=== PATIENT | male | born 1950 | race Caucasian/White ===

== ENCOUNTER → 2017-07-25 | Outpatient (CLI) | payer OTHER ==
[2017-07-25 12:50] LABS: ALT 33 U/L (21-72); AST 17 U/L (17-59); Alkaline Phosphatase 48 U/L (38-126); Anion Gap 9 mmol/L; Blood Urea Nitrogen 22 mg/dL (9-20); Calcium 9.1 mg/dL (8.4-10.2); Carbon Dioxide 20 mmol/L (22-30); Chloride 105 mmol/L (98-107); Glucose 222 mg/dL (74-99); Non-African American GFR(MDRD) >60 (>60 ml/min/1.73 sqM); Sodium 134 mmol/L (137-145); Total Bilirubin 0.5 mg/dL (0.2-1.3); Total Protein 6.7 g/dL (6.3-8.2)
[2017-07-25 13:19] LABS: Prostate Specific Antigen 0.61 ng/mL (0.00-4.00)
[2017-07-25 20:44] LABS: Hemoglobin A1C 5.8 % (4.2-6.1)
== END ==
LOC: LABWHC1 10:50
PROVIDERS: ATTEND Internal Medicine
DX: E11.9 Type 2 diabetes mellitus without complications (principal); E03.9 Hypothyroidism, unspecified; I10 Essential (primary) hypertension; N40.0 Benign prostatic hyperplasia without lower urinary tract symptoms
CPT/HCPCS: 36415; 80053; 83036; 84153

== ENCOUNTER 2017-10-13 08:17 | Observation (INO) | payer OTHER ==
[2017-10-13] MEDS ORDERED: SODIUM CHLORIDE 0.9% 1,000 ML IV STA (08:20)
[2017-10-13] MEDS ORDERED: SODIUM CHLORIDE 0.9% 500 ML IV STA (08:20)
--- NOTE | 2017-10-13 08:24 | ED ---
General Adult HPI - General Stated complaint: Syncope Time Seen by Provider: 10/13/17 08:20 Source: patient, EMS, RN notes reviewed - History of Present Illness Initial comments: 66-year-old male with past medical history of hypertension and diabetes presents with syncopal episode. Patient got up this morning, went outside for a smoke, came and took his medications, had an episode of nausea and vomited one time. Patient states he then went to his chair, according to EMS did from a chair and collapsed. He was unresponsive according to family. When EMS arrived patient was alert and oriented, no postictal state. Patient's blood pressure at that time was 80 systolic, heart rate 60. Patient was pale and diaphoretic. Patient has no pain complaints. No headache. No neck pain. No chest pain shortness of breath. No abdominal pain. Patient states when he went to bed this morning he felt well. - Related Data Home Medications Medication Instructions Recorded Confirmed INSULIN LISPRO (humaLOG) [humaLOG] See Protocol SQ TID PRN 12/08/15 07/18/16 Divalproex ER [Depakote ER] 1,000 mg PO HS 12/15/15 07/18/16 Loratadine [Claritin] 10 mg PO DAILY 12/15/15 07/18/16 DULoxetine HCL [Cymbalta] 60 mg PO DAILY 07/18/16 07/18/16 Insulin Glargine,Hum.rec.anlog 30 units INJ HS 07/18/16 07/18/16 [Toujeo Solostar] Lisinopril [Zestril] 10 mg PO DAILY 07/18/16 07/18/16 Previous Rx's Medication Instructions Recorded Atorvastatin [Lipitor] 10 mg PO HS #30 tab 12/03/15 LORazepam [Ativan] 1 mg PO Q8HR PRN #30 tab 12/03/15 Levothyroxine Sodium [Synthroid] 75 mcg PO DAILY@0630 #30 tab 12/03/15 Allergies Allergy/AdvReac Type Severity Reaction Status Date / Time No Known Allergies Allergy Verified 10/13/17 08:22 Review of Systems ROS Statement: Those systems with pertinent positive or pertinent negative responses have been documented in the HPI. ROS Other: All systems not noted in ROS Statement are negative. Past Medical History Past Medical History: Diabetes Mellitus, Hyperlipidemia, Hypertension, Thyroid Disorder History of Any Multi-Drug Resistant Organisms: None Reported Past Surgical History: Orthopedic Surgery Additional Past Surgical History / Comment(s): right hip, Past Psychological History: Bipolar, PTSD Smoking Status: Current some day smoker Past Alcohol Use History: None Reported Past Drug Use History: None Reported General Exam General appearance: alert, lethargic Head exam: Present: atraumatic, normocephalic Eye exam: Present: normal appearance, PERRL ENT exam: Present: normal exam Neck exam: Present: normal inspection. Absent: tenderness, meningismus Respiratory exam: Present: normal lung sounds bilaterally. Absent: respiratory distress Cardiovascular Exam: Present: regular rate, normal rhythm GI/Abdominal exam: Present: soft. Absent: distended, tenderness Extremities exam: Present: normal inspection, normal capillary refill. Absent: pedal edema Neurological exam: Present: alert, oriented X3, CN II-XII intact. Absent: motor sensory deficit Psychiatric exam: Present: normal affect, normal mood Skin exam: Present: warm, intact, diaphoretic. Absent: cyanosis Course Vital Signs 10/13/17 10/13/17 08:18 09:40 Temperature 97.1 F L Pulse Rate 65 Pulse Rate [ 70 Sitting] Pulse Rate [ 81 Standing] Pulse Rate [ 68 Supine] Respiratory 18 18 Rate Blood Pressure 128/58 Blood Pressure 100/53 [Sitting] Blood Pressure 97/52 [Standing] Blood Pressure 99/55 [Supine] O2 Sat by Pulse 100 Oximetry EKG Findings - EKG Comments: EKG Findings:: EKG shows sinus rhythm with first-degree AV block, ventricular rate 65, DC interval 228, QRS duration 84, QTC 45, no ST segment elevation or depression, no T-wave abnormality Medical Decision Making - Medical Decision Making 66-year-old male presenting with syncopal episode. Patient's history consistent with vasovagal syncope, although patient is somewhat orthostatic in the emergency department. Chest x-ray was obtained, shows no focal pneumonia or acute findings. CT of the head is negative for intracranial hemorrhage, there is a old lacunar infarct unchanged from previous. Hemoglobin stable 12.3 , potassium mildly elevated 5.4. Creatinine 1.3 from baseline 1.1. Troponin is negative. Patient is given IV hydration emergency department. He will be admitted for telemetry, and continued IV hydration. - Lab Data Result diagrams: 10/13/17 08:35 10/13/17 08:35 Lab Results 10/13/17 10/13/17 10/13/17 Range/Units 08:35 08:35 08:35 WBC 5.1 (3.8-10.6) k/uL RBC 4.04 L (4.30-5.90) m/uL Hgb 12.3 L (13.0-17.5) gm/dL Hct 38.2 L (39.0-53.0) % MCV 94.6 (80.0-100.0) fL MCH 30.4 (25.0-35.0) pg MCHC 32.1 (31.0-37.0) g/dL RDW 13.6 (11.5-15.5) % Plt Count 279 (150-450) k/uL Neutrophils % 62 % Lymphocytes % 27 % Monocytes % 6 % Eosinophils % 4 % Basophils % 1 % Neutrophils # 3.2 (1.3-7.7) k/uL Lymphocytes # 1.4 (1.0-4.8) k/uL Monocytes # 0.3 (0-1.0) k/uL Eosinophils # 0.2 (0-0.7) k/uL Basophils # 0.1 (0-0.2) k/uL PT (9.0-12.0) sec INR (<1.2) APTT (22.0-30.0) sec Sodium 140 (137-145) mmol/L Potassium 5.4 H (3.5-5.1) mmol/L Chloride 107 (98-107) mmol/L Carbon Dioxide 25 (22-30) mmol/L Anion Gap 8 mmol/L BUN 28 H (9-20) mg/dL Creatinine 1.38 H (0.66-1.25) mg/dL Est GFR (MDRD) Af Amer >60 (>60 ml/min/1.73 sqM) Est GFR (MDRD) Non-Af 52 (>60 ml/min/1.73 sqM) Glucose 112 H (74-99) mg/dL Calcium 9.5 (8.4-10.2) mg/dL Magnesium 1.9 (1.6-2.3) mg/dL Total Bilirubin 0.4 (0.2-1.3) mg/dL AST 17 (17-59) U/L ALT 25 (21-72) U/L Alkaline Phosphatase 44 (38-126) U/L Total Creatine Kinase 61 (55-170) U/L CK-MB (CK-2) 0.4 (0.0-2.4) ng/mL CK-MB (CK-2) Rel Index 0.7 Troponin I <0.012 (0.000-0.034) ng/mL Total Protein 6.9 (6.3-8.2) g/dL Albumin 3.9 (3.5-5.0) g/dL 10/13/17 Range/Units 08:35 WBC (3.8-10.6) k/uL RBC (4.30-5.90) m/uL Hgb (13.0-17.5) gm/dL Hct (39.0-53.0) % MCV (80.0-100.0) fL MCH (25.0-35.0) pg MCHC (31.0-37.0) g/dL RDW (11.5-15.5) % Plt Count (150-450) k/uL Neutrophils % % Lymphocytes % % Monocytes % % Eosinophils % % Basophils % % Neutrophils # (1.3-7.7) k/uL Lymphocytes # (1.0-4.8) k/uL Monocytes # (0-1.0) k/uL Eosinophils # (0-0.7) k/uL Basophils # (0-0.2) k/uL PT 10.4 (9.0-12.0) sec INR 1.0 (<1.2) APTT 20.9 L (22.0-30.0) sec Sodium (137-145) mmol/L Potassium (3.5-5.1) mmol/L Chloride (98-107) mmol/L Carbon Dioxide (22-30) mmol/L Anion Gap mmol/L BUN (9-20) mg/dL Creatinine (0.66-1.25) mg/dL Est GFR (MDRD) Af Amer (>60 ml/min/1.73 sqM) Est GFR (MDRD) Non-Af (>60 ml/min/1.73 sqM) Glucose (74-99) mg/dL Calcium (8.4-10.2) mg/dL Magnesium (1.6-2.3) mg/dL Total Bilirubin (0.2-1.3) mg/dL AST (17-59) U/L ALT (21-72) U/L Alkaline Phosphatase (38-126) U/L Total Creatine Kinase (55-170) U/L CK-MB (CK-2) (0.0-2.4) ng/mL CK-MB (CK-2) Rel Index Troponin I (0.000-0.034) ng/mL Total Protein (6.3-8.2) g/dL Albumin (3.5-5.0) g/dL Disposition Clinical Impression: Vasovagal syncope, Syncope due to orthostatic hypotension, Acute kidney injury , Hyperkalemia Disposition: ADMITTED IP TO THIS [facility] Condition: Stable Referrals: Sol Cerda MD [Primary Care Provider] - 1-2 days Decision to Admit Reason: Admit from EC Decision Date: 10/13/17 Decision Time: 10:27
[2017-10-13 08:48] LABS: Basophils # (A) 0.1 k/uL (0-0.2); Basophils % (A) 1 %; CH 30.6; CHCM 32.5; Eosinophils # (A) 0.2 k/uL (0-0.7); Eosinophils % (A) 4 %; HCT 38.2 % (39.0-53.0); HGB 12.3 gm/dL (13.0-17.5); Luc # (Auto) 0.07; Luc % (Auto) 1; Lymphocytes # (A) 1.4 k/uL (1.0-4.8); Lymphocytes % (A) 27 %; MCH 30.4 pg (25.0-35.0); MCHC 32.1 g/dL (31.0-37.0); MCV 94.6 fL (80.0-100.0); Mean Platelet Volume 7.4; Monocytes # (A) 0.3 k/uL (0-1.0); Monocytes % (A) 6 %; Neutrophils # (A) 3.2 k/uL (1.3-7.7); Neutrophils % (A) 62 %; RBC 4.04 m/uL (4.30-5.90); RDW 13.6 % (11.5-15.5); WBC 5.1 k/uL (3.8-10.6); WBC (Perox) 5.31
[2017-10-13 08:57] LABS: ALT 25 U/L (21-72); AST 17 U/L (17-59); Alkaline Phosphatase 44 U/L (38-126); Anion Gap 8 mmol/L; Blood Urea Nitrogen 28 mg/dL (9-20); Calcium 9.5 mg/dL (8.4-10.2); Carbon Dioxide 25 mmol/L (22-30); Chloride 107 mmol/L (98-107); Glucose 112 mg/dL (74-99); Magnesium 1.9 mg/dL (1.6-2.3); Non-African American GFR(MDRD) 52 (>60 ml/min/1.73 sqM); Potassium 5.4 mmol/L (3.5-5.1); Sodium 140 mmol/L (137-145); Total Bilirubin 0.4 mg/dL (0.2-1.3); Total Protein 6.9 g/dL (6.3-8.2)
[2017-10-13 09:08] LABS: Prothrombin Time 10.4 sec (9.0-12.0)
[2017-10-13 09:09] LABS: Creatine Kinase 61 U/L (55-170)
[2017-10-13 09:21] LABS: Creatine Kinase MB 0.4 ng/mL (0.0-2.4); Troponin I <0.012 ng/mL (0.000-0.034)
--- NOTE | 2017-10-13 09:25 | XR ---
EXAMINATION TYPE: XR chest 2V DATE OF EXAM: 10/13/2017 HISTORY: syncope. REFERENCE: Previous study dated 12/08/2015. FINDINGS: The lungs are overinflated. The lungs are clear. Pleural spaces are clear. The heart is mil dly prominent. IMPRESSION: 1. COPD. 2. BORDERLINE CARDIOMEGALY.
[2017-10-13 09:31] LABS: Partial Thromboplastin Time 20.9 sec (22.0-30.0)
--- NOTE | 2017-10-13 09:34 | CT ---
EXAMINATION TYPE: CT brain wo con DATE OF EXAM: 10/13/2017 COMPARISON: Previous study dated 11/05/2015 HISTORY: Syncope CT DLP: 1028.8 mGycm Automated exposure control for dose reduction was used. FINDINGS: There is evidence of an old lacunar infarct in the internal capsule on the right. This was present pr eviously. Central structures are midline. There is no evidence of hydrocephalus. There is some diffus e periventricular white matter lucency, compatible with chronic white matter ischemic change. There i s no acute focal lesion, mass effect or midline shift identified. I do not see evidence of intracrani al blood. Visualized portions of the paranasal sinuses and mastoids are clear. No depressed skull fracture is s een. IMPRESSION: 1. NO ACUTE INTRACRANIAL ABNORMALITY. 2. EVIDENCE OF ABNORMAL LACUNAR INFARCT IN THE RIGHT INTERNAL CAPSULE. 3. WHITE MATTER ISCHEMIC CHANGE.
[2017-10-13] MEDS ORDERED: ACETAMINOPHEN TAB 325 MG TAB PO PRN (10:20)
[2017-10-13] MEDS ORDERED: NALOXONE 0.4 MG/ML 1 ML VIAL IV PRN (10:20)
[2017-10-13] MEDS ORDERED: SODIUM CHLORIDE 0.9% 500 ML IV ONE (10:20)
[2017-10-13] MEDS ORDERED: ONDANSETRON 4 MG/2 ML VIAL IVP PRN (10:20)
[2017-10-13 11:47] VITALS: BMI 22.4
[2017-10-13] MEDS ORDERED: INSULIN LISPRO 12 UNIT SQ PRN (13:22)
[2017-10-13] MEDS ORDERED: PALIPERIDONE IM 156 MG/ML SYG IM SCH (13:30)
--- NOTE | 2017-10-13 13:51 | P.HPIM ---
History of Present Illness 66-year-old male with past medical history of hypertension and diabetes presents with syncopal episode. Patient got up this morning, went outside for a smoke, came and took his medications, had an episode of nausea and vomited one time. Patient states he then went to his chair, according to EMS did from a chair and collapsed. He was unresponsive according to family. When EMS arrived patient was alert and oriented, no postictal state. Patient's blood pressure at that time was 80 systolic, heart rate 60. Patient was pale and diaphoretic. Patient has no pain complaints. No headache. No neck pain. No chest pain shortness of breath. No abdominal pain. Patient states when he went to bed this morning he felt well. Patient does have elevated creatinine patient does have positive orthostatic vitals. Patient was started on IV fluids and lisinopril will be held. I'll change the insulin regimen a little bit today and we will increase the dose of Lantus decrease the dose of pre-meal insulin along with sliding scale insulin. Review of Systems REVIEW OF SYSTEMS: CONSTITUTIONAL: No fever, no malaise, no fatigue. HEENT: No recent visual problems or hearing problems. Denied any sore throat. CARDIOVASCULAR: No chest pain, orthopnea, PND, no palpitations, PULMONARY: No shortness of breath, no cough, no hemoptysis. GASTROINTESTINAL: No diarrhea, no nausea, no vomiting, no abdominal pain. Normoactive bowel sounds. NEUROLOGICAL: No headaches, no weakness, no numbness. HEMATOLOGICAL: Denies any bleeding or petechiae. GENITOURINARY: Denies any burning micturition, frequency, or urgency. MUSCULOSKELETAL/RHEUMATOLOGICAL: Denies any joint pain, swelling, or any muscle pain. ENDOCRINE: Denies any polyuria or polydipsia. The rest of the 14-point review of systems is negative. Past Medical History Past Medical History: Diabetes Mellitus, Hyperlipidemia, Hypertension, Thyroid Disorder History of Any Multi-Drug Resistant Organisms: None Reported Past Surgical History: Orthopedic Surgery Additional Past Surgical History / Comment(s): right hip, Past Psychological History: Bipolar, PTSD Smoking Status: Current some day smoker Past Alcohol Use History: None Reported Past Drug Use History: None Reported Medications and Allergies Home Medications Medication Instructions Recorded Confirmed Type Atorvastatin [Lipitor] 10 mg PO HS #30 tab 01/08/16 11/18/17 Rx Levothyroxine Sodium [Synthroid] 75 mcg PO DAILY@0630 #30 tab 12/03/15 10/13/17 Rx INSULIN LISPRO (humaLOG) [humaLOG] 35 unit SQ TID PRN 12/08/15 10/13/17 History Loratadine [Claritin] 10 mg PO DAILY 12/15/15 10/13/17 History Insulin Glargine,Hum.rec.anlog 30 units INJ HS 07/18/16 10/13/17 History [Toujeo Solostar] Lisinopril [Zestril] 10 mg PO DAILY 07/18/16 10/13/17 History Paliperidone IM [Invega Sustenna] 156 mg IM DIRECTED 10/13/17 10/13/17 History fluvoxaMINE [Luvox] 50 mg PO DAILY 10/13/17 10/13/17 History Allergies Allergy/AdvReac Type Severity Reaction Status Date / Time No Known Allergies Allergy Verified 10/13/17 12:13 Physical Exam Vitals: Vital Signs Temp Pulse Pulse Pulse Pulse Resp BP 10/13/17 12:00 98.0 F 71 20 10/13/17 11:32 98.0 F 71 20 10/13/17 11:00 97.8 F 68 20 123/58 10/13/17 09:40 70 81 68 18 10/13/17 08:18 97.1 F L 65 18 128/58 BP BP BP Pulse Ox 10/13/17 12:00 151/87 100 10/13/17 11:32 151/87 100 10/13/17 11:00 98 10/13/17 09:40 100/53 97/52 99/55 10/13/17 08:18 100 Intake and Output 10/12/17 10/13/17 10/13/17 22:59 06:59 14:59 Intake Total 1939 Balance 1939 Intake: Intake, IV Titration 1700 Amount Sodium Chloride 0.9% 1, 700 000 ml @ 100 mls/hr IV . Q10H STA Rx#:[id number] Sodium Chloride 0.9% 500 500 ml @ 999 mls/hr IV .Q31M ONE Rx#:[id number] Sodium Chloride 0.9% 500 500 ml @ 999 mls/hr IV .Q31M STA Rx#:[id number] Oral 240 Other: Voiding Method Urinal Weight 74.843 kg Patient Weight 10/14/17 06:59 Weight 74.843 kg PHYSICAL EXAMINATION: GENERAL: The patient is alert and oriented x3, not in any acute distress. Well developed, well nourished. HEENT: Pupils are round and equally reacting to light. EOMI. No scleral icterus. No conjunctival pallor. Normocephalic, atraumatic. No pharyngeal erythema. No thyromegaly. CARDIOVASCULAR: S1 and S2 present. No murmurs, rubs, or gallops. PULMONARY: Chest is clear to auscultation, no wheezing or crackles. ABDOMEN: Soft, nontender, nondistended, normoactive bowel sounds. No palpable organomegaly. MUSCULOSKELETAL: No joint swelling or deformity. EXTREMITIES: No cyanosis, clubbing, or pedal edema. NEUROLOGICAL: Gross neurological examination did not reveal any focal deficits. SKIN: No rashes. Results CBC & Chem 7: 10/13/17 08:35 10/13/17 08:35 Labs: Abnormal Lab Results - Last 24 Hours (Table) 10/13/17 10/13/17 10/13/17 Range/Units 08:35 08:35 08:35 RBC 4.04 L (4.30-5.90) m/uL Hgb 12.3 L (13.0-17.5) gm/dL Hct 38.2 L (39.0-53.0) % APTT 20.9 L (22.0-30.0) sec Potassium 5.4 H (3.5-5.1) mmol/L BUN 28 H (9-20) mg/dL Creatinine 1.38 H (0.66-1.25) mg/dL Glucose 112 H (74-99) mg/dL Thrombosis Risk Factor Assmnt - Choose All That Apply Any of the Below Risk Factors Present?: Yes Each Factor Represents 1 point: Abnormal pulmonary function (COPD) Other Risk Factors: Yes Each Risk Factor Represents 2 Points: Age 61-74 years Other congenital or acquired thrombophilia - If yes, enter type in comment: No Thrombosis Risk Factor Assessment Total Risk Factor Score: 3 Thrombosis Risk Factor Assessment Level: Moderate Risk Assessment and Plan Plan: #1 syncope: Intravascularly depletion. Patient was started on IV fluids at 100 mL per hour lisinopril will be held. Patient does have significant psychiatric issues probably has poor Sonia intake denied any diarrhea at this time. #2 acute renal failure: Prerenal azotemia due to intravascular volume depletion as mentioned above IV fluids as mentioned above. #3 type 2 diabetes mellitus: We'll change his insulin regimen increase the dose of long-acting insulin decrease a low-dose of pre-meal insulin along with sliding scale be. #4 hypertension lisinopril will be held due to acute renal dysfunction and syncope and intravascular volume depletion. #5 other psychiatric issues continue her home psychiatric medications including Depakote #6 hyperlipidemia #7 hypothyroidism #8 nicotine abuse: Counseling was provided For above-mentioned chronic medical problems patient will be continued on appropriate home medications
[2017-10-13 14:54] LABS: Glucose,Whole Blood 116 mg/dL (75-99)
[2017-10-13 15:09] LABS: Creatine Kinase 63 U/L (55-170)
[2017-10-13 15:15] LABS: Creatine Kinase MB 0.5 ng/mL (0.0-2.4); Troponin I <0.012 ng/mL (0.000-0.034)
[2017-10-13 16:38] LABS: Glucose,Whole Blood 192 mg/dL (75-99)
[2017-10-13 16:51] LABS: Appearance,Urine Clear (Clear); Bilirubin,Urine Negative (Negative); Glucose,Urine (UA) Negative (Negative); Ketones,Urine 1+ (Negative); Leukocyte Esterase,Urine Negative (Negative); Nitrite,Urine Negative (Negative); Protein,Urine Negative (Negative); UA Billing (MACRO vs. MICRO) CHEM; Urobilinogen,Urine <2.0 mg/dL (<2.0)
[2017-10-13] MEDS: INSULIN ASPART 100 UNIT/ML 1 ML 10 ML VIAL SQ SCH (17:01)
[2017-10-13] MEDS: SODIUM CHLORIDE 0.9% 1,000 ML IV SCH ×2 (17:01→23:48)
[2017-10-13 20:53] LABS: Glucose,Whole Blood 180 mg/dL (75-99)
[2017-10-13] MEDS ORDERED: INSULIN DETEMIR 100 UNIT/ML 10 ML VIAL SQ SCH (21:00)
[2017-10-13] MEDS ORDERED: ATORVASTATIN 10 MG TAB PO SCH (21:00)
[2017-10-13 21:15] LABS: Creatine Kinase 69 U/L (55-170)
[2017-10-13 21:28] LABS: Creatine Kinase MB 0.5 ng/mL (0.0-2.4); Troponin I <0.012 ng/mL (0.000-0.034)
[2017-10-14 05:49] LABS: Glucose,Whole Blood 43 mg/dL (75-99)
[2017-10-14 06:10] LABS: Glucose,Whole Blood 63 mg/dL (75-99)
[2017-10-14 06:21] LABS: Basophils % (A) 1 %; CH 30.5; CHCM 33.3; Eosinophils # (A) 0.2 k/uL (0-0.7); Eosinophils % (A) 3 %; HCT 33.7 % (39.0-53.0); HDW 2.34; HGB 11.2 gm/dL (13.0-17.5); Luc # (Auto) 0.12; Luc % (Auto) 2; Lymphocytes # (A) 1.9 k/uL (1.0-4.8); Lymphocytes % (A) 36 %; MCH 30.6 pg (25.0-35.0); MCHC 33.1 g/dL (31.0-37.0); MCV 92.2 fL (80.0-100.0); Mean Platelet Volume 6.7; Monocytes # (A) 0.4 k/uL (0-1.0); Monocytes % (A) 7 %; Neutrophils # (A) 2.8 k/uL (1.3-7.7); Neutrophils % (A) 52 %; RBC 3.65 m/uL (4.30-5.90); RDW 12.8 % (11.5-15.5); WBC 5.4 k/uL (3.8-10.6)
[2017-10-14] MEDS ORDERED: LEVOTHYROXINE 75 MCG TAB PO SCH (06:30)
[2017-10-14 06:44] LABS: ALT 26 U/L (21-72); AST 16 U/L (17-59); Alkaline Phosphatase 36 U/L (38-126); Anion Gap 7 mmol/L; Blood Urea Nitrogen 22 mg/dL (9-20); Calcium 8.9 mg/dL (8.4-10.2); Carbon Dioxide 22 mmol/L (22-30); Chloride 110 mmol/L (98-107); Non-African American GFR(MDRD) >60 (>60 ml/min/1.73 sqM); Potassium 4.5 mmol/L (3.5-5.1); Sodium 139 mmol/L (137-145); Total Bilirubin 0.4 mg/dL (0.2-1.3); Total Protein 6.2 g/dL (6.3-8.2)
[2017-10-14 06:45] LABS: Glucose,Whole Blood 98 mg/dL (75-99)
[2017-10-14 06:59] LABS: Glucose 42 mg/dL (74-99)
[2017-10-14] MEDS: INSULIN ASPART 100 UNIT/ML 1 ML 10 ML VIAL SQ SCH ×2 (07:02→11:49)
[2017-10-14 08:49] VITALS: RESP 16
--- NOTE | 2017-10-14 08:54 | ECHOF ---
Referral Reason:syncope MEASUREMENTS -------- HEIGHT: 172.7 cm WEIGHT: 74.8 kg BP: IVSd: 1.1 cm (0.6 - 1.1) LVIDd: 2.9 cm (3.9 - 5.3) LVPWd: 1.2 cm (0.6 - 1.1) IVSs: 1.7 cm LVIDs: 2.0 cm LVPWs: 1.4 cm Ao Diam: 2.9 cm (2.0 - 3.7) AV Cusp: 1.9 cm (1.5 - 2.6) LA Diam: 2.5 cm (2.7 - 3.8) MV EXCURSION: 14.924 mm (> 18.000) MV EF SLOPE: 85 mm/s (70 - 150) EPSS: 0.8 cm MV E Fritz: 1.25 m/s MV DecT: 145 ms MV A Fritz: 1.43 m/s MV E/A Ratio: 0.87 FINDINGS -------- Sinus rhythm. This was a technically good study. The left ventricular size is normal. There is borderline concentric left ventricular hypertrophy. Overall left ventricular systolic function is normal with, an EF between 55 - 60 %. The right ventricle is normal in size and function. The left atrium is normal in size. The right atrium is normal in size. The aortic valve is trileaflet, and appears structurally normal. No aortic stenosis or regurgitation. The mitral valve leaflets are mildly thickened. Mild mitral regurgitation is present. Mild tricuspid regurgitation present. The right ventricular systolic pressure, as measured by Doppl er, is {RVSP}. Pulmonic valve appears structurally normal. The aortic root size is normal. The pericardium is normal. CONCLUSIONS -------- 1. Sinus rhythm. 2. This was a technically good study. 3. The left ventricular size is normal. 4. There is borderline concentric left ventricular hypertrophy. 5. Overall left ventricular systolic function is normal with, an EF between 55 - 60 %. 6. The right ventricle is normal in size and function. 7. The left atrium is normal in size. 8. The right atrium is normal in size. 9. The aortic valve is trileaflet, and appears structurally normal. No aortic stenosis or regurgitati on. 10. The mitral valve leaflets are mildly thickened. 11. Mild mitral regurgitation is present. 12. Mild tricuspid regurgitation present. 13. The right ventricular systolic pressure, as measured by Doppler, is {RVSP}. 14. Pulmonic valve appears structurally normal. 15. The aortic root size is normal. 16. The pericardium is normal. STORY TELLER: Blanca Nichols RDCS
[2017-10-14] MEDS: SODIUM CHLORIDE 0.9% 1,000 ML IV SCH (11:15)
[2017-10-14 11:25] LABS: Glucose,Whole Blood 260 mg/dL (75-99)
[2017-10-14 11:37] VITALS: BP 181/81; PULSE 65; TEMP 98.3
--- NOTE | 2017-10-14 13:45 | P.DS ---
Providers Date of admission: 10/13/17 10:20 Attending physician: Ashely Diaz Primary care physician: Zaida Lo [facility] Course: 66-year-old male with past medical history of hypertension and diabetes presents with syncopal episode. Patient got up this morning, went outside for a smoke, came and took his medications, had an episode of nausea and vomited one time. Patient states he then went to his chair, according to EMS did from a chair and collapsed. He was unresponsive according to family. When EMS arrived patient was alert and oriented, no postictal state. Patient's blood pressure at that time was 80 systolic, heart rate 60. Patient was pale and diaphoretic. Patient has no pain complaints. No headache. No neck pain. No chest pain shortness of breath. No abdominal pain. Patient states when he went to bed this morning he felt well. Patient does have elevated creatinine patient does have positive orthostatic vitals. Patient was started on IV fluids and lisinopril will be held. I'll change the insulin regimen a little bit today and we will increase the dose of Lantus decrease the dose of pre-meal insulin along with sliding scale insulin. Oct 14 2017 Patient is clinically doing well patient will be resumed on a low-dose of lisinopril echo cardiac murmur essentially within normal limits patient the blood sugars Doppler in spite of significantly lowering his insulin appropriate education to patient and his will be provided before I send him home today and patient the insulin regimen will be changed please refer to my department summary. PHYSICAL EXAMINATION: GENERAL: The patient is alert and oriented x3, not in any acute distress. Well developed, well nourished. HEENT: Pupils are round and equally reacting to light. EOMI. No scleral icterus. No conjunctival pallor. Normocephalic, atraumatic. No pharyngeal erythema. No thyromegaly. CARDIOVASCULAR: S1 and S2 present. No murmurs, rubs, or gallops. PULMONARY: Chest is clear to auscultation, no wheezing or crackles. ABDOMEN: Soft, nontender, nondistended, normoactive bowel sounds. No palpable organomegaly. MUSCULOSKELETAL: No joint swelling or deformity. EXTREMITIES: No cyanosis, clubbing, or pedal edema. NEUROLOGICAL: Gross neurological examination did not reveal any focal deficits. SKIN: No rashes. #1 syncope: Intravascularly depletion. Creatinine improved #2 acute renal failure: Prerenal azotemia improved #3 type 2 diabetes mellitus: #4 hypertension lisinopril will be held due to acute renal dysfunction and syncope and intravascular volume depletion. #5 other psychiatric issues continue her home psychiatric medications including Depakote #6 hyperlipidemia #7 hypothyroidism #8 nicotine abuse: Counseling was provided Patient Condition at Discharge: Stable Patient Condition at Discharge: Stable Plan - Discharge Summary New Discharge Prescriptions: Continue Atorvastatin [Lipitor] 10 mg PO HS #30 tab Levothyroxine Sodium [Synthroid] 75 mcg PO DAILY@0630 #30 tab Loratadine [Claritin] 10 mg PO DAILY fluvoxaMINE [Luvox] 50 mg PO DAILY Paliperidone IM [Invega Sustenna] 156 mg IM DIRECTED Changed Insulin Glargine,Hum.rec.anlog [Toujeo Solostar] 25 units INJ HS #0 INSULIN LISPRO (humaLOG) [humaLOG] 8 unit SQ TID PRN #0 PRN Reason: HYPERGLYCEMIA Lisinopril [Zestril] 5 mg PO DAILY #0 Discharge Medication List Atorvastatin [Lipitor] 10 mg PO HS #30 tab 12/03/15 [Rx] Levothyroxine Sodium [Synthroid] 75 mcg PO DAILY@0630 #30 tab 12/03/15 [Rx] Loratadine [Claritin] 10 mg PO DAILY 12/15/15 [History] Paliperidone IM [Invega Sustenna] 156 mg IM DIRECTED 10/13/17 [History] fluvoxaMINE [Luvox] 50 mg PO DAILY 10/13/17 [History] INSULIN LISPRO (humaLOG) [humaLOG] 8 unit SQ TID PRN #0 10/14/17 [Rx] Insulin Glargine,Hum.rec.anlog [Toujeo Solostar] 25 units INJ HS #0 10/14/17 [Rx ] Lisinopril [Zestril] 5 mg PO DAILY #0 10/14/17 [Rx] Follow up Appointment(s)/Referral(s): Sol Cerda MD [Primary Care Provider] - 3 Days (Please call office during normal business hours to schedule hospital follow up appointment.) Patient Instructions/Handouts: Syncope (DC) Discharge Disposition: HOME SELF-CARE
[2017-10-14] MEDS ORDERED: INSULIN DETEMIR 100 UNIT/ML 10 ML VIAL SQ SCH (21:00)
== END 2017-10-14 13:40 | disposition home or self-care (01) ==
LOC: EC 08:17 → 6SEL 10:20
PROVIDERS: ADMIT Internal Medicine; ATTEND Internal Medicine
DX: R55 Syncope and collapse (principal); E86.9 Volume depletion, unspecified; N17.9 Acute kidney failure, unspecified; I10 Essential (primary) hypertension; E78.5 Hyperlipidemia, unspecified; E11.9 Type 2 diabetes mellitus without complications; E03.9 Hypothyroidism, unspecified; J44.9 Chronic obstructive pulmonary disease, unspecified; F43.10 Post-traumatic stress disorder, unspecified; F31.9 Bipolar disorder, unspecified; F17.200 Nicotine dependence, unspecified, uncomplicated; Z79.4 Long term (current) use of insulin; Z79.899 Other long term (current) drug therapy
CPT/HCPCS: 99285 ×2; 96360 ×2; 96361 ×3; 36415; 93005; 93306; 80053 ×2; 82550; 82553; 83735; 84484; 85025 ×2; 85610; 85730; 81003; 71020; 70450; G0378 ×2

== ENCOUNTER 2018-12-06 20:59 | Inpatient (IN) | payer MEDICARE, OTHER ==
[2018-12-06] MEDS ORDERED: ENALAPRILAT 1.25 MG/ML 1 ML VIAL IVP STA (21:12)
[2018-12-06] MEDS ORDERED: IPRATROPIUM-ALBUTEROL 3 ML NEB INHALATION STA (21:12)
[2018-12-06] MEDS ORDERED: NITROGLYCERIN-D5W PMX 50 MG in DEXTROSE/WATER 1 250ML.BAG IV ONE (21:12)
--- NOTE | 2018-12-06 21:17 | ED ---
SOB HPI - General Stated Complaint: NICOLE Time Seen by Provider: 12/06/18 21:12 Source: patient, EMS Mode of arrival: EMS Limitations: no limitations - History of Present Illness Initial Comments: This is a 67-year-old male the ER for evaluation. Patient resents today for evaluation regarding significant shortness of breath, patient is insignificant rest for distress and unable to give history at this time patient's brought in by EMS EMS states patient was significantly profound hypoxic mildly responsive with oxygen in the 60s, pale diaphoretic. MD Complaint: shortness of breath -: unknown Radiation: other (Denies pain) Severity scale (1-10): 10 (Severe shortness of breath) Consistency: constant Known History Of: congestive heart failure Associated Symptoms: cough Treatments Prior to Arrival: oxygen, bronchodilator - Related Data Home Medications Medication Instructions Recorded Confirmed Loratadine [Claritin] 10 mg PO DAILY 12/15/15 12/06/18 fluvoxaMINE [Luvox] 50 mg PO DAILY 10/13/17 12/06/18 Insulin Degludec [Tresiba 25 unit SQ HS 12/06/18 12/06/18 Flextouch U-100] Insulin Lispro [Admelog] See Protocol SQ AC-TID 12/06/18 12/06/18 Levothyroxine Sodium [Synthroid] 75 mcg PO DAILY 12/06/18 12/06/18 Previous Rx's Medication Instructions Recorded Lisinopril [Zestril] 5 mg PO DAILY #0 10/14/17 Allergies Allergy/AdvReac Type Severity Reaction Status Date / Time No Known Allergies Allergy Verified 12/06/18 21:41 Review of Systems ROS Statement: Those systems with pertinent positive or pertinent negative responses have been documented in the HPI. ROS Other: All systems not noted in ROS Statement are negative. Past Medical History Past Medical History: Diabetes Mellitus, Hyperlipidemia, Hypertension, Thyroid Disorder History of Any Multi-Drug Resistant Organisms: None Reported Past Surgical History: Orthopedic Surgery Additional Past Surgical History / Comment(s): right hip, Past Psychological History: Bipolar, PTSD Smoking Status: Current some day smoker Past Alcohol Use History: None Reported Past Drug Use History: None Reported General Exam Limitations: altered mental status General appearance: alert, in distress Head exam: Present: atraumatic, normocephalic, normal inspection Eye exam: Present: normal appearance, PERRL, EOMI. Absent: scleral icterus, conjunctival injection, periorbital swelling ENT exam: Present: normal exam, mucous membranes moist Neck exam: Present: normal inspection. Absent: tenderness, meningismus, lymphadenopathy Respiratory exam: Present: respiratory distress, wheezes, rales, accessory muscle use, decreased breath sounds, prolonged expiratory. Absent: rhonchi, stridor Cardiovascular Exam: Present: normal rhythm, tachycardia, normal heart sounds. Absent: systolic murmur, diastolic murmur, rubs, gallop, clicks GI/Abdominal exam: Present: soft, normal bowel sounds. Absent: distended, tenderness, guarding, rebound, rigid Extremities exam: Present: normal inspection, full ROM, normal capillary refill. Absent: tenderness, pedal edema, joint swelling, calf tenderness Back exam: Present: normal inspection Neurological exam: Present: alert, oriented X3, CN II-XII intact Psychiatric exam: Present: normal affect, normal mood Skin exam: Present: warm, dry, intact, normal color. Absent: rash Course Vital Signs 12/06/18 12/06/18 12/06/18 21:12 21:16 21:28 Temperature 98.0 F Pulse Rate 128 H 123 H Respiratory 38 H 38 H Rate Blood Pressure 199/107 203/93 O2 Sat by Pulse 68 L 90 L 93 L Oximetry 12/06/18 12/06/18 12/06/18 21:31 21:48 22:34 Temperature Pulse Rate 120 H 112 H 100 Respiratory 39 H 38 H 34 H Rate Blood Pressure 159/76 148/74 94/55 O2 Sat by Pulse 93 L 98 98 Oximetry 12/06/18 12/06/18 23:00 23:22 Temperature 98.3 F Pulse Rate 90 89 Respiratory 31 H 30 H Rate Blood Pressure 103/54 98/66 O2 Sat by Pulse 98 98 Oximetry - Reevaluation(s) Reevaluation #1: 12/06/18 23:35 Medical record is reviewed with long history of psychiatric illness Reevaluation #2: 12/06/18 23:35 Patient continues to deny history of chest pain Reevaluation #3: 12/06/18 23:35 Cardiology made aware of elevated troponin Reevaluation #4: 12/06/18 23:35 Patient continues to deny chest pain Medical Decision Making - Lab Data Result diagrams: 12/06/18 21:23 12/06/18 21:23 Lab Results 12/06/18 12/06/18 12/06/18 Range/Units 21:14 21:23 21:23 WBC 13.1 H (3.8-10.6) k/uL RBC 3.99 L (4.30-5.90) m/uL Hgb 11.7 L (13.0-17.5) gm/dL Hct 36.3 L (39.0-53.0) % MCV 91.0 (80.0-100.0) fL MCH 29.4 (25.0-35.0) pg MCHC 32.3 (31.0-37.0) g/dL RDW 12.6 (11.5-15.5) % Plt Count 460 H (150-450) k/uL Neutrophils % 85 % Lymphocytes % 9 % Monocytes % 4 % Eosinophils % 0 % Basophils % 0 % Neutrophils # 11.1 H (1.3-7.7) k/uL Lymphocytes # 1.2 (1.0-4.8) k/uL Monocytes # 0.6 (0-1.0) k/uL Eosinophils # 0.0 (0-0.7) k/uL Basophils # 0.0 (0-0.2) k/uL PT (9.0-12.0) sec INR (<1.2) APTT (22.0-30.0) sec Sodium (137-145) mmol/L Potassium (3.5-5.1) mmol/L Chloride (98-107) mmol/L Carbon Dioxide (22-30) mmol/L Anion Gap mmol/L BUN (9-20) mg/dL Creatinine (0.66-1.25) mg/dL Est GFR (CKD-EPI)AfAm (>60 ml/min/1.73 sqM) Est GFR (CKD-EPI)NonAf (>60 ml/min/1.73 sqM) Glucose (74-99) mg/dL POC Glucose (mg/dL) 162 H (75-99) mg/dL POC Glu [employer] Reel Cameraman ID Emelia Morris Calcium (8.4-10.2) mg/dL Magnesium (1.6-2.3) mg/dL Total Bilirubin (0.2-1.3) mg/dL AST (17-59) U/L ALT (21-72) U/L Alkaline Phosphatase (38-126) U/L CK-MB (CK-2) 5.1 H (0.0-2.4) ng/mL Troponin I 2.290 H* (0.000-0.034) ng/mL NT-Pro-B Natriuret Pep pg/mL Total Protein (6.3-8.2) g/dL Albumin (3.5-5.0) g/dL 12/06/18 12/06/18 12/06/18 Range/Units 21:23 21:23 21:23 WBC (3.8-10.6) k/uL RBC (4.30-5.90) m/uL Hgb (13.0-17.5) gm/dL Hct (39.0-53.0) % MCV (80.0-100.0) fL MCH (25.0-35.0) pg MCHC (31.0-37.0) g/dL RDW (11.5-15.5) % Plt Count (150-450) k/uL Neutrophils % % Lymphocytes % % Monocytes % % Eosinophils % % Basophils % % Neutrophils # (1.3-7.7) k/uL Lymphocytes # (1.0-4.8) k/uL Monocytes # (0-1.0) k/uL Eosinophils # (0-0.7) k/uL Basophils # (0-0.2) k/uL PT 10.7 (9.0-12.0) sec INR 1.0 (<1.2) APTT 22.1 (22.0-30.0) sec Sodium 136 L (137-145) mmol/L Potassium 4.3 (3.5-5.1) mmol/L Chloride 101 (98-107) mmol/L Carbon Dioxide 23 (22-30) mmol/L Anion Gap 12 mmol/L BUN 25 H (9-20) mg/dL Creatinine 1.18 (0.66-1.25) mg/dL Est GFR (CKD-EPI)AfAm 74 (>60 ml/min/1.73 sqM) Est GFR (CKD-EPI)NonAf 64 (>60 ml/min/1.73 sqM) Glucose 164 H (74-99) mg/dL POC Glucose (mg/dL) (75-99) mg/dL POC Glu [employer] Reel Cameraman ID Calcium 8.3 L (8.4-10.2) mg/dL Magnesium 2.0 (1.6-2.3) mg/dL Total Bilirubin 0.7 (0.2-1.3) mg/dL AST 83 H (17-59) U/L ALT 46 (21-72) U/L Alkaline Phosphatase 56 (38-126) U/L CK-MB (CK-2) (0.0-2.4) ng/mL Troponin I (0.000-0.034) ng/mL NT-Pro-B Natriuret Pep 7660 pg/mL Total Protein 7.0 (6.3-8.2) g/dL Albumin 3.7 (3.5-5.0) g/dL - EKG Data -: EKG Interpreted by Me (EKG shows sinus tachycardia rate of 123, [place] 178, QRS 80, QTC 409.) Interpretation: other (Repeat EKG shows sinus tachycardia rate of 112, [place] 182, QRS 80, QTC 03/29/1948) Critical Care Time Critical Care Time: Yes Total Critical Care Time: 65 Disposition Clinical Impression: Congestive heart failure, Acute pulmonary edema, Hypertension, Hypertensive emergency, Acute respiratory failure with hypoxia Disposition: ADMITTED IP TO THIS HOSP Condition: Critical Is patient prescribed a controlled substance at d/c from ED?: No Referrals: Sol Cerda MD [Primary Care Provider] - 1-2 days
--- NOTE | 2018-12-06 21:44 | XR ---
EXAMINATION TYPE: XR chest 1V portable DATE OF EXAM: 12/06/2018 COMPARISON: 10/13/2017 INDICATION: Short of breath TECHNIQUE: Frontal and lateral views of the chest are obtained. FINDINGS: The heart size is normal. The pulmonary vasculature is prominent. There is diffuse increased lung markings. Findings can be compatible with pulmonary edema. Additional etiologies could be considered. Clinical correlation is recommended. IMPRESSION: 1. Diffuse increased lung markings most likely on the basis of pulmonary edema. Infectious etiologies neoplasm could be considered within the differential. Follow-up is recommended.
[2018-12-06 22:12] LABS: Basophils % (A) 0 %; Eosinophils % (A) 0 %; HCT 36.3 % (39.0-53.0); HGB 11.7 gm/dL (13.0-17.5); Lymphocytes # (A) 1.2 k/uL (1.0-4.8); Lymphocytes % (A) 9 %; MCH 29.4 pg (25.0-35.0); MCHC 32.3 g/dL (31.0-37.0); Mean Platelet Volume 6.6; Monocytes # (A) 0.6 k/uL (0-1.0); Monocytes % (A) 4 %; Neutrophils # (A) 11.1 k/uL (1.3-7.7); Neutrophils % (A) 85 %; Platelet Count 460 k/uL (150-450); RBC 3.99 m/uL (4.30-5.90); RDW 12.6 % (11.5-15.5); WBC 13.1 k/uL (3.8-10.6)
[2018-12-06 22:25] LABS: Albumin 3.7 g/dL (3.5-5.0); Calcium 8.3 mg/dL (8.4-10.2); Potassium 4.3 mmol/L (3.5-5.1); Total Bilirubin 0.7 mg/dL (0.2-1.3)
[2018-12-06 22:31] LABS: Partial Thromboplastin Time 22.1 sec (22.0-30.0); Prothrombin Time 10.7 sec (9.0-12.0)
[2018-12-06 22:55] LABS: Creatine Kinase MB 5.1 ng/mL (0.0-2.4)
[2018-12-06 23:02] LABS: Troponin I 2.29 ng/mL (0.000-0.034)
[2018-12-06 23:08] LABS: Glucose,Whole Blood 162 mg/dL (75-99)
[2018-12-06] MEDS ORDERED: MORPHINE SULFATE 2 MG/ML SYRINGE IVP STA (23:19)
[2018-12-06] MEDS ORDERED: FUROSEMIDE 10 MG/ML 4 ML VIAL IV STA (23:19)
[2018-12-06] MEDS ORDERED: ASPIRIN 325 MG TAB PO STA (23:37)
[2018-12-06] MEDS ORDERED: NALOXONE 0.4 MG/ML 1 ML VIAL IV PRN (23:37)
[2018-12-06] MEDS ORDERED: HEPARIN SODIUM,PORCINE 5,000 UNIT/ML 1 ML VIAL IV ONE (23:39)
[2018-12-06] MEDS ORDERED: HEPARIN SOD,PORK IN 0.45% NACL 25,000 UNIT in 0.45% NACL 1 250ML.BAG IV SCH (23:45)
[2018-12-07 01:05] LABS: Glucose,Whole Blood 187 mg/dL (75-99)
[2018-12-07 05:38] LABS: Basophils % (A) 0 %; Eosinophils % (A) 0 %; HCT 32.7 % (39.0-53.0); HGB 10.3 gm/dL (13.0-17.5); Lymphocytes # (A) 0.4 k/uL (1.0-4.8); Lymphocytes % (A) 5 %; MCH 29.6 pg (25.0-35.0); MCHC 31.5 g/dL (31.0-37.0); MCV 93.8 fL (80.0-100.0); Mean Platelet Volume 6.5; Monocytes # (A) 0.2 k/uL (0-1.0); Monocytes % (A) 2 %; Neutrophils # (A) 8.2 k/uL (1.3-7.7); Neutrophils % (A) 93 %; Platelet Count 334 k/uL (150-450); RBC 3.49 m/uL (4.30-5.90); RDW 12.6 % (11.5-15.5); WBC 8.9 k/uL (3.8-10.6)
[2018-12-07 05:48] LABS: Partial Thromboplastin Time 33.6 sec (22.0-30.0); Prothrombin Time 10.7 sec (9.0-12.0)
[2018-12-07 05:58] LABS: Potassium 5.1 mmol/L (3.5-5.1)
--- NOTE | 2018-12-07 06:00 | XR ---
EXAMINATION TYPE: XR chest 1V DATE OF EXAM: 12/07/2018 HISTORY: Pulmonary edema. REFERENCE: Previous study dated 12/06/2018. FINDINGS: Aeration is improved in both lungs. Heart size remains mildly prominent. Lung volumes are p rominent. Pleural spaces are clear. IMPRESSION: IMPROVING CHANGES OF PULMONARY EDEMA.
[2018-12-07] MEDS: HEPARIN SODIUM,PORCINE 5,000 UNIT/ML 1 ML VIAL IV PRN (06:04)
[2018-12-07 06:36] LABS: Phosphorus 5.1 mg/dL (2.5-4.5)
[2018-12-07] MEDS ORDERED: FUROSEMIDE 10 MG/ML 4 ML VIAL IV STA (06:43)
[2018-12-07 06:53] LABS: Glucose,Whole Blood 209 mg/dL (75-99)
[2018-12-07] MEDS: INSULIN ASPART 100 UNIT/ML 1 ML 10 ML VIAL SQ SCH ×4 (07:03→20:22)
[2018-12-07] MEDS: IPRATROPIUM-ALBUTEROL 3 ML NEB INHALATION SCH ×2 (08:39→11:53)
[2018-12-07] MEDS: PANTOPRAZOLE 40 MG/10 ML VIAL IV SCH (09:08)
[2018-12-07] MEDS: METOPROLOL SUCCINATE (ER) 25 MG TAB.ER.24H PO SCH (11:36)
--- NOTE | 2018-12-07 12:12 | CONS ---
CONSULTATION CHIEF COMPLAINT: Shortness of breath. Faisal is a 68-year-old gentleman with history of bipolar mood disorder, insulin- requiring diabetes, and hypothyroidism who presented to hospital with shortness of breath that is getting progressively worse through yesterday. It was moderate to severe intensity at rest. He initially required BiPAP and is currently on nasal cannula O2. His chest x-ray revealed pulmonary edema and he responded very well to intravenous diuretics. EKG does not reveal acute ischemic changes, but he ruled in for myocardial infarction with a troponin of 6.2. At the time of my evaluation this morning, he is pain free, hemodynamically stable and in no apparent distress. His girlfriend is with him. Girlfriend is sedation maker if he cannot. He does not have any other family from what he tells us. I advised him to undergo cardiac catheterization. I will do this tomorrow. PAST MEDICAL HISTORY: Significant for hypothyroidism, bipolar mood disorder. MEDICATIONS: Include Zestril 5 q. daily, Synthroid 75, insulin, Luvox, and Claritin. ALLERGIES: There are no known drug allergies. FAMILY HISTORY: Negative for premature coronary artery disease. SOCIAL HISTORY: Negative for smoking, EtOH abuse, or drug abuse. REVIEW OF SYSTEMS: HEENT is unremarkable. CARDIAC: As described above. RESPIRATORY: As described above. GI: Negative. GENITOURINARY: Negative. MUSCULOSKELETAL: Negative. DERMATOLOGIC: Negative. CONSTITUTIONAL: Negative. ONCOLOGICAL: Negative. Rest of the system review is not relevant. PHYSICAL EXAM: Comfortable at rest. Heart rate is 79 beats and blood pressure is 111/64, respiratory rate is 18. There is no jugular venous distention. Carotid upstroke is normal. There is no bruit. Chest exam reveals good air entry bilaterally. Heart exam reveals first and second heart sounds. No gallop. No murmur. No rub. Abdomen is soft, nontender. Exam of extremities did not reveal edema. Peripheral pulses are felt. EKG shows sinus tachycardia with nonspecific ST-T wave changes and poor R-wave progression. Chest x-ray shows acute pulmonary edema. ASSESSMENT: Acute pulmonary edema, secondary to anteroseptal myocardial infarction. PLAN: Will treat the patient with aspirin, intravenous heparin and intravenous Lasix. Obtain a 2D echo. Continue the JOSE M inhibitors and I will add beta blockers to his regimen. Patient is stable at the moment and does not have any chest pain and the difficulty in breathing had improved. I will schedule him for a cardiac catheterization tomorrow morning unless his symptoms worsen. FLORIAN / PRASHANTN: [id number] /
[2018-12-07 12:24] LABS: Glucose,Whole Blood 249 mg/dL (75-99)
--- NOTE | 2018-12-07 13:06 | P.HPIM ---
History of Present Illness Etc.-year-old pleasant gentleman came in with complaints of shortness of breath patient was quite a bit short of breath when she even he came and patient is found to have pulmonary edema. Patient is later found to have highly elevated troponins of around 6.5. Patient does smoke never had any history of coronary artery disease. I do not have an EKG in the computer patient appears to have non-ST elevation microinfarction leading to congestive heart failure and acute systolic dysfunction patient will go for cardiac catheterization today patient is on antiplatelet therapy. Patient was given a dose of Lasix yesterday in the ER and today morning with significant improved symptoms of shortness of breath patient denied any orthopnea proximal nocturnal dyspnea patient's symptoms onset is 1 day duration patient denied any chest pain. She was comparing of dry cough denied any fever chills. Review of Systems REVIEW OF SYSTEMS: CONSTITUTIONAL: No fever, no malaise, no fatigue. HEENT: No recent visual problems or hearing problems. Denied any sore throat. CARDIOVASCULAR: No chest pain, orthopnea, PND, no palpitations, no syncope. PULMONARY:no hemoptysis. GASTROINTESTINAL: No diarrhea, no nausea, no vomiting, no abdominal pain. NEUROLOGICAL: No headaches, no weakness, no numbness. HEMATOLOGICAL: Denies any bleeding or petechiae. GENITOURINARY: Denies any burning micturition, frequency, or urgency. MUSCULOSKELETAL/RHEUMATOLOGICAL: Denies any joint pain, swelling, or any muscle pain. ENDOCRINE: Denies any polyuria or polydipsia. The rest of the 14-point review of systems is negative. Past Medical History Past Medical History: Diabetes Mellitus, Hyperlipidemia, Hypertension, Thyroid Disorder History of Any Multi-Drug Resistant Organisms: None Reported Past Surgical History: Orthopedic Surgery Additional Past Surgical History / Comment(s): right hip, Past Anesthesia/Blood Transfusion Reactions: No Reported Reaction Past Psychological History: No Psychological Hx Reported, Bipolar, PTSD Smoking Status: Current every day smoker Past Alcohol Use History: None Reported Past Drug Use History: None Reported Medications and Allergies Home Medications Medication Instructions Recorded Confirmed Type Loratadine [Claritin] 10 mg PO DAILY 12/15/15 12/06/18 History fluvoxaMINE [Luvox] 50 mg PO DAILY 10/13/17 12/06/18 History Lisinopril [Zestril] 5 mg PO DAILY #0 10/14/17 12/06/18 Rx Insulin Degludec [Tresiba 25 unit SQ HS 12/06/18 12/06/18 History Flextouch U-100] Insulin Lispro [Admelog] See Protocol SQ AC-TID 12/06/18 12/06/18 History Levothyroxine Sodium [Synthroid] 75 mcg PO DAILY 12/06/18 12/06/18 History Allergies Allergy/AdvReac Type Severity Reaction Status Date / Time No Known Allergies Allergy Verified 12/06/18 21:41 Physical Exam Vitals: Vital Signs Temp Pulse Resp BP Pulse Ox 12/07/18 12:04 85 12/07/18 12:00 98.1 F 81 24 123/67 100 12/07/18 11:53 80 12/07/18 11:00 84 14 108/64 95 12/07/18 10:00 79 13 111/64 94 L 12/07/18 09:00 80 10 L 107/65 99 12/07/18 08:50 84 12/07/18 08:39 84 12/07/18 08:00 97.7 F 73 20 104/60 98 12/07/18 07:00 77 22 105/63 99 12/07/18 06:00 73 10 L 96/62 98 12/07/18 05:00 76 20 118/68 100 12/07/18 04:00 97.4 F L 85 15 81/51 92 L 12/07/18 03:00 75 21 99/60 97 12/07/18 02:30 77 20 81/45 98 12/07/18 02:00 86 26 H 87/58 94 L 12/07/18 01:30 98.8 F 80 21 92/64 94 L 12/07/18 00:11 85 30 H 99/61 99 12/06/18 23:55 82 30 H 12/06/18 23:22 98.3 F 89 30 H 98/66 98 12/06/18 23:00 90 31 H 103/54 98 12/06/18 22:34 100 34 H 94/55 98 12/06/18 21:48 112 H 38 H 148/74 98 12/06/18 21:31 120 H 39 H 159/76 93 L 12/06/18 21:28 123 H 38 H 203/93 93 L 12/06/18 21:16 90 L 12/06/18 21:12 98.0 F 128 H 38 H 199/107 68 L Intake and Output 12/06/18 12/07/18 12/07/18 22:59 06:59 14:59 Intake Total 51.151 Output Total 100 1155 Balance -48.849 -1155 Intake: Intake, IV Titration 51.151 Amount Heparin Sod,Pork in 0.45% 51.151 NaCl 25,000 unit In 0.45 % NaCl 1 250ml.bag @ 10 mls/hr IV .Q24H [facility], [facility] Rx#: [id number] Output: Urine 100 1155 Other: Voiding Method Indwelling Catheter Weight 90.718 kg 94.6 kg PHYSICAL EXAMINATION: GENERAL: The patient is alert and oriented x3, not in any acute distress. Well developed, well nourished. HEENT: Pupils are round and equally reacting to light. EOMI. No scleral icterus. No conjunctival pallor. Normocephalic, atraumatic. No pharyngeal erythema. No thyromegaly. CARDIOVASCULAR: S1 and S2 present. No murmurs, rubs, or gallops. PULMONARY: Good air entry into bilateral lung krishna minimal bibasilar crackles were appreciated ABDOMEN: Soft, nontender, nondistended, normoactive bowel sounds. No palpable organomegaly. MUSCULOSKELETAL: No joint swelling or deformity. EXTREMITIES: No cyanosis, clubbing, or pedal edema. NEUROLOGICAL: Gross neurological examination did not reveal any focal deficits. SKIN: No rashes. Results CBC & Chem 7: 12/07/18 05:03 12/07/18 05:03 Labs: Abnormal Lab Results - Last 24 Hours (Table) 12/06/18 12/06/18 12/06/18 Range/Units 21:14 21:23 21:23 WBC 13.1 H (3.8-10.6) k/uL RBC 3.99 L (4.30-5.90) m/uL Hgb 11.7 L (13.0-17.5) gm/dL Hct 36.3 L (39.0-53.0) % Plt Count 460 H (150-450) k/uL Neutrophils # 11.1 H (1.3-7.7) k/uL Lymphocytes # (1.0-4.8) k/uL APTT (22.0-30.0) sec Sodium (137-145) mmol/L Carbon Dioxide (22-30) mmol/L BUN (9-20) mg/dL Creatinine (0.66-1.25) mg/dL Glucose (74-99) mg/dL POC Glucose (mg/dL) 162 H (75-99) mg/dL Calcium (8.4-10.2) mg/dL Phosphorus (2.5-4.5) mg/dL AST (17-59) U/L Total Creatine Kinase 4118 H* (55-170) U/L CK-MB (CK-2) 5.1 H (0.0-2.4) ng/mL Troponin I 2.290 H* (0.000-0.034) ng/mL 12/06/18 12/07/18 12/07/18 Range/Units 21:23 01:01 05:03 WBC (3.8-10.6) k/uL RBC (4.30-5.90) m/uL Hgb (13.0-17.5) gm/dL Hct (39.0-53.0) % Plt Count (150-450) k/uL Neutrophils # (1.3-7.7) k/uL Lymphocytes # (1.0-4.8) k/uL APTT 33.6 H (22.0-30.0) sec Sodium 136 L (137-145) mmol/L Carbon Dioxide (22-30) mmol/L BUN 25 H (9-20) mg/dL Creatinine (0.66-1.25) mg/dL Glucose 164 H (74-99) mg/dL POC Glucose (mg/dL) 187 H (75-99) mg/dL Calcium 8.3 L (8.4-10.2) mg/dL Phosphorus (2.5-4.5) mg/dL AST 83 H (17-59) U/L Total Creatine Kinase (55-170) U/L CK-MB (CK-2) (0.0-2.4) ng/mL Troponin I (0.000-0.034) ng/mL 12/07/18 12/07/18 12/07/18 Range/Units 05:03 05:03 05:03 WBC (3.8-10.6) k/uL RBC 3.49 L (4.30-5.90) m/uL Hgb 10.3 L (13.0-17.5) gm/dL Hct 32.7 L (39.0-53.0) % Plt Count (150-450) k/uL Neutrophils # 8.2 H (1.3-7.7) k/uL Lymphocytes # 0.4 L (1.0-4.8) k/uL APTT (22.0-30.0) sec Sodium 135 L (137-145) mmol/L Carbon Dioxide 19 L (22-30) mmol/L BUN 36 H (9-20) mg/dL Creatinine 1.45 H (0.66-1.25) mg/dL Glucose 203 H (74-99) mg/dL POC Glucose (mg/dL) (75-99) mg/dL Calcium 8.0 L (8.4-10.2) mg/dL Phosphorus (2.5-4.5) mg/dL AST (17-59) U/L Total Creatine Kinase (55-170) U/L CK-MB (CK-2) (0.0-2.4) ng/mL Troponin I 6.060 H* (0.000-0.034) ng/mL 12/07/18 12/07/18 12/07/18 Range/Units 05:03 06:50 11:56 WBC (3.8-10.6) k/uL RBC (4.30-5.90) m/uL Hgb (13.0-17.5) gm/dL Hct (39.0-53.0) % Plt Count (150-450) k/uL Neutrophils # (1.3-7.7) k/uL Lymphocytes # (1.0-4.8) k/uL APTT (22.0-30.0) sec Sodium (137-145) mmol/L Carbon Dioxide (22-30) mmol/L BUN (9-20) mg/dL Creatinine (0.66-1.25) mg/dL Glucose (74-99) mg/dL POC Glucose (mg/dL) 209 H 249 H (75-99) mg/dL Calcium (8.4-10.2) mg/dL Phosphorus 5.1 H (2.5-4.5) mg/dL AST (17-59) U/L Total Creatine Kinase (55-170) U/L CK-MB (CK-2) (0.0-2.4) ng/mL Troponin I (0.000-0.034) ng/mL Thrombosis Risk Factor Assmnt - Choose All That Apply Any of the Below Risk Factors Present?: No Assessment and Plan Plan: Silverio of breath of breath: Probably secondary to acute systolic dysfunction from acute myocardial infarction non-ST elevation microinfarction patient on IV heparin statin antiplatelet therapy patient will go for cardiac catheterization today cardiology evaluated the patient -Possible non-ST elevation microinfarction -Congestive heart failure appears to be acute systolic dysfunction for acute from acute myocardial infarction improved with Lasix. -Acute renal failure secondary to heart failure prerenal azotemia from heart failure further management as mentioned above -Possible chronic kidney disease from diabetic nephropathy Heparin type 2 diabetes mellitus continue sliding scale for now -Hyperlipidemia -Hypertension -Hypo-thyroidism for above-mentioned chronic medical problems patient will be resumed on appropriate home medications. -PTSD and bipolar disorder -Patient related pharmacologic GI prophylaxis patient is on IV heparin for non- ST elevation microinfarction at this time
--- NOTE | 2018-12-07 13:38 | ECHOF ---
Referral Reason:CHF MEASUREMENTS -------- HEIGHT: 182.9 cm WEIGHT: 94.3 kg BP: 116/64 RVIDd: 3.0 cm (< 3.3) IVSd: 1.1 cm (0.6 - 1.1) LVIDd: 5.3 cm (3.9 - 5.3) LVPWd: 1.1 cm (0.6 - 1.1) IVSs: 1.7 cm LVIDs: 3.6 cm LVPWs: 1.6 cm LA Diam: 3.7 cm (2.7 - 3.8) LAESV Index (A-L): 23.25 ml/m Ao Diam: 2.7 cm (2.0 - 3.7) AV Cusp: 2.0 cm (1.5 - 2.6) MV EXCURSION: 20.304 mm (> 18.000) MV EF SLOPE: 103 mm/s (70 - 150) EPSS: 2.7 cm MV E Fritz: 1.50 m/s MV DecT: 167 ms MV A Fritz: 1.00 m/s MV E/A Ratio: 1.49 FINDINGS -------- Sinus rhythm. This was a technically difficult study with suboptimal views. The left ventricular size is normal. There is borderline concentric left ventricular hypertrophy. Overall left ventricular systolic function is moderate-severely impaired with, an EF between 30 - 35 %. Apical anterior LV wall motion is hypokinetic. Apical lateral LV wall motion is hypokinetic. Apical inferior LV wall motion is hypokinetic. Apical septum LV wall motion is hypokinetic. The right ventricle is normal in size and function. Normal LA size by volume 22+/-6 ml/m2. The right atrium is normal in size. Lumason used There is mild aortic valve sclerosis. Mild mitral annular calcification present. Mild mitral regurgitation is present. The tricuspid valve appears structurally normal. The pulmonic valve was not well visualized. The aortic root size is normal. Normal inferior vena cava with normal inspiratory collapse consistent with estimated right atrial pre ssure of 5 mmHg. There is no pericardial effusion. CONCLUSIONS -------- 1. Sinus rhythm. 2. This was a technically difficult study with suboptimal views. 3. The left ventricular size is normal. 4. There is borderline concentric left ventricular hypertrophy. 5. Overall left ventricular systolic function is moderate-severely impaired with, an EF between 30 - 35 %. 6. Apical anterior LV wall motion is hypokinetic. 7. Apical lateral LV wall motion is hypokinetic. 8. Apical inferior LV wall motion is hypokinetic. 9. Apical septum LV wall motion is hypokinetic. 10. The right ventricle is normal in size and function. 11. Normal LA size by volume 22+/-6 ml/m2. 12. The right atrium is normal in size. 13. Lumason used 14. There is mild aortic valve sclerosis. 15. Mild mitral annular calcification present. 16. Mild mitral regurgitation is present. 17. The tricuspid valve appears structurally normal. 18. The pulmonic valve was not well visualized. 19. The aortic root size is normal. 20. Normal inferior vena cava with normal inspiratory collapse consistent with estimated right atrial pressure of 5 mmHg. 21. There is no pericardial effusion. PELLETIZER: Maddie Lafleur RDCS
[2018-12-07 13:45] LABS: Hemoglobin A1C 6.6 % (4.0-6.0)
[2018-12-07] MEDS ORDERED: IV FLUID CONTINUATION 750 ML IV ONE (13:45)
[2018-12-07] MEDS ORDERED: LIDOCAINE 1% INJ 10MG/ML (20 ML MDV) ONE (14:06)
[2018-12-07] MEDS ORDERED: fentaNYL (PF) 50 MCG/ML 2 ML AMP ONE (14:06)
[2018-12-07] MEDS ORDERED: MIDAZOLAM 2 MG/2 ML VIAL IV ONE (14:11)
[2018-12-07] MEDS ORDERED: LIDOCAINE 1% INJ 10MG/ML (20 ML MDV) SQ ONE (14:12)
[2018-12-07] MEDS ORDERED: FUROSEMIDE 10 MG/ML 4 ML VIAL ONE (14:28)
--- NOTE | 2018-12-07 14:30 | CONS ---
CONSULTATION PULMONARY CRITICAL CARE CONSULTATION: 12/07/2018 This is a very pleasant 68-year-old male who presented to the emergency room with complaints of shortness of breath. The patient apparently had been having it for about a week or so and it has been getting worse. He denies any chest pain, chest discomfort, or any other complaints for that matter. Denies any fever or chills. Denies cough. Denies phlegm production. Denies hemoptysis. No nausea, vomiting or diarrhea. I asked him multiple times about chest pain, chest discomfort, radiating pain, etc. He denies all of that. I saw him today in the ICU. He was on BiPAP. His BiPAP settings were 14/5 and 50%. He looked well enough that he could come off the BiPAP and I asked the nurses to get him off the BiPAP and onto some nasal prongs. The patient is currently on IV heparin. He is also on a saline IV KVO. He does have a history of hypertension, diabetes, hypothyroidism, and previous tobacco use. He was admitted to the hospital on the with a diagnosis of heart failure, hypertensive emergency/urgency, respiratory failure and elevated troponins. According to Cardiology that saw him today, the patient is going to go for a heart catheterization tomorrow. I think that is nathan. CURRENT MEDICATIONS: Include Claritin, Luvox, insulin, levothyroxine, lisinopril. ALLERGIES: Denied. MEDICAL HISTORY: Diabetes, hyperlipidemia, hypertension and hypothyroidism. SURGICAL HISTORY: Includes previous right hip procedure. SOCIAL HISTORY: Positive for ongoing tobacco use. FAMILY HISTORY: Noncontributory. REVIEW OF SYSTEMS: CONSTITUTIONAL: Negative. NEUROLOGIC: Negative. HEENT: Negative. CARDIOVASCULAR: Negative. PULMONARY: Shortness of breath. GI/: Negative. RHEUMATOLOGIC: Negative. IMMUNOLOGIC: Negative. ENDOCRINOLOGIC: Negative. DERMATOLOGIC: Negative. Current vital signs are reviewed. His temperature is 97.7, heart rate 73, respiratory rate 20, blood pressure 104/60, mean 74 and saturations are 98% to 99% on the BiPAP device. Appears no acute distress. Looks comfortable. Lying flat in bed. HEENT examination is grossly unremarkable. Mucous membranes are moist. BiPAP mask in place. Neck is supple. Full range of motion. No adenopathy or thyromegaly. I cannot be easily assess the neck veins. Cardiovascular examination reveals regular rhythm and rate. Heart rate in mid 70s. S1, S2 normal. No S3, S4. No distinct murmurs noted. Heart sounds are distant. Lungs reveal some bibasilar crackles. A few scattered rhonchi. Breath sounds are equal bilaterally. No wheezes. Abdomen is soft. Bowel sounds are heard. There is no masses or tenderness. Extremities are intact. No cyanosis, clubbing, or edema. Skin without rash. Neurologic examination is brief but nonfocal. The patient had a chest x-ray on the , which showed which showed findings consistent with pulmonary edema. A followup chest x-ray on the showed improving changes of pulmonary edema. LABS: Reviewed. White count 8.9, hemoglobin 10.3, hematocrit 32.7, platelet count normal. PT, INR normal, PTT 33./6. Sodium 135, potassium 5.1, chloride is 104, CO2 is 19, anion gap is 12, BUN and creatinine were 36 and 1.45. The patient's total CK was 4118. Her troponins were 2.290 and 6.060. N terminal proBNP was very elevated at 7660. Medications are reviewed. ASSESSMENT: 1. Rule out non ST-segment elevation myocardial infarction. 2. Pulmonary edema, secondary to #1. 3. History of environmental allergies. 4. History of diabetes mellitus. 5. History of hypertension. 6. History of hypothyroidism. PLAN: The patient will undergo catheterization in the near future. Additional recommendations and suggestions are forthcoming. Medications are reviewed. The patient is currently on appropriate medications. Will continue to follow. His oxygenation has improved. He can use the BiPAP as needed. MMODL / IJN: [id number] /
[2018-12-07] MEDS ORDERED: FUROSEMIDE 10 MG/ML 4 ML VIAL IV ONE (14:31)
[2018-12-07] MEDS ORDERED: IOPAMIDOL-370 125ML BTL INJ ONE (14:31)
[2018-12-07] MEDS ORDERED: RX INFO: IV CONTRAST WAS GIVEN 1 EACH MISC MISCELLANE PRN (14:34)
--- NOTE | 2018-12-07 15:08 | CC ---
CARDIAC CATHETERIZATION REPORT INDICATION: Acute myocardial infarction. PROCEDURE NOTE: After obtaining informed consent, left heart catheterization and coronary angiogram are performed via the right femoral artery using standard Kylee catheters. Patient tolerated the procedure well without any obvious immediate complications. A femoral angiogram was performed and Angio-Seal was deployed for hemostasis. Patient received moderate conscious sedation. Total sedation time was 24 minutes. FINDINGS: 1. HEMODYNAMICS: Left ventricular end-diastolic pressure is 22 mm. There is no significant gradient across the aortic valve. 2. LEFT VENTRICULOGRAM: Left ventriculogram is not performed. 3. ANGIOGRAPHIC DATA. LEFT MAIN CORONARY ARTERY: Left main coronary artery is a normal-sized vessel and is free of stenosis. Divides into left anterior descending coronary artery and circumflex coronary artery. Circumflex coronary artery is a large dominant vessel that shows 70% to 80% stenosis in the PDA and PLV branches and the OM2 has a 70% to 80% stenosis in the ostial portion. The LAD is a large vessel that wraps around the apex of the heart, shows multiple segmental lesions in its midportion as it gives off a diagonal branch. There is a 95% focal stenosis. The right coronary artery is a nondominant vessel that shows mild diffuse disease without focal stenotic lesions. The right coronary artery was engaged using a yoni catheter. All his vessels are heavily calcified. CONCLUSION: Severe 2-vessel coronary artery disease as described above with heavily calcified vessels. Patient's angiographic data was reviewed by Dr. Loly Galvez the on-call log truck driver who felt that patient is better off undergoing bypass surgery, has ischemic cardiomyopathy with severe LV dysfunction. Will resume the IV heparin, treat him with aspirin and beta blockers. Will consult the surgeon for bypass surgery. MMODL / IJN: [id number] /
[2018-12-07 16:33] LABS: Appearance,Urine Clear (Clear); Bilirubin,Urine Negative (Negative); Blood,Urine Negative (Negative); Color,Urine Light Yellow; Glucose,Urine (UA) Negative (Negative); Ketones,Urine Negative (Negative); Leukocyte Esterase,Urine Negative (Negative); Nitrite,Urine Negative (Negative); Protein,Urine Negative (Negative); Specific Gravity,Urine 1.018 (1.001-1.035); Urobilinogen,Urine <2.0 mg/dL (<2.0)
[2018-12-07 17:29] LABS: Glucose,Whole Blood 194 mg/dL (75-99)
--- NOTE | 2018-12-07 17:50 | US ---
EXAMINATION TYPE: US carotid duplex BILAT DATE OF EXAM: 12/07/2018 COMPARISON: NONE CLINICAL HISTORY: preop cardiac surgery. EXAM MEASUREMENTS: RIGHT: Peak Systolic Velocity (PSV) cm/sec ----- Right CCA: 68.0 ----- Right ICA: 197.5 ----- Right ECA: 137.0 ICA/CCA ratio: 2.9 RIGHT: End Diastole cm/sec ----- Right CCA: 14.6 ----- Right ICA: 50.3 ----- Right ECA: 8.7 LEFT: Peak Systolic Velocity (PSV) cm/sec ----- Left CCA: 114.1 ----- Left ICA: 114.0 ----- Left ECA: 133.7 ICA/CCA ratio: 1.0 LEFT: End Diastole cm/sec ----- Left CCA: 19.5 ----- Left ICA: 23.4 ----- Left ECA: 17.0 VERTEBRALS (direction of flow): Right Vertebral: Antegrade Left Vertebral: Antegrade Rhythm: Normal Moderate plaque, mild velocity increase seen on right, left shows no significant velocity increase. Somewhat technically difficult due to patient coughing. Grayscale, color Doppler, spectral Doppler imaging performed of the carotid arteries. IMPRESSION: Hemodynamic significant stenosis of the proximal internal carotid artery on the right co rresponding to 50-69% diameter reduction by Doppler criteria, an indirect measurement of carotid sten osis Criteria for Assigning % of Stenosis / Diameter reduction (Estimation based on the indirect measurements of the internal carotid artery velocities (ICA PSV). 1. Normal (no stenosis)=ICA PSV < 125 cm/s: ratio < 2.0: ICA EDV<40 cm/s. 2. Less than 50% stenosis=ICA PSV < 125 cm/s: ratio < 2.0: ICA EDV<40 cm/s. 3. 50 to 69% stenosis=ICA PSV of 125 to 230 cm/s: ration 2.0 ? 4.0: ICA EDV 40-100 cm/s. 4. Greater than 70% stenosis to near occlusion= ICA PSV > 230 cm/s: ratio > 4.0: ICA EDV > 100 cm/s. 5. Near occlusion= ICA PSV velocities may be low or undetectable: variable ratio and ICA EDV. 6. Total occlusion=unable to detect flow.
[2018-12-07] MEDS: HEPARIN SOD,PORK IN 0.45% NACL 25,000 UNIT in 0.45% NACL 1 250ML.BAG IV SCH (18:16)
[2018-12-07] MEDS: MUPIROCIN 2% OINT 22 GM TUBE TOPICAL SCH (20:22)
[2018-12-07 21:07] LABS: Glucose,Whole Blood 290 mg/dL (75-99)
[2018-12-08] MEDS: ASPIRIN 325 MG TAB PO SCH ×2 (00:11→07:47)
[2018-12-08] MEDS: guaiFENesin-Coden 100-10MG/5ML 10 ML CUP PO PRN ×4 (00:50→21:22)
[2018-12-08] MEDS: HEPARIN SODIUM,PORCINE 5,000 UNIT/ML 1 ML VIAL IV PRN ×2 (01:45→16:39)
[2018-12-08 04:55] LABS: Basophils % (A) 0 %; Eosinophils % (A) 0 %; HCT 28.9 % (39.0-53.0); HGB 10.2 gm/dL (13.0-17.5); Lymphocytes # (A) 0.6 k/uL (1.0-4.8); Lymphocytes % (A) 7 %; MCH 32.3 pg (25.0-35.0); MCHC 35.2 g/dL (31.0-37.0); MCV 91.7 fL (80.0-100.0); Mean Platelet Volume 7.5; Monocytes # (A) 0.7 k/uL (0-1.0); Monocytes % (A) 8 %; Neutrophils # (A) 6.6 k/uL (1.3-7.7); Neutrophils % (A) 83 %; Platelet Count 333 k/uL (150-450); RBC 3.15 m/uL (4.30-5.90)
[2018-12-08 05:08] LABS: Calcium 7.9 mg/dL (8.4-10.2); Magnesium 2.3 mg/dL (1.6-2.3); Potassium 5.1 mmol/L (3.5-5.1); Total Bilirubin 0.5 mg/dL (0.2-1.3); Total Protein 5.8 g/dL (6.3-8.2)
[2018-12-08 06:38] LABS: Glucose,Whole Blood 292 mg/dL (75-99)
[2018-12-08] MEDS: LEVOTHYROXINE 75 MCG TAB PO SCH ×2 (06:39→07:57)
[2018-12-08] MEDS: INSULIN ASPART 100 UNIT/ML 1 ML 10 ML VIAL SQ SCH ×5 (06:45→21:20)
[2018-12-08 06:52] LABS: T4, Free (Free Thyroxine) 1.31 ng/dL (0.78-2.19)
--- NOTE | 2018-12-08 07:11 | XR ---
EXAMINATION TYPE: XR chest 1V DATE OF EXAM: 12/08/2018 HISTORY: Fluid overload/ ICU management. REFERENCE: Previous study dated 12/07/2018. FINDINGS: Lung volumes are prominent. There is continuing interstitial change. Heart size is within n ormal limits. No definite vascular congestion is seen. Pleural spaces are clear. IMPRESSION: 1. PLEASE CORRELATE FOR COPD. 2. CONTINUING INTERSTITIAL CHANGE, IMPROVED FROM PREVIOUS IS NOT CLASSIC FOR PULMONARY EDEMA. ATYPICA L PNEUMONIA WOULD NEED TO BE CONSIDERED.
[2018-12-08 07:29] LABS: Prothrombin Time 10.9 sec (9.0-12.0)
[2018-12-08] MEDS: ATORVASTATIN 40 MG TAB PO SCH (07:48)
[2018-12-08] MEDS: METOPROLOL SUCCINATE (ER) 25 MG TAB.ER.24H PO SCH (07:49)
[2018-12-08] MEDS: PANTOPRAZOLE 40 MG/10 ML VIAL IV SCH (07:50)
[2018-12-08] MEDS: MUPIROCIN 2% OINT 22 GM TUBE TOPICAL SCH ×2 (07:50→21:58)
[2018-12-08 08:17] LABS: Partial Thromboplastin Time 117.9 sec (22.0-30.0)
--- NOTE | 2018-12-08 09:06 | P.GSCN ---
History of Present Illness Consult date: 12/08/18 Reason for Consult: Coronary artery disease, recommendations for bypass surgery Requesting physician: Petros Thompson History of present illness: This is a 68-year-old gentleman who follows with Dr. Cerda on an outpatient basis. He has a previous medical history of hypertension, hyperlipidemia, insulin-dependent diabetes mellitus with current hemoglobin A1c 6.6%, hypothyroid, bipolar/PTSD by history although patient denies this, syncope in September 2017 with demonstration of old right lacunar infarct on brain CT, right internal carotid artery stenosis 50-69% per carotid duplex, current tobacco dependence as a half pack per day off and on for many years, and right hip surgery. He presented to [facility] emergency room after approximately 1 week of progressive shortness of breath. He also complained of dry cough but denied any pain, fever, sick contacts, or any other symptoms. He was found to be hypoxic and was placed on BiPAP. He also was hypertensive with his initial blood pressures 199/107 in 203/93. Troponins were elevated and he was admitted to the intensive care unit with diagnosis of non-STEMI, acute decompensated systolic heart failure, and hypertensive emergency. With initiation of IV diuretics he was able to be weaned off BiPAP. Transesophageal echocardiogram was completed demonstrating impaired ventricular function with an EF 30-35%, hypokinetic apical anterior, lateral, inferior, and septal LV wall motion, and mild mitral regurgitation. Of note he had a transthoracic echocardiogram in September 2017 demonstrating normal LV function with an EF 55- 60% and mild mitral regurgitation. He was recommended to undergo heart catheterization, Dr. Thompson performed heart catheterization yesterday which demonstrated 2 vessel heavily calcified coronary artery disease, a dominant circumflex artery with 70-80% stenosis in the PDA and PLV branches, ostial OM 2 stenosis 70-80%, and a 95% focal lesion in the mid LAD. Due to these findings Dr. Lucas from cardiothoracic surgery was consulted regarding surgical revascularization. Review of Systems Review of systems was completed and was negative except as noted. - Cardiovascular Cardiovascular Comment(s): Denies any chest pain or pressure Reports as per HPI, Reports shortness of breath - Respiratory Reports as per HPI, Reports cough, Reports dyspnea Past Medical History Past Medical History: Coronary Artery Disease (CAD), Heart Failure, CVA/TIA, Diabetes Mellitus, Hyperlipidemia, Hypertension, Myocardial Infarction ([place]), Syncope, Thyroid Disorder Additional Past Medical History / Comment(s): CT of the brain in September 2017 demonstrated old right lacunar infarct History of Any Multi-Drug Resistant Organisms: None Reported Past Surgical History: Orthopedic Surgery Additional Past Surgical History / Comment(s): right hip, Past Anesthesia/Blood Transfusion Reactions: No Reported Reaction Past Psychological History: Bipolar, PTSD Smoking Status: Current every day smoker Past Alcohol Use History: None Reported Past Drug Use History: None Reported Medications and Allergies Home Medications Medication Instructions Recorded Confirmed Type Loratadine [Claritin] 10 mg PO DAILY 12/15/15 12/06/18 History fluvoxaMINE [Luvox] 50 mg PO DAILY 10/13/17 12/06/18 History Lisinopril [Zestril] 5 mg PO DAILY #0 10/14/17 12/06/18 Rx Insulin Degludec [Tresiba 25 unit SQ HS 12/06/18 12/06/18 History Flextouch U-100] Insulin Lispro [Admelog] See Protocol SQ AC-TID 12/06/18 12/06/18 History Levothyroxine Sodium [Synthroid] 75 mcg PO DAILY 12/06/18 12/06/18 History Allergies Allergy/AdvReac Type Severity Reaction Status Date / Time No Known Allergies Allergy Verified 12/06/18 21:41 Surgical - Exam Vital Signs Temp Pulse Resp BP Pulse Ox 98.0 F 128 H 38 H 199/107 68 L 12/06/18 21:12 12/06/18 21:12 12/06/18 21:12 12/06/18 21:12 12/06/18 21:12 - General well developed, well nourished, no distress, no pain - Eyes PERRL, normal ocular movement - ENT no hearing loss - Neck no masses, no bruits, trachea midline - Respiratory Lungs sounds diminished bilaterally. Respirations even, nonlabored. Currently on 3 L nasal cannula with oxygen saturation 96%. Strong nonproductive cough. No chest wall deformities. - Cardiovascular S1, S2 present. Regular rate and rhythm, sinus rhythm on telemetry. Palpable peripheral pulses bilaterally. No edema present. No calf pain or tenderness noted. No varicosities noted. Positive Jose C's test on the right, negative Jose C's test on the left. - Abdomen Abdomen: soft, non tender, bowel sounds - Genitourinary Patient has Tripp catheter in place with 50 mL/h urine output overnight. - Rectum Deferred - Integumentary Right femoral heart catheterization site soft, nontender. no rash, no growths, no abnormal pigmentation - Neurologic normal coordination, normal sensation - Musculoskeletal Equal strength bilaterally. - Psychiatric oriented to time, oriented to person, oriented to place, speech is normal Results - Labs 12/08/18 04:11 12/08/18 04:11 Abnormal Lab Results - Last 24 Hours (Table) 12/07/18 12/07/18 12/07/18 Range/Units 05:03 11:56 12:15 RBC (4.30-5.90) m/uL Hgb (13.0-17.5) gm/dL Hct (39.0-53.0) % Lymphocytes # (1.0-4.8) k/uL APTT (22.0-30.0) sec Sodium (137-145) mmol/L BUN (9-20) mg/dL Glucose (74-99) mg/dL POC Glucose (mg/dL) 249 H (75-99) mg/dL Hemoglobin A1c 6.6 H (4.0-6.0) % Calcium (8.4-10.2) mg/dL Troponin I 4.940 H* (0.000-0.034) ng/mL Total Protein (6.3-8.2) g/dL Albumin (3.5-5.0) g/dL HDL Cholesterol (40-60) mg/dL TSH (0.465-4.680) mIU/L 12/07/18 12/07/18 12/08/18 Range/Units 17:15 20:17 00:51 RBC (4.30-5.90) m/uL Hgb (13.0-17.5) gm/dL Hct (39.0-53.0) % Lymphocytes # (1.0-4.8) k/uL APTT 39.7 H (22.0-30.0) sec Sodium (137-145) mmol/L BUN (9-20) mg/dL Glucose (74-99) mg/dL POC Glucose (mg/dL) 194 H 290 H (75-99) mg/dL Hemoglobin A1c (4.0-6.0) % Calcium (8.4-10.2) mg/dL Troponin I (0.000-0.034) ng/mL Total Protein (6.3-8.2) g/dL Albumin (3.5-5.0) g/dL HDL Cholesterol (40-60) mg/dL TSH (0.465-4.680) mIU/L 12/08/18 12/08/18 12/08/18 Range/Units 04:11 04:11 04:11 RBC 3.15 L (4.30-5.90) m/uL Hgb 10.2 L (13.0-17.5) gm/dL Hct 28.9 L (39.0-53.0) % Lymphocytes # 0.6 L (1.0-4.8) k/uL APTT (22.0-30.0) sec Sodium 135 L (137-145) mmol/L BUN 48 H (9-20) mg/dL Glucose 296 H (74-99) mg/dL POC Glucose (mg/dL) (75-99) mg/dL Hemoglobin A1c (4.0-6.0) % Calcium 7.9 L (8.4-10.2) mg/dL Troponin I 2.850 H* (0.000-0.034) ng/mL Total Protein 5.8 L (6.3-8.2) g/dL Albumin 3.0 L (3.5-5.0) g/dL HDL Cholesterol 34 L (40-60) mg/dL TSH 5.610 H (0.465-4.680) mIU/L 12/08/18 12/08/18 Range/Units 06:35 06:44 RBC (4.30-5.90) m/uL Hgb (13.0-17.5) gm/dL Hct (39.0-53.0) % Lymphocytes # (1.0-4.8) k/uL APTT 117.9 H* (22.0-30.0) sec Sodium (137-145) mmol/L BUN (9-20) mg/dL Glucose (74-99) mg/dL POC Glucose (mg/dL) 292 H (75-99) mg/dL Hemoglobin A1c (4.0-6.0) % Calcium (8.4-10.2) mg/dL Troponin I (0.000-0.034) ng/mL Total Protein (6.3-8.2) g/dL Albumin (3.5-5.0) g/dL HDL Cholesterol (40-60) mg/dL TSH (0.465-4.680) mIU/L Microbiology - Last 24 Hours (Table) 12/07/18 Unknown Urine Culture - Preliminary Urine,Catheterized 12/07/18 Unknown Nasal Screen MRSA/MSSA - Preliminary Nasopharyngeal Swab Diabetes panel 12/07/18 12/08/18 Range/Units 05:03 04:11 Sodium 135 L (137-145) mmol/L Potassium 5.1 (3.5-5.1) mmol/L Chloride 105 (98-107) mmol/L Carbon Dioxide 24 (22-30) mmol/L BUN 48 H (9-20) mg/dL Creatinine 1.25 (0.66-1.25) mg/dL Glucose 296 H (74-99) mg/dL Hemoglobin A1c 6.6 H (4.0-6.0) % Calcium 7.9 L (8.4-10.2) mg/dL AST 49 (17-59) U/L ALT 49 (21-72) U/L Alkaline Phosphatase 40 (38-126) U/L Total Protein 5.8 L (6.3-8.2) g/dL Albumin 3.0 L (3.5-5.0) g/dL Triglycerides 73 (<150) mg/dL HDL Cholesterol 34 L (40-60) mg/dL Thyroid panel 12/08/18 Range/Units 04:11 TSH 5.610 H (0.465-4.680) mIU/L Calcium panel 12/08/18 Range/Units 04:11 Calcium 7.9 L (8.4-10.2) mg/dL Albumin 3.0 L (3.5-5.0) g/dL Pituitary panel 12/08/18 Range/Units 04:11 Sodium 135 L (137-145) mmol/L Potassium 5.1 (3.5-5.1) mmol/L Chloride 105 (98-107) mmol/L Carbon Dioxide 24 (22-30) mmol/L BUN 48 H (9-20) mg/dL Creatinine 1.25 (0.66-1.25) mg/dL Glucose 296 H (74-99) mg/dL Calcium 7.9 L (8.4-10.2) mg/dL TSH 5.610 H (0.465-4.680) mIU/L Adrenal panel 12/08/18 Range/Units 04:11 Sodium 135 L (137-145) mmol/L Potassium 5.1 (3.5-5.1) mmol/L Chloride 105 (98-107) mmol/L Carbon Dioxide 24 (22-30) mmol/L BUN 48 H (9-20) mg/dL Creatinine 1.25 (0.66-1.25) mg/dL Glucose 296 H (74-99) mg/dL Calcium 7.9 L (8.4-10.2) mg/dL Total Bilirubin 0.5 (0.2-1.3) mg/dL AST 49 (17-59) U/L ALT 49 (21-72) U/L Alkaline Phosphatase 40 (38-126) U/L Total Protein 5.8 L (6.3-8.2) g/dL Albumin 3.0 L (3.5-5.0) g/dL - Imaging Chest x-ray: report reviewed, image reviewed EKG: image reviewed Additional studies: Cardiac catheterization films, echocardiogram films, carotid Dopplers reviewed. Assessment and Plan (1) Non-STEMI (non-ST elevated myocardial infarction) Current Visit: Yes Status: Acute Code(s): I21.4 - NON-ST ELEVATION (NSTEMI) MYOCARDIAL INFARCTION SNOMED Code(s): 83490467 (2) Acute systolic heart failure Current Visit: Yes Status: Acute Code(s): I50.21 - ACUTE SYSTOLIC ( CONGESTIVE) HEART FAILURE SNOMED Code(s): 932486537 (3) Hyperlipidemia associated with type 2 diabetes mellitus Current Visit: Yes Status: Chronic Code(s): E11.69 - TYPE 2 DIABETES MELLITUS WITH OTHER SPECIFIED COMPLICATION; E78.5 - HYPERLIPIDEMIA, UNSPECIFIED SNOMED Code(s): 554280696205 (4) Tobacco dependence Current Visit: Yes Status: Chronic Code(s): F17.200 - NICOTINE DEPENDENCE, UNSPECIFIED, UNCOMPLICATED SNOMED Code(s): 07693747 (5) History of syncope Current Visit: No Status: Resolved Code(s): Z87.898 - PERSONAL HISTORY OF OTHER SPECIFIED CONDITIONS SNOMED Code(s): 651315247253419 (6) Stenosis of right carotid artery greater than 50% Current Visit: Yes Status: Chronic Code(s): I65.21 - OCCLUSION AND STENOSIS OF RIGHT CAROTID ARTERY SNOMED Code(s): 514139493839982 (7) Acute respiratory failure with hypoxia Current Visit: Yes Status: Acute Code(s): J96.01 - ACUTE RESPIRATORY FAILURE WITH HYPOXIA SNOMED Code(s): 44732169 (8) Hypertension Current Visit: Yes Status: Chronic Code(s): I10 - ESSENTIAL (PRIMARY) HYPERTENSION SNOMED Code(s): 84611448 (9) Hypertensive emergency Current Visit: Yes Status: Acute Code(s): I16.1 - HYPERTENSIVE EMERGENCY SNOMED Code(s): 331835300989979 (10) Diabetes mellitus type 2, uncontrolled Current Visit: Yes Status: Chronic Code(s): E11.65 - TYPE 2 DIABETES MELLITUS WITH HYPERGLYCEMIA SNOMED Code(s): 16415787 (11) Hypoactive thyroid Current Visit: Yes Status: Chronic Code(s): E03.9 - HYPOTHYROIDISM, UNSPECIFIED SNOMED Code(s): 37840724 (12) Bipolar disorder Current Visit: Yes Status: Chronic Code(s): F31.9 - BIPOLAR DISORDER, UNSPECIFIED SNOMED Code(s): 91008688 Plan: The patient was seen and examined at the bedside in the intensive care unit. Chart/diagnostics were reviewed. The case was discussed with Dr. Lucas who will be here today to see the patient. Preoperative teaching was initiated, the usual perioperative course was discussed in detail with the patient, risks and benefits were reviewed, all questions were answered. Preoperative testing was initiated and reviewed. We recommend maximizing medical therapy with aspirin, statin, beta sergio therapy. Continue diuresis. STS risk score calculated, to be discussed with the patient by Dr. Lucas. Continued medical management per primary care and zoning technician. Continued cardiology management per Dr. Thompson. More recommendations to follow regarding surgical revascularization, including timing of surgery. Thank you Dr. Thompson for this consult. We look forward to working with you in the care of your patient. Time with Patient: Greater than 30
--- NOTE | 2018-12-08 09:34 | PN ---
PROGRESS NOTE DATE OF SERVICE: 12/08/2018. This is a very pleasant 68-year-old male who we saw in consultation yesterday. He came into the hospital with shortness of breath. It had been going on for about a week or so. The chest x-ray was consistent with fluid overload. He had a very elevated N terminal proBNP. It was actually about 7600. In addition, he had elevated cardiac enzymes. We were concerned about a non ST-segment elevation myocardial infarction. Initially, he was on BiPAP with settings of 14/5 and 50%. We were able to wean him down to nasal prongs at 4 L. Currently, his heparin is on hold. He is on a 0.9 at KVO. He had a heart catheterization done by Dr. Thompson yesterday. It showed significant 3 vessel disease including a 70 to 80% obstruction in the circumflex coronary artery, 70 to 80% obstruction of the obtuse marginal coronary artery and a 95% obstruction in his LAD. The patient is currently being evaluated for possible bypass grafting. He does have a history of hypertension, diabetes, hypothyroidism, and previous heavy tobacco use. He has been smoking for about 60 years. He smoked up until the time of his admission to the hospital. Current vital signs are reviewed. Temperature 98. Heart rate 77, respiratory rate 24, blood pressure 117/61, mean 79 and saturation 96%. That was on 4 L. Appears in no acute distress. Lying flat in bed. HEENT examination is grossly unremarkable. Mucous membranes are moist. Nasal O2 noted. Neck is supple. Full range of motion. No adenopathy or thyromegaly. Cardiovascular examination reveals regular rhythm and rate. Heart rate in mid 70s. S1, S2 normal. No distinct murmur noted. Lungs reveal coarse rhonchi. Some bilateral crackles. Breath sounds are equal bilaterally. The chest is very noisy and in part obscures cardiac sounds. Abdomen is soft. Bowel sounds are heard. Extremities are intact. Minimal to no edema. Skin without rash. Brief neurologic examination is nonfocal. LABORATORY DATA: White count 8, hemoglobin 10.2, hematocrit 28.9, platelet count 333,000. PT/INR normal. PTT is 117.9. Sodium 135, potassium 5.1, chloride 105, CO2 24, anion gap is normal. BUN and creatinine were 48 and 1.25. His last troponin was 2.850. TSH is elevated at 5.610 and his thyroid hormone was restarted. Chest x-ray shows a pattern of diffuse bilateral infiltrates consistent with fluid overload. These are interstitial changes primarily suggesting interstitial edema, but his chest x-ray is actually improved over the ones done on December 06. Medications are reviewed. ASSESSMENT: 1. Probable non ST-segment elevation myocardial infarction. 2. Severe three-vessel coronary artery disease, the patient currently being evaluated with bypass grafting. The patient has a 70-80 percent occlusion of his circumflex coronary artery, a 70 to 80% occlusion of the obtuse marginal coronary artery and a 95% occlusion of the LAD. 3. Hypoxemic respiratory failure secondary to significant pulmonary edema. 4. History of environmental allergies. 5. Diabetes mellitus. 6. Hypertension. 7. Hypothyroidism. 8. Possible underlying chronic obstructive pulmonary disease, as the patient has smoked for 60 years. A bedside spirometry should be done. PLAN: Plan dated 12/08/2018. The patient is currently being evaluated for possible bypass grafting. A bedside spirometry should be done. The patient will be evaluated by cardiothoracic surgery. Prognosis is guarded. Additional recommendations and suggestions are forthcoming. We will continue to follow. MMODL / IJN: [id number] /
[2018-12-08] MEDS: FUROSEMIDE 10 MG/ML 4 ML VIAL IV SCH ×2 (10:56→21:18)
[2018-12-08] MEDS: LISINOPRIL 2.5 MG TAB PO SCH (10:56)
[2018-12-08] MEDS ORDERED: IPRATROPIUM-ALBUTEROL 3 ML NEB INHALATION PRN (12:08)
[2018-12-08] MEDS: HEPARIN SOD,PORK IN 0.45% NACL 25,000 UNIT in 0.45% NACL 1 250ML.BAG IV SCH (12:13)
[2018-12-08 12:14] LABS: Glucose,Whole Blood 235 mg/dL (75-99)
--- NOTE | 2018-12-08 12:31 | PN ---
PROGRESS NOTE Philippe is a 68-year-old gentleman who was admitted to hospital with acute pulmonary edema secondary to acute myocardial infarction in LAD distribution. His echocardiogram showed extensive hypokinesis involving the LAD distribution with an ejection fraction of 635%. There is mild mitral regurgitation noted. Patient underwent cardiac catheterization that revealed severe 2-vessel coronary artery disease. The surgeon has been consulted for bypass surgery. The patient is doing well and denies chest pain or difficulty in breathing. CURRENT MEDICATIONS: Include Lipitor, Zestril 2.5 mg daily, Toprol-XL 12.5 mg daily, Synthroid and insulin. EXAM: At rest heart rate is 80 beats, blood pressure is 137/56, respiratory rate is 18. Chest exam reveals bilateral rhonchi. Heart exam reveals first and second heart sounds. No gallop. Abdomen is soft. Exam of extremities did not reveal any edema. Peripheral pulses are felt. Groin is free of bleeding, bruit or hematoma. ASSESSMENT: 1. Acute anterior wall myocardial infarction. 2. Ischemic cardiomyopathy with severe LV dysfunction. 3. Acute pulmonary edema. PLAN: Patient is looking better clinically. We will start him on IV Lasix. Continue the JOSE M inhibitors and beta blockers. We will go up on the dose of Toprol to 25 mg daily and blood pressure tolerating, we can increase the dose of lisinopril to 5 and subsequently to 10 mg daily. The patient will undergo bypass surgery on this admission. MMODL / IJN: [id number] /
--- NOTE | 2018-12-08 12:50 | P.PN ---
Subjective 68-year-old admitted secondary to non-ST elevation myocardial infarction acute congestive heart failure secondary to myocardial infarction patient underwent cardiac catheterization found to have two-vessel disease including LAD disease because of which cardiology is recommending coronary artery bypass grafting carotid thoracic surgery was consulted and they're planning on doing CABG and Sunday. Patient still has volume overload patient will be started on 40 IV twice a day of Lasix. Patient is still bit shot of breath requiring 4 L of oxygen via does have some wheezing on exam may be cardiac asthma but it if his oxygen requirements doesn't come down will start him on albuterol and Symbicort at that time. Constitutional: Denied any fatigue denied any fever. Cardio vascular: denied any chest pain, palpitations Gastrointestinal denied any nausea vomiting Pulmonary: As mentioned in the interval history Neurologic denied any new focal deficits All inpatient medications were reviewed and appropriate changes in these medications as dictated in the interval history and assessment and plan. Objective - Vital Signs Vital signs: Vital Signs Temp 99.6 F 12/08/18 12:00 Pulse 93 12/08/18 12:00 Resp 16 12/08/18 12:00 BP 138/73 12/08/18 12:00 Pulse Ox 93 L 12/08/18 12:00 Intake & Output 12/07/18 12/08/18 12/08/18 18:59 06:59 18:59 Intake Total 333 91.561 134.112 Output Total 1955 575 655 Balance -1622 -483.439 -520.888 Weight 94.6 kg 92.4 kg Intake: IV 100 Intake, IV Titration 233 91.561 134.112 Amount Heparin Sod,Pork in 0.45% 13 91.561 134.112 NaCl 25,000 unit In 0.45 % NaCl 1 250ml.bag @ 13 UNITS/KG/HR 12.29 mls/hr IV .[id number] [facility] Rx#: [id number] IV Fluid Continuation 750 220 ml @ 0 mls/hr IV .STK- [facility] Rx#:[id number] Output: Urine 5 575 655 Other: Voiding Method Indwelling Catheter Indwelling Catheter Indwelling Catheter - Exam PHYSICAL EXAMINATION: GENERAL: The patient is alert and oriented x3, not in any acute distress. Well developed, well nourished. HEENT: Pupils are round and equally reacting to light. EOMI. No scleral icterus. No conjunctival pallor. Normocephalic, atraumatic. No pharyngeal erythema. No thyromegaly. CARDIOVASCULAR: S1 and S2 present. No murmurs, rubs, or gallops. PULMONARY: Extensive by bilateral crackles with the some expiratory wheezing on exam ABDOMEN: Soft, nontender, nondistended, normoactive bowel sounds. No palpable organomegaly. MUSCULOSKELETAL: No joint swelling or deformity. EXTREMITIES: No cyanosis, clubbing, or pedal edema. NEUROLOGICAL: Gross neurological examination did not reveal any focal deficits. SKIN: No rashes. - Labs CBC & Chem 7: 12/08/18 04:11 12/08/18 04:11 Labs: Abnormal Lab Results - Last 24 Hours (Table) 12/07/18 12/07/18 12/07/18 Range/Units 05:03 12:15 17:15 RBC (4.30-5.90) m/uL Hgb (13.0-17.5) gm/dL Hct (39.0-53.0) % Lymphocytes # (1.0-4.8) k/uL APTT (22.0-30.0) sec Sodium (137-145) mmol/L BUN (9-20) mg/dL Glucose (74-99) mg/dL POC Glucose (mg/dL) 194 H (75-99) mg/dL Hemoglobin A1c 6.6 H (4.0-6.0) % Calcium (8.4-10.2) mg/dL Troponin I 4.940 H* (0.000-0.034) ng/mL Total Protein (6.3-8.2) g/dL Albumin (3.5-5.0) g/dL HDL Cholesterol (40-60) mg/dL TSH (0.465-4.680) mIU/L 12/07/18 12/08/18 12/08/18 Range/Units 20:17 00:51 04:11 RBC 3.15 L (4.30-5.90) m/uL Hgb 10.2 L (13.0-17.5) gm/dL Hct 28.9 L (39.0-53.0) % Lymphocytes # 0.6 L (1.0-4.8) k/uL APTT 39.7 H (22.0-30.0) sec Sodium (137-145) mmol/L BUN (9-20) mg/dL Glucose (74-99) mg/dL POC Glucose (mg/dL) 290 H (75-99) mg/dL Hemoglobin A1c (4.0-6.0) % Calcium (8.4-10.2) mg/dL Troponin I (0.000-0.034) ng/mL Total Protein (6.3-8.2) g/dL Albumin (3.5-5.0) g/dL HDL Cholesterol (40-60) mg/dL TSH (0.465-4.680) mIU/L 12/08/18 12/08/18 12/08/18 Range/Units 04:11 04:11 06:35 RBC (4.30-5.90) m/uL Hgb (13.0-17.5) gm/dL Hct (39.0-53.0) % Lymphocytes # (1.0-4.8) k/uL APTT (22.0-30.0) sec Sodium 135 L (137-145) mmol/L BUN 48 H (9-20) mg/dL Glucose 296 H (74-99) mg/dL POC Glucose (mg/dL) 292 H (75-99) mg/dL Hemoglobin A1c (4.0-6.0) % Calcium 7.9 L (8.4-10.2) mg/dL Troponin I 2.850 H* (0.000-0.034) ng/mL Total Protein 5.8 L (6.3-8.2) g/dL Albumin 3.0 L (3.5-5.0) g/dL HDL Cholesterol 34 L (40-60) mg/dL TSH 5.610 H (0.465-4.680) mIU/L 12/08/18 12/08/18 Range/Units 06:44 11:58 RBC (4.30-5.90) m/uL Hgb (13.0-17.5) gm/dL Hct (39.0-53.0) % Lymphocytes # (1.0-4.8) k/uL APTT 117.9 H* (22.0-30.0) sec Sodium (137-145) mmol/L BUN (9-20) mg/dL Glucose (74-99) mg/dL POC Glucose (mg/dL) 235 H (75-99) mg/dL Hemoglobin A1c (4.0-6.0) % Calcium (8.4-10.2) mg/dL Troponin I (0.000-0.034) ng/mL Total Protein (6.3-8.2) g/dL Albumin (3.5-5.0) g/dL HDL Cholesterol (40-60) mg/dL TSH (0.465-4.680) mIU/L Microbiology - Last 24 Hours (Table) 12/07/18 Unknown Urine Culture - Preliminary Urine,Catheterized 12/07/18 Unknown Nasal Screen MRSA/MSSA - Preliminary Nasopharyngeal Swab Assessment and Plan Plan: Acute non-ST elevation myocardial infarction: Probably secondary to acute systolic dysfunction from acute myocardial infarction non-ST elevation a cardiac infarction patient is found to have two-vessel disease including significant disease in LAD was evaluated for coronary artery bypass grafting and patient will undergo CABG and Sunday as mentioned above -Congestive heart failure appears to be acute systolic dysfunction for acute from acute myocardial infarction patient will be started on IV Lasix as mentioned about twice a day repeat basic metabolic profile tomorrow -Acute renal failure secondary to heart failure prerenal azotemia from heart failure further management as mentioned above -Possible chronic kidney disease from diabetic nephropathy Heparin type 2 diabetes mellitus continue sliding scale for now -Hyperlipidemia -Hypertension -Hypo-thyroidism -PTSD and bipolar disorder -Patient will continued on present medications close clinical monitoring basic metabolic profile tomorrow.
[2018-12-08] MEDS: IPRATROPIUM-ALBUTEROL 3 ML NEB INHALATION SCH ×2 (15:25→19:23)
[2018-12-08 16:50] LABS: Glucose,Whole Blood 286 mg/dL (75-99)
[2018-12-08] MEDS: methylPREDNISolone SOD SUCCI 125 MG/2 ML VIAL IV SCH ×2 (17:29→23:50)
[2018-12-08] MEDS: FORMOTEROL FUMARATE 20 MCG/2 ML NEBU INHALATION SCH (19:23)
[2018-12-08] MEDS: BUDESONIDE 1 MG/2 ML NEBU INHALATION SCH (19:23)
[2018-12-08 20:50] LABS: Glucose,Whole Blood 374 mg/dL (75-99)
[2018-12-08 20:50] LABS: Glucose,Whole Blood 376 mg/dL (75-99)
[2018-12-08] MEDS ORDERED: FUROSEMIDE 10 MG/ML 4 ML VIAL IV SCH (21:00)
[2018-12-08 23:57] LABS: Glucose,Whole Blood 332 mg/dL (75-99)
[2018-12-09] MEDS: INSULIN REGULAR 100 UNIT in SODIUM CHLORIDE 0.9% 100 ML IV SCH ×2 (00:54→12:48)
[2018-12-09 01:02] LABS: Glucose,Whole Blood 311 mg/dL (75-99)
[2018-12-09 01:13] LABS: Glucose,Whole Blood 314 mg/dL (75-99)
[2018-12-09 01:57] LABS: Glucose,Whole Blood 222 mg/dL (75-99)
[2018-12-09 02:58] LABS: Glucose,Whole Blood 128 mg/dL (75-99)
[2018-12-09 03:33] LABS: Glucose,Whole Blood 105 mg/dL (75-99)
[2018-12-09 04:18] LABS: Glucose,Whole Blood 84 mg/dL (75-99)
[2018-12-09 05:10] LABS: Basophils % (A) 0 %; Eosinophils % (A) 0 %; HCT 30.4 % (39.0-53.0); HGB 10.2 gm/dL (13.0-17.5); Lymphocytes # (A) 0.4 k/uL (1.0-4.8); Lymphocytes % (A) 5 %; MCH 30.4 pg (25.0-35.0); MCHC 33.6 g/dL (31.0-37.0); MCV 90.5 fL (80.0-100.0); Mean Platelet Volume 7.2; Monocytes # (A) 0.2 k/uL (0-1.0); Monocytes % (A) 3 %; Neutrophils # (A) 7.5 k/uL (1.3-7.7); Neutrophils % (A) 91 %; Platelet Count 347 k/uL (150-450); RBC 3.36 m/uL (4.30-5.90); RDW 12.7 % (11.5-15.5); WBC 8.3 k/uL (3.8-10.6)
[2018-12-09 05:26] LABS: Prothrombin Time 10.9 sec (9.0-12.0)
[2018-12-09 05:29] LABS: Glucose,Whole Blood 131 mg/dL (75-99)
[2018-12-09 05:38] LABS: Partial Thromboplastin Time 117.7 sec (22.0-30.0)
[2018-12-09 05:54] LABS: Calcium 8.1 mg/dL (8.4-10.2); Magnesium 2.3 mg/dL (1.6-2.3); Phosphorus 3.9 mg/dL (2.5-4.5); Potassium 4.5 mmol/L (3.5-5.1)
[2018-12-09 06:05] LABS: Glucose,Whole Blood 161 mg/dL (75-99)
[2018-12-09] MEDS: methylPREDNISolone SOD SUCCI 125 MG/2 ML VIAL IV SCH ×4 (06:09→23:43)
[2018-12-09] MEDS: LEVOTHYROXINE 75 MCG TAB PO SCH (06:12)
[2018-12-09 06:58] LABS: Glucose,Whole Blood 160 mg/dL (75-99)
[2018-12-09] MEDS: IPRATROPIUM-ALBUTEROL 3 ML NEB INHALATION SCH ×4 (07:25→19:25)
[2018-12-09] MEDS: BUDESONIDE 1 MG/2 ML NEBU INHALATION SCH ×2 (07:25→19:25)
[2018-12-09] MEDS: FORMOTEROL FUMARATE 20 MCG/2 ML NEBU INHALATION SCH ×2 (07:25→19:25)
--- NOTE | 2018-12-09 08:07 | P.PN ---
Subjective Progress Note Date: 12/09/18 Principal diagnosis: Coronary artery disease, non-STEMI, acute decompensated systolic heart failure. Previous medical history of hypertension, hyperlipidemia, insulin-dependent diabetes mellitus with current hemoglobin A1c 6.6%, hypothyroid, bipolar/PTSD, syncope in September 2017 with demonstration of old right lacunar infarct on brain CT, right internal carotid artery stenosis 50-69%, current tobacco dependence, and right hip surgery. The patient is currently laying in bed in no acute distress the intensive care unit. He denies any chest pain or shortness of breath. He does continue to complain of coughing with deep breathing, and has been unable to complete pulmonary function test. Pulmonology is on board and initiated IV as well as inhaled steroids. Currently on IV heparin. Objective - Vital Signs Vital signs: Vital Signs Temp 98.4 F 12/09/18 04:00 Pulse 72 12/09/18 07:38 Resp 20 12/09/18 07:00 BP 118/65 12/09/18 07:00 Pulse Ox 97 12/09/18 07:00 Intake & Output 12/08/18 12/09/18 12/09/18 18:59 06:59 18:59 Intake Total 188.598 413.290 Output Total 1965 1360 Balance -1776.402 -946.710 Weight 91 kg Intake: IV 220 0.9 KVO 220 Intake, IV Titration 188.598 193.290 Amount Heparin Sod,Pork in 0.45% 188.598 162.757 NaCl 25,000 unit In 0.45 % NaCl 1 250ml.bag @ 13 UNITS/KG/HR 12.29 mls/hr IV .[id number] [facility] Rx#: [id number] Insulin Regular 100 unit 30.533 In Sodium Chloride 0.9% 100 ml @ Per Protocol IV .Q0M [facility] Rx#:[id number] Output: Urine 1964 1360 Other: Voiding Method Indwelling Catheter Indwelling Catheter - Constitutional General appearance: Present: cooperative, no acute distress - Respiratory Details: Lungs sounds diminished bilaterally with coarse breath sounds in the bases. Respirations even, nonlabored. Currently on 4 L nasal cannula with oxygen saturation 97%. Able to achieve 1000 mL on his incentive spirometry. Strong cough. - Cardiovascular Details: S1, S2 present. Regular rate and rhythm, sinus rhythm on telemetry. Palpable peripheral pulses bilaterally. No edema present. No calf pain or tenderness noted. SCDs present. - Gastrointestinal Gastrointestinal Comment(s): Abdomen soft, nontender, nondistended. Active bowel sounds 4 quadrants. Tolerating diet. - Genitourinary Genitourinary Comment(s): Tripp present draining clear, yellow urine. Output 50-350 mL per hour overnight , 1075 mL in the last 8 hours. - Integumentary Integumentary Comment(s): Skin is warm and dry with evidence of good perfusion. - Neurologic Neurologic: Present: CNII-XII intact - Musculoskeletal Musculoskeletal: Present: strength equal bilaterally - Psychiatric Psychiatric: Present: A&O x's 3, appropriate affect, intact judgment & insight - Allied health notes Allied health notes reviewed: nursing - Labs CBC & Chem 7: 12/09/18 04:34 12/09/18 04:34 Labs: Abnormal Lab Results - Last 24 Hours (Table) 12/08/18 12/08/18 12/08/18 Range/Units 06:44 11:58 15:35 RBC (4.30-5.90) m/uL Hgb (13.0-17.5) gm/dL Hct (39.0-53.0) % Lymphocytes # (1.0-4.8) k/uL APTT 117.9 H* 39.0 H (22.0-30.0) sec Sodium (137-145) mmol/L BUN (9-20) mg/dL POC Glucose (mg/dL) 235 H (75-99) mg/dL Calcium (8.4-10.2) mg/dL 12/08/18 12/08/18 12/08/18 Range/Units 16:47 20:46 20:47 RBC (4.30-5.90) m/uL Hgb (13.0-17.5) gm/dL Hct (39.0-53.0) % Lymphocytes # (1.0-4.8) k/uL APTT (22.0-30.0) sec Sodium (137-145) mmol/L BUN (9-20) mg/dL POC Glucose (mg/dL) 286 H 374 H 376 H (75-99) mg/dL Calcium (8.4-10.2) mg/dL 12/08/18 12/08/18 12/09/18 Range/Units 22:15 23:55 00:49 RBC (4.30-5.90) m/uL Hgb (13.0-17.5) gm/dL Hct (39.0-53.0) % Lymphocytes # (1.0-4.8) k/uL APTT 168.5 H* (22.0-30.0) sec Sodium (137-145) mmol/L BUN (9-20) mg/dL POC Glucose (mg/dL) 332 H 311 H (75-99) mg/dL Calcium (8.4-10.2) mg/dL 12/09/18 12/09/18 12/09/18 Range/Units 01:10 01:55 02:55 RBC (4.30-5.90) m/uL Hgb (13.0-17.5) gm/dL Hct (39.0-53.0) % Lymphocytes # (1.0-4.8) k/uL APTT (22.0-30.0) sec Sodium (137-145) mmol/L BUN (9-20) mg/dL POC Glucose (mg/dL) 314 H 222 H 128 H (75-99) mg/dL Calcium (8.4-10.2) mg/dL 12/09/18 12/09/18 12/09/18 Range/Units 03:29 04:34 04:34 RBC 3.36 L (4.30-5.90) m/uL Hgb 10.2 L (13.0-17.5) gm/dL Hct 30.4 L (39.0-53.0) % Lymphocytes # 0.4 L (1.0-4.8) k/uL APTT 117.7 H* (22.0-30.0) sec Sodium (137-145) mmol/L BUN (9-20) mg/dL POC Glucose (mg/dL) 105 H (75-99) mg/dL Calcium (8.4-10.2) mg/dL 12/09/18 12/09/18 12/09/18 Range/Units 04:34 05:27 06:01 RBC (4.30-5.90) m/uL Hgb (13.0-17.5) gm/dL Hct (39.0-53.0) % Lymphocytes # (1.0-4.8) k/uL APTT (22.0-30.0) sec Sodium 136 L (137-145) mmol/L BUN 43 H (9-20) mg/dL POC Glucose (mg/dL) 131 H 161 H (75-99) mg/dL Calcium 8.1 L (8.4-10.2) mg/dL 12/09/18 Range/Units 06:56 RBC (4.30-5.90) m/uL Hgb (13.0-17.5) gm/dL Hct (39.0-53.0) % Lymphocytes # (1.0-4.8) k/uL APTT (22.0-30.0) sec Sodium (137-145) mmol/L BUN (9-20) mg/dL POC Glucose (mg/dL) 160 H (75-99) mg/dL Calcium (8.4-10.2) mg/dL Microbiology - Last 24 Hours (Table) 12/07/18 Unknown Nasal Screen MRSA/MSSA - Final Nasopharyngeal Swab 12/07/18 Unknown Urine Culture - Final Urine,Catheterized Assessment and Plan (1) Non-STEMI (non-ST elevated myocardial infarction) Current Visit: Yes Status: Acute Code(s): I21.4 - NON-ST ELEVATION (NSTEMI) MYOCARDIAL INFARCTION SNOMED Code(s): 75506995 (2) Acute systolic heart failure Current Visit: Yes Status: Acute Code(s): I50.21 - ACUTE SYSTOLIC ( CONGESTIVE) HEART FAILURE SNOMED Code(s): 515901237 (3) Hyperlipidemia associated with type 2 diabetes mellitus Current Visit: Yes Status: Chronic Code(s): E11.69 - TYPE 2 DIABETES MELLITUS WITH OTHER SPECIFIED COMPLICATION; E78.5 - HYPERLIPIDEMIA, UNSPECIFIED SNOMED Code(s): 017729362403 (4) Tobacco dependence Current Visit: Yes Status: Chronic Code(s): F17.200 - NICOTINE DEPENDENCE, UNSPECIFIED, UNCOMPLICATED SNOMED Code(s): 85650304 (5) History of syncope Current Visit: No Status: Resolved Code(s): Z87.898 - PERSONAL HISTORY OF OTHER SPECIFIED CONDITIONS SNOMED Code(s): 482224527810977 (6) Stenosis of right carotid artery greater than 50% Current Visit: Yes Status: Chronic Code(s): I65.21 - OCCLUSION AND STENOSIS OF RIGHT CAROTID ARTERY SNOMED Code(s): 262253191277694 (7) Acute respiratory failure with hypoxia Current Visit: Yes Status: Acute Code(s): J96.01 - ACUTE RESPIRATORY FAILURE WITH HYPOXIA SNOMED Code(s): 90255696 (8) Hypertension Current Visit: Yes Status: Chronic Code(s): I10 - ESSENTIAL (PRIMARY) HYPERTENSION SNOMED Code(s): 60056640 (9) Hypertensive emergency Current Visit: Yes Status: Acute Code(s): I16.1 - HYPERTENSIVE EMERGENCY SNOMED Code(s): 635264402521281 (10) Diabetes mellitus type 2, uncontrolled Current Visit: Yes Status: Chronic Code(s): E11.65 - TYPE 2 DIABETES MELLITUS WITH HYPERGLYCEMIA SNOMED Code(s): 94858601 (11) Hypoactive thyroid Current Visit: Yes Status: Chronic Code(s): E03.9 - HYPOTHYROIDISM, UNSPECIFIED SNOMED Code(s): 31483773 (12) Bipolar disorder Current Visit: Yes Status: Chronic Code(s): F31.9 - BIPOLAR DISORDER, UNSPECIFIED SNOMED Code(s): 82296702 Plan: 1. Continue aspirin, statin, beta sergio, IV heparin. 2. Continue diuresis with IV Lasix. 3. Bronchodilators, steroids per pulmonology. 4. Encourage incentive spirometry use. 5. Increase activity as tolerated. Up to chair as able. Will perform 5 m walk test. 6. Pulmonary function test when able. 7. GI prophylaxis with Protonix, DVT prophylaxis with IV heparin, SCDs. 8. Continue to reinforce preoperative teaching. 9. Will plan for coronary artery bypass surgery 12/11/[address] Horn. 10. More recommendations to follow. Time with Patient: Greater than 30
[2018-12-09] MEDS: PANTOPRAZOLE 40 MG/10 ML VIAL IV SCH (08:20)
[2018-12-09] MEDS: ATORVASTATIN 40 MG TAB PO SCH (08:20)
[2018-12-09] MEDS: FUROSEMIDE 10 MG/ML 4 ML VIAL IV SCH ×2 (08:20→21:27)
[2018-12-09] MEDS: LISINOPRIL 2.5 MG TAB PO SCH (08:20)
[2018-12-09] MEDS: ASPIRIN 325 MG TAB PO SCH (08:20)
[2018-12-09] MEDS: METOPROLOL SUCCINATE (ER) 25 MG TAB.ER.24H PO SCH (08:21)
[2018-12-09] MEDS: MUPIROCIN 2% OINT 22 GM TUBE TOPICAL SCH ×2 (08:21→21:29)
[2018-12-09 08:22] LABS: Glucose,Whole Blood 143 mg/dL (75-99)
[2018-12-09 09:46] LABS: Glucose,Whole Blood 185 mg/dL (75-99)
[2018-12-09 09:55] LABS: Glucose,Whole Blood 218 mg/dL (75-99)
[2018-12-09 10:18] LABS: Hepatitis A Antibody IgM Non-Reactive (Non-Reactive); Hepatitis B Core IgM Non-Reactive (Non-Reactive)
[2018-12-09] MEDS ORDERED: FUROSEMIDE 10 MG/ML 4 ML VIAL IV SCH (10:32)
--- NOTE | 2018-12-09 10:32 | PN ---
PROGRESS NOTE Philippe is a 68-year-old gentleman who was admitted to hospital with extensive anterior wall myocardial infarction. Underwent cardiac catheterization and has severe 2 vessel coronary artery disease and will undergo bypass surgery on Sunday hopefully by Dr. Horn. The patient initially presented with acute pulmonary edema and complains of cough without any productive sputum. He is currently on heparin and heparin doses are being adjusted. He is on Toprol XL 12.5 mg daily, which is going to be increased to 25 daily. He is on lisinopril and blood pressure tolerating. We will increase the dose of lisinopril also, he is on Lasix 40 mg IV b.i.d., which I am going to continue at this time. PHYSICAL EXAMINATION: On exam, afebrile, heart rate is 80 beats per minute, blood pressure is 128/62, respiratory rate is 18, O2 sat is 96% on 4 L. There is no jugular venous distention. Chest exam reveals occasional rhonchi bilaterally. Heart exam reveals first and second heart sounds. No gallop. No murmur. Abdomen is soft. Examination of the extremities did not reveal any edema. Peripheral pulses are felt. The patient had a chest x-ray yesterday that still shows pulmonary congestion. LABS: Labs show that the hemoglobin is 10.2, potassium is 4.5 creatinine is 1.1. BUN is elevated; it was 25 on admission it is is 43 now. ASSESSMENT: 1. Acute myocardial infarction, status post catheterization and awaiting bypass surgery. 2. Ischemic cardiomyopathy with severe left ventricular dysfunction. 3. Acute pulmonary edema. PLAN: I will continue the patient on current medications. Clinically appears stable. We will continue to adjust the heparin per protocol. MMODL / IJN: [id number] /
[2018-12-09] MEDS ORDERED: METOPROLOL SUCCINATE (ER) 25 MG TAB.ER.24H PO STA (11:01)
[2018-12-09 11:02] LABS: Glucose,Whole Blood 244 mg/dL (75-99)
--- NOTE | 2018-12-09 11:35 | P.PN ---
Subjective Progress Note Date: 12/09/18 Principal diagnosis: Non-ST elevated CO, coronary artery disease, acute exacerbation of congestive heart failure with systolic dysfunction This is 68-year-old white male patient with past medical history of hypertension, diabetes, hypothyroidism, chronic nicotine dependence on and off half a pack a day for 50 years. He was admitted to the hospital on 12/06/2018 for shortness of breath. Chest x-ray showed acute pulmonary edema, and had a elevated N-terminal proBNP of 7600. Troponins were elevated, at 2.290, 6.060, 4.940. Patient did not have any chest pain. There was a concern for acute myocardial infarction, patient underwent cardiac catheterization on 12/07/[address] Thompson and was found to have multivessel artery disease, with circumflex lesion of 70-80%, obtuse marginal 270-80% in the ostial portion, and LAD lesion of 95%. All vessels were heavily calcified. Patient is scheduled for coronary artery bypass grafting by Dr. Lucas on 12/11/2018. Today she seen in follow-up in the intensive care unit, he is resting comfortably in bed, in no acute distress, currently in 4 L per nasal cannula his pulse ox is 96%, patient is on IV Lasix of 40 mg twice daily, yesterday we added IV steroids, is in -2723 mL fluid balance over the last 24 hours, denies any chest pain, and his incentive spirometer, able to achieve 1000 mL on it today. Lung sounds are positive for some diffuse wheezes posteriorly, but less bronchospastic compared to yesterday's exam. Bedside spirometry has been ordered, however patient has not been able to completed due to coughing. We will attempt to obtain it today and tomorrow. Objective - Vital Signs Vital signs: Vital Signs Temp 97.4 F L 12/09/18 08:00 Pulse 84 12/09/18 11:00 Resp 16 12/09/18 11:00 BP 123/60 12/09/18 11:00 Pulse Ox 96 12/09/18 11:00 Intake & Output 12/08/18 12/09/18 12/09/18 18:59 06:59 18:59 Intake Total 188.598 413.290 121.333 Output Total 1965 1360 610 Balance -1776.402 -946.710 -488.667 Weight 91 kg Intake: IV 220 100 0.9 KVO 220 100 Intake, IV Titration 188.598 193.290 21.333 Amount Heparin Sod,Pork in 0.45% 188.598 162.757 NaCl 25,000 unit In 0.45 % NaCl 1 250ml.bag @ 13 UNITS/KG/HR 12.29 mls/hr IV .[id number] [facility] Rx#: [id number] Insulin Regular 100 unit 30.533 21.333 In Sodium Chloride 0.9% 100 ml @ Per Protocol IV .Q0M [facility] Rx#:[id number] Output: Urine 1965 1360 610 Other: Voiding Method Indwelling Catheter Indwelling Catheter Indwelling Catheter - Exam GENERAL EXAM: Alert, pleasant, 68-year-old white male comfortable in no apparent distress. HEAD: Normocephalic/atraumatic. EYES: Normal reaction of pupils, equal size. Conjunctiva pink, sclera white. NOSE: Clear with pink turbinates. THROAT: No erythema or exudates. NECK: No masses, no JVD, no thyroid enlargement, no adenopathy. CHEST: No chest wall deformity. Symmetrical expansion. LUNGS: Equal air entry with diffuse wheezes posteriorly and a few scattered rhonchi CVS: Regular rate and rhythm, normal S1 and S2, no gallops, no murmurs, no rubs ABDOMEN: Soft, nontender. No hepatosplenomegaly, normal bowel sounds, no guarding or rigidity. EXTREMITIES: No clubbing, no edema, no cyanosis, 2+ pulses and upper and lower extremities. MUSCULOSKELETAL: Muscle strength and tone normal. SPINE: No scoliosis or deformity SKIN: No rashes CENTRAL NERVOUS SYSTEM: Alert and oriented -3. No focal deficits, tone is normal in all 4 extremities. PSYCHIATRIC: Alert and oriented -3. Appropriate affect. Intact judgment and insight. - Labs CBC & Chem 7: 12/09/18 04:34 12/09/18 04:34 Labs: Abnormal Lab Results - Last 24 Hours (Table) 12/08/18 12/08/18 12/08/18 Range/Units 11:58 15:35 16:47 RBC (4.30-5.90) m/uL Hgb (13.0-17.5) gm/dL Hct (39.0-53.0) % Lymphocytes # (1.0-4.8) k/uL APTT 39.0 H (22.0-30.0) sec Sodium (137-145) mmol/L BUN (9-20) mg/dL POC Glucose (mg/dL) 235 H 286 H (75-99) mg/dL Calcium (8.4-10.2) mg/dL 12/08/18 12/08/18 12/08/18 Range/Units 20:46 20:47 22:15 RBC (4.30-5.90) m/uL Hgb (13.0-17.5) gm/dL Hct (39.0-53.0) % Lymphocytes # (1.0-4.8) k/uL APTT 168.5 H* (22.0-30.0) sec Sodium (137-145) mmol/L BUN (9-20) mg/dL POC Glucose (mg/dL) 374 H 376 H (75-99) mg/dL Calcium (8.4-10.2) mg/dL 12/08/18 12/09/18 12/09/18 Range/Units 23:55 00:49 01:10 RBC (4.30-5.90) m/uL Hgb (13.0-17.5) gm/dL Hct (39.0-53.0) % Lymphocytes # (1.0-4.8) k/uL APTT (22.0-30.0) sec Sodium (137-145) mmol/L BUN (9-20) mg/dL POC Glucose (mg/dL) 332 H 311 H 314 H (75-99) mg/dL Calcium (8.4-10.2) mg/dL 12/09/18 12/09/18 12/09/18 Range/Units 01:55 02:55 03:29 RBC (4.30-5.90) m/uL Hgb (13.0-17.5) gm/dL Hct (39.0-53.0) % Lymphocytes # (1.0-4.8) k/uL APTT (22.0-30.0) sec Sodium (137-145) mmol/L BUN (9-20) mg/dL POC Glucose (mg/dL) 222 H 128 H 105 H (75-99) mg/dL Calcium (8.4-10.2) mg/dL 12/09/18 12/09/18 12/09/18 Range/Units 04:34 04:34 04:34 RBC 3.36 L (4.30-5.90) m/uL Hgb 10.2 L (13.0-17.5) gm/dL Hct 30.4 L (39.0-53.0) % Lymphocytes # 0.4 L (1.0-4.8) k/uL APTT 117.7 H* (22.0-30.0) sec Sodium 136 L (137-145) mmol/L BUN 43 H (9-20) mg/dL POC Glucose (mg/dL) (75-99) mg/dL Calcium 8.1 L (8.4-10.2) mg/dL 12/09/18 12/09/18 12/09/18 Range/Units 05:27 06:01 06:56 RBC (4.30-5.90) m/uL Hgb (13.0-17.5) gm/dL Hct (39.0-53.0) % Lymphocytes # (1.0-4.8) k/uL APTT (22.0-30.0) sec Sodium (137-145) mmol/L BUN (9-20) mg/dL POC Glucose (mg/dL) 131 H 161 H 160 H (75-99) mg/dL Calcium (8.4-10.2) mg/dL 12/09/18 12/09/18 12/09/18 Range/Units 08:19 09:18 09:53 RBC (4.30-5.90) m/uL Hgb (13.0-17.5) gm/dL Hct (39.0-53.0) % Lymphocytes # (1.0-4.8) k/uL APTT (22.0-30.0) sec Sodium (137-145) mmol/L BUN (9-20) mg/dL POC Glucose (mg/dL) 143 H 185 H 218 H (75-99) mg/dL Calcium (8.4-10.2) mg/dL 12/09/18 Range/Units 10:59 RBC (4.30-5.90) m/uL Hgb (13.0-17.5) gm/dL Hct (39.0-53.0) % Lymphocytes # (1.0-4.8) k/uL APTT (22.0-30.0) sec Sodium (137-145) mmol/L BUN (9-20) mg/dL POC Glucose (mg/dL) 244 H (75-99) mg/dL Calcium (8.4-10.2) mg/dL Microbiology - Last 24 Hours (Table) 12/07/18 Unknown Nasal Screen MRSA/MSSA - Final Nasopharyngeal Swab 12/07/18 Unknown Urine Culture - Final Urine,Catheterized Assessment and Plan Plan: Assessment: #1. Acute non-ST elevated myocardial infarction #2. Severe three-vessel coronary artery disease, patient had a 70 to 80% percent occlusion of the circumflex coronary artery, 70-80% lesion in the obtuse marginal 2, and 95% lesion in the LAD, has been evaluated by CT surgery, and bypass surgery scheduled for this Sunday on the alf he 2018 #3. Acute hypoxemic respiratory failure secondary to acute exacerbation of congestive heart failure, with systolic dysfunction #4. Hypertension #5. Hypothyroid #6. Diabetes mellitus type 2 #7. Suspect underlying chronic obstructive pulmonary disease, and bedside spirometry is pending #8. Nicotine dependence, patient carries over 50 years of smoking history of less then a pack a day Plan: Continue IV Solu-Medrol, DuoNeb breathing treatments, Pulmicort and Perforomist. Patient is diuresing, he is maintaining negative fluid balance, yesterday's chest x-ray still showed continuing interstitial change though improved from previous x-ray. Denies any chest pain, continues on heparin drip. Try to obtain bedside spirometry today, and repeated tomorrow. Anticipate the PFT to be abnormal, consistent with suspected underlying COPD I performed a history & physical examination of the patient and discussed their management with my nurse practitioner, Mercedes Neal. I reviewed the nurse practitioner's note and agree with the documented findings and plan of care. Lung sounds are positive for diffuse wheezes throughout the lung krishna. The findings and the impression was discussed with the patient. I attest to the documentation by the nurse practitioner. Time with Patient: Greater than 30
[2018-12-09 11:58] LABS: Glucose,Whole Blood 207 mg/dL (75-99)
[2018-12-09] MEDS: HEPARIN SOD,PORK IN 0.45% NACL 25,000 UNIT in 0.45% NACL 1 250ML.BAG IV SCH (12:51)
[2018-12-09 12:54] LABS: Glucose,Whole Blood 187 mg/dL (75-99)
--- NOTE | 2018-12-09 13:25 | P.PN ---
Subjective 68-year-old admitted secondary to non-ST elevation myocardial infarction acute congestive heart failure secondary to myocardial infarction patient underwent cardiac catheterization found to have two-vessel disease including LAD disease because of which cardiology is recommending coronary artery bypass grafting carotid thoracic surgery was consulted and they're planning on doing CABG and Sunday. Patient still has volume overload patient will be started on 40 IV twice a day of Lasix. Patient is still bit shot of breath requiring 4 L of oxygen via does have some wheezing on exam may be cardiac asthma but it if his oxygen requirements doesn't come down will start him on albuterol and Symbicort at that time. 12/09/2018 Patient is still wheezing quite a bit with rhonchus breath sounds crackles Lasix will be continued daily probably need to switch him to oral Lasix cut down the Lasix tomorrow. Patient was started on systemic steroids by infectious disease is pedal edema improved but still requiring 4 L of oxygen Constitutional: Denied any fatigue denied any fever. Cardio vascular: denied any chest pain, palpitations Gastrointestinal denied any nausea vomiting Pulmonary: As mentioned in the interval history Neurologic denied any new focal deficits All inpatient medications were reviewed and appropriate changes in these medications as dictated in the interval history and assessment and plan. Objective - Vital Signs Vital signs: Vital Signs Temp 97.5 F L 12/09/18 12:00 Pulse 85 12/09/18 13:00 Resp 18 12/09/18 13:00 BP 127/55 12/09/18 13:00 Pulse Ox 94 L 12/09/18 13:00 Intake & Output 12/08/18 12/09/18 12/09/18 18:59 06:59 18:59 Intake Total 188.598 413.290 188.973 Output Total 1965 1360 690 Balance -1776.402 -946.710 -501.027 Weight 91 kg Intake: IV 220 120 0.9 KVO 220 120 Intake, IV Titration 188.598 193.290 68.973 Amount Heparin Sod,Pork in 0.45% 188.598 162.757 32.757 NaCl 25,000 unit In 0.45 % NaCl 1 250ml.bag @ 13 UNITS/KG/HR 12.29 mls/hr IV .[id number] [facility] Rx#: [id number] Insulin Regular 100 unit 30.533 36.216 In Sodium Chloride 0.9% 100 ml @ Per Protocol IV .Q0M [facility] Rx#:[id number] Output: Urine 1965 1360 690 Other: Voiding Method Indwelling Catheter Indwelling Catheter Indwelling Catheter - Exam PHYSICAL EXAMINATION: GENERAL: The patient is alert and oriented x3, not in any acute distress. Well developed, well nourished. HEENT: Pupils are round and equally reacting to light. EOMI. No scleral icterus. No conjunctival pallor. Normocephalic, atraumatic. No pharyngeal erythema. No thyromegaly. CARDIOVASCULAR: S1 and S2 present. No murmurs, rubs, or gallops. PULMONARY: Extensive by bilateral crackles spreading wheezing and rhonchus breath sounds ABDOMEN: Soft, nontender, nondistended, normoactive bowel sounds. No palpable organomegaly. MUSCULOSKELETAL: No joint swelling or deformity. EXTREMITIES: No cyanosis, clubbing, or pedal edema. NEUROLOGICAL: Gross neurological examination did not reveal any focal deficits. SKIN: No rashes. - Labs CBC & Chem 7: 12/09/18 04:34 12/09/18 04:34 Labs: Abnormal Lab Results - Last 24 Hours (Table) 12/08/18 12/08/18 12/08/18 Range/Units 15:35 16:47 20:46 RBC (4.30-5.90) m/uL Hgb (13.0-17.5) gm/dL Hct (39.0-53.0) % Lymphocytes # (1.0-4.8) k/uL APTT 39.0 H (22.0-30.0) sec Sodium (137-145) mmol/L BUN (9-20) mg/dL POC Glucose (mg/dL) 286 H 374 H (75-99) mg/dL Calcium (8.4-10.2) mg/dL 12/08/18 12/08/18 12/08/18 Range/Units 20:47 22:15 23:55 RBC (4.30-5.90) m/uL Hgb (13.0-17.5) gm/dL Hct (39.0-53.0) % Lymphocytes # (1.0-4.8) k/uL APTT 168.5 H* (22.0-30.0) sec Sodium (137-145) mmol/L BUN (9-20) mg/dL POC Glucose (mg/dL) 376 H 332 H (75-99) mg/dL Calcium (8.4-10.2) mg/dL 12/09/18 12/09/18 12/09/18 Range/Units 00:49 01:10 01:55 RBC (4.30-5.90) m/uL Hgb (13.0-17.5) gm/dL Hct (39.0-53.0) % Lymphocytes # (1.0-4.8) k/uL APTT (22.0-30.0) sec Sodium (137-145) mmol/L BUN (9-20) mg/dL POC Glucose (mg/dL) 311 H 314 H 222 H (75-99) mg/dL Calcium (8.4-10.2) mg/dL 12/09/18 12/09/18 12/09/18 Range/Units 02:55 03:29 04:34 RBC 3.36 L (4.30-5.90) m/uL Hgb 10.2 L (13.0-17.5) gm/dL Hct 30.4 L (39.0-53.0) % Lymphocytes # 0.4 L (1.0-4.8) k/uL APTT (22.0-30.0) sec Sodium (137-145) mmol/L BUN (9-20) mg/dL POC Glucose (mg/dL) 128 H 105 H (75-99) mg/dL Calcium (8.4-10.2) mg/dL 12/09/18 12/09/18 12/09/18 Range/Units 04:34 04:34 05:27 RBC (4.30-5.90) m/uL Hgb (13.0-17.5) gm/dL Hct (39.0-53.0) % Lymphocytes # (1.0-4.8) k/uL APTT 117.7 H* (22.0-30.0) sec Sodium 136 L (137-145) mmol/L BUN 43 H (9-20) mg/dL POC Glucose (mg/dL) 131 H (75-99) mg/dL Calcium 8.1 L (8.4-10.2) mg/dL 12/09/18 12/09/18 12/09/18 Range/Units 06:01 06:56 08:19 RBC (4.30-5.90) m/uL Hgb (13.0-17.5) gm/dL Hct (39.0-53.0) % Lymphocytes # (1.0-4.8) k/uL APTT (22.0-30.0) sec Sodium (137-145) mmol/L BUN (9-20) mg/dL POC Glucose (mg/dL) 161 H 160 H 143 H (75-99) mg/dL Calcium (8.4-10.2) mg/dL 12/09/18 12/09/18 12/09/18 Range/Units 09:18 09:53 10:59 RBC (4.30-5.90) m/uL Hgb (13.0-17.5) gm/dL Hct (39.0-53.0) % Lymphocytes # (1.0-4.8) k/uL APTT (22.0-30.0) sec Sodium (137-145) mmol/L BUN (9-20) mg/dL POC Glucose (mg/dL) 185 H 218 H 244 H (75-99) mg/dL Calcium (8.4-10.2) mg/dL 12/09/18 12/09/18 Range/Units 11:55 12:50 RBC (4.30-5.90) m/uL Hgb (13.0-17.5) gm/dL Hct (39.0-53.0) % Lymphocytes # (1.0-4.8) k/uL APTT (22.0-30.0) sec Sodium (137-145) mmol/L BUN (9-20) mg/dL POC Glucose (mg/dL) 207 H 187 H (75-99) mg/dL Calcium (8.4-10.2) mg/dL Microbiology - Last 24 Hours (Table) 12/07/18 Unknown Nasal Screen MRSA/MSSA - Final Nasopharyngeal Swab 12/07/18 Unknown Urine Culture - Final Urine,Catheterized Assessment and Plan Plan: Acute non-ST elevation myocardial infarction: Probably secondary to acute systolic dysfunction from acute myocardial infarction non-ST elevation a cardiac infarction patient is found to have two-vessel disease including significant disease in LAD was evaluated for coronary artery bypass grafting and patient will undergo CABG and Wednesday as mentioned above Possible to have COPD with the mild acute exacerbation -Congestive heart failure appears to be acute systolic dysfunction for acute from acute myocardial infarction patient will be started on IV Lasix as mentioned about twice a day repeat basic metabolic profile tomorrow -Acute renal failure secondary to heart failure prerenal azotemia from heart failure further management as mentioned above -Possible chronic kidney disease from diabetic nephropathy Heparin type 2 diabetes mellitus continue sliding scale for now -Hyperlipidemia -Hypertension -Hypo-thyroidism -PTSD and bipolar disorder -Patient will continued on present medications close clinical monitoring basic metabolic profile tomorrow.
[2018-12-09 13:55] LABS: Glucose,Whole Blood 187 mg/dL (75-99)
[2018-12-09 15:18] LABS: Glucose,Whole Blood 199 mg/dL (75-99)
[2018-12-09] MEDS ORDERED: MD COMMUNICATION TO PHARMACY 1 EACH MISC PO ONE ×2 (15:56)
[2018-12-09 16:12] LABS: Glucose,Whole Blood 194 mg/dL (75-99)
[2018-12-09 17:34] LABS: Glucose,Whole Blood 197 mg/dL (75-99)
[2018-12-09 18:07] LABS: Glucose,Whole Blood 230 mg/dL (75-99)
[2018-12-09 19:03] LABS: Glucose,Whole Blood 219 mg/dL (75-99)
[2018-12-09 20:13] LABS: Glucose,Whole Blood 261 mg/dL (75-99)
[2018-12-09 20:50] LABS: Glucose,Whole Blood 174 mg/dL (75-99)
[2018-12-09] MEDS: HEPARIN SODIUM,PORCINE 5,000 UNIT/ML 1 ML VIAL IV PRN (21:28)
[2018-12-09 22:16] LABS: Glucose,Whole Blood 158 mg/dL (75-99)
[2018-12-10 00:09] LABS: Glucose,Whole Blood 101 mg/dL (75-99)
[2018-12-10 01:04] LABS: Glucose,Whole Blood 208 mg/dL (75-99)
[2018-12-10 02:05] LABS: Glucose,Whole Blood 177 mg/dL (75-99)
[2018-12-10 02:42] LABS: Basophils % (A) 0 %; Eosinophils % (A) 0 %; HCT 29.9 % (39.0-53.0); HGB 9.9 gm/dL (13.0-17.5); Lymphocytes # (A) 0.4 k/uL (1.0-4.8); Lymphocytes % (A) 3 %; MCHC 33.2 g/dL (31.0-37.0); MCV 90.3 fL (80.0-100.0); Mean Platelet Volume 7.1; Monocytes # (A) 0.3 k/uL (0-1.0); Monocytes % (A) 2 %; Neutrophils # (A) 13.1 k/uL (1.3-7.7); Neutrophils % (A) 92 %; Platelet Count 381 k/uL (150-450); RBC 3.31 m/uL (4.30-5.90); RDW 12.8 % (11.5-15.5); WBC 14.1 k/uL (3.8-10.6)
[2018-12-10 03:03] LABS: Partial Thromboplastin Time 99.2 sec (22.0-30.0); Prothrombin Time 10.9 sec (9.0-12.0)
[2018-12-10 03:23] LABS: Glucose,Whole Blood 105 mg/dL (75-99)
[2018-12-10 03:31] LABS: Calcium 8.1 mg/dL (8.4-10.2); Magnesium 2.2 mg/dL (1.6-2.3); Potassium 4.1 mmol/L (3.5-5.1); Total Bilirubin 0.4 mg/dL (0.2-1.3); Total Protein 5.9 g/dL (6.3-8.2)
[2018-12-10 04:12] LABS: Glucose,Whole Blood 93 mg/dL (75-99)
[2018-12-10] MEDS: methylPREDNISolone SOD SUCCI 125 MG/2 ML VIAL IV SCH ×3 (05:24→17:26)
[2018-12-10] MEDS: LEVOTHYROXINE 75 MCG TAB PO SCH (05:25)
[2018-12-10 06:04] LABS: Glucose,Whole Blood 183 mg/dL (75-99)
[2018-12-10 06:04] LABS: Glucose,Whole Blood 167 mg/dL (75-99)
[2018-12-10 07:10] LABS: Glucose,Whole Blood 143 mg/dL (75-99)
[2018-12-10] MEDS: INSULIN REGULAR 100 UNIT in SODIUM CHLORIDE 0.9% 100 ML IV SCH (07:31)
--- NOTE | 2018-12-10 07:44 | XR ---
EXAMINATION TYPE: XR chest 1V portable DATE OF EXAM: 12/10/2018 CLINICAL HISTORY: Difficulty breathing progress study. TECHNIQUE: Single AP portable upright view of the chest is obtained. COMPARISON: Chest x-ray from 2 days earlier. FINDINGS: There is reticular interstitial changes redemonstrated bilaterally. There is developing in frahilar opacities noted. No large pleural effusion or pneumothorax is seen bilaterally. Cardiac silh ouette size is stable and upper limits of normal. Osseous structures are intact. IMPRESSION: Persistent bilateral reticular interstitial edema and/or infiltrates with developing more focal bilateral infrahilar alveolar edema and/or infiltrates noted. Progress study advised.
[2018-12-10] MEDS: FORMOTEROL FUMARATE 20 MCG/2 ML NEBU INHALATION SCH ×2 (07:46→19:51)
[2018-12-10] MEDS: BUDESONIDE 1 MG/2 ML NEBU INHALATION SCH ×2 (07:46→19:52)
[2018-12-10] MEDS: IPRATROPIUM-ALBUTEROL 3 ML NEB INHALATION SCH ×4 (07:46→19:51)
[2018-12-10 08:45] LABS: Glucose,Whole Blood 138 mg/dL (75-99)
[2018-12-10] MEDS: METOPROLOL SUCCINATE (ER) 25 MG TAB.ER.24H PO SCH (08:56)
--- NOTE | 2018-12-10 08:56 | P.VSCSTY ---
Greater Saphenous Vein Mapping This is bilateral lower extremity greater saphenous vein mapping. Date of service 12/08/2018 Vein quality and ultrasound appearance we see no intraluminal thrombus or wall changes. Vein size groin right 5.4 x 6.6 groin left 5.9 x 6.4 High thigh right 5.0 x 5.3 high thigh left 3.8 x 4.7 Mid thigh right 3.3 x 3.6 mid thigh left 3.2 x 3.1 Above-knee right 3.4 x 3.5 above- knee left 3.4 x 3.6 Below knee right 3.7 x 4.1 below-knee left 2.8 x 3.4 Mid calf right 2.6 x 2.9 mid calf left 2.4 x 2.9 Ankle right 2.6 x 3.1 ankle left 2.3 x 2.9 Impression: usable bilateral greater saphenous vein.
[2018-12-10] MEDS: ATORVASTATIN 40 MG TAB PO SCH (08:57)
[2018-12-10] MEDS: ASPIRIN 325 MG TAB PO SCH (08:57)
[2018-12-10] MEDS: PANTOPRAZOLE 40 MG TABLET PO SCH (08:58)
[2018-12-10] MEDS: FUROSEMIDE 10 MG/ML 4 ML VIAL IV SCH ×2 (08:59→20:45)
[2018-12-10] MEDS: MUPIROCIN 2% OINT 22 GM TUBE TOPICAL SCH ×2 (08:59→20:46)
--- NOTE | 2018-12-10 09:03 | P.PN ---
Subjective Progress Note Date: 12/10/18 On today's evaluation of 12/10/2018, I'm seeing this patient for a follow-up. The patient is anticipated to undergo coronary artery bypass surgery with the next 24 hours. Nevertheless, I find this pulmonate status to be extremely borderline. He was unable to give me a good bedside spirometry. He is still bronchospastic and wheezy. On the incentive spirometer and his pulling up only thousand and sometimes up to 1500 which is obviously low number. He is resting comfortably in bed. No shortness of breath even at rest. Chest x-ray still showing pulmonary edema and increased pulmonary vascular markings bilaterally. On and off is still having some episodes of chest pain. No nausea. No vomiting. No emesis. His white cell count is up to 14. His creatinine is up to 1.3. He remains on a combination of bronchodilators and is receiving DuoNeb nebulized treatment [id number]. He is also on a combination of Perforomist and Pulmicort neb last treatment twice a day. Is on IV Solu- Medrol. He is receiving Lasix 40 mg IV push every 12 hours. He remains on IV heparin. Objective - Vital Signs Vital signs: Vital Signs Temp 97.4 F L 12/10/18 08:00 Pulse 82 12/10/18 08:04 Resp 15 12/10/18 08:00 BP 120/57 12/10/18 08:00 Pulse Ox 97 12/10/18 08:00 Intake & Output 12/09/18 12/10/18 12/10/18 18:59 06:59 18:59 Intake Total 337.773 502.916 4 Output Total 1075 1542 Balance -737.227 -1039.084 4 Weight 91.2 kg Intake: IV 240 280 0.9 KVO 240 280 Intake, IV Titration 97.773 222.916 4 Amount Heparin Sod,Pork in 0.45% 32.757 150.716 NaCl 25,000 unit In 0.45 % NaCl 1 250ml.bag @ 13 UNITS/KG/HR 12.29 mls/hr IV .[id number] [facility] Rx#: [id number] Insulin Regular 100 unit 65.016 72.20 4 In Sodium Chloride 0.9% 100 ml @ Per Protocol IV .Q0M [facility] Rx#:[id number] Output: Urine 1075 1542 Other: Voiding Method Indwelling Catheter Indwelling Catheter - Exam GENERAL EXAM: Alert, pleasant, 68-year-old white male comfortable in no apparent distress. HEAD: Normocephalic/atraumatic. EYES: Normal reaction of pupils, equal size. Conjunctiva pink, sclera white. NOSE: Clear with pink turbinates. THROAT: No erythema or exudates. NECK: No masses, no JVD, no thyroid enlargement, no adenopathy. CHEST: No chest wall deformity. Symmetrical expansion. LUNGS: Equal air entry with diffuse wheezes posteriorly and a few scattered rhonchi CVS: Regular rate and rhythm, normal S1 and S2, no gallops, no murmurs, no rubs ABDOMEN: Soft, nontender. No hepatosplenomegaly, normal bowel sounds, no guarding or rigidity. EXTREMITIES: No clubbing, no edema, no cyanosis, 2+ pulses and upper and lower extremities. MUSCULOSKELETAL: Muscle strength and tone normal. SPINE: No scoliosis or deformity SKIN: No rashes CENTRAL NERVOUS SYSTEM: Alert and oriented -3. No focal deficits, tone is normal in all 4 extremities. PSYCHIATRIC: Alert and oriented -3. Appropriate affect. Intact judgment and insight. - Labs CBC & Chem 7: 12/10/18 02:21 12/10/18 02:21 Labs: Abnormal Lab Results - Last 24 Hours (Table) 12/09/18 12/09/18 12/09/18 Range/Units 09:18 09:53 10:59 WBC (3.8-10.6) k/uL RBC (4.30-5.90) m/uL Hgb (13.0-17.5) gm/dL Hct (39.0-53.0) % Neutrophils # (1.3-7.7) k/uL Lymphocytes # (1.0-4.8) k/uL APTT (22.0-30.0) sec BUN (9-20) mg/dL Creatinine (0.66-1.25) mg/dL Glucose (74-99) mg/dL POC Glucose (mg/dL) 185 H 218 H 244 H (75-99) mg/dL Calcium (8.4-10.2) mg/dL Alkaline Phosphatase (38-126) U/L Total Protein (6.3-8.2) g/dL Albumin (3.5-5.0) g/dL Crossmatch 12/09/18 12/09/18 12/09/18 Range/Units 11:55 12:50 13:52 WBC (3.8-10.6) k/uL RBC (4.30-5.90) m/uL Hgb (13.0-17.5) gm/dL Hct (39.0-53.0) % Neutrophils # (1.3-7.7) k/uL Lymphocytes # (1.0-4.8) k/uL APTT (22.0-30.0) sec BUN (9-20) mg/dL Creatinine (0.66-1.25) mg/dL Glucose (74-99) mg/dL POC Glucose (mg/dL) 207 H 187 H 187 H (75-99) mg/dL Calcium (8.4-10.2) mg/dL Alkaline Phosphatase (38-126) U/L Total Protein (6.3-8.2) g/dL Albumin (3.5-5.0) g/dL Crossmatch 12/09/18 12/09/18 12/09/18 Range/Units 14:07 14:07 15:15 WBC (3.8-10.6) k/uL RBC (4.30-5.90) m/uL Hgb (13.0-17.5) gm/dL Hct (39.0-53.0) % Neutrophils # (1.3-7.7) k/uL Lymphocytes # (1.0-4.8) k/uL APTT 48.2 H (22.0-30.0) sec BUN (9-20) mg/dL Creatinine (0.66-1.25) mg/dL Glucose (74-99) mg/dL POC Glucose (mg/dL) 199 H (75-99) mg/dL Calcium (8.4-10.2) mg/dL Alkaline Phosphatase (38-126) U/L Total Protein (6.3-8.2) g/dL Albumin (3.5-5.0) g/dL Crossmatch See Detail 12/09/18 12/09/18 12/09/18 Range/Units 16:09 17:30 18:04 WBC (3.8-10.6) k/uL RBC (4.30-5.90) m/uL Hgb (13.0-17.5) gm/dL Hct (39.0-53.0) % Neutrophils # (1.3-7.7) k/uL Lymphocytes # (1.0-4.8) k/uL APTT (22.0-30.0) sec BUN (9-20) mg/dL Creatinine (0.66-1.25) mg/dL Glucose (74-99) mg/dL POC Glucose (mg/dL) 194 H 197 H 230 H (75-99) mg/dL Calcium (8.4-10.2) mg/dL Alkaline Phosphatase (38-126) U/L Total Protein (6.3-8.2) g/dL Albumin (3.5-5.0) g/dL Crossmatch 12/09/18 12/09/18 12/09/18 Range/Units 19:00 19:59 20:13 WBC (3.8-10.6) k/uL RBC (4.30-5.90) m/uL Hgb (13.0-17.5) gm/dL Hct (39.0-53.0) % Neutrophils # (1.3-7.7) k/uL Lymphocytes # (1.0-4.8) k/uL APTT 44.2 H (22.0-30.0) sec BUN (9-20) mg/dL Creatinine (0.66-1.25) mg/dL Glucose (74-99) mg/dL POC Glucose (mg/dL) 219 H 261 H (75-99) mg/dL Calcium (8.4-10.2) mg/dL Alkaline Phosphatase (38-126) U/L Total Protein (6.3-8.2) g/dL Albumin (3.5-5.0) g/dL Crossmatch 12/09/18 12/09/18 12/09/18 Range/Units 20:46 22:13 23:08 WBC (3.8-10.6) k/uL RBC (4.30-5.90) m/uL Hgb (13.0-17.5) gm/dL Hct (39.0-53.0) % Neutrophils # (1.3-7.7) k/uL Lymphocytes # (1.0-4.8) k/uL APTT (22.0-30.0) sec BUN (9-20) mg/dL Creatinine (0.66-1.25) mg/dL Glucose (74-99) mg/dL POC Glucose (mg/dL) 174 H 158 H 101 H (75-99) mg/dL Calcium (8.4-10.2) mg/dL Alkaline Phosphatase (38-126) U/L Total Protein (6.3-8.2) g/dL Albumin (3.5-5.0) g/dL Crossmatch 12/10/18 12/10/18 12/10/18 Range/Units 00:42 02:02 02:21 WBC (3.8-10.6) k/uL RBC (4.30-5.90) m/uL Hgb (13.0-17.5) gm/dL Hct (39.0-53.0) % Neutrophils # (1.3-7.7) k/uL Lymphocytes # (1.0-4.8) k/uL APTT (22.0-30.0) sec BUN (9-20) mg/dL Creatinine (0.66-1.25) mg/dL Glucose (74-99) mg/dL POC Glucose (mg/dL) 208 H 177 H (75-99) mg/dL Calcium (8.4-10.2) mg/dL Alkaline Phosphatase (38-126) U/L Total Protein (6.3-8.2) g/dL Albumin (3.5-5.0) g/dL Crossmatch See Detail 12/10/18 12/10/18 12/10/18 Range/Units 02:21 02:21 02:21 WBC 14.1 H (3.8-10.6) k/uL RBC 3.31 L (4.30-5.90) m/uL Hgb 9.9 L (13.0-17.5) gm/dL Hct 29.9 L (39.0-53.0) % Neutrophils # 13.1 H (1.3-7.7) k/uL Lymphocytes # 0.4 L (1.0-4.8) k/uL APTT 99.2 H (22.0-30.0) sec BUN 48 H (9-20) mg/dL Creatinine 1.31 H (0.66-1.25) mg/dL Glucose 149 H (74-99) mg/dL POC Glucose (mg/dL) (75-99) mg/dL Calcium 8.1 L (8.4-10.2) mg/dL Alkaline Phosphatase 37 L (38-126) U/L Total Protein 5.9 L (6.3-8.2) g/dL Albumin 3.0 L (3.5-5.0) g/dL Crossmatch 12/10/18 12/10/18 12/10/18 Range/Units 03:20 05:11 06:00 WBC (3.8-10.6) k/uL RBC (4.30-5.90) m/uL Hgb (13.0-17.5) gm/dL Hct (39.0-53.0) % Neutrophils # (1.3-7.7) k/uL Lymphocytes # (1.0-4.8) k/uL APTT (22.0-30.0) sec BUN (9-20) mg/dL Creatinine (0.66-1.25) mg/dL Glucose (74-99) mg/dL POC Glucose (mg/dL) 105 H 167 H 183 H (75-99) mg/dL Calcium (8.4-10.2) mg/dL Alkaline Phosphatase (38-126) U/L Total Protein (6.3-8.2) g/dL Albumin (3.5-5.0) g/dL Crossmatch 12/10/18 12/10/18 Range/Units 07:04 08:13 WBC (3.8-10.6) k/uL RBC (4.30-5.90) m/uL Hgb (13.0-17.5) gm/dL Hct (39.0-53.0) % Neutrophils # (1.3-7.7) k/uL Lymphocytes # (1.0-4.8) k/uL APTT (22.0-30.0) sec BUN (9-20) mg/dL Creatinine (0.66-1.25) mg/dL Glucose (74-99) mg/dL POC Glucose (mg/dL) 143 H 138 H (75-99) mg/dL Calcium (8.4-10.2) mg/dL Alkaline Phosphatase (38-126) U/L Total Protein (6.3-8.2) g/dL Albumin (3.5-5.0) g/dL Crossmatch Assessment and Plan Plan: Assessment: #1. Acute non-ST elevated myocardial infarction #2. Severe three-vessel coronary artery disease, patient had a 70 to 80% percent occlusion of the circumflex coronary artery, 70-80% lesion in the obtuse marginal 2, and 95% lesion in the LAD, has been evaluated by CT surgery, and bypass surgery scheduled for this Sunday on the assisted 2018 #3. Acute hypoxemic respiratory failure secondary to acute exacerbation of congestive heart failure, with systolic dysfunction #4. Hypertension #5. Hypothyroid #6. Diabetes mellitus type 2 #7. Suspect underlying chronic obstructive pulmonary disease, and bedside spirometry is pending #8. Nicotine dependence, patient carries over 50 years of smoking history of less then a pack a day Plan I personally finger the patient is still having active COPD manifestations. He just quit smoking. His back and he remains actively bronchospastic and wheezy and continues to have a congested cough which obviously puts him at high risk of developing postoperative pulmonary complications including prolonged mechanical ventilation , in addition to other complications of prolonged mechanical ventilation such as pneumonia, tracheostomy tube insertion, etc. I have already discussed this with the cardiothoracic surgeon. I think we need to wait another 48 hours with a combination of bronchodilators and steroids as well as further optimized. The bedside spirometry was done showed a very poor FEV1 of less than 30%. It's reasonable to repeat it within next 24 hours to make sure there is at least some improvement in his obstructive airway disease which is actively symptomatic at this point in time. Continue local dilators. Obtain a room air ABG. High risk for pulmonary complications. Strongly suggest delaying the surgery for another 48 hours.
--- NOTE | 2018-12-10 09:09 | P.PN ---
Subjective Progress Note Date: 12/10/18 Principal diagnosis: Coronary artery disease, non-STEMI, acute decompensated systolic heart failure. Previous medical history of hypertension, hyperlipidemia, insulin-dependent diabetes mellitus with current hemoglobin A1c 6.6%, hypothyroid, bipolar/PTSD, syncope in September 2017 with demonstration of old right lacunar infarct on brain CT, right internal carotid artery stenosis 50-69%, current tobacco dependence, severe COPD with preoperative FEV1 23% of predicted, and right hip surgery. The patient is currently laying in bed in no acute distress the intensive care unit. He denies any chest pain or shortness of breath. He does continue to complain of coughing with deep breathing, FEV1 completed yesterday 23% of predicted. Remains on IV as well as inhaled steroids per pulmonology. Remains on IV heparin. Objective - Vital Signs Vital signs: Vital Signs Temp 97.5 F L 12/10/18 04:00 Pulse 82 12/10/18 08:04 Resp 11 L 12/10/18 07:00 BP 122/60 12/10/18 07:00 Pulse Ox 94 L 12/10/18 07:00 Intake & Output 12/09/18 12/10/18 12/10/18 18:59 06:59 18:59 Intake Total 337.773 502.916 Output Total 1075 1542 Balance -737.227 -1039.084 Weight 91.2 kg Intake: IV 240 280 0.9 KVO 240 280 Intake, IV Titration 97.773 222.916 Amount Heparin Sod,Pork in 0.45% 32.757 150.716 NaCl 25,000 unit In 0.45 % NaCl 1 250ml.bag @ 13 UNITS/KG/HR 12.29 mls/hr IV .[id number] [facility] Rx#: [id number] Insulin Regular 100 unit 65.016 72.20 In Sodium Chloride 0.9% 100 ml @ Per Protocol IV .Q0M [facility] Rx#:[id number] Output: Urine 1075 1542 Other: Voiding Method Indwelling Catheter Indwelling Catheter - Constitutional General appearance: Present: cooperative, no acute distress, obese - Respiratory Details: Lungs sounds diminished bilaterally with coarse breath sounds and expiratory wheeze in the bases. Respirations even, nonlabored. Currently on 3 L nasal cannula with oxygen saturation 95%. Able to achieve 1250 mL on his incentive spirometry. Strong cough. - Cardiovascular Details: S1, S2 present. Regular rate and rhythm, sinus rhythm on telemetry. Palpable peripheral pulses bilaterally. No edema present. No calf pain or tenderness noted. SCDs present. - Gastrointestinal Gastrointestinal Comment(s): Abdomen soft, nontender, nondistended. Active bowel sounds 4 quadrants. Tolerating diet. - Genitourinary Genitourinary Comment(s): Tripp present draining clear, yellow urine. Output 50-400 mL per hour overnight , 1310 mL in the last 8 hours. - Integumentary Integumentary Comment(s): Skin is warm and dry with evidence of good perfusion. - Neurologic Neurologic: Present: CNII-XII intact - Musculoskeletal Musculoskeletal: Present: strength equal bilaterally - Psychiatric Psychiatric: Present: A&O x's 3, appropriate affect, intact judgment & insight - Allied health notes Allied health notes reviewed: nursing - Labs CBC & Chem 7: 12/10/18 02:21 12/10/18 02:21 Labs: Abnormal Lab Results - Last 24 Hours (Table) 12/09/18 12/09/18 12/09/18 Range/Units 09:18 09:53 10:59 WBC (3.8-10.6) k/uL RBC (4.30-5.90) m/uL Hgb (13.0-17.5) gm/dL Hct (39.0-53.0) % Neutrophils # (1.3-7.7) k/uL Lymphocytes # (1.0-4.8) k/uL APTT (22.0-30.0) sec BUN (9-20) mg/dL Creatinine (0.66-1.25) mg/dL Glucose (74-99) mg/dL POC Glucose (mg/dL) 185 H 218 H 244 H (75-99) mg/dL Calcium (8.4-10.2) mg/dL Alkaline Phosphatase (38-126) U/L Total Protein (6.3-8.2) g/dL Albumin (3.5-5.0) g/dL Crossmatch 12/09/18 12/09/18 12/09/18 Range/Units 11:55 12:50 13:52 WBC (3.8-10.6) k/uL RBC (4.30-5.90) m/uL Hgb (13.0-17.5) gm/dL Hct (39.0-53.0) % Neutrophils # (1.3-7.7) k/uL Lymphocytes # (1.0-4.8) k/uL APTT (22.0-30.0) sec BUN (9-20) mg/dL Creatinine (0.66-1.25) mg/dL Glucose (74-99) mg/dL POC Glucose (mg/dL) 207 H 187 H 187 H (75-99) mg/dL Calcium (8.4-10.2) mg/dL Alkaline Phosphatase (38-126) U/L Total Protein (6.3-8.2) g/dL Albumin (3.5-5.0) g/dL Crossmatch 12/09/18 12/09/18 12/09/18 Range/Units 14:07 14:07 15:15 WBC (3.8-10.6) k/uL RBC (4.30-5.90) m/uL Hgb (13.0-17.5) gm/dL Hct (39.0-53.0) % Neutrophils # (1.3-7.7) k/uL Lymphocytes # (1.0-4.8) k/uL APTT 48.2 H (22.0-30.0) sec BUN (9-20) mg/dL Creatinine (0.66-1.25) mg/dL Glucose (74-99) mg/dL POC Glucose (mg/dL) 199 H (75-99) mg/dL Calcium (8.4-10.2) mg/dL Alkaline Phosphatase (38-126) U/L Total Protein (6.3-8.2) g/dL Albumin (3.5-5.0) g/dL Crossmatch See Detail 12/09/18 12/09/18 12/09/18 Range/Units 16:09 17:30 18:04 WBC (3.8-10.6) k/uL RBC (4.30-5.90) m/uL Hgb (13.0-17.5) gm/dL Hct (39.0-53.0) % Neutrophils # (1.3-7.7) k/uL Lymphocytes # (1.0-4.8) k/uL APTT (22.0-30.0) sec BUN (9-20) mg/dL Creatinine (0.66-1.25) mg/dL Glucose (74-99) mg/dL POC Glucose (mg/dL) 194 H 197 H 230 H (75-99) mg/dL Calcium (8.4-10.2) mg/dL Alkaline Phosphatase (38-126) U/L Total Protein (6.3-8.2) g/dL Albumin (3.5-5.0) g/dL Crossmatch 12/09/18 12/09/18 12/09/18 Range/Units 19:00 19:59 20:13 WBC (3.8-10.6) k/uL RBC (4.30-5.90) m/uL Hgb (13.0-17.5) gm/dL Hct (39.0-53.0) % Neutrophils # (1.3-7.7) k/uL Lymphocytes # (1.0-4.8) k/uL APTT 44.2 H (22.0-30.0) sec BUN (9-20) mg/dL Creatinine (0.66-1.25) mg/dL Glucose (74-99) mg/dL POC Glucose (mg/dL) 219 H 261 H (75-99) mg/dL Calcium (8.4-10.2) mg/dL Alkaline Phosphatase (38-126) U/L Total Protein (6.3-8.2) g/dL Albumin (3.5-5.0) g/dL Crossmatch 12/09/18 12/09/18 12/09/18 Range/Units 20:46 22:13 23:08 WBC (3.8-10.6) k/uL RBC (4.30-5.90) m/uL Hgb (13.0-17.5) gm/dL Hct (39.0-53.0) % Neutrophils # (1.3-7.7) k/uL Lymphocytes # (1.0-4.8) k/uL APTT (22.0-30.0) sec BUN (9-20) mg/dL Creatinine (0.66-1.25) mg/dL Glucose (74-99) mg/dL POC Glucose (mg/dL) 174 H 158 H 101 H (75-99) mg/dL Calcium (8.4-10.2) mg/dL Alkaline Phosphatase (38-126) U/L Total Protein (6.3-8.2) g/dL Albumin (3.5-5.0) g/dL Crossmatch 12/10/18 12/10/18 12/10/18 Range/Units 00:42 02:02 02:21 WBC 14.1 H (3.8-10.6) k/uL RBC 3.31 L (4.30-5.90) m/uL Hgb 9.9 L (13.0-17.5) gm/dL Hct 29.9 L (39.0-53.0) % Neutrophils # 13.1 H (1.3-7.7) k/uL Lymphocytes # 0.4 L (1.0-4.8) k/uL APTT (22.0-30.0) sec BUN (9-20) mg/dL Creatinine (0.66-1.25) mg/dL Glucose (74-99) mg/dL POC Glucose (mg/dL) 208 H 177 H (75-99) mg/dL Calcium (8.4-10.2) mg/dL Alkaline Phosphatase (38-126) U/L Total Protein (6.3-8.2) g/dL Albumin (3.5-5.0) g/dL Crossmatch 12/10/18 12/10/18 12/10/18 Range/Units 02:21 02:21 03:20 WBC (3.8-10.6) k/uL RBC (4.30-5.90) m/uL Hgb (13.0-17.5) gm/dL Hct (39.0-53.0) % Neutrophils # (1.3-7.7) k/uL Lymphocytes # (1.0-4.8) k/uL APTT 99.2 H (22.0-30.0) sec BUN 48 H (9-20) mg/dL Creatinine 1.31 H (0.66-1.25) mg/dL Glucose 149 H (74-99) mg/dL POC Glucose (mg/dL) 105 H (75-99) mg/dL Calcium 8.1 L (8.4-10.2) mg/dL Alkaline Phosphatase 37 L (38-126) U/L Total Protein 5.9 L (6.3-8.2) g/dL Albumin 3.0 L (3.5-5.0) g/dL Crossmatch 12/10/18 12/10/18 12/10/18 Range/Units 05:11 06:00 07:04 WBC (3.8-10.6) k/uL RBC (4.30-5.90) m/uL Hgb (13.0-17.5) gm/dL Hct (39.0-53.0) % Neutrophils # (1.3-7.7) k/uL Lymphocytes # (1.0-4.8) k/uL APTT (22.0-30.0) sec BUN (9-20) mg/dL Creatinine (0.66-1.25) mg/dL Glucose (74-99) mg/dL POC Glucose (mg/dL) 167 H 183 H 143 H (75-99) mg/dL Calcium (8.4-10.2) mg/dL Alkaline Phosphatase (38-126) U/L Total Protein (6.3-8.2) g/dL Albumin (3.5-5.0) g/dL Crossmatch - Imaging and Cardiology Chest x-ray: report reviewed, image reviewed Assessment and Plan (1) Non-STEMI (non-ST elevated myocardial infarction) Current Visit: Yes Status: Acute Code(s): I21.4 - NON-ST ELEVATION (NSTEMI) MYOCARDIAL INFARCTION SNOMED Code(s): 34334060 (2) Acute systolic heart failure Current Visit: Yes Status: Acute Code(s): I50.21 - ACUTE SYSTOLIC ( CONGESTIVE) HEART FAILURE SNOMED Code(s): 587343274 (3) Hyperlipidemia associated with type 2 diabetes mellitus Current Visit: Yes Status: Chronic Code(s): E11.69 - TYPE 2 DIABETES MELLITUS WITH OTHER SPECIFIED COMPLICATION; E78.5 - HYPERLIPIDEMIA, UNSPECIFIED SNOMED Code(s): 529767280198 (4) Tobacco dependence Current Visit: Yes Status: Chronic Code(s): F17.200 - NICOTINE DEPENDENCE, UNSPECIFIED, UNCOMPLICATED SNOMED Code(s): 49250445 (5) History of syncope Current Visit: No Status: Resolved Code(s): Z87.898 - PERSONAL HISTORY OF OTHER SPECIFIED CONDITIONS SNOMED Code(s): 424558105240427 (6) Stenosis of right carotid artery greater than 50% Current Visit: Yes Status: Chronic Code(s): I65.21 - OCCLUSION AND STENOSIS OF RIGHT CAROTID ARTERY SNOMED Code(s): 178915987966764 (7) Acute respiratory failure with hypoxia Current Visit: Yes Status: Acute Code(s): J96.01 - ACUTE RESPIRATORY FAILURE WITH HYPOXIA SNOMED Code(s): 30691840 (8) Hypertension Current Visit: Yes Status: Chronic Code(s): I10 - ESSENTIAL (PRIMARY) HYPERTENSION SNOMED Code(s): 68015324 (9) Hypertensive emergency Current Visit: Yes Status: Acute Code(s): I16.1 - HYPERTENSIVE EMERGENCY SNOMED Code(s): 603608104536876 (10) Diabetes mellitus type 2, uncontrolled Current Visit: Yes Status: Chronic Code(s): E11.65 - TYPE 2 DIABETES MELLITUS WITH HYPERGLYCEMIA SNOMED Code(s): 99044763 (11) Hypoactive thyroid Current Visit: Yes Status: Chronic Code(s): E03.9 - HYPOTHYROIDISM, UNSPECIFIED SNOMED Code(s): 18108512 (12) Bipolar disorder Current Visit: Yes Status: Chronic Code(s): F31.9 - BIPOLAR DISORDER, UNSPECIFIED SNOMED Code(s): 67731772 Plan: 1. Continue aspirin, statin, beta sergio, IV heparin. 2. Will repeat FEV1, will obtain room air arterial blood gases. 3. Bronchodilators, steroids per pulmonology. 4. Encourage incentive spirometry use. 5. Increase activity as tolerated. Up to chair as able. 6. Hemoglobin trending down, will obtain fecal occult blood. 7. GI prophylaxis with Protonix, DVT prophylaxis with IV heparin, SCDs. 8. Continue to reinforce preoperative teaching. 9. STS risk score recalculated with most recent diagnostic information. Patient is high risk for surgery at this point in time, high risk for postoperative pulmonary complications including prolonged mechanical ventilation , pneumonia, renal failure, and stroke. Will discuss with cardiology. 10. More recommendations to follow. Time with Patient: Greater than 30
[2018-12-10 09:31] LABS: Glucose,Whole Blood 181 mg/dL (75-99)
[2018-12-10 10:08] LABS: ABG Base Excess 4.3 mmol/L; ABG HCO3 28 mmol/L (21-25); ABG PCO2 37 mmHg (35-45); ABG PH 7.48 (7.35-7.45); ABG TCO2 29 mmol/L (19-24)
[2018-12-10 10:10] LABS: ABG PO2 51 mmHg (83-108)
[2018-12-10] MEDS: NITROGLYCERIN OINT 1 INCH/GM PACKET TOPICAL SCH ×2 (10:25→16:21)
[2018-12-10 10:26] LABS: Glucose,Whole Blood 199 mg/dL (75-99)
[2018-12-10 11:16] LABS: Glucose,Whole Blood 178 mg/dL (75-99)
--- NOTE | 2018-12-10 11:54 | PN ---
PROGRESS NOTE Faisal is a 68-year-old gentleman who was admitted to hospital with acute myocardial infarction with pulmonary edema, was found to have severe 2 vessel coronary artery disease and is to undergo bypass surgery tomorrow. He appears comfortable at rest. Still has some cough and chest x-ray shows pulmonary congestion. He is currently on IV diuretics along with aspirin, nitrates, beta blockers and JOSE M inhibitors. On exam, comfortable at rest. Afebrile. Vital signs are stable. Chest exam reveals bilateral occasional rhonchi and crackles. Heart exam reveals first and second heart sounds. No gallop. No murmur. Abdomen is soft, nontender. Examination of extremities did not reveal any edema. Peripheral pulses are felt. ASSESSMENT: 1. Acute myocardial infarction. 2. Ischemic cardiomyopathy. 3. Severe 2-vessel coronary artery disease. 4. Left ventricular failure. PLAN: Continue the IV Lasix. The patient will have bypass surgery tomorrow. MMODL / IJN: [id number] /
[2018-12-10 12:22] LABS: Glucose,Whole Blood 162 mg/dL (75-99)
[2018-12-10 13:25] LABS: Glucose,Whole Blood 166 mg/dL (75-99)
[2018-12-10 14:59] LABS: Glucose,Whole Blood 171 mg/dL (75-99)
[2018-12-10 15:15] LABS: Glucose,Whole Blood 174 mg/dL (75-99)
[2018-12-10 16:18] LABS: Glucose,Whole Blood 167 mg/dL (75-99)
[2018-12-10 16:57] LABS: Glucose,Whole Blood 157 mg/dL (75-99)
[2018-12-10 17:14] LABS: Glucose,Whole Blood 159 mg/dL (75-99)
[2018-12-10] MEDS: HEPARIN SOD,PORK IN 0.45% NACL 25,000 UNIT in 0.45% NACL 1 250ML.BAG IV SCH (17:34)
[2018-12-10] MEDS: HEPARIN SODIUM,PORCINE 5,000 UNIT/ML 1 ML VIAL SQ SCH (17:35)
[2018-12-10 18:19] LABS: Glucose,Whole Blood 167 mg/dL (75-99)
[2018-12-10 19:50] LABS: Glucose,Whole Blood 204 mg/dL (75-99)
[2018-12-10 21:03] LABS: Glucose,Whole Blood 175 mg/dL (75-99)
[2018-12-10 21:58] LABS: Glucose,Whole Blood 134 mg/dL (75-99)
[2018-12-10 23:04] LABS: Glucose,Whole Blood 183 mg/dL (75-99)
[2018-12-10 23:59] LABS: Glucose,Whole Blood 177 mg/dL (75-99)
[2018-12-11] MEDS: methylPREDNISolone SOD SUCCI 125 MG/2 ML VIAL IV SCH ×4 (00:19→18:01)
[2018-12-11] MEDS: HEPARIN SODIUM,PORCINE 5,000 UNIT/ML 1 ML VIAL SQ SCH ×3 (00:19→16:21)
[2018-12-11] MEDS: NITROGLYCERIN OINT 1 INCH/GM PACKET TOPICAL SCH ×2 (00:19→08:06)
[2018-12-11 00:57] LABS: Glucose,Whole Blood 142 mg/dL (75-99)
[2018-12-11 02:09] LABS: Glucose,Whole Blood 105 mg/dL (75-99)
[2018-12-11 03:13] LABS: Glucose,Whole Blood 133 mg/dL (75-99)
[2018-12-11 04:06] LABS: Glucose,Whole Blood 190 mg/dL (75-99)
[2018-12-11] MEDS: INSULIN REGULAR 100 UNIT in SODIUM CHLORIDE 0.9% 100 ML IV SCH ×2 (04:26→15:11)
[2018-12-11 04:46] LABS: Basophils # (A) 0.1 k/uL (0-0.2); Basophils % (A) 0 %; Eosinophils % (A) 0 %; HCT 29.9 % (39.0-53.0); HGB 9.8 gm/dL (13.0-17.5); Lymphocytes # (A) 0.4 k/uL (1.0-4.8); Lymphocytes % (A) 3 %; MCH 29.6 pg (25.0-35.0); MCHC 32.8 g/dL (31.0-37.0); MCV 90.4 fL (80.0-100.0); Mean Platelet Volume 6.6; Monocytes # (A) 0.5 k/uL (0-1.0); Monocytes % (A) 4 %; Neutrophils # (A) 12.7 k/uL (1.3-7.7); Neutrophils % (A) 91 %; Platelet Count 412 k/uL (150-450); RDW 12.5 % (11.5-15.5)
[2018-12-11 04:50] LABS: Prothrombin Time 10.9 sec (9.0-12.0)
[2018-12-11] MEDS ORDERED: PHENYLEPHRINE-0.9% NACL SYG 1 MG/10 ML SYRINGE IV ONE ×4 (05:00)
[2018-12-11] MEDS ORDERED: SODIUM BICARB 8.4% 50 ML SYR (1 MEQ/ML) IV ONE (05:00)
[2018-12-11] MEDS ORDERED: CARDIOPLEGIC SOLN (K+ 16 MEQ/L 1,000 ML with SOD BICARB SYR 8.4% (1 MEQ/ML) 20 ML, LIDO... PERFUSION NR ×3 (05:00)
[2018-12-11] MEDS ORDERED: LACTATED RINGERS 1,000 ML IV SCH (05:00)
[2018-12-11] MEDS ORDERED: PHENYLEPHRINE 40 MG in SODIUM CHLORIDE 0.9% 250 ML IV ONE (05:00)
[2018-12-11] MEDS ORDERED: PROPOFOL 1,000 MG in EMPTY BAG 1 BAG IV ONE (05:00)
[2018-12-11] MEDS ORDERED: PROTAMINE SULFATE 10 MG/ML 25 ML VIAL IV ONE (05:00)
[2018-12-11] MEDS ORDERED: MANNITOL 25% 12.5 GM/50 ML VIAL IV ONE ×2 (05:00)
[2018-12-11] MEDS ORDERED: NITROGLYCERIN-D5W PMX 25 MG/250 ML BTL IV ONE (05:00)
[2018-12-11] MEDS ORDERED: MAGNESIUM SULFATE SYG 4.06 MEQ/ML SYRINGE IV ONE (05:00)
[2018-12-11] MEDS ORDERED: ceFAZolin 2,000 MG in SODIUM CHLORIDE 0.9% 30 ML IVPB ONE (05:00)
[2018-12-11] MEDS ORDERED: ceFAZolin 1,000 MG in SODIUM CHLORIDE 0.9% IRRIGATIO 1,000 ML IRRIGATION ONE (05:00)
[2018-12-11] MEDS ORDERED: NOREPINEPHRINE 4 MG in SODIUM CHLORIDE 0.9% 250 ML IV SCH (05:00)
[2018-12-11] MEDS ORDERED: CALCIUM CHLORIDE 100 MG/ML 10 ML SYRINGE IVP ONE (05:00)
[2018-12-11] MEDS ORDERED: PAPAVERINE 360 MG in SODIUM CHLORIDE 0.9% 90 ML IV ONE (05:00)
[2018-12-11] MEDS ORDERED: PROTAMINE SULFATE 250 MG in EMPTY BAG 1 BAG IV ONE (05:00)
[2018-12-11] MEDS ORDERED: ALBUMIN HUMAN 25% 50 ML in EMPTY BAG 1 BAG IVPB ONE (05:00)
[2018-12-11] MEDS ORDERED: HEPARIN SODIUM 1,000 UN/ML (10ML VL) IV ONE (05:00)
[2018-12-11] MEDS ORDERED: ceFAZolin 2 GM in SODIUM CHLORIDE 0.9% 30 ML IVPB ONE (05:00)
[2018-12-11] MEDS ORDERED: INSULIN REGULAR 100 UNIT in SODIUM CHLORIDE 0.9% 100 ML IV ONE (05:00)
[2018-12-11] MEDS ORDERED: ALBUMIN HUMAN 5% 500 ML in EMPTY BAG 1 BAG IVPB ONE ×6 (05:00)
[2018-12-11] MEDS ORDERED: METOPROLOL TARTRATE 12.5 MG TAB PO ONE (05:00)
[2018-12-11] MEDS ORDERED: TRANEXAMIC ACID 2,000 MG in SODIUM CHLORIDE 0.9% 180 ML IV ONE (05:00)
[2018-12-11] MEDS ORDERED: HEPARIN SODIUM,PORCINE 5,000 UNIT in SODIUM CHLORIDE 0.9% 500 ML 500 ML IV ONE (05:00)
[2018-12-11] MEDS ORDERED: ASPIRIN 325 MG TAB PO ONE (05:00)
[2018-12-11] MEDS ORDERED: ATORVASTATIN 10 MG TAB PO ONE (05:00)
[2018-12-11] MEDS ORDERED: CLEVIDIPINE BUTYRATE 25 MG in EMPTY BAG 1 BAG IV ONE (05:00)
[2018-12-11] MEDS ORDERED: CHLORHEXIDINE GLUCONATE 15 ML CUP MUCOUS MEM ONE (05:00)
[2018-12-11] MEDS ORDERED: NITROGLYCERIN-D5W PMX 50 MG in DEXTROSE/WATER 1 250ML.BAG IV ONE (05:00)
[2018-12-11 05:02] LABS: Potassium 4.8 mmol/L (3.5-5.1)
[2018-12-11 05:02] LABS: Glucose,Whole Blood 224 mg/dL (75-99)
[2018-12-11 06:04] LABS: Glucose,Whole Blood 182 mg/dL (75-99)
[2018-12-11] MEDS: LEVOTHYROXINE 75 MCG TAB PO SCH (06:04)
[2018-12-11 07:01] LABS: Glucose,Whole Blood 138 mg/dL (75-99)
[2018-12-11] MEDS: IPRATROPIUM-ALBUTEROL 3 ML NEB INHALATION SCH ×4 (07:21→19:46)
[2018-12-11] MEDS: BUDESONIDE 1 MG/2 ML NEBU INHALATION SCH ×2 (07:21→19:45)
[2018-12-11] MEDS: FORMOTEROL FUMARATE 20 MCG/2 ML NEBU INHALATION SCH ×2 (07:21→19:46)
[2018-12-11] MEDS: PANTOPRAZOLE 40 MG TABLET PO SCH (07:54)
[2018-12-11] MEDS: FUROSEMIDE 10 MG/ML 4 ML VIAL IV SCH (08:06)
[2018-12-11] MEDS: ASPIRIN 325 MG TAB PO SCH (08:06)
[2018-12-11] MEDS: METOPROLOL SUCCINATE (ER) 25 MG TAB.ER.24H PO SCH (08:06)
[2018-12-11] MEDS: ATORVASTATIN 40 MG TAB PO SCH (08:06)
--- NOTE | 2018-12-11 08:09 | XR ---
EXAMINATION TYPE: XR chest 1V portable DATE OF EXAM: 12/11/2018 COMPARISON: 12/10/2018 INDICATION: Shortness of breath TECHNIQUE: Single frontal view of the chest is obtained. FINDINGS: The heart size is normal. The pulmonary vasculature is prominent. No suspicious focal consolidations are evident. Previous right lower lobe infiltrate is improving. IMPRESSION: 1. Prominent pulmonary vascular markings with improving infiltrate. Consider improving volume [facility]
[2018-12-11] MEDS: MUPIROCIN 2% OINT 22 GM TUBE TOPICAL SCH ×2 (08:19→21:07)
[2018-12-11 08:40] LABS: Glucose,Whole Blood 137 mg/dL (75-99)
--- NOTE | 2018-12-11 09:18 | P.ARTDOP ---
Arterial Doppler Bilateral radial artery studies: Date of studies: 12/09/2018. Reason for studies: Preop CABG. On Doppler assessment we see no significant right to left or segmental pressure gradients. On digital plethysmography with radial artery compression we find no significant pressure changes. Imaging shows the right to vary between 2 x 1.6 mm and 2 x 1.9 mm. The left measures between 1.8 x 1.5 and 2 x 1.9 mm Adequately collateralized radial arteries bilaterally. Neither radial artery is consistently above 2 mm.
[2018-12-11 09:29] LABS: Glucose,Whole Blood 191 mg/dL (75-99)
[2018-12-11 10:07] LABS: Glucose,Whole Blood 259 mg/dL (75-99)
[2018-12-11 11:07] LABS: Glucose,Whole Blood 281 mg/dL (75-99)
[2018-12-11 11:55] LABS: Glucose,Whole Blood 263 mg/dL (75-99)
--- NOTE | 2018-12-11 12:16 | CT ---
EXAMINATION TYPE: CT chest wo con DATE OF EXAM: 12/11/2018 COMPARISON: Chest x-ray today and older x-rays HISTORY: HTN Emergency, CHF, Hypoxia CT DLP: 446.6 mGycm. Automated Exposure Control for Dose Reduction was Utilized. TECHNIQUE: CT scan of the thorax is performed without IV contrast. FINDINGS: LUNGS: There are small left greater than right bilateral pleural effusions with associated compressiv e atelectasis and/or perhaps Limited consolidation as there are air bronchograms noted, left more pro minent than right. There are additional multifocal areas of groundglass opacity throughout the bilate ral upper lungs most prominent anteriorly suggesting alveolar edema and/or less likely infiltrates. N o pneumothorax is seen bilaterally. Tracheobronchial tree is patent. MEDIASTINUM: Lack of IV contrast is noted to limit evaluation for mediastinal and especially hilar ad enopathy. There is borderline enlarged right peritracheal lymph node measuring 1.5 x 1.0 cm axial jv ge 21. No cardiomegaly is seen. There is small pericardial effusion anteriorly inferiorly axial jv ge 46 through 48 measuring up to 10 mm in thickness. There is severe three-vessel coronary artery sherif cification OTHER: Small degree of bilateral gynecomastia is noted. Mild calcified plaque of aorta is most promin ent in abdominal infrarenal level. Moderate to severe multilevel anterior and lateral spurring in the mid to lower thoracic spine is present. IMPRESSION: Suspect fluid overload state as there are small left greater than right pleural effusions and multifocal areas of mild alveolar edema bilaterally felt present. Underlying areas of acute infi ltrate are not excluded. Correlate clinically.
--- NOTE | 2018-12-11 13:11 | P.PN ---
Subjective Progress note being dictated for Dr. Sanchez Interval history:68-year-old admitted secondary to non-ST elevation myocardial infarction acute congestive heart failure secondary to myocardial infarction patient underwent cardiac catheterization found to have two-vessel disease including LAD disease because of which cardiology is recommending coronary artery bypass grafting carotid thoracic surgery was consulted and they're planning on doing CABG and Sunday. Patient still has volume overload patient will be started on 40 IV twice a day of Lasix. Patient is still bit shot of breath requiring 4 L of oxygen via does have some wheezing on exam may be cardiac asthma but it if his oxygen requirements doesn't come down will start him on albuterol and Symbicort at that time. 12/09/2018 Patient is still wheezing quite a bit with rhonchus breath sounds crackles Lasix will be continued daily probably need to switch him to oral Lasix cut down the Lasix tomorrow. Patient was started on systemic steroids by infectious disease is pedal edema improved but still requiring 4 L of oxygen. 12/10/2018 initially scheduled for CABG tomorrow. Postponed secondary to pulmonary status. Remains wheezy with congested cough. Poor FEV1 , less than 30%.maintaining low to mid 90s on 3 L nasal cannula.Maintained on nebulized bronchodilators, Perforomist, Pulmicort, IV steroids, Lasix IV push. 24-hour I &O reflecting a negative fluid balance.Chest x-ray reporting persistent bilateral reticular interstitial edema and/or infiltrates with developing focal bilateral infrahilar alveolar edema. Currently denies chest pain or palpitations. Maintained on heparin drip. Blood sugars controlled on insulin drip. Creatinine 1.31. Constitutional: Denied any fatigue denied any fever. Cardio vascular: denied any chest pain, palpitations Gastrointestinal denied any nausea vomiting Pulmonary: As mentioned in the interval history Neurologic denied any new focal deficits Active Medications Albuterol/Ipratropium (Duoneb 0.5 Mg-3 Mg/3 Ml Soln) 3 ml INHALATION RT-QID PRN PRN Reason: Shortness Of Breath Or Wheezing Albuterol/Ipratropium (Duoneb 0.5 Mg-3 Mg/3 Ml Soln) 3 ml INHALATION RT-QID [facility] Last Admin: 12/10/18 16:17 Dose: 3 ml Aspirin (Aspirin) 325 mg PO DAILY [facility] Last Admin: 12/10/18 08:57 Dose: 325 mg Atorvastatin Calcium (Lipitor) 40 mg PO DAILY [facility] Last Admin: 12/10/18 08:57 Dose: 40 mg Budesonide (Pulmicort) 1 mg INHALATION RT-BID [facility] Last Admin: 12/10/18 07:46 Dose: 1 mg Fluvoxamine Maleate (Luvox) 50 mg PO DAILY [facility] Last Admin: 12/10/18 08:58 Dose: 50 mg Formoterol Fumarate (Perforomist) 20 mcg INHALATION RT-BID [facility] Last Admin: 12/10/18 07:46 Dose: 20 mcg Furosemide (Lasix) 40 mg IV BID [facility] Last Admin: 12/10/18 08:59 Dose: 40 mg Guaifenesin/Codeine Phosphate (Robitussin Ac) 10 ml PO Q6H PRN PRN Reason: Cough Last Admin: 12/08/18 21:22 Dose: 10 ml Heparin Sodium (Porcine) (Heparin) 5,000 unit SQ Q8HR [facility] Insulin Human Regular 100 unit (/ Sodium Chloride) 101 mls @ 0 mls/hr IV .Q0M [facility]; Protocol Last Titration: 12/10/18 11:14 Dose: 5 mls/hr, 5 mls/hr Levothyroxine Sodium (Synthroid) 75 mcg PO 0630 [facility] Last Admin: 12/10/18 05:25 Dose: 75 mcg Methylprednisolone Sodium Succinate (Solu-Medrol) 60 mg IV Q6HR [facility] Last Admin: 12/10/18 12:14 Dose: 60 mg Metoprolol Succinate (Toprol Xl) 25 mg PO DAILY [facility] Last Admin: 12/10/18 08:56 Dose: 25 mg Mupirocin (Bactroban Oint) 1 applic TOPICAL BID [facility] Last Admin: 12/10/18 08:59 Dose: 1 applic Naloxone HCl (Narcan) 0.2 mg IV Q2M PRN PRN Reason: Opioid Reversal Nitroglycerin (Nitro-Bid Oint) 1 inch TOPICAL Q8HR [facility] Last Admin: 12/10/18 16:21 Dose: 1 inch Pantoprazole Sodium (Protonix) 40 mg PO AC-BRKFST [facility] Last Admin: 12/10/18 08:58 Dose: 40 mg Objective - Vital Signs Vital signs: Vital Signs Temp 97.5 F L 12/10/18 12:00 Pulse 80 12/10/18 16:20 Resp 15 12/10/18 15:00 BP 115/53 12/10/18 15:00 Pulse Ox 96 12/10/18 15:00 Intake & Output 12/09/18 12/10/18 12/10/18 18:59 06:59 18:59 Intake Total 337.773 502.916 186.45 Output Total 1075 1542 1240 Balance -737.227 -1039.084 -1053.55 Weight 91.2 kg Intake: IV 240 280 170 0.9 KVO 240 280 170 Intake, IV Titration 97.773 222.916 16.45 Amount Heparin Sod,Pork in 0.45% 32.757 150.716 NaCl 25,000 unit In 0.45 % NaCl 1 250ml.bag @ 13 UNITS/KG/HR 12.29 mls/hr IV .[id number] [facility] Rx#: [id number] Insulin Regular 100 unit 65.016 72.20 16.45 In Sodium Chloride 0.9% 100 ml @ Per Protocol IV .Q0M [facility] Rx#:[id number] Output: Urine 1075 1542 1240 Other: Voiding Method Indwelling Catheter Indwelling Catheter Indwelling Catheter - Exam GENERAL: The patient is sitting up in a chair, alert and oriented x3, no acute distress. HEENT: Pupils are round and equally reacting to light. EOMI. No scleral icterus. No conjunctival pallor. Normocephalic, atraumatic. CARDIOVASCULAR: S1 and S2 present. Regular, No murmurs, rubs, or gallops. PULMONARY: Respiratory effort increased ,Bilateral bases diminished , Coarse Scattered rhonchi, diffuse expiratory wheezes ABDOMEN: Soft, nontender, nondistended, normoactive bowel sounds. No palpable organomegaly. MUSCULOSKELETAL: No joint swelling or deformity. EXTREMITIES: No cyanosis, clubbing, or pedal edema. NEUROLOGICAL: Gross neurological examination did not reveal any focal deficits. SKIN: No rashes. - Labs CBC & Chem 7: 12/11/18 04:23 12/11/18 04:23 Labs: Abnormal Lab Results - Last 24 Hours (Table) 12/09/18 12/09/18 12/09/18 Range/Units 17:30 18:04 19:00 WBC (3.8-10.6) k/uL RBC (4.30-5.90) m/uL Hgb (13.0-17.5) gm/dL Hct (39.0-53.0) % Neutrophils # (1.3-7.7) k/uL Lymphocytes # (1.0-4.8) k/uL APTT (22.0-30.0) sec ABG pH (7.35-7.45) ABG pO2 (83-108) mmHg ABG HCO3 (21-25) mmol/L ABG Total CO2 (19-24) mmol/L ABG O2 Saturation (94-97) % BUN (9-20) mg/dL Creatinine (0.66-1.25) mg/dL Glucose (74-99) mg/dL POC Glucose (mg/dL) 197 H 230 H 219 H (75-99) mg/dL Calcium (8.4-10.2) mg/dL Alkaline Phosphatase (38-126) U/L Total Protein (6.3-8.2) g/dL Albumin (3.5-5.0) g/dL Crossmatch 12/09/18 12/09/18 12/09/18 Range/Units 19:59 20:13 20:46 WBC (3.8-10.6) k/uL RBC (4.30-5.90) m/uL Hgb (13.0-17.5) gm/dL Hct (39.0-53.0) % Neutrophils # (1.3-7.7) k/uL Lymphocytes # (1.0-4.8) k/uL APTT 44.2 H (22.0-30.0) sec ABG pH (7.35-7.45) ABG pO2 (83-108) mmHg ABG HCO3 (21-25) mmol/L ABG Total CO2 (19-24) mmol/L ABG O2 Saturation (94-97) % BUN (9-20) mg/dL Creatinine (0.66-1.25) mg/dL Glucose (74-99) mg/dL POC Glucose (mg/dL) 261 H 174 H (75-99) mg/dL Calcium (8.4-10.2) mg/dL Alkaline Phosphatase (38-126) U/L Total Protein (6.3-8.2) g/dL Albumin (3.5-5.0) g/dL Crossmatch 12/09/18 12/09/18 12/10/18 Range/Units 22:13 23:08 00:42 WBC (3.8-10.6) k/uL RBC (4.30-5.90) m/uL Hgb (13.0-17.5) gm/dL Hct (39.0-53.0) % Neutrophils # (1.3-7.7) k/uL Lymphocytes # (1.0-4.8) k/uL APTT (22.0-30.0) sec ABG pH (7.35-7.45) ABG pO2 (83-108) mmHg ABG HCO3 (21-25) mmol/L ABG Total CO2 (19-24) mmol/L ABG O2 Saturation (94-97) % BUN (9-20) mg/dL Creatinine (0.66-1.25) mg/dL Glucose (74-99) mg/dL POC Glucose (mg/dL) 158 H 101 H 208 H (75-99) mg/dL Calcium (8.4-10.2) mg/dL Alkaline Phosphatase (38-126) U/L Total Protein (6.3-8.2) g/dL Albumin (3.5-5.0) g/dL Crossmatch 12/10/18 12/10/18 12/10/18 Range/Units 02:02 02:21 02:21 WBC 14.1 H (3.8-10.6) k/uL RBC 3.31 L (4.30-5.90) m/uL Hgb 9.9 L (13.0-17.5) gm/dL Hct 29.9 L (39.0-53.0) % Neutrophils # 13.1 H (1.3-7.7) k/uL Lymphocytes # 0.4 L (1.0-4.8) k/uL APTT (22.0-30.0) sec ABG pH (7.35-7.45) ABG pO2 (83-108) mmHg ABG HCO3 (21-25) mmol/L ABG Total CO2 (19-24) mmol/L ABG O2 Saturation (94-97) % BUN (9-20) mg/dL Creatinine (0.66-1.25) mg/dL Glucose (74-99) mg/dL POC Glucose (mg/dL) 177 H (75-99) mg/dL Calcium (8.4-10.2) mg/dL Alkaline Phosphatase (38-126) U/L Total Protein (6.3-8.2) g/dL Albumin (3.5-5.0) g/dL Crossmatch See Detail 12/10/18 12/10/18 12/10/18 Range/Units 02:21 02:21 03:20 WBC (3.8-10.6) k/uL RBC (4.30-5.90) m/uL Hgb (13.0-17.5) gm/dL Hct (39.0-53.0) % Neutrophils # (1.3-7.7) k/uL Lymphocytes # (1.0-4.8) k/uL APTT 99.2 H (22.0-30.0) sec ABG pH (7.35-7.45) ABG pO2 (83-108) mmHg ABG HCO3 (21-25) mmol/L ABG Total CO2 (19-24) mmol/L ABG O2 Saturation (94-97) % BUN 48 H (9-20) mg/dL Creatinine 1.31 H (0.66-1.25) mg/dL Glucose 149 H (74-99) mg/dL POC Glucose (mg/dL) 105 H (75-99) mg/dL Calcium 8.1 L (8.4-10.2) mg/dL Alkaline Phosphatase 37 L (38-126) U/L Total Protein 5.9 L (6.3-8.2) g/dL Albumin 3.0 L (3.5-5.0) g/dL Crossmatch 12/10/18 12/10/18 12/10/18 Range/Units 05:11 06:00 07:04 WBC (3.8-10.6) k/uL RBC (4.30-5.90) m/uL Hgb (13.0-17.5) gm/dL Hct (39.0-53.0) % Neutrophils # (1.3-7.7) k/uL Lymphocytes # (1.0-4.8) k/uL APTT (22.0-30.0) sec ABG pH (7.35-7.45) ABG pO2 (83-108) mmHg ABG HCO3 (21-25) mmol/L ABG Total CO2 (19-24) mmol/L ABG O2 Saturation (94-97) % BUN (9-20) mg/dL Creatinine (0.66-1.25) mg/dL Glucose (74-99) mg/dL POC Glucose (mg/dL) 167 H 183 H 143 H (75-99) mg/dL Calcium (8.4-10.2) mg/dL Alkaline Phosphatase (38-126) U/L Total Protein (6.3-8.2) g/dL Albumin (3.5-5.0) g/dL Crossmatch 12/10/18 12/10/18 12/10/18 Range/Units 08:13 09:16 09:58 WBC (3.8-10.6) k/uL RBC (4.30-5.90) m/uL Hgb (13.0-17.5) gm/dL Hct (39.0-53.0) % Neutrophils # (1.3-7.7) k/uL Lymphocytes # (1.0-4.8) k/uL APTT (22.0-30.0) sec ABG pH 7.48 H (7.35-7.45) ABG pO2 51 L* (83-108) mmHg ABG HCO3 28 H (21-25) mmol/L ABG Total CO2 29 H (19-24) mmol/L ABG O2 Saturation 89.0 L (94-97) % BUN (9-20) mg/dL Creatinine (0.66-1.25) mg/dL Glucose (74-99) mg/dL POC Glucose (mg/dL) 138 H 181 H (75-99) mg/dL Calcium (8.4-10.2) mg/dL Alkaline Phosphatase (38-126) U/L Total Protein (6.3-8.2) g/dL Albumin (3.5-5.0) g/dL Crossmatch 12/10/18 12/10/18 12/10/18 Range/Units 10:22 10:26 11:12 WBC (3.8-10.6) k/uL RBC (4.30-5.90) m/uL Hgb (13.0-17.5) gm/dL Hct (39.0-53.0) % Neutrophils # (1.3-7.7) k/uL Lymphocytes # (1.0-4.8) k/uL APTT 69.6 H (22.0-30.0) sec ABG pH (7.35-7.45) ABG pO2 (83-108) mmHg ABG HCO3 (21-25) mmol/L ABG Total CO2 (19-24) mmol/L ABG O2 Saturation (94-97) % BUN (9-20) mg/dL Creatinine (0.66-1.25) mg/dL Glucose (74-99) mg/dL POC Glucose (mg/dL) 199 H 178 H (75-99) mg/dL Calcium (8.4-10.2) mg/dL Alkaline Phosphatase (38-126) U/L Total Protein (6.3-8.2) g/dL Albumin (3.5-5.0) g/dL Crossmatch 12/10/18 12/10/18 12/10/18 Range/Units 12:07 13:22 14:21 WBC (3.8-10.6) k/uL RBC (4.30-5.90) m/uL Hgb (13.0-17.5) gm/dL Hct (39.0-53.0) % Neutrophils # (1.3-7.7) k/uL Lymphocytes # (1.0-4.8) k/uL APTT (22.0-30.0) sec ABG pH (7.35-7.45) ABG pO2 (83-108) mmHg ABG HCO3 (21-25) mmol/L ABG Total CO2 (19-24) mmol/L ABG O2 Saturation (94-97) % BUN (9-20) mg/dL Creatinine (0.66-1.25) mg/dL Glucose (74-99) mg/dL POC Glucose (mg/dL) 162 H 166 H 171 H (75-99) mg/dL Calcium (8.4-10.2) mg/dL Alkaline Phosphatase (38-126) U/L Total Protein (6.3-8.2) g/dL Albumin (3.5-5.0) g/dL Crossmatch 12/10/18 12/10/18 Range/Units 15:00 16:04 WBC (3.8-10.6) k/uL RBC (4.30-5.90) m/uL Hgb (13.0-17.5) gm/dL Hct (39.0-53.0) % Neutrophils # (1.3-7.7) k/uL Lymphocytes # (1.0-4.8) k/uL APTT (22.0-30.0) sec ABG pH (7.35-7.45) ABG pO2 (83-108) mmHg ABG HCO3 (21-25) mmol/L ABG Total CO2 (19-24) mmol/L ABG O2 Saturation (94-97) % BUN (9-20) mg/dL Creatinine (0.66-1.25) mg/dL Glucose (74-99) mg/dL POC Glucose (mg/dL) 174 H 167 H (75-99) mg/dL Calcium (8.4-10.2) mg/dL Alkaline Phosphatase (38-126) U/L Total Protein (6.3-8.2) g/dL Albumin (3.5-5.0) g/dL Crossmatch Assessment and Plan Assessment: Acute non-ST elevation myocardial infarction, status post cardiac cath with severe 2 vessel CAD, CABG pending -Acute hypoxic respiratory failure secondary to Acute systolic Congestive heart failure -Acute exacerbation COPD, poor FEV1,< 30% -Acute renal failure ,prerenal azotemia secondary to CHF -Possible chronic kidney disease from diabetic nephropathy -Diabetes mellitus II -Hyperlipidemia -Hypertension -Hypothyroidism -PTSD and bipolar disorder -Nicotine dependence The impression and plan of care has been dictated as directed. As mentioned above given patient's current pulmonary status, CABG postponed. Continue nebulized bronchodilators, Perforomist,Pulmicort, IV push steroids, IV push Lasix. Maintain insulin drip with close monitoring of Accu-Cheks. Close monitoring of renal function with repeat labs ordered for a.m. follow closely with multiple consults. Further recommendations to follow. : I performed a history and examination of this patient, discussed the same with the dictator. I agree with the dictator's note ,documented as a scribe. Any additional findings or plans will be noted.
[2018-12-11] MEDS: ISOSORBIDE MONONITRATE ER 30 MG TAB.ER.24H PO SCH (13:15)
[2018-12-11] MEDS: LISINOPRIL 2.5 MG TAB PO SCH (13:15)
--- NOTE | 2018-12-11 13:52 | CONS ---
CONSULTATION Faisal is a 68-year-old gentleman who was admitted to hospital with acute myocardial infarction, ischemic cardiomyopathy with severe LV dysfunction and pulmonary edema. He was to undergo bypass surgery, but still has poor respiratory status. This morning, he appears comfortable at rest, free of cardiac symptoms. I stopped his IV heparin yesterday. He is currently on aspirin, Lipitor, Lasix 40 b.i.d. which I am going to cut down to 20 p.o. b.i.d. as he has significant renal azotemia, Imdur 30 mg daily, Toprol 25 mg daily. I am going to start him on Zestril 2.5 mg daily. PHYSICAL EXAM: Comfortable at rest. Vital signs are stable. Chest exam reveals occasional rhonchi bilaterally. Heart exam reveals first and second heart sounds. No gallop. Abdomen is soft. Exam of the extremities did not reveal any edema. Peripheral pulses are felt. LABS: Show that the hemoglobin is 9.8, platelet count is 412. Potassium is 4.8, creatinine is 1.3. ASSESSMENT: Acute myocardial infarction, severe 2 vessel coronary artery disease, ischemic cardiomyopathy with pulmonary edema. PLAN: Patient will undergo bypass surgery once his respiratory status is stable. MMODL / IJN: [id number] /
[2018-12-11 14:07] LABS: Glucose,Whole Blood 225 mg/dL (75-99)
[2018-12-11 15:17] LABS: Glucose,Whole Blood 149 mg/dL (75-99)
--- NOTE | 2018-12-11 15:59 | P.PN ---
Subjective Progress Note Date: 12/11/18 On 12/11/2018, the patient is still having some difficulty breathing. We are in the process of optimizing the COPD prior to considering cardiac surgery on this patient. I thought that the patient carries a very high risk of postoperative pulmonary complications including respiratory failure, intubation mechanical ventilation and tracheostomy tube insertion based on his limited lung capacity and ongoing COPD. He is a chronic smoker. He is based on FEV1 is been less than 30%. On today's chest x-ray there is still some increase the distal markings bilaterally despite this patient receiving diuretics. The CAT scan of the chest was done without contrast and the CAT scan showed small left and slightly larger right-sided lateral pleural effusion along with compressive atelectatic changes in lung bases. Some limited air bronchograms seen more prominent on the left compared to the right. Additional multifocal areas of groundglass opacity seen bilaterally in the upper lungs suggestive of alveolar edema. No pneumothorax. The tracheal bronchial tree was open and patent. There was a right paratracheal lymph node measuring 1.5 cm. No cardiomegaly. There is supple vessel coronary calcification. Mildly calcified aorta. No lung masses or lesions. Patient is on DuoNeb nebulized treatments around the clock. The patient is receiving a combination of Perforomist and Pulmicort neb last treatment twice a day. The patient on IV Solu-Medrol. The patient is receiving oral Lasix. Creatinine is at 1.4 on today's evaluation. He is using incentive spirometer. He is pulling only 750 on today's evaluation. No chest pain for today. Objective - Vital Signs Vital signs: Vital Signs Temp 97.6 F 12/11/18 08:00 Pulse 82 12/11/18 15:23 Resp 20 12/11/18 12:00 BP 136/70 12/11/18 12:00 Pulse Ox 94 L 12/11/18 12:00 Intake & Output 12/10/18 12/11/18 12/11/18 18:59 06:59 18:59 Intake Total 221.283 164.433 167.951 Output Total 1240 1445 1210 Balance -1018.717 -1280.567 -1042.049 Weight 88.8 kg 88.8 kg Intake: IV 170 110 90 0.9 KVO 170 110 90 Intake, IV Titration 51.283 54.433 77.951 Amount Insulin Regular 100 unit 51.283 54.433 77.951 In Sodium Chloride 0.9% 100 ml @ Per Protocol IV .Q0M [facility] Rx#:[id number] Output: Urine 1240 1445 1210 Other: Voiding Method Indwelling Catheter Indwelling Catheter Indwelling Catheter - Exam GENERAL EXAM: Alert, pleasant, 68-year-old white male comfortable in no apparent distress. HEAD: Normocephalic/atraumatic. EYES: Normal reaction of pupils, equal size. Conjunctiva pink, sclera white. NOSE: Clear with pink turbinates. THROAT: No erythema or exudates. NECK: No masses, no JVD, no thyroid enlargement, no adenopathy. CHEST: No chest wall deformity. Symmetrical expansion. LUNGS: Equal air entry with diffuse wheezes posteriorly and a few scattered rhonchi CVS: Regular rate and rhythm, normal S1 and S2, no gallops, no murmurs, no rubs ABDOMEN: Soft, nontender. No hepatosplenomegaly, normal bowel sounds, no guarding or rigidity. EXTREMITIES: No clubbing, no edema, no cyanosis, 2+ pulses and upper and lower extremities. MUSCULOSKELETAL: Muscle strength and tone normal. SPINE: No scoliosis or deformity SKIN: No rashes CENTRAL NERVOUS SYSTEM: Alert and oriented -3. No focal deficits, tone is normal in all 4 extremities. PSYCHIATRIC: Alert and oriented -3. Appropriate affect. Intact judgment and insight. - Labs CBC & Chem 7: 12/11/18 04:23 12/11/18 04:23 Labs: Abnormal Lab Results - Last 24 Hours (Table) 12/10/18 12/10/18 12/10/18 Range/Units 16:04 16:43 17:11 WBC (3.8-10.6) k/uL RBC (4.30-5.90) m/uL Hgb (13.0-17.5) gm/dL Hct (39.0-53.0) % Neutrophils # (1.3-7.7) k/uL Lymphocytes # (1.0-4.8) k/uL BUN (9-20) mg/dL Creatinine (0.66-1.25) mg/dL Glucose (74-99) mg/dL POC Glucose (mg/dL) 167 H 157 H 159 H (75-99) mg/dL Calcium (8.4-10.2) mg/dL 12/10/18 12/10/18 12/10/18 Range/Units 18:15 19:46 21:00 WBC (3.8-10.6) k/uL RBC (4.30-5.90) m/uL Hgb (13.0-17.5) gm/dL Hct (39.0-53.0) % Neutrophils # (1.3-7.7) k/uL Lymphocytes # (1.0-4.8) k/uL BUN (9-20) mg/dL Creatinine (0.66-1.25) mg/dL Glucose (74-99) mg/dL POC Glucose (mg/dL) 167 H 204 H 175 H (75-99) mg/dL Calcium (8.4-10.2) mg/dL 12/10/18 12/10/18 12/10/18 Range/Units 21:55 23:01 23:56 WBC (3.8-10.6) k/uL RBC (4.30-5.90) m/uL Hgb (13.0-17.5) gm/dL Hct (39.0-53.0) % Neutrophils # (1.3-7.7) k/uL Lymphocytes # (1.0-4.8) k/uL BUN (9-20) mg/dL Creatinine (0.66-1.25) mg/dL Glucose (74-99) mg/dL POC Glucose (mg/dL) 134 H 183 H 177 H (75-99) mg/dL Calcium (8.4-10.2) mg/dL 12/11/18 12/11/18 12/11/18 Range/Units 00:56 02:06 03:10 WBC (3.8-10.6) k/uL RBC (4.30-5.90) m/uL Hgb (13.0-17.5) gm/dL Hct (39.0-53.0) % Neutrophils # (1.3-7.7) k/uL Lymphocytes # (1.0-4.8) k/uL BUN (9-20) mg/dL Creatinine (0.66-1.25) mg/dL Glucose (74-99) mg/dL POC Glucose (mg/dL) 142 H 105 H 133 H (75-99) mg/dL Calcium (8.4-10.2) mg/dL 12/11/18 12/11/18 12/11/18 Range/Units 04:02 04:23 04:23 WBC 14.0 H (3.8-10.6) k/uL RBC 3.30 L (4.30-5.90) m/uL Hgb 9.8 L (13.0-17.5) gm/dL Hct 29.9 L (39.0-53.0) % Neutrophils # 12.7 H (1.3-7.7) k/uL Lymphocytes # 0.4 L (1.0-4.8) k/uL BUN 50 H (9-20) mg/dL Creatinine 1.31 H (0.66-1.25) mg/dL Glucose 208 H (74-99) mg/dL POC Glucose (mg/dL) 190 H (75-99) mg/dL Calcium 8.0 L (8.4-10.2) mg/dL 12/11/18 12/11/18 12/11/18 Range/Units 04:59 06:02 06:58 WBC (3.8-10.6) k/uL RBC (4.30-5.90) m/uL Hgb (13.0-17.5) gm/dL Hct (39.0-53.0) % Neutrophils # (1.3-7.7) k/uL Lymphocytes # (1.0-4.8) k/uL BUN (9-20) mg/dL Creatinine (0.66-1.25) mg/dL Glucose (74-99) mg/dL POC Glucose (mg/dL) 224 H 182 H 138 H (75-99) mg/dL Calcium (8.4-10.2) mg/dL 12/11/18 12/11/18 12/11/18 Range/Units 08:13 09:03 10:04 WBC (3.8-10.6) k/uL RBC (4.30-5.90) m/uL Hgb (13.0-17.5) gm/dL Hct (39.0-53.0) % Neutrophils # (1.3-7.7) k/uL Lymphocytes # (1.0-4.8) k/uL BUN (9-20) mg/dL Creatinine (0.66-1.25) mg/dL Glucose (74-99) mg/dL POC Glucose (mg/dL) 137 H 191 H 259 H (75-99) mg/dL Calcium (8.4-10.2) mg/dL 12/11/18 12/11/18 12/11/18 Range/Units 11:04 11:52 14:03 WBC (3.8-10.6) k/uL RBC (4.30-5.90) m/uL Hgb (13.0-17.5) gm/dL Hct (39.0-53.0) % Neutrophils # (1.3-7.7) k/uL Lymphocytes # (1.0-4.8) k/uL BUN (9-20) mg/dL Creatinine (0.66-1.25) mg/dL Glucose (74-99) mg/dL POC Glucose (mg/dL) 281 H 263 H 225 H (75-99) mg/dL Calcium (8.4-10.2) mg/dL 12/11/18 Range/Units 15:09 WBC (3.8-10.6) k/uL RBC (4.30-5.90) m/uL Hgb (13.0-17.5) gm/dL Hct (39.0-53.0) % Neutrophils # (1.3-7.7) k/uL Lymphocytes # (1.0-4.8) k/uL BUN (9-20) mg/dL Creatinine (0.66-1.25) mg/dL Glucose (74-99) mg/dL POC Glucose (mg/dL) 149 H (75-99) mg/dL Calcium (8.4-10.2) mg/dL Assessment and Plan Plan: Assessment: #1. Acute non-ST elevated myocardial infarction, currently free of any chest pain however the patient is awaiting cardiac bypass surgery. #2. Severe 2-vessel coronary artery disease, patient had a 70 to 80% percent occlusion of the circumflex coronary artery, 70-80% lesion in the obtuse marginal 2, and 95% lesion in the LAD, has been evaluated by CT surgery, and bypass surgery scheduled but the postponed because of his active COPD and ongoing respiratory difficulties with bronchospasm wheezing and mucus production secondary to COPD. CAT scan of the chest is also showing CHF and interstitial edema. The patient is still being optimized prior to being considered for cardiac bypass surgery. #3. Acute hypoxemic respiratory failure secondary to acute exacerbation of congestive heart failure, with systolic dysfunction #4. Hypertension #5. Hypothyroid #6. Diabetes mellitus type 2 #7. Suspect underlying chronic obstructive pulmonary disease, and bedside spirometry is poor with an FEV1 of less than 30% of predicted. #8. Nicotine dependence, patient carries over 50 years of smoking history of less then a pack a day Plan The patient is still doing poorly. Recovery is slow. Continue bronchodilators. Continue IV Solu Medrol. Repeat spirometer. Continue using incentive spirometer. Increased level of activity as tolerated. Continue diuretics. CAT scan of the chest was reviewed. Discussed the case with CT surgery and the patient will be awaiting for his surgery till is further optimized. We'll continue to follow.
[2018-12-11] MEDS: FUROSEMIDE 20 MG TAB PO SCH (16:21)
[2018-12-11 16:33] LABS: Glucose,Whole Blood 114 mg/dL (75-99)
[2018-12-11 17:23] LABS: Glucose,Whole Blood 140 mg/dL (75-99)
[2018-12-11 18:10] LABS: Glucose,Whole Blood 194 mg/dL (75-99)
--- NOTE | 2018-12-11 19:22 | P.PN ---
Subjective Progress Note Date: 12/11/18 Progress note being dictated for Dr. Sanchez Interval history:68-year-old admitted secondary to non-ST elevation myocardial infarction acute congestive heart failure secondary to myocardial infarction patient underwent cardiac catheterization found to have two-vessel disease including LAD disease because of which cardiology is recommending coronary artery bypass grafting carotid thoracic surgery was consulted and they're planning on doing CABG and Sunday. Patient still has volume overload patient will be started on 40 IV twice a day of Lasix. Patient is still bit shot of breath requiring 4 L of oxygen via does have some wheezing on exam may be cardiac asthma but it if his oxygen requirements doesn't come down will start him on albuterol and Symbicort at that time. 12/09/2018 Patient is still wheezing quite a bit with rhonchus breath sounds crackles Lasix will be continued daily probably need to switch him to oral Lasix cut down the Lasix tomorrow. Patient was started on systemic steroids by infectious disease is pedal edema improved but still requiring 4 L of oxygen. 12/10/2018 initially scheduled for CABG tomorrow. Postponed secondary to pulmonary status. Remains wheezy with congested cough. Poor FEV1 , less than 30%.maintaining low to mid 90s on 3 L nasal cannula.Maintained on nebulized bronchodilators, Perforomist, Pulmicort, IV steroids, Lasix IV push. 24-hour I &O reflecting a negative fluid balance.Chest x-ray reporting persistent bilateral reticular interstitial edema and/or infiltrates with developing focal bilateral infrahilar alveolar edema. Currently denies chest pain or palpitations. Maintained on heparin drip. Blood sugars controlled on insulin drip. Creatinine 1.31. 12/11/2018 Continues on nebulized bronchodilators, steroids, Lasix, Perforomist , Pulmicort.Pulmonary status unchanged, incentive spirometer less than 1000. Chest x-ray reporting prominent pulmonary vascular markings, improving infiltrate. Chest CT performed reporting fluid overload, small left greater than right pleural effusions, multifocal areas of bilateral mild alveolar edema , possible, possible underlying areas of acute infiltrate. Continues on insulin drip. Denies chest pain, palpitations. Creatinine unchanged. Constitutional: Denied any fatigue denied any fever. Cardio vascular: denied any chest pain, palpitations Gastrointestinal denied any nausea vomiting Pulmonary: As mentioned in the interval history Neurologic denied any new focal deficits Active Medications Albuterol/Ipratropium (Duoneb 0.5 Mg-3 Mg/3 Ml Soln) 3 ml INHALATION RT-QID PRN PRN Reason: Shortness Of Breath Or Wheezing Albuterol/Ipratropium (Duoneb 0.5 Mg-3 Mg/3 Ml Soln) 3 ml INHALATION RT-QID [facility] Last Admin: 12/10/18 16:17 Dose: 3 ml Aspirin (Aspirin) 325 mg PO DAILY [facility] Last Admin: 12/10/18 08:57 Dose: 325 mg Atorvastatin Calcium (Lipitor) 40 mg PO DAILY [facility] Last Admin: 12/10/18 08:57 Dose: 40 mg Budesonide (Pulmicort) 1 mg INHALATION RT-BID [facility] Last Admin: 12/10/18 07:46 Dose: 1 mg Fluvoxamine Maleate (Luvox) 50 mg PO DAILY [facility] Last Admin: 12/10/18 08:58 Dose: 50 mg Formoterol Fumarate (Perforomist) 20 mcg INHALATION RT-BID [facility] Last Admin: 12/10/18 07:46 Dose: 20 mcg Furosemide (Lasix) 40 mg IV BID [facility] Last Admin: 12/10/18 08:59 Dose: 40 mg Guaifenesin/Codeine Phosphate (Robitussin Ac) 10 ml PO Q6H PRN PRN Reason: Cough Last Admin: 12/08/18 21:22 Dose: 10 ml Heparin Sodium (Porcine) (Heparin) 5,000 unit SQ Q8HR [facility] Insulin Human Regular 100 unit (/ Sodium Chloride) 101 mls @ 0 mls/hr IV .Q0M [facility]; Protocol Last Titration: 12/10/18 11:14 Dose: 5 mls/hr, 5 mls/hr Levothyroxine Sodium (Synthroid) 75 mcg PO 0630 [facility] Last Admin: 12/10/18 05:25 Dose: 75 mcg Methylprednisolone Sodium Succinate (Solu-Medrol) 60 mg IV Q6HR [facility] Last Admin: 12/10/18 12:14 Dose: 60 mg Metoprolol Succinate (Toprol Xl) 25 mg PO DAILY [facility] Last Admin: 12/10/18 08:56 Dose: 25 mg Mupirocin (Bactroban Oint) 1 applic TOPICAL BID [facility] Last Admin: 12/10/18 08:59 Dose: 1 applic Naloxone HCl (Narcan) 0.2 mg IV Q2M PRN PRN Reason: Opioid Reversal Nitroglycerin (Nitro-Bid Oint) 1 inch TOPICAL Q8HR [facility] Last Admin: 12/10/18 16:21 Dose: 1 inch Pantoprazole Sodium (Protonix) 40 mg PO AC-BRKFST [facility] Last Admin: 12/10/18 08:58 Dose: 40 mg Objective - Vital Signs Vital signs: Vital Signs Temp 97.6 F 12/11/18 08:00 Pulse 81 12/11/18 12:00 Resp 21 12/11/18 09:00 BP 136/68 12/11/18 09:00 Pulse Ox 92 L 12/11/18 09:00 Intake & Output 12/10/18 12/11/18 12/11/18 18:59 06:59 18:59 Intake Total 221.283 164.433 83.334 Output Total 1240 1445 925 Balance -1018.717 -1280.567 -841.666 Weight 88.8 kg 88.8 kg Intake: IV 170 110 50 0.9 KVO 170 110 50 Intake, IV Titration 51.283 54.433 33.334 Amount Insulin Regular 100 unit 51.283 54.433 33.334 In Sodium Chloride 0.9% 100 ml @ Per Protocol IV .Q0M [facility] Rx#:[id number] Output: Urine 1240 1445 925 Other: Voiding Method Indwelling Catheter Indwelling Catheter Indwelling Catheter - Exam GENERAL: The patient is sitting up in a chair, alert and oriented x3, no acute distress. HEENT: Pupils are round and equally reacting to light. EOMI. No scleral icterus. No conjunctival pallor. Normocephalic, atraumatic. CARDIOVASCULAR: S1 and S2 present. Regular, No murmurs, rubs, or gallops. PULMONARY: Respiratory effort increased ,Bilateral bases diminished , Occasional Coarse Scattered rhonchi, diffuse expiratory wheezes ABDOMEN: Soft, nontender, nondistended, normoactive bowel sounds. No palpable organomegaly. MUSCULOSKELETAL: No joint swelling or deformity. EXTREMITIES: No cyanosis, clubbing, or pedal edema. NEUROLOGICAL: Gross neurological examination did not reveal any focal deficits. SKIN: No rashes. - Labs CBC & Chem 7: 12/11/18 04:23 12/11/18 04:23 Labs: Abnormal Lab Results - Last 24 Hours (Table) 12/10/18 12/10/18 12/10/18 Range/Units 13:22 14:21 15:00 WBC (3.8-10.6) k/uL RBC (4.30-5.90) m/uL Hgb (13.0-17.5) gm/dL Hct (39.0-53.0) % Neutrophils # (1.3-7.7) k/uL Lymphocytes # (1.0-4.8) k/uL BUN (9-20) mg/dL Creatinine (0.66-1.25) mg/dL Glucose (74-99) mg/dL POC Glucose (mg/dL) 166 H 171 H 174 H (75-99) mg/dL Calcium (8.4-10.2) mg/dL 12/10/18 12/10/18 12/10/18 Range/Units 16:04 16:43 17:11 WBC (3.8-10.6) k/uL RBC (4.30-5.90) m/uL Hgb (13.0-17.5) gm/dL Hct (39.0-53.0) % Neutrophils # (1.3-7.7) k/uL Lymphocytes # (1.0-4.8) k/uL BUN (9-20) mg/dL Creatinine (0.66-1.25) mg/dL Glucose (74-99) mg/dL POC Glucose (mg/dL) 167 H 157 H 159 H (75-99) mg/dL Calcium (8.4-10.2) mg/dL 12/10/18 12/10/18 12/10/18 Range/Units 18:15 19:46 21:00 WBC (3.8-10.6) k/uL RBC (4.30-5.90) m/uL Hgb (13.0-17.5) gm/dL Hct (39.0-53.0) % Neutrophils # (1.3-7.7) k/uL Lymphocytes # (1.0-4.8) k/uL BUN (9-20) mg/dL Creatinine (0.66-1.25) mg/dL Glucose (74-99) mg/dL POC Glucose (mg/dL) 167 H 204 H 175 H (75-99) mg/dL Calcium (8.4-10.2) mg/dL 12/10/18 12/10/18 12/10/18 Range/Units 21:55 23:01 23:56 WBC (3.8-10.6) k/uL RBC (4.30-5.90) m/uL Hgb (13.0-17.5) gm/dL Hct (39.0-53.0) % Neutrophils # (1.3-7.7) k/uL Lymphocytes # (1.0-4.8) k/uL BUN (9-20) mg/dL Creatinine (0.66-1.25) mg/dL Glucose (74-99) mg/dL POC Glucose (mg/dL) 134 H 183 H 177 H (75-99) mg/dL Calcium (8.4-10.2) mg/dL 12/11/18 12/11/18 12/11/18 Range/Units 00:56 02:06 03:10 WBC (3.8-10.6) k/uL RBC (4.30-5.90) m/uL Hgb (13.0-17.5) gm/dL Hct (39.0-53.0) % Neutrophils # (1.3-7.7) k/uL Lymphocytes # (1.0-4.8) k/uL BUN (9-20) mg/dL Creatinine (0.66-1.25) mg/dL Glucose (74-99) mg/dL POC Glucose (mg/dL) 142 H 105 H 133 H (75-99) mg/dL Calcium (8.4-10.2) mg/dL 12/11/18 12/11/18 12/11/18 Range/Units 04:02 04:23 04:23 WBC 14.0 H (3.8-10.6) k/uL RBC 3.30 L (4.30-5.90) m/uL Hgb 9.8 L (13.0-17.5) gm/dL Hct 29.9 L (39.0-53.0) % Neutrophils # 12.7 H (1.3-7.7) k/uL Lymphocytes # 0.4 L (1.0-4.8) k/uL BUN 50 H (9-20) mg/dL Creatinine 1.31 H (0.66-1.25) mg/dL Glucose 208 H (74-99) mg/dL POC Glucose (mg/dL) 190 H (75-99) mg/dL Calcium 8.0 L (8.4-10.2) mg/dL 12/11/18 12/11/18 12/11/18 Range/Units 04:59 06:02 06:58 WBC (3.8-10.6) k/uL RBC (4.30-5.90) m/uL Hgb (13.0-17.5) gm/dL Hct (39.0-53.0) % Neutrophils # (1.3-7.7) k/uL Lymphocytes # (1.0-4.8) k/uL BUN (9-20) mg/dL Creatinine (0.66-1.25) mg/dL Glucose (74-99) mg/dL POC Glucose (mg/dL) 224 H 182 H 138 H (75-99) mg/dL Calcium (8.4-10.2) mg/dL 12/11/18 12/11/18 12/11/18 Range/Units 08:13 09:03 10:04 WBC (3.8-10.6) k/uL RBC (4.30-5.90) m/uL Hgb (13.0-17.5) gm/dL Hct (39.0-53.0) % Neutrophils # (1.3-7.7) k/uL Lymphocytes # (1.0-4.8) k/uL BUN (9-20) mg/dL Creatinine (0.66-1.25) mg/dL Glucose (74-99) mg/dL POC Glucose (mg/dL) 137 H 191 H 259 H (75-99) mg/dL Calcium (8.4-10.2) mg/dL 12/11/18 12/11/18 Range/Units 11:04 11:52 WBC (3.8-10.6) k/uL RBC (4.30-5.90) m/uL Hgb (13.0-17.5) gm/dL Hct (39.0-53.0) % Neutrophils # (1.3-7.7) k/uL Lymphocytes # (1.0-4.8) k/uL BUN (9-20) mg/dL Creatinine (0.66-1.25) mg/dL Glucose (74-99) mg/dL POC Glucose (mg/dL) 281 H 263 H (75-99) mg/dL Calcium (8.4-10.2) mg/dL Assessment and Plan Assessment: Acute non-ST elevation myocardial infarction, status post cardiac cath with severe 2 vessel CAD, CABG pending -Acute hypoxic respiratory failure secondary to Acute systolic Congestive heart failure -Acute exacerbation COPD, poor FEV1,< 30% -Acute renal failure ,prerenal azotemia secondary to CHF -Possible chronic kidney disease from diabetic nephropathy -Diabetes mellitus II -Hyperlipidemia -Hypertension -Hypothyroidism -PTSD and bipolar disorder -Nicotine dependence The impression and plan of care has been dictated as directed. CABG on hold while stabilizing/optimizing pulmonary function. Maintain nebulized bronchodilators, Perforomist,Pulmicort, IV push steroids, IV push Lasix. Close monitoring of renal function with repeat labs ordered for a.m. Continue insulin drip with close monitoring of Accu-Cheks. Further recommendations to follow. : I performed a history and examination of this patient, discussed the same with the dictator. I agree with the dictator's note ,documented as a scribe. Any additional findings or plans will be noted.
[2018-12-11 20:14] LABS: Glucose,Whole Blood 176 mg/dL (75-99)
[2018-12-11 21:08] LABS: Glucose,Whole Blood 169 mg/dL (75-99)
[2018-12-11 22:14] LABS: Glucose,Whole Blood 114 mg/dL (75-99)
[2018-12-11 23:07] LABS: Glucose,Whole Blood 146 mg/dL (75-99)
[2018-12-11 23:42] LABS: Glucose,Whole Blood 189 mg/dL (75-99)
[2018-12-12] MEDS: methylPREDNISolone SOD SUCCI 125 MG/2 ML VIAL IV SCH ×4 (00:29→17:01)
[2018-12-12] MEDS: HEPARIN SODIUM,PORCINE 5,000 UNIT/ML 1 ML VIAL SQ SCH ×3 (00:29→16:56)
[2018-12-12] MEDS: INSULIN REGULAR 100 UNIT in SODIUM CHLORIDE 0.9% 100 ML IV SCH ×2 (00:30→21:00)
[2018-12-12 00:38] LABS: Glucose,Whole Blood 132 mg/dL (75-99)
[2018-12-12 01:22] LABS: Glucose,Whole Blood 116 mg/dL (75-99)
[2018-12-12 02:15] LABS: Glucose,Whole Blood 153 mg/dL (75-99)
[2018-12-12 03:21] LABS: Glucose,Whole Blood 149 mg/dL (75-99)
[2018-12-12 04:32] LABS: Glucose,Whole Blood 127 mg/dL (75-99)
[2018-12-12 04:52] LABS: Basophils % (A) 0 %; Eosinophils % (A) 0 %; HCT 28.9 % (39.0-53.0); HGB 9.3 gm/dL (13.0-17.5); Lymphocytes # (A) 0.4 k/uL (1.0-4.8); Lymphocytes % (A) 3 %; MCH 29.2 pg (25.0-35.0); MCHC 32.1 g/dL (31.0-37.0); MCV 91.2 fL (80.0-100.0); Mean Platelet Volume 6.4; Monocytes # (A) 0.5 k/uL (0-1.0); Monocytes % (A) 4 %; Neutrophils # (A) 11.3 k/uL (1.3-7.7); Neutrophils % (A) 92 %; Platelet Count 395 k/uL (150-450); RBC 3.17 m/uL (4.30-5.90); RDW 12.7 % (11.5-15.5); WBC 12.3 k/uL (3.8-10.6)
[2018-12-12 04:57] LABS: Prothrombin Time 11.1 sec (9.0-12.0)
[2018-12-12 05:04] LABS: Magnesium 2.2 mg/dL (1.6-2.3); Potassium 4.2 mmol/L (3.5-5.1)
[2018-12-12 05:26] LABS: Glucose,Whole Blood 147 mg/dL (75-99)
[2018-12-12] MEDS: LEVOTHYROXINE 75 MCG TAB PO SCH (06:07)
[2018-12-12 06:19] LABS: Glucose,Whole Blood 158 mg/dL (75-99)
--- NOTE | 2018-12-12 06:57 | P.PN ---
Subjective Progress Note Date: 12/11/18 Principal diagnosis: Multivessel coronary artery disease, non-ST elevated myocardial infarction this admission, acute decompensated systolic heart failure with an ejection fraction of 30-35% per 2-D echocardiogram, hypertension, hyperlipidemia, insulin- dependent diabetes mellitus with admission hemoglobin A1c 6.6%, obesity, hypothyroid, bipolar disorder/posttraumatic stress disorder, history of syncope and September 2017 with demonstration of fold right lacunar infarct on brain computed tomography scan, ratio right internal carotid artery stenosis 50-69%, current tobacco dependence, severe chronic obstructive pulmonary disease with a preoperative FEV1 of 28% of predicted value and osteoarthritis with previous right hip surgery. Patient is currently lying in bed in the intensive care unit. He is in no acute distress. The patient denies any further complaints of chest pain, he reports that his last episode of chest pain was yesterday morning. Shortness of breath remains present with ambulating, although he feels like his shortness of breath is improving. He remains having a loose productive cough with yellow fin sputum. The repeat bedside FEV1 study showed a predicted value of 28%. The patient's myocardial revascularization surgery was postponed due to his pulmonary status and concerns of postoperative prolonged mechanical ventilator need. Objective - Vital Signs Vital signs: Vital Signs Temp 98 F 12/11/18 04:00 Pulse 78 12/11/18 07:30 Resp 23 12/11/18 04:00 BP 139/71 12/11/18 04:00 Pulse Ox 94 L 12/11/18 04:00 Intake & Output 12/10/18 12/11/18 12/11/18 18:59 06:59 18:59 Intake Total 221.283 164.433 10 Output Total 1240 1445 100 Balance -1018.717 -1280.567 -90 Weight 88.8 kg Intake: IV 170 110 10 0.9 KVO 170 110 10 Intake, IV Titration 51.283 54.433 Amount Insulin Regular 100 unit 51.283 54.433 In Sodium Chloride 0.9% 100 ml @ Per Protocol IV .Q0M [facility] Rx#:[id number] Output: Urine 1240 1445 100 Other: Voiding Method Indwelling Catheter Indwelling Catheter - Constitutional General appearance: Present: cooperative, no acute distress, obese - Respiratory Details: Lung sounds with few scattered crackles and expiratory wheezes throughout, diminished to his bilateral bases. Respirations are symmetrical and nonlabored. Oxygen saturation are 94% on 3 L nasal cannula. He is achieving 1500 mL on his incentive spirometry. Loose productive cough with thin yellow sputum. - Cardiovascular Details: Regular rhythm and rate. S1 and S2 present, negative for S3, gallop or murmur. Bedside telemetry showing normal sinus rhythm heart rate 67. No edema present. Sequential compression devices in place to his bilateral lower extremities. - Gastrointestinal Gastrointestinal Comment(s): Abdomen soft, nontender and nondistended. Active bowel sounds to all 4 abdominal quadrants. Tolerating oral intake. No organomegaly. No guarding or rigidity. - Genitourinary Genitourinary Comment(s): Tripp catheter for accurate I&O. Draining clear yellow urine. 910 mL output the last 8 hours. - Integumentary Integumentary Comment(s): Skin is warm and dry. No clubbing or cyanosis is present. No rash or abnormal pigmentation is present. - Neurologic Neurologic: Present: CNII-XII intact - Musculoskeletal Musculoskeletal: Present: generalized weakness, strength equal bilaterally - Psychiatric Psychiatric: Present: A&O x's 3, appropriate affect, intact judgment & insight - Allied health notes Allied health notes reviewed: nursing - Labs CBC & Chem 7: 12/12/18 04:14 12/12/18 04:14 Labs: Abnormal Lab Results - Last 24 Hours (Table) 12/10/18 12/10/18 12/10/18 Range/Units 02:21 08:13 09:16 WBC (3.8-10.6) k/uL RBC (4.30-5.90) m/uL Hgb (13.0-17.5) gm/dL Hct (39.0-53.0) % Neutrophils # (1.3-7.7) k/uL Lymphocytes # (1.0-4.8) k/uL APTT (22.0-30.0) sec ABG pH (7.35-7.45) ABG pO2 (83-108) mmHg ABG HCO3 (21-25) mmol/L ABG Total CO2 (19-24) mmol/L ABG O2 Saturation (94-97) % BUN (9-20) mg/dL Creatinine (0.66-1.25) mg/dL Glucose (74-99) mg/dL POC Glucose (mg/dL) 138 H 181 H (75-99) mg/dL Calcium (8.4-10.2) mg/dL Crossmatch See Detail 12/10/18 12/10/18 12/10/18 Range/Units 09:58 10:22 10:26 WBC (3.8-10.6) k/uL RBC (4.30-5.90) m/uL Hgb (13.0-17.5) gm/dL Hct (39.0-53.0) % Neutrophils # (1.3-7.7) k/uL Lymphocytes # (1.0-4.8) k/uL APTT 69.6 H (22.0-30.0) sec ABG pH 7.48 H (7.35-7.45) ABG pO2 51 L* (83-108) mmHg ABG HCO3 28 H (21-25) mmol/L ABG Total CO2 29 H (19-24) mmol/L ABG O2 Saturation 89.0 L (94-97) % BUN (9-20) mg/dL Creatinine (0.66-1.25) mg/dL Glucose (74-99) mg/dL POC Glucose (mg/dL) 199 H (75-99) mg/dL Calcium (8.4-10.2) mg/dL Crossmatch 12/10/18 12/10/18 12/10/18 Range/Units 11:12 12:07 13:22 WBC (3.8-10.6) k/uL RBC (4.30-5.90) m/uL Hgb (13.0-17.5) gm/dL Hct (39.0-53.0) % Neutrophils # (1.3-7.7) k/uL Lymphocytes # (1.0-4.8) k/uL APTT (22.0-30.0) sec ABG pH (7.35-7.45) ABG pO2 (83-108) mmHg ABG HCO3 (21-25) mmol/L ABG Total CO2 (19-24) mmol/L ABG O2 Saturation (94-97) % BUN (9-20) mg/dL Creatinine (0.66-1.25) mg/dL Glucose (74-99) mg/dL POC Glucose (mg/dL) 178 H 162 H 166 H (75-99) mg/dL Calcium (8.4-10.2) mg/dL Crossmatch 12/10/18 12/10/18 12/10/18 Range/Units 14:21 15:00 16:04 WBC (3.8-10.6) k/uL RBC (4.30-5.90) m/uL Hgb (13.0-17.5) gm/dL Hct (39.0-53.0) % Neutrophils # (1.3-7.7) k/uL Lymphocytes # (1.0-4.8) k/uL APTT (22.0-30.0) sec ABG pH (7.35-7.45) ABG pO2 (83-108) mmHg ABG HCO3 (21-25) mmol/L ABG Total CO2 (19-24) mmol/L ABG O2 Saturation (94-97) % BUN (9-20) mg/dL Creatinine (0.66-1.25) mg/dL Glucose (74-99) mg/dL POC Glucose (mg/dL) 171 H 174 H 167 H (75-99) mg/dL Calcium (8.4-10.2) mg/dL Crossmatch 12/10/18 12/10/18 12/10/18 Range/Units 16:43 17:11 18:15 WBC (3.8-10.6) k/uL RBC (4.30-5.90) m/uL Hgb (13.0-17.5) gm/dL Hct (39.0-53.0) % Neutrophils # (1.3-7.7) k/uL Lymphocytes # (1.0-4.8) k/uL APTT (22.0-30.0) sec ABG pH (7.35-7.45) ABG pO2 (83-108) mmHg ABG HCO3 (21-25) mmol/L ABG Total CO2 (19-24) mmol/L ABG O2 Saturation (94-97) % BUN (9-20) mg/dL Creatinine (0.66-1.25) mg/dL Glucose (74-99) mg/dL POC Glucose (mg/dL) 157 H 159 H 167 H (75-99) mg/dL Calcium (8.4-10.2) mg/dL Crossmatch 12/10/18 12/10/18 12/10/18 Range/Units 19:46 21:00 21:55 WBC (3.8-10.6) k/uL RBC (4.30-5.90) m/uL Hgb (13.0-17.5) gm/dL Hct (39.0-53.0) % Neutrophils # (1.3-7.7) k/uL Lymphocytes # (1.0-4.8) k/uL APTT (22.0-30.0) sec ABG pH (7.35-7.45) ABG pO2 (83-108) mmHg ABG HCO3 (21-25) mmol/L ABG Total CO2 (19-24) mmol/L ABG O2 Saturation (94-97) % BUN (9-20) mg/dL Creatinine (0.66-1.25) mg/dL Glucose (74-99) mg/dL POC Glucose (mg/dL) 204 H 175 H 134 H (75-99) mg/dL Calcium (8.4-10.2) mg/dL Crossmatch 12/10/18 12/10/18 12/11/18 Range/Units 23:01 23:56 00:56 WBC (3.8-10.6) k/uL RBC (4.30-5.90) m/uL Hgb (13.0-17.5) gm/dL Hct (39.0-53.0) % Neutrophils # (1.3-7.7) k/uL Lymphocytes # (1.0-4.8) k/uL APTT (22.0-30.0) sec ABG pH (7.35-7.45) ABG pO2 (83-108) mmHg ABG HCO3 (21-25) mmol/L ABG Total CO2 (19-24) mmol/L ABG O2 Saturation (94-97) % BUN (9-20) mg/dL Creatinine (0.66-1.25) mg/dL Glucose (74-99) mg/dL POC Glucose (mg/dL) 183 H 177 H 142 H (75-99) mg/dL Calcium (8.4-10.2) mg/dL Crossmatch 12/11/18 12/11/18 12/11/18 Range/Units 02:06 03:10 04:02 WBC (3.8-10.6) k/uL RBC (4.30-5.90) m/uL Hgb (13.0-17.5) gm/dL Hct (39.0-53.0) % Neutrophils # (1.3-7.7) k/uL Lymphocytes # (1.0-4.8) k/uL APTT (22.0-30.0) sec ABG pH (7.35-7.45) ABG pO2 (83-108) mmHg ABG HCO3 (21-25) mmol/L ABG Total CO2 (19-24) mmol/L ABG O2 Saturation (94-97) % BUN (9-20) mg/dL Creatinine (0.66-1.25) mg/dL Glucose (74-99) mg/dL POC Glucose (mg/dL) 105 H 133 H 190 H (75-99) mg/dL Calcium (8.4-10.2) mg/dL Crossmatch 12/11/18 12/11/18 12/11/18 Range/Units 04:23 04:23 04:59 WBC 14.0 H (3.8-10.6) k/uL RBC 3.30 L (4.30-5.90) m/uL Hgb 9.8 L (13.0-17.5) gm/dL Hct 29.9 L (39.0-53.0) % Neutrophils # 12.7 H (1.3-7.7) k/uL Lymphocytes # 0.4 L (1.0-4.8) k/uL APTT (22.0-30.0) sec ABG pH (7.35-7.45) ABG pO2 (83-108) mmHg ABG HCO3 (21-25) mmol/L ABG Total CO2 (19-24) mmol/L ABG O2 Saturation (94-97) % BUN 50 H (9-20) mg/dL Creatinine 1.31 H (0.66-1.25) mg/dL Glucose 208 H (74-99) mg/dL POC Glucose (mg/dL) 224 H (75-99) mg/dL Calcium 8.0 L (8.4-10.2) mg/dL Crossmatch 12/11/18 12/11/18 Range/Units 06:02 06:58 WBC (3.8-10.6) k/uL RBC (4.30-5.90) m/uL Hgb (13.0-17.5) gm/dL Hct (39.0-53.0) % Neutrophils # (1.3-7.7) k/uL Lymphocytes # (1.0-4.8) k/uL APTT (22.0-30.0) sec ABG pH (7.35-7.45) ABG pO2 (83-108) mmHg ABG HCO3 (21-25) mmol/L ABG Total CO2 (19-24) mmol/L ABG O2 Saturation (94-97) % BUN (9-20) mg/dL Creatinine (0.66-1.25) mg/dL Glucose (74-99) mg/dL POC Glucose (mg/dL) 182 H 138 H (75-99) mg/dL Calcium (8.4-10.2) mg/dL Crossmatch - Imaging and Cardiology Chest x-ray: image reviewed Assessment and Plan (1) Elevated serum creatinine Current Visit: Yes Status: Acute Code(s): R79.89 - OTHER SPECIFIED ABNORMAL FINDINGS OF BLOOD CHEMISTRY SNOMED Code(s): 468769902 (2) COPD (chronic obstructive pulmonary disease) Current Visit: Yes Status: Acute Code(s): J44.9 - CHRONIC OBSTRUCTIVE PULMONARY DISEASE, UNSPECIFIED SNOMED Code(s): 02436045 (3) Coronary artery disease Current Visit: Yes Status: Acute Code(s): I25.10 - ATHSCL HEART DISEASE OF [place] CORONARY ARTERY W/O ANG PCTRS SNOMED Code(s): 08491398 (4) Acute systolic heart failure Current Visit: Yes Status: Acute Code(s): I50.21 - ACUTE SYSTOLIC ( CONGESTIVE) HEART FAILURE SNOMED Code(s): 981753699 (5) Non-STEMI (non-ST elevated myocardial infarction) Current Visit: Yes Status: Acute Code(s): I21.4 - NON-ST ELEVATION (NSTEMI) MYOCARDIAL INFARCTION SNOMED Code(s): 22337972 (6) Bipolar disorder Current Visit: Yes Status: Chronic Code(s): F31.9 - BIPOLAR DISORDER, UNSPECIFIED SNOMED Code(s): 98709560 (7) Hyperlipidemia associated with type 2 diabetes mellitus Current Visit: Yes Status: Chronic Code(s): E11.69 - TYPE 2 DIABETES MELLITUS WITH OTHER SPECIFIED COMPLICATION; E78.5 - HYPERLIPIDEMIA, UNSPECIFIED SNOMED Code(s): 199770521151 (8) Hypertension Current Visit: Yes Status: Chronic Code(s): I10 - ESSENTIAL (PRIMARY) HYPERTENSION SNOMED Code(s): 69325337 (9) Hypoactive thyroid Current Visit: Yes Status: Chronic Code(s): E03.9 - HYPOTHYROIDISM, UNSPECIFIED SNOMED Code(s): 07846390 (10) Stenosis of right carotid artery greater than 50% Current Visit: Yes Status: Chronic Code(s): I65.21 - OCCLUSION AND STENOSIS OF RIGHT CAROTID ARTERY SNOMED Code(s): 981877361304698 (11) Tobacco dependence Current Visit: Yes Status: Chronic Code(s): F17.200 - NICOTINE DEPENDENCE, UNSPECIFIED, UNCOMPLICATED SNOMED Code(s): 84027531 (12) Anxiety and depression Current Visit: No Status: Acute Code(s): F41.9 - ANXIETY DISORDER, UNSPECIFIED SNOMED Code(s): 97552963 (13) Diabetes Current Visit: No Status: Acute Code(s): E11.9 - TYPE 2 DIABETES MELLITUS WITHOUT COMPLICATIONS SNOMED Code(s): 58043342 Plan: 1. Continue aspirin, statin, heparin subcu and beta sergio. Continue to optimize with medical therapy. 2. Repeat FEV1 was 28% of predicted value completed yesterday. ABG results yesterday showing a pH of 7.48, pCO2 37, pO2 51, HCO3 28, oxygen saturation 89% , base excess 4.3 on room air. 3. Bronchodilators and Solu-Medrol management per Dr. Ness. CT of the chest ordered. 4. Encourage incentive spirometry use every hour while awake. 5. Increase activity as tolerated. Up to chair as able for all meals. Consult physical and occupational therapy, cardiac rehabilitation following. 6. The importance of smoking cessation was discussed with the patient. 7. GI prophylaxis with Protonix, DVT prophylaxis with subcu heparin and SCDs. 8. Continue to reinforce preoperative teaching. 9. Myocardial revascularization surgery has been postponed due to his pulmonary status. He will be rescheduled for myocardial revascularization surgery once his pulmonary status has improved. 10. 5 m walk test completed on patient yesterday by inter com servicer time 1:7.93 seconds, time 2: 6.90 seconds, time 3: 7.42 seconds. 11. Monitor daily labs, occult stool sent yesterday was negative. 12. More recommendations to follow based on patient's clinical course. Time with Patient: Greater than 30
[2018-12-12] MEDS: PANTOPRAZOLE 40 MG TABLET PO SCH (06:59)
[2018-12-12] MEDS ORDERED: MD COMMUNICATION TO PHARMACY 1 EACH MISC PO ONE ×3 (07:21)
[2018-12-12] MEDS ORDERED: CARDIOPLEGIC SOLN (K+ 16 MEQ/L 1,000 ML with SOD BICARB SYR 8.4% (1 MEQ/ML) 20 ML, LIDO... PERFUSION NR ×3 (07:30)
[2018-12-12 08:14] LABS: Glucose,Whole Blood 135 mg/dL (75-99)
[2018-12-12] MEDS: FORMOTEROL FUMARATE 20 MCG/2 ML NEBU INHALATION SCH ×2 (08:33→19:34)
[2018-12-12] MEDS: BUDESONIDE 1 MG/2 ML NEBU INHALATION SCH ×2 (08:33→19:24)
[2018-12-12] MEDS: IPRATROPIUM-ALBUTEROL 3 ML NEB INHALATION SCH ×4 (08:33→19:23)
[2018-12-12 09:07] LABS: Glucose,Whole Blood 191 mg/dL (75-99)
[2018-12-12] MEDS: FUROSEMIDE 20 MG TAB PO SCH (09:07)
[2018-12-12] MEDS: ASPIRIN 325 MG TAB PO SCH (09:07)
--- NOTE | 2018-12-12 09:07 | P.PN ---
Subjective Progress Note Date: 12/12/18 Principal diagnosis: Multivessel coronary artery disease, non-STEMI, acute decompensated systolic heart failure with EF 30-35%. Previous medical history of hypertension, hyperlipidemia, insulin-dependent diabetes mellitus with current hemoglobin A1c 6.6%, obesity, hypothyroid, bipolar/PTSD, syncope in September 2017 with demonstration of old right lacunar infarct on brain CT, right internal carotid artery stenosis 50-69%, current tobacco dependence, severe COPD with preoperative FEV1 28% of predicted, and right hip surgery. Preoperative acute kidney injury and normocytic, normochromic anemia of unknown cause. The patient is currently sitting up in a recliner in no acute distress the intensive care unit. He denies any chest pain or shortness of breath in the last 24 hours. He does continue to complain of coughing with deep breathing. Remains on IV as well as inhaled steroids per pulmonology. No new concerns or questions. Objective - Vital Signs Vital signs: Vital Signs Temp 97.5 F L 12/12/18 04:00 Pulse 87 12/12/18 08:47 Resp 18 12/12/18 04:00 BP 115/57 12/12/18 04:00 Pulse Ox 94 L 12/12/18 04:00 Intake & Output 12/11/18 12/12/18 12/12/18 18:59 06:59 18:59 Intake Total 209.035 156.625 Output Total 1325 720 Balance -1115.965 -563.375 Weight 88.8 kg 88.6 kg Intake: IV 120 100 0.9 KVO 120 100 Intake, IV Titration 89.035 56.625 Amount Insulin Regular 100 unit 89.035 56.625 In Sodium Chloride 0.9% 100 ml @ Per Protocol IV .Q0M [facility] Rx#:[id number] Output: Urine 1325 720 Other: Voiding Method Indwelling Catheter Indwelling Catheter - Constitutional General appearance: Present: cooperative, no acute distress, obese - Respiratory Details: Lungs sounds diminished bilaterally with coarse breath sounds and expiratory wheeze in the bases. Respirations even, nonlabored. Currently on 3 L nasal cannula with oxygen saturation 94%. Able to achieve 1250 mL on his incentive spirometry. Strong cough. - Cardiovascular Details: S1, S2 present. Regular rate and rhythm, sinus rhythm on telemetry. Palpable peripheral pulses bilaterally. No edema present. No calf pain or tenderness noted. SCDs present. - Gastrointestinal Gastrointestinal Comment(s): Abdomen soft, nontender, nondistended. Active bowel sounds 4 quadrants. Tolerating diet. - Genitourinary Genitourinary Comment(s): Tripp present draining clear, yellow urine. Output 460 mL in the last 8 hours. - Integumentary Integumentary Comment(s): Skin is warm and dry with evidence of good perfusion. - Neurologic Neurologic: Present: CNII-XII intact - Musculoskeletal Musculoskeletal: Present: gait normal, strength equal bilaterally - Psychiatric Psychiatric: Present: A&O x's 3, appropriate affect - Allied health notes Allied health notes reviewed: nursing - Labs CBC & Chem 7: 12/12/18 04:14 12/12/18 04:14 Labs: Abnormal Lab Results - Last 24 Hours (Table) 12/10/18 12/11/18 12/11/18 Range/Units 02:21 09:03 10:04 WBC (3.8-10.6) k/uL RBC (4.30-5.90) m/uL Hgb (13.0-17.5) gm/dL Hct (39.0-53.0) % Neutrophils # (1.3-7.7) k/uL Lymphocytes # (1.0-4.8) k/uL Carbon Dioxide (22-30) mmol/L BUN (9-20) mg/dL Creatinine (0.66-1.25) mg/dL Glucose (74-99) mg/dL POC Glucose (mg/dL) 191 H 259 H (75-99) mg/dL Calcium (8.4-10.2) mg/dL Crossmatch See Detail 12/11/18 12/11/18 12/11/18 Range/Units 11:04 11:52 14:03 WBC (3.8-10.6) k/uL RBC (4.30-5.90) m/uL Hgb (13.0-17.5) gm/dL Hct (39.0-53.0) % Neutrophils # (1.3-7.7) k/uL Lymphocytes # (1.0-4.8) k/uL Carbon Dioxide (22-30) mmol/L BUN (9-20) mg/dL Creatinine (0.66-1.25) mg/dL Glucose (74-99) mg/dL POC Glucose (mg/dL) 281 H 263 H 225 H (75-99) mg/dL Calcium (8.4-10.2) mg/dL Crossmatch 12/11/18 12/11/18 12/11/18 Range/Units 15:09 16:19 17:20 WBC (3.8-10.6) k/uL RBC (4.30-5.90) m/uL Hgb (13.0-17.5) gm/dL Hct (39.0-53.0) % Neutrophils # (1.3-7.7) k/uL Lymphocytes # (1.0-4.8) k/uL Carbon Dioxide (22-30) mmol/L BUN (9-20) mg/dL Creatinine (0.66-1.25) mg/dL Glucose (74-99) mg/dL POC Glucose (mg/dL) 149 H 114 H 140 H (75-99) mg/dL Calcium (8.4-10.2) mg/dL Crossmatch 12/11/18 12/11/18 12/11/18 Range/Units 18:07 20:01 21:05 WBC (3.8-10.6) k/uL RBC (4.30-5.90) m/uL Hgb (13.0-17.5) gm/dL Hct (39.0-53.0) % Neutrophils # (1.3-7.7) k/uL Lymphocytes # (1.0-4.8) k/uL Carbon Dioxide (22-30) mmol/L BUN (9-20) mg/dL Creatinine (0.66-1.25) mg/dL Glucose (74-99) mg/dL POC Glucose (mg/dL) 194 H 176 H 169 H (75-99) mg/dL Calcium (8.4-10.2) mg/dL Crossmatch 12/11/18 12/11/18 12/11/18 Range/Units 21:59 23:03 23:39 WBC (3.8-10.6) k/uL RBC (4.30-5.90) m/uL Hgb (13.0-17.5) gm/dL Hct (39.0-53.0) % Neutrophils # (1.3-7.7) k/uL Lymphocytes # (1.0-4.8) k/uL Carbon Dioxide (22-30) mmol/L BUN (9-20) mg/dL Creatinine (0.66-1.25) mg/dL Glucose (74-99) mg/dL POC Glucose (mg/dL) 114 H 146 H 189 H (75-99) mg/dL Calcium (8.4-10.2) mg/dL Crossmatch 12/12/18 12/12/18 12/12/18 Range/Units 00:24 01:20 02:11 WBC (3.8-10.6) k/uL RBC (4.30-5.90) m/uL Hgb (13.0-17.5) gm/dL Hct (39.0-53.0) % Neutrophils # (1.3-7.7) k/uL Lymphocytes # (1.0-4.8) k/uL Carbon Dioxide (22-30) mmol/L BUN (9-20) mg/dL Creatinine (0.66-1.25) mg/dL Glucose (74-99) mg/dL POC Glucose (mg/dL) 132 H 116 H 153 H (75-99) mg/dL Calcium (8.4-10.2) mg/dL Crossmatch 12/12/18 12/12/18 12/12/18 Range/Units 03:05 04:14 04:14 WBC 12.3 H (3.8-10.6) k/uL RBC 3.17 L (4.30-5.90) m/uL Hgb 9.3 L (13.0-17.5) gm/dL Hct 28.9 L (39.0-53.0) % Neutrophils # 11.3 H (1.3-7.7) k/uL Lymphocytes # 0.4 L (1.0-4.8) k/uL Carbon Dioxide 31 H (22-30) mmol/L BUN 48 H (9-20) mg/dL Creatinine 1.26 H (0.66-1.25) mg/dL Glucose 119 H (74-99) mg/dL POC Glucose (mg/dL) 149 H (75-99) mg/dL Calcium 8.0 L (8.4-10.2) mg/dL Crossmatch 12/12/18 12/12/18 12/12/18 Range/Units 04:18 05:23 06:16 WBC (3.8-10.6) k/uL RBC (4.30-5.90) m/uL Hgb (13.0-17.5) gm/dL Hct (39.0-53.0) % Neutrophils # (1.3-7.7) k/uL Lymphocytes # (1.0-4.8) k/uL Carbon Dioxide (22-30) mmol/L BUN (9-20) mg/dL Creatinine (0.66-1.25) mg/dL Glucose (74-99) mg/dL POC Glucose (mg/dL) 127 H 147 H 158 H (75-99) mg/dL Calcium (8.4-10.2) mg/dL Crossmatch 12/12/18 Range/Units 08:10 WBC (3.8-10.6) k/uL RBC (4.30-5.90) m/uL Hgb (13.0-17.5) gm/dL Hct (39.0-53.0) % Neutrophils # (1.3-7.7) k/uL Lymphocytes # (1.0-4.8) k/uL Carbon Dioxide (22-30) mmol/L BUN (9-20) mg/dL Creatinine (0.66-1.25) mg/dL Glucose (74-99) mg/dL POC Glucose (mg/dL) 135 H (75-99) mg/dL Calcium (8.4-10.2) mg/dL Crossmatch - Imaging and Cardiology Chest x-ray: report reviewed, image reviewed CT scan - chest: report reviewed, image reviewed Assessment and Plan (1) Non-STEMI (non-ST elevated myocardial infarction) Current Visit: Yes Status: Acute Code(s): I21.4 - NON-ST ELEVATION (NSTEMI) MYOCARDIAL INFARCTION SNOMED Code(s): 21741474 (2) Acute systolic heart failure Current Visit: Yes Status: Acute Code(s): I50.21 - ACUTE SYSTOLIC ( CONGESTIVE) HEART FAILURE SNOMED Code(s): 930879062 (3) Hyperlipidemia associated with type 2 diabetes mellitus Current Visit: Yes Status: Chronic Code(s): E11.69 - TYPE 2 DIABETES MELLITUS WITH OTHER SPECIFIED COMPLICATION; E78.5 - HYPERLIPIDEMIA, UNSPECIFIED SNOMED Code(s): 412453458111 (4) Tobacco dependence Current Visit: Yes Status: Chronic Code(s): F17.200 - NICOTINE DEPENDENCE, UNSPECIFIED, UNCOMPLICATED SNOMED Code(s): 26175137 (5) History of syncope Current Visit: No Status: Resolved Code(s): Z87.898 - PERSONAL HISTORY OF OTHER SPECIFIED CONDITIONS SNOMED Code(s): 262717984004525 (6) Stenosis of right carotid artery greater than 50% Current Visit: Yes Status: Chronic Code(s): I65.21 - OCCLUSION AND STENOSIS OF RIGHT CAROTID ARTERY SNOMED Code(s): 332907416059895 (7) Acute respiratory failure with hypoxia Current Visit: Yes Status: Acute Code(s): J96.01 - ACUTE RESPIRATORY FAILURE WITH HYPOXIA SNOMED Code(s): 09326763 (8) Hypertension Current Visit: Yes Status: Chronic Code(s): I10 - ESSENTIAL (PRIMARY) HYPERTENSION SNOMED Code(s): 87340722 (9) Hypertensive emergency Current Visit: Yes Status: Acute Code(s): I16.1 - HYPERTENSIVE EMERGENCY SNOMED Code(s): 873776107717952 (10) Diabetes mellitus type 2, uncontrolled Current Visit: Yes Status: Chronic Code(s): E11.65 - TYPE 2 DIABETES MELLITUS WITH HYPERGLYCEMIA SNOMED Code(s): 04289018 (11) Hypoactive thyroid Current Visit: Yes Status: Chronic Code(s): E03.9 - HYPOTHYROIDISM, UNSPECIFIED SNOMED Code(s): 01630202 (12) Bipolar disorder Current Visit: Yes Status: Chronic Code(s): F31.9 - BIPOLAR DISORDER, UNSPECIFIED SNOMED Code(s): 26421299 Plan: 1. Continue to optimize medical therapy with aspirin, statin, beta sergio, JOSE M inhibitor, Imdur. 2. Bronchodilators, steroids per pulmonology. Room air ABGs noted. CT of the chest reviewed. 3. Encourage incentive spirometry use. Encourage continued smoking cessation. 4. Increase activity as tolerated. Ambulate as able. PT/OT/history rehab following. 5. Will monitor daily labs and x-rays. Fecal occult blood negative. 6. GI prophylaxis with Protonix, DVT prophylaxis with subcu heparin, SCDs. 7. Continue to reinforce preoperative teaching. 8. STS risk score recalculated with most recent diagnostic information. Patient is high risk for surgery at this point in time, high risk for postoperative pulmonary complications including prolonged mechanical ventilation , pneumonia, renal failure, and stroke. Surgery was delayed to optimize her pulmonary status. Our plan is to take patient to the OR tomorrow, 12/13/2018 for off pump coronary artery bypass graft surgery with Dr. Horn. 9. More recommendations to follow. Time with Patient: Greater than 30
[2018-12-12] MEDS: MUPIROCIN 2% OINT 22 GM TUBE TOPICAL SCH ×2 (09:08→20:11)
[2018-12-12] MEDS: ATORVASTATIN 40 MG TAB PO SCH (09:08)
[2018-12-12] MEDS: METOPROLOL SUCCINATE (ER) 25 MG TAB.ER.24H PO SCH (10:33)
[2018-12-12] MEDS: LISINOPRIL 2.5 MG TAB PO SCH (10:34)
[2018-12-12] MEDS: ISOSORBIDE MONONITRATE ER 30 MG TAB.ER.24H PO SCH (10:34)
[2018-12-12 11:05] LABS: Glucose,Whole Blood 236 mg/dL (75-99)
[2018-12-12 11:49] VITALS: BMI 26.4
[2018-12-12 12:22] LABS: Glucose,Whole Blood 179 mg/dL (75-99)
--- NOTE | 2018-12-12 13:56 | P.PN ---
Subjective Progress Note Date: 12/12/18 On 12/12/2018, the patient is doing well. The patient is not having any specific complaints. No chest pain. The tentative plan is to proceed with surgery tomorrow. COPD slightly improved over the past few days. He is less short of breath. Mucus production is also subsided. His chest x-ray still showing interstitial edema bilaterally. Hemodynamically stable. No fever. No chills. No night sweats. He is pulling approximately 1250 on his incentive spirometer. He continues to be on a combination of DuoNeb nebulized treatment [id number], Perforomist and Pulmicort overestimates twice and then IV Solu -Medrol. The patient is doing limited amount of activity and ambulating in the hallway. Hemoglobin is at 9.3. Correlation profile is within normal limits. His creatinine is also stable at 1.26 with a BUN of 48. Objective - Vital Signs Vital signs: Vital Signs Temp 97.5 F L 12/12/18 04:00 Pulse 81 12/12/18 13:02 Resp 20 12/12/18 12:00 BP 121/58 12/12/18 12:00 Pulse Ox 96 12/12/18 12:00 Intake & Output 12/11/18 12/12/18 12/12/18 18:59 06:59 18:59 Intake Total 209.035 156.625 118.033 Output Total 1325 720 425 Balance -1115.965 -563.375 -306.967 Weight 88.8 kg 88.6 kg 88.6 kg Intake: IV 120 100 80 0.9 KVO 120 100 80 Intake, IV Titration 89.035 56.625 38.033 Amount Insulin Regular 100 unit 89.035 56.625 38.033 In Sodium Chloride 0.9% 100 ml @ Per Protocol IV .Q0M [facility] Rx#:[id number] Output: Urine 1325 720 425 Other: Voiding Method Indwelling Catheter Indwelling Catheter Indwelling Catheter - Exam GENERAL EXAM: Alert, pleasant, 68-year-old white male comfortable in no apparent distress. HEAD: Normocephalic/atraumatic. EYES: Normal reaction of pupils, equal size. Conjunctiva pink, sclera white. NOSE: Clear with pink turbinates. THROAT: No erythema or exudates. NECK: No masses, no JVD, no thyroid enlargement, no adenopathy. CHEST: No chest wall deformity. Symmetrical expansion. LUNGS: Equal air entry with diffuse wheezes posteriorly and a few scattered rhonchi CVS: Regular rate and rhythm, normal S1 and S2, no gallops, no murmurs, no rubs ABDOMEN: Soft, nontender. No hepatosplenomegaly, normal bowel sounds, no guarding or rigidity. EXTREMITIES: No clubbing, no edema, no cyanosis, 2+ pulses and upper and lower extremities. MUSCULOSKELETAL: Muscle strength and tone normal. SPINE: No scoliosis or deformity SKIN: No rashes CENTRAL NERVOUS SYSTEM: Alert and oriented -3. No focal deficits, tone is normal in all 4 extremities. PSYCHIATRIC: Alert and oriented -3. Appropriate affect. Intact judgment and insight. - Labs CBC & Chem 7: 12/12/18 04:14 12/12/18 04:14 Labs: Abnormal Lab Results - Last 24 Hours (Table) 12/10/18 12/11/18 12/11/18 Range/Units 02:21 14:03 15:09 WBC (3.8-10.6) k/uL RBC (4.30-5.90) m/uL Hgb (13.0-17.5) gm/dL Hct (39.0-53.0) % Neutrophils # (1.3-7.7) k/uL Lymphocytes # (1.0-4.8) k/uL Carbon Dioxide (22-30) mmol/L BUN (9-20) mg/dL Creatinine (0.66-1.25) mg/dL Glucose (74-99) mg/dL POC Glucose (mg/dL) 225 H 149 H (75-99) mg/dL Calcium (8.4-10.2) mg/dL Crossmatch See Detail 12/11/18 12/11/18 12/11/18 Range/Units 16:19 17:20 18:07 WBC (3.8-10.6) k/uL RBC (4.30-5.90) m/uL Hgb (13.0-17.5) gm/dL Hct (39.0-53.0) % Neutrophils # (1.3-7.7) k/uL Lymphocytes # (1.0-4.8) k/uL Carbon Dioxide (22-30) mmol/L BUN (9-20) mg/dL Creatinine (0.66-1.25) mg/dL Glucose (74-99) mg/dL POC Glucose (mg/dL) 114 H 140 H 194 H (75-99) mg/dL Calcium (8.4-10.2) mg/dL Crossmatch 12/11/18 12/11/18 12/11/18 Range/Units 20:01 21:05 21:59 WBC (3.8-10.6) k/uL RBC (4.30-5.90) m/uL Hgb (13.0-17.5) gm/dL Hct (39.0-53.0) % Neutrophils # (1.3-7.7) k/uL Lymphocytes # (1.0-4.8) k/uL Carbon Dioxide (22-30) mmol/L BUN (9-20) mg/dL Creatinine (0.66-1.25) mg/dL Glucose (74-99) mg/dL POC Glucose (mg/dL) 176 H 169 H 114 H (75-99) mg/dL Calcium (8.4-10.2) mg/dL Crossmatch 12/11/18 12/11/18 12/12/18 Range/Units 23:03 23:39 00:24 WBC (3.8-10.6) k/uL RBC (4.30-5.90) m/uL Hgb (13.0-17.5) gm/dL Hct (39.0-53.0) % Neutrophils # (1.3-7.7) k/uL Lymphocytes # (1.0-4.8) k/uL Carbon Dioxide (22-30) mmol/L BUN (9-20) mg/dL Creatinine (0.66-1.25) mg/dL Glucose (74-99) mg/dL POC Glucose (mg/dL) 146 H 189 H 132 H (75-99) mg/dL Calcium (8.4-10.2) mg/dL Crossmatch 12/12/18 12/12/18 12/12/18 Range/Units 01:20 02:11 03:05 WBC (3.8-10.6) k/uL RBC (4.30-5.90) m/uL Hgb (13.0-17.5) gm/dL Hct (39.0-53.0) % Neutrophils # (1.3-7.7) k/uL Lymphocytes # (1.0-4.8) k/uL Carbon Dioxide (22-30) mmol/L BUN (9-20) mg/dL Creatinine (0.66-1.25) mg/dL Glucose (74-99) mg/dL POC Glucose (mg/dL) 116 H 153 H 149 H (75-99) mg/dL Calcium (8.4-10.2) mg/dL Crossmatch 12/12/18 12/12/18 12/12/18 Range/Units 04:14 04:14 04:18 WBC 12.3 H (3.8-10.6) k/uL RBC 3.17 L (4.30-5.90) m/uL Hgb 9.3 L (13.0-17.5) gm/dL Hct 28.9 L (39.0-53.0) % Neutrophils # 11.3 H (1.3-7.7) k/uL Lymphocytes # 0.4 L (1.0-4.8) k/uL Carbon Dioxide 31 H (22-30) mmol/L BUN 48 H (9-20) mg/dL Creatinine 1.26 H (0.66-1.25) mg/dL Glucose 119 H (74-99) mg/dL POC Glucose (mg/dL) 127 H (75-99) mg/dL Calcium 8.0 L (8.4-10.2) mg/dL Crossmatch 12/12/18 12/12/18 12/12/18 Range/Units 05:23 06:16 08:10 WBC (3.8-10.6) k/uL RBC (4.30-5.90) m/uL Hgb (13.0-17.5) gm/dL Hct (39.0-53.0) % Neutrophils # (1.3-7.7) k/uL Lymphocytes # (1.0-4.8) k/uL Carbon Dioxide (22-30) mmol/L BUN (9-20) mg/dL Creatinine (0.66-1.25) mg/dL Glucose (74-99) mg/dL POC Glucose (mg/dL) 147 H 158 H 135 H (75-99) mg/dL Calcium (8.4-10.2) mg/dL Crossmatch 12/12/18 12/12/18 12/12/18 Range/Units 09:04 10:55 10:59 WBC (3.8-10.6) k/uL RBC (4.30-5.90) m/uL Hgb (13.0-17.5) gm/dL Hct (39.0-53.0) % Neutrophils # (1.3-7.7) k/uL Lymphocytes # (1.0-4.8) k/uL Carbon Dioxide (22-30) mmol/L BUN (9-20) mg/dL Creatinine (0.66-1.25) mg/dL Glucose (74-99) mg/dL POC Glucose (mg/dL) 191 H 236 H (75-99) mg/dL Calcium (8.4-10.2) mg/dL Crossmatch See Detail 12/12/18 Range/Units 12:19 WBC (3.8-10.6) k/uL RBC (4.30-5.90) m/uL Hgb (13.0-17.5) gm/dL Hct (39.0-53.0) % Neutrophils # (1.3-7.7) k/uL Lymphocytes # (1.0-4.8) k/uL Carbon Dioxide (22-30) mmol/L BUN (9-20) mg/dL Creatinine (0.66-1.25) mg/dL Glucose (74-99) mg/dL POC Glucose (mg/dL) 179 H (75-99) mg/dL Calcium (8.4-10.2) mg/dL Crossmatch Assessment and Plan Plan: Assessment: #1. Acute non-ST elevated myocardial infarction, currently free of any chest pain, still awaiting cardiac bypass surgery.. The surgery was postponed because of his active COPD which has been optimized over the past several days. #2. Severe 2-vessel coronary artery disease, patient had a 70 to 80% percent occlusion of the circumflex coronary artery, 70-80% lesion in the obtuse marginal 2, and 95% lesion in the LAD, has been evaluated by CT surgery, and bypass surgery scheduled but the postponed because of his active COPD and ongoing respiratory difficulties with bronchospasm wheezing and mucus production secondary to COPD. CAT scan of the chest is also showing CHF and interstitial edema. The patient is still being optimized prior to being considered for cardiac bypass surgery. #3. Acute hypoxemic respiratory failure secondary to acute exacerbation of congestive heart failure, with systolic dysfunction #4. Hypertension #5. Hypothyroid #6. Diabetes mellitus type 2 #7. Suspect underlying chronic obstructive pulmonary disease, and bedside spirometry is poor with an FEV1 of less than 30% of predicted. #8. Nicotine dependence, patient carries over 50 years of smoking history of less then a pack a day Plan The patient is still considered to be a high risk of developing postoperative pulmonary complications in general based on the fact that the patient has advanced COPD and despite improvement in his acute COPD exacerbation, the patient is still low on his FEV1 and is still low on his incentive spirometer. His chest x-ray still showing interstitial edema secondary to CHF post-FL. His overall performance and functional status is poor. Able to ambulate however for short distances. His estimated risk for cardiac surgery has been reported by the surgical team. Based on my opinion, this patient carries a high risk of developing pulmonary complications including prolonged intubation, mechanical ventilation and respiratory failure. May need a tracheostomy at later stage if fails weaning. He understands all these complications. Tentative plan is to proceed with surgery tomorrow.
--- NOTE | 2018-12-12 14:05 | PN ---
PROGRESS NOTE Faisal is a 68-year-old gentleman who was admitted to hospital with acute myocardial infarction and pulmonary edema. He is feeling better and will undergo bypass surgery tomorrow. PHYSICAL EXAM: Comfortable at rest. Vital signs are stable. There is no jugular venous distention. Chest exam reveals occasional rhonchi bilaterally. Heart exam reveals first and second heart sounds. No gallop. Exam of extremities did not reveal any edema. Peripheral pulses are felt. Patient is currently on aspirin, Lipitor, Plavix, Imdur, lisinopril, Lopressor. ASSESSMENT: 1. Acute myocardial infarction with severe 2-vessel coronary artery disease. 2. Pulmonary edema. PLAN: Patient will undergo bypass surgery tomorrow. MMODL / IJN: [id number] /
[2018-12-12 14:20] LABS: Glucose,Whole Blood 211 mg/dL (75-99)
--- NOTE | 2018-12-12 15:11 | P.PN ---
Subjective Progress Note Date: 12/12/18 Progress note being dictated for Dr. Sanchez Interval history:68-year-old admitted secondary to non-ST elevation myocardial infarction acute congestive heart failure secondary to myocardial infarction patient underwent cardiac catheterization found to have two-vessel disease including LAD disease because of which cardiology is recommending coronary artery bypass grafting carotid thoracic surgery was consulted and they're planning on doing CABG and Sunday. Patient still has volume overload patient will be started on 40 IV twice a day of Lasix. Patient is still bit shot of breath requiring 4 L of oxygen via does have some wheezing on exam may be cardiac asthma but it if his oxygen requirements doesn't come down will start him on albuterol and Symbicort at that time. 12/09/2018 Patient is still wheezing quite a bit with rhonchus breath sounds crackles Lasix will be continued daily probably need to switch him to oral Lasix cut down the Lasix tomorrow. Patient was started on systemic steroids by infectious disease is pedal edema improved but still requiring 4 L of oxygen. 12/10/2018 initially scheduled for CABG tomorrow. Postponed secondary to pulmonary status. Remains wheezy with congested cough. Poor FEV1 , less than 30%.maintaining low to mid 90s on 3 L nasal cannula.Maintained on nebulized bronchodilators, Perforomist, Pulmicort, IV steroids, Lasix IV push. 24-hour I &O reflecting a negative fluid balance.Chest x-ray reporting persistent bilateral reticular interstitial edema and/or infiltrates with developing focal bilateral infrahilar alveolar edema. Currently denies chest pain or palpitations. Maintained on heparin drip. Blood sugars controlled on insulin drip. Creatinine 1.31. 12/11/2018 Continues on nebulized bronchodilators, steroids, Lasix, Perforomist , Pulmicort.Pulmonary status unchanged, incentive spirometer less than 1000. Chest x-ray reporting prominent pulmonary vascular markings, improving infiltrate. Chest CT performed reporting fluid overload, small left greater than right pleural effusions, multifocal areas of bilateral mild alveolar edema , possible, possible underlying areas of acute infiltrate. Continues on insulin drip. Denies chest pain, palpitations. Creatinine unchanged. 12/12/2018 sitting up in chair, ambulating in hallway short distances, tolerated exertion well. Telemetry sinus rhythm. Less wheezing today, O2 titrated further down to 2 L, maintaining O2 sats of 96%. Scheduled for tomorrow. Maintained on insulin drip. Creatinine 1.26. Afebrile. Constitutional: Denied any fatigue denied any fever. Cardio vascular: denied any chest pain, palpitations Gastrointestinal denied any nausea vomiting Pulmonary: As mentioned in the interval history Neurologic denied any new focal deficits Active Medications Generic Name Dose Route Start Last Admin Trade Name Freq PRN Reason Stop Dose Admin Albuterol/Ipratropium 3 ml 12/08/18 12:08 Duoneb 0.5 Mg-3 Mg/3 Ml Soln INHALATION RT-QID PRN Shortness Of Breath Or Wheezing Albuterol/Ipratropium 3 ml 12/08/18 16:00 12/12/18 12:49 Duoneb 0.5 Mg-3 Mg/3 Ml Soln INHALATION 3 ml RT-QID JOLYNN Administration Aspirin 325 mg 12/11/18 09:00 12/12/18 09:07 Aspirin PO 325 mg DAILY JOLYNN Administration Aspirin 325 mg 12/13/18 05:00 Aspirin PO 12/13/18 05:01 ONCE ONE Atorvastatin Calcium 40 mg 12/08/18 09:00 12/12/18 09:08 Lipitor PO 40 mg DAILY JOLYNN Administration Atorvastatin Calcium 10 mg 12/13/18 05:00 Lipitor PO 12/13/18 05:01 ONCE ONE Budesonide 1 mg 12/08/18 20:00 12/12/18 08:33 Pulmicort INHALATION 1 mg RT-BID JOLYNN Administration Calcium Chloride 1,000 mg 12/13/18 05:00 Calcium Chloride IVP 12/13/18 05:01 ONCE ONE Chlorhexidine Gluconate 15 ml 12/13/18 05:00 Peridex MUCOUS MEM 12/13/18 05:01 ONCE ONE Fluvoxamine Maleate 50 mg 12/08/18 09:00 12/12/18 09:07 Luvox PO 50 mg DAILY JOLYNN Administration Formoterol Fumarate 20 mcg 12/08/18 20:00 12/12/18 08:33 Perforomist INHALATION 20 mcg RT-BID JOLYNN Administration Guaifenesin/Codeine Phosphate 10 ml 12/08/18 00:43 12/08/18 21:22 Robitussin Ac PO 10 ml Q6H PRN Administration Cough Heparin Sodium (Porcine) 5,000 unit 12/10/18 16:00 12/12/18 08:55 Heparin SQ 5,000 unit Q8HR JOLYNN Administration Heparin Sodium (Porcine) 10,000 unit 12/13/18 05:00 Heparin Sodium (1,000 Unit/Ml) IV 12/13/18 05:01 ONCE ONE Heparin Sodium (Porcine) 30,000 unit 12/13/18 05:00 Heparin IV 12/13/18 05:01 ONCE ONE Heparin Sodium (Porcine) 30,000 unit 12/13/18 05:00 Heparin IV 12/13/18 05:01 ONCE ONE Heparin Sodium (Porcine) 30,000 unit 12/13/18 05:00 Heparin IV 12/13/18 05:01 ONCE ONE Insulin Human Regular 100 unit 101 mls @ 0 mls/hr 12/09/18 00:30 12/12/18 14: 05 / Sodium Chloride IV 11 mls/hr .Q0M JOLYNN 11 mls/hr Titration Protocol Per Protocol Albumin Human 50 ml/ IV 50 mls @ 100 mls/hr 12/13/18 05:00 Solution IVPB 12/13/18 05:29 ONCE ONE Albumin Human 50 ml/ IV 50 mls @ 100 mls/hr 12/13/18 05:00 Solution IVPB 12/13/18 05:29 ONCE ONE Albumin Human 500 ml/ IV 500 mls @ 250 mls/hr 12/13/18 05:00 Solution IVPB 12/13/18 06:59 ONCE ONE Albumin Human 500 ml/ IV 500 mls @ 250 mls/hr 12/13/18 05:00 Solution IVPB 12/13/18 06:59 ONCE ONE Sodium Bicarbonate 20 ml/ 1,033.5 mls @ 0 mls/hr 12/12/18 07:30 Lidocaine HCl 270 mg/ Plegisol PERFUSION Cardioplegic Solution .Q0M NR Protocol Per Protocol Diltiazem HCl 50 mg/ Sodium 50 mls @ 5 mls/hr 12/13/18 05:00 Chloride IV .Q10H JOLYNN 5 MG/HR Cefazolin Sodium 2 gm/ Sodium 30 mls @ 60 mls/hr 12/13/18 05:00 Chloride IVPB 12/13/18 05:29 ONCE ONE Cefazolin Sodium 2,000 mg/ 30 mls @ 999 mls/hr 12/13/18 05:00 Sodium Chloride IVPB 12/13/18 05:01 ONCE ONE Cefazolin Sodium 1,000 mg/ 1,000 mls @ 999 mls/hr 12/13/18 05:00 Sodium Chloride IRRIGATION 12/13/18 06:00 ONCE ONE Clevidipine 25 mg/ IV Solution 50 mls @ 2 mls/hr 12/13/18 05:00 IV 12/14/18 04:59 .Q24H ONE Protocol 1 MG/HR Heparin Sodium (Porcine) 5,000 501 mls @ 0 mls/hr 12/13/18 05:00 unit/ Sodium Chloride IV 12/13/18 05:01 ONCE ONE As Directed Insulin Human Regular 100 unit 101 mls @ 0 mls/hr 12/13/18 05:00 / Sodium Chloride IV 12/13/18 05:01 .Q0M ONE Titrate Nitroglycerin/Dextrose 50 mg/ 250 mls @ 1.5 mls/hr 12/13/18 05:00 IV Solution IV 12/14/18 04:59 .Q24H ONE Protocol 5 MCG/MIN Norepinephrine Bitartrate 4 mg 250 mls @ 0 mls/hr 12/13/18 05:00 / Sodium Chloride IV .Q0M JOLYNN Protocol Titrate Papaverine HCl 360 mg/ Sodium 102 mls @ 0 mls/hr 12/13/18 05:00 Chloride IV 12/13/18 05:01 ONCE ONE As Directed Phenylephrine HCl 40 mg/ 254 mls @ 0 mls/hr 12/13/18 05:00 Sodium Chloride IV 12/13/18 05:01 .Q0M ONE Protocol Per Protocol Propofol 1,000 mg/ IV Solution 100 mls @ 0 mls/hr 12/13/18 05:00 IV 12/13/18 05:01 .Q0M ONE Protocol Titrate Protamine Sulfate 250 mg/ IV 25 mls @ 0 mls/hr 12/13/18 05:00 Solution IV 12/13/18 05:01 ONCE ONE As Directed Tranexamic Acid 2,000 mg/ 200 mls @ 0 mls/hr 12/13/18 05:00 Sodium Chloride IV 12/13/18 05:01 .Q0M ONE Protocol Per Protocol Isosorbide Mononitrate 30 mg 12/11/18 12:30 12/12/18 10:34 Imdur PO 30 mg DAILY JOLYNN Administration Levothyroxine Sodium 75 mcg 12/09/18 06:30 12/12/18 06:07 Synthroid PO 75 mcg 0630 JOLYNN Administration Lisinopril 2.5 mg 12/11/18 12:30 12/12/18 10:34 Zestril PO 2.5 mg DAILY JOLYNN Administration Magnesium Sulfate 16.24 meq 12/13/18 05:00 Magnesium Sulfate Syg IV 12/13/18 05:01 ONCE ONE Mannitol 12.5 gm 12/13/18 05:00 Osmitrol 25% IV 12/13/18 05:01 ONCE ONE Mannitol 12.5 gm 12/13/18 05:00 Osmitrol 25% IV 12/13/18 05:01 ONCE ONE Methylprednisolone Sodium Succinate 60 mg 12/08/18 18:00 12/12/18 12:49 Solu-Medrol IV 60 mg Q6HR JOLYNN Administration Metoprolol Succinate 25 mg 12/10/18 09:00 12/12/18 10:33 Toprol Xl PO 25 mg DAILY JOLYNN Administration Metoprolol Tartrate 12.5 mg 12/13/18 05:00 Lopressor PO 12/13/18 05:01 ONCE ONE Mupirocin 1 applic 12/07/18 21:00 12/12/18 09:08 Bactroban Oint TOPICAL 1 applic BID JOLYNN Administration Naloxone HCl 0.2 mg 12/06/18 23:37 Narcan IV Q2M PRN Opioid Reversal Nitroglycerin/Dextrose 1 mg 12/13/18 05:00 Nitro Drip 25 Mg/250 Ml In D5w Pmx IV 12/13/18 05:01 ONCE ONE Pantoprazole Sodium 40 mg 12/10/18 07:30 12/12/18 06:59 Protonix PO 40 mg AC-BRKFST JOLYNN Administration Phenylephrine HCl 1 mg 12/13/18 05:00 Omero-Synephrine Syringe IV 12/13/18 05:01 ONCE ONE Phenylephrine HCl 1 mg 12/13/18 05:00 Omero-Synephrine Syringe IV 12/13/18 05:01 ONCE ONE Phenylephrine HCl 1 mg 12/13/18 05:00 Omero-Synephrine Syringe IV 12/13/18 05:01 ONCE ONE Phenylephrine HCl 1 mg 12/13/18 05:00 Omero-Synephrine Syringe IV 12/13/18 05:01 ONCE ONE Protamine Sulfate 250 mg 12/13/18 05:00 Protamine Sulfate IV 12/13/18 05:01 ONCE ONE Sodium Bicarbonate 50 ml 12/13/18 05:00 Sodium Bicarb 8.4% Syr (1 Meq/Ml) IV 12/13/18 05:01 ONCE ONE Objective - Vital Signs Vital signs: Vital Signs Temp 97.5 F L 12/12/18 04:00 Pulse 81 12/12/18 13:02 Resp 20 12/12/18 12:00 BP 121/58 12/12/18 12:00 Pulse Ox 96 12/12/18 12:00 Intake & Output 12/11/18 12/12/18 12/12/18 18:59 06:59 18:59 Intake Total 209.035 156.625 126.783 Output Total 1325 720 425 Balance -1115.965 -563.375 -298.217 Weight 88.8 kg 88.6 kg 88.6 kg Intake: IV 120 100 80 0.9 KVO 120 100 80 Intake, IV Titration 89.035 56.625 46.783 Amount Insulin Regular 100 unit 89.035 56.625 46.783 In Sodium Chloride 0.9% 100 ml @ Per Protocol IV .Q0M [facility] Rx#:[id number] Output: Urine 1325 720 425 Other: Voiding Method Indwelling Catheter Indwelling Catheter Indwelling Catheter - Exam GENERAL: The patient is sitting up in a chair, alert and oriented x3, no acute distress. HEENT: Pupils are round. EOMI. No scleral icterus. No conjunctival pallor. Normocephalic, atraumatic. CARDIOVASCULAR: S1 and S2 present. Regular, No murmurs, rubs, or gallops. PULMONARY: Respiratory effort increased ,Bilateral bases diminished , Occasional Coarse Scattered rhonchi, diffuse expiratory wheezes ABDOMEN: Soft, nontender, nondistended, normoactive bowel sounds. No palpable organomegaly. MUSCULOSKELETAL: No joint swelling or deformity. EXTREMITIES: No cyanosis, clubbing, or pedal edema. NEUROLOGICAL: Gross neurological examination did not reveal any focal deficits. Flat affect. SKIN: No rashes. - Labs CBC & Chem 7: 12/12/18 04:14 12/12/18 04:14 Labs: Abnormal Lab Results - Last 24 Hours (Table) 12/10/18 12/11/18 12/11/18 Range/Units 02:21 15:09 16:19 WBC (3.8-10.6) k/uL RBC (4.30-5.90) m/uL Hgb (13.0-17.5) gm/dL Hct (39.0-53.0) % Neutrophils # (1.3-7.7) k/uL Lymphocytes # (1.0-4.8) k/uL Carbon Dioxide (22-30) mmol/L BUN (9-20) mg/dL Creatinine (0.66-1.25) mg/dL Glucose (74-99) mg/dL POC Glucose (mg/dL) 149 H 114 H (75-99) mg/dL Calcium (8.4-10.2) mg/dL Crossmatch See Detail 12/11/18 12/11/18 12/11/18 Range/Units 17:20 18:07 20:01 WBC (3.8-10.6) k/uL RBC (4.30-5.90) m/uL Hgb (13.0-17.5) gm/dL Hct (39.0-53.0) % Neutrophils # (1.3-7.7) k/uL Lymphocytes # (1.0-4.8) k/uL Carbon Dioxide (22-30) mmol/L BUN (9-20) mg/dL Creatinine (0.66-1.25) mg/dL Glucose (74-99) mg/dL POC Glucose (mg/dL) 140 H 194 H 176 H (75-99) mg/dL Calcium (8.4-10.2) mg/dL Crossmatch 12/11/18 12/11/18 12/11/18 Range/Units 21:05 21:59 23:03 WBC (3.8-10.6) k/uL RBC (4.30-5.90) m/uL Hgb (13.0-17.5) gm/dL Hct (39.0-53.0) % Neutrophils # (1.3-7.7) k/uL Lymphocytes # (1.0-4.8) k/uL Carbon Dioxide (22-30) mmol/L BUN (9-20) mg/dL Creatinine (0.66-1.25) mg/dL Glucose (74-99) mg/dL POC Glucose (mg/dL) 169 H 114 H 146 H (75-99) mg/dL Calcium (8.4-10.2) mg/dL Crossmatch 12/11/18 12/12/18 12/12/18 Range/Units 23:39 00:24 01:20 WBC (3.8-10.6) k/uL RBC (4.30-5.90) m/uL Hgb (13.0-17.5) gm/dL Hct (39.0-53.0) % Neutrophils # (1.3-7.7) k/uL Lymphocytes # (1.0-4.8) k/uL Carbon Dioxide (22-30) mmol/L BUN (9-20) mg/dL Creatinine (0.66-1.25) mg/dL Glucose (74-99) mg/dL POC Glucose (mg/dL) 189 H 132 H 116 H (75-99) mg/dL Calcium (8.4-10.2) mg/dL Crossmatch 12/12/18 12/12/18 12/12/18 Range/Units 02:11 03:05 04:14 WBC 12.3 H (3.8-10.6) k/uL RBC 3.17 L (4.30-5.90) m/uL Hgb 9.3 L (13.0-17.5) gm/dL Hct 28.9 L (39.0-53.0) % Neutrophils # 11.3 H (1.3-7.7) k/uL Lymphocytes # 0.4 L (1.0-4.8) k/uL Carbon Dioxide (22-30) mmol/L BUN (9-20) mg/dL Creatinine (0.66-1.25) mg/dL Glucose (74-99) mg/dL POC Glucose (mg/dL) 153 H 149 H (75-99) mg/dL Calcium (8.4-10.2) mg/dL Crossmatch 12/12/18 12/12/18 12/12/18 Range/Units 04:14 04:18 05:23 WBC (3.8-10.6) k/uL RBC (4.30-5.90) m/uL Hgb (13.0-17.5) gm/dL Hct (39.0-53.0) % Neutrophils # (1.3-7.7) k/uL Lymphocytes # (1.0-4.8) k/uL Carbon Dioxide 31 H (22-30) mmol/L BUN 48 H (9-20) mg/dL Creatinine 1.26 H (0.66-1.25) mg/dL Glucose 119 H (74-99) mg/dL POC Glucose (mg/dL) 127 H 147 H (75-99) mg/dL Calcium 8.0 L (8.4-10.2) mg/dL Crossmatch 12/12/18 12/12/18 12/12/18 Range/Units 06:16 08:10 09:04 WBC (3.8-10.6) k/uL RBC (4.30-5.90) m/uL Hgb (13.0-17.5) gm/dL Hct (39.0-53.0) % Neutrophils # (1.3-7.7) k/uL Lymphocytes # (1.0-4.8) k/uL Carbon Dioxide (22-30) mmol/L BUN (9-20) mg/dL Creatinine (0.66-1.25) mg/dL Glucose (74-99) mg/dL POC Glucose (mg/dL) 158 H 135 H 191 H (75-99) mg/dL Calcium (8.4-10.2) mg/dL Crossmatch 12/12/18 12/12/18 12/12/18 Range/Units 10:55 10:59 12:19 WBC (3.8-10.6) k/uL RBC (4.30-5.90) m/uL Hgb (13.0-17.5) gm/dL Hct (39.0-53.0) % Neutrophils # (1.3-7.7) k/uL Lymphocytes # (1.0-4.8) k/uL Carbon Dioxide (22-30) mmol/L BUN (9-20) mg/dL Creatinine (0.66-1.25) mg/dL Glucose (74-99) mg/dL POC Glucose (mg/dL) 236 H 179 H (75-99) mg/dL Calcium (8.4-10.2) mg/dL Crossmatch See Detail 12/12/18 Range/Units 14:05 WBC (3.8-10.6) k/uL RBC (4.30-5.90) m/uL Hgb (13.0-17.5) gm/dL Hct (39.0-53.0) % Neutrophils # (1.3-7.7) k/uL Lymphocytes # (1.0-4.8) k/uL Carbon Dioxide (22-30) mmol/L BUN (9-20) mg/dL Creatinine (0.66-1.25) mg/dL Glucose (74-99) mg/dL POC Glucose (mg/dL) 211 H (75-99) mg/dL Calcium (8.4-10.2) mg/dL Crossmatch Assessment and Plan Assessment: Acute non-ST elevation myocardial infarction, status post cardiac cath with severe 2 vessel CAD, CABG pending -Acute hypoxic respiratory failure secondary to Acute systolic Congestive heart failure -Acute exacerbation COPD, poor FEV1,< 30% -Acute renal failure ,prerenal azotemia secondary to CHF -Possible chronic kidney disease from diabetic nephropathy -Diabetes mellitus II -Hyperlipidemia -Hypertension -Hypothyroidism -PTSD and bipolar disorder -Nicotine dependence The impression and plan of care has been dictated as directed. CABG scheduled for tomorrow .Maintain nebulized bronchodilators, Perforomist,Pulmicort, IV push steroids. Maintained insulin drip with close monitoring of Accu-Cheks. Further recommendations to follow. : I performed a history and examination of this patient, discussed the same with the dictator. I agree with the dictator's note ,documented as a scribe. Any additional findings or plans will be noted.
[2018-12-12 16:12] LABS: Glucose,Whole Blood 148 mg/dL (75-99)
[2018-12-12 17:19] LABS: Glucose,Whole Blood 110 mg/dL (75-99)
[2018-12-12 18:32] LABS: Glucose,Whole Blood 213 mg/dL (75-99)
[2018-12-12 19:07] LABS: Glucose,Whole Blood 254 mg/dL (75-99)
[2018-12-12 20:05] LABS: Glucose,Whole Blood 207 mg/dL (75-99)
[2018-12-12 21:00] LABS: Glucose,Whole Blood 160 mg/dL (75-99)
[2018-12-12 21:57] LABS: Glucose,Whole Blood 111 mg/dL (75-99)
[2018-12-12 23:17] LABS: Glucose,Whole Blood 135 mg/dL (75-99)
[2018-12-13 00:04] LABS: Glucose,Whole Blood 222 mg/dL (75-99)
[2018-12-13] MEDS: methylPREDNISolone SOD SUCCI 125 MG/2 ML VIAL IV SCH ×3 (00:08→18:11)
[2018-12-13] MEDS: HEPARIN SODIUM,PORCINE 5,000 UNIT/ML 1 ML VIAL SQ SCH (00:08)
[2018-12-13 01:14] LABS: Glucose,Whole Blood 205 mg/dL (75-99)
[2018-12-13 02:15] LABS: Glucose,Whole Blood 176 mg/dL (75-99)
[2018-12-13 03:14] LABS: Glucose,Whole Blood 132 mg/dL (75-99)
[2018-12-13 04:20] LABS: Glucose,Whole Blood 80 mg/dL (75-99)
[2018-12-13 04:38] LABS: Basophils % (A) 0 %; Eosinophils # (A) 0.1 k/uL (0-0.7); Eosinophils % (A) 0 %; HCT 28.4 % (39.0-53.0); HGB 9.2 gm/dL (13.0-17.5); Lymphocytes # (A) 0.5 k/uL (1.0-4.8); Lymphocytes % (A) 3 %; MCH 29.3 pg (25.0-35.0); MCHC 32.5 g/dL (31.0-37.0); MCV 90.1 fL (80.0-100.0); Mean Platelet Volume 6.5; Monocytes # (A) 0.9 k/uL (0-1.0); Monocytes % (A) 6 %; Neutrophils # (A) 12.7 k/uL (1.3-7.7); Neutrophils % (A) 89 %; Platelet Count 427 k/uL (150-450); RBC 3.15 m/uL (4.30-5.90); RDW 12.6 % (11.5-15.5); WBC 14.2 k/uL (3.8-10.6)
[2018-12-13 04:50] LABS: Magnesium 2.3 mg/dL (1.6-2.3); Phosphorus 4.1 mg/dL (2.5-4.5); Potassium 4.3 mmol/L (3.5-5.1)
[2018-12-13] MEDS ORDERED: ceFAZolin 2 GM in SODIUM CHLORIDE 0.9% 30 ML IVPB ONE (05:00)
[2018-12-13] MEDS ORDERED: METOPROLOL TARTRATE 12.5 MG TAB PO ONE (05:00)
[2018-12-13] MEDS ORDERED: PHENYLEPHRINE-0.9% NACL SYG 1 MG/10 ML SYRINGE IV ONE ×4 (05:00)
[2018-12-13] MEDS ORDERED: NOREPINEPHRINE 4 MG in SODIUM CHLORIDE 0.9% 250 ML IV SCH (05:00)
[2018-12-13] MEDS ORDERED: PROTAMINE SULFATE 250 MG in EMPTY BAG 1 BAG IV ONE (05:00)
[2018-12-13] MEDS ORDERED: NITROGLYCERIN-D5W PMX 25 MG/250 ML BTL IV ONE (05:00)
[2018-12-13] MEDS ORDERED: CLEVIDIPINE BUTYRATE 25 MG in EMPTY BAG 1 BAG IV ONE (05:00)
[2018-12-13] MEDS ORDERED: ALBUMIN HUMAN 25% 50 ML in EMPTY BAG 1 BAG IVPB ONE (05:00)
[2018-12-13] MEDS ORDERED: ASPIRIN 325 MG TAB PO ONE (05:00)
[2018-12-13] MEDS ORDERED: PROPOFOL 1,000 MG in EMPTY BAG 1 BAG IV ONE (05:00)
[2018-12-13] MEDS ORDERED: PHENYLEPHRINE 40 MG in SODIUM CHLORIDE 0.9% 250 ML IV ONE (05:00)
[2018-12-13] MEDS ORDERED: PROTAMINE SULFATE 10 MG/ML 25 ML VIAL IV ONE ×2 (05:00→07:41)
[2018-12-13] MEDS ORDERED: ALBUMIN HUMAN 5% 500 ML in EMPTY BAG 1 BAG IVPB ONE (05:00)
[2018-12-13] MEDS ORDERED: TRANEXAMIC ACID 2,000 MG in SODIUM CHLORIDE 0.9% 180 ML IV ONE ×2 (05:00→09:00)
[2018-12-13] MEDS ORDERED: SODIUM BICARB 8.4% 50 ML SYR (1 MEQ/ML) IV ONE (05:00)
[2018-12-13] MEDS ORDERED: PAPAVERINE 360 MG in SODIUM CHLORIDE 0.9% 90 ML IV ONE (05:00)
[2018-12-13] MEDS ORDERED: INSULIN REGULAR 100 UNIT in SODIUM CHLORIDE 0.9% 100 ML IV ONE (05:00)
[2018-12-13] MEDS ORDERED: CALCIUM CHLORIDE 100 MG/ML 10 ML SYRINGE IVP ONE (05:00)
[2018-12-13] MEDS ORDERED: ATORVASTATIN 10 MG TAB PO ONE (05:00)
[2018-12-13] MEDS ORDERED: CHLORHEXIDINE GLUCONATE 15 ML CUP MUCOUS MEM ONE (05:00)
[2018-12-13] MEDS ORDERED: DILTIAZEM 50 MG in SODIUM CHLORIDE 0.9% 40 ML IV SCH (05:00)
[2018-12-13] MEDS ORDERED: HEPARIN SODIUM 1,000 UN/ML (10ML VL) IV ONE (05:00)
[2018-12-13] MEDS ORDERED: MANNITOL 25% 12.5 GM/50 ML VIAL IV ONE ×2 (05:00)
[2018-12-13] MEDS ORDERED: ceFAZolin 2,000 MG in SODIUM CHLORIDE 0.9% 30 ML IVPB ONE (05:00)
[2018-12-13] MEDS ORDERED: HEPARIN SODIUM,PORCINE 5,000 UNIT in SODIUM CHLORIDE 0.9% 500 ML 500 ML IV ONE (05:00)
[2018-12-13] MEDS ORDERED: MAGNESIUM SULFATE SYG 4.06 MEQ/ML SYRINGE IV ONE (05:00)
[2018-12-13] MEDS ORDERED: NITROGLYCERIN-D5W PMX 50 MG in DEXTROSE/WATER 1 250ML.BAG IV ONE (05:00)
[2018-12-13 05:15] LABS: Glucose,Whole Blood 112 mg/dL (75-99)
[2018-12-13] MEDS: LEVOTHYROXINE 75 MCG TAB PO SCH (06:00)
[2018-12-13 06:17] LABS: Glucose,Whole Blood 171 mg/dL (75-99)
[2018-12-13] MEDS: IPRATROPIUM-ALBUTEROL 3 ML NEB INHALATION SCH ×3 (07:33→19:14)
[2018-12-13] MEDS: BUDESONIDE 1 MG/2 ML NEBU INHALATION SCH (07:33)
[2018-12-13] MEDS: FORMOTEROL FUMARATE 20 MCG/2 ML NEBU INHALATION SCH (07:33)
[2018-12-13] MEDS ORDERED: LACTATED RINGERS 1,000 ML BAG IV ONE (07:41)
[2018-12-13] MEDS ORDERED: MAGNESIUM SULFATE 4 MEQ/ML 10ML VIAL ONE (07:41)
[2018-12-13] MEDS ORDERED: SODIUM CHLORIDE 0.9% 250 ML BAG ONE (07:41)
[2018-12-13] MEDS ORDERED: HEPARIN SODIUM,PORCINE 10,000 UNIT/ML 1 ML VIAL ONE (07:41)
[2018-12-13] MEDS ORDERED: TRANEXAMIC ACID 1,000 MG/10 ML VIAL ONE (07:41)
[2018-12-13] MEDS ORDERED: fentaNYL (PF) 50 MCG/ML 50 ML VIAL ONE (07:41)
[2018-12-13] MEDS ORDERED: fentaNYL (PF) 50 MCG/ML 2 ML AMP ONE (07:41)
[2018-12-13] MEDS ORDERED: MIDAZOLAM 2 MG/2 ML VIAL ONE (07:41)
[2018-12-13] MEDS ORDERED: VECURONIUM 10 MG VIAL IV ONE (07:41)
[2018-12-13] MEDS ORDERED: ALBUMIN HUMAN 5% 500 ML VIAL IVPB ONE (07:41)
--- NOTE | 2018-12-13 07:42 | XR ---
EXAMINATION TYPE: XR chest 1V portable DATE OF EXAM: 12/13/2018 COMPARISON: 12/11/2018 INDICATION: COPD exacerbation, fluid overload TECHNIQUE: Single frontal view of the chest is obtained. FINDINGS: The heart size is normal. The pulmonary vasculature is prominent. There is diffuse increased central lung markings and increased left lower lobe lung markings. Finding s can be compatible some atypical pulmonary edema. Some atelectasis should be considered. Developing left lower lobe pneumonia should be considered. IMPRESSION: 1. Prominent pulmonary vascular markings with more focal infiltrate in the left lower lobe but some i nfiltrate present in the right lower lobe as well. Findings are felt to reflect volume overload with some atypical pulmonary edema. Developing pneumonia and atelectasis should also be considered.
[2018-12-13 08:29] LABS: ABG Base Excess 4.1 mmol/L; ABG HCO3 28 mmol/L (21-25); ABG PCO2 40 mmHg (35-45); ABG PH 7.46 (7.35-7.45); ABG PO2 266 mmHg (83-108); ABG Potassium Whole Blood 4.4 mmol/L (3.4-4.5); ABG Sodium Whole Blood 137 mmol/L (135-146); ABG TCO2 30 mmol/L (19-24)
[2018-12-13] MEDS: ceFAZolin 1,000 MG in SODIUM CHLORIDE 0.9% IRRIGATIO 1,000 ML IRRIGATION ONE ×2 (09:11→10:58)
[2018-12-13 09:49] LABS: ABG Base Excess 3.4 mmol/L; ABG HCO3 29 mmol/L (21-25); ABG Oxygen Saturation 97.9 % (94-97); ABG PCO2 48 mmHg (35-45); ABG PH 7.39 (7.35-7.45); ABG PO2 102 mmHg (83-108); ABG Potassium Whole Blood 4.5 mmol/L (3.4-4.5); ABG Sodium Whole Blood 137 mmol/L (135-146); ABG TCO2 30 mmol/L (19-24)
[2018-12-13 10:33] LABS: ABG Base Excess 2.3 mmol/L; ABG HCO3 28 mmol/L (21-25); ABG Oxygen Saturation 99.8 % (94-97); ABG PCO2 45 mmHg (35-45); ABG PH 7.39 (7.35-7.45); ABG PO2 167 mmHg (83-108); ABG Sodium Whole Blood 138 mmol/L (135-146); ABG TCO2 29 mmol/L (19-24)
[2018-12-13 11:23] LABS: ABG HCO3 25 mmol/L (21-25); ABG Oxygen Saturation 98.3 % (94-97); ABG PCO2 47 mmHg (35-45); ABG PH 7.33 (7.35-7.45); ABG PO2 107 mmHg (83-108); ABG Sodium Whole Blood 139 mmol/L (135-146); ABG TCO2 26 mmol/L (19-24)
[2018-12-13] MEDS ORDERED: Phosphorus Replacement Protoco 1 EACH MISC MISCELLANE PRN (12:09)
[2018-12-13] MEDS ORDERED: DEXTROSE 5% IN WATER 100 ML with AMIODARONE 150 MG IV PRN (12:09)
[2018-12-13] MEDS ORDERED: BENZOCAINE/MENTHOL LOZENG 1 EACH LOZENGE MUCOUS MEM PRN (12:09)
[2018-12-13] MEDS ORDERED: ONDANSETRON 4 MG/2 ML VIAL IVP PRN (12:09)
[2018-12-13] MEDS ORDERED: METOCLOPRAMIDE 5 MG/ML 2 ML VIAL IVP PRN (12:09)
[2018-12-13] MEDS ORDERED: PROPOFOL 1,000 MG in EMPTY BAG 1 BAG IV SCH (12:09)
[2018-12-13] MEDS ORDERED: Potassium Replacement Protocol 1 EACH MISC MISCELLANE PRN (12:09)
[2018-12-13] MEDS ORDERED: AMIODARONE 450 MG in DEXTROSE 5% IN WATER 250 ML IV PRN ×2 (12:09)
[2018-12-13] MEDS ORDERED: INSULIN REGULAR 100 UNIT in SODIUM CHLORIDE 0.9% 100 ML IV SCH (12:09)
[2018-12-13] MEDS ORDERED: IPRATROPIUM-ALBUTEROL 3 ML NEB INHALATION PRN (12:09)
[2018-12-13] MEDS ORDERED: CALCIUM CHLORIDE 1,000 MG in SODIUM CHLORIDE 0.9% 100 ML IV PRN (12:09)
[2018-12-13] MEDS ORDERED: NITROGLYCERIN-D5W PMX 50 MG in DEXTROSE/WATER 1 250ML.BAG IV SCH (12:09)
[2018-12-13] MEDS ORDERED: Magnesium Replacement Protocol 1 EACH MISC MISCELLANE PRN (12:09)
--- NOTE | 2018-12-13 12:13 | P.OP ---
Date of Procedure: 12/13/18 Preoperative Diagnosis: Coronary artery disease, subendocardial infarction, acute systolic heart failure Postoperative Diagnosis: Same Procedure(s) Performed: Off-pump CABG 4 with sequential FLORES to diagonal and LAD and sequential vein graft to posterior descending and posterior lateral branches of the circumflex coronary artery with endovascular vein harvest Anesthesia: BROOKLYNN Surgeon: Kiko Horn Procedures Rn #1: Bertrand Sargent Procedures Rn #2: Catarino Cordoba Estimated Blood Loss (ml): 500 IV fluids (ml): 3,000 Urine output (ml): 200 Pathology: none sent Condition: stable Disposition: ICU Indications for Procedure: 68-year-old male presented with chest pain and subendocardial infarction over the weekend. He was found to be in severe CHF and hypoxic. Cardiac catheterization demonstrated severe three-vessel coronary artery disease with a nondominant right coronary artery. Left ventricular function was moderately diminished. There was mild to moderate mitral regurgitation by echocardiography. Patient was stabilized in the ICU. He was aggressively diuresed for his acute congestive heart failure. Pulmonary follow the patient closely and once he was cleared by pulmonary was scheduled for coronary bypass surgery on an urgent basis. Operative Findings: Initial ALYSON demonstrated mild to moderate mitral regurgitation and mild tricuspid regurgitation. Right ventricle was somewhat collapsed due to progressive diuresis of the patient. The lungs were somewhat atelectatic. There were small bilateral pleural effusions present. Coronary targets were reasonable but diffusely diseased. Overall ventricular function of the left ventricle was near normal. Saphenous vein was an excellent conduit. The FLORES was a good conduit although it was densely adherent especially inferiorly due to marketed inflammatory change of the chest wall. On completion of the case, echocardiogram demonstrated improved right ventricular filling due to rehydration of the patient with unchanged mild tricuspid regurgitation left ventricular function was near normal mitral regurgitation was trivial. Description of Procedure: The patient was brought to the operating room, supine on the operating table, anesthetized and intubated. After torso and lower extremities were sterilely prepped and draped. Saphenous vein was harvested from the left lower extremity from mid calf to the groin and was of reasonable quality. The left greater saphenous vein was the vein harvested and endovascular harvest technique was used. Simultaneous sternotomy was performed and the left hemisternum was retracted upwards. Left pleural space was opened widely and the left internal mammary artery was harvested on a vascularized pedicle left intact on its origin from the subclavian and divided distally. Left pleural space was drained with 32-Samoan chest tube. Standard sternal retractor was placed. Right pleural space was opened and drained with a 32-Samoan chest tube. Pericardium was opened in the midline and the heart was exposed with pericardial sutures. Patient was systemically heparinized. The FLORES was tunneled into the pericardial space and used to sequentially graft the diagonal and LAD. Suction stabilization was used during distal anastomosis. The diagonal was stabilized first after preparing the distal end of the FLORES. The diagonal was a 1.75 mm vessel with diffuse disease present. It was opened in its fairly proximal portion. Blood flow was controlled with a 1.5 mm flow through. A longitudinal incision was made in the mid FLORES for the anastomosis and a [id number] anastomosis between the FLORES and the diagonal was performed with running 8-0 Prolene suture. On completion of the anastomosis flow through was removed effectively probing the proximal distal portion anastomosis. Suture was tied with good result and hemostasis and the inflow was open. The TODD pedicle was tacked surrounding epicardium with 6-0 silk. Blood flow through the end of the FLORES was controlled with a bulldog clamp. Next the LAD was stabilized. It was grafted in its distal third. It was heavily disease proximal to this. It was opened and was a 1.75 mm vessel. Blood flow was controlled 1.5 L flow through. End to side anastomosis between the FLORES and the LAD was performed with running 8-0 Prolene suture. On completion anastomosis, the flow through was removed effectively probing the proximal distal portion of the anastomosis. Suture was tied with good result and hemostasis and the inflow was open. Graft was noted to lay well. TODD pedicle was tacked surrounding epicardium with 6-0 silk. Next the saphenous vein was prepared. Measurements were taken and a was shorter to bring the saphenous from the right and left to the 2 inferior wall vessels. The vein was cut to appropriate length and loaded on passport anastomotic connector. Proximal anastomosis was performed using the passport anastomotic connector to the midline of the ascending aorta proximally. Was brought around the right side of the heart to the inferior wall. The inferior wall was exposed. The posterior descending coronary artery was stabilized. It was dissected out and opened proximally where was a 1.5 mm vessel. Blood flow was controlled with a 1.5 mm flow through. Longitudinal incision was made in the vein graft and the proximal of the 2 distal venous anastomoses was performed with running 7-0 Prolene suture. On completion anastomosis, flow through was removed effectively probing the proximal distal portion of the anastomosis. Suture was tied with good result and hemostasis. Bulldog was moved proximally to distally on the vein graft and inflow open to the PDA. The graft lay well. Next the posterior lateral was stabilized. It was opened longitudinally and blood flow control with a 1.5 mm flow through. It was a 1.5-1.75 mm vessel. Anastomosis was constructed in end-to-side fashion with running 7-0 Prolene suture. On completion anastomosis, the flow through was removed effectively probing the proximal distal portion anastomosis. Suture was tied with good result and hemostasis and the inflow was open. Sequential graft was noted to lay well and be of good length. Heart was lowered into anatomic position. Good hemostasis was noted throughout. Heparin was reversed with protamine. Chest was irrigated with antibiotic solution. The mediastinum was drained with 36-Samoan chest tube. Sternum was closed with 8 sternal wires. The fascia with 0 Ethibond. Subcutaneous and subcuticular layers with layers of Vicryl suture. Skin glue and dry sterile dressings were applied the patient was transferred to ICU in stable condition.
[2018-12-13 13:06] LABS: Glucose,Whole Blood 136 mg/dL (75-99)
[2018-12-13 13:08] LABS: Basophils % (A) 0 %; Eosinophils % (A) 0 %; HCT 21.5 % (39.0-53.0); Lymphocytes # (A) 0.6 k/uL (1.0-4.8); Lymphocytes % (A) 4 %; MCH 30.1 pg (25.0-35.0); MCHC 32.2 g/dL (31.0-37.0); MCV 93.6 fL (80.0-100.0); Mean Platelet Volume 6.9; Monocytes # (A) 0.6 k/uL (0-1.0); Monocytes % (A) 5 %; Neutrophils % (A) 90 %; Platelet Count 261 k/uL (150-450); RBC 2.29 m/uL (4.30-5.90); RDW 13.1 % (11.5-15.5); WBC 13.4 k/uL (3.8-10.6)
[2018-12-13 13:09] LABS: ABG Base Excess 0.8 mmol/L; ABG HCO3 26 mmol/L (21-25); ABG Oxygen Saturation 98.8 % (94-97); ABG PCO2 47 mmHg (35-45); ABG PH 7.36 (7.35-7.45); ABG PO2 124 mmHg (83-108); ABG TCO2 28 mmol/L (19-24)
--- NOTE | 2018-12-13 13:15 | XR ---
EXAMINATION TYPE: XR chest 1V portable DATE OF EXAM: 12/13/2018 COMPARISON: 12/13/2018 INDICATION: Post cardiac surgery TECHNIQUE: Single frontal view of the chest is obtained. Images obtained in the supine view. FINDINGS: The heart size is normal. The pulmonary vasculature is prominent. There is diffuse increased infiltrates over the bilateral lungs related to pulmonary edema. Small right pleural effusion may be present. An endotracheal tube is present with the tip 6.7 cm above the luis. Shorter-Colin catheter is present with the tip in the main pulmonary artery. Bilateral chest tubes are present. No pneumothorax is evid ent. Small pneumothorax may not be visualized in the supine view. Nasogastric tube transverses the th orax the tip in left upper quadrant of the abdomen. IMPRESSION: 1. Diffuse increased infiltrates likely related to pulmonary edema. 2. Multiple lines and catheters discussed above. 3. Small right pleural effusion may be present.
[2018-12-13] MEDS: ACETAMINOPHEN IV (For NPO) 1,000 MG in EMPTY BAG 1 BAG IVPB SCH ×2 (13:17→18:11)
--- NOTE | 2018-12-13 13:18 | PN ---
PROGRESS NOTE Faisal is a 68-year-old gentleman who was admitted to hospital with acute myocardial infarction. Underwent catheterization and was found to have 2 vessel coronary artery disease. He underwent bypass surgery today. Tolerated it well. Currently intubated on vent. Remains in sinus rhythm and hemodynamically stable. The patient is intubated and on vent. PHYSICAL EXAMINATION: On exam, his blood pressure is 111/55. Chest exam reveals diminished air entry at the bases. Heart exam reveals first and second heart sounds. No gallop. Examination of the extremities reveals pulses are palpable. Blood gases show a pH of 7.3, pO2 of 107, O2 sat is 98%. Hemoglobin from this morning was 9.2. ASSESSMENT: 1. Two-vessel coronary artery disease. 2. Ischemic cardiomyopathy. 3. Congestive heart failure. PLAN: Patient underwent bypass surgery, still intubated on vent. Continue with supportive care. I will continue aspirin, Lipitor, Plavix, Lopressor. Blood pressure tolerating we should institute an JOSE M inhibitor. MMODL / IJN: [id number] /
[2018-12-13 13:19] LABS: Ionized Calcium 4.2 mg/dL (4.5-5.3)
[2018-12-13 13:27] LABS: Albumin 3.3 g/dL (3.5-5.0); Calcium 7.1 mg/dL (8.4-10.2); Magnesium 2.6 mg/dL (1.6-2.3); Potassium 4.4 mmol/L (3.5-5.1); Total Bilirubin 0.5 mg/dL (0.2-1.3); Total Protein 5.3 g/dL (6.3-8.2)
--- NOTE | 2018-12-13 13:28 | P.PN ---
Subjective Progress Note Date: 12/13/18 On 12/13/2018, I'm seeing this patient in the intensive care unit following his coronary artery bypass surgery. The patient is postop day #0. The patient was brought into the ICU sedated, intubated on mechanical ventilator. Currently, the patient is an assist-control mode of ventilation at the rate of 12, tidal volume of 500 and FiO2 of 50% and a PEEP of 5. The blood gases that were obtained immediately after his arrival showed a pH of 7.35 with a pCO2 of 46 and pO2 124. Chest x-ray done in the ICU shows some pulmonary vessel congestion. ET tube is in a good location. Pembroke-Colin catheter in place. All of the tubes and the chest and the patient has [address] in place. No significant orotracheal secretions. He will pressures around 26. No major bronchospasm wheezing on physical examination. Hemodynamically, the patient is stable and the patient has a PA pressure of 52/26 and the patient's cardiac index is at 2.3. The patient has minimal output from the chest tube. His intraoperative course has been essentially uneventful. No issues with hypotension. No issues with hemodynamic instability. He is producing adequate amount of urine output. The cardiac rhythm is sinus. The sternum stable clean and intact. No other significant events otherwise for now. Objective - Vital Signs Vital signs: Vital Signs Temp 97.8 F 12/13/18 04:00 Pulse 81 12/13/18 04:00 Resp 18 12/13/18 04:00 BP 111/55 12/13/18 05:00 Pulse Ox 96 12/13/18 04:00 Intake & Output 12/12/18 12/13/18 12/13/18 18:59 06:59 18:59 Intake Total 225.300 863.709 33 Output Total 750 740 710 Balance -524.700 123.709 -677 Weight 88.6 kg 94 kg Intake: IV 150 90 33 0.9 KVO 150 90 Intake, IV Titration 75.300 53.709 Amount Insulin Regular 100 unit 75.300 53.709 In Sodium Chloride 0.9% 100 ml @ Per Protocol IV .Q0M [facility] Rx#:[id number] Oral 720 Output: Urine 750 740 210 Estimated Blood Loss 500 Other: Voiding Method Indwelling Catheter Indwelling Catheter - Exam Gen. appearance, comfortable likely distress. The patient is was sedated intubated on a mechanical ventilator. Orogastric and orotracheal tube in place. The patient also has a right IJ Pembroke-Colin catheter which is also in place. Synchronous with the mechanical ventilator. Head exam was generally normal. There was no scleral icterus or corneal arcus. Mucous membranes were moist. Neck was supple and without jugular venous distension, thyromegaly, or carotid bruits. Carotids were easily palpable bilaterally. There was no adenopathy. The patient has a right IJ Pembroke-Colin catheter in the cordis is in place. Lungs sounds are diminished bilaterally and scattered rhonchi. Otherwise no major wheezing. The sternum is stable clean and intact and the patient has [address] Cardiac exam revealed the PMI to be normally situated and sized. The rhythm was regular and no extrasystoles were noted during several minutes of auscultation. The first and second heart sounds were normal and physiologic splitting of the second heart sound was noted. There were no murmurs, rubs, clicks, or gallops. Abdominal exam revealed normal bowel sounds. The abdomen was soft, non-tender, and without masses, organomegaly, or appreciable enlargement of the abdominal aorta. Examination of the extremities revealed easily palpable radial, femoral and pedal pulses. There was no cyanosis, clubbing or edema. Examination of the skin revealed no evidence of significant rashes, suspicious appearing nevi or other concerning lesions. Neurologically the patient is sedated. - Labs CBC & Chem 7: 12/13/18 04:08 12/13/18 04:08 Labs: Abnormal Lab Results - Last 24 Hours (Table) 12/12/18 12/12/18 12/12/18 Range/Units 10:55 14:05 16:09 WBC (3.8-10.6) k/uL RBC (4.30-5.90) m/uL Hgb (13.0-17.5) gm/dL Hct (39.0-53.0) % Neutrophils # (1.3-7.7) k/uL Lymphocytes # (1.0-4.8) k/uL ABG pH (7.35-7.45) ABG pCO2 (35-45) mmHg ABG pO2 (83-108) mmHg ABG HCO3 (21-25) mmol/L ABG Total CO2 (19-24) mmol/L ABG O2 Saturation (94-97) % ABG Hematocrit (34.0-46.0) % ABG Ionized Calcium (4.5-5.3) mg/dL ABG Glucose (75-99) mg/dL ABG Lactic Acid (0.5-1.6) mmol/L Hemoglobin (13.0-17.5) gm/dL Sodium (137-145) mmol/L BUN (9-20) mg/dL POC Glucose (mg/dL) 211 H 148 H (75-99) mg/dL Calcium (8.4-10.2) mg/dL Arterial Blood Glucose (75-99) mg/dL Crossmatch See Detail 12/12/18 12/12/18 12/12/18 Range/Units 17:16 18:17 19:04 WBC (3.8-10.6) k/uL RBC (4.30-5.90) m/uL Hgb (13.0-17.5) gm/dL Hct (39.0-53.0) % Neutrophils # (1.3-7.7) k/uL Lymphocytes # (1.0-4.8) k/uL ABG pH (7.35-7.45) ABG pCO2 (35-45) mmHg ABG pO2 (83-108) mmHg ABG HCO3 (21-25) mmol/L ABG Total CO2 (19-24) mmol/L ABG O2 Saturation (94-97) % ABG Hematocrit (34.0-46.0) % ABG Ionized Calcium (4.5-5.3) mg/dL ABG Glucose (75-99) mg/dL ABG Lactic Acid (0.5-1.6) mmol/L Hemoglobin (13.0-17.5) gm/dL Sodium (137-145) mmol/L BUN (9-20) mg/dL POC Glucose (mg/dL) 110 H 213 H 254 H (75-99) mg/dL Calcium (8.4-10.2) mg/dL Arterial Blood Glucose (75-99) mg/dL Crossmatch 12/12/18 12/12/18 12/12/18 Range/Units 20:03 20:57 21:54 WBC (3.8-10.6) k/uL RBC (4.30-5.90) m/uL Hgb (13.0-17.5) gm/dL Hct (39.0-53.0) % Neutrophils # (1.3-7.7) k/uL Lymphocytes # (1.0-4.8) k/uL ABG pH (7.35-7.45) ABG pCO2 (35-45) mmHg ABG pO2 (83-108) mmHg ABG HCO3 (21-25) mmol/L ABG Total CO2 (19-24) mmol/L ABG O2 Saturation (94-97) % ABG Hematocrit (34.0-46.0) % ABG Ionized Calcium (4.5-5.3) mg/dL ABG Glucose (75-99) mg/dL ABG Lactic Acid (0.5-1.6) mmol/L Hemoglobin (13.0-17.5) gm/dL Sodium (137-145) mmol/L BUN (9-20) mg/dL POC Glucose (mg/dL) 207 H 160 H 111 H (75-99) mg/dL Calcium (8.4-10.2) mg/dL Arterial Blood Glucose (75-99) mg/dL Crossmatch 12/12/18 12/13/18 12/13/18 Range/Units 23:03 00:02 01:11 WBC (3.8-10.6) k/uL RBC (4.30-5.90) m/uL Hgb (13.0-17.5) gm/dL Hct (39.0-53.0) % Neutrophils # (1.3-7.7) k/uL Lymphocytes # (1.0-4.8) k/uL ABG pH (7.35-7.45) ABG pCO2 (35-45) mmHg ABG pO2 (83-108) mmHg ABG HCO3 (21-25) mmol/L ABG Total CO2 (19-24) mmol/L ABG O2 Saturation (94-97) % ABG Hematocrit (34.0-46.0) % ABG Ionized Calcium (4.5-5.3) mg/dL ABG Glucose (75-99) mg/dL ABG Lactic Acid (0.5-1.6) mmol/L Hemoglobin (13.0-17.5) gm/dL Sodium (137-145) mmol/L BUN (9-20) mg/dL POC Glucose (mg/dL) 135 H 222 H 205 H (75-99) mg/dL Calcium (8.4-10.2) mg/dL Arterial Blood Glucose (75-99) mg/dL Crossmatch 12/13/18 12/13/18 12/13/18 Range/Units 02:01 02:59 04:08 WBC 14.2 H (3.8-10.6) k/uL RBC 3.15 L (4.30-5.90) m/uL Hgb 9.2 L (13.0-17.5) gm/dL Hct 28.4 L (39.0-53.0) % Neutrophils # 12.7 H (1.3-7.7) k/uL Lymphocytes # 0.5 L (1.0-4.8) k/uL ABG pH (7.35-7.45) ABG pCO2 (35-45) mmHg ABG pO2 (83-108) mmHg ABG HCO3 (21-25) mmol/L ABG Total CO2 (19-24) mmol/L ABG O2 Saturation (94-97) % ABG Hematocrit (34.0-46.0) % ABG Ionized Calcium (4.5-5.3) mg/dL ABG Glucose (75-99) mg/dL ABG Lactic Acid (0.5-1.6) mmol/L Hemoglobin (13.0-17.5) gm/dL Sodium (137-145) mmol/L BUN (9-20) mg/dL POC Glucose (mg/dL) 176 H 132 H (75-99) mg/dL Calcium (8.4-10.2) mg/dL Arterial Blood Glucose (75-99) mg/dL Crossmatch 12/13/18 12/13/18 12/13/18 Range/Units 04:08 05:01 06:04 WBC (3.8-10.6) k/uL RBC (4.30-5.90) m/uL Hgb (13.0-17.5) gm/dL Hct (39.0-53.0) % Neutrophils # (1.3-7.7) k/uL Lymphocytes # (1.0-4.8) k/uL ABG pH (7.35-7.45) ABG pCO2 (35-45) mmHg ABG pO2 (83-108) mmHg ABG HCO3 (21-25) mmol/L ABG Total CO2 (19-24) mmol/L ABG O2 Saturation (94-97) % ABG Hematocrit (34.0-46.0) % ABG Ionized Calcium (4.5-5.3) mg/dL ABG Glucose (75-99) mg/dL ABG Lactic Acid (0.5-1.6) mmol/L Hemoglobin (13.0-17.5) gm/dL Sodium 135 L (137-145) mmol/L BUN 50 H (9-20) mg/dL POC Glucose (mg/dL) 112 H 171 H (75-99) mg/dL Calcium 8.0 L (8.4-10.2) mg/dL Arterial Blood Glucose (75-99) mg/dL Crossmatch 12/13/18 12/13/18 12/13/18 Range/Units 08:29 09:48 10:32 WBC (3.8-10.6) k/uL RBC (4.30-5.90) m/uL Hgb (13.0-17.5) gm/dL Hct (39.0-53.0) % Neutrophils # (1.3-7.7) k/uL Lymphocytes # (1.0-4.8) k/uL ABG pH 7.46 H (7.35-7.45) ABG pCO2 48 H (35-45) mmHg ABG pO2 266 H 167 H (83-108) mmHg ABG HCO3 28 H 29 H 28 H (21-25) mmol/L ABG Total CO2 30 H 30 H 29 H (19-24) mmol/L ABG O2 Saturation 100.0 H 97.9 H 99.8 H (94-97) % ABG Hematocrit 26 L 26 L 23 L (34.0-46.0) % ABG Ionized Calcium 4.2 L 4.3 L 4.1 L (4.5-5.3) mg/dL ABG Glucose 183 H 221 H 189 H (75-99) mg/dL ABG Lactic Acid 1.8 H (0.5-1.6) mmol/L Hemoglobin 8.3 L 8.5 L 7.5 L (13.0-17.5) gm/dL Sodium (137-145) mmol/L BUN (9-20) mg/dL POC Glucose (mg/dL) (75-99) mg/dL Calcium (8.4-10.2) mg/dL Arterial Blood Glucose 183 H 221 H 189 H (75-99) mg/dL Crossmatch 12/13/18 12/13/18 12/13/18 Range/Units 11:22 12:36 12:50 WBC (3.8-10.6) k/uL RBC (4.30-5.90) m/uL Hgb (13.0-17.5) gm/dL Hct (39.0-53.0) % Neutrophils # (1.3-7.7) k/uL Lymphocytes # (1.0-4.8) k/uL ABG pH 7.33 L (7.35-7.45) ABG pCO2 47 H 47 H (35-45) mmHg ABG pO2 124 H (83-108) mmHg ABG HCO3 26 H (21-25) mmol/L ABG Total CO2 26 H 28 H (19-24) mmol/L ABG O2 Saturation 98.3 H 98.8 H (94-97) % ABG Hematocrit 22 L (34.0-46.0) % ABG Ionized Calcium 3.9 L (4.5-5.3) mg/dL ABG Glucose 159 H (75-99) mg/dL ABG Lactic Acid 2.0 H (0.5-1.6) mmol/L Hemoglobin 7.1 L (13.0-17.5) gm/dL Sodium (137-145) mmol/L BUN (9-20) mg/dL POC Glucose (mg/dL) 136 H (75-99) mg/dL Calcium (8.4-10.2) mg/dL Arterial Blood Glucose 159 H (75-99) mg/dL Crossmatch Assessment and Plan Plan: Assessment: #1. Coronary artery disease status post off pump coronary artery bypass surgery with 4 vessel bypass including a FLORES to LAD and saphenous finger graft to PDA circumflex branch. She is postop day #0. #2. Post thoracotomy ventilator support. And expected outcome of surgery. The patient is currently intubated on mechanical ventilator post cardiac bypass surgery. #3. CHF with an impaired preop ejection fraction of 30-35%. Currently the patient is a adequate hemodynamics urine output and blood pressure. #4. History of Hypertension #5. Hypothyroid #6. Diabetes mellitus type 2 #7. chronic obstructive pulmonary disease, and bedside spirometry is poor with an FEV1 of less than 30% of predicted. #8. Nicotine dependence, patient carries over 50 years of smoking history of less then a pack a day Plan Continue vent support. Drop the FiO2 down to 40% and keep the rest of the vent settings are unchanged. The patient will be gradually weaned off the sedation and we'll check set at weaning parameters once the patient is fully awake and assess his readiness to wean. We'll give the patient has pulled his breathing trial accordingly and decide if he is a candidate for extubation. This large department on his ability to cough and passes point is breathing trial. This also dependent on his overall hemodynamics. He is currently hemodynamically stable. Blood gases was noted. Chest x-ray was noted. Moderate output from the chest tubes. We'll continue to follow make further recommendations based on his progress. Is a critically care evaluation that was done in 40 minutes and the case was also discussed with the cardiothoracic surgeon. Time with Patient: Greater than 30
[2018-12-13 13:33] LABS: INR 1.2 (<1.2); Partial Thromboplastin Time 27.6 sec (22.0-30.0)
[2018-12-13 13:35] LABS: Glucose,Whole Blood 118 mg/dL (75-99)
[2018-12-13 13:39] LABS: HGB 6.9 gm/dL (13.0-17.5)
[2018-12-13] MEDS: LACTATED RINGERS 1,000 ML IV SCH (13:56)
[2018-12-13] MEDS: CLEVIDIPINE BUTYRATE 25 MG in EMPTY BAG 1 BAG IV SCH ×2 (13:56→14:59)
[2018-12-13 14:10] LABS: Glucose,Whole Blood 100 mg/dL (75-99)
[2018-12-13] MEDS ORDERED: hydrALAZINE HCL 20 MG/ML 1 ML VIAL IVP PRN (14:55)
[2018-12-13] MEDS ORDERED: fentaNYL (PF) 50 MCG/ML 2 ML AMP IVP PRN (14:55)
[2018-12-13] MEDS ORDERED: BENZOCAINE SPRAY 1 CAN TOPICAL STA (15:00)
[2018-12-13 15:21] LABS: Glucose,Whole Blood 94 mg/dL (75-99)
[2018-12-13] MEDS: DEXMEDETOMIDINE/0.9% NACL(PMX) 400 MCG in EMPTY BAG 1 BAG IV SCH (16:00)
[2018-12-13] MEDS ORDERED: IPRATROPIUM-ALBUTEROL 3 ML NEB INHALATION SCH (16:00)
[2018-12-13 16:06] LABS: Basophils % (A) 0 %; Eosinophils % (A) 0 %; HCT 24.4 % (39.0-53.0); HGB 7.8 gm/dL (13.0-17.5); Lymphocytes # (A) 0.7 k/uL (1.0-4.8); Lymphocytes % (A) 4 %; MCH 29.9 pg (25.0-35.0); MCV 93.4 fL (80.0-100.0); Mean Platelet Volume 7.3; Monocytes # (A) 1.3 k/uL (0-1.0); Monocytes % (A) 7 %; Neutrophils # (A) 17.3 k/uL (1.3-7.7); Neutrophils % (A) 89 %; Platelet Count 344 k/uL (150-450); RBC 2.61 m/uL (4.30-5.90); RDW 13.1 % (11.5-15.5); WBC 19.6 k/uL (3.8-10.6)
[2018-12-13 16:11] LABS: Glucose,Whole Blood 135 mg/dL (75-99)
[2018-12-13 16:11] LABS: Glucose,Whole Blood 138 mg/dL (75-99)
[2018-12-13] MEDS: INSULIN REGULAR 100 UNIT in SODIUM CHLORIDE 0.9% 100 ML IV SCH (16:36)
[2018-12-13 17:15] LABS: Glucose,Whole Blood 147 mg/dL (75-99)
[2018-12-13] MEDS: ceFAZolin IN SWFI 2 GM/20 ML SYRINGE IVP SCH (17:25)
[2018-12-13 18:35] LABS: Glucose,Whole Blood 134 mg/dL (75-99)
[2018-12-13 18:37] LABS: ABG HCO3 27 mmol/L (21-25); ABG Oxygen Saturation 96.2 % (94-97); ABG PCO2 43 mmHg (35-45); ABG PH 7.41 (7.35-7.45); ABG PO2 75 mmHg (83-108); ABG TCO2 28 mmol/L (19-24)
[2018-12-13 20:09] LABS: Glucose,Whole Blood 101 mg/dL (75-99)
[2018-12-13 20:40] LABS: Basophils % (A) 0 %; Eosinophils % (A) 0 %; HCT 22.3 % (39.0-53.0); HGB 7.3 gm/dL (13.0-17.5); Lymphocytes # (A) 0.6 k/uL (1.0-4.8); Lymphocytes % (A) 6 %; MCH 30.4 pg (25.0-35.0); MCHC 32.7 g/dL (31.0-37.0); MCV 93.1 fL (80.0-100.0); Mean Platelet Volume 7.2; Monocytes # (A) 0.5 k/uL (0-1.0); Monocytes % (A) 5 %; Neutrophils # (A) 8.8 k/uL (1.3-7.7); Neutrophils % (A) 88 %; Platelet Count 308 k/uL (150-450); RBC 2.39 m/uL (4.30-5.90); RDW 13.2 % (11.5-15.5); WBC 9.9 k/uL (3.8-10.6)
[2018-12-13 20:51] LABS: Albumin 3.2 g/dL (3.5-5.0); Calcium 7.7 mg/dL (8.4-10.2); Magnesium 2.5 mg/dL (1.6-2.3); Phosphorus 4.5 mg/dL (2.5-4.5); Potassium 4.7 mmol/L (3.5-5.1); Total Bilirubin 0.5 mg/dL (0.2-1.3); Total Protein 5.2 g/dL (6.3-8.2)
[2018-12-13 21:10] LABS: Glucose,Whole Blood 117 mg/dL (75-99)
[2018-12-13] MEDS: MUPIROCIN 2% OINT 22 GM TUBE NASAL SCH (21:42)
[2018-12-13 22:09] LABS: Glucose,Whole Blood 163 mg/dL (75-99)
[2018-12-13 23:18] LABS: Glucose,Whole Blood 128 mg/dL (75-99)
[2018-12-14 00:11] LABS: Glucose,Whole Blood 107 mg/dL (75-99)
[2018-12-14] MEDS: ACETAMINOPHEN IV (For NPO) 1,000 MG in EMPTY BAG 1 BAG IVPB SCH ×3 (00:22→14:02)
[2018-12-14] MEDS: methylPREDNISolone SOD SUCCI 125 MG/2 ML VIAL IV SCH ×5 (00:22→17:49)
[2018-12-14] MEDS: HEPARIN SODIUM,PORCINE 5,000 UNIT/ML 1 ML VIAL SQ SCH ×3 (00:24→17:49)
[2018-12-14] MEDS: ceFAZolin IN SWFI 2 GM/20 ML SYRINGE IVP SCH ×3 (00:24→17:49)
[2018-12-14 01:28] LABS: Glucose,Whole Blood 84 mg/dL (75-99)
[2018-12-14] MEDS: ALBUMIN HUMAN 5% 250 ML in EMPTY BAG 1 BAG IVPB PRN ×3 (01:41→08:33)
--- NOTE | 2018-12-14 02:12 | PN ---
PROGRESS NOTE DATE OF SERVICE: 12/13/2018 This 68-year-old gentleman who was admitted with acute non ST elevation myocardial infarction, also had two vessel coronary artery disease. Patient underwent CAD, CABG, off pump CABG x4 with a sequential FLORES to diagonal and LAD and sequential vein graft to posterior descending artery by Dr. Horn. The patient mechanically intubated. Patient being closely monitored in ICU at this time. EXAM: Pulse is 74, blood pressure 125/58, respirations 16, temp 98.2, pulse ox 97% on BiPAP. HEENT is conjunctivae normal. Oral mucosa moist. Neck is no jugular venous distention. No carotid bruit. No lymph node enlargement. Cardiovascular: S1, S2 muffled. Respiratory: Breath sounds diminished in the bases. Bilateral scattered rhonchi and crackles. Abdomen is soft, nontender. Legs are no edema. No swelling. Central nervous system: No focal deficits. LAB STUDIES: WBC 10.9, hemoglobin 7.3, otherwise glucose 101 and AST 154 and ALT is 155. ASSESSMENT: 1. Coronary artery disease status post coronary artery bypass grafting x4. 2. History of recent acute non ST elevation myocardial infarction. 3. Acute hypoxic respiratory failure secondary to acute systolic congestive heart failure. 4. Chronic obstructive pulmonary disease exacerbation with the FEV1 less than 30%. 5. Acute renal failure, prerenal azotemia secondary to congestive heart failure. 6. Elevated AST/ALT. 7. Chronic kidney disease, diabetic nephropathy. 8. Diabetes mellitus type 2. 9. Hypertension. 10.Hyperlipidemia. 11.Hypothyroidism. 12.PTSD, bipolar disorder. 13.History of nicotine dependence. RECOMMENDATIONS AND DISCUSSION: Recommend to continue current medications, management and symptomatic treatment. I would recommend continue with insulin drip currently. Monitor blood sugars closely and I would also recommend monitor the labs including LFTs as well. We will follow the patient closely and DVT prophylaxis. Further recommendations to follow. MMODL / IJN: [id number] /
[2018-12-14 02:18] LABS: Glucose,Whole Blood 96 mg/dL (75-99)
[2018-12-14 03:01] LABS: Glucose,Whole Blood 73 mg/dL (75-99)
[2018-12-14] MEDS: DEXMEDETOMIDINE/0.9% NACL(PMX) 400 MCG in EMPTY BAG 1 BAG IV SCH (04:18)
[2018-12-14 04:22] LABS: Glucose,Whole Blood 58 mg/dL (75-99)
[2018-12-14 04:52] LABS: Glucose,Whole Blood 168 mg/dL (75-99)
[2018-12-14 05:07] LABS: Basophils % (A) 0 %; Eosinophils % (A) 0 %; HCT 24.1 % (39.0-53.0); HGB 7.7 gm/dL (13.0-17.5); Lymphocytes # (A) 0.3 k/uL (1.0-4.8); Lymphocytes % (A) 2 %; MCH 29.2 pg (25.0-35.0); MCV 91.1 fL (80.0-100.0); Mean Platelet Volume 6.6; Monocytes # (A) 0.3 k/uL (0-1.0); Monocytes % (A) 3 %; Neutrophils # (A) 12.3 k/uL (1.3-7.7); Neutrophils % (A) 94 %; Platelet Count 314 k/uL (150-450); RBC 2.65 m/uL (4.30-5.90)
[2018-12-14 05:22] LABS: Ionized Calcium 4.5 mg/dL (4.5-5.3)
[2018-12-14 05:32] LABS: INR 1.2 (<1.2); Prothrombin Time 12.3 sec (9.0-12.0)
[2018-12-14 05:35] LABS: Albumin 3.1 g/dL (3.5-5.0); Calcium 7.8 mg/dL (8.4-10.2); Magnesium 2.4 mg/dL (1.6-2.3); Potassium 5.1 mmol/L (3.5-5.1); Total Bilirubin 0.7 mg/dL (0.2-1.3); Total Protein 5.2 g/dL (6.3-8.2)
[2018-12-14 06:40] LABS: Glucose,Whole Blood 189 mg/dL (75-99)
[2018-12-14] MEDS: LEVOTHYROXINE 75 MCG TAB PO SCH (06:47)
[2018-12-14 07:25] LABS: Glucose,Whole Blood 179 mg/dL (75-99)
[2018-12-14 08:34] LABS: Glucose,Whole Blood 143 mg/dL (75-99)
--- NOTE | 2018-12-14 08:44 | P.PN ---
Subjective Progress Note Date: 12/14/18 Principal diagnosis: Acute coronary syndrome This is a pleasant 68-year-old gentleman who was admitted to the hospital with chest discomfort and ruled in for acute non-ST patient myocardial infarction. 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 Giving his anatomy, coronary artery bypass grafting was advised. The patient underwent CABG 4. He underwent FLORES to LAD and diagonal and SVG to PDA and PLV. On follow-up with him today, he seems to be slightly lethargic. The blood pressure has been marginally low. He has been maintaining normal sinus mechanism. The urine output is on the low side. The chest x-ray seems to be slightly worse. He continues to be on dual antiplatelet therapy along with statin as well as beta sergio. Objective - Vital Signs Vital signs: Vital Signs Temp 98.1 F 12/14/18 07:00 Pulse 75 12/14/18 07:00 Resp 16 12/14/18 07:00 BP 99/62 12/14/18 01:30 Pulse Ox 95 12/14/18 07:00 Intake & Output 12/13/18 12/14/18 12/14/18 18:59 06:59 18:59 Intake Total 218.762 8173.452 62.262 Output Total 1335 1195 27 Balance -504.668 203.452 35.262 Weight 94 kg 97.5 kg Intake: IV 307 1126 56 0.9NS Pressure Bag 54 33 3 ACETAMINOPHEN IV (For NPO 200 ) 1,000 mg In Empty Bag 1 bag @ 400 mls/hr IVPB Q6HR [facility] Rx#:[id number] Albumin Human 25% 50 ml 250 In Empty Bag 1 bag @ 100 mls/hr IVPB ONCE ONE Rx#: [id number] Cardiac Output 120 60 Lactated Ringers 100 550 50 Nitroglycerin-D5w Pmx 50 33 3 mg In Dextrose/Water 1 250ml.bag @ 5 MCG/MIN 1.5 mls/hr IV .Q24H [facility] Rx#: [id number] Intake, IV Titration 523.332 92.452 6.262 Amount ACETAMINOPHEN IV (For NPO 100 ) 1,000 mg In Empty Bag 1 bag @ 400 mls/hr IVPB Q6HR [facility] Rx#:[id number] Calcium Chloride 1,000 mg 100 In Sodium Chloride 0.9% 100 ml @ 100 mls/hr IV ONCE PRN Rx#:[id number] Clevidipine Butyrate 25 0.2 mg In Empty Bag 1 bag @ 1 MG/HR 2 mls/hr IV .Q24H [facility] Rx#:[id number] Dexmedetomidine/0.9% NaCl 27.73 71.675 (Pmx) 400 mcg In Empty Bag 1 bag @ Titrate IV . Q0M [facility] Rx#:[id number] Insulin Regular 100 unit 9.527 6.262 In Sodium Chloride 0.9% 100 ml @ Per Protocol IV .Q0M [facility] Rx#:[id number] Lactated Ringers 1,000 ml 250 @ 50 mls/hr IV .Q20H [facility] Rx#:[id number] Nitroglycerin-D5w Pmx 50 11.25 mg In Dextrose/Water 1 250ml.bag @ 5 MCG/MIN 1.5 mls/hr IV .Q24H [facility] Rx#: [id number] Propofol 1,000 mg In 45.402 Empty Bag 1 bag @ Titrate IV .Q0M [facility] Rx#: [id number] Oral 180 Output: Chest Tube Drainage 310 655 Left and Right Pleural 190 478 chest tube Mediastinal Chest tube 120 177 Urine 525 540 27 Estimated Blood Loss 500 Other: Voiding Method Indwelling Catheter Indwelling Catheter ABP, PAP, CO, CI - Last Documented Arterial Blood Pressure 119/52 Pulmonary Artery Pressure 56/15 Cardiac Output 5.5 Cardiac Index 2.5 - Constitutional General appearance: Present: mild distress - Respiratory Respiratory: bilateral: diminished - Cardiovascular Rhythm: regular - Labs CBC & Chem 7: 12/14/18 04:50 12/14/18 04:50 Labs: Abnormal Lab Results - Last 24 Hours (Table) 12/13/18 12/13/18 12/13/18 Range/Units 08:29 09:48 10:32 WBC (3.8-10.6) k/uL RBC (4.30-5.90) m/uL Hgb (13.0-17.5) gm/dL Hct (39.0-53.0) % Neutrophils # (1.3-7.7) k/uL Lymphocytes # (1.0-4.8) k/uL Monocytes # (0-1.0) k/uL PT (9.0-12.0) sec INR (<1.2) APTT (22.0-30.0) sec ABG pH 7.46 H (7.35-7.45) ABG pCO2 48 H (35-45) mmHg ABG pO2 266 H 167 H (83-108) mmHg ABG HCO3 28 H 29 H 28 H (21-25) mmol/L ABG Total CO2 30 H 30 H 29 H (19-24) mmol/L ABG O2 Saturation 100.0 H 97.9 H 99.8 H (94-97) % ABG Hematocrit 26 L 26 L 23 L (34.0-46.0) % ABG Ionized Calcium 4.2 L 4.3 L 4.1 L (4.5-5.3) mg/dL ABG Glucose 183 H 221 H 189 H (75-99) mg/dL ABG Lactic Acid 1.8 H (0.5-1.6) mmol/L Hemoglobin 8.3 L 8.5 L 7.5 L (13.0-17.5) gm/dL BUN (9-20) mg/dL Glucose (74-99) mg/dL POC Glucose (mg/dL) (75-99) mg/dL Calcium (8.4-10.2) mg/dL Ionized Calcium Rich (4.5-5.3) mg/dL Magnesium (1.6-2.3) mg/dL AST (17-59) U/L ALT (21-72) U/L Alkaline Phosphatase (38-126) U/L Total Protein (6.3-8.2) g/dL Albumin (3.5-5.0) g/dL Arterial Blood Glucose 183 H 221 H 189 H (75-99) mg/dL 12/13/18 12/13/18 12/13/18 Range/Units 11:22 12:33 12:33 WBC 13.4 H (3.8-10.6) k/uL RBC 2.29 L (4.30-5.90) m/uL Hgb 6.9 L* D (13.0-17.5) gm/dL Hct 21.5 L (39.0-53.0) % Neutrophils # 12.0 H (1.3-7.7) k/uL Lymphocytes # 0.6 L (1.0-4.8) k/uL Monocytes # (0-1.0) k/uL PT (9.0-12.0) sec INR (<1.2) APTT (22.0-30.0) sec ABG pH 7.33 L (7.35-7.45) ABG pCO2 47 H (35-45) mmHg ABG pO2 (83-108) mmHg ABG HCO3 (21-25) mmol/L ABG Total CO2 26 H (19-24) mmol/L ABG O2 Saturation 98.3 H (94-97) % ABG Hematocrit 22 L (34.0-46.0) % ABG Ionized Calcium 3.9 L (4.5-5.3) mg/dL ABG Glucose 159 H (75-99) mg/dL ABG Lactic Acid 2.0 H (0.5-1.6) mmol/L Hemoglobin 7.1 L (13.0-17.5) gm/dL BUN 46 H (9-20) mg/dL Glucose 119 H (74-99) mg/dL POC Glucose (mg/dL) (75-99) mg/dL Calcium 7.1 L (8.4-10.2) mg/dL Ionized Calcium Rich 4.2 L (4.5-5.3) mg/dL Magnesium 2.6 H (1.6-2.3) mg/dL AST 133 H (17-59) U/L ALT 108 H (21-72) U/L Alkaline Phosphatase 22 L (38-126) U/L Total Protein 5.3 L (6.3-8.2) g/dL Albumin 3.3 L (3.5-5.0) g/dL Arterial Blood Glucose 159 H (75-99) mg/dL 12/13/18 12/13/18 12/13/18 Range/Units 12:33 12:36 12:50 WBC (3.8-10.6) k/uL RBC (4.30-5.90) m/uL Hgb (13.0-17.5) gm/dL Hct (39.0-53.0) % Neutrophils # (1.3-7.7) k/uL Lymphocytes # (1.0-4.8) k/uL Monocytes # (0-1.0) k/uL PT (9.0-12.0) sec INR 1.2 H (<1.2) APTT (22.0-30.0) sec ABG pH (7.35-7.45) ABG pCO2 47 H (35-45) mmHg ABG pO2 124 H (83-108) mmHg ABG HCO3 26 H (21-25) mmol/L ABG Total CO2 28 H (19-24) mmol/L ABG O2 Saturation 98.8 H (94-97) % ABG Hematocrit (34.0-46.0) % ABG Ionized Calcium (4.5-5.3) mg/dL ABG Glucose (75-99) mg/dL ABG Lactic Acid (0.5-1.6) mmol/L Hemoglobin (13.0-17.5) gm/dL BUN (9-20) mg/dL Glucose (74-99) mg/dL POC Glucose (mg/dL) 136 H (75-99) mg/dL Calcium (8.4-10.2) mg/dL Ionized Calcium Rich (4.5-5.3) mg/dL Magnesium (1.6-2.3) mg/dL AST (17-59) U/L ALT (21-72) U/L Alkaline Phosphatase (38-126) U/L Total Protein (6.3-8.2) g/dL Albumin (3.5-5.0) g/dL Arterial Blood Glucose (75-99) mg/dL 12/13/18 12/13/18 12/13/18 Range/Units 13:16 14:07 15:38 WBC 19.6 H (3.8-10.6) k/uL RBC 2.61 L (4.30-5.90) m/uL Hgb 7.8 L (13.0-17.5) gm/dL Hct 24.4 L (39.0-53.0) % Neutrophils # 17.3 H (1.3-7.7) k/uL Lymphocytes # 0.7 L (1.0-4.8) k/uL Monocytes # 1.3 H (0-1.0) k/uL PT (9.0-12.0) sec INR (<1.2) APTT (22.0-30.0) sec ABG pH (7.35-7.45) ABG pCO2 (35-45) mmHg ABG pO2 (83-108) mmHg ABG HCO3 (21-25) mmol/L ABG Total CO2 (19-24) mmol/L ABG O2 Saturation (94-97) % ABG Hematocrit (34.0-46.0) % ABG Ionized Calcium (4.5-5.3) mg/dL ABG Glucose (75-99) mg/dL ABG Lactic Acid (0.5-1.6) mmol/L Hemoglobin (13.0-17.5) gm/dL BUN (9-20) mg/dL Glucose (74-99) mg/dL POC Glucose (mg/dL) 118 H 100 H (75-99) mg/dL Calcium (8.4-10.2) mg/dL Ionized Calcium Rich (4.5-5.3) mg/dL Magnesium (1.6-2.3) mg/dL AST (17-59) U/L ALT (21-72) U/L Alkaline Phosphatase (38-126) U/L Total Protein (6.3-8.2) g/dL Albumin (3.5-5.0) g/dL Arterial Blood Glucose (75-99) mg/dL 12/13/18 12/13/18 12/13/18 Range/Units 15:54 16:09 17:12 WBC (3.8-10.6) k/uL RBC (4.30-5.90) m/uL Hgb (13.0-17.5) gm/dL Hct (39.0-53.0) % Neutrophils # (1.3-7.7) k/uL Lymphocytes # (1.0-4.8) k/uL Monocytes # (0-1.0) k/uL PT (9.0-12.0) sec INR (<1.2) APTT (22.0-30.0) sec ABG pH (7.35-7.45) ABG pCO2 (35-45) mmHg ABG pO2 (83-108) mmHg ABG HCO3 (21-25) mmol/L ABG Total CO2 (19-24) mmol/L ABG O2 Saturation (94-97) % ABG Hematocrit (34.0-46.0) % ABG Ionized Calcium (4.5-5.3) mg/dL ABG Glucose (75-99) mg/dL ABG Lactic Acid (0.5-1.6) mmol/L Hemoglobin (13.0-17.5) gm/dL BUN (9-20) mg/dL Glucose (74-99) mg/dL POC Glucose (mg/dL) 135 H 138 H 147 H (75-99) mg/dL Calcium (8.4-10.2) mg/dL Ionized Calcium Rich (4.5-5.3) mg/dL Magnesium (1.6-2.3) mg/dL AST (17-59) U/L ALT (21-72) U/L Alkaline Phosphatase (38-126) U/L Total Protein (6.3-8.2) g/dL Albumin (3.5-5.0) g/dL Arterial Blood Glucose (75-99) mg/dL 12/13/18 12/13/18 12/13/18 Range/Units 18:31 18:34 20:06 WBC (3.8-10.6) k/uL RBC (4.30-5.90) m/uL Hgb (13.0-17.5) gm/dL Hct (39.0-53.0) % Neutrophils # (1.3-7.7) k/uL Lymphocytes # (1.0-4.8) k/uL Monocytes # (0-1.0) k/uL PT (9.0-12.0) sec INR (<1.2) APTT (22.0-30.0) sec ABG pH (7.35-7.45) ABG pCO2 (35-45) mmHg ABG pO2 75 L (83-108) mmHg ABG HCO3 27 H (21-25) mmol/L ABG Total CO2 28 H (19-24) mmol/L ABG O2 Saturation (94-97) % ABG Hematocrit (34.0-46.0) % ABG Ionized Calcium (4.5-5.3) mg/dL ABG Glucose (75-99) mg/dL ABG Lactic Acid (0.5-1.6) mmol/L Hemoglobin (13.0-17.5) gm/dL BUN (9-20) mg/dL Glucose (74-99) mg/dL POC Glucose (mg/dL) 134 H 101 H (75-99) mg/dL Calcium (8.4-10.2) mg/dL Ionized Calcium Rich (4.5-5.3) mg/dL Magnesium (1.6-2.3) mg/dL AST (17-59) U/L ALT (21-72) U/L Alkaline Phosphatase (38-126) U/L Total Protein (6.3-8.2) g/dL Albumin (3.5-5.0) g/dL Arterial Blood Glucose (75-99) mg/dL 12/13/18 12/13/18 12/13/18 Range/Units 20:10 20:10 20:10 WBC (3.8-10.6) k/uL RBC 2.39 L (4.30-5.90) m/uL Hgb 7.3 L (13.0-17.5) gm/dL Hct 22.3 L (39.0-53.0) % Neutrophils # 8.8 H (1.3-7.7) k/uL Lymphocytes # 0.6 L (1.0-4.8) k/uL Monocytes # (0-1.0) k/uL PT (9.0-12.0) sec INR (<1.2) APTT 30.2 H (22.0-30.0) sec ABG pH (7.35-7.45) ABG pCO2 (35-45) mmHg ABG pO2 (83-108) mmHg ABG HCO3 (21-25) mmol/L ABG Total CO2 (19-24) mmol/L ABG O2 Saturation (94-97) % ABG Hematocrit (34.0-46.0) % ABG Ionized Calcium (4.5-5.3) mg/dL ABG Glucose (75-99) mg/dL ABG Lactic Acid (0.5-1.6) mmol/L Hemoglobin (13.0-17.5) gm/dL BUN 43 H (9-20) mg/dL Glucose (74-99) mg/dL POC Glucose (mg/dL) (75-99) mg/dL Calcium 7.7 L (8.4-10.2) mg/dL Ionized Calcium Rich (4.5-5.3) mg/dL Magnesium 2.5 H (1.6-2.3) mg/dL AST 154 H (17-59) U/L ALT 155 H (21-72) U/L Alkaline Phosphatase 28 L (38-126) U/L Total Protein 5.2 L (6.3-8.2) g/dL Albumin 3.2 L (3.5-5.0) g/dL Arterial Blood Glucose (75-99) mg/dL 12/13/18 12/13/18 12/13/18 Range/Units 21:07 22:05 23:16 WBC (3.8-10.6) k/uL RBC (4.30-5.90) m/uL Hgb (13.0-17.5) gm/dL Hct (39.0-53.0) % Neutrophils # (1.3-7.7) k/uL Lymphocytes # (1.0-4.8) k/uL Monocytes # (0-1.0) k/uL PT (9.0-12.0) sec INR (<1.2) APTT (22.0-30.0) sec ABG pH (7.35-7.45) ABG pCO2 (35-45) mmHg ABG pO2 (83-108) mmHg ABG HCO3 (21-25) mmol/L ABG Total CO2 (19-24) mmol/L ABG O2 Saturation (94-97) % ABG Hematocrit (34.0-46.0) % ABG Ionized Calcium (4.5-5.3) mg/dL ABG Glucose (75-99) mg/dL ABG Lactic Acid (0.5-1.6) mmol/L Hemoglobin (13.0-17.5) gm/dL BUN (9-20) mg/dL Glucose (74-99) mg/dL POC Glucose (mg/dL) 117 H 163 H 128 H (75-99) mg/dL Calcium (8.4-10.2) mg/dL Ionized Calcium Rich (4.5-5.3) mg/dL Magnesium (1.6-2.3) mg/dL AST (17-59) U/L ALT (21-72) U/L Alkaline Phosphatase (38-126) U/L Total Protein (6.3-8.2) g/dL Albumin (3.5-5.0) g/dL Arterial Blood Glucose (75-99) mg/dL 12/14/18 12/14/18 12/14/18 Range/Units 00:04 03:00 04:09 WBC (3.8-10.6) k/uL RBC (4.30-5.90) m/uL Hgb (13.0-17.5) gm/dL Hct (39.0-53.0) % Neutrophils # (1.3-7.7) k/uL Lymphocytes # (1.0-4.8) k/uL Monocytes # (0-1.0) k/uL PT (9.0-12.0) sec INR (<1.2) APTT (22.0-30.0) sec ABG pH (7.35-7.45) ABG pCO2 (35-45) mmHg ABG pO2 (83-108) mmHg ABG HCO3 (21-25) mmol/L ABG Total CO2 (19-24) mmol/L ABG O2 Saturation (94-97) % ABG Hematocrit (34.0-46.0) % ABG Ionized Calcium (4.5-5.3) mg/dL ABG Glucose (75-99) mg/dL ABG Lactic Acid (0.5-1.6) mmol/L Hemoglobin (13.0-17.5) gm/dL BUN (9-20) mg/dL Glucose (74-99) mg/dL POC Glucose (mg/dL) 107 H 73 L 58 L (75-99) mg/dL Calcium (8.4-10.2) mg/dL Ionized Calcium Rich (4.5-5.3) mg/dL Magnesium (1.6-2.3) mg/dL AST (17-59) U/L ALT (21-72) U/L Alkaline Phosphatase (38-126) U/L Total Protein (6.3-8.2) g/dL Albumin (3.5-5.0) g/dL Arterial Blood Glucose (75-99) mg/dL 12/14/18 12/14/18 12/14/18 Range/Units 04:50 04:50 04:50 WBC 13.0 H (3.8-10.6) k/uL RBC 2.65 L (4.30-5.90) m/uL Hgb 7.7 L (13.0-17.5) gm/dL Hct 24.1 L (39.0-53.0) % Neutrophils # 12.3 H (1.3-7.7) k/uL Lymphocytes # 0.3 L (1.0-4.8) k/uL Monocytes # (0-1.0) k/uL PT 12.3 H (9.0-12.0) sec INR 1.2 H (<1.2) APTT 32.0 H (22.0-30.0) sec ABG pH (7.35-7.45) ABG pCO2 (35-45) mmHg ABG pO2 (83-108) mmHg ABG HCO3 (21-25) mmol/L ABG Total CO2 (19-24) mmol/L ABG O2 Saturation (94-97) % ABG Hematocrit (34.0-46.0) % ABG Ionized Calcium (4.5-5.3) mg/dL ABG Glucose (75-99) mg/dL ABG Lactic Acid (0.5-1.6) mmol/L Hemoglobin (13.0-17.5) gm/dL BUN 47 H (9-20) mg/dL Glucose 152 H (74-99) mg/dL POC Glucose (mg/dL) (75-99) mg/dL Calcium 7.8 L (8.4-10.2) mg/dL Ionized Calcium Rich (4.5-5.3) mg/dL Magnesium 2.4 H (1.6-2.3) mg/dL AST 133 H (17-59) U/L ALT 128 H (21-72) U/L Alkaline Phosphatase 32 L (38-126) U/L Total Protein 5.2 L (6.3-8.2) g/dL Albumin 3.1 L (3.5-5.0) g/dL Arterial Blood Glucose (75-99) mg/dL 12/14/18 12/14/18 12/14/18 Range/Units 04:50 06:17 07:12 WBC (3.8-10.6) k/uL RBC (4.30-5.90) m/uL Hgb (13.0-17.5) gm/dL Hct (39.0-53.0) % Neutrophils # (1.3-7.7) k/uL Lymphocytes # (1.0-4.8) k/uL Monocytes # (0-1.0) k/uL PT (9.0-12.0) sec INR (<1.2) APTT (22.0-30.0) sec ABG pH (7.35-7.45) ABG pCO2 (35-45) mmHg ABG pO2 (83-108) mmHg ABG HCO3 (21-25) mmol/L ABG Total CO2 (19-24) mmol/L ABG O2 Saturation (94-97) % ABG Hematocrit (34.0-46.0) % ABG Ionized Calcium (4.5-5.3) mg/dL ABG Glucose (75-99) mg/dL ABG Lactic Acid (0.5-1.6) mmol/L Hemoglobin (13.0-17.5) gm/dL BUN (9-20) mg/dL Glucose (74-99) mg/dL POC Glucose (mg/dL) 168 H 189 H 179 H (75-99) mg/dL Calcium (8.4-10.2) mg/dL Ionized Calcium Rich (4.5-5.3) mg/dL Magnesium (1.6-2.3) mg/dL AST (17-59) U/L ALT (21-72) U/L Alkaline Phosphatase (38-126) U/L Total Protein (6.3-8.2) g/dL Albumin (3.5-5.0) g/dL Arterial Blood Glucose (75-99) mg/dL 12/14/18 Range/Units 08:29 WBC (3.8-10.6) k/uL RBC (4.30-5.90) m/uL Hgb (13.0-17.5) gm/dL Hct (39.0-53.0) % Neutrophils # (1.3-7.7) k/uL Lymphocytes # (1.0-4.8) k/uL Monocytes # (0-1.0) k/uL PT (9.0-12.0) sec INR (<1.2) APTT (22.0-30.0) sec ABG pH (7.35-7.45) ABG pCO2 (35-45) mmHg ABG pO2 (83-108) mmHg ABG HCO3 (21-25) mmol/L ABG Total CO2 (19-24) mmol/L ABG O2 Saturation (94-97) % ABG Hematocrit (34.0-46.0) % ABG Ionized Calcium (4.5-5.3) mg/dL ABG Glucose (75-99) mg/dL ABG Lactic Acid (0.5-1.6) mmol/L Hemoglobin (13.0-17.5) gm/dL BUN (9-20) mg/dL Glucose (74-99) mg/dL POC Glucose (mg/dL) 143 H (75-99) mg/dL Calcium (8.4-10.2) mg/dL Ionized Calcium Rich (4.5-5.3) mg/dL Magnesium (1.6-2.3) mg/dL AST (17-59) U/L ALT (21-72) U/L Alkaline Phosphatase (38-126) U/L Total Protein (6.3-8.2) g/dL Albumin (3.5-5.0) g/dL Arterial Blood Glucose (75-99) mg/dL Assessment and Plan Assessment: Assessment #1 acute coronary event #2 status post CABG as described above #3 multiple comorbid conditions Plan #1 the patient is on dual antiplatelet therapy will continue that #2 the hemoglobin as well as a creatinine seems to be stable #3 he is going to receive albumin later on today #4 possible diuresing as well #5 follow-up with the patient.
[2018-12-14] MEDS ORDERED: PANTOPRAZOLE 40 MG/10 ML VIAL IVP SCH (09:00)
[2018-12-14 09:09] LABS: Glucose,Whole Blood 130 mg/dL (75-99)
[2018-12-14 09:33] LABS: HCT 23.7 % (39.0-53.0); HGB 7.6 gm/dL (13.0-17.5); MCH 29.7 pg (25.0-35.0); MCHC 31.9 g/dL (31.0-37.0); Mean Platelet Volume 6.8; Platelet Count 313 k/uL (150-450); RBC 2.55 m/uL (4.30-5.90); RDW 12.8 % (11.5-15.5); WBC 14.5 k/uL (3.8-10.6)
[2018-12-14 10:11] LABS: Glucose,Whole Blood 168 mg/dL (75-99)
[2018-12-14] MEDS: CLOPIDOGREL 75 MG TAB PO SCH (10:36)
[2018-12-14] MEDS: ATORVASTATIN 40 MG TAB PO SCH (10:36)
[2018-12-14] MEDS: ASPIRIN 325 MG TAB PO SCH (10:36)
[2018-12-14] MEDS: MUPIROCIN 2% OINT 22 GM TUBE NASAL SCH ×2 (10:37→20:14)
[2018-12-14] MEDS: LACTATED RINGERS 1,000 ML IV SCH (10:39)
[2018-12-14] MEDS: METOPROLOL TARTRATE 12.5 MG TAB PO SCH ×2 (11:06→20:13)
[2018-12-14 11:21] LABS: Glucose,Whole Blood 166 mg/dL (75-99)
[2018-12-14] MEDS ORDERED: HYDROcodone/APAP 5-325MG 1 EACH TAB PO PRN ×2 (11:57)
[2018-12-14] MEDS ORDERED: MAGNESIUM HYDROXIDE 2,400 MG/10 ML CUP PO PRN (11:58)
[2018-12-14] MEDS ORDERED: BISACODYL 10 MG SUPP RECTAL PRN (11:58)
--- NOTE | 2018-12-14 12:17 | P.PN ---
Subjective Progress Note Date: 12/14/18 On 12/14/2018, and seeing this patient for a follow-up. The patient is postop day #1. The patient was weaned off the mechanical ventilated and the patient was extubated to BiPAP at a pressure of over 6 cm of water and FiO2 of 40%. Overnight the patient was kept on a BiPAP earlier this morning the patient was taken off the BiPAP. He is currently on oxygen at 4 L per minute nasal cannula and his saturations around 96%. He has a congested cough. He is using incentive spirometer. Sternum stable clean and intact. Chest tubes are in place. The output from the left and the right pleural chest tube has been 668 mL since arrival from the operating room and output from the mediastinal chest tube was sewn 97 mL since arrival from the operating room. The issues pulmonary artery pressures 45 or 15. CVP is at 7. Cardiac index is at 2.4. Chest x-ray from today shows increased pulmonary vessel markings bilaterally right more than left. Chest tubes are all in place. There is no evidence of any pneumothorax. The patient is currently on no pressors. The patient on insulin drip for blood sugar control. The postop hemoglobin is at 7.6. He is awake and alert and following commands and answering questions appropriately. No altered mentation. Renal function is stable at creatinine of 1.1. Objective - Vital Signs Vital signs: Vital Signs Temp 98.6 F 12/14/18 08:00 Pulse 76 12/14/18 10:00 Resp 18 12/14/18 10:00 BP 112/55 12/14/18 10:00 Pulse Ox 96 12/14/18 10:00 Intake & Output 12/13/18 12/14/18 12/14/18 18:59 06:59 18:59 Intake Total 870.819 1219.452 173.715 Output Total 1335 1195 27 Balance -504.668 203.452 146.715 Weight 94 kg 97.5 kg Intake: IV 307 1126 56 0.9NS Pressure Bag 54 33 3 ACETAMINOPHEN IV (For NPO 200 ) 1,000 mg In Empty Bag 1 bag @ 400 mls/hr IVPB Q6HR [facility] Rx#:[id number] Albumin Human 25% 50 ml 250 In Empty Bag 1 bag @ 100 mls/hr IVPB ONCE ONE Rx#: [id number] Cardiac Output 120 60 Lactated Ringers 100 550 50 Nitroglycerin-D5w Pmx 50 33 3 mg In Dextrose/Water 1 250ml.bag @ 5 MCG/MIN 1.5 mls/hr IV .Q24H [facility] Rx#: [id number] Intake, IV Titration 523.332 92.452 117.715 Amount ACETAMINOPHEN IV (For NPO 100 ) 1,000 mg In Empty Bag 1 bag @ 400 mls/hr IVPB Q6HR [facility] Rx#:[id number] Calcium Chloride 1,000 mg 100 In Sodium Chloride 0.9% 100 ml @ 100 mls/hr IV ONCE PRN Rx#:[id number] Clevidipine Butyrate 25 0.2 49.8 mg In Empty Bag 1 bag @ 1 MG/HR 2 mls/hr IV .Q24H [facility] Rx#:[id number] Dexmedetomidine/0.9% NaCl 27.73 71.675 25.303 (Pmx) 400 mcg In Empty Bag 1 bag @ Titrate IV . Q0M [facility] Rx#:[id number] Insulin Regular 100 unit 9.527 6.845 In Sodium Chloride 0.9% 100 ml @ Per Protocol IV .Q0M [facility] Rx#:[id number] Lactated Ringers 1,000 ml 250 @ 50 mls/hr IV .Q20H [facility] Rx#:[id number] Nitroglycerin-D5w Pmx 50 11.25 35.767 mg In Dextrose/Water 1 250ml.bag @ 5 MCG/MIN 1.5 mls/hr IV .Q24H [facility] Rx#: [id number] Propofol 1,000 mg In 45.402 Empty Bag 1 bag @ Titrate IV .Q0M [facility] Rx#: [id number] Oral 180 Output: Chest Tube Drainage 310 655 Left and Right Pleural 190 478 chest tube Mediastinal Chest tube 120 177 Urine 525 540 27 Estimated Blood Loss 500 Other: Voiding Method Indwelling Catheter Indwelling Catheter ABP, PAP, CO, CI - Last Documented Arterial Blood Pressure 127/42 Pulmonary Artery Pressure 45/15 Cardiac Output 7.6 Cardiac Index 3.5 - Exam Gen. appearance, the patient is extubated on 4 L of oxygen by nasal cannula. Sitting up on a recliner. 9 acute distress. Answering questions appropriately. Head exam was generally normal. There was no scleral icterus or corneal arcus. Mucous membranes were moist. Neck was supple and without jugular venous distension, thyromegaly, or carotid bruits. Carotids were easily palpable bilaterally. There was no adenopathy. The patient has a right IJ Liberty-Colin catheter in the cordis is in place. Lungs sounds are diminished bilaterally and scattered rhonchi. Otherwise no major wheezing. The sternum is stable clean and intact and the patient has [address] Cardiac exam revealed the PMI to be normally situated and sized. The rhythm was regular and no extrasystoles were noted during several minutes of auscultation. The first and second heart sounds were normal and physiologic splitting of the second heart sound was noted. There were no murmurs, rubs, clicks, or gallops. The cardiac output is 7.6 with an index of 3.5. Abdominal exam revealed normal bowel sounds. The abdomen was soft, non-tender, and without masses, organomegaly, or appreciable enlargement of the abdominal aorta. Examination of the extremities revealed easily palpable radial, femoral and pedal pulses. There was no cyanosis, clubbing or edema. Examination of the skin revealed no evidence of significant rashes, suspicious appearing nevi or other concerning lesions. Neurologically alert and awake 3 and there is no focal neurological deficits. - Labs CBC & Chem 7: 12/14/18 09:00 12/14/18 04:50 Labs: Abnormal Lab Results - Last 24 Hours (Table) 12/12/18 12/13/18 12/13/18 Range/Units 10:55 12:33 12:33 WBC 13.4 H (3.8-10.6) k/uL RBC 2.29 L (4.30-5.90) m/uL Hgb 6.9 L* D (13.0-17.5) gm/dL Hct 21.5 L (39.0-53.0) % Neutrophils # 12.0 H (1.3-7.7) k/uL Lymphocytes # 0.6 L (1.0-4.8) k/uL Monocytes # (0-1.0) k/uL PT (9.0-12.0) sec INR (<1.2) APTT (22.0-30.0) sec ABG pCO2 (35-45) mmHg ABG pO2 (83-108) mmHg ABG HCO3 (21-25) mmol/L ABG Total CO2 (19-24) mmol/L ABG O2 Saturation (94-97) % BUN 46 H (9-20) mg/dL Glucose 119 H (74-99) mg/dL POC Glucose (mg/dL) (75-99) mg/dL Calcium 7.1 L (8.4-10.2) mg/dL Ionized Calcium Rich 4.2 L (4.5-5.3) mg/dL Magnesium 2.6 H (1.6-2.3) mg/dL AST 133 H (17-59) U/L ALT 108 H (21-72) U/L Alkaline Phosphatase 22 L (38-126) U/L Total Protein 5.3 L (6.3-8.2) g/dL Albumin 3.3 L (3.5-5.0) g/dL Crossmatch See Detail 12/13/18 12/13/18 12/13/18 Range/Units 12:33 12:36 12:50 WBC (3.8-10.6) k/uL RBC (4.30-5.90) m/uL Hgb (13.0-17.5) gm/dL Hct (39.0-53.0) % Neutrophils # (1.3-7.7) k/uL Lymphocytes # (1.0-4.8) k/uL Monocytes # (0-1.0) k/uL PT (9.0-12.0) sec INR 1.2 H (<1.2) APTT (22.0-30.0) sec ABG pCO2 47 H (35-45) mmHg ABG pO2 124 H (83-108) mmHg ABG HCO3 26 H (21-25) mmol/L ABG Total CO2 28 H (19-24) mmol/L ABG O2 Saturation 98.8 H (94-97) % BUN (9-20) mg/dL Glucose (74-99) mg/dL POC Glucose (mg/dL) 136 H (75-99) mg/dL Calcium (8.4-10.2) mg/dL Ionized Calcium Rich (4.5-5.3) mg/dL Magnesium (1.6-2.3) mg/dL AST (17-59) U/L ALT (21-72) U/L Alkaline Phosphatase (38-126) U/L Total Protein (6.3-8.2) g/dL Albumin (3.5-5.0) g/dL Crossmatch 12/13/18 12/13/18 12/13/18 Range/Units 13:16 14:07 15:38 WBC 19.6 H (3.8-10.6) k/uL RBC 2.61 L (4.30-5.90) m/uL Hgb 7.8 L (13.0-17.5) gm/dL Hct 24.4 L (39.0-53.0) % Neutrophils # 17.3 H (1.3-7.7) k/uL Lymphocytes # 0.7 L (1.0-4.8) k/uL Monocytes # 1.3 H (0-1.0) k/uL PT (9.0-12.0) sec INR (<1.2) APTT (22.0-30.0) sec ABG pCO2 (35-45) mmHg ABG pO2 (83-108) mmHg ABG HCO3 (21-25) mmol/L ABG Total CO2 (19-24) mmol/L ABG O2 Saturation (94-97) % BUN (9-20) mg/dL Glucose (74-99) mg/dL POC Glucose (mg/dL) 118 H 100 H (75-99) mg/dL Calcium (8.4-10.2) mg/dL Ionized Calcium Rich (4.5-5.3) mg/dL Magnesium (1.6-2.3) mg/dL AST (17-59) U/L ALT (21-72) U/L Alkaline Phosphatase (38-126) U/L Total Protein (6.3-8.2) g/dL Albumin (3.5-5.0) g/dL Crossmatch 12/13/18 12/13/18 12/13/18 Range/Units 15:54 16:09 17:12 WBC (3.8-10.6) k/uL RBC (4.30-5.90) m/uL Hgb (13.0-17.5) gm/dL Hct (39.0-53.0) % Neutrophils # (1.3-7.7) k/uL Lymphocytes # (1.0-4.8) k/uL Monocytes # (0-1.0) k/uL PT (9.0-12.0) sec INR (<1.2) APTT (22.0-30.0) sec ABG pCO2 (35-45) mmHg ABG pO2 (83-108) mmHg ABG HCO3 (21-25) mmol/L ABG Total CO2 (19-24) mmol/L ABG O2 Saturation (94-97) % BUN (9-20) mg/dL Glucose (74-99) mg/dL POC Glucose (mg/dL) 135 H 138 H 147 H (75-99) mg/dL Calcium (8.4-10.2) mg/dL Ionized Calcium Rich (4.5-5.3) mg/dL Magnesium (1.6-2.3) mg/dL AST (17-59) U/L ALT (21-72) U/L Alkaline Phosphatase (38-126) U/L Total Protein (6.3-8.2) g/dL Albumin (3.5-5.0) g/dL Crossmatch 12/13/18 12/13/18 12/13/18 Range/Units 18:31 18:34 20:06 WBC (3.8-10.6) k/uL RBC (4.30-5.90) m/uL Hgb (13.0-17.5) gm/dL Hct (39.0-53.0) % Neutrophils # (1.3-7.7) k/uL Lymphocytes # (1.0-4.8) k/uL Monocytes # (0-1.0) k/uL PT (9.0-12.0) sec INR (<1.2) APTT (22.0-30.0) sec ABG pCO2 (35-45) mmHg ABG pO2 75 L (83-108) mmHg ABG HCO3 27 H (21-25) mmol/L ABG Total CO2 28 H (19-24) mmol/L ABG O2 Saturation (94-97) % BUN (9-20) mg/dL Glucose (74-99) mg/dL POC Glucose (mg/dL) 134 H 101 H (75-99) mg/dL Calcium (8.4-10.2) mg/dL Ionized Calcium Rich (4.5-5.3) mg/dL Magnesium (1.6-2.3) mg/dL AST (17-59) U/L ALT (21-72) U/L Alkaline Phosphatase (38-126) U/L Total Protein (6.3-8.2) g/dL Albumin (3.5-5.0) g/dL Crossmatch 12/13/18 12/13/18 12/13/18 Range/Units 20:10 20:10 20:10 WBC (3.8-10.6) k/uL RBC 2.39 L (4.30-5.90) m/uL Hgb 7.3 L (13.0-17.5) gm/dL Hct 22.3 L (39.0-53.0) % Neutrophils # 8.8 H (1.3-7.7) k/uL Lymphocytes # 0.6 L (1.0-4.8) k/uL Monocytes # (0-1.0) k/uL PT (9.0-12.0) sec INR (<1.2) APTT 30.2 H (22.0-30.0) sec ABG pCO2 (35-45) mmHg ABG pO2 (83-108) mmHg ABG HCO3 (21-25) mmol/L ABG Total CO2 (19-24) mmol/L ABG O2 Saturation (94-97) % BUN 43 H (9-20) mg/dL Glucose (74-99) mg/dL POC Glucose (mg/dL) (75-99) mg/dL Calcium 7.7 L (8.4-10.2) mg/dL Ionized Calcium Rich (4.5-5.3) mg/dL Magnesium 2.5 H (1.6-2.3) mg/dL AST 154 H (17-59) U/L ALT 155 H (21-72) U/L Alkaline Phosphatase 28 L (38-126) U/L Total Protein 5.2 L (6.3-8.2) g/dL Albumin 3.2 L (3.5-5.0) g/dL Crossmatch 12/13/18 12/13/18 12/13/18 Range/Units 21:07 22:05 23:16 WBC (3.8-10.6) k/uL RBC (4.30-5.90) m/uL Hgb (13.0-17.5) gm/dL Hct (39.0-53.0) % Neutrophils # (1.3-7.7) k/uL Lymphocytes # (1.0-4.8) k/uL Monocytes # (0-1.0) k/uL PT (9.0-12.0) sec INR (<1.2) APTT (22.0-30.0) sec ABG pCO2 (35-45) mmHg ABG pO2 (83-108) mmHg ABG HCO3 (21-25) mmol/L ABG Total CO2 (19-24) mmol/L ABG O2 Saturation (94-97) % BUN (9-20) mg/dL Glucose (74-99) mg/dL POC Glucose (mg/dL) 117 H 163 H 128 H (75-99) mg/dL Calcium (8.4-10.2) mg/dL Ionized Calcium Rich (4.5-5.3) mg/dL Magnesium (1.6-2.3) mg/dL AST (17-59) U/L ALT (21-72) U/L Alkaline Phosphatase (38-126) U/L Total Protein (6.3-8.2) g/dL Albumin (3.5-5.0) g/dL Crossmatch 12/14/18 12/14/18 12/14/18 Range/Units 00:04 03:00 04:09 WBC (3.8-10.6) k/uL RBC (4.30-5.90) m/uL Hgb (13.0-17.5) gm/dL Hct (39.0-53.0) % Neutrophils # (1.3-7.7) k/uL Lymphocytes # (1.0-4.8) k/uL Monocytes # (0-1.0) k/uL PT (9.0-12.0) sec INR (<1.2) APTT (22.0-30.0) sec ABG pCO2 (35-45) mmHg ABG pO2 (83-108) mmHg ABG HCO3 (21-25) mmol/L ABG Total CO2 (19-24) mmol/L ABG O2 Saturation (94-97) % BUN (9-20) mg/dL Glucose (74-99) mg/dL POC Glucose (mg/dL) 107 H 73 L 58 L (75-99) mg/dL Calcium (8.4-10.2) mg/dL Ionized Calcium Rich (4.5-5.3) mg/dL Magnesium (1.6-2.3) mg/dL AST (17-59) U/L ALT (21-72) U/L Alkaline Phosphatase (38-126) U/L Total Protein (6.3-8.2) g/dL Albumin (3.5-5.0) g/dL Crossmatch 12/14/18 12/14/18 12/14/18 Range/Units 04:50 04:50 04:50 WBC 13.0 H (3.8-10.6) k/uL RBC 2.65 L (4.30-5.90) m/uL Hgb 7.7 L (13.0-17.5) gm/dL Hct 24.1 L (39.0-53.0) % Neutrophils # 12.3 H (1.3-7.7) k/uL Lymphocytes # 0.3 L (1.0-4.8) k/uL Monocytes # (0-1.0) k/uL PT 12.3 H (9.0-12.0) sec INR 1.2 H (<1.2) APTT 32.0 H (22.0-30.0) sec ABG pCO2 (35-45) mmHg ABG pO2 (83-108) mmHg ABG HCO3 (21-25) mmol/L ABG Total CO2 (19-24) mmol/L ABG O2 Saturation (94-97) % BUN 47 H (9-20) mg/dL Glucose 152 H (74-99) mg/dL POC Glucose (mg/dL) (75-99) mg/dL Calcium 7.8 L (8.4-10.2) mg/dL Ionized Calcium Rich (4.5-5.3) mg/dL Magnesium 2.4 H (1.6-2.3) mg/dL AST 133 H (17-59) U/L ALT 128 H (21-72) U/L Alkaline Phosphatase 32 L (38-126) U/L Total Protein 5.2 L (6.3-8.2) g/dL Albumin 3.1 L (3.5-5.0) g/dL Crossmatch 12/14/18 12/14/18 12/14/18 Range/Units 04:50 06:17 07:12 WBC (3.8-10.6) k/uL RBC (4.30-5.90) m/uL Hgb (13.0-17.5) gm/dL Hct (39.0-53.0) % Neutrophils # (1.3-7.7) k/uL Lymphocytes # (1.0-4.8) k/uL Monocytes # (0-1.0) k/uL PT (9.0-12.0) sec INR (<1.2) APTT (22.0-30.0) sec ABG pCO2 (35-45) mmHg ABG pO2 (83-108) mmHg ABG HCO3 (21-25) mmol/L ABG Total CO2 (19-24) mmol/L ABG O2 Saturation (94-97) % BUN (9-20) mg/dL Glucose (74-99) mg/dL POC Glucose (mg/dL) 168 H 189 H 179 H (75-99) mg/dL Calcium (8.4-10.2) mg/dL Ionized Calcium Rich (4.5-5.3) mg/dL Magnesium (1.6-2.3) mg/dL AST (17-59) U/L ALT (21-72) U/L Alkaline Phosphatase (38-126) U/L Total Protein (6.3-8.2) g/dL Albumin (3.5-5.0) g/dL Crossmatch 12/14/18 12/14/18 12/14/18 Range/Units 08:29 09:00 09:04 WBC 14.5 H (3.8-10.6) k/uL RBC 2.55 L (4.30-5.90) m/uL Hgb 7.6 L (13.0-17.5) gm/dL Hct 23.7 L (39.0-53.0) % Neutrophils # (1.3-7.7) k/uL Lymphocytes # (1.0-4.8) k/uL Monocytes # (0-1.0) k/uL PT (9.0-12.0) sec INR (<1.2) APTT (22.0-30.0) sec ABG pCO2 (35-45) mmHg ABG pO2 (83-108) mmHg ABG HCO3 (21-25) mmol/L ABG Total CO2 (19-24) mmol/L ABG O2 Saturation (94-97) % BUN (9-20) mg/dL Glucose (74-99) mg/dL POC Glucose (mg/dL) 143 H 130 H (75-99) mg/dL Calcium (8.4-10.2) mg/dL Ionized Calcium Rich (4.5-5.3) mg/dL Magnesium (1.6-2.3) mg/dL AST (17-59) U/L ALT (21-72) U/L Alkaline Phosphatase (38-126) U/L Total Protein (6.3-8.2) g/dL Albumin (3.5-5.0) g/dL Crossmatch 12/14/18 12/14/18 Range/Units 10:08 11:18 WBC (3.8-10.6) k/uL RBC (4.30-5.90) m/uL Hgb (13.0-17.5) gm/dL Hct (39.0-53.0) % Neutrophils # (1.3-7.7) k/uL Lymphocytes # (1.0-4.8) k/uL Monocytes # (0-1.0) k/uL PT (9.0-12.0) sec INR (<1.2) APTT (22.0-30.0) sec ABG pCO2 (35-45) mmHg ABG pO2 (83-108) mmHg ABG HCO3 (21-25) mmol/L ABG Total CO2 (19-24) mmol/L ABG O2 Saturation (94-97) % BUN (9-20) mg/dL Glucose (74-99) mg/dL POC Glucose (mg/dL) 168 H 166 H (75-99) mg/dL Calcium (8.4-10.2) mg/dL Ionized Calcium Rich (4.5-5.3) mg/dL Magnesium (1.6-2.3) mg/dL AST (17-59) U/L ALT (21-72) U/L Alkaline Phosphatase (38-126) U/L Total Protein (6.3-8.2) g/dL Albumin (3.5-5.0) g/dL Crossmatch Assessment and Plan Plan: Assessment: #1. Coronary artery disease status post off pump coronary artery bypass surgery with 4 vessel bypass including a FLORES to LAD and saphenous finger graft to PDA circumflex branch. She is postop day #1. The patient is hemodynamically stable. All of the hemodynamic parameters are appropriate. His index is at 3.5. His PA diastolic is at 14 and the patient's CVP is at 66. The chest x-rays showing some increased interstitial infiltrates bilaterally more so on the consolidation of the right lung. The possibility of pneumonia is felt to be less likely, however, it cannot be completely excluded on to the patient's white cell count is slightly higher is still is having significant amount of rest or secretions and pulmonary congestion which was also present preoperatively. #2. Post thoracotomy ventilator support. The patient was extubated without any major difficulties #3. CHF with an impaired preop ejection fraction of 30-35%. #4. History of Hypertension #5. Hypothyroid #6. Diabetes mellitus type 2 #7. chronic obstructive pulmonary disease, and bedside spirometry is poor with an FEV1 of less than 30% of predicted. #8. Nicotine dependence, patient carries over 50 years of smoking history of less then a pack a day #9 mild leukocytosis Plan The patient is doing very well. He extubated without any major difficulties to a BiPAP. I'm inclined to realize the BiPAP again throughout the night to support his breathing knowing that he has advanced COPD and his FEV1 is less than 30%. He recently quit smoking. Is producing a lot of sputum and he has a congested cough. Would like to continue the DuoNeb nebulized treatments around the clock, continued IV Solu-Medrol and restart the Mucinex for cough and congestion. As for the chest x-ray findings, this may be interstitial edema. Infection is felt to be less likely at not completely excluded. Based on his overall condition and based on his borderline pulmonary status, I think it's reasonable to cover him with antibiotics and I would suggest starting given IV Zosyn 3.375 g every 12 hours. We'll collect sputum sample if possible. Repeat chest x-ray in the morning. Do not diurese yet knowing that his CVP is low and his PA diastolic is low and the patient is producing adequate amount of urine output. Chest his will be kept in place for today. Continue insulin drip for blood sugar control. Aggressive pulmonary toileting. We'll continue to follow.
[2018-12-14 12:20] LABS: Glucose,Whole Blood 170 mg/dL (75-99)
[2018-12-14 12:20] LABS: Glucose,Whole Blood 169 mg/dL (75-99)
[2018-12-14] MEDS ORDERED: PIPERACILLIN-TAZOBACTAM 3.375 GM in SODIUM CHLORIDE 0.9% 100 ML IVPB SCH (12:30)
--- NOTE | 2018-12-14 12:35 | P.PN ---
Subjective Progress Note Date: 12/14/18 Principal diagnosis: Multivessel coronary artery disease, non-ST elevated myocardial infarction this admission, acute decompensated systolic heart failure with an ejection fraction of 30-35% per 2-D echocardiogram, hypertension, hyperlipidemia, insulin- dependent diabetes mellitus with admission hemoglobin A1c 6.6%, obesity, hypothyroid, bipolar disorder/posttraumatic stress disorder, history of syncope and September 2017 with demonstration of fold right lacunar infarct on brain computed tomography scan, ratio right internal carotid artery stenosis 50-69%, current tobacco dependence, severe chronic obstructive pulmonary disease with a preoperative FEV1 of 28% of predicted value and osteoarthritis with previous right hip surgery. POD #1 off-pump coronary artery bypass grafting 4 with sequential left internal mammary artery to the diagonal order artery and left anterior descending coronary artery, a reverse greater saphenous vein graft sequential to the posterior descending coronary artery and the posterior lateral branch of the circumflex coronary artery with endovascular vein harvest of the left greater saphenous vein. Intraoperative transesophageal echocardiogram performed by anesthesia. Patient is currently sitting up to the bedside chair. He is in no acute distress. He denies any complaints of pain or shortness of breath this time. He remains hemodynamically stable, current cardiac output 7.6, cardiac index 3.5 , PA pressures 43/14, CVP 6. His currently on 5 L nasal cannula with oxygen saturations 97% and he is achieving 750 mL on his incentive spirometry. WBC count today is 14.5 and he remains afebrile. Objective - Vital Signs Vital signs: Vital Signs Temp 98.6 F 12/14/18 08:00 Pulse 76 12/14/18 10:00 Resp 18 12/14/18 10:00 BP 112/55 12/14/18 10:00 Pulse Ox 96 12/14/18 10:00 Intake & Output 12/13/18 12/14/18 12/14/18 18:59 06:59 18:59 Intake Total 537.949 7279.452 173.715 Output Total 1335 1195 27 Balance -504.668 203.452 146.715 Weight 94 kg 97.5 kg Intake: IV 307 1126 56 0.9NS Pressure Bag 54 33 3 ACETAMINOPHEN IV (For NPO 200 ) 1,000 mg In Empty Bag 1 bag @ 400 mls/hr IVPB Q6HR [facility] Rx#:[id number] Albumin Human 25% 50 ml 250 In Empty Bag 1 bag @ 100 mls/hr IVPB ONCE ONE Rx#: [id number] Cardiac Output 120 60 Lactated Ringers 100 550 50 Nitroglycerin-D5w Pmx 50 33 3 mg In Dextrose/Water 1 250ml.bag @ 5 MCG/MIN 1.5 mls/hr IV .Q24H [facility] Rx#: [id number] Intake, IV Titration 523.332 92.452 117.715 Amount ACETAMINOPHEN IV (For NPO 100 ) 1,000 mg In Empty Bag 1 bag @ 400 mls/hr IVPB Q6HR [facility] Rx#:[id number] Calcium Chloride 1,000 mg 100 In Sodium Chloride 0.9% 100 ml @ 100 mls/hr IV ONCE [facility] Rx#:[id number] Clevidipine Butyrate 25 0.2 49.8 mg In Empty Bag 1 bag @ 1 MG/HR 2 mls/hr IV .Q24H [facility] Rx#:[id number] Dexmedetomidine/0.9% NaCl 27.73 71.675 25.303 (Pmx) 400 mcg In Empty Bag 1 bag @ Titrate IV . Q0M [facility] Rx#:[id number] Insulin Regular 100 unit 9.527 6.845 In Sodium Chloride 0.9% 100 ml @ Per Protocol IV .Q0M [facility] Rx#:[id number] Lactated Ringers 1,000 ml 250 @ 50 mls/hr IV .Q20H [facility] Rx#:[id number] Nitroglycerin-D5w Pmx 50 11.25 35.767 mg In Dextrose/Water 1 250ml.bag @ 5 MCG/MIN 1.5 mls/hr IV .Q24H [facility] Rx#: [id number] Propofol 1,000 mg In 45.402 Empty Bag 1 bag @ Titrate IV .Q0M [facility] Rx#: [id number] Oral 180 Output: Chest Tube Drainage 310 655 Left and Right Pleural 190 478 chest tube Mediastinal Chest tube 120 177 Urine 525 540 27 Estimated Blood Loss 500 Other: Voiding Method Indwelling Catheter Indwelling Catheter ABP, PAP, CO, CI - Last Documented Arterial Blood Pressure 127/42 Pulmonary Artery Pressure 45/15 Cardiac Output 7.6 Cardiac Index 3.5 - Constitutional General appearance: Present: cooperative, no acute distress, obese - Respiratory Details: Lung sounds are diminished throughout with scattered rhonchi. Respirations are symmetrical and nonlabored. Oxygen saturation are 97% on 5 L nasal cannula. He is achieving 750 mm on his incentive spirometry. Mediastinal, left and right pleural chest tubes in place to low continuous wall suction -20 cm H2O. No air leak is present. Chest tubes are draining thin serosanguineous drainage. Mediastinal chest tubes drained 110 mL output in the last 8 hours, 270 mL since surgery. Left and right pleural chest tubes drained 340 mL output in the last 8 hours, 770 mL output since surgery. Productive cough with thin yellow sputum. - Cardiovascular Details: Regular rhythm and rate. S1 and S2 present, negative for S3, gallop or murmur. Sternum is stable. Bedside telemetry showing normal sinus rhythm heart rate 75. Heart hugger is in place and demonstrating appropriate use with much encouragement. Knee-high JORGE hose and sequential compression devices in place to his bilateral lower extremities. No edema present. Right IJ Cordis with [place]in catheter in place. Current cardiac output 7.6, cardiac index 3.5, PA pressures 43/14, CVP 6 mmHg. Right radial arterial line in place and functioning. - Gastrointestinal Gastrointestinal Comment(s): Abdomen is soft, nontender and nondistended. Active bowel sounds to all 4 abdominal quadrants. Tolerating oral intake. Passing flatus. No guarding or rigidity. No organomegaly. - Genitourinary Genitourinary Comment(s): Rtipp catheter for accurate I&O. Draining clear megan urine. 385 mL output in the last 8 hours. - Integumentary Integumentary Comment(s): Skin is warm and dry. No clubbing or cyanosis present. Midline sternal incision is clean, dry and approximated. No drainage or redness present. Because dressing is clean and dry. Left lower extremity EVH site clean, dry and approximated. No drainage or redness present. - Neurologic Neurologic: Present: CNII-XII intact - Musculoskeletal Musculoskeletal: Present: generalized weakness, strength equal bilaterally - Psychiatric Psychiatric: Present: A&O x's 3, appropriate affect, intact judgment & insight - Allied health notes Allied health notes reviewed: nursing - Labs CBC & Chem 7: 12/14/18 09:00 12/14/18 04:50 Labs: Abnormal Lab Results - Last 24 Hours (Table) 12/12/18 12/13/18 12/13/18 Range/Units 10:55 12:33 12:33 WBC 13.4 H (3.8-10.6) k/uL RBC 2.29 L (4.30-5.90) m/uL Hgb 6.9 L* D (13.0-17.5) gm/dL Hct 21.5 L (39.0-53.0) % Neutrophils # 12.0 H (1.3-7.7) k/uL Lymphocytes # 0.6 L (1.0-4.8) k/uL Monocytes # (0-1.0) k/uL PT (9.0-12.0) sec INR (<1.2) APTT (22.0-30.0) sec ABG pCO2 (35-45) mmHg ABG pO2 (83-108) mmHg ABG HCO3 (21-25) mmol/L ABG Total CO2 (19-24) mmol/L ABG O2 Saturation (94-97) % BUN 46 H (9-20) mg/dL Glucose 119 H (74-99) mg/dL POC Glucose (mg/dL) (75-99) mg/dL Calcium 7.1 L (8.4-10.2) mg/dL Ionized Calcium Rich 4.2 L (4.5-5.3) mg/dL Magnesium 2.6 H (1.6-2.3) mg/dL AST 133 H (17-59) U/L ALT 108 H (21-72) U/L Alkaline Phosphatase 22 L (38-126) U/L Total Protein 5.3 L (6.3-8.2) g/dL Albumin 3.3 L (3.5-5.0) g/dL Crossmatch See Detail 12/13/18 12/13/18 12/13/18 Range/Units 12:33 12:36 12:50 WBC (3.8-10.6) k/uL RBC (4.30-5.90) m/uL Hgb (13.0-17.5) gm/dL Hct (39.0-53.0) % Neutrophils # (1.3-7.7) k/uL Lymphocytes # (1.0-4.8) k/uL Monocytes # (0-1.0) k/uL PT (9.0-12.0) sec INR 1.2 H (<1.2) APTT (22.0-30.0) sec ABG pCO2 47 H (35-45) mmHg ABG pO2 124 H (83-108) mmHg ABG HCO3 26 H (21-25) mmol/L ABG Total CO2 28 H (19-24) mmol/L ABG O2 Saturation 98.8 H (94-97) % BUN (9-20) mg/dL Glucose (74-99) mg/dL POC Glucose (mg/dL) 136 H (75-99) mg/dL Calcium (8.4-10.2) mg/dL Ionized Calcium Rich (4.5-5.3) mg/dL Magnesium (1.6-2.3) mg/dL AST (17-59) U/L ALT (21-72) U/L Alkaline Phosphatase (38-126) U/L Total Protein (6.3-8.2) g/dL Albumin (3.5-5.0) g/dL Crossmatch 12/13/18 12/13/18 12/13/18 Range/Units 13:16 14:07 15:38 WBC 19.6 H (3.8-10.6) k/uL RBC 2.61 L (4.30-5.90) m/uL Hgb 7.8 L (13.0-17.5) gm/dL Hct 24.4 L (39.0-53.0) % Neutrophils # 17.3 H (1.3-7.7) k/uL Lymphocytes # 0.7 L (1.0-4.8) k/uL Monocytes # 1.3 H (0-1.0) k/uL PT (9.0-12.0) sec INR (<1.2) APTT (22.0-30.0) sec ABG pCO2 (35-45) mmHg ABG pO2 (83-108) mmHg ABG HCO3 (21-25) mmol/L ABG Total CO2 (19-24) mmol/L ABG O2 Saturation (94-97) % BUN (9-20) mg/dL Glucose (74-99) mg/dL POC Glucose (mg/dL) 118 H 100 H (75-99) mg/dL Calcium (8.4-10.2) mg/dL Ionized Calcium Rich (4.5-5.3) mg/dL Magnesium (1.6-2.3) mg/dL AST (17-59) U/L ALT (21-72) U/L Alkaline Phosphatase (38-126) U/L Total Protein (6.3-8.2) g/dL Albumin (3.5-5.0) g/dL Crossmatch 12/13/18 12/13/18 12/13/18 Range/Units 15:54 16:09 17:12 WBC (3.8-10.6) k/uL RBC (4.30-5.90) m/uL Hgb (13.0-17.5) gm/dL Hct (39.0-53.0) % Neutrophils # (1.3-7.7) k/uL Lymphocytes # (1.0-4.8) k/uL Monocytes # (0-1.0) k/uL PT (9.0-12.0) sec INR (<1.2) APTT (22.0-30.0) sec ABG pCO2 (35-45) mmHg ABG pO2 (83-108) mmHg ABG HCO3 (21-25) mmol/L ABG Total CO2 (19-24) mmol/L ABG O2 Saturation (94-97) % BUN (9-20) mg/dL Glucose (74-99) mg/dL POC Glucose (mg/dL) 135 H 138 H 147 H (75-99) mg/dL Calcium (8.4-10.2) mg/dL Ionized Calcium Rich (4.5-5.3) mg/dL Magnesium (1.6-2.3) mg/dL AST (17-59) U/L ALT (21-72) U/L Alkaline Phosphatase (38-126) U/L Total Protein (6.3-8.2) g/dL Albumin (3.5-5.0) g/dL Crossmatch 12/13/18 12/13/18 12/13/18 Range/Units 18:31 18:34 20:06 WBC (3.8-10.6) k/uL RBC (4.30-5.90) m/uL Hgb (13.0-17.5) gm/dL Hct (39.0-53.0) % Neutrophils # (1.3-7.7) k/uL Lymphocytes # (1.0-4.8) k/uL Monocytes # (0-1.0) k/uL PT (9.0-12.0) sec INR (<1.2) APTT (22.0-30.0) sec ABG pCO2 (35-45) mmHg ABG pO2 75 L (83-108) mmHg ABG HCO3 27 H (21-25) mmol/L ABG Total CO2 28 H (19-24) mmol/L ABG O2 Saturation (94-97) % BUN (9-20) mg/dL Glucose (74-99) mg/dL POC Glucose (mg/dL) 134 H 101 H (75-99) mg/dL Calcium (8.4-10.2) mg/dL Ionized Calcium Rich (4.5-5.3) mg/dL Magnesium (1.6-2.3) mg/dL AST (17-59) U/L ALT (21-72) U/L Alkaline Phosphatase (38-126) U/L Total Protein (6.3-8.2) g/dL Albumin (3.5-5.0) g/dL Crossmatch 12/13/18 12/13/18 12/13/18 Range/Units 20:10 20:10 20:10 WBC (3.8-10.6) k/uL RBC 2.39 L (4.30-5.90) m/uL Hgb 7.3 L (13.0-17.5) gm/dL Hct 22.3 L (39.0-53.0) % Neutrophils # 8.8 H (1.3-7.7) k/uL Lymphocytes # 0.6 L (1.0-4.8) k/uL Monocytes # (0-1.0) k/uL PT (9.0-12.0) sec INR (<1.2) APTT 30.2 H (22.0-30.0) sec ABG pCO2 (35-45) mmHg ABG pO2 (83-108) mmHg ABG HCO3 (21-25) mmol/L ABG Total CO2 (19-24) mmol/L ABG O2 Saturation (94-97) % BUN 43 H (9-20) mg/dL Glucose (74-99) mg/dL POC Glucose (mg/dL) (75-99) mg/dL Calcium 7.7 L (8.4-10.2) mg/dL Ionized Calcium Rich (4.5-5.3) mg/dL Magnesium 2.5 H (1.6-2.3) mg/dL AST 154 H (17-59) U/L ALT 155 H (21-72) U/L Alkaline Phosphatase 28 L (38-126) U/L Total Protein 5.2 L (6.3-8.2) g/dL Albumin 3.2 L (3.5-5.0) g/dL Crossmatch 12/13/18 12/13/18 12/13/18 Range/Units 21:07 22:05 23:16 WBC (3.8-10.6) k/uL RBC (4.30-5.90) m/uL Hgb (13.0-17.5) gm/dL Hct (39.0-53.0) % Neutrophils # (1.3-7.7) k/uL Lymphocytes # (1.0-4.8) k/uL Monocytes # (0-1.0) k/uL PT (9.0-12.0) sec INR (<1.2) APTT (22.0-30.0) sec ABG pCO2 (35-45) mmHg ABG pO2 (83-108) mmHg ABG HCO3 (21-25) mmol/L ABG Total CO2 (19-24) mmol/L ABG O2 Saturation (94-97) % BUN (9-20) mg/dL Glucose (74-99) mg/dL POC Glucose (mg/dL) 117 H 163 H 128 H (75-99) mg/dL Calcium (8.4-10.2) mg/dL Ionized Calcium Rich (4.5-5.3) mg/dL Magnesium (1.6-2.3) mg/dL AST (17-59) U/L ALT (21-72) U/L Alkaline Phosphatase (38-126) U/L Total Protein (6.3-8.2) g/dL Albumin (3.5-5.0) g/dL Crossmatch 12/14/18 12/14/18 12/14/18 Range/Units 00:04 03:00 04:09 WBC (3.8-10.6) k/uL RBC (4.30-5.90) m/uL Hgb (13.0-17.5) gm/dL Hct (39.0-53.0) % Neutrophils # (1.3-7.7) k/uL Lymphocytes # (1.0-4.8) k/uL Monocytes # (0-1.0) k/uL PT (9.0-12.0) sec INR (<1.2) APTT (22.0-30.0) sec ABG pCO2 (35-45) mmHg ABG pO2 (83-108) mmHg ABG HCO3 (21-25) mmol/L ABG Total CO2 (19-24) mmol/L ABG O2 Saturation (94-97) % BUN (9-20) mg/dL Glucose (74-99) mg/dL POC Glucose (mg/dL) 107 H 73 L 58 L (75-99) mg/dL Calcium (8.4-10.2) mg/dL Ionized Calcium Rich (4.5-5.3) mg/dL Magnesium (1.6-2.3) mg/dL AST (17-59) U/L ALT (21-72) U/L Alkaline Phosphatase (38-126) U/L Total Protein (6.3-8.2) g/dL Albumin (3.5-5.0) g/dL Crossmatch 12/14/18 12/14/18 12/14/18 Range/Units 04:50 04:50 04:50 WBC 13.0 H (3.8-10.6) k/uL RBC 2.65 L (4.30-5.90) m/uL Hgb 7.7 L (13.0-17.5) gm/dL Hct 24.1 L (39.0-53.0) % Neutrophils # 12.3 H (1.3-7.7) k/uL Lymphocytes # 0.3 L (1.0-4.8) k/uL Monocytes # (0-1.0) k/uL PT 12.3 H (9.0-12.0) sec INR 1.2 H (<1.2) APTT 32.0 H (22.0-30.0) sec ABG pCO2 (35-45) mmHg ABG pO2 (83-108) mmHg ABG HCO3 (21-25) mmol/L ABG Total CO2 (19-24) mmol/L ABG O2 Saturation (94-97) % BUN 47 H (9-20) mg/dL Glucose 152 H (74-99) mg/dL POC Glucose (mg/dL) (75-99) mg/dL Calcium 7.8 L (8.4-10.2) mg/dL Ionized Calcium Rich (4.5-5.3) mg/dL Magnesium 2.4 H (1.6-2.3) mg/dL AST 133 H (17-59) U/L ALT 128 H (21-72) U/L Alkaline Phosphatase 32 L (38-126) U/L Total Protein 5.2 L (6.3-8.2) g/dL Albumin 3.1 L (3.5-5.0) g/dL Crossmatch 12/14/18 12/14/18 12/14/18 Range/Units 04:50 06:17 07:12 WBC (3.8-10.6) k/uL RBC (4.30-5.90) m/uL Hgb (13.0-17.5) gm/dL Hct (39.0-53.0) % Neutrophils # (1.3-7.7) k/uL Lymphocytes # (1.0-4.8) k/uL Monocytes # (0-1.0) k/uL PT (9.0-12.0) sec INR (<1.2) APTT (22.0-30.0) sec ABG pCO2 (35-45) mmHg ABG pO2 (83-108) mmHg ABG HCO3 (21-25) mmol/L ABG Total CO2 (19-24) mmol/L ABG O2 Saturation (94-97) % BUN (9-20) mg/dL Glucose (74-99) mg/dL POC Glucose (mg/dL) 168 H 189 H 179 H (75-99) mg/dL Calcium (8.4-10.2) mg/dL Ionized Calcium Rich (4.5-5.3) mg/dL Magnesium (1.6-2.3) mg/dL AST (17-59) U/L ALT (21-72) U/L Alkaline Phosphatase (38-126) U/L Total Protein (6.3-8.2) g/dL Albumin (3.5-5.0) g/dL Crossmatch 12/14/18 12/14/18 12/14/18 Range/Units 08:29 09:00 09:04 WBC 14.5 H (3.8-10.6) k/uL RBC 2.55 L (4.30-5.90) m/uL Hgb 7.6 L (13.0-17.5) gm/dL Hct 23.7 L (39.0-53.0) % Neutrophils # (1.3-7.7) k/uL Lymphocytes # (1.0-4.8) k/uL Monocytes # (0-1.0) k/uL PT (9.0-12.0) sec INR (<1.2) APTT (22.0-30.0) sec ABG pCO2 (35-45) mmHg ABG pO2 (83-108) mmHg ABG HCO3 (21-25) mmol/L ABG Total CO2 (19-24) mmol/L ABG O2 Saturation (94-97) % BUN (9-20) mg/dL Glucose (74-99) mg/dL POC Glucose (mg/dL) 143 H 130 H (75-99) mg/dL Calcium (8.4-10.2) mg/dL Ionized Calcium Rich (4.5-5.3) mg/dL Magnesium (1.6-2.3) mg/dL AST (17-59) U/L ALT (21-72) U/L Alkaline Phosphatase (38-126) U/L Total Protein (6.3-8.2) g/dL Albumin (3.5-5.0) g/dL Crossmatch 12/14/18 12/14/18 Range/Units 10:08 11:18 WBC (3.8-10.6) k/uL RBC (4.30-5.90) m/uL Hgb (13.0-17.5) gm/dL Hct (39.0-53.0) % Neutrophils # (1.3-7.7) k/uL Lymphocytes # (1.0-4.8) k/uL Monocytes # (0-1.0) k/uL PT (9.0-12.0) sec INR (<1.2) APTT (22.0-30.0) sec ABG pCO2 (35-45) mmHg ABG pO2 (83-108) mmHg ABG HCO3 (21-25) mmol/L ABG Total CO2 (19-24) mmol/L ABG O2 Saturation (94-97) % BUN (9-20) mg/dL Glucose (74-99) mg/dL POC Glucose (mg/dL) 168 H 166 H (75-99) mg/dL Calcium (8.4-10.2) mg/dL Ionized Calcium Rich (4.5-5.3) mg/dL Magnesium (1.6-2.3) mg/dL AST (17-59) U/L ALT (21-72) U/L Alkaline Phosphatase (38-126) U/L Total Protein (6.3-8.2) g/dL Albumin (3.5-5.0) g/dL Crossmatch - Imaging and Cardiology Chest x-ray: image reviewed Assessment and Plan (1) Elevated serum creatinine Current Visit: Yes Status: Acute Code(s): R79.89 - OTHER SPECIFIED ABNORMAL FINDINGS OF BLOOD CHEMISTRY SNOMED Code(s): 381593609 (2) COPD (chronic obstructive pulmonary disease) Current Visit: Yes Status: Acute Code(s): J44.9 - CHRONIC OBSTRUCTIVE PULMONARY DISEASE, UNSPECIFIED SNOMED Code(s): 67389007 (3) Coronary artery disease Current Visit: Yes Status: Acute Code(s): I25.10 - ATHSCL HEART DISEASE OF [place] CORONARY ARTERY W/O ANG PCTRS SNOMED Code(s): 65307223 (4) Acute systolic heart failure Current Visit: Yes Status: Acute Code(s): I50.21 - ACUTE SYSTOLIC ( CONGESTIVE) HEART FAILURE SNOMED Code(s): 518591868 (5) Non-STEMI (non-ST elevated myocardial infarction) Current Visit: Yes Status: Acute Code(s): I21.4 - NON-ST ELEVATION (NSTEMI) MYOCARDIAL INFARCTION SNOMED Code(s): 53408588 (6) Bipolar disorder Current Visit: Yes Status: Chronic Code(s): F31.9 - BIPOLAR DISORDER, UNSPECIFIED SNOMED Code(s): 79878424 (7) Hyperlipidemia associated with type 2 diabetes mellitus Current Visit: Yes Status: Chronic Code(s): E11.69 - TYPE 2 DIABETES MELLITUS WITH OTHER SPECIFIED COMPLICATION; E78.5 - HYPERLIPIDEMIA, UNSPECIFIED SNOMED Code(s): 405888688292 (8) Hypertension Current Visit: Yes Status: Chronic Code(s): I10 - ESSENTIAL (PRIMARY) HYPERTENSION SNOMED Code(s): 87396058 (9) Hypoactive thyroid Current Visit: Yes Status: Chronic Code(s): E03.9 - HYPOTHYROIDISM, UNSPECIFIED SNOMED Code(s): 20192883 (10) Stenosis of right carotid artery greater than 50% Current Visit: Yes Status: Chronic Code(s): I65.21 - OCCLUSION AND STENOSIS OF RIGHT CAROTID ARTERY SNOMED Code(s): 687837207223738 (11) Tobacco dependence Current Visit: Yes Status: Chronic Code(s): F17.200 - NICOTINE DEPENDENCE, UNSPECIFIED, UNCOMPLICATED SNOMED Code(s): 33932120 (12) Anxiety and depression Current Visit: No Status: Acute Code(s): F41.9 - ANXIETY DISORDER, UNSPECIFIED SNOMED Code(s): 93932491 (13) Diabetes Current Visit: No Status: Acute Code(s): E11.9 - TYPE 2 DIABETES MELLITUS WITHOUT COMPLICATIONS SNOMED Code(s): 09662707 Plan: 1. Continue aspirin, statin, Plavix and beta sergio. Will increase beta sergio as tolerated. 2. Discontinue [place]in catheter, connect Cordis to continuous CVP monitoring. 3. Wean O2 as tolerated. Encourage and some spirometry is 10 times every hour while awake. 4. Increase activity as tolerated, ambulate in hallway. PT/OT/cardiac rehab following. 5. Bronchodilators management per pulmonology. 6. Pain controlled current medication regimen. 7. Will monitor daily labs and x-rays. Electrolyte replacement per protocol. 8. Insulin management per primary care service. 9. GI prophylaxis with Protonix, DVT prophylaxis with subcu heparin, SCDs. 10. Continue mediastinal, left and right pleural chest tubes to low continuous wall suction at -20 cm H2O. 11. More recommendations to follow based on patient's clinical course. Time with Patient: Greater than 30
[2018-12-14] MEDS: IPRATROPIUM-ALBUTEROL 3 ML NEB INHALATION SCH ×3 (13:09→19:33)
[2018-12-14 13:30] LABS: Glucose,Whole Blood 197 mg/dL (75-99)
--- NOTE | 2018-12-14 14:10 | XR ---
EXAMINATION TYPE: XR chest 1V portable DATE OF EXAM: 12/14/2018 HISTORY: Post Operative Cardiac Surgery. REFERENCE: Previous study dated 12/13/2018. FINDINGS: The patient has been extubated. The NG tube is been removed. A [place]in catheter remains i n place via a right internal jugular approach. Its tip appears to be in the right pulmonary artery. T here are bilateral pleural drains in place. The heart is enlarged. There is bibasilar airspace disease worse on the right than the left. There is a small right effusion. IMPRESSION: CONTINUING POSTOPERATIVE CHANGE.
[2018-12-14] MEDS ORDERED: FUROSEMIDE 10 MG/ML 4 ML VIAL IV STA (14:17)
[2018-12-14 14:21] LABS: Glucose,Whole Blood 233 mg/dL (75-99)
[2018-12-14 16:05] LABS: Glucose,Whole Blood 218 mg/dL (75-99)
[2018-12-14 17:45] LABS: Glucose,Whole Blood 119 mg/dL (75-99)
--- NOTE | 2018-12-14 18:13 | PN ---
PROGRESS NOTE DATE OF SERVICE: 12/14/2018 This 68-year-old gentleman admitted with acute myocardial infarction, had CAD, CABG x4. The patient is extubated. Patient being closely monitored. Chest tube sensitive. The blood sugar is being closely monitored. The patient is on 1.5 units insulin. No chest pain. No palpitations. PAST MEDICAL HISTORY: Reviewed. REVIEW OF SYSTEMS: CARDIOVASCULAR: No angina or palpitations. RESPIRATORY: As mentioned earlier. GI: As mentioned earlier. : As mentioned earlier. CENTRAL NERVOUS SYSTEM: No numbness or weakness. CURRENT MEDICATIONS: Reviewed and include: 1. [place] 5 mg q.4h p.r.n. 2. Albuterol. 3. DuoNeb q.i.d. and p.r.n. 4. Amiodarone drip. 5. Aspirin 320 mg p.o. daily. 7. Kefzol 2 g IV q.8h. 8. Plavix. 10.Heparin 5000 subcu q.8. 11.Synthroid. 12.Solu-Medrol 60 IV q.6h. PHYSICAL EXAM: Patient is alert, oriented x3. Pulse 76, blood pressure 125/80. Respirations 18. Temperature is normal. Pulse ox 97% on 5 L. HEENT: Conjunctivae normal. Oral mucosa moist. Neck is no jugular venous distention. No carotid bruit. No lymph node enlargement. Cardiovascular system: S1, S2 muffled. RESPIRATORY: Breath sounds diminished in the bases. A few scattered rhonchi and crackles. ABDOMEN: Soft, nontender. CENTRAL NERVOUS SYSTEM: No focal deficits. LABS: Labs are noted. Glucose 187, 233. WBC 14. Hemoglobin 7.6, AST is 130, ALT is 128. ASSESSMENT: 1. Coronary artery disease status post coronary artery bypass grafting x4. 2. History of recent acute non-ST segment elevation myocardial infarction. 3. Acute hypoxic respiratory failure. Acute systolic congestive heart failure. 4. Chronic obstructive pulmonary disease withless than 30%. 5. Acute renal failure, prerenal azotemia secondary to congestive heart failure. 6. Elevated AST/ALT. 7. Chronic kidney disease, diabetic nephropathy. 8. Diabetes mellitus type 2. 9. Hypertension. 10.Hyperlipidemia. 11.Hypothyroidism. 12.PTSD, bipolar disorder. 13.History of nicotine dependence. 14.History of old right lacunar infarct in the old CT scan. RECOMMENDATIONS AND DISCUSSION: Recommend to continue current medications, management and symptomatic treatment. Monitor blood sugars closely. Recommend continue. DVT prophylaxis. Bronchodilators. Incentive spirometry. Continue the rest of medications. We will follow the patient closely with you. Further recommendations to follow. FLORIAN / PRASHANTN: [id number] / MTDD
[2018-12-14 19:09] LABS: Glucose,Whole Blood 168 mg/dL (75-99)
[2018-12-14 20:12] LABS: Glucose,Whole Blood 222 mg/dL (75-99)
[2018-12-14] MEDS: guaiFENesin 600 MG TABLET.ER PO SCH (20:12)
[2018-12-14] MEDS: SENNOSIDES-DOCUSATE SODIUM 1 EACH TAB PO SCH (20:13)
[2018-12-14 21:05] LABS: Glucose,Whole Blood 206 mg/dL (75-99)
[2018-12-14 22:16] LABS: Glucose,Whole Blood 140 mg/dL (75-99)
[2018-12-14 23:00] LABS: Glucose,Whole Blood 112 mg/dL (75-99)
[2018-12-15 00:07] LABS: Glucose,Whole Blood 162 mg/dL (75-99)
[2018-12-15] MEDS: HEPARIN SODIUM,PORCINE 5,000 UNIT/ML 1 ML VIAL SQ SCH ×3 (00:47→17:24)
[2018-12-15] MEDS: methylPREDNISolone SOD SUCCI 125 MG/2 ML VIAL IV SCH ×2 (00:48→06:03)
[2018-12-15 01:03] LABS: Glucose,Whole Blood 169 mg/dL (75-99)
[2018-12-15] MEDS: ceFAZolin IN SWFI 2 GM/20 ML SYRINGE IVP SCH ×2 (01:03→08:06)
[2018-12-15 02:00] LABS: Glucose,Whole Blood 131 mg/dL (75-99)
[2018-12-15 03:08] LABS: Glucose,Whole Blood 197 mg/dL (75-99)
[2018-12-15 04:03] LABS: Glucose,Whole Blood 200 mg/dL (75-99)
[2018-12-15 05:00] LABS: Glucose,Whole Blood 226 mg/dL (75-99)
[2018-12-15 05:00] LABS: Glucose,Whole Blood 72 mg/dL (75-99)
[2018-12-15 05:14] LABS: Basophils % (A) 0 %; Eosinophils % (A) 0 %; HGB 7.5 gm/dL (13.0-17.5); Lymphocytes # (A) 0.4 k/uL (1.0-4.8); Lymphocytes % (A) 2 %; MCHC 32.7 g/dL (31.0-37.0); MCV 91.8 fL (80.0-100.0); Mean Platelet Volume 6.6; Monocytes # (A) 0.4 k/uL (0-1.0); Monocytes % (A) 2 %; Neutrophils % (A) 95 %; Platelet Count 280 k/uL (150-450); RBC 2.51 m/uL (4.30-5.90); RDW 13.1 % (11.5-15.5); WBC 16.8 k/uL (3.8-10.6)
[2018-12-15 05:26] LABS: Ionized Calcium 4.5 mg/dL (4.5-5.3)
[2018-12-15 05:34] LABS: Calcium 7.8 mg/dL (8.4-10.2); Magnesium 2.7 mg/dL (1.6-2.3); Potassium 4.4 mmol/L (3.5-5.1); Total Bilirubin 0.6 mg/dL (0.2-1.3); Total Protein 5.2 g/dL (6.3-8.2)
[2018-12-15 06:02] LABS: Glucose,Whole Blood 212 mg/dL (75-99)
[2018-12-15] MEDS: LACTATED RINGERS 1,000 ML IV SCH (06:03)
[2018-12-15] MEDS: LEVOTHYROXINE 75 MCG TAB PO SCH (06:08)
[2018-12-15] MEDS: INSULIN REGULAR 100 UNIT in SODIUM CHLORIDE 0.9% 100 ML IV SCH (06:15)
--- NOTE | 2018-12-15 06:51 | XR ---
EXAMINATION TYPE: XR chest 2V DATE OF EXAM: 12/15/2018 HISTORY: Post op CABG. REFERENCE: Previous study dated 12/14/2018. FINDINGS: There has been a midline sternotomy. The patient [place] catheter is been removed. Right internal jugular sheath persists. The patient's bilateral pleural drains have been removed. The heart is enlarged. There is a bat wing edema appearance. There are small, bilateral effusions. Th e heart is enlarged. I suspect underlying COPD. No definite pneumothorax is identified. IMPRESSION: CHANGES CONSISTENT WITH CONGESTIVE HEART FAILURE.
[2018-12-15 07:18] LABS: Glucose,Whole Blood 140 mg/dL (75-99)
[2018-12-15] MEDS: PANTOPRAZOLE 40 MG TABLET PO SCH (08:05)
[2018-12-15] MEDS: ASPIRIN 325 MG TAB PO SCH (08:06)
[2018-12-15] MEDS: CLOPIDOGREL 75 MG TAB PO SCH (08:07)
[2018-12-15] MEDS: METOPROLOL TARTRATE 12.5 MG TAB PO SCH (08:07)
[2018-12-15] MEDS: ATORVASTATIN 40 MG TAB PO SCH (08:07)
[2018-12-15] MEDS: guaiFENesin 600 MG TABLET.ER PO SCH ×2 (08:07→21:04)
[2018-12-15] MEDS: MUPIROCIN 2% OINT 22 GM TUBE NASAL SCH ×2 (08:07→21:05)
[2018-12-15] MEDS: IPRATROPIUM-ALBUTEROL 3 ML NEB INHALATION SCH ×4 (08:08→19:10)
[2018-12-15 08:28] LABS: Glucose,Whole Blood 172 mg/dL (75-99)
[2018-12-15 08:59] LABS: Glucose,Whole Blood 177 mg/dL (75-99)
[2018-12-15] MEDS ORDERED: METOPROLOL TARTRATE 25 MG TAB PO SCH ×2 (09:00→21:00)
[2018-12-15] MEDS ORDERED: METOPROLOL TARTRATE 12.5 MG TAB PO STA (09:57)
[2018-12-15] MEDS ORDERED: predniSONE 10 MG TAB PO SCH (10:00)
--- NOTE | 2018-12-15 10:02 | P.PN ---
Subjective Progress Note Date: 12/15/18 Principal diagnosis: Multivessel coronary artery disease, non-ST elevated myocardial infarction this admission, acute decompensated systolic heart failure with an ejection fraction of 30-35% per 2-D echocardiogram, hypertension, hyperlipidemia, insulin- dependent diabetes mellitus with admission hemoglobin A1c 6.6%, obesity, hypothyroid, bipolar disorder/posttraumatic stress disorder, history of syncope and September 2017 with demonstration of fold right lacunar infarct on brain computed tomography scan, ratio right internal carotid artery stenosis 50-69%, current tobacco dependence, severe chronic obstructive pulmonary disease with a preoperative FEV1 of 28% of predicted value and osteoarthritis with previous right hip surgery. POD #2 off-pump coronary artery bypass grafting 4 with sequential left internal mammary artery to the diagonal coronary artery and left anterior descending coronary artery, a reverse greater saphenous vein graft sequential to the posterior descending coronary artery and the posterior lateral branch of the circumflex coronary artery with endovascular vein harvest of the left greater saphenous vein. Intraoperative transesophageal echocardiogram performed by anesthesia. Patient is currently sitting up to the bedside chair. He is in no acute distress. He denies any complaints of pain or shortness of breath this time. He remains hemodynamically stable, CVP 15 mmHg. His currently on 2 L nasal cannula with oxygen saturations 93% and he is achieving 750 mL on his incentive spirometry. WBC count today is 16.8 and he remains afebrile. The patient's mediastinal and left and right pleural chest tubes were discontinued yesterday. He reports that he ambulated in the intensive care unit already with assistance yesterday. Objective - Vital Signs Vital signs: Vital Signs Temp 97.6 F 12/15/18 08:00 Pulse 90 12/15/18 08:20 Resp 14 12/15/18 08:00 BP 143/77 12/15/18 08:00 Pulse Ox 96 12/15/18 08:08 Intake & Output 12/14/18 12/15/18 12/15/18 18:59 06:59 18:59 Intake Total 1836.990 909.999 37.767 Output Total 1123 905 Balance 713.990 4.999 37.767 Weight 99.4 kg Intake: IV 584 312 26 0.9NS Pressure Bag 81 72 6 ACETAMINOPHEN IV (For NPO 100 ) 1,000 mg In Empty Bag 1 bag @ 400 mls/hr IVPB Q6HR [facility] Rx#:[id number] Cardiac Output 30 Lactated Ringers 370 240 20 Nitroglycerin-D5w Pmx 50 3 mg In Dextrose/Water 1 250ml.bag @ 5 MCG/MIN 1.5 mls/hr IV .Q24H [facility] Rx#: [id number] Intake, IV Titration 652.990 47.999 11.767 Amount Albumin Human 5% 250 ml 500 In Empty Bag 1 bag @ 250 mls/hr IVPB Q1HR PRN Rx#: [id number] Clevidipine Butyrate 25 49.8 mg In Empty Bag 1 bag @ 1 MG/HR 2 mls/hr IV .Q24H [facility] Rx#:[id number] Dexmedetomidine/0.9% NaCl 25.303 (Pmx) 400 mcg In Empty Bag 1 bag @ Titrate IV . Q0M [facility] Rx#:[id number] Insulin Regular 100 unit 42.120 47.999 11.767 In Sodium Chloride 0.9% 100 ml @ Per Protocol IV .Q0M [facility] Rx#:[id number] Nitroglycerin-D5w Pmx 50 35.767 mg In Dextrose/Water 1 250ml.bag @ 5 MCG/MIN 1.5 mls/hr IV .Q24H [facility] Rx#: [id number] Oral 600 550 Output: Chest Tube Drainage 280 Left and Right Pleural 210 chest tube Mediastinal Chest tube 70 Urine 843 905 Other: Voiding Method Indwelling Catheter Indwelling Catheter # Voids 0 ABP, PAP, CO, CI - Last Documented Arterial Blood Pressure 171/50 Pulmonary Artery Pressure 44/17 Cardiac Output 7.6 Cardiac Index 3.5 - Constitutional General appearance: Present: cooperative, no acute distress, obese - Respiratory Details: Lung sounds with scattered expiratory wheezes and rhonchi, diminished to his bilateral bases. Respirations are symmetrical and nonlabored. Oxygen saturation are 93% on 2 L nasal cannula. Achieving 750 mL on his incentive spirometry with encouragement. - Cardiovascular Details: Regular rhythm and rate. S1 and S2 present, negative for S3, gallop or murmur. Sternum is stable. Bedside telemetry showing sinus tachycardia heart rate 100. Heart hugger is in place and he is demonstrating appropriate use. Right IJ Cordis in place, current CVP pressure 15 mmHg. Right radial arterial line in place and functioning. Knee-high JORGE hose and sequential compression devices in place to his bilateral lower extremities. No edema present. - Gastrointestinal Gastrointestinal Comment(s): Abdomen is soft, nontender and nondistended. Active bowel sounds to all 4 abdominal quadrants. Tolerating oral intake. No cardiac or rigidity. Passing flatus. - Genitourinary Genitourinary Comment(s): Voiding clear megan urine. 585 mL output in the last 8 hours. - Integumentary Integumentary Comment(s): Skin is warm and dry. No clubbing or cyanosis present. Midline sternal incision is clean, dry and approximated. No drainage or redness present. Left lower extremity EVH sites clean, dry and approximated. No drainage or redness present. - Neurologic Neurologic: Present: CNII-XII intact - Musculoskeletal Musculoskeletal: Present: gait normal, generalized weakness, strength equal bilaterally - Psychiatric Psychiatric: Present: A&O x's 3, appropriate affect, intact judgment & insight - Allied health notes Allied health notes reviewed: nursing - Labs CBC & Chem 7: 12/15/18 05:00 12/15/18 05:00 Labs: Abnormal Lab Results - Last 24 Hours (Table) 12/12/18 12/14/18 12/14/18 Range/Units 10:55 10:08 11:18 WBC (3.8-10.6) k/uL RBC (4.30-5.90) m/uL Hgb (13.0-17.5) gm/dL Hct (39.0-53.0) % Neutrophils # (1.3-7.7) k/uL Lymphocytes # (1.0-4.8) k/uL BUN (9-20) mg/dL Glucose (74-99) mg/dL POC Glucose (mg/dL) 168 H 166 H (75-99) mg/dL Calcium (8.4-10.2) mg/dL Magnesium (1.6-2.3) mg/dL AST (17-59) U/L Total Protein (6.3-8.2) g/dL Albumin (3.5-5.0) g/dL Crossmatch See Detail 12/14/18 12/14/18 12/14/18 Range/Units 12:17 12:18 13:15 WBC (3.8-10.6) k/uL RBC (4.30-5.90) m/uL Hgb (13.0-17.5) gm/dL Hct (39.0-53.0) % Neutrophils # (1.3-7.7) k/uL Lymphocytes # (1.0-4.8) k/uL BUN (9-20) mg/dL Glucose (74-99) mg/dL POC Glucose (mg/dL) 170 H 169 H 197 H (75-99) mg/dL Calcium (8.4-10.2) mg/dL Magnesium (1.6-2.3) mg/dL AST (17-59) U/L Total Protein (6.3-8.2) g/dL Albumin (3.5-5.0) g/dL Crossmatch 12/14/18 12/14/18 12/14/18 Range/Units 14:18 15:59 17:42 WBC (3.8-10.6) k/uL RBC (4.30-5.90) m/uL Hgb (13.0-17.5) gm/dL Hct (39.0-53.0) % Neutrophils # (1.3-7.7) k/uL Lymphocytes # (1.0-4.8) k/uL BUN (9-20) mg/dL Glucose (74-99) mg/dL POC Glucose (mg/dL) 233 H 218 H 119 H (75-99) mg/dL Calcium (8.4-10.2) mg/dL Magnesium (1.6-2.3) mg/dL AST (17-59) U/L Total Protein (6.3-8.2) g/dL Albumin (3.5-5.0) g/dL Crossmatch 12/14/18 12/14/18 12/14/18 Range/Units 18:54 19:58 21:01 WBC (3.8-10.6) k/uL RBC (4.30-5.90) m/uL Hgb (13.0-17.5) gm/dL Hct (39.0-53.0) % Neutrophils # (1.3-7.7) k/uL Lymphocytes # (1.0-4.8) k/uL BUN (9-20) mg/dL Glucose (74-99) mg/dL POC Glucose (mg/dL) 168 H 222 H 206 H (75-99) mg/dL Calcium (8.4-10.2) mg/dL Magnesium (1.6-2.3) mg/dL AST (17-59) U/L Total Protein (6.3-8.2) g/dL Albumin (3.5-5.0) g/dL Crossmatch 12/14/18 12/14/18 12/15/18 Range/Units 22:12 22:56 00:05 WBC (3.8-10.6) k/uL RBC (4.30-5.90) m/uL Hgb (13.0-17.5) gm/dL Hct (39.0-53.0) % Neutrophils # (1.3-7.7) k/uL Lymphocytes # (1.0-4.8) k/uL BUN (9-20) mg/dL Glucose (74-99) mg/dL POC Glucose (mg/dL) 140 H 112 H 162 H (75-99) mg/dL Calcium (8.4-10.2) mg/dL Magnesium (1.6-2.3) mg/dL AST (17-59) U/L Total Protein (6.3-8.2) g/dL Albumin (3.5-5.0) g/dL Crossmatch 12/15/18 12/15/18 12/15/18 Range/Units 01:01 01:58 03:05 WBC (3.8-10.6) k/uL RBC (4.30-5.90) m/uL Hgb (13.0-17.5) gm/dL Hct (39.0-53.0) % Neutrophils # (1.3-7.7) k/uL Lymphocytes # (1.0-4.8) k/uL BUN (9-20) mg/dL Glucose (74-99) mg/dL POC Glucose (mg/dL) 169 H 131 H 197 H (75-99) mg/dL Calcium (8.4-10.2) mg/dL Magnesium (1.6-2.3) mg/dL AST (17-59) U/L Total Protein (6.3-8.2) g/dL Albumin (3.5-5.0) g/dL Crossmatch 12/15/18 12/15/18 12/15/18 Range/Units 04:00 04:55 04:56 WBC (3.8-10.6) k/uL RBC (4.30-5.90) m/uL Hgb (13.0-17.5) gm/dL Hct (39.0-53.0) % Neutrophils # (1.3-7.7) k/uL Lymphocytes # (1.0-4.8) k/uL BUN (9-20) mg/dL Glucose (74-99) mg/dL POC Glucose (mg/dL) 200 H 72 L 226 H (75-99) mg/dL Calcium (8.4-10.2) mg/dL Magnesium (1.6-2.3) mg/dL AST (17-59) U/L Total Protein (6.3-8.2) g/dL Albumin (3.5-5.0) g/dL Crossmatch 12/15/18 12/15/18 12/15/18 Range/Units 05:00 05:00 05:59 WBC 16.8 H (3.8-10.6) k/uL RBC 2.51 L (4.30-5.90) m/uL Hgb 7.5 L (13.0-17.5) gm/dL Hct 23.0 L (39.0-53.0) % Neutrophils # 16.0 H (1.3-7.7) k/uL Lymphocytes # 0.4 L (1.0-4.8) k/uL BUN 50 H (9-20) mg/dL Glucose 194 H (74-99) mg/dL POC Glucose (mg/dL) 212 H (75-99) mg/dL Calcium 7.8 L (8.4-10.2) mg/dL Magnesium 2.7 H (1.6-2.3) mg/dL AST 74 H (17-59) U/L Total Protein 5.2 L (6.3-8.2) g/dL Albumin 3.0 L (3.5-5.0) g/dL Crossmatch 12/15/18 12/15/18 12/15/18 Range/Units 07:04 08:15 08:56 WBC (3.8-10.6) k/uL RBC (4.30-5.90) m/uL Hgb (13.0-17.5) gm/dL Hct (39.0-53.0) % Neutrophils # (1.3-7.7) k/uL Lymphocytes # (1.0-4.8) k/uL BUN (9-20) mg/dL Glucose (74-99) mg/dL POC Glucose (mg/dL) 140 H 172 H 177 H (75-99) mg/dL Calcium (8.4-10.2) mg/dL Magnesium (1.6-2.3) mg/dL AST (17-59) U/L Total Protein (6.3-8.2) g/dL Albumin (3.5-5.0) g/dL Crossmatch - Imaging and Cardiology Chest x-ray: report reviewed, image reviewed Assessment and Plan (1) Elevated serum creatinine Current Visit: Yes Status: Acute Code(s): R79.89 - OTHER SPECIFIED ABNORMAL FINDINGS OF BLOOD CHEMISTRY SNOMED Code(s): 023540697 (2) COPD (chronic obstructive pulmonary disease) Current Visit: Yes Status: Acute Code(s): J44.9 - CHRONIC OBSTRUCTIVE PULMONARY DISEASE, UNSPECIFIED SNOMED Code(s): 19950391 (3) Coronary artery disease Current Visit: Yes Status: Acute Code(s): I25.10 - ATHSCL HEART DISEASE OF [place] CORONARY ARTERY W/O ANG PCTRS SNOMED Code(s): 57860979 (4) Acute systolic heart failure Current Visit: Yes Status: Acute Code(s): I50.21 - ACUTE SYSTOLIC ( CONGESTIVE) HEART FAILURE SNOMED Code(s): 391083249 (5) Non-STEMI (non-ST elevated myocardial infarction) Current Visit: Yes Status: Acute Code(s): I21.4 - NON-ST ELEVATION (NSTEMI) MYOCARDIAL INFARCTION SNOMED Code(s): 99944718 (6) Bipolar disorder Current Visit: Yes Status: Chronic Code(s): F31.9 - BIPOLAR DISORDER, UNSPECIFIED SNOMED Code(s): 64082632 (7) Hyperlipidemia associated with type 2 diabetes mellitus Current Visit: Yes Status: Chronic Code(s): E11.69 - TYPE 2 DIABETES MELLITUS WITH OTHER SPECIFIED COMPLICATION; E78.5 - HYPERLIPIDEMIA, UNSPECIFIED SNOMED Code(s): 017117217578 (8) Hypertension Current Visit: Yes Status: Chronic Code(s): I10 - ESSENTIAL (PRIMARY) HYPERTENSION SNOMED Code(s): 49055041 (9) Hypoactive thyroid Current Visit: Yes Status: Chronic Code(s): E03.9 - HYPOTHYROIDISM, UNSPECIFIED SNOMED Code(s): 29577915 (10) Stenosis of right carotid artery greater than 50% Current Visit: Yes Status: Chronic Code(s): I65.21 - OCCLUSION AND STENOSIS OF RIGHT CAROTID ARTERY SNOMED Code(s): 126431590114183 (11) Tobacco dependence Current Visit: Yes Status: Chronic Code(s): F17.200 - NICOTINE DEPENDENCE, UNSPECIFIED, UNCOMPLICATED SNOMED Code(s): 50694183 (12) Anxiety and depression Current Visit: No Status: Acute Code(s): F41.9 - ANXIETY DISORDER, UNSPECIFIED SNOMED Code(s): 97565581 (13) Diabetes Current Visit: No Status: Acute Code(s): E11.9 - TYPE 2 DIABETES MELLITUS WITHOUT COMPLICATIONS SNOMED Code(s): 33581587 Plan: 1. Continue aspirin, statin, Plavix and beta sergio. Will increase metoprolol tartrate 25 mg by mouth twice a day 2. Discontinue right IJ Cordis Cordis and right radial arterial line. 3. Wean O2 as tolerated. Encourage and some spirometry is 10 times every hour while awake. 4. Increase activity as tolerated, ambulate in hallway. PT/OT/cardiac rehab following. 5. Bronchodilators management per pulmonology. Discontinue Solu-Medrol, start prednisone 10 mg by mouth 1 dose today and 5 mg by mouth tomorrow then discontinue. 6. Pain controlled current medication regimen. 7. Will monitor daily labs and x-rays. Electrolyte replacement per protocol. 8. Insulin management per primary care service. 9. GI prophylaxis with Protonix, DVT prophylaxis with subcu heparin, SCDs. 10. Discontinue Tripp catheter. 11. Consult social work for discharge planning possible inpatient rehab versus subacute rehab placement. 12. More recommendations to follow based on patient's clinical course.
--- NOTE | 2018-12-15 10:41 | P.PN ---
Subjective Progress Note Date: 12/15/18 On 12/15/2018, the patient's postop day #2. Doing extremely well. Chest is a been removed. Chest x-ray shows improvement in the bilateral pulmonary infiltrates which is probably a representation of interstitial edema. He is sitting up on a recliner within normal sinus cardiac rhythm. He is on nasal cannula at 3 L with pulse ox of 95%. No respiratory distress. Sternum stable clean and intact. Cardiac rhythm is sinus. His communicating. Following commands and answering questions. The [place] catheter has been removed. The patient is using the incentive spirometer. Is pulling approximately 1250. All of the chest tubes have been removed. No issues with pain. Remains on bronchodilators. Remains on systemic steroids. Remains on insulin drip for blood sugar control. Noted the patient had no antibiotic treatment after discussing this over with CT surgery. The renal function remains stable with a creatinine of 1.2. Hemoglobin stable at 7.5. Objective - Vital Signs Vital signs: Vital Signs Temp 97.6 F 12/15/18 08:00 Pulse 94 12/15/18 10:00 Resp 15 12/15/18 10:00 BP 134/78 12/15/18 10:00 Pulse Ox 95 12/15/18 10:00 Intake & Output 12/14/18 12/15/18 12/15/18 18:59 06:59 18:59 Intake Total 1836.990 909.999 312.767 Output Total 1123 905 Balance 713.990 4.999 312.767 Weight 99.4 kg Intake: IV 584 312 101 0.9NS Pressure Bag 81 72 21 ACETAMINOPHEN IV (For NPO 100 ) 1,000 mg In Empty Bag 1 bag @ 400 mls/hr IVPB Q6HR [facility] Rx#:[id number] Cardiac Output 30 Lactated Ringers 370 240 80 Nitroglycerin-D5w Pmx 50 3 mg In Dextrose/Water 1 250ml.bag @ 5 MCG/MIN 1.5 mls/hr IV .Q24H [facility] Rx#: [id number] Intake, IV Titration 652.990 47.999 11.767 Amount Albumin Human 5% 250 ml 500 In Empty Bag 1 bag @ 250 mls/hr IVPB Q1HR [facility] Rx#: [id number] Clevidipine Butyrate 25 49.8 mg In Empty Bag 1 bag @ 1 MG/HR 2 mls/hr IV .Q24H [facility] Rx#:[id number] Dexmedetomidine/0.9% NaCl 25.303 (Pmx) 400 mcg In Empty Bag 1 bag @ Titrate IV . Q0M [facility] Rx#:[id number] Insulin Regular 100 unit 42.120 47.999 11.767 In Sodium Chloride 0.9% 100 ml @ Per Protocol IV .Q0M [facility] Rx#:[id number] Nitroglycerin-D5w Pmx 50 35.767 mg In Dextrose/Water 1 250ml.bag @ 5 MCG/MIN 1.5 mls/hr IV .Q24H [facility] Rx#: [id number] Oral 600 550 200 Output: Chest Tube Drainage 280 Left and Right Pleural 210 chest tube Mediastinal Chest tube 70 Urine 843 905 Other: Voiding Method Indwelling Catheter Indwelling Catheter # Voids 0 ABP, PAP, CO, CI - Last Documented Arterial Blood Pressure 175/61 Pulmonary Artery Pressure 44/17 Cardiac Output 7.6 Cardiac Index 3.5 - Exam Gen. appearance, the patient is extubated on 3 L of oxygen by nasal cannula. Sitting up on a recliner. 9 acute distress. Answering questions appropriately. Head exam was generally normal. There was no scleral icterus or corneal arcus. Mucous membranes were moist. Neck was supple and without jugular venous distension, thyromegaly, or carotid bruits. Carotids were easily palpable bilaterally. There was no adenopathy. The patient has a right IJ [place]Colin catheter in the cordis is in place. Lungs sounds are diminished bilaterally and scattered rhonchi. Otherwise no major wheezing. The sternum is stable clean and intact and the patient has the chest tubes removed Cardiac exam revealed the PMI to be normally situated and sized. The rhythm was regular and no extrasystoles were noted during several minutes of auscultation. The first and second heart sounds were normal and physiologic splitting of the second heart sound was noted. There were no murmurs, rubs, clicks, or gallops. Abdominal exam revealed normal bowel sounds. The abdomen was soft, non-tender, and without masses, organomegaly, or appreciable enlargement of the abdominal aorta. Examination of the extremities revealed easily palpable radial, femoral and pedal pulses. There was no cyanosis, clubbing or edema. Examination of the skin revealed no evidence of significant rashes, suspicious appearing nevi or other concerning lesions. Neurologically alert and awake 3 and there is no focal neurological deficits. - Labs CBC & Chem 7: 12/15/18 05:00 12/15/18 05:00 Labs: Abnormal Lab Results - Last 24 Hours (Table) 12/12/18 12/14/18 12/14/18 Range/Units 10:55 11:18 12:17 WBC (3.8-10.6) k/uL RBC (4.30-5.90) m/uL Hgb (13.0-17.5) gm/dL Hct (39.0-53.0) % Neutrophils # (1.3-7.7) k/uL Lymphocytes # (1.0-4.8) k/uL BUN (9-20) mg/dL Glucose (74-99) mg/dL POC Glucose (mg/dL) 166 H 170 H (75-99) mg/dL Calcium (8.4-10.2) mg/dL Magnesium (1.6-2.3) mg/dL AST (17-59) U/L Total Protein (6.3-8.2) g/dL Albumin (3.5-5.0) g/dL Crossmatch See Detail 12/14/18 12/14/18 12/14/18 Range/Units 12:18 13:15 14:18 WBC (3.8-10.6) k/uL RBC (4.30-5.90) m/uL Hgb (13.0-17.5) gm/dL Hct (39.0-53.0) % Neutrophils # (1.3-7.7) k/uL Lymphocytes # (1.0-4.8) k/uL BUN (9-20) mg/dL Glucose (74-99) mg/dL POC Glucose (mg/dL) 169 H 197 H 233 H (75-99) mg/dL Calcium (8.4-10.2) mg/dL Magnesium (1.6-2.3) mg/dL AST (17-59) U/L Total Protein (6.3-8.2) g/dL Albumin (3.5-5.0) g/dL Crossmatch 12/14/18 12/14/18 12/14/18 Range/Units 15:59 17:42 18:54 WBC (3.8-10.6) k/uL RBC (4.30-5.90) m/uL Hgb (13.0-17.5) gm/dL Hct (39.0-53.0) % Neutrophils # (1.3-7.7) k/uL Lymphocytes # (1.0-4.8) k/uL BUN (9-20) mg/dL Glucose (74-99) mg/dL POC Glucose (mg/dL) 218 H 119 H 168 H (75-99) mg/dL Calcium (8.4-10.2) mg/dL Magnesium (1.6-2.3) mg/dL AST (17-59) U/L Total Protein (6.3-8.2) g/dL Albumin (3.5-5.0) g/dL Crossmatch 12/14/18 12/14/18 12/14/18 Range/Units 19:58 21:01 22:12 WBC (3.8-10.6) k/uL RBC (4.30-5.90) m/uL Hgb (13.0-17.5) gm/dL Hct (39.0-53.0) % Neutrophils # (1.3-7.7) k/uL Lymphocytes # (1.0-4.8) k/uL BUN (9-20) mg/dL Glucose (74-99) mg/dL POC Glucose (mg/dL) 222 H 206 H 140 H (75-99) mg/dL Calcium (8.4-10.2) mg/dL Magnesium (1.6-2.3) mg/dL AST (17-59) U/L Total Protein (6.3-8.2) g/dL Albumin (3.5-5.0) g/dL Crossmatch 12/14/18 12/15/18 12/15/18 Range/Units 22:56 00:05 01:01 WBC (3.8-10.6) k/uL RBC (4.30-5.90) m/uL Hgb (13.0-17.5) gm/dL Hct (39.0-53.0) % Neutrophils # (1.3-7.7) k/uL Lymphocytes # (1.0-4.8) k/uL BUN (9-20) mg/dL Glucose (74-99) mg/dL POC Glucose (mg/dL) 112 H 162 H 169 H (75-99) mg/dL Calcium (8.4-10.2) mg/dL Magnesium (1.6-2.3) mg/dL AST (17-59) U/L Total Protein (6.3-8.2) g/dL Albumin (3.5-5.0) g/dL Crossmatch 12/15/18 12/15/18 12/15/18 Range/Units 01:58 03:05 04:00 WBC (3.8-10.6) k/uL RBC (4.30-5.90) m/uL Hgb (13.0-17.5) gm/dL Hct (39.0-53.0) % Neutrophils # (1.3-7.7) k/uL Lymphocytes # (1.0-4.8) k/uL BUN (9-20) mg/dL Glucose (74-99) mg/dL POC Glucose (mg/dL) 131 H 197 H 200 H (75-99) mg/dL Calcium (8.4-10.2) mg/dL Magnesium (1.6-2.3) mg/dL AST (17-59) U/L Total Protein (6.3-8.2) g/dL Albumin (3.5-5.0) g/dL Crossmatch 12/15/18 12/15/18 12/15/18 Range/Units 04:55 04:56 05:00 WBC (3.8-10.6) k/uL RBC (4.30-5.90) m/uL Hgb (13.0-17.5) gm/dL Hct (39.0-53.0) % Neutrophils # (1.3-7.7) k/uL Lymphocytes # (1.0-4.8) k/uL BUN 50 H (9-20) mg/dL Glucose 194 H (74-99) mg/dL POC Glucose (mg/dL) 72 L 226 H (75-99) mg/dL Calcium 7.8 L (8.4-10.2) mg/dL Magnesium 2.7 H (1.6-2.3) mg/dL AST 74 H (17-59) U/L Total Protein 5.2 L (6.3-8.2) g/dL Albumin 3.0 L (3.5-5.0) g/dL Crossmatch 12/15/18 12/15/18 12/15/18 Range/Units 05:00 05:59 07:04 WBC 16.8 H (3.8-10.6) k/uL RBC 2.51 L (4.30-5.90) m/uL Hgb 7.5 L (13.0-17.5) gm/dL Hct 23.0 L (39.0-53.0) % Neutrophils # 16.0 H (1.3-7.7) k/uL Lymphocytes # 0.4 L (1.0-4.8) k/uL BUN (9-20) mg/dL Glucose (74-99) mg/dL POC Glucose (mg/dL) 212 H 140 H (75-99) mg/dL Calcium (8.4-10.2) mg/dL Magnesium (1.6-2.3) mg/dL AST (17-59) U/L Total Protein (6.3-8.2) g/dL Albumin (3.5-5.0) g/dL Crossmatch 12/15/18 12/15/18 Range/Units 08:15 08:56 WBC (3.8-10.6) k/uL RBC (4.30-5.90) m/uL Hgb (13.0-17.5) gm/dL Hct (39.0-53.0) % Neutrophils # (1.3-7.7) k/uL Lymphocytes # (1.0-4.8) k/uL BUN (9-20) mg/dL Glucose (74-99) mg/dL POC Glucose (mg/dL) 172 H 177 H (75-99) mg/dL Calcium (8.4-10.2) mg/dL Magnesium (1.6-2.3) mg/dL AST (17-59) U/L Total Protein (6.3-8.2) g/dL Albumin (3.5-5.0) g/dL Crossmatch Assessment and Plan Plan: Assessment: #1. Coronary artery disease status post off pump coronary artery bypass surgery with 4 vessel bypass including a FLORES to LAD and saphenous finger graft to PDA circumflex branch. She is postop day #2. Hemodynamically stable. Chest x-ray still showing bilateral pulmonary infiltrates which are probably interstitial edema as the patient infiltration preoperatively. Responded nicely to diuretics and the patient is stable on 3 L of oxygen nasal cannula. Sternum stable clean and intact. Chest tubes have been removed. #2. Post thoracotomy ventilator support. The patient was extubated without any major difficulties #3. CHF with an impaired preop ejection fraction of 30-35%. #4. History of Hypertension #5. Hypothyroid #6. Diabetes mellitus type 2 muscle on insulin drip for blood sugar control #7. chronic obstructive pulmonary disease, and bedside spirometry is poor with an FEV1 of less than 30% of predicted. The patient is on IV Solu-Medrol #8. Nicotine dependence, patient carries over 50 years of smoking history of less then a pack a day #9 mild leukocytosis Plan The patient is doing very well. He extubated without any major difficulties. The patient is currently off BiPAP. Continue DuoNeb. Continue incentive spirometer. This continued IV Solu Medrol and put the patient on low-dose prednisone. No need for diuretics today. Wean off insulin drip as the patient is currently off the systemic steroids. Doing well. He needs to ambulate. We' ll continue to follow.
[2018-12-15 12:06] LABS: Glucose,Whole Blood 219 mg/dL (75-99)
[2018-12-15] MEDS: INSULN ASP PRT/INSULIN ASPART 100 UNIT/ML 10 ML VIAL SQ SCH (12:32)
[2018-12-15] MEDS: INSULIN ASPART 100 UNIT/ML 1 ML 10 ML VIAL SQ SCH ×3 (12:33→21:03)
[2018-12-15] MEDS ORDERED: TAMSULOSIN 0.4 MG CAP.ER.24H PO STA (12:49)
[2018-12-15] MEDS: METOPROLOL TARTRATE 25 MG TAB PO SCH (15:55)
--- NOTE | 2018-12-15 16:10 | P.PN ---
Subjective Progress Note Date: 12/15/18 Principal diagnosis: Acute coronary syndrome This is a pleasant 68-year-old gentleman who was admitted to the hospital with chest discomfort and ruled in for acute non-ST patient myocardial infarction. 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 Giving his anatomy, coronary artery bypass grafting was advised. The patient underwent CABG 4. He underwent FLORES to LAD and diagonal and SVG to PDA and PLV. On follow-up with him today, 12/17/2018, he is doing slightly better than yesterday. He is not as lethargic as yesterday. He is a slightly tachycardic and the dose of metoprolol was increased earlier today. He continues to be on dual antiplatelet therapy along with a statin. He has been maintaining normal sinus mechanism. The chest x-ray from today today showed better. Objective - Vital Signs Vital signs: Vital Signs Temp 97.6 F 12/15/18 08:00 Pulse 87 12/15/18 15:36 Resp 15 12/15/18 10:00 BP 134/78 12/15/18 10:00 Pulse Ox 95 12/15/18 10:00 Intake & Output 12/14/18 12/15/18 12/15/18 18:59 06:59 18:59 Intake Total 1836.990 909.999 312.767 Output Total 1123 905 Balance 713.990 4.999 312.767 Weight 99.4 kg Intake: IV 584 312 101 0.9NS Pressure Bag 81 72 21 ACETAMINOPHEN IV (For NPO 100 ) 1,000 mg In Empty Bag 1 bag @ 400 mls/hr IVPB Q6HR [facility] Rx#:[id number] Cardiac Output 30 Lactated Ringers 370 240 80 Nitroglycerin-D5w Pmx 50 3 mg In Dextrose/Water 1 250ml.bag @ 5 MCG/MIN 1.5 mls/hr IV .Q24H [facility] Rx#: [id number] Intake, IV Titration 652.990 47.999 11.767 Amount Albumin Human 5% 250 ml 500 In Empty Bag 1 bag @ 250 mls/hr IVPB Q1HR [facility]N Rx#: [id number] Clevidipine Butyrate 25 49.8 mg In Empty Bag 1 bag @ 1 MG/HR 2 mls/hr IV .Q24H [facility] Rx#:[id number] Dexmedetomidine/0.9% NaCl 25.303 (Pmx) 400 mcg In Empty Bag 1 bag @ Titrate IV . Q0M [facility] Rx#:[id number] Insulin Regular 100 unit 42.120 47.999 11.767 In Sodium Chloride 0.9% 100 ml @ Per Protocol IV .Q0M [facility] Rx#:[id number] Nitroglycerin-D5w Pmx 50 35.767 mg In Dextrose/Water 1 250ml.bag @ 5 MCG/MIN 1.5 mls/hr IV .Q24H [facility] Rx#: [id number] Oral 600 550 200 Output: Chest Tube Drainage 280 Left and Right Pleural 210 chest tube Mediastinal Chest tube 70 Urine 843 905 Other: Voiding Method Indwelling Catheter Indwelling Catheter # Voids 0 ABP, PAP, CO, CI - Last Documented Arterial Blood Pressure 175/61 Pulmonary Artery Pressure 44/17 Cardiac Output 7.6 Cardiac Index 3.5 - Constitutional General appearance: Present: no acute distress - Respiratory Respiratory: bilateral: diminished - Cardiovascular Rhythm: regular - Labs CBC & Chem 7: 12/15/18 05:00 12/15/18 05:00 Labs: Abnormal Lab Results - Last 24 Hours (Table) 12/12/18 12/14/18 12/14/18 Range/Units 10:55 17:42 18:54 WBC (3.8-10.6) k/uL RBC (4.30-5.90) m/uL Hgb (13.0-17.5) gm/dL Hct (39.0-53.0) % Neutrophils # (1.3-7.7) k/uL Lymphocytes # (1.0-4.8) k/uL BUN (9-20) mg/dL Glucose (74-99) mg/dL POC Glucose (mg/dL) 119 H 168 H (75-99) mg/dL Calcium (8.4-10.2) mg/dL Magnesium (1.6-2.3) mg/dL AST (17-59) U/L Total Protein (6.3-8.2) g/dL Albumin (3.5-5.0) g/dL Crossmatch See Detail 12/14/18 12/14/18 12/14/18 Range/Units 19:58 21:01 22:12 WBC (3.8-10.6) k/uL RBC (4.30-5.90) m/uL Hgb (13.0-17.5) gm/dL Hct (39.0-53.0) % Neutrophils # (1.3-7.7) k/uL Lymphocytes # (1.0-4.8) k/uL BUN (9-20) mg/dL Glucose (74-99) mg/dL POC Glucose (mg/dL) 222 H 206 H 140 H (75-99) mg/dL Calcium (8.4-10.2) mg/dL Magnesium (1.6-2.3) mg/dL AST (17-59) U/L Total Protein (6.3-8.2) g/dL Albumin (3.5-5.0) g/dL Crossmatch 12/14/18 12/15/18 12/15/18 Range/Units 22:56 00:05 01:01 WBC (3.8-10.6) k/uL RBC (4.30-5.90) m/uL Hgb (13.0-17.5) gm/dL Hct (39.0-53.0) % Neutrophils # (1.3-7.7) k/uL Lymphocytes # (1.0-4.8) k/uL BUN (9-20) mg/dL Glucose (74-99) mg/dL POC Glucose (mg/dL) 112 H 162 H 169 H (75-99) mg/dL Calcium (8.4-10.2) mg/dL Magnesium (1.6-2.3) mg/dL AST (17-59) U/L Total Protein (6.3-8.2) g/dL Albumin (3.5-5.0) g/dL Crossmatch 12/15/18 12/15/18 12/15/18 Range/Units 01:58 03:05 04:00 WBC (3.8-10.6) k/uL RBC (4.30-5.90) m/uL Hgb (13.0-17.5) gm/dL Hct (39.0-53.0) % Neutrophils # (1.3-7.7) k/uL Lymphocytes # (1.0-4.8) k/uL BUN (9-20) mg/dL Glucose (74-99) mg/dL POC Glucose (mg/dL) 131 H 197 H 200 H (75-99) mg/dL Calcium (8.4-10.2) mg/dL Magnesium (1.6-2.3) mg/dL AST (17-59) U/L Total Protein (6.3-8.2) g/dL Albumin (3.5-5.0) g/dL Crossmatch 12/15/18 12/15/18 12/15/18 Range/Units 04:55 04:56 05:00 WBC (3.8-10.6) k/uL RBC (4.30-5.90) m/uL Hgb (13.0-17.5) gm/dL Hct (39.0-53.0) % Neutrophils # (1.3-7.7) k/uL Lymphocytes # (1.0-4.8) k/uL BUN 50 H (9-20) mg/dL Glucose 194 H (74-99) mg/dL POC Glucose (mg/dL) 72 L 226 H (75-99) mg/dL Calcium 7.8 L (8.4-10.2) mg/dL Magnesium 2.7 H (1.6-2.3) mg/dL AST 74 H (17-59) U/L Total Protein 5.2 L (6.3-8.2) g/dL Albumin 3.0 L (3.5-5.0) g/dL Crossmatch 12/15/18 12/15/18 12/15/18 Range/Units 05:00 05:59 07:04 WBC 16.8 H (3.8-10.6) k/uL RBC 2.51 L (4.30-5.90) m/uL Hgb 7.5 L (13.0-17.5) gm/dL Hct 23.0 L (39.0-53.0) % Neutrophils # 16.0 H (1.3-7.7) k/uL Lymphocytes # 0.4 L (1.0-4.8) k/uL BUN (9-20) mg/dL Glucose (74-99) mg/dL POC Glucose (mg/dL) 212 H 140 H (75-99) mg/dL Calcium (8.4-10.2) mg/dL Magnesium (1.6-2.3) mg/dL AST (17-59) U/L Total Protein (6.3-8.2) g/dL Albumin (3.5-5.0) g/dL Crossmatch 12/15/18 12/15/18 12/15/18 Range/Units 08:15 08:56 11:53 WBC (3.8-10.6) k/uL RBC (4.30-5.90) m/uL Hgb (13.0-17.5) gm/dL Hct (39.0-53.0) % Neutrophils # (1.3-7.7) k/uL Lymphocytes # (1.0-4.8) k/uL BUN (9-20) mg/dL Glucose (74-99) mg/dL POC Glucose (mg/dL) 172 H 177 H 219 H (75-99) mg/dL Calcium (8.4-10.2) mg/dL Magnesium (1.6-2.3) mg/dL AST (17-59) U/L Total Protein (6.3-8.2) g/dL Albumin (3.5-5.0) g/dL Crossmatch Assessment and Plan Assessment: Assessment #1 acute coronary event #2 status post CABG as described above #3 multiple comorbid conditions Plan #1 the patient is on dual antiplatelet therapy will continue that #2 the hemoglobin as well as a creatinine seems to be stable #3 the dose of metoprolol was increased earlier today to 25 mg by mouth twice a day #4 follow-up with the patient
--- NOTE | 2018-12-15 17:02 | PN ---
PROGRESS NOTE DATE OF SERVICE: 12/15/2018 This 62-year-old gentleman was admitted with myocardial infarction, CAD/CABG is also being closely monitored. Patient pressure is elevated. Patient is no chest pain. No palpitations. No fever. The most recent chest x-ray done today shows some increased vascular markings. PHYSICAL EXAM: Alert and oriented times three. Pulse is 94, blood pressure 134/70, respiration 15, temperature is normal. Pulse ox 94% on 3 L. HEENT: Conjunctivae normal. NECK: No jugular venous distention. CARDIOVASCULAR: S1, S2 muffled. RESPIRATORY: Breath sounds diminished in the bases. Few scattered rhonchi and crackles. ABDOMEN: Soft. Nontender. NERVOUS SYSTEM: No focal deficits. LABS: Accu-Cheks 172, 177, 219, WBC 16.8. Hemoglobin 7.5. ASSESSMENT: 1. Coronary artery disease status post coronary artery bypass grafting x4. 2. History of recent acute non ST segment elevation myocardial infarction. 3. Acute hypoxic respiratory failure secondary to acute systolic congestive on presentation. 4. Diabetes mellitus type 2 on insulin drip. 5. Chronic obstructive pulmonary disease with FEV1 less than 30%. 6. Acute renal failure, prerenal azotemia secondary to congestive heart failure, present on admission. 7. Elevated AST/ALT. 8. Chronic kidney disease, diabetic nephropathy. 9. Diabetes mellitus type 2. 10.Hypertension. 11.Hyperlipidemia. 12.Hypothyroidism. 13.PTSD bipolar. 14.History of nicotine dependence. 15.History of right lacunar infarct on the old CT scan. RECOMMENDATIONS AND DISCUSSION: Recommend to continue current medications, management and symptomatic treatment. Continue the DVT prophylaxis. I would recommend transition to 3 shot protocol and continue to monitor. We will monitor the blood sugars closely. Further recommendations to follow. Stop the insulin drip. Advance and encourage diet. Further recommendations to follow. MMODL / IJN: [id number] / MTDD
[2018-12-15 17:09] LABS: Glucose,Whole Blood 148 mg/dL (75-99)
[2018-12-15] MEDS ORDERED: INSULIN ASPART 100 UNIT/ML 1 ML 10 ML VIAL SQ SCH (17:30)
[2018-12-15 20:59] LABS: Glucose,Whole Blood 122 mg/dL (75-99)
[2018-12-15] MEDS ORDERED: INSULIN NPH 300 UNIT/3 ML VIAL SQ SCH (21:00)
[2018-12-15] MEDS: SENNOSIDES-DOCUSATE SODIUM 1 EACH TAB PO SCH (21:05)
[2018-12-16] MEDS: HEPARIN SODIUM,PORCINE 5,000 UNIT/ML 1 ML VIAL SQ SCH ×3 (01:36→17:52)
[2018-12-16] MEDS: METOPROLOL TARTRATE 25 MG TAB PO SCH (01:36)
[2018-12-16 02:10] LABS: Glucose,Whole Blood 141 mg/dL (75-99)
[2018-12-16] MEDS: INSULIN ASPART 100 UNIT/ML 1 ML 10 ML VIAL SQ SCH ×5 (02:15→22:10)
[2018-12-16 05:05] LABS: Basophils % (A) 0 %; Eosinophils % (A) 0 %; HCT 23.6 % (39.0-53.0); HGB 7.6 gm/dL (13.0-17.5); Lymphocytes % (A) 5 %; MCH 29.3 pg (25.0-35.0); MCHC 32.2 g/dL (31.0-37.0); MCV 91.1 fL (80.0-100.0); Mean Platelet Volume 7.2; Monocytes # (A) 0.7 k/uL (0-1.0); Monocytes % (A) 4 %; Neutrophils # (A) 16.6 k/uL (1.3-7.7); Neutrophils % (A) 90 %; Platelet Count 304 k/uL (150-450); RDW 13.4 % (11.5-15.5); WBC 18.5 k/uL (3.8-10.6)
[2018-12-16 05:18] LABS: Calcium 8.3 mg/dL (8.4-10.2); Magnesium 2.7 mg/dL (1.6-2.3); Potassium 4.5 mmol/L (3.5-5.1); Total Bilirubin 0.7 mg/dL (0.2-1.3); Total Protein 5.5 g/dL (6.3-8.2)
--- NOTE | 2018-12-16 06:36 | P.CONS ---
History of Present Illness - Chief Complaint Cardiac debility - History of Present Illness I had the opportunity see patient for inpatient rehab consultation with regard to cardiac debility. He was admitted to [facility] December 06 with shortness of breath and non-STEMI. Seen in consultation by cardiology. Chest x-rays followed for CHF. CT noted CHF and effusions. Patient did undergo heart operation December 09. PT reports two-person total assistance for bed mobility and maximal assistance to transfer and stand. OT prescribed. Previous functional history as elicited from patient: 62 section left-handed white male who is single lives in trailer home with girlfriend. Girlfriend does cooking, laundry, driving. Patient retired. Describes independent with standing shower and gait without device. History smoking but doesn't smoke or drink currently. Dr. Pruitt is regular doctor. Review of Systems Review of systems: ENT: Denies sneezes or discharge. Eyes: Denies discharge or photophobia. Cardiac: Some sternal discomfort. Pulmonary: At least mild shortness of breath. Gastrointestinal: Denies nausea, emesis, constipation, diarrhea. Genitourinary: Denies discharge or frequency. Musculoskeletal: Denies muscle or bone aches. Neurologic: Denies motor or sensory change. Endocrine: Denies shakes or sweats. Oncology: Denies cancers. Dermatologic: Denies rash, itching, pruritus. ALLERGY/immunology: Denies sneezes, rashes. Past Medical History Past Medical History: Coronary Artery Disease (CAD), Heart Failure, CVA/TIA, Diabetes Mellitus, Hyperlipidemia, Hypertension, Myocardial Infarction (NM), Syncope, Thyroid Disorder Additional Past Medical History / Comment(s): CT of the brain in September 2017 demonstrated old right lacunar infarct History of Any Multi-Drug Resistant Organisms: None Reported Past Surgical History: Orthopedic Surgery Additional Past Surgical History / Comment(s): right hip, Past Anesthesia/Blood Transfusion Reactions: No Reported Reaction Past Psychological History: Bipolar, PTSD Smoking Status: Current every day smoker Past Alcohol Use History: None Reported Past Drug Use History: None Reported Medications and Allergies Home Medications Medication Instructions Recorded Confirmed Type Loratadine [Claritin] 10 mg PO DAILY 12/15/15 12/06/18 History fluvoxaMINE [Luvox] 50 mg PO DAILY 10/13/17 12/06/18 History Lisinopril [Zestril] 5 mg PO DAILY #0 10/14/17 12/06/18 Rx Insulin Degludec [Tresiba 25 unit SQ HS 12/06/18 12/06/18 History Flextouch U-100] Insulin Lispro [Admelog] See Protocol SQ AC-TID 12/06/18 12/06/18 History Levothyroxine Sodium [Synthroid] 75 mcg PO DAILY 12/06/18 12/06/18 History Allergies Allergy/AdvReac Type Severity Reaction Status Date / Time No Known Allergies Allergy Verified 12/06/18 21:41 Physical Exam Vitals: Vital Signs Temp Pulse Resp BP Pulse Ox 12/16/18 06:00 84 25 H 130/70 92 L 12/16/18 05:00 82 26 H 125/74 92 L 12/16/18 04:00 98.1 F 78 19 133/69 96 12/16/18 03:00 79 17 129/73 96 12/16/18 02:00 86 14 123/71 96 12/16/18 01:00 86 12 138/68 92 L 12/16/18 00:00 98.2 F 88 16 143/75 93 L 12/15/18 23:00 85 12 134/69 95 12/15/18 22:00 87 14 132/66 94 L 12/15/18 21:00 87 12 141/68 96 12/15/18 20:00 98.1 F 92 24 127/78 92 L 12/15/18 19:22 86 12/15/18 19:12 84 12/15/18 19:00 87 10 L 120/63 93 L 12/15/18 18:30 83 21 93/82 96 12/15/18 18:00 82 13 121/60 96 12/15/18 17:30 83 15 118/65 95 12/15/18 17:00 84 22 121/60 96 12/15/18 16:30 90 25 H 131/58 95 12/15/18 16:00 98.1 F 93 27 H 139/66 94 L 12/15/18 15:36 87 12/15/18 15:30 85 21 123/60 100 12/15/18 15:27 84 12/15/18 15:00 86 27 H 130/61 95 12/15/18 14:30 87 16 130/80 97 12/15/18 14:00 94 31 H 125/66 97 12/15/18 13:30 88 15 132/64 94 L 12/15/18 13:00 88 13 124/68 95 12/15/18 12:30 90 35 H 141/72 91 L 12/15/18 12:00 98.2 F 87 11 L 94 L 12/15/18 11:30 85 28 H 139/68 95 12/15/18 11:27 82 12/15/18 11:09 85 12/15/18 11:00 87 17 151/72 96 12/15/18 10:30 94 17 145/68 93 L 12/15/18 10:00 94 15 134/78 95 12/15/18 09:30 95 28 H 152/78 96 12/15/18 09:00 95 34 H 146/82 93 L 12/15/18 08:30 98 29 H 151/76 94 L 12/15/18 08:20 90 12/15/18 08:08 93 96 12/15/18 08:00 97.6 F 95 14 143/77 94 L 12/15/18 07:30 93 16 143/82 94 L 12/15/18 07:00 91 10 L 93 L Intake and Output 12/15/18 12/15/18 12/16/18 14:59 22:59 06:59 Intake Total 912.767 Output Total 317 405 415 Balance 595.767 -405 -415 Intake: IV 101 0.9NS Pressure Bag 21 Lactated Ringers 80 Intake, IV Titration 11.767 Amount Insulin Regular 100 unit 11.767 In Sodium Chloride 0.9% 100 ml @ Per Protocol IV .Q0M [facility] Rx#:[id number] Oral 800 Output: Urine 317 405 415 Other: Voiding Method Indwelling Catheter # Voids 1 Weight 100.6 kg ABP, PAP, CO, CI - Last 8 Hours Cardiac Output 7.6 Cardiac Output 7.6 Cardiac Output 7.6 Cardiac Output 7.6 Cardiac Output 7.6 Cardiac Output 7.6 Cardiac Output 7.6 Cardiac Output 7.6 Skin: Good color, texture, turgor. General: Medium build and comfortable appearance. Head: Normocephalic, atraumatic. Eyes: Symmetric. Pupils equal round. Ears: Symmetric. Hearing within normal limits. Mouth: Clear. Neck: Supple. Carotid without bruit. Cardiac: Regular rate and rhythm. Sternal clean and dressed. Wearing harness. Lungs: Clear anteriorly and posteriorly. Abdomen: Soft active nontender. Extremities: Normal tone. Neurological: Mental status: Alert, cooperative, pleasant. Cranial nerves: Symmetric facial tone and trapezius. Motor: Normal strength and isolation all 4 limbs. Sensation: Intact throughout. DTRs: Symmetric and equal throughout. Mobility: Requires physical assistance for bed mobility. Results CBC & Chem 7: 12/16/18 04:48 12/16/18 04:48 Labs: Abnormal Lab Results - Last 24 Hours (Table) 12/15/18 12/15/18 12/15/18 Range/Units 07:04 08:15 08:56 WBC (3.8-10.6) k/uL RBC (4.30-5.90) m/uL Hgb (13.0-17.5) gm/dL Hct (39.0-53.0) % Neutrophils # (1.3-7.7) k/uL Chloride (98-107) mmol/L BUN (9-20) mg/dL Glucose (74-99) mg/dL POC Glucose (mg/dL) 140 H 172 H 177 H (75-99) mg/dL Calcium (8.4-10.2) mg/dL Magnesium (1.6-2.3) mg/dL Total Protein (6.3-8.2) g/dL Albumin (3.5-5.0) g/dL 12/15/18 12/15/18 12/15/18 Range/Units 11:53 17:06 20:56 WBC (3.8-10.6) k/uL RBC (4.30-5.90) m/uL Hgb (13.0-17.5) gm/dL Hct (39.0-53.0) % Neutrophils # (1.3-7.7) k/uL Chloride (98-107) mmol/L BUN (9-20) mg/dL Glucose (74-99) mg/dL POC Glucose (mg/dL) 219 H 148 H 122 H (75-99) mg/dL Calcium (8.4-10.2) mg/dL Magnesium (1.6-2.3) mg/dL Total Protein (6.3-8.2) g/dL Albumin (3.5-5.0) g/dL 12/16/18 12/16/18 12/16/18 Range/Units 02:07 04:48 04:48 WBC 18.5 H (3.8-10.6) k/uL RBC 2.60 L (4.30-5.90) m/uL Hgb 7.6 L (13.0-17.5) gm/dL Hct 23.6 L (39.0-53.0) % Neutrophils # 16.6 H (1.3-7.7) k/uL Chloride 108 H (98-107) mmol/L BUN 47 H (9-20) mg/dL Glucose 70 L (74-99) mg/dL POC Glucose (mg/dL) 141 H (75-99) mg/dL Calcium 8.3 L (8.4-10.2) mg/dL Magnesium 2.7 H (1.6-2.3) mg/dL Total Protein 5.5 L (6.3-8.2) g/dL Albumin 3.0 L (3.5-5.0) g/dL Assessment and Plan (1) Acute respiratory failure with hypoxia Current Visit: Yes Status: Acute Code(s): J96.01 - ACUTE RESPIRATORY FAILURE WITH HYPOXIA SNOMED Code(s): 64059871 (2) Acute systolic heart failure Current Visit: Yes Status: Acute Code(s): I50.21 - ACUTE SYSTOLIC ( CONGESTIVE) HEART FAILURE SNOMED Code(s): 819737773 Plan: Impression: 1. Cardiac debility. 2. Non-STEMI. Status post coronary bypass. 3. Acute systolic heart failure. 4. COPD. 5. Diabetes. 6. Coronary disease with history of NM. 7. Hypertension. 8. Dyslipidemia. 9. History of stroke. Parkinson plan: At this time PT ongoing and OT prescribed. We'll follow for possible need and benefit of inpatient rehab.
--- NOTE | 2018-12-16 07:20 | XR ---
EXAMINATION TYPE: XR chest 1V portable DATE OF EXAM: 12/16/2018 Comparison: 12/15/2018 Clinical History: 68-year-old male post op CABG Findings: Median sternotomy wires are present with postoperative clips in the mediastinum. Heart remains enlarg ed with patchy and confluent airspace opacities in both lungs. Interval removal of right IJ sheath. R elative upper lung lucency suggest underlying emphysema. Impression: Overall stable findings. Suspect pulmonary edema superimposed on COPD.
[2018-12-16 07:23] LABS: Glucose,Whole Blood 85 mg/dL (75-99)
[2018-12-16] MEDS ORDERED: ACETAMINOPHEN TAB 325 MG TAB PO PRN ×2 (07:39)
[2018-12-16] MEDS: IPRATROPIUM-ALBUTEROL 3 ML NEB INHALATION SCH ×4 (07:53→20:36)
--- NOTE | 2018-12-16 08:14 | P.PN ---
Subjective Progress Note Date: 12/16/18 Principal diagnosis: Acute coronary syndrome This is a pleasant 68-year-old gentleman who was admitted to the hospital with chest discomfort and ruled in for acute non-ST patient myocardial infarction. 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 Giving his anatomy, coronary artery bypass grafting was advised. The patient underwent CABG 4. He underwent FLORES to LAD and diagonal and SVG to PDA and PLV. On follow-up with the patient today, December 162018, he is looking better. Hemodynamically he is stable with a normal heart rate and blood pressure. The dose of metoprolol was increased yesterday to 50 mg by mouth twice a day and the heart rate is definitely better. He continues to be on dual antiplatelet therapy along with a statin. He is also on JOSE M inhibitor with lisinopril. He was seen and evaluated by rehab team. The chest x-ray from today seems to be slightly more weight than yesterday and I do feel that the patient will benefit from some Lasix. Objective - Vital Signs Vital signs: Vital Signs Temp 98.1 F 12/16/18 04:00 Pulse 88 12/16/18 08:01 Resp 25 H 12/16/18 06:00 BP 130/70 12/16/18 06:00 Pulse Ox 92 L 12/16/18 06:00 Intake & Output 12/15/18 12/16/18 12/16/18 18:59 06:59 18:59 Intake Total 912.767 Output Total 542 595 Balance 370.767 -595 Weight 100.6 kg Intake: IV 101 0.9NS Pressure Bag 21 Lactated Ringers 80 Intake, IV Titration 11.767 Amount Insulin Regular 100 unit 11.767 In Sodium Chloride 0.9% 100 ml @ Per Protocol IV .Q0M [facility] Rx#:[id number] Oral 800 Output: Urine 542 595 Other: Voiding Method Indwelling Catheter Indwelling Catheter # Voids 1 ABP, PAP, CO, CI - Last Documented Arterial Blood Pressure 175/61 Pulmonary Artery Pressure 44/17 Cardiac Output 7.6 Cardiac Index 3.5 - Constitutional General appearance: Present: no acute distress - Respiratory Respiratory: bilateral: diminished - Cardiovascular Rhythm: regular - Labs CBC & Chem 7: 12/16/18 04:48 12/16/18 04:48 Labs: Abnormal Lab Results - Last 24 Hours (Table) 12/15/18 12/15/18 12/15/18 Range/Units 08:15 08:56 11:53 WBC (3.8-10.6) k/uL RBC (4.30-5.90) m/uL Hgb (13.0-17.5) gm/dL Hct (39.0-53.0) % Neutrophils # (1.3-7.7) k/uL Chloride (98-107) mmol/L BUN (9-20) mg/dL Glucose (74-99) mg/dL POC Glucose (mg/dL) 172 H 177 H 219 H (75-99) mg/dL Calcium (8.4-10.2) mg/dL Magnesium (1.6-2.3) mg/dL Total Protein (6.3-8.2) g/dL Albumin (3.5-5.0) g/dL 12/15/18 12/15/18 12/16/18 Range/Units 17:06 20:56 02:07 WBC (3.8-10.6) k/uL RBC (4.30-5.90) m/uL Hgb (13.0-17.5) gm/dL Hct (39.0-53.0) % Neutrophils # (1.3-7.7) k/uL Chloride (98-107) mmol/L BUN (9-20) mg/dL Glucose (74-99) mg/dL POC Glucose (mg/dL) 148 H 122 H 141 H (75-99) mg/dL Calcium (8.4-10.2) mg/dL Magnesium (1.6-2.3) mg/dL Total Protein (6.3-8.2) g/dL Albumin (3.5-5.0) g/dL 12/16/18 12/16/18 Range/Units 04:48 04:48 WBC 18.5 H (3.8-10.6) k/uL RBC 2.60 L (4.30-5.90) m/uL Hgb 7.6 L (13.0-17.5) gm/dL Hct 23.6 L (39.0-53.0) % Neutrophils # 16.6 H (1.3-7.7) k/uL Chloride 108 H (98-107) mmol/L BUN 47 H (9-20) mg/dL Glucose 70 L (74-99) mg/dL POC Glucose (mg/dL) (75-99) mg/dL Calcium 8.3 L (8.4-10.2) mg/dL Magnesium 2.7 H (1.6-2.3) mg/dL Total Protein 5.5 L (6.3-8.2) g/dL Albumin 3.0 L (3.5-5.0) g/dL Assessment and Plan Assessment: Assessment #1 acute coronary event #2 status post CABG as described above #3 multiple comorbid conditions Plan #1 the patient is on dual antiplatelet therapy will continue that #2 the hemoglobin as well as a creatinine seems to be stable #3 the patient might benefit from extra dose of Lasix #4 follow-up with the patient
[2018-12-16] MEDS ORDERED: predniSONE 5 MG TAB PO SCH (09:00)
[2018-12-16] MEDS ORDERED: predniSONE 10 MG TAB PO SCH (09:00)
[2018-12-16] MEDS: LEVOTHYROXINE 75 MCG TAB PO SCH (09:23)
[2018-12-16] MEDS: PANTOPRAZOLE 40 MG TABLET PO SCH (09:24)
[2018-12-16] MEDS: INSULN ASP PRT/INSULIN ASPART 100 UNIT/ML 10 ML VIAL SQ SCH (09:24)
[2018-12-16] MEDS: TAMSULOSIN 0.4 MG CAP.ER.24H PO SCH (09:25)
[2018-12-16] MEDS: guaiFENesin 600 MG TABLET.ER PO SCH ×2 (09:25→22:10)
[2018-12-16] MEDS: ATORVASTATIN 40 MG TAB PO SCH (09:25)
[2018-12-16] MEDS: CLOPIDOGREL 75 MG TAB PO SCH (09:25)
[2018-12-16] MEDS: ASPIRIN 325 MG TAB PO SCH (09:25)
[2018-12-16] MEDS: MUPIROCIN 2% OINT 22 GM TUBE NASAL SCH ×2 (09:26→22:22)
[2018-12-16] MEDS: METOPROLOL TARTRATE 50 MG TAB PO SCH ×2 (09:29→22:09)
[2018-12-16] MEDS: FUROSEMIDE 10 MG/ML 4 ML VIAL IV SCH ×2 (09:51→22:09)
--- NOTE | 2018-12-16 11:29 | P.PN ---
Subjective Progress Note Date: 12/16/18 Principal diagnosis: Status post CABG, postoperative day #3 Patient was seen today on 12/16/2018, he is status post off-pump coronary artery bypass surgery with 4 vessel bypass including FLORES to LAD, saphenous vein graft to PDA circumflex branch is postoperative day #3. Patient seems to be doing fairly well, however his O2 saturations are marginal, and a chest x-ray is showing worsening interstitial edema compared to the chest x-ray in the last few days. Urine output is about 30-40 mL per hour, patient has poor LV function , hence after examining examining the patient I recommended Lasix 40 mg IV push every 12 hours. Objective - Vital Signs Vital signs: Vital Signs Temp 98.4 F 12/16/18 08:00 Pulse 93 12/16/18 10:00 Resp 27 H 12/16/18 10:00 BP 128/61 12/16/18 10:00 Pulse Ox 96 12/16/18 10:00 Intake & Output 12/15/18 12/16/18 12/16/18 18:59 06:59 18:59 Intake Total 912.767 357 Output Total 542 595 155 Balance 370.767 -595 202 Weight 100.6 kg Intake: IV 101 0.9NS Pressure Bag 21 Lactated Ringers 80 Intake, IV Titration 11.767 Amount Insulin Regular 100 unit 11.767 In Sodium Chloride 0.9% 100 ml @ Per Protocol IV .Q0M [facility] Rx#:[id number] Oral 800 357 Output: Urine 542 595 155 Other: Voiding Method Indwelling Catheter Indwelling Catheter Indwelling Catheter # Voids 1 ABP, PAP, CO, CI - Last Documented Arterial Blood Pressure 175/61 Pulmonary Artery Pressure 44/17 Cardiac Output 7.6 Cardiac Index 3.5 - Exam Physical Exam: Revealed a 68-year-old white male on nasal cannula, in mild respiratory distress. Head: Atraumatic normocephalic. HEENT:[Neck is supple.] [No neck masses.] [No thyromegaly.] [No JVD.] PERRLA, EOMI, no icterus. Chest: [Diffuse rhonchi and crackles throughout both lungs. Symmetrical chest expansion. No chest wall tenderness. No chest tubes noted..] Cardiac Exam: [Normal S1 and S2, no S3 gallop, 2/6 systolic murmur thought the precordium. Abdomen: [Soft, nontender, no megaly, no rebound, no guarding, normal bowel sounds.] Extremities: [No clubbing, no edema, no cyanosis.] Neurological Exam: [No focal neurologic deficit.] Lymphatics:no Lymphadenopathy Psychiatric: Normal mood, affect and mental status examination. - Labs CBC & Chem 7: 12/16/18 04:48 12/16/18 04:48 Labs: Abnormal Lab Results - Last 24 Hours (Table) 12/15/18 12/15/18 12/15/18 Range/Units 11:53 17:06 20:56 WBC (3.8-10.6) k/uL RBC (4.30-5.90) m/uL Hgb (13.0-17.5) gm/dL Hct (39.0-53.0) % Neutrophils # (1.3-7.7) k/uL Chloride (98-107) mmol/L BUN (9-20) mg/dL Glucose (74-99) mg/dL POC Glucose (mg/dL) 219 H 148 H 122 H (75-99) mg/dL Calcium (8.4-10.2) mg/dL Magnesium (1.6-2.3) mg/dL Total Protein (6.3-8.2) g/dL Albumin (3.5-5.0) g/dL 12/16/18 12/16/18 12/16/18 Range/Units 02:07 04:48 04:48 WBC 18.5 H (3.8-10.6) k/uL RBC 2.60 L (4.30-5.90) m/uL Hgb 7.6 L (13.0-17.5) gm/dL Hct 23.6 L (39.0-53.0) % Neutrophils # 16.6 H (1.3-7.7) k/uL Chloride 108 H (98-107) mmol/L BUN 47 H (9-20) mg/dL Glucose 70 L (74-99) mg/dL POC Glucose (mg/dL) 141 H (75-99) mg/dL Calcium 8.3 L (8.4-10.2) mg/dL Magnesium 2.7 H (1.6-2.3) mg/dL Total Protein 5.5 L (6.3-8.2) g/dL Albumin 3.0 L (3.5-5.0) g/dL Assessment and Plan Assessment: Impression: 1 status post CABG postoperative day #3, off pump coronary artery bypass with four-vessel. 2 severe pulmonary edema secondary to systolic dysfunction and congestive heart failure as noted on the chest x-ray today. And as noted on physical examination. 3 impaired LV function, ejection fraction 30-35%. 4 history of hypertension 5 hypothyroidism 6 type 2 diabetes 7 history of severe COPD FEV1 is no more than 3% at best. 8 nicotine dependence syndrome, 29-blqa-ppcg smoking history. 9 impending respiratory failure secondary to severe pulmonary edema as noted on the chest x-ray and as noted clinically. Hence the patient will need to be diuresed, may even consider dopamine renal perfusion dose considering the patient LV function, patient will need to be placed on Lasix 40 mg IV push every 12 hours, and he was given a dose today. Patient will be kept in the intensive care unit, discussed his condition with cardiac surgery staff, and recommended that he stays in the ICU. Will need to optimize his cardiopulmonary status much better before transferring out of the ICU. Prognosis is definitely guarded. Time with Patient: Less than 30
[2018-12-16 12:24] LABS: Glucose,Whole Blood 58 mg/dL (75-99)
[2018-12-16 12:24] LABS: Glucose,Whole Blood 47 mg/dL (75-99)
[2018-12-16 12:37] LABS: Glucose,Whole Blood 49 mg/dL (75-99)
[2018-12-16 12:53] LABS: Glucose,Whole Blood 61 mg/dL (75-99)
[2018-12-16 12:53] LABS: Glucose,Whole Blood 54 mg/dL (75-99)
[2018-12-16] MEDS ORDERED: DEXTROSE 50%-WATER 50 ML SYRINGE IVP STA ×2 (14:18→14:28)
--- NOTE | 2018-12-16 14:47 | P.PN ---
Subjective Progress Note Date: 12/16/18 Progress note being dictated for Dr. Gifford Interval history:68-year-old admitted secondary to non-ST elevation myocardial infarction acute congestive heart failure secondary to myocardial infarction patient underwent cardiac catheterization found to have two-vessel disease including LAD disease because of which cardiology is recommending coronary artery bypass grafting carotid thoracic surgery was consulted and they're planning on doing CABG and Sunday. Patient still has volume overload patient will be started on 40 IV twice a day of Lasix. Patient is still bit shot of breath requiring 4 L of oxygen via does have some wheezing on exam may be cardiac asthma but it if his oxygen requirements doesn't come down will start him on albuterol and Symbicort at that time. 12/09/2018 Patient is still wheezing quite a bit with rhonchus breath sounds crackles Lasix will be continued daily probably need to switch him to oral Lasix cut down the Lasix tomorrow. Patient was started on systemic steroids by infectious disease is pedal edema improved but still requiring 4 L of oxygen. 12/10/2018 initially scheduled for CABG tomorrow. Postponed secondary to pulmonary status. Remains wheezy with congested cough. Poor FEV1 , less than 30%.maintaining low to mid 90s on 3 L nasal cannula.Maintained on nebulized bronchodilators, Perforomist, Pulmicort, IV steroids, Lasix IV push. 24-hour I &O reflecting a negative fluid balance.Chest x-ray reporting persistent bilateral reticular interstitial edema and/or infiltrates with developing focal bilateral infrahilar alveolar edema. Currently denies chest pain or palpitations. Maintained on heparin drip. Blood sugars controlled on insulin drip. Creatinine 1.31. 12/11/2018 Continues on nebulized bronchodilators, steroids, Lasix, Perforomist , Pulmicort.Pulmonary status unchanged, incentive spirometer less than 1000. Chest x-ray reporting prominent pulmonary vascular markings, improving infiltrate. Chest CT performed reporting fluid overload, small left greater than right pleural effusions, multifocal areas of bilateral mild alveolar edema , possible, possible underlying areas of acute infiltrate. Continues on insulin drip. Denies chest pain, palpitations. Creatinine unchanged. 12/12/2018 sitting up in chair, ambulating in hallway short distances, tolerated exertion well. Telemetry sinus rhythm. Less wheezing today, O2 titrated further down to 2 L, maintaining O2 sats of 96%. Scheduled for tomorrow. Maintained on insulin drip. Creatinine 1.26. Afebrile. 06/15/2019 sitting up in chair, hypoglycemic, blood sugars in the 50s,- asymptomatic. Yesterday have been weaned off insulin drip and converted to 3 shot protocol. Good diet intake, consuming 100% of diet. Incentive spirometer up to 1250, telemetry sinus rhythm, ambulating. Chest x-ray suggestive of pulmonary edema; currently maintaining O2 sats in the 93% on 2 L nasal cannula. Diuresing on scheduled Lasix 40 IV push with 24-hour I&O reflecting a negative fluid balance. Creatinine 1.06. Hemoglobin 7.6. Constitutional: Denied any fatigue denied any fever. Cardio vascular: denied any chest pain, palpitations Gastrointestinal denied any nausea vomiting Pulmonary: As mentioned in the interval history Neurologic denied any new focal deficits Active Medications Acetaminophen (Tylenol Tab) 325 mg PO Q6HR PRN PRN Reason: Pain Scale 1 to 5 Acetaminophen (Tylenol Tab) 650 mg PO Q6HR PRN PRN Reason: Pain Scale 6 to 10 Albuterol/Ipratropium (Duoneb 0.5 Mg-3 Mg/3 Ml Soln) 3 ml INHALATION RT-Q2H PRN PRN Reason: Shortness Of Breath Or Wheezing Albuterol/Ipratropium (Duoneb 0.5 Mg-3 Mg/3 Ml Soln) 3 ml INHALATION RT-QID [facility] Last Admin: 12/16/18 11:47 Dose: 3 ml Aspirin (Aspirin) 325 mg PO DAILY [facility] Last Admin: 12/16/18 09:25 Dose: 325 mg Atorvastatin Calcium (Lipitor) 40 mg PO DAILY [facility] Last Admin: 12/16/18 09:25 Dose: 40 mg Bisacodyl (Dulcolax) 10 mg RECTAL DAILY PRN PRN Reason: Constipation Clopidogrel Bisulfate (Plavix) 75 mg PO DAILY [facility] Last Admin: 12/16/18 09:25 Dose: 75 mg Fluvoxamine Maleate (Luvox) 50 mg PO DAILY [facility] Last Admin: 12/16/18 09:25 Dose: 50 mg Furosemide (Lasix) 40 mg IV Q12HR [facility] Last Admin: 12/16/18 09:51 Dose: 40 mg Guaifenesin (Mucinex) 1,200 mg PO Q12HR [facility] Last Admin: 12/16/18 09:25 Dose: 1,200 mg Heparin Sodium (Porcine) (Heparin) 5,000 unit SQ Q8HR [facility] Last Admin: 12/16/18 09:24 Dose: 5,000 unit Hydralazine HCl (Apresoline) 20 mg IVP Q4HR PRN PRN Reason: Blood Pressure - High Amiodarone HCl 150 mg/ (Dextrose/Water) 103 mls @ 618 mls/hr IV .Q10M PRN; Protocol PRN Reason: Per protocol Amiodarone HCl 450 mg/ (Dextrose/Water) 259 mls @ 34.53 mls/hr IV .Q7H31M PRN; Protocol PRN Reason: Per Protocol Insulin Aspart (Novolog) 0 unit SQ ACHS [facility]; Protocol Insulin Aspart (Novolog) 7 unit SQ AC-TID [facility] Insulin Detemir (Levemir) 20 unit SQ HS [facility] Levothyroxine Sodium (Synthroid) 75 mcg PO DAILY@0630 [facility] Last Admin: 12/16/18 09:23 Dose: 75 mcg Lisinopril (Zestril) 2.5 mg PO 1200 [facility] Magnesium Hydroxide (Milk Of Magnesia) 2,400 mg PO BID PRN PRN Reason: Constipation Metoclopramide HCl (Reglan) 10 mg IVP Q4H PRN PRN Reason: Nausea And Vomiting Metoprolol Tartrate (Lopressor) 50 mg PO BID [facility] Last Admin: 12/16/18 09:29 Dose: 50 mg Miscellaneous Information (Magnesium Per Protocol) 1 each MISCELLANE DAILY PRN ; Protocol PRN Reason: Per Protocol Miscellaneous Information (Phosphorus Per Protocol) 1 each MISCELLANE DAILY PRN ; Protocol PRN Reason: Per Protocol Miscellaneous Information (Potassium Per Protocol) 1 each MISCELLANE DAILY PRN ; Protocol PRN Reason: Per Protocol Mupirocin (Bactroban Oint) 1 applic NASAL BID [facility] Stop: 12/16/18 21:01 Last Admin: 12/16/18 09:26 Dose: 1 applic Ondansetron HCl (Zofran) 4 mg IVP Q6HR PRN PRN Reason: Nausea And Vomiting Pantoprazole Sodium (Protonix) 40 mg PO AC-BRKFST [facility] Last Admin: 12/16/18 09:24 Dose: 40 mg Prednisone () 5 mg PO DAILY [facility] Stop: 12/17/18 09:01 Senna/Docusate Sodium (Senokot-S) 2 each PO HS [facility] Last Admin: 12/15/18 21:05 Dose: 2 each Sodium Chloride (Saline Flush) 10 ml IV BID [facility] Last Admin: 12/16/18 09:26 Dose: 10 ml Tamsulosin HCl (Flomax) 0.4 mg PO PC-BRKFST [facility] Last Admin: 12/16/18 09:25 Dose: 0.4 mg Objective - Vital Signs Vital signs: Vital Signs Temp 98.4 F 12/16/18 08:00 Pulse 79 12/16/18 11:59 Resp 27 H 12/16/18 10:00 BP 128/61 12/16/18 10:00 Pulse Ox 96 12/16/18 10:00 Intake & Output 12/15/18 12/16/18 12/16/18 18:59 06:59 18:59 Intake Total 912.767 357 Output Total 542 595 155 Balance 370.767 -595 202 Weight 100.6 kg Intake: IV 101 0.9NS Pressure Bag 21 Lactated Ringers 80 Intake, IV Titration 11.767 Amount Insulin Regular 100 unit 11.767 In Sodium Chloride 0.9% 100 ml @ Per Protocol IV .Q0M [facility] Rx#:[id number] Oral 800 357 Output: Urine 542 595 155 Other: Voiding Method Indwelling Catheter Indwelling Catheter Indwelling Catheter # Voids 1 ABP, PAP, CO, CI - Last Documented Arterial Blood Pressure 175/61 Pulmonary Artery Pressure 44/17 Cardiac Output 7.6 Cardiac Index 3.5 - Exam GENERAL: The patient is sitting up in a chair, alert and oriented x3, no acute distress. HEENT: Pupils are round. EOMI. No scleral icterus. No conjunctival pallor. Normocephalic, atraumatic. No JVD. CARDIOVASCULAR: S1 and S2 present. Regular, positive systolic murmurs, rubs, or gallops. PULMONARY: Respiratory effort increased ,Bilateral bases diminished , Coarse Scattered rhonchi, crackles, diffuse expiratory wheezes ABDOMEN: Soft, nontender, nondistended, normoactive bowel sounds. No palpable organomegaly. MUSCULOSKELETAL: No joint swelling or deformity. EXTREMITIES: No cyanosis, clubbing, or pedal edema. NEUROLOGICAL: Gross neurological examination did not reveal any focal deficits. Flat affect. SKIN: No rashes. - Labs CBC & Chem 7: 12/16/18 04:48 12/16/18 13:18 Labs: Abnormal Lab Results - Last 24 Hours (Table) 12/15/18 12/15/18 12/16/18 Range/Units 17:06 20:56 02:07 WBC (3.8-10.6) k/uL RBC (4.30-5.90) m/uL Hgb (13.0-17.5) gm/dL Hct (39.0-53.0) % Neutrophils # (1.3-7.7) k/uL Chloride (98-107) mmol/L BUN (9-20) mg/dL Glucose (74-99) mg/dL POC Glucose (mg/dL) 148 H 122 H 141 H (75-99) mg/dL Calcium (8.4-10.2) mg/dL Magnesium (1.6-2.3) mg/dL Total Protein (6.3-8.2) g/dL Albumin (3.5-5.0) g/dL 12/16/18 12/16/18 12/16/18 Range/Units 04:48 04:48 12:19 WBC 18.5 H (3.8-10.6) k/uL RBC 2.60 L (4.30-5.90) m/uL Hgb 7.6 L (13.0-17.5) gm/dL Hct 23.6 L (39.0-53.0) % Neutrophils # 16.6 H (1.3-7.7) k/uL Chloride 108 H (98-107) mmol/L BUN 47 H (9-20) mg/dL Glucose 70 L (74-99) mg/dL POC Glucose (mg/dL) 47 L (75-99) mg/dL Calcium 8.3 L (8.4-10.2) mg/dL Magnesium 2.7 H (1.6-2.3) mg/dL Total Protein 5.5 L (6.3-8.2) g/dL Albumin 3.0 L (3.5-5.0) g/dL 12/16/18 12/16/18 12/16/18 Range/Units 12:21 12:34 12:49 WBC (3.8-10.6) k/uL RBC (4.30-5.90) m/uL Hgb (13.0-17.5) gm/dL Hct (39.0-53.0) % Neutrophils # (1.3-7.7) k/uL Chloride (98-107) mmol/L BUN (9-20) mg/dL Glucose (74-99) mg/dL POC Glucose (mg/dL) 58 L 49 L 54 L (75-99) mg/dL Calcium (8.4-10.2) mg/dL Magnesium (1.6-2.3) mg/dL Total Protein (6.3-8.2) g/dL Albumin (3.5-5.0) g/dL 12/16/18 12/16/18 Range/Units 12:52 13:18 WBC (3.8-10.6) k/uL RBC (4.30-5.90) m/uL Hgb (13.0-17.5) gm/dL Hct (39.0-53.0) % Neutrophils # (1.3-7.7) k/uL Chloride (98-107) mmol/L BUN (9-20) mg/dL Glucose 50 L (74-99) mg/dL POC Glucose (mg/dL) 61 L (75-99) mg/dL Calcium (8.4-10.2) mg/dL Magnesium (1.6-2.3) mg/dL Total Protein (6.3-8.2) g/dL Albumin (3.5-5.0) g/dL Assessment and Plan Assessment: Acute non-ST elevation myocardial infarction, status post cardiac cath with severe 2 vessel CAD, status post CABG -Acute hypoxic respiratory failure secondary to Acute systolic Congestive heart failure, systolic dysfunction, EF 30-35%, pulmonary edema -Acute exacerbation COPD, poor FEV1,< 30% -Acute renal failure ,prerenal azotemia secondary to CHF -Possible chronic kidney disease from diabetic nephropathy -Diabetes mellitus II -Hypoglycemia -Hyperlipidemia -Hypertension -Hypothyroidism -PTSD and bipolar disorder -Nicotine dependence The impression and plan of care has been dictated as directed. Hypoglycemic, 3 separate protocol discontinued,D5/W initiated at 75 MLS initiated until blood sugars greater than 100, Levemir 20 units daily at bedtime beginning tomorrow, pre-meal insulin to 7 units of NovoLog with parameters to hold if Accu-Chek less than 120, beginning tomorrow. NovoLog sliding scale only today. Close monitoring of Accu-Cheks. Continues on dual antiplatelet therapy. Maintain nebulized bronchodilators, steroids. Further recommendations to follow. : I performed a history and examination of this patient, discussed the same with the dictator. I agree with the dictator's note ,documented as a scribe. Any additional findings or plans will be noted.
[2018-12-16 14:49] LABS: Glucose,Whole Blood 86 mg/dL (75-99)
[2018-12-16 14:49] LABS: Glucose,Whole Blood 50 mg/dL (75-99)
[2018-12-16 15:18] LABS: Glucose,Whole Blood 72 mg/dL (75-99)
[2018-12-16 16:20] LABS: Glucose,Whole Blood 80 mg/dL (75-99)
[2018-12-16] MEDS: LISINOPRIL 2.5 MG TAB PO SCH (17:51)
[2018-12-16 17:59] LABS: Glucose,Whole Blood 87 mg/dL (75-99)
[2018-12-16 21:10] LABS: Glucose,Whole Blood 221 mg/dL (75-99)
[2018-12-16] MEDS: SENNOSIDES-DOCUSATE SODIUM 1 EACH TAB PO SCH (22:10)
[2018-12-17] MEDS: HEPARIN SODIUM,PORCINE 5,000 UNIT/ML 1 ML VIAL SQ SCH ×2 (01:02→08:33)
[2018-12-17 01:38] LABS: Glucose,Whole Blood 155 mg/dL (75-99)
[2018-12-17 05:17] LABS: Basophils % (A) 0 %; Eosinophils # (A) 0.1 k/uL (0-0.7); Eosinophils % (A) 0 %; HCT 22.1 % (39.0-53.0); HGB 7.2 gm/dL (13.0-17.5); Lymphocytes # (A) 0.9 k/uL (1.0-4.8); Lymphocytes % (A) 5 %; MCH 30.1 pg (25.0-35.0); MCHC 32.7 g/dL (31.0-37.0); MCV 92.1 fL (80.0-100.0); Mean Platelet Volume 6.9; Monocytes # (A) 0.6 k/uL (0-1.0); Monocytes % (A) 3 %; Neutrophils # (A) 17.5 k/uL (1.3-7.7); Neutrophils % (A) 91 %; Platelet Count 270 k/uL (150-450); RDW 13.3 % (11.5-15.5); WBC 19.1 k/uL (3.8-10.6)
[2018-12-17 05:30] LABS: Albumin 2.7 g/dL (3.5-5.0); Calcium 7.8 mg/dL (8.4-10.2); Potassium 4.4 mmol/L (3.5-5.1); Total Bilirubin 1.1 mg/dL (0.2-1.3); Total Protein 4.9 g/dL (6.3-8.2)
[2018-12-17] MEDS: LEVOTHYROXINE 75 MCG TAB PO SCH (06:39)
[2018-12-17 07:02] LABS: Glucose,Whole Blood 248 mg/dL (75-99)
--- NOTE | 2018-12-17 07:11 | P.PN ---
Subjective Progress Note Date: 12/16/18 Principal diagnosis: Multivessel coronary artery disease, non-ST elevated myocardial infarction this admission, acute decompensated systolic heart failure with an ejection fraction of 30-35% per 2-D echocardiogram, hypertension, hyperlipidemia, insulin- dependent diabetes mellitus with admission hemoglobin A1c 6.6%, obesity, hypothyroid, bipolar disorder/posttraumatic stress disorder, history of syncope and September 2017 with demonstration of fold right lacunar infarct on brain computed tomography scan, ratio right internal carotid artery stenosis 50-69%, current tobacco dependence, severe chronic obstructive pulmonary disease with a preoperative FEV1 of 28% of predicted value and osteoarthritis with previous right hip surgery. POD #3 off-pump coronary artery bypass grafting 4 with sequential left internal mammary artery to the diagonal coronary artery and left anterior descending coronary artery, a reverse greater saphenous vein graft sequential to the posterior descending coronary artery and the posterior lateral branch of the circumflex coronary artery with endovascular vein harvest of the left greater saphenous vein. Intraoperative transesophageal echocardiogram performed by anesthesia. Postoperative acute blood loss anemia, an expected outcome of surgery. Postoperative urinary retention, an unexpected outcome. Patient is currently sitting up to the bedside chair in the intensive care unit. He is in no acute distress. He denies any complaints of pain or shortness of breath this time. He remains hemodynamically stable. His currently on 2 L nasal cannula with oxygen saturations 95% and he is achieving 750 - 1000mL on his incentive spirometry. WBC count today is 18.5, he remains afebrile. He reports that he ambulated in the intensive care unit already with assistance yesterday 2. The patient experienced some urine retention yesterday , a bladder scan was completed which showed over 300 mL of urine. A Tripp catheter was placed and he was started on Flomax 0.4 mg by mouth daily. Objective - Vital Signs Vital signs: Vital Signs Temp 98.1 F 12/16/18 04:00 Pulse 88 12/16/18 08:01 Resp 25 H 12/16/18 06:00 BP 130/70 12/16/18 06:00 Pulse Ox 92 L 12/16/18 06:00 Intake & Output 12/15/18 12/16/18 12/16/18 18:59 06:59 18:59 Intake Total 912.767 Output Total 542 595 Balance 370.767 -595 Weight 100.6 kg Intake: IV 101 0.9NS Pressure Bag 21 Lactated Ringers 80 Intake, IV Titration 11.767 Amount Insulin Regular 100 unit 11.767 In Sodium Chloride 0.9% 100 ml @ Per Protocol IV .Q0M [facility] Rx#:[id number] Oral 800 Output: Urine 542 595 Other: Voiding Method Indwelling Catheter Indwelling Catheter # Voids 1 ABP, PAP, CO, CI - Last Documented Arterial Blood Pressure 175/61 Pulmonary Artery Pressure 44/17 Cardiac Output 7.6 Cardiac Index 3.5 - Constitutional General appearance: Present: cooperative, no acute distress, obese - Respiratory Details: Lung sounds with scattered rhonchi and expiratory wheezes throughout, diminished his bilateral bases. Respirations are symmetrical and nonlabored. Oxygen saturation are 95% on 2 L nasal cannula. He is achieving 750 mL to 1000 L on his incentive spirometry. Loose nonproductive cough. - Cardiovascular Details: Regular rhythm and rate. S1 and S2 present, negative for S3, gallop or murmur. Sternum is stable. Bedside telemetry showing normal sinus rhythm heart rate 92. Heart hugger is in place and he is demonstrating appropriate use. No edema present. Knee-high JORGE hose and sequential compression devices in place to his bilateral lower extremities. - Gastrointestinal Gastrointestinal Comment(s): Abdomen soft, nontender and nondistended. Active bowel sounds all 4 abdominal quadrants. No organomegaly. No guarding or rigidity. Tolerating oral intake. Passing flatus. - Genitourinary Genitourinary Comment(s): Tripp catheter for accurate I&O and urine retention. Draining clear megan urine. 415 mL output in the last 8 hours. - Integumentary Integumentary Comment(s): Skin is warm and dry. No clubbing or cyanosis is present. Midline sternal incision is clean, dry and approximated. No drainage or redness present. Gauze dressing is clean and dry. Left lower extremity EVH site clean, dry and approximated. No drainage or redness is present. - Neurologic Neurologic: Present: CNII-XII intact - Musculoskeletal Musculoskeletal: Present: gait normal, generalized weakness, strength equal bilaterally - Psychiatric Psychiatric: Present: A&O x's 3, appropriate affect, intact judgment & insight - Allied health notes Allied health notes reviewed: nursing - Labs CBC & Chem 7: 12/17/18 04:53 01/22/19 04:53 Labs: Abnormal Lab Results - Last 24 Hours (Table) 12/15/18 12/15/18 12/15/18 Range/Units 11:53 17:06 20:56 WBC (3.8-10.6) k/uL RBC (4.30-5.90) m/uL Hgb (13.0-17.5) gm/dL Hct (39.0-53.0) % Neutrophils # (1.3-7.7) k/uL Chloride (98-107) mmol/L BUN (9-20) mg/dL Glucose (74-99) mg/dL POC Glucose (mg/dL) 219 H 148 H 122 H (75-99) mg/dL Calcium (8.4-10.2) mg/dL Magnesium (1.6-2.3) mg/dL Total Protein (6.3-8.2) g/dL Albumin (3.5-5.0) g/dL 12/16/18 12/16/18 12/16/18 Range/Units 02:07 04:48 04:48 WBC 18.5 H (3.8-10.6) k/uL RBC 2.60 L (4.30-5.90) m/uL Hgb 7.6 L (13.0-17.5) gm/dL Hct 23.6 L (39.0-53.0) % Neutrophils # 16.6 H (1.3-7.7) k/uL Chloride 108 H (98-107) mmol/L BUN 47 H (9-20) mg/dL Glucose 70 L (74-99) mg/dL POC Glucose (mg/dL) 141 H (75-99) mg/dL Calcium 8.3 L (8.4-10.2) mg/dL Magnesium 2.7 H (1.6-2.3) mg/dL Total Protein 5.5 L (6.3-8.2) g/dL Albumin 3.0 L (3.5-5.0) g/dL - Imaging and Cardiology Chest x-ray: report reviewed, image reviewed Assessment and Plan (1) Elevated serum creatinine Current Visit: Yes Status: Acute Code(s): R79.89 - OTHER SPECIFIED ABNORMAL FINDINGS OF BLOOD CHEMISTRY SNOMED Code(s): 782607696 (2) COPD (chronic obstructive pulmonary disease) Current Visit: Yes Status: Acute Code(s): J44.9 - CHRONIC OBSTRUCTIVE PULMONARY DISEASE, UNSPECIFIED SNOMED Code(s): 71260102 (3) Coronary artery disease Current Visit: Yes Status: Acute Code(s): I25.10 - ATHSCL HEART DISEASE OF [place] CORONARY ARTERY W/O ANG PCTRS SNOMED Code(s): 32975668 (4) Acute systolic heart failure Current Visit: Yes Status: Acute Code(s): I50.21 - ACUTE SYSTOLIC ( CONGESTIVE) HEART FAILURE SNOMED Code(s): 175749567 (5) Non-STEMI (non-ST elevated myocardial infarction) Current Visit: Yes Status: Acute Code(s): I21.4 - NON-ST ELEVATION (NSTEMI) MYOCARDIAL INFARCTION SNOMED Code(s): 00207598 (6) Bipolar disorder Current Visit: Yes Status: Chronic Code(s): F31.9 - BIPOLAR DISORDER, UNSPECIFIED SNOMED Code(s): 15279156 (7) Hyperlipidemia associated with type 2 diabetes mellitus Current Visit: Yes Status: Chronic Code(s): E11.69 - TYPE 2 DIABETES MELLITUS WITH OTHER SPECIFIED COMPLICATION; E78.5 - HYPERLIPIDEMIA, UNSPECIFIED SNOMED Code(s): 499072983539 (8) Hypertension Current Visit: Yes Status: Chronic Code(s): I10 - ESSENTIAL (PRIMARY) HYPERTENSION SNOMED Code(s): 91482068 (9) Hypoactive thyroid Current Visit: Yes Status: Chronic Code(s): E03.9 - HYPOTHYROIDISM, UNSPECIFIED SNOMED Code(s): 82697841 (10) Stenosis of right carotid artery greater than 50% Current Visit: Yes Status: Chronic Code(s): I65.21 - OCCLUSION AND STENOSIS OF RIGHT CAROTID ARTERY SNOMED Code(s): 758569420814274 (11) Tobacco dependence Current Visit: Yes Status: Chronic Code(s): F17.200 - NICOTINE DEPENDENCE, UNSPECIFIED, UNCOMPLICATED SNOMED Code(s): 07012861 (12) Anxiety and depression Current Visit: No Status: Acute Code(s): F41.9 - ANXIETY DISORDER, UNSPECIFIED SNOMED Code(s): 51132676 (13) Diabetes Current Visit: No Status: Acute Code(s): E11.9 - TYPE 2 DIABETES MELLITUS WITHOUT COMPLICATIONS SNOMED Code(s): 10125861 Plan: 1. Continue aspirin, statin, Plavix and beta sergio. Will increase metoprolol tartrate 50 mg by mouth twice a day 2. No diuresis today. 3. Wean O2 as tolerated. Encourage and some spirometry is 10 times every hour while awake. 4. Increase activity as tolerated, ambulate in hallway. PT/OT/cardiac rehab following. 5. Bronchodilators management per pulmonology. Continue prednisone 10 mg by mouth 1 dose today and 5 mg by mouth tomorrow then discontinue. 6. Pain controlled current medication regimen. 7. Will monitor daily labs and x-rays. Electrolyte replacement per protocol. 8. Insulin management per primary care service. 9. GI prophylaxis with Protonix, DVT prophylaxis with subcu heparin, SCDs. 10. Continue Tripp catheter for urinary retention. Continue Flomax 0.4 mg by mouth daily 11. Dr. Wise's consult noted and appreciated. 12. Patient will be transferred to [address] [place] [address] cardiac stepdown unit for further rehabilitation needs. 13. Anticipate the patient will need inpatient rehab for subacute rehab upon discharge. 14. Start Lisinopril 2.5 mg by mouth daily, preoperative EF 30-35%. 15. More recommendations to follow based on patient's clinical course. Time with Patient: Greater than 30
[2018-12-17] MEDS: INSULIN ASPART 100 UNIT/ML 1 ML 10 ML VIAL SQ SCH ×4 (07:25→12:44)
[2018-12-17] MEDS ORDERED: INSULIN ASPART 100 UNIT/ML 1 ML 10 ML VIAL SQ SCH (07:30)
[2018-12-17] MEDS: IPRATROPIUM-ALBUTEROL 3 ML NEB INHALATION SCH ×3 (07:43→14:57)
--- NOTE | 2018-12-17 08:17 | XR ---
EXAMINATION TYPE: XR chest 2V DATE OF EXAM: 12/17/2018 COMPARISON: Chest x-ray from yesterday and older studies. HISTORY: Post open cardiac surgery. TECHNIQUE: Frontal and lateral views of the chest are obtained. FINDINGS: Overlying sternal wires are redemonstrated. Cardiac silhouette size is stable and mildly e nlarged. Reticular interstitial changes bilaterally remain present. There is improving bilateral opac ities. There are suspected stable small bilateral pleural effusions seen best on lateral view with as sociated atelectasis and/or infiltrate. Visualized osseous structures are intact.. IMPRESSION: Improving bilateral alveolar edema and/or infiltrates. Background chronic parenchymal ch ramy and mild cardiomegaly with persistent small bilateral pleural effusions and associated bibasilar atelectasis and/or infiltrate all redemonstrated.
[2018-12-17] MEDS: PANTOPRAZOLE 40 MG TABLET PO SCH (08:33)
[2018-12-17] MEDS: ASPIRIN 325 MG TAB PO SCH (08:34)
[2018-12-17] MEDS: ATORVASTATIN 40 MG TAB PO SCH (08:34)
[2018-12-17] MEDS: TAMSULOSIN 0.4 MG CAP.ER.24H PO SCH (08:34)
[2018-12-17] MEDS: CLOPIDOGREL 75 MG TAB PO SCH (08:34)
[2018-12-17] MEDS: FUROSEMIDE 10 MG/ML 4 ML VIAL IV SCH (08:34)
[2018-12-17] MEDS: METOPROLOL TARTRATE 50 MG TAB PO SCH (08:35)
[2018-12-17] MEDS: guaiFENesin 600 MG TABLET.ER PO SCH (08:35)
--- NOTE | 2018-12-17 08:52 | P.PN ---
Subjective Progress Note Date: 12/17/18 Principal diagnosis: Acute coronary syndrome This is a pleasant 68-year-old gentleman who was admitted to the hospital with chest discomfort and ruled in for acute non-ST patient myocardial infarction. 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 Giving his anatomy, coronary artery bypass grafting was advised. The patient underwent CABG 4. He underwent FLORES to LAD and diagonal and SVG to PDA and PLV. On follow-up with the patient today, December 172018, he is doing well. He is asymptomatic. Hemodynamically he is stable. The blood work indicated a hemoglobin of 7.2 and the creatinine is within normal limits. He continues to be on dual antiplatelet therapy along with a statin as well as metoprolol. The plan for the patient is to go to rehab later on today. The chest x-ray today is looking better as well. Objective - Vital Signs Vital signs: Vital Signs Temp 97.8 F 12/17/18 08:00 Pulse 97 12/17/18 08:00 Resp 20 12/17/18 08:00 BP 131/62 12/17/18 08:00 Pulse Ox 93 L 12/17/18 08:00 Intake & Output 12/16/18 12/17/18 12/17/18 18:59 06:59 18:59 Intake Total 1157 240 360 Output Total 1365 2200 135 Balance -208 -1959 225 Weight 97.9 kg Intake: Oral 1157 240 360 Output: Urine 1365 2200 135 Other: Voiding Method Indwelling Catheter Indwelling Catheter # Bowel Movements 1 ABP, PAP, CO, CI - Last Documented Arterial Blood Pressure 175/61 Pulmonary Artery Pressure 44/17 Cardiac Output 7.6 Cardiac Index 3.5 - Constitutional General appearance: Present: no acute distress - Respiratory Respiratory: bilateral: CTA - Cardiovascular Rhythm: regular - Labs CBC & Chem 7: 12/17/18 04:53 12/17/18 04:53 Labs: Abnormal Lab Results - Last 24 Hours (Table) 12/16/18 12/16/18 12/16/18 Range/Units 12:19 12:21 12:34 WBC (3.8-10.6) k/uL RBC (4.30-5.90) m/uL Hgb (13.0-17.5) gm/dL Hct (39.0-53.0) % Neutrophils # (1.3-7.7) k/uL Lymphocytes # (1.0-4.8) k/uL Sodium (137-145) mmol/L BUN (9-20) mg/dL Glucose (74-99) mg/dL POC Glucose (mg/dL) 47 L 58 L 49 L (75-99) mg/dL Calcium (8.4-10.2) mg/dL Total Protein (6.3-8.2) g/dL Albumin (3.5-5.0) g/dL 12/16/18 12/16/18 12/16/18 Range/Units 12:49 12:52 13:18 WBC (3.8-10.6) k/uL RBC (4.30-5.90) m/uL Hgb (13.0-17.5) gm/dL Hct (39.0-53.0) % Neutrophils # (1.3-7.7) k/uL Lymphocytes # (1.0-4.8) k/uL Sodium (137-145) mmol/L BUN (9-20) mg/dL Glucose 50 L (74-99) mg/dL POC Glucose (mg/dL) 54 L 61 L (75-99) mg/dL Calcium (8.4-10.2) mg/dL Total Protein (6.3-8.2) g/dL Albumin (3.5-5.0) g/dL 12/16/18 12/16/18 12/16/18 Range/Units 14:11 15:15 21:06 WBC (3.8-10.6) k/uL RBC (4.30-5.90) m/uL Hgb (13.0-17.5) gm/dL Hct (39.0-53.0) % Neutrophils # (1.3-7.7) k/uL Lymphocytes # (1.0-4.8) k/uL Sodium (137-145) mmol/L BUN (9-20) mg/dL Glucose (74-99) mg/dL POC Glucose (mg/dL) 50 L 72 L 221 H (75-99) mg/dL Calcium (8.4-10.2) mg/dL Total Protein (6.3-8.2) g/dL Albumin (3.5-5.0) g/dL 12/17/18 12/17/18 12/17/18 Range/Units 01:35 04:53 04:53 WBC 19.1 H (3.8-10.6) k/uL RBC 2.40 L (4.30-5.90) m/uL Hgb 7.2 L (13.0-17.5) gm/dL Hct 22.1 L (39.0-53.0) % Neutrophils # 17.5 H (1.3-7.7) k/uL Lymphocytes # 0.9 L (1.0-4.8) k/uL Sodium 136 L (137-145) mmol/L BUN 42 H (9-20) mg/dL Glucose 180 H (74-99) mg/dL POC Glucose (mg/dL) 155 H (75-99) mg/dL Calcium 7.8 L (8.4-10.2) mg/dL Total Protein 4.9 L (6.3-8.2) g/dL Albumin 2.7 L (3.5-5.0) g/dL 12/17/18 Range/Units 06:59 WBC (3.8-10.6) k/uL RBC (4.30-5.90) m/uL Hgb (13.0-17.5) gm/dL Hct (39.0-53.0) % Neutrophils # (1.3-7.7) k/uL Lymphocytes # (1.0-4.8) k/uL Sodium (137-145) mmol/L BUN (9-20) mg/dL Glucose (74-99) mg/dL POC Glucose (mg/dL) 248 H (75-99) mg/dL Calcium (8.4-10.2) mg/dL Total Protein (6.3-8.2) g/dL Albumin (3.5-5.0) g/dL Assessment and Plan Assessment: Assessment #1 acute coronary event #2 status post CABG as described above #3 multiple comorbid conditions Plan #1 the patient is on dual antiplatelet therapy will continue that #2 the hemoglobin as well as a creatinine seems to be stable #3 the patient might benefit from extra dose of Lasix #4 the patient is going to rehab later on today.
[2018-12-17] MEDS ORDERED: predniSONE 5 MG TAB PO SCH (09:00)
--- NOTE | 2018-12-17 09:00 | P.PN ---
Subjective Progress Note Date: 12/17/18 Principal diagnosis: Multivessel coronary artery disease, non-STEMI, subendocardial infarction, acute decompensated systolic heart failure with EF 30-35%. Previous medical history of hypertension, hyperlipidemia, insulin-dependent diabetes mellitus with current hemoglobin A1c 6.6%, obesity, hypothyroid, bipolar/PTSD, syncope in September 2017 with demonstration of old right lacunar infarct on brain CT, right internal carotid artery stenosis 50-69%, current tobacco dependence, severe COPD with preoperative FEV1 28% of predicted, and right hip surgery. Preoperative acute kidney injury and normocytic, normochromic anemia of unknown cause. POD #4 urgent off-pump coronary artery bypass graft 4 with sequential left internal mammary artery to diagonal and left anterior descending coronary artery and sequential vein graft to posterior descending and posterior lateral branches of the circumflex coronary artery with endovascular vein harvest. Intraoperative transesophageal echocardiogram performed by anesthesia. Postoperative acute blood loss anemia, an expected outcome given the patient's preoperative anemia. Postoperative urinary retention, an unexpected outcome. The patient is currently sitting up in a recliner in no acute distress the intensive care unit. He denies any pain or shortness of breath. States he is feeling better everyday. Transfer orders were placed yesterday for cardiac stepdown unit however there is no bed available at this time. Patient did ambulate in the ICU hallway 2 yesterday without any difficulty. He did have urinary retention requiring reinsertion of Tripp catheter and initiation of Flomax. No new complaints. Objective - Vital Signs Vital signs: Vital Signs Temp 97.8 F 12/17/18 08:00 Pulse 97 12/17/18 08:00 Resp 20 12/17/18 08:00 BP 131/62 12/17/18 08:00 Pulse Ox 93 L 12/17/18 08:00 Intake & Output 12/16/18 12/17/18 12/17/18 18:59 06:59 18:59 Intake Total 1157 240 360 Output Total 1365 2200 135 Balance - -1959 225 Weight 97.9 kg Intake: Oral 1157 240 360 Output: Urine 1365 2200 135 Other: Voiding Method Indwelling Catheter Indwelling Catheter # Bowel Movements 1 ABP, PAP, CO, CI - Last Documented Arterial Blood Pressure 175/61 Pulmonary Artery Pressure 44/17 Cardiac Output 7.6 Cardiac Index 3.5 - Constitutional General appearance: Present: cooperative, no acute distress, obese - Respiratory Details: Lungs sounds diminished bilaterally. Respirations even, nonlabored. Currently on room air with oxygen saturation 93%. Able to achieve 1000 mL on his incentive spirometry. Strong, productive cough. - Cardiovascular Details: S1, S2 present. Regular rate and rhythm, sinus rhythm on telemetry. Sternum stable. Palpable peripheral pulses bilaterally. No edema present. No calf pain or tenderness noted. Heart hugger in place with patient demonstrating appropriate use. Antiembolism stockings, SCDs present. - Gastrointestinal Gastrointestinal Comment(s): Abdomen soft, nontender, nondistended. Active bowel sounds 4 quadrants. Tolerating diet. Positive bowel movement yesterday. - Genitourinary Genitourinary Comment(s): Tripp present draining clear, yellow urine. Output 100-350 mL per hour overnight, 1675 mL the last 8 hours. - Integumentary Integumentary Comment(s): Skin is warm and dry with evidence of good perfusion. Anterior chest incision well approximated and covered with dry intact dressing. Left lower extremity EVH site well approximated without drainage. - Neurologic Neurologic: Present: CNII-XII intact - Musculoskeletal Musculoskeletal: Present: gait normal, strength equal bilaterally - Psychiatric Psychiatric: Present: appropriate affect, intact judgment & insight - Allied health notes Allied health notes reviewed: nursing - Labs CBC & Chem 7: 12/17/18 04:53 12/17/18 04:53 Labs: Abnormal Lab Results - Last 24 Hours (Table) 12/16/18 12/16/18 12/16/18 Range/Units 12:19 12:21 12:34 WBC (3.8-10.6) k/uL RBC (4.30-5.90) m/uL Hgb (13.0-17.5) gm/dL Hct (39.0-53.0) % Neutrophils # (1.3-7.7) k/uL Lymphocytes # (1.0-4.8) k/uL Sodium (137-145) mmol/L BUN (9-20) mg/dL Glucose (74-99) mg/dL POC Glucose (mg/dL) 47 L 58 L 49 L (75-99) mg/dL Calcium (8.4-10.2) mg/dL Total Protein (6.3-8.2) g/dL Albumin (3.5-5.0) g/dL 12/16/18 12/16/18 12/16/18 Range/Units 12:49 12:52 13:18 WBC (3.8-10.6) k/uL RBC (4.30-5.90) m/uL Hgb (13.0-17.5) gm/dL Hct (39.0-53.0) % Neutrophils # (1.3-7.7) k/uL Lymphocytes # (1.0-4.8) k/uL Sodium (137-145) mmol/L BUN (9-20) mg/dL Glucose 50 L (74-99) mg/dL POC Glucose (mg/dL) 54 L 61 L (75-99) mg/dL Calcium (8.4-10.2) mg/dL Total Protein (6.3-8.2) g/dL Albumin (3.5-5.0) g/dL 12/16/18 12/16/18 12/16/18 Range/Units 14:11 15:15 21:06 WBC (3.8-10.6) k/uL RBC (4.30-5.90) m/uL Hgb (13.0-17.5) gm/dL Hct (39.0-53.0) % Neutrophils # (1.3-7.7) k/uL Lymphocytes # (1.0-4.8) k/uL Sodium (137-145) mmol/L BUN (9-20) mg/dL Glucose (74-99) mg/dL POC Glucose (mg/dL) 50 L 72 L 221 H (75-99) mg/dL Calcium (8.4-10.2) mg/dL Total Protein (6.3-8.2) g/dL Albumin (3.5-5.0) g/dL 12/17/18 12/17/18 12/17/18 Range/Units 01:35 04:53 04:53 WBC 19.1 H (3.8-10.6) k/uL RBC 2.40 L (4.30-5.90) m/uL Hgb 7.2 L (13.0-17.5) gm/dL Hct 22.1 L (39.0-53.0) % Neutrophils # 17.5 H (1.3-7.7) k/uL Lymphocytes # 0.9 L (1.0-4.8) k/uL Sodium 136 L (137-145) mmol/L BUN 42 H (9-20) mg/dL Glucose 180 H (74-99) mg/dL POC Glucose (mg/dL) 155 H (75-99) mg/dL Calcium 7.8 L (8.4-10.2) mg/dL Total Protein 4.9 L (6.3-8.2) g/dL Albumin 2.7 L (3.5-5.0) g/dL 12/17/18 Range/Units 06:59 WBC (3.8-10.6) k/uL RBC (4.30-5.90) m/uL Hgb (13.0-17.5) gm/dL Hct (39.0-53.0) % Neutrophils # (1.3-7.7) k/uL Lymphocytes # (1.0-4.8) k/uL Sodium (137-145) mmol/L BUN (9-20) mg/dL Glucose (74-99) mg/dL POC Glucose (mg/dL) 248 H (75-99) mg/dL Calcium (8.4-10.2) mg/dL Total Protein (6.3-8.2) g/dL Albumin (3.5-5.0) g/dL - Imaging and Cardiology Chest x-ray: report reviewed, image reviewed Assessment and Plan (1) Non-STEMI (non-ST elevated myocardial infarction) Current Visit: Yes Status: Acute Code(s): I21.4 - NON-ST ELEVATION (NSTEMI) MYOCARDIAL INFARCTION SNOMED Code(s): 13590810 (2) Acute systolic heart failure Current Visit: Yes Status: Acute Code(s): I50.21 - ACUTE SYSTOLIC ( CONGESTIVE) HEART FAILURE SNOMED Code(s): 273353384 (3) Hyperlipidemia associated with type 2 diabetes mellitus Current Visit: Yes Status: Chronic Code(s): E11.69 - TYPE 2 DIABETES MELLITUS WITH OTHER SPECIFIED COMPLICATION; E78.5 - HYPERLIPIDEMIA, UNSPECIFIED SNOMED Code(s): 549864476467 (4) Tobacco dependence Current Visit: Yes Status: Chronic Code(s): F17.200 - NICOTINE DEPENDENCE, UNSPECIFIED, UNCOMPLICATED SNOMED Code(s): 84369642 (5) History of syncope Current Visit: No Status: Resolved Code(s): Z87.898 - PERSONAL HISTORY OF OTHER SPECIFIED CONDITIONS SNOMED Code(s): 589774733252926 (6) Stenosis of right carotid artery greater than 50% Current Visit: Yes Status: Chronic Code(s): I65.21 - OCCLUSION AND STENOSIS OF RIGHT CAROTID ARTERY SNOMED Code(s): 608815341817354 (7) Acute respiratory failure with hypoxia Current Visit: Yes Status: Acute Code(s): J96.01 - ACUTE RESPIRATORY FAILURE WITH HYPOXIA SNOMED Code(s): 27544272 (8) Hypertension Current Visit: Yes Status: Chronic Code(s): I10 - ESSENTIAL (PRIMARY) HYPERTENSION SNOMED Code(s): 10144077 (9) Hypertensive emergency Current Visit: Yes Status: Acute Code(s): I16.1 - HYPERTENSIVE EMERGENCY SNOMED Code(s): 916642513396391 (10) Diabetes mellitus type 2, uncontrolled Current Visit: Yes Status: Chronic Code(s): E11.65 - TYPE 2 DIABETES MELLITUS WITH HYPERGLYCEMIA SNOMED Code(s): 09158396 (11) Hypoactive thyroid Current Visit: Yes Status: Chronic Code(s): E03.9 - HYPOTHYROIDISM, UNSPECIFIED SNOMED Code(s): 30246330 (12) Bipolar disorder Current Visit: Yes Status: Chronic Code(s): F31.9 - BIPOLAR DISORDER, UNSPECIFIED SNOMED Code(s): 36598572 Plan: 1. Continue aspirin, statin, Plavix, JOSE M inhibitor, beta sergio therapy. Will increase beta sergio therapy as tolerated. 2. Continue Lasix per pulmonology. Will transition to oral upon discharge. 3. Encourage incentive spirometry use. Encourage continued smoking cessation. 4. Increase activity as tolerated, ambulate in hallway. PT/OT/history rehab following. 5. Will monitor daily labs and x-rays. Electrolyte replacement per protocol. 6. GI prophylaxis with Protonix, DVT prophylaxis with subcu heparin, SCDs. 7. Bronchodilators per pulmonology. 8. Continue Flomax. Will try voiding trial again after patient has been on Flomax for a couple of days. 9. Pain control with current medication regimen. 10. Insulin per primary care service. 11. May transfer bed becomes available on 3 S. 12. Anticipate discharge to [facility] inpatient rehab later today versus tomorrow depending on insurance authorization and bed availability. 13. More recommendations to follow. Time with Patient: Greater than 30
--- NOTE | 2018-12-17 11:16 | P.PN ---
Subjective Progress Note Date: 12/17/18 Principal diagnosis: Status post CABG, postoperative day # 4 Patient was seen today on 12/16/2018, he is status post off-pump coronary artery bypass surgery with 4 vessel bypass including FLORES to LAD, saphenous vein graft to PDA circumflex branch is postoperative day #3. Patient seems to be doing fairly well, however his O2 saturations are marginal, and a chest x-ray is showing worsening interstitial edema compared to the chest x-ray in the last few days. Urine output is about 30-40 mL per hour, patient has poor LV function , hence after examining examining the patient I recommended Lasix 40 mg IV push every 12 hours. Patient was reevaluated today on 12/17/2018, patient is feeling better he responded quite well to the Lasix given yesterday. His chest x-ray is significantly improved. His clinical status is improved, patient is presently on room air, hence I went ahead and cut down his Lasix from 40 mg twice a day to 40 mg once daily. Plans are being considered today to possibly transfer the patient to a rehab facility or possibly out of the ICU to a monitor bed on selective. Patient denies any cough no wheezing no shortness of breath. Labs were all reviewed. Hemoglobin is 7.2. And creatinine is close to his baseline Objective - Vital Signs Vital signs: Vital Signs Temp 97.8 F 12/17/18 08:00 Pulse 93 12/17/18 10:00 Resp 23 12/17/18 10:00 BP 131/62 12/17/18 08:00 Pulse Ox 93 L 12/17/18 10:00 Intake & Output 12/16/18 12/17/18 12/17/18 18:59 06:59 18:59 Intake Total 1157 240 360 Output Total 1365 2200 485 Balance - Weight 97.9 kg Intake: Oral 1157 240 360 Output: Urine 1365 2200 485 Other: Voiding Method Indwelling Catheter Indwelling Catheter Indwelling Catheter # Bowel Movements 1 ABP, PAP, CO, CI - Last Documented Arterial Blood Pressure 175/61 Pulmonary Artery Pressure 44/17 Cardiac Output 7.6 Cardiac Index 3.5 - Exam Physical Exam: Revealed a 68-year-old white male on room air, in no distress. Head: Atraumatic normocephalic. HEENT:[Neck is supple.] [No neck masses.] [No thyromegaly.] [No JVD.] PERRLA, EOMI, no icterus. Chest: [Minimal crackles at the bases, no rhonchi no wheezes, symmetrical chest expansion. Cardiac Exam: [Normal S1 and S2, no S3 gallop, 2/6 systolic murmur thought the precordium. Abdomen: [Soft, nontender, no megaly, no rebound, no guarding, normal bowel sounds.] Extremities: [No clubbing, no edema, no cyanosis.] Neurological Exam: [No focal neurologic deficit.] Lymphatics:no Lymphadenopathy Psychiatric: Normal mood, affect and mental status examination. - Labs CBC & Chem 7: 12/17/18 04:53 12/17/18 04:53 Labs: Abnormal Lab Results - Last 24 Hours (Table) 12/16/18 12/16/18 12/16/18 Range/Units 12:19 12:21 12:34 WBC (3.8-10.6) k/uL RBC (4.30-5.90) m/uL Hgb (13.0-17.5) gm/dL Hct (39.0-53.0) % Neutrophils # (1.3-7.7) k/uL Lymphocytes # (1.0-4.8) k/uL Sodium (137-145) mmol/L BUN (9-20) mg/dL Glucose (74-99) mg/dL POC Glucose (mg/dL) 47 L 58 L 49 L (75-99) mg/dL Calcium (8.4-10.2) mg/dL Total Protein (6.3-8.2) g/dL Albumin (3.5-5.0) g/dL 12/16/18 12/16/18 12/16/18 Range/Units 12:49 12:52 13:18 WBC (3.8-10.6) k/uL RBC (4.30-5.90) m/uL Hgb (13.0-17.5) gm/dL Hct (39.0-53.0) % Neutrophils # (1.3-7.7) k/uL Lymphocytes # (1.0-4.8) k/uL Sodium (137-145) mmol/L BUN (9-20) mg/dL Glucose 50 L (74-99) mg/dL POC Glucose (mg/dL) 54 L 61 L (75-99) mg/dL Calcium (8.4-10.2) mg/dL Total Protein (6.3-8.2) g/dL Albumin (3.5-5.0) g/dL 12/16/18 12/16/18 12/16/18 Range/Units 14:11 15:15 21:06 WBC (3.8-10.6) k/uL RBC (4.30-5.90) m/uL Hgb (13.0-17.5) gm/dL Hct (39.0-53.0) % Neutrophils # (1.3-7.7) k/uL Lymphocytes # (1.0-4.8) k/uL Sodium (137-145) mmol/L BUN (9-20) mg/dL Glucose (74-99) mg/dL POC Glucose (mg/dL) 50 L 72 L 221 H (75-99) mg/dL Calcium (8.4-10.2) mg/dL Total Protein (6.3-8.2) g/dL Albumin (3.5-5.0) g/dL 12/17/18 12/17/18 12/17/18 Range/Units 01:35 04:53 04:53 WBC 19.1 H (3.8-10.6) k/uL RBC 2.40 L (4.30-5.90) m/uL Hgb 7.2 L (13.0-17.5) gm/dL Hct 22.1 L (39.0-53.0) % Neutrophils # 17.5 H (1.3-7.7) k/uL Lymphocytes # 0.9 L (1.0-4.8) k/uL Sodium 136 L (137-145) mmol/L BUN 42 H (9-20) mg/dL Glucose 180 H (74-99) mg/dL POC Glucose (mg/dL) 155 H (75-99) mg/dL Calcium 7.8 L (8.4-10.2) mg/dL Total Protein 4.9 L (6.3-8.2) g/dL Albumin 2.7 L (3.5-5.0) g/dL 12/17/18 Range/Units 06:59 WBC (3.8-10.6) k/uL RBC (4.30-5.90) m/uL Hgb (13.0-17.5) gm/dL Hct (39.0-53.0) % Neutrophils # (1.3-7.7) k/uL Lymphocytes # (1.0-4.8) k/uL Sodium (137-145) mmol/L BUN (9-20) mg/dL Glucose (74-99) mg/dL POC Glucose (mg/dL) 248 H (75-99) mg/dL Calcium (8.4-10.2) mg/dL Total Protein (6.3-8.2) g/dL Albumin (3.5-5.0) g/dL Assessment and Plan Assessment: Impression: 1 status post CABG postoperative day #4, off pump coronary artery bypass with four-vessel. 2 severe pulmonary edema secondary to systolic dysfunction and congestive heart failure, significantly improved over the last 24 hours since Lasix was added at 40 mg IV push every 12 hours 3 impaired LV function, ejection fraction 30-35%. 4 history of hypertension 5 hypothyroidism 6 type 2 diabetes 7 history of severe COPD FEV1 is no more than 30% at best. 8 nicotine dependence syndrome, [id number] smoking history. Recommendation: Patient demonstrated a significant improvement with Lasix given over the last 24 hours, his chest x-ray is significantly improved. Clinically the patient is improved, physical examination findings are much improved. Hence we will continue the Lasix but at a lower dose, continue to monitor renal profile, patient could be transferred to [facility] today, and if he does have a bed in rehab, consider transfer to rehab if agreeable with other consultants on the case. Time with Patient: Less than 30
[2018-12-17 11:58] VITALS: BP 118/56
--- NOTE | 2018-12-17 12:02 | P.DS ---
Providers Date of admission: 12/06/18 23:37 Expected date of discharge: 12/17/18 Attending physician: Kiko Horn Consults: 12/06/18 23:37 Consult Physician Routine Consulting Provider: Nigel Koch Consult Reason/Comments: icu Do you want consulting provider notified?: Yes Consult Physician Routine Consulting Provider: Sonia Galvez Consult Reason/Comments: elevTrop Do you want consulting provider notified?: Yes 12/07/18 14:41 Consult Physician Routine Consulting Provider: Ze Lucas Consult Reason/Comments: possible bypass Do you want consulting provider notified?: Already Contacted 12/09/18 15:57 Consult to Anesthesia Routine Consulting Provider: Anesthesia,Services Consult Reason/Comments: Cardiac Surgery Pre-Op 12/13/18 12:09 Consult Physician Routine Consulting Provider: Mariano Sanchez Consult Reason/Comments: medical management Do you want consulting provider notified?: Already Contacted 12/15/18 10:03 Consult Physician Routine Consulting Provider: Hermes Wise Consult Reason/Comments: Possible inpatient rehab placement Do you want consulting provider notified?: Yes, Notify in am Primary care physician: Zaida Horton - Discharge Diagnosis(es) (1) Non-STEMI (non-ST elevated myocardial infarction) Current Visit: Yes Status: Acute (2) Acute systolic heart failure Current Visit: Yes Status: Acute (3) Hyperlipidemia associated with type 2 diabetes mellitus Current Visit: Yes Status: Chronic (4) Tobacco dependence Current Visit: Yes Status: Chronic (5) History of syncope Current Visit: No Status: Resolved (6) Stenosis of right carotid artery greater than 50% Current Visit: Yes Status: Chronic (7) Acute respiratory failure with hypoxia Current Visit: Yes Status: Acute (8) Hypertension Current Visit: Yes Status: Chronic (9) Hypertensive emergency Current Visit: Yes Status: Acute (10) Diabetes mellitus type 2, uncontrolled Current Visit: Yes Status: Chronic (11) Hypoactive thyroid Current Visit: Yes Status: Chronic (12) Bipolar disorder Current Visit: Yes Status: Chronic Hospital Course: FINAL DIAGNOSIS: 1. Multivessel coronary artery disease, non-STEMI, subendocardial infarction 2. Acute decompensated systolic heart failure with EF 30-35% 3. Hypertension 4. Hyperlipidemia 5. Insulin-dependent diabetes mellitus with preoperative hemoglobin A1c 6.6% 6. Obesity 7. Hypothyroid 8. Bipolar/PTSD 9. Syncope in September 2017, old right lacunar infarct and brain CT 10. Right internal carotid artery stenosis 50-69% 11. Current tobacco dependence 12. Severe COPD with preoperative FEV1 20% of predicted 13. Previous right hip surgery 14. Preoperative acute kidney injury 15. Preoperative normocytic, normochromic anemia of unknown cause 16. Postoperative acute blood loss anemia, expected outcome 17. Postoperative urinary retention, unexpected outcome PRINCIPAL PROCEDURE: 1. Left heart catheterization 2. Urgent off-pump coronary artery bypass graft 4 with sequential left internal mammary artery to diagonal and left anterior descending coronary artery and sequential vein graft to posterior descending and posterior lateral branches of the circumflex coronary artery 3. Endovascular vein harvest 4. Intraoperative transesophageal echocardiogram performed by anesthesia HISTORY OF PRESENT ILLNESS: This is a 68-year-old gentleman who follows with Dr. Cerda on an outpatient basis. He presented to [facility] emergency room after approximately 1 week of progressive shortness of breath. He also complained of dry cough but denied any pain, fever, sick contacts, or any other symptoms. He was found to be hypoxic and was placed on BiPAP. He was also hypertensive with his initial blood pressures 199/107 and 203/93. Troponins were elevated and he was admitted to the intensive care unit with a diagnosis of non-STEMI, acute decompensated systolic heart failure, and hypertensive emergency. With initiation of IV diuretics he was able to be weaned off BiPAP. Transesophageal echocardiogram as completed demonstrating impaired ventricular function with an EF 3035%, hypokinetic apical anterior, lateral, inferior, and septal LV wall motion, and mild mitral regurgitation. He was recommended to undergo heart catheterization which Dr. Thompson performed in which demonstrated two-vessel heavily calcified coronary artery disease, dominant circumflex artery with 78% stenosis in the PDA and PLV branches, ostial OM stenosis 70-80%, and 95% focal lesion in the mid LAD. The patient was referred to Dr. Lucas from cardiothoracic surgery. He was recommended to undergo urgent coronary artery bypass grafting. The usual perioperative course was discussed in detail with the patient and his family, all risks and benefits were explained, all questions were answered, and consent was obtained to proceed with surgery. He did remain inpatient due to the nature of his disease , and received aggressive pulmonary management with steroids prior to surgery. He was allowed recovery with maximal medical therapy prior to surgery. HOSPITAL COURSE: The patient was brought to the preoperative area on 12/13/2018, prepared in the usual fashion, and subsequently taken to the operating room where Dr. Horn performed urgent off-pump coronary artery bypass graft 4 with sequential left internal mammary artery to diagonal and left anterior descending coronary artery and sequential vein graft to posterior descending and posterior lateral branches of the circumflex coronary artery, endovascular vein harvest, and intraoperative transesophageal echocardiogram performed by anesthesia. Upon completion of surgery the patient was transferred to the cardiovascular intensive care unit where he was recovered, monitored hemodynamically, and where he progressed to cardiac rehabilitation phase 1. He was extubated, all lines, tubes, and drips were discontinued when appropriate, and was replaced transfer the patient to [address] [place] [address] for further monitoring and rehabilitation, however, there was no bed availability and the patient remained in the intensive care unit until discharge. He did explain's postoperative urinary retention requiring reinsertion of Tripp catheter and initiation of Flomax. His oxygen was titrated down, he continued to work with physical and occupational therapy, he was tolerating oral diet, his pain was controlled, and he was ready to be discharged to [facility] inpatient rehab on postoperative day #4. He received written and verbal instruction regarding his medications, activity restrictions, signs and symptoms requiring physician notification, and follow-up appointments. COMPLICATIONS: The patient experienced postoperative complications of acute blood loss anemia requiring transfusion, and urinary retention which was treated accordingly.. Patient Condition at Discharge: Stable Plan - Discharge Summary New Discharge Prescriptions: New Acetaminophen Tab [Tylenol] 650 mg PO Q6HR PRN tab PRN Reason: Pain Scale 6 To 10 Acetaminophen Tab [Tylenol] 325 mg PO Q6HR PRN tab PRN Reason: Pain Scale 1 To 5 Aspirin 325 mg PO DAILY tab Atorvastatin [Lipitor] 40 mg PO DAILY tab Clopidogrel [Plavix] 75 mg PO DAILY tab Furosemide [Lasix] 40 mg PO DAILY #7 tablet guaiFENesin [Mucinex] 1,200 mg PO Q12HR tablet.er Heparin Sodium,Porcine [Heparin Sodium] 5,000 unit SQ Q8HR vial Insulin Aspart [NovoLOG (formulary)] 7 unit SQ AC-TID vial Insulin Aspart [NovoLOG (formulary)] 0 unit SQ ACHS vial Insulin Detemir [Levemir] 20 unit SQ HS syr Ipratropium-Albuterol Nebulize [Duoneb 0.5 mg-3 mg/3 ml Soln] 3 ml INHALATION RT-QID ampul.neb Ipratropium-Albuterol Nebulize [Duoneb 0.5 mg-3 mg/3 ml Soln] 3 ml INHALATION RT-Q2H PRN ampul.neb PRN Reason: Shortness Of Breath Or Wheezing Lisinopril [Zestril] 2.5 mg PO 1200 tab Magnesium Hydroxide [Milk of Magnesia Concentrate] 2,400 mg PO BID PRN ml PRN Reason: Constipation Metoprolol Tartrate [Lopressor] 50 mg PO BID tab Pantoprazole [Protonix] 40 mg PO AC-BRKFST tablet.dr Singh-Docusate Sodium [Senokot-S] 2 each PO HS PRN tab PRN Reason: Constipation Tamsulosin [Flomax] 0.4 mg PO PC-BRKFST cap.er.24h Continue fluvoxaMINE [Luvox] 50 mg PO DAILY Levothyroxine Sodium [Synthroid] 75 mcg PO DAILY Discontinued Loratadine [Claritin] 10 mg PO DAILY Lisinopril [Zestril] 5 mg PO DAILY #0 Insulin Lispro [Admelog] See Protocol SQ AC-TID Insulin Degludec [Tresiba Flextouch U-100] 25 unit SQ HS Discharge Medication List fluvoxaMINE [Luvox] 50 mg PO DAILY 10/13/17 [History] Levothyroxine Sodium [Synthroid] 75 mcg PO DAILY 12/06/18 [History] Acetaminophen Tab [Tylenol] 325 mg PO Q6HR PRN tab 12/17/18 [Rx] Acetaminophen Tab [Tylenol] 650 mg PO Q6HR PRN tab 12/17/18 [Rx] Aspirin 325 mg PO DAILY tab 12/17/18 [Rx] Atorvastatin [Lipitor] 40 mg PO DAILY tab 12/17/18 [Rx] Clopidogrel [Plavix] 75 mg PO DAILY tab 12/17/18 [Rx] Furosemide [Lasix] 40 mg PO DAILY #7 tablet 12/17/18 [Rx] Heparin Sodium,Porcine [Heparin Sodium] 5,000 unit SQ Q8HR vial 12/17/18 [Rx] Insulin Aspart [NovoLOG (formulary)] 0 unit SQ ACHS vial 12/17/18 [Rx] Insulin Aspart [NovoLOG (formulary)] 7 unit SQ AC-TID vial 12/17/18 [Rx] Insulin Detemir [Levemir] 20 unit SQ HS syr 12/17/18 [Rx] Ipratropium-Albuterol Nebulize [Duoneb 0.5 mg-3 mg/3 ml Soln] 3 ml INHALATION RT -Q2H PRN ampul.neb 12/17/18 [Rx] Ipratropium-Albuterol Nebulize [Duoneb 0.5 mg-3 mg/3 ml Soln] 3 ml INHALATION RT -QID ampul.neb 12/17/18 [Rx] Lisinopril [Zestril] 2.5 mg PO 1200 tab 12/17/18 [Rx] Magnesium Hydroxide [Milk of Magnesia Concentrate] 2,400 mg PO BID PRN ml 12/17 [Rx] Metoprolol Tartrate [Lopressor] 50 mg PO BID tab 12/17/18 [Rx] Pantoprazole [Protonix] 40 mg PO AC-BRKFST tablet. 12/17/18 [Rx] Sennosides-Docusate Sodium [Senokot-S] 2 each PO HS PRN tab 12/17/18 [Rx] Tamsulosin [Flomax] 0.4 mg PO PC-BRKFST cap.er.24h 12/17/18 [Rx] guaiFENesin [Mucinex] 1,200 mg PO Q12HR tablet.er 12/17/18 [Rx] Follow up Appointment(s)/Referral(s): Sol Cerda MD [Primary Care Provider] - 1 Week (Please make follow up appointment upon discharge from inpatient rehab) Nigel Koch DO [Doctor of Osteopathic Medicine] - 2 Weeks (To follow at inpatient rehab, then make follow up appointment at discharge from inpatient rehab) Petros Thompson MD [STAFF PHYSICIAN] - 2 Weeks (To follow at rehab, then please make follow up appointment upon discharge from inpatient rehab) Kiko Horn MD [STAFF PHYSICIAN] - 01/09/19 12:45 pm Activity/Diet/Wound Care/Special Instructions: CONSULTS AT [facility] INPATIENT REHAB: Dr. Thompson from cardiology Dr. Koch from pulmonology DISCHARGE INSTRUCTIONS: 1. No driving for 4 weeks, or until physician gives their ok. 2. The patient should sleep in their own bed, no medical bed needed. 3. Stairs are not an issue. If the bedroom is upstairs, it is advised that the patient go up at night and down in the morning for the first week. Go slowly, using handrail and take 1 step at a time. 4. JORGE hose are to be worn for 30 days or until physician discontinues. 5. Heart hugger is to be worn 100% of the time until physician discontinues.( except when showering) 6. No lifting, pushing, or pulling more than 10 pounds for 12 weeks. The physician will advise of any restriction changes. 7. The patient is expected to continue the prescribed walking program. 8. Continue pain control per as needed orders. 9. Continue with incentive spirometry and splinting/heart hugger until otherwise directed by the physician. 10. Must shower daily using liquid antibacterial soap and a separate white washcloth for each individual incision. 11. Routine sternal incision care. No powders, lotions, ointments on incisions. 12. Please call surgeon/MULTIPLE SPINDLE ROUTER OPERATOR for temp greater than 101 F or purulent drainage from incisions. 13. All prescriptions given by surgeon for 30 days. Refills need to be filled through head wrestling coach/primary care physician. 14. A Red armband has been placed on the patient. It should be worn for 30 days post surgery and will be removed by the cardiac surgeons. If an ER visit is necessary, please make sure the number on the Red armband is called. REHAB/HOME HEALTH SERVICES TO PROVIDE: RN SKILLED HOME CARE SERVICES FOR POST-OP SURGICAL PATIENTS WITH THE FOLLOWING: Coronary Artery Bypass Surgery (CABG), Mitral Valve Replacement/ Repair ( MVR), Aortic Valve Replacement/Repair (AVR) RN TO CONTINUE EDUCATION FROM ``ROAD TO A HEALTH HEART PATIENT EDUCATION MANUAL (GIVEN TO PATIENT IN THE HOSPITAL) MEDICATION RECONCILIATION WITH EDUCATION NEEDED ON FIRST HOME VISIT EMPHASIZE IMPORTANCE OF WEARING BREAST SUPPORT/HEART HUGGER ENCOURAGE USE OF INCENTIVE SPIROMETER 10 X EVERY HOUR WHILE AWAKE ENCOURAGE UTILIZATION OF LOWER EXTREMITY COMPRESSION STOCKINGS/JORGE HOSE and ELEVATE LEGS ABOVE LEVEL OF HEART WHILE AT REST. ENCOURAGE AMBULATION 3-5x/day INCREASING TOLERATES, WHILE AVOID EXTREMES IN TEMPERATURE FREQUENCY: RN TO OPEN THE PATIENT WITHIN 24 HOURS OF DISCHARGE FROM [place]PATIENT [place] [facility] [place] TO [place]ISIT 2-3 X A WEEK FOR 4 WEEKS ESTABLISHED BY PATIENT NEEDS. LABORATORY: CBC, CMP TO BE DRAWN ON THE THIRD DAY HOME, (RAN STAT) FAX RESULTS TO [phone]. TELEHEALTH PARAMETERS: WEIGHT: NOTIFY MD OF WEIGHT GAIN OF 2 LBS IN 24 HOURS OR 5 LBS IN ONE WEEK HR: NOTIFY MD OF HR <55 BPM OR HR>100 BPM BP: NOTIFY MD IF BP <90/55 OR BP>140/100 O2 SAT: NOTIFY MD IF PO2<93% ON ROOM AIR SEND TELEHEALTH REPORT TO SUPERVISOR CUTTING AND SEWING ROOM AND CARDIOVASCULAR SURGEON THE FIRST WEEK OF CARE AND THEN BI-WEEKLY. PLEASE ADDITIONALLY COMMUNICATE ANY ABNORMALS AND NEW FINDINGS TO THE SURGEONS OFFICE. Discharge Disposition: DC/TRNS INTERMEDIATE CARE FAC
[2018-12-17 12:04] VITALS: TEMP 98
[2018-12-17 12:07] LABS: Glucose,Whole Blood 349 mg/dL (75-99)
[2018-12-17] MEDS: LISINOPRIL 2.5 MG TAB PO SCH (12:43)
[2018-12-17 15:09] VITALS: PULSE 87
[2018-12-17 15:29] VITALS: RESP 15
[2018-12-17] MEDS ORDERED: INSULIN DETEMIR 100 UNIT/ML 10 ML VIAL SQ SCH (21:00)
[2018-12-18] MEDS ORDERED: INSULIN ASPART 100 UNIT/ML 1 ML 10 ML VIAL SQ SCH (02:00)
[2018-12-18] MEDS ORDERED: FUROSEMIDE 10 MG/ML 4 ML VIAL IV SCH (09:00)
== END 2018-12-17 16:32 | DRG 233 ==
LOC: EC 20:59 → 2SICU 23:37
PROVIDERS: ADMIT Hospitalist; ATTEND Thoracic Surgery (Cardiothoracic Vascular Surgery)
PROC: 5A1935Z Respiratory Ventilation, Less than 24 Consecutive Hours (ICD-10-PCS; 2018-12-06)
PROC: 4A023N7 Measurement of Cardiac Sampling and Pressure, Left Heart, Percutaneous Approach (ICD-10-PCS; 2018-12-07)
PROC: B2111ZZ Fluoroscopy of Multiple Coronary Arteries using Low Osmolar Contrast (ICD-10-PCS; 2018-12-07)
PROC: B54DZZZ Ultrasonography of Bilateral Lower Extremity Veins (ICD-10-PCS; 2018-12-10)
PROC: 021109W Bypass Coronary Artery, Two Arteries from Aorta with Autologous Venous Tissue, Open Approach (ICD-10-PCS; 2018-12-13)
PROC: 06BQ4ZZ Excision of Left Saphenous Vein, Percutaneous Endoscopic Approach (ICD-10-PCS; 2018-12-13)
PROC: B24BZZ4 Ultrasonography of Heart with Aorta, Transesophageal (ICD-10-PCS; 2018-12-13)
PROC: 02110Z9 Bypass Coronary Artery, Two Arteries from Left Internal Mammary, Open Approach (ICD-10-PCS; principal; 2018-12-13 08:00)
PROC: 5A09457 Assistance with Respiratory Ventilation, 24-96 Consecutive Hours, Continuous Positive Airway Pressure (ICD-10-PCS; 2018-12-14)
DX: I21.4 Non-ST elevation (NSTEMI) myocardial infarction (principal); I50.23 Acute on chronic systolic (congestive) heart failure; J96.01 Acute respiratory failure with hypoxia; D62 Acute posthemorrhagic anemia; I16.1 Hypertensive emergency; J44.1 Chronic obstructive pulmonary disease with (acute) exacerbation; N17.9 Acute kidney failure, unspecified; N99.89 Other postprocedural complications and disorders of genitourinary system; I25.5 Ischemic cardiomyopathy; E11.649 Type 2 diabetes mellitus with hypoglycemia without coma; E11.65 Type 2 diabetes mellitus with hyperglycemia; E11.69 Type 2 diabetes mellitus with other specified complication; I11.0 Hypertensive heart disease with heart failure; I08.1 Rheumatic disorders of both mitral and tricuspid valves; I65.21 Occlusion and stenosis of right carotid artery; D72.829 Elevated white blood cell count, unspecified; E03.9 Hypothyroidism, unspecified; E66.9 Obesity, unspecified; E78.5 Hyperlipidemia, unspecified; F17.210 Nicotine dependence, cigarettes, uncomplicated; F31.9 Bipolar disorder, unspecified; F43.10 Post-traumatic stress disorder, unspecified; I25.10 Atherosclerotic heart disease of native coronary artery without angina pectoris; I25.2 Old myocardial infarction; I70.0 Atherosclerosis of aorta; M19.90 Unspecified osteoarthritis, unspecified site; R33.9 Retention of urine, unspecified; D64.9 Anemia, unspecified; Z68.29 Body mass index [BMI] 29.0-29.9, adult; Z79.4 Long term (current) use of insulin; Z79.890 Hormone replacement therapy; Z79.899 Other long term (current) drug therapy; Z86.73 Personal history of transient ischemic attack (TIA), and cerebral infarction without residual deficits
CPT/HCPCS: 36415; 36600; 71045; 71046; 71250; 80048; 80053; 80061; 80074; 81003; 82272; 82330; 82550; 82553; 82805; 82947; 83036; 83735; 83880; 84100; 84439; 84443; 84484; 85025; 85027; 85520; 85610; 85730; 86850; 86891; 86900; 86901; 86920; 87070; 87086; 93005; 93306; 93458; 93880; 93922; 93930; 93970; 94002; 94640; 94660; 96365; 96374; 96376; 99291

== ENCOUNTER 2019-02-06 12:29 | Observation (INO) | payer MEDICARE, OTHER ==
[2019-02-06] MEDS ORDERED: SODIUM CHLORIDE 0.9% 1,000 ML IV STA ×2 (12:41)
--- NOTE | 2019-02-06 13:05 | ED ---
Dizziness HPI - General Chief Complaint: Dizziness Stated Complaint: Fall Time Seen by Provider: 02/06/19 12:40 Source: EMS, RN notes reviewed, old records reviewed Mode of arrival: EMS Limitations: no limitations - History of Present Illness Initial Comments: This is a 68-year-old male the ER for evaluation. This patient presents today for evaluation regards to fall syncopal event near syncopal event. Patient became lightheaded and dizzy with leaving his doctor's office he fell forward landing on his face. Patient sustained severe nose pain bleeding from both nares. Patient has mild headache. Patient just recently had cardiac bypass almost exactly 2 months ago at this time. Was just released from rehab a week and a half ago. Patient has been having near syncopal events on a persistent basis since cardiac surgery. MD Complaint: dizziness, lightheadedness, near syncope (And fall) -: minutes(s) Timing: intermittent, waxing/waning Description: lightheadedness, off-balance, near-syncope History of Same: Yes History of Trauma: Yes Severity: moderate Improves With: nothing Worsens With: movement, position, exertion Associated Symptoms: syncope - Related Data Home Medications Medication Instructions Recorded Confirmed Levothyroxine Sodium [Synthroid] 75 mcg PO DAILY 12/06/18 02/06/19 INSULIN LISPRO (HumaLOG) [HumaLOG] See Protocol SQ ACHS 02/06/19 02/06/19 Insulin Degludec [Tresiba 25 units SQ HS 02/06/19 02/06/19 Flextouch U-100] Metoprolol Tartrate 12.5 mg PO DAILY 02/06/19 02/06/19 Prasugrel [Effient] 10 mg PO DAILY 02/06/19 02/06/19 Tamsulosin [Flomax] 0.4 mg PO HS 02/06/19 02/06/19 metFORMIN HCL 500 mg PO AC-BID 02/06/19 02/06/19 Previous Rx's Medication Instructions Recorded Atorvastatin [Lipitor] 40 mg PO DAILY tab 12/17/18 Clopidogrel [Plavix] 75 mg PO DAILY tab 12/17/18 Allergies Allergy/AdvReac Type Severity Reaction Status Date / Time No Known Allergies Allergy Verified 02/06/19 13:46 Review of Systems ROS Statement: Those systems with pertinent positive or pertinent negative responses have been documented in the HPI. ROS Other: All systems not noted in ROS Statement are negative. Past Medical History Past Medical History: Coronary Artery Disease (CAD), Heart Failure, CVA/TIA, Diabetes Mellitus, Hyperlipidemia, Hypertension, Myocardial Infarction ([place]), Syncope, Thyroid Disorder Additional Past Medical History / Comment(s): CT of the brain in September 2017 demonstrated old right lacunar infarct History of Any Multi-Drug Resistant Organisms: None Reported Past Surgical History: Orthopedic Surgery Additional Past Surgical History / Comment(s): right hip, Past Anesthesia/Blood Transfusion Reactions: No Reported Reaction Past Psychological History: Bipolar, PTSD Smoking Status: Former smoker Past Alcohol Use History: None Reported Past Drug Use History: None Reported General Exam Limitations: no limitations General appearance: alert, in no apparent distress Head exam: Present: normocephalic, normal inspection. Absent: atraumatic (significant nasal trauma w R deviation) Eye exam: Present: normal appearance, PERRL, EOMI. Absent: scleral icterus, conjunctival injection, periorbital swelling ENT exam: Present: normal exam, mucous membranes moist Neck exam: Present: normal inspection. Absent: tenderness, meningismus, lymphadenopathy Respiratory exam: Present: normal lung sounds bilaterally. Absent: respiratory distress, wheezes, rales, rhonchi, stridor Cardiovascular Exam: Present: regular rate, normal rhythm, normal heart sounds. Absent: systolic murmur, diastolic murmur, rubs, gallop, clicks GI/Abdominal exam: Present: soft, normal bowel sounds. Absent: distended, tenderness, guarding, rebound, rigid Extremities exam: Present: normal inspection, full ROM, normal capillary refill. Absent: tenderness, pedal edema, joint swelling, calf tenderness Back exam: Present: normal inspection Neurological exam: Present: alert, oriented X3, CN II-XII intact Psychiatric exam: Present: normal affect, normal mood Skin exam: Present: warm, dry, intact, normal color. Absent: rash Course Vital Signs 02/06/19 02/06/19 12:34 14:30 Temperature 97.6 F Pulse Rate 66 74 Respiratory 18 18 Rate Blood Pressure 124/61 131/65 O2 Sat by Pulse 99 100 Oximetry - Reevaluation(s) Reevaluation #1: 02/06/19 14:57 Medical record and surgical history is reviewed Reevaluation #2: 02/06/19 14:57 Patient without syncope or arrhythmia here in the ER - Consultations Consultation #1: (Dr. Palacioider regarding nasal fractures, he is aware EKG Findings - EKG Comments: EKG Findings:: EKG shows sinus rhythm rate of 65, CA 212, QRS 70, QTc 438 Medical Decision Making - Medical Decision Making 68 male the ER for evaluation. Patient presents today for evaluation of a syncopal event recurrent nasal fracture, patient be admitted secondary recent cardiac surgery for evaluation of a syncouple event arrhythmia. - Lab Data Result diagrams: 02/06/19 12:54 02/06/19 12:54 Lab Results 02/06/19 02/06/19 02/06/19 Range/Units 12:54 12:54 12:54 WBC 11.5 H (3.8-10.6) k/uL RBC 3.87 L (4.30-5.90) m/uL Hgb 11.1 L D (13.0-17.5) gm/dL Hct 35.1 L (39.0-53.0) % MCV 90.6 (80.0-100.0) fL MCH 28.6 (25.0-35.0) pg MCHC 31.6 (31.0-37.0) g/dL RDW 13.8 (11.5-15.5) % Plt Count 389 (150-450) k/uL Neutrophils % 82 % Lymphocytes % 10 % Monocytes % 5 % Eosinophils % 3 % Basophils % 1 % Neutrophils # 9.4 H (1.3-7.7) k/uL Lymphocytes # 1.1 (1.0-4.8) k/uL Monocytes # 0.6 (0-1.0) k/uL Eosinophils # 0.3 (0-0.7) k/uL Basophils # 0.1 (0-0.2) k/uL PT 10.6 (9.0-12.0) sec INR 1.0 (<1.2) APTT 20.3 L (22.0-30.0) sec Sodium 138 (137-145) mmol/L Potassium 5.3 H (3.5-5.1) mmol/L Chloride 103 (98-107) mmol/L Carbon Dioxide 24 (22-30) mmol/L Anion Gap 11 mmol/L BUN 24 H (9-20) mg/dL Creatinine 1.18 (0.66-1.25) mg/dL Est GFR (CKD-EPI)AfAm 74 (>60 ml/min/1.73 sqM) Est GFR (CKD-EPI)NonAf 64 (>60 ml/min/1.73 sqM) Glucose 128 H (74-99) mg/dL Calcium 9.5 (8.4-10.2) mg/dL Phosphorus 4.1 (2.5-4.5) mg/dL Magnesium 1.7 (1.6-2.3) mg/dL Total Bilirubin 0.4 (0.2-1.3) mg/dL AST 16 L (17-59) U/L ALT 21 (21-72) U/L Alkaline Phosphatase 73 (38-126) U/L Troponin I (0.000-0.034) ng/mL Total Protein 6.7 (6.3-8.2) g/dL Albumin 3.8 (3.5-5.0) g/dL 02/06/19 Range/Units 12:54 WBC (3.8-10.6) k/uL RBC (4.30-5.90) m/uL Hgb (13.0-17.5) gm/dL Hct (39.0-53.0) % MCV (80.0-100.0) fL MCH (25.0-35.0) pg MCHC (31.0-37.0) g/dL RDW (11.5-15.5) % Plt Count (150-450) k/uL Neutrophils % % Lymphocytes % % Monocytes % % Eosinophils % % Basophils % % Neutrophils # (1.3-7.7) k/uL Lymphocytes # (1.0-4.8) k/uL Monocytes # (0-1.0) k/uL Eosinophils # (0-0.7) k/uL Basophils # (0-0.2) k/uL PT (9.0-12.0) sec INR (<1.2) APTT (22.0-30.0) sec Sodium (137-145) mmol/L Potassium (3.5-5.1) mmol/L Chloride (98-107) mmol/L Carbon Dioxide (22-30) mmol/L Anion Gap mmol/L BUN (9-20) mg/dL Creatinine (0.66-1.25) mg/dL Est GFR (CKD-EPI)AfAm (>60 ml/min/1.73 sqM) Est GFR (CKD-EPI)NonAf (>60 ml/min/1.73 sqM) Glucose (74-99) mg/dL Calcium (8.4-10.2) mg/dL Phosphorus (2.5-4.5) mg/dL Magnesium (1.6-2.3) mg/dL Total Bilirubin (0.2-1.3) mg/dL AST (17-59) U/L ALT (21-72) U/L Alkaline Phosphatase (38-126) U/L Troponin I 0.037 H* (0.000-0.034) ng/mL Total Protein (6.3-8.2) g/dL Albumin (3.5-5.0) g/dL - Radiology Data Radiology results: report reviewed (CT brain C-spine and facial bones shows multiple angulated displaced nasal bone fractures as well as nasal septal fracture), image reviewed Critical Care Time Critical Care Time: Yes Total Critical Care Time: 31 Disposition Clinical Impression: Syncope and collapse, Nasal bone fracture, Dehydration Disposition: ADMITTED IP TO THIS [facility] Condition: Fair Is patient prescribed a controlled substance at d/c from ED?: No Referrals: Sol Cerda MD [Primary Care Provider] - 1-2 days
[2019-02-06 13:21] LABS: Albumin 3.8 g/dL (3.5-5.0); Calcium 9.5 mg/dL (8.4-10.2); Magnesium 1.7 mg/dL (1.6-2.3); Phosphorus 4.1 mg/dL (2.5-4.5); Potassium 5.3 mmol/L (3.5-5.1); Total Bilirubin 0.4 mg/dL (0.2-1.3); Total Protein 6.7 g/dL (6.3-8.2)
[2019-02-06 13:22] LABS: Basophils # (A) 0.1 k/uL (0-0.2); Basophils % (A) 1 %; Eosinophils # (A) 0.3 k/uL (0-0.7); Eosinophils % (A) 3 %; HCT 35.1 % (39.0-53.0); Lymphocytes # (A) 1.1 k/uL (1.0-4.8); Lymphocytes % (A) 10 %; MCH 28.6 pg (25.0-35.0); MCHC 31.6 g/dL (31.0-37.0); MCV 90.6 fL (80.0-100.0); Mean Platelet Volume 6.6; Monocytes # (A) 0.6 k/uL (0-1.0); Monocytes % (A) 5 %; Neutrophils # (A) 9.4 k/uL (1.3-7.7); Neutrophils % (A) 82 %; Platelet Count 389 k/uL (150-450); RBC 3.87 m/uL (4.30-5.90); RDW 13.8 % (11.5-15.5); WBC 11.5 k/uL (3.8-10.6)
[2019-02-06 13:24] LABS: HGB 11.1 gm/dL (13.0-17.5)
[2019-02-06 13:35] LABS: Prothrombin Time 10.6 sec (9.0-12.0)
--- NOTE | 2019-02-06 13:52 | CT ---
EXAMINATION TYPE: CT facial bones wo con DATE OF EXAM: 02/06/2019 COMPARISON: None HISTORY: 68-year-old male with pain after Fall TECHNIQUE: Contiguous axial scanning of the facial bones without IV contrast. Coronal reconstructions performed. CT DLP: 1054.5 (brain, cervical and facial) mGycm Automated exposure control for dose reduction was used. FINDINGS: There are comminuted, complex fractures of the bilateral nasal bones with overall rightward deviation of the nose and varying degrees of angulation and depression of multiple fracture fragments. Overlyi ng soft tissue swelling. There also seems to be a fracture of the anterior superior bony nasal septum, which 18 and axial imag e 53. Leftward nasal septal deviation is underlying. Tiny displaced fracture from the maxillary spine, axial image 38. Trace mucosal thickening scattered within the paranasal sinuses. The orbits and globes themselves appear intact. The zygomatic arches, mandible, and pterygoid plates appear intact. Extensive periodontal disease. IMPRESSION: 1. COMPLEX COMMINUTED FRACTURES OF THE BILATERAL NASAL BONES WITH OVERALL RIGHTWARD DEVIATION OF THE NOSE AND VERY DEGREES OF ANGULATION AND DEPRESSION OF MULTIPLE FRACTURE FRAGMENTS. 2. ADDITIONAL FRACTURE OF THE ANTERIOR SUPERIOR BONY NASAL SEPTUM AND A TINY DISPLACED FRACTURE FROM THE MAXILLARY SPINE. 3. EXTENSIVE PERIODONTAL DISEASE.
--- NOTE | 2019-02-06 14:03 | CT ---
EXAMINATION TYPE: CT brain cspine wo con DATE OF EXAM: 02/06/2019 COMPARISON: HISTORY: Fall CT DLP: 1054.5 (brain, cervical and facial) mGycm Automated exposure control for dose reduction was used. TECHNIQUE: CT scan of the head and cervical spine are performed without contrast. FINDINGS: There is no acute intracranial hemorrhage, mass effect, or midline shift identified. The ventricles and sulci are within normal limits in size. The globes are intact and the visualized sin uses are clear. Comminuted nasal bone fractures with displacement are noted, there is associated soft tissue swelling Cervical spine is visualized in its entirety from C1 through upper thoracic levels and demonstrates s atisfactory alignment without evidence of acute fracture or dislocation. Prevertebral soft tissue ap pears within normal limits. The C1-C2 articulation is unremarkable. Anterior first rib on the left shows a comminuted fracture, question the age, correlate for point tenderness. Multilevel degenerativ e disc changes are present. Multilevel foraminal encroachment. Atheromatous changes are present at th e carotid bifurcations. IMPRESSION: 1. There is no acute fracture or dislocation evident in the cervical spine. First left rib fracture a nteriorly as described of questionable age. 2. No acute intracranial hemorrhage, mass effect, or midline shift is seen. Comminuted nasal bone fra ctures are nondisplaced.
[2019-02-06 14:08] LABS: Partial Thromboplastin Time 20.3 sec (22.0-30.0)
[2019-02-06] MEDS ORDERED: NITROGLYCERIN SL TABS 0.4 MG TAB SUBLINGUAL PRN (15:05)
[2019-02-06] MEDS ORDERED: OXYMETAZOLINE 0.05% NASL SPRAY 1 SPRAY BOTTLE NASAL STA (15:18)
--- NOTE | 2019-02-06 19:41 | P.HPIM ---
History of Present Illness H&P Date: 02/06/19 Chief Complaint: Syncope Patient is a 68 old male with a known history of recent coronary artery bypass graft, coronary artery disease and CT, CHF with ejection fraction 30-35%, COPD and diabetes type 2 and other multiple medical problems was brought to the hospital status post fall secondary to dizziness and near syncope. Patient denied any loss of consciousness. Patient was at Dr. Cerda's office today and was leaving home. Patient was coming out of the clinic and became more lightheaded and fell forward landing on his face. Patient sustained severe pain and bleeding from both nostrils. Patient is having usually mild dizziness. Blood pressure is also on the lower side and currently on low-dose beta blockers at home. Denied any headache. No chest pain or shortness of breath. Denied any cough or sputum production. No fever or chills. Patient had CABG on 12/13/2018 and was discharged to rehab on 12/17/2018. Patient was discharged from the rehab on January 13. CT face showed complex comminuted fracture of the bilateral nasal bones with overall rightward deviation of the nose. Additional fracture of the anterior superior bony nasal septum and an extensive periodantal disease. CT cervical spine showed no acute fracture or dislocation evident in the cervical spine. First left rib fracture anteriorly with the age undetermined. Troponin 0.037 Review of Systems Constitutional: Patient denies any fever or chills . No generalized weakness or weight loss. Abdomen: Patient denied nausea vomiting and diarrhea and abdominal pain. Cardiovascular: Patient denies any chest pain or short of breath no palpitations. Respiratory: patient denied any cough is from production. No shortness of breath Neurologic: Patient denied any numbness or tingling headache. Musculoskeletal: Patient denies any complaints of joint swelling or deformity. NaSal pain and bleeding from both nostrils. Skin: Negative Psychiatric: Negative Endocrine: No heat or cold intolerance. No recent weight gain. Genitourinary: No dysuria or hematuria. All other 14 point ROS negative except the above Past Medical History Past Medical History: Coronary Artery Disease (CAD), Heart Failure, CVA/TIA, Diabetes Mellitus, Hyperlipidemia, Hypertension, Myocardial Infarction (CT), Sy ncope, Thyroid Disorder Additional Past Medical History / Comment(s): CT of the brain in September 2017 demonstrated old right lacunar infarct History of Any Multi-Drug Resistant Organisms: None Reported Past Surgical History: Orthopedic Surgery Additional Past Surgical History / Comment(s): right hip, Past Anesthesia/Blood Transfusion Reactions: No Reported Reaction Past Psychological History: Bipolar, PTSD Smoking Status: Former smoker Past Alcohol Use History: None Reported Past Drug Use History: None Reported - Past Family History Father Family Medical History: No Reported History Mother Family Medical History: No Reported History Medications and Allergies Home Medications Medication Instructions Recorded Confirmed Type Levothyroxine Sodium [Synthroid] 75 mcg PO DAILY 12/06/18 02/06/19 History Atorvastatin [Lipitor] 40 mg PO DAILY tab 12/17/18 02/06/19 Rx INSULIN LISPRO (HumaLOG) [HumaLOG] See Protocol SQ ACHS 02/06/19 02/06/19 History Insulin Degludec [Tresiba 25 units SQ HS 02/06/19 02/06/19 History Flextouch U-100] Metoprolol Tartrate 12.5 mg PO DAILY 02/06/19 02/06/19 History Prasugrel [Effient] 10 mg PO DAILY 02/06/19 02/06/19 History Tamsulosin [Flomax] 0.4 mg PO HS 02/06/19 02/06/19 History metFORMIN HCL 500 mg PO AC-BID 02/06/19 02/06/19 History Allergies Allergy/AdvReac Type Severity Reaction Status Date / Time No Known Allergies Allergy Verified 02/06/19 13:46 Physical Exam Vitals: Vital Signs Temp Pulse Resp BP Pulse Ox 02/06/19 16:00 97.8 F 67 18 122/74 99 02/06/19 14:30 74 18 131/65 100 02/06/19 12:34 97.6 F 66 18 124/61 99 Intake and Output 02/06/19 02/06/19 02/06/19 06:59 14:59 22:59 Other: Weight 88.178 kg PHYSICAL EXAMINATION: Patient is lying in the bed comfortably, no acute distress, awake alert and oriented.. HEENT: Normocephalic. Neck is supple. Pupils reactive. Bleeding from both nostrils. Tenderness.. Oral cavity is moist. Ears reveal no drainage. Neck reveals no JVD, carotid bruits, or thyromegaly. CHEST EXAMINATION: Trachea is central. Symmetrical expansion. Lung krishna clear to auscultation and percussion. CARDIAC: Normal S1, S2 with no gallops. No murmurs ABDOMEN: Soft. Bowel sounds normal. No organomegaly. No abdominal bruits. Extremities: reveal no edema. No clubbing or cyanosis Neurologically awake, alert, oriented x3 with well-coordinated movements. No focal deficits noted Skin: No rash or skin lesions. Psychiatric: Coperative. Nonsuicidal Musculoskeletal: No joint swelling or deformity. Normal range of motion. Results CBC & Chem 7: 02/06/19 12:54 02/06/19 12:54 Labs: Abnormal Lab Results - Last 24 Hours (Table) 02/06/19 02/06/19 02/06/19 Range/Units 12:54 12:54 12:54 WBC 11.5 H (3.8-10.6) k/uL RBC 3.87 L (4.30-5.90) m/uL Hgb 11.1 L D (13.0-17.5) gm/dL Hct 35.1 L (39.0-53.0) % Neutrophils # 9.4 H (1.3-7.7) k/uL APTT 20.3 L (22.0-30.0) sec Potassium 5.3 H (3.5-5.1) mmol/L BUN 24 H (9-20) mg/dL Glucose 128 H (74-99) mg/dL AST 16 L (17-59) U/L Troponin I (0.000-0.034) ng/mL 02/06/19 Range/Units 12:54 WBC (3.8-10.6) k/uL RBC (4.30-5.90) m/uL Hgb (13.0-17.5) gm/dL Hct (39.0-53.0) % Neutrophils # (1.3-7.7) k/uL APTT (22.0-30.0) sec Potassium (3.5-5.1) mmol/L BUN (9-20) mg/dL Glucose (74-99) mg/dL AST (17-59) U/L Troponin I 0.037 H* (0.000-0.034) ng/mL Thrombosis Risk Factor Assmnt - DVT/VTE Prophylaxis DVT/VTE Prophylaxis: Pharmacologic Prophylaxis ordered Assessment and Plan Assessment: Status post fall due to dizziness, near syncope. With fracture of bilateral nasal bones Rule out cardiac arrhythmia Mildly elevated troponin level Recent coronary artery bypass graft on 12/13/2018 Recent non-ST rate CT status post catheter with severe 2 vessel disease. Chronic CHF with ejection fraction 30-35% COPD with FEV1 of less than 30% Diabetes type 2 [id number] Hyperlipidemia Hypothyroidism Bipolar and PTSD History of nicotine dependence History of CVA/TIA without residual weakness DVT prophylaxis plan: Patient will be continued on telemetry monitoring. Wound care management. Continue with insulin sliding scale and home medications. 2-D echocardiogram was ordered. Follow up closely and further recommendations based on the clinical course. Cardiology was consulted. Time with Patient: Greater than 30
--- NOTE | 2019-02-06 19:53 | XR ---
EXAMINATION TYPE: XR chest 1V DATE OF EXAM: 02/06/2019 COMPARISON: 12/17/2018 HISTORY: Syncope TECHNIQUE: Single frontal view of the chest is obtained. FINDINGS: There is no heart failure nor confluent pneumonic infiltrate. Costophrenic angles are julio r. There are sternal wires. There are chest leads. IMPRESSION: No active cardiopulmonary disease. Normal heart. There is clearing of the pulmonary simi estion compared to old exam.
[2019-02-06 20:35] LABS: Glucose,Whole Blood 296 mg/dL (75-99)
[2019-02-06] MEDS: metFORMIN 500 MG TAB PO SCH (20:49)
[2019-02-06] MEDS: TAMSULOSIN 0.4 MG CAP.ER.24H PO SCH (20:49)
[2019-02-06] MEDS: INSULIN DETEMIR (LEVEMIR) 100 UNIT/ML SYR SQ SCH (20:49)
[2019-02-06] MEDS: METOPROLOL TARTRATE 12.5 MG TAB PO SCH (20:49)
[2019-02-06] MEDS: MORPHINE SULFATE 4 MG/ML SYRINGE IV PRN (20:49)
[2019-02-06] MEDS ORDERED: METOPROLOL TARTRATE 25 MG TAB PO SCH (21:00)
[2019-02-06] MEDS: HEPARIN SODIUM,PORCINE 5,000 UNIT/ML 1 ML VIAL SQ SCH (23:26)
[2019-02-06] MEDS: HYDROcodone/APAP 5-325MG 1 EACH TAB PO PRN (23:27)
[2019-02-07 06:10] LABS: Glucose,Whole Blood 154 mg/dL (75-99)
[2019-02-07] MEDS: LEVOTHYROXINE 75 MCG TAB PO SCH (06:23)
[2019-02-07] MEDS: metFORMIN 500 MG TAB PO SCH ×2 (06:23→16:14)
[2019-02-07 06:50] LABS: Basophils % (A) 1 %; Eosinophils # (A) 0.3 k/uL (0-0.7); Eosinophils % (A) 4 %; HCT 31.3 % (39.0-53.0); HGB 10.1 gm/dL (13.0-17.5); Lymphocytes # (A) 1.5 k/uL (1.0-4.8); Lymphocytes % (A) 21 %; MCHC 32.3 g/dL (31.0-37.0); Mean Platelet Volume 6.1; Monocytes # (A) 0.6 k/uL (0-1.0); Monocytes % (A) 9 %; Neutrophils # (A) 4.4 k/uL (1.3-7.7); Neutrophils % (A) 64 %; Platelet Count 327 k/uL (150-450); RBC 3.37 m/uL (4.30-5.90); RDW 13.7 % (11.5-15.5)
[2019-02-07 07:09] LABS: Anion Gap 7 mmol/L; Blood Urea Nitrogen 24 mg/dL (9-20); Calcium 8.8 mg/dL (8.4-10.2); Carbon Dioxide 22 mmol/L (22-30); Chloride 108 mmol/L (98-107); Cholesterol 85 mg/dL (<200); Glucose 134 mg/dL (74-99); HDL Cholesterol 22 mg/dL (40-60); LDL Cholesterol,Calculated 37 mg/dL (0-99); Potassium 4.9 mmol/L (3.5-5.1); Sodium 137 mmol/L (137-145); Triglycerides 131 mg/dL (<150)
[2019-02-07] MEDS: ASPIRIN 325 MG TAB PO SCH (08:33)
[2019-02-07] MEDS: PRASUGREL 10 MG TAB PO SCH (08:33)
[2019-02-07] MEDS: ATORVASTATIN 40 MG TAB PO SCH (08:33)
[2019-02-07] MEDS: METOPROLOL TARTRATE 12.5 MG TAB PO SCH (08:33)
[2019-02-07] MEDS: HEPARIN SODIUM,PORCINE 5,000 UNIT/ML 1 ML VIAL SQ SCH ×2 (08:34→16:14)
[2019-02-07] MEDS ORDERED: CLOPIDOGREL 75 MG TAB PO SCH (09:00)
--- NOTE | 2019-02-07 09:59 | P.CRDCN ---
History of Present Illness Consult date: 02/07/19 History of present illness: This is a 68-year-old gentleman with history of coronary artery disease and bypass surgery, cardiomyopathy with an ejection fraction of 30-35%, COPD and also type 2 diabetes mellitus who was admitted now to the hospital with an episode of fall and possible syncope. Patient sustained significant trauma to the face with nasal fracture. He was in his primary care physicians office yesterday. Apparently has been having dizziness mostly when he stands up. He was walking out of the office and apparently fell on his face and had dizziness before fall. Patient doesn't recall whether he lost consciousness or not. He denied any chest pain or shortness of breath. Since admission, it is noted that patient does have significant postural hypotension. No arrhythmias are noted. EKG showed sinus rhythm with diffuse T-wave changes. His troponins are borderline elevated but not consistent with acute myocardial infarction. Patient at the time of my examination seemed to be free of any chest pain. We'll going to add salt, had knee-high stockings and hold his beta sergio. If necessary. Florinef or midodrine can be added. We'll also get an echocardiogram to assess LV function. We'll continue to monitor for any arrhythmias. Review of Systems As per the chart Past Medical History Past Medical History: Coronary Artery Disease (CAD), Heart Failure, CVA/TIA, Diabetes Mellitus, Hyperlipidemia, Hypertension, Myocardial Infarction ([place]), Syncope, Thyroid Disorder Additional Past Medical History / Comment(s): CT of the brain in September 2017 demonstrated old right lacunar infarct Last Myocardial Infarction Date:: 12/06/2018 History of Any Multi-Drug Resistant Organisms: None Reported Past Surgical History: Orthopedic Surgery Additional Past Surgical History / Comment(s): right hip, Past Anesthesia/Blood Transfusion Reactions: No Reported Reaction Past Psychological History: Bipolar, PTSD Smoking Status: Former smoker Past Alcohol Use History: None Reported Past Drug Use History: None Reported - Past Family History Father Family Medical History: No Reported History Mother Family Medical History: No Reported History Medications and Allergies Home Medications Medication Instructions Recorded Confirmed Type Levothyroxine Sodium [Synthroid] 75 mcg PO DAILY 12/06/18 02/06/19 History Atorvastatin [Lipitor] 40 mg PO DAILY tab 12/17/18 02/06/19 Rx INSULIN LISPRO (HumaLOG) [HumaLOG] See Protocol SQ ACHS 02/06/19 02/06/19 History Insulin Degludec [Tresiba 25 units SQ HS 02/06/19 02/06/19 History Flextouch U-100] Metoprolol Tartrate 12.5 mg PO DAILY 02/06/19 02/06/19 History Prasugrel [Effient] 10 mg PO DAILY 02/06/19 02/06/19 History Tamsulosin [Flomax] 0.4 mg PO HS 02/06/19 02/06/19 History metFORMIN HCL 500 mg PO AC-BID 02/06/19 02/06/19 History Allergies Allergy/AdvReac Type Severity Reaction Status Date / Time No Known Allergies Allergy Verified 02/06/19 13:46 Physical Exam Vitals: Vital Signs Temp Pulse Pulse Pulse Resp BP BP 02/07/19 08:38 97.8 F 61 18 92/50 02/07/19 04:00 98.6 F 69 18 02/07/19 00:00 99.1 F 75 75 18 02/06/19 20:00 99.1 F 75 75 18 02/06/19 17:48 98.3 F 77 18 196/82 02/06/19 17:00 97.9 F 75 18 156/77 02/06/19 16:00 97.8 F 67 18 122/74 02/06/19 14:30 74 18 131/65 02/06/19 12:34 97.6 F 66 18 124/61 BP BP Pulse Ox 02/07/19 08:38 86/52 125/60 98 02/07/19 04:00 146/66 99 02/07/19 00:00 158/72 99 02/06/19 20:00 162/70 98 02/06/19 17:48 99 02/06/19 17:00 100 02/06/19 16:00 99 02/06/19 14:30 100 02/06/19 12:34 99 Intake and Output 02/06/19 02/07/19 02/07/19 22:59 06:59 14:59 Intake Total 240 Output Total 800 400 Balance -560 -400 Intake: Oral 240 Output: Urine 800 400 Other: Voiding Method Urinal Urinal # Voids 0 Weight 86.8 kg GENERAL EXAM: Patient is alert and oriented and doesn't appear to be in any acute distress HEENT: Normocephalic. Normal reaction of pupils, equal size, patient has significant trauma to the face including nose. There is a swelling and ecchymosis around the nose NECK: No masses, no nuchal rigidity. CHEST: No chest wall deformity. LUNGS: Equal air entry with no crackles or wheeze. HEART: S1 and S2 normal with no audible mumurs or gallops. Regular rhythm, femorals equal on both sides.. ABDOMEN: No hepatosplenomegaly, normal bowel sounds, no guarding or rigidity. SKIN: No rashes CENTRAL NERVOUS SYSTEM: No focal deficits. EXTREMITIES: No cyanosis, clubbing or edema. Results 02/07/19 06:27 02/07/19 06:27 Cardiac Enzymes 02/06/19 02/06/19 02/06/19 Range/Units 12:54 12:54 18:20 AST 16 L (17-59) U/L Troponin I 0.037 H* 0.048 H* (0.000-0.034) ng/mL 02/07/19 Range/Units 00:43 AST (17-59) U/L Troponin I 0.110 H* (0.000-0.034) ng/mL Coagulation 02/06/19 Range/Units 12:54 PT 10.6 (9.0-12.0) sec APTT 20.3 L (22.0-30.0) sec Lipids 02/07/19 Range/Units 06:27 Triglycerides 131 (<150) mg/dL Cholesterol 85 (<200) mg/dL HDL Cholesterol 22 L (40-60) mg/dL CBC 02/06/19 02/07/19 Range/Units 12:54 06:27 WBC 11.5 H 7.0 (3.8-10.6) k/uL RBC 3.87 L 3.37 L (4.30-5.90) m/uL Hgb 11.1 L D 10.1 L (13.0-17.5) gm/dL Hct 35.1 L 31.3 L (39.0-53.0) % Plt Count 389 327 (150-450) k/uL Comprehensive Metabolic Panel 02/06/19 02/07/19 Range/Units 12:54 06:27 Sodium 138 137 (137-145) mmol/L Potassium 5.3 H 4.9 (3.5-5.1) mmol/L Chloride 103 108 H (98-107) mmol/L Carbon Dioxide 24 22 (22-30) mmol/L BUN 24 H 24 H (9-20) mg/dL Creatinine 1.18 0.97 (0.66-1.25) mg/dL Glucose 128 H 134 H (74-99) mg/dL Calcium 9.5 8.8 (8.4-10.2) mg/dL AST 16 L (17-59) U/L ALT 21 (21-72) U/L Alkaline Phosphatase 73 (38-126) U/L Total Protein 6.7 (6.3-8.2) g/dL Albumin 3.8 (3.5-5.0) g/dL Current Medications Generic Name Dose Route Start Last Admin Trade Name Freq PRN Reason Stop Dose Admin Hydrocodone Bitart/Acetaminophen 1 each 02/06/19 21:29 02/06/19 23:27 [place] 5-325 PO 1 each Q6HR PRN Administration Pain Aspirin 325 mg 02/07/19 09:00 02/07/19 08:33 Aspirin PO 325 mg DAILY [facility] Administration Atorvastatin Calcium 40 mg 02/07/19 09:00 02/07/19 08:33 Lipitor PO 40 mg DAILY [facility] Administration Heparin Sodium (Porcine) 5,000 unit 02/07/19 00:00 02/07/19 08:34 Heparin SQ Not Given Q8HR [facility] Insulin Detemir 25 unit 02/06/19 21:00 02/06/19 20:49 Levemir SQ 25 unit HS [facility] Administration Levothyroxine Sodium 75 mcg 02/07/19 06:30 02/07/19 06:23 Synthroid PO 75 mcg DAILY@0630 [facility] Administration Metformin HCl 500 mg 02/06/19 17:30 02/07/19 06:23 Glucophage PO 500 mg AC-BID [facility] Administration Morphine Sulfate 4 mg 02/06/19 15:05 02/06/19 20:49 Morphine Sulfate (Inj) IV 4 mg Q4HR PRN Administration Chest Pain Nitroglycerin 0.4 mg 02/06/19 15:05 Nitrostat SUBLINGUAL Q5M PRN Chest Pain Prasugrel 10 mg 02/07/19 09:00 02/07/19 08:33 Effient PO 10 mg DAILY [facility] Administration Tamsulosin HCl 0.4 mg 02/06/19 21:00 02/06/19 20:49 Flomax PO 0.4 mg HS [facility] Administration Intake and Output 02/06/19 02/07/19 02/07/19 22:59 06:59 14:59 Intake Total 240 Output Total 800 400 Balance -560 -400 Intake: Oral 240 Output: Urine 800 400 Other: Voiding Method Urinal Urinal # Voids 0 Weight 86.8 kg 02/07/19 06:27 02/07/19 06:27 EKG Interpretations (text) Sinus rhythm with T-wave inversions Assessment and Plan (1) Near syncope Current Visit: Yes Status: Acute Code(s): R55 - SYNCOPE AND COLLAPSE SNOMED Code(s): 876142968 (2) Orthostatic hypotension Current Visit: Yes Status: Acute Code(s): I95.1 - ORTHOSTATIC HYPOTENSION SNOMED Code(s): 54161123 (3) Fall Current Visit: Yes Status: Acute Code(s): W19.XXXA - UNSPECIFIED FALL, INITIAL ENCOUNTER SNOMED Code(s): 5972838 (4) History of coronary artery bypass graft Current Visit: Yes Status: Acute Code(s): Z95.1 - PRESENCE OF AORTOCORONARY BYPASS GRAFT SNOMED Code(s): 436122530 (5) Ischemic cardiomyopathy Current Visit: Yes Status: Acute Code(s): I25.5 - ISCHEMIC CARDIOMYOPATHY SNOMED Code(s): 458787116 Plan: I will hold his metoprolol. Patient is also on Flomax. If necessary, that needs to be changed. I will add salt to the diet, uses knee-high stockings. If necessary, either Midodrin on Florinef to be added. ENT consult. We'll repeat the echocardiogram. Continue to monitor for any arrhythmias.
[2019-02-07 11:06] LABS: Glucose,Whole Blood 87 mg/dL (75-99)
[2019-02-07 16:09] LABS: Glucose,Whole Blood 167 mg/dL (75-99)
--- NOTE | 2019-02-07 17:30 | ECHOF ---
Referral Reason:syncope MEASUREMENTS -------- HEIGHT: 182.9 cm WEIGHT: 88.0 kg BP: 131/65 RVIDd: 2.5 cm (< 3.3) IVSd: 1.0 cm (0.6 - 1.1) LVIDd: 4.1 cm (3.9 - 5.3) LVPWd: 1.1 cm (0.6 - 1.1) IVSs: 1.6 cm LVIDs: 3.0 cm LVPWs: 1.7 cm LA Diam: 3.8 cm (2.7 - 3.8) Ao Diam: 3.0 cm (2.0 - 3.7) AV Cusp: 1.9 cm (1.5 - 2.6) MV EXCURSION: 21.085 mm (> 18.000) MV EF SLOPE: 156 mm/s (70 - 150) EPSS: 1.9 cm MV E Fritz: 1.04 m/s MV DecT: 301 ms MV A Fritz: 1.14 m/s MV E/A Ratio: 0.91 RAP: 5.00 mmHg RVSP: 34.51 mmHg FINDINGS -------- Sinus rhythm. This was a technically difficult study with suboptimal views. The left ventricular size is normal. There is borderline concentric left ventricular hypertrophy. Overall left ventricular systolic function is mildly impaired with, an EF between 45 - 50 %. Apica l anterior LV wall motion is hypokinetic. Apical septum LV wall motion is hypokinetic. The right ventricle is normal in size. The left atrial size is normal. The right atrial size is normal. Lumason used The aortic valve was not well visualized. The mitral valve is normal. Mild tricuspid regurgitation present. There is no evidence of pulmonary hypertension. The right v entricular systolic pressure, as measured by Doppler, is 34.51mmHg. The pulmonic valve was not well visualized. There is no pulmonic regurgitation present. The aortic root size is normal. IVC Not well visulized. There is no pericardial effusion. CONCLUSIONS -------- 1. Sinus rhythm. 2. This was a technically difficult study with suboptimal views. 3. The left ventricular size is normal. 4. There is borderline concentric left ventricular hypertrophy. 5. Overall left ventricular systolic function is mildly impaired with, an EF between 45 - 50 %. 6. Apical anterior LV wall motion is hypokinetic. 7. Apical septum LV wall motion is hypokinetic. 8. The left atrial size is normal. 9. Lumason used 10. The aortic valve was not well visualized. 11. The mitral valve is normal. 12. Mild tricuspid regurgitation present. 13. There is no evidence of pulmonary hypertension. 14. The pulmonic valve was not well visualized. 15. The aortic root size is normal. 16. IVC Not well visulized. 17. There is no pericardial effusion. DRIVE WORKER: Maddie Lafleur RDCS
[2019-02-07] MEDS: INSULIN DETEMIR (LEVEMIR) 100 UNIT/ML SYR SQ SCH (21:31)
[2019-02-07] MEDS: TAMSULOSIN 0.4 MG CAP.ER.24H PO SCH (21:31)
[2019-02-07 21:42] LABS: Glucose,Whole Blood 246 mg/dL (75-99)
[2019-02-08] MEDS: HEPARIN SODIUM,PORCINE 5,000 UNIT/ML 1 ML VIAL SQ SCH ×4 (00:35→21:44)
[2019-02-08] MEDS ORDERED: Magnesium Replacement Protocol 1 EACH MISC MISCELLANE PRN (01:00)
--- NOTE | 2019-02-08 01:05 | P.PN ---
Subjective Progress Note Date: 02/07/19 Principal diagnosis: Dizziness and near syncope Patient is a 68 old male with a known history of recent coronary artery bypass graft, coronary artery disease and [place], CHF with ejection fraction 30-35%, COPD and diabetes type 2 and other multiple medical problems was brought to the hospital status post fall secondary to dizziness and near syncope. Patient denied any loss of consciousness. Patient was at Dr. Cerda's office today and was leaving home. Patient was coming out of the clinic and became more lightheaded and fell forward landing on his face. Patient sustained severe pain and bleeding from both nostrils. Patient is having usually mild dizziness. Blood pressure is also on the lower side and currently on low-dose beta blockers at home. Denied any headache. No chest pain or shortness of breath. Denied any cough or sputum production. No fever or chills. Patient had CABG on 12/13/2018 and was discharged to rehab on 12/17/2018. Patient was discharged from the rehab on January 13. CT face showed complex comminuted fracture of the bilateral nasal bones with overall rightward deviation of the nose. Additional fracture of the anterior superior bony nasal septum and an extensive periodantal disease. CT cervical spine showed no acute fracture or dislocation evident in the cervical spine. First left rib fracture anteriorly with the age undetermined. Troponin 0.037, 0.048 and 0.110 02/07/2019 Patient initially complained of dizziness when trying to get up from bed. Dizziness is likely due to orthostatic hypotension. Beta blockers have been di scontinued. Cardiology is following. 2-D echocardiogram was ordered. will discontinue Flomax and monitor. ENT was consulted as well. No complaints of fever or chills. No nausea vomiting or abdominal pain. No chest pain or shortness of breath. Current medications reviewed. Objective - Vital Signs Vital signs: Vital Signs Temp 98.2 F 02/07/19 16:00 Pulse 65 02/07/19 20:00 Resp 18 02/07/19 20:00 BP 120/59 02/07/19 16:00 Pulse Ox 98 02/07/19 16:00 Intake & Output 02/07/19 02/07/19 02/08/19 06:59 18:59 06:59 Intake Total 222 Output Total 1200 1600 500 Balance -1200 -1378 -500 Weight 86.8 kg Intake: Oral 222 Output: Urine 1200 1600 500 Other: Voiding Method Urinal Urinal Urinal - Exam PHYSICAL EXAMINATION: Patient is lying in the bed comfortably, no acute distress, awake alert and oriented.. HEENT: Normocephalic. Neck is supple. Pupils reactive. Patient does have lacerated wound on the nostrils. Oral cavity is moist. Ears reveal no drainage. Neck reveals no JVD, carotid bruits, or thyromegaly. CHEST EXAMINATION: Trachea is central. Symmetrical expansion. Lung krishna clear to auscultation and percussion. CARDIAC: Normal S1, S2 with no gallops. No murmurs ABDOMEN: Soft. Bowel sounds normal. No organomegaly. No abdominal bruits. Extremities: reveal no edema. No clubbing or cyanosis Neurologically awake, alert, oriented x3 with well-coordinated movements. No focal deficits noted Skin: No rash or skin lesions. Psychiatric: Coperative. Nonsuicidal Musculoskeletal: No joint swelling or deformity. Normal range of motion. - Labs CBC & Chem 7: 02/07/19 06:27 02/07/19 06:27 Labs: Abnormal Lab Results - Last 24 Hours (Table) 02/07/19 02/07/19 02/07/19 Range/Units 00:43 06:08 06:27 RBC (4.30-5.90) m/uL Hgb (13.0-17.5) gm/dL Hct (39.0-53.0) % Chloride 108 H (98-107) mmol/L BUN 24 H (9-20) mg/dL Glucose 134 H (74-99) mg/dL POC Glucose (mg/dL) 154 H (75-99) mg/dL Troponin I 0.110 H* (0.000-0.034) ng/mL HDL Cholesterol 22 L (40-60) mg/dL 02/07/19 02/07/19 02/07/19 Range/Units 06:27 16:06 21:29 RBC 3.37 L (4.30-5.90) m/uL Hgb 10.1 L (13.0-17.5) gm/dL Hct 31.3 L (39.0-53.0) % Chloride (98-107) mmol/L BUN (9-20) mg/dL Glucose (74-99) mg/dL POC Glucose (mg/dL) 167 H 246 H (75-99) mg/dL Troponin I (0.000-0.034) ng/mL HDL Cholesterol (40-60) mg/dL Assessment and Plan Assessment: Status post fall due to dizziness, near syncope. Likely orthostatic hypotension. With fracture of bilateral nasal bones Ruled out cardiac arrhythmia Mildly elevated troponin level. Unlikely ACS. Recent coronary artery bypass graft on 12/13/2018 Recent non-ST rate [place] status post catheter with severe 2 vessel disease. 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 Beta blockers have been discontinued. Will hold Flomax and monitor for any urinary retention. Cardiology is on board. Wound care management. ENT consult. Continue with insulin sliding scale and home medications. 2-D echocardiogram was ordered. Follow up closely and further recommendations based on the clinical course. Time with Patient: Greater than 30
[2019-02-08] MEDS: metFORMIN 500 MG TAB PO SCH ×2 (06:39→17:26)
[2019-02-08] MEDS: LEVOTHYROXINE 75 MCG TAB PO SCH (06:39)
[2019-02-08 07:54] LABS: Basophils % (A) 1 %; Eosinophils # (A) 0.2 k/uL (0-0.7); Eosinophils % (A) 3 %; HCT 31.4 % (39.0-53.0); HGB 10.5 gm/dL (13.0-17.5); Lymphocytes % (A) 13 %; MCH 30.8 pg (25.0-35.0); MCHC 33.5 g/dL (31.0-37.0); MCV 91.9 fL (80.0-100.0); Mean Platelet Volume 6.3; Monocytes # (A) 0.5 k/uL (0-1.0); Monocytes % (A) 7 %; Neutrophils # (A) 5.9 k/uL (1.3-7.7); Neutrophils % (A) 75 %; Platelet Count 331 k/uL (150-450); RBC 3.42 m/uL (4.30-5.90); RDW 13.8 % (11.5-15.5); WBC 7.8 k/uL (3.8-10.6)
[2019-02-08 08:10] LABS: Anion Gap 8 mmol/L; Blood Urea Nitrogen 21 mg/dL (9-20); Calcium 8.9 mg/dL (8.4-10.2); Carbon Dioxide 23 mmol/L (22-30); Chloride 106 mmol/L (98-107); Glucose 144 mg/dL (74-99); Magnesium 1.6 mg/dL (1.6-2.3); Potassium 4.4 mmol/L (3.5-5.1); Sodium 137 mmol/L (137-145)
[2019-02-08] MEDS: ASPIRIN 325 MG TAB PO SCH (08:19)
[2019-02-08] MEDS: ATORVASTATIN 40 MG TAB PO SCH (08:19)
[2019-02-08] MEDS: HYDROcodone/APAP 5-325MG 1 EACH TAB PO PRN ×2 (08:19→19:42)
[2019-02-08] MEDS: PRASUGREL 10 MG TAB PO SCH (08:20)
[2019-02-08] MEDS: SODIUM CHLORIDE 0.9% 1,000 ML IV SCH ×2 (11:00→21:42)
[2019-02-08 11:01] LABS: Glucose,Whole Blood 213 mg/dL (75-99)
[2019-02-08] MEDS: MAGNESIUM SULFATE-D5W PMX 1 GM in DEXTROSE/WATER 1 100ML.BAG IVPB SCH ×2 (11:52→13:14)
[2019-02-08 17:16] LABS: Glucose,Whole Blood 199 mg/dL (75-99)
[2019-02-08] MEDS: INSULIN ASPART (NovoLOG) 100 UNIT/ML VIAL SQ SCH ×2 (17:25→21:42)
[2019-02-08 21:04] LABS: Glucose,Whole Blood 286 mg/dL (75-99)
[2019-02-08] MEDS: INSULIN DETEMIR (LEVEMIR) 100 UNIT/ML SYR SQ SCH (21:40)
--- NOTE | 2019-02-09 00:38 | P.PN ---
Subjective Progress Note Date: 02/08/19 Principal diagnosis: Dizziness and near syncope Patient is a 68 old male with a known history of recent coronary artery bypass graft, coronary artery disease and [place], CHF with ejection fraction 30-35%, COPD and diabetes type 2 and other multiple medical problems was brought to the hospital status post fall secondary to dizziness and near syncope. Patient denied any loss of consciousness. Patient was at Dr. Cerda's office today and was leaving home. Patient was coming out of the clinic and became more lightheaded and fell forward landing on his face. Patient sustained severe pain and bleeding from both nostrils. Patient is having usually mild dizziness. Blood pressure is also on the lower side and currently on low-dose beta blockers at home. Denied any headache. No chest pain or shortness of breath. Denied any cough or sputum production. No fever or chills. Patient had CABG on 12/13/2018 and was discharged to rehab on 12/17/2018. Patient was discharged from the rehab on January 13. CT face showed complex comminuted fracture of the bilateral nasal bones with overall rightward deviation of the nose. Additional fracture of the anterior superior bony nasal septum and an extensive periodantal disease. CT cervical spine showed no acute fracture or dislocation evident in the cervical spine. First left rib fracture anteriorly with the age undetermined. Troponin 0.037, 0.048 and 0.110 02/07/2019 Patient initially complained of dizziness when trying to get up from bed. Dizziness is likely due to orthostatic hypotension. Beta blockers have been di scontinued. Cardiology is following. 2-D echocardiogram was ordered. will discontinue Flomax and monitor. ENT was consulted as well. No complaints of fever or chills. No nausea vomiting or abdominal pain. No chest pain or shortness of breath. 02/08/2019 Patient is still complaining of dizziness. Orthostatic vitals every shift was ordered. Cardiology is following. Considering Midodrin. Blood pressure is otherwise fairly stable. No hypotension. Flomax has been discontinued. ENT wants to see the patient as an outpatient. Current medications reviewed. Objective - Vital Signs Vital signs: Vital Signs Temp 98.7 F 02/08/19 20:00 Pulse 87 02/08/19 20:00 Resp 18 02/08/19 20:00 BP 167/75 02/08/19 20:00 Pulse Ox 97 02/08/19 20:00 Intake & Output 02/08/19 02/08/19 02/09/19 06:59 18:59 06:59 Intake Total 422 868 0587 Output Total 1200 Balance -992 094 8406 Intake: Intake, IV Titration 1000 Amount Sodium Chloride 0.9% 1, 1000 000 ml @ 100 mls/hr IV . Q10H [facility] Rx#:[id number] Oral 480 520 240 Output: Urine 1200 Other: Voiding Method Urinal Urinal Urinal # Voids 2 1 2 - Exam PHYSICAL EXAMINATION: Patient is lying in the bed comfortably, no acute distress, awake alert and williams ented.. HEENT: Normocephalic. Neck is supple. Pupils reactive. Patient does have lacerated wound on the nostrils. Oral cavity is moist. Ears reveal no drainage. Neck reveals no JVD, carotid bruits, or thyromegaly. CHEST EXAMINATION: Trachea is central. Symmetrical expansion. Lung krishna clear to auscultation and percussion. CARDIAC: Normal S1, S2 with no gallops. No murmurs ABDOMEN: Soft. Bowel sounds normal. No organomegaly. No abdominal bruits. Extremities: reveal no edema. No clubbing or cyanosis Neurologically awake, alert, oriented x3 with well-coordinated movements. No focal deficits noted Skin: No rash or skin lesions. Psychiatric: Coperative. Nonsuicidal Musculoskeletal: No joint swelling or deformity. Normal range of motion. - Labs CBC & Chem 7: 02/08/19 07:08 02/08/19 07:08 Labs: Abnormal Lab Results - Last 24 Hours (Table) 02/08/19 02/08/19 02/08/19 Range/Units 07:08 07:08 11:00 RBC 3.42 L (4.30-5.90) m/uL Hgb 10.5 L (13.0-17.5) gm/dL Hct 31.4 L (39.0-53.0) % BUN 21 H (9-20) mg/dL Glucose 144 H (74-99) mg/dL POC Glucose (mg/dL) 213 H (75-99) mg/dL 02/08/19 02/08/19 Range/Units 17:14 20:51 RBC (4.30-5.90) m/uL Hgb (13.0-17.5) gm/dL Hct (39.0-53.0) % BUN (9-20) mg/dL Glucose (74-99) mg/dL POC Glucose (mg/dL) 199 H 286 H (75-99) mg/dL Assessment and Plan Assessment: Status post fall due to dizziness, near syncope. Likely orthostatic hypotension . With fracture of bilateral nasal bones Ruled out cardiac arrhythmia Mildly elevated troponin level. Unlikely ACS. Recent coronary artery bypass graft on 12/13/2018 Recent non-ST rate [place] status post catheter with severe 2 vessel disease. 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 Beta blockers have been discontinued. Will hold Flomax and monitor for any urinary retention. Cardiology is on board. Wound care management. ENT consult. Continue with insulin sliding scale and home medications. 2-D echocardiogram was ordered. Follow up closely and further recommendations based on the clinical course. Time with Patient: Greater than 30
[2019-02-09 06:56] LABS: Glucose,Whole Blood 155 mg/dL (75-99)
[2019-02-09] MEDS: SODIUM CHLORIDE 0.9% 1,000 ML IV SCH ×2 (06:57→17:31)
[2019-02-09] MEDS: INSULIN ASPART (NovoLOG) 100 UNIT/ML VIAL SQ SCH ×4 (06:58→21:23)
[2019-02-09] MEDS: metFORMIN 500 MG TAB PO SCH ×2 (07:10→17:39)
[2019-02-09] MEDS: LEVOTHYROXINE 75 MCG TAB PO SCH (07:10)
[2019-02-09] MEDS: ATORVASTATIN 40 MG TAB PO SCH (10:29)
[2019-02-09] MEDS: HYDROcodone/APAP 5-325MG 1 EACH TAB PO PRN ×2 (10:29→19:47)
[2019-02-09] MEDS: HEPARIN SODIUM,PORCINE 5,000 UNIT/ML 1 ML VIAL SQ SCH ×3 (10:29→23:23)
[2019-02-09 10:52] LABS: Glucose,Whole Blood 221 mg/dL (75-99)
[2019-02-09] MEDS: MIDODRINE 5 MG TAB PO SCH ×2 (12:53→17:39)
[2019-02-09] MEDS: PRASUGREL 10 MG TAB PO SCH (13:31)
[2019-02-09] MEDS: ASPIRIN 325 MG TAB PO SCH (13:31)
[2019-02-09 16:22] LABS: Glucose,Whole Blood 171 mg/dL (75-99)
[2019-02-09 20:58] LABS: Glucose,Whole Blood 194 mg/dL (75-99)
[2019-02-09] MEDS: INSULIN DETEMIR (LEVEMIR) 100 UNIT/ML SYR SQ SCH (21:23)
[2019-02-10 06:07] LABS: Glucose,Whole Blood 124 mg/dL (75-99)
[2019-02-10] MEDS: SODIUM CHLORIDE 0.9% 1,000 ML IV SCH ×3 (06:42→21:29)
[2019-02-10] MEDS: MIDODRINE 5 MG TAB PO SCH ×3 (06:55→17:39)
[2019-02-10] MEDS: metFORMIN 500 MG TAB PO SCH ×2 (06:56→17:39)
[2019-02-10] MEDS: LEVOTHYROXINE 75 MCG TAB PO SCH (06:56)
[2019-02-10] MEDS: INSULIN ASPART (NovoLOG) 100 UNIT/ML VIAL SQ SCH ×4 (06:56→21:31)
[2019-02-10 07:05] LABS: Basophils % (A) 0 %; Eosinophils # (A) 0.4 k/uL (0-0.7); Eosinophils % (A) 5 %; HCT 32.9 % (39.0-53.0); HGB 10.5 gm/dL (13.0-17.5); Lymphocytes # (A) 1.2 k/uL (1.0-4.8); Lymphocytes % (A) 15 %; MCH 28.8 pg (25.0-35.0); MCHC 31.8 g/dL (31.0-37.0); MCV 90.3 fL (80.0-100.0); Mean Platelet Volume 7.1; Monocytes # (A) 0.5 k/uL (0-1.0); Monocytes % (A) 6 %; Neutrophils % (A) 73 %; Platelet Count 350 k/uL (150-450); RBC 3.65 m/uL (4.30-5.90); RDW 13.9 % (11.5-15.5); WBC 8.2 k/uL (3.8-10.6)
[2019-02-10 07:21] LABS: Anion Gap 8 mmol/L; Blood Urea Nitrogen 16 mg/dL (9-20); Carbon Dioxide 23 mmol/L (22-30); Chloride 107 mmol/L (98-107); Glucose 120 mg/dL (74-99); Magnesium 1.6 mg/dL (1.6-2.3); Potassium 4.5 mmol/L (3.5-5.1); Sodium 138 mmol/L (137-145)
[2019-02-10] MEDS: HEPARIN SODIUM,PORCINE 5,000 UNIT/ML 1 ML VIAL SQ SCH ×3 (08:07→23:47)
[2019-02-10] MEDS: ASPIRIN 81 MG PO SCH (08:09)
[2019-02-10] MEDS: METOPROLOL TARTRATE 12.5 MG TAB PO SCH (08:09)
[2019-02-10] MEDS: ATORVASTATIN 40 MG TAB PO SCH (08:09)
[2019-02-10] MEDS: HYDROcodone/APAP 5-325MG 1 EACH TAB PO PRN ×2 (08:10→17:39)
[2019-02-10] MEDS: MORPHINE SULFATE 4 MG/ML SYRINGE IV PRN ×2 (08:12→20:06)
[2019-02-10] MEDS: CLOPIDOGREL 75 MG TAB PO SCH (08:29)
[2019-02-10 11:31] LABS: Glucose,Whole Blood 139 mg/dL (75-99)
--- NOTE | 2019-02-10 13:19 | PN ---
PROGRESS NOTE Mr. Lozano is gentleman with orthostatic hypotension. His blood pressure seems to drop from about 124 to 94. I am recommending that we continue the current medications including an midodrine. It will take at least 2-3 days for midodrine to have the full affect. The patient is not symptomatic. I am asking him to sit up in a chair more often than lying down. Vital signs stable. S1, S2 heard normally. Lungs reveal improved air entry. Abdomen and lower extremity exam unchanged. This patient had orthostatic hypotension with a fall and he hurt his face, has nasal fractures. But now, he seems to be doing better. We will gradually increase activity but have him sit up in the chair more often. We will continue midodrine and also we will decrease his IV fluids now to about KVO and see how he does. Plan is to increase activity and plan for discharge if his standing blood pressure is more than 100 consistently. Discussed my thoughts in detail with the patient. FLORIAN / CODIE: [id number] /
--- NOTE | 2019-02-10 16:09 | P.GSCN ---
History of Present Illness Consult date: 02/10/19 Reason for Consult: Facial trauma Requesting physician: Mariano Sanchez History of present illness: This is a 68-year-old white male who had a fall and struck his face to the floor. CAT scan of the face demonstrates nasal bone and anterior nasal spine fracture. No other facial fractures are noted. Patient tells me that he has some mild discomfort in the nose and that he thinks his nose looks fine. He tells me straight up that he does not wish to have any nasal surgery for correction of the fracture. He had a nosebleed at the time of the injury but he has had no bleeding. Patient tells me that he can breathe adequately through his nose. Review of Systems - Constitutional Reports lethargy - EENT Ears, nose, mouth and throat: Reports dental pain - Cardiovascular Denies decreased exercise tolerance - Respiratory Denies dyspnea - Gastrointestinal Denies belching - Genitourinary Denies discharge - Musculoskeletal Reports fractures - Integumentary Denies brittle nails - Neurological Denies ataxia - Psychiatric Denies change in appetite - Endocrine Denies excessive sweating - Hematologic/Lymphatic Denies easy bleeding - Allergic/Immunologic Denies allergic rhinitis Past Medical History Past Medical History: Coronary Artery Disease (CAD), Heart Failure, CVA/TIA, Diabetes Mellitus, Hyperlipidemia, Hypertension, Myocardial Infarction (IA), Syncope, Thyroid Disorder Additional Past Medical History / Comment(s): CT of the brain in September 2017 demonstrated old right lacunar infarct Last Myocardial Infarction Date:: 12/06/2018 History of Any Multi-Drug Resistant Organisms: None Reported Past Surgical History: Orthopedic Surgery Additional Past Surgical History / Comment(s): right hip, Past Anesthesia/Blood Transfusion Reactions: No Reported Reaction Past Psychological History: Bipolar, PTSD Smoking Status: Former smoker Past Alcohol Use History: None Reported Past Drug Use History: None Reported - Past Family History Father Family Medical History: No Reported History Mother Family Medical History: No Reported History Medications and Allergies Home Medications Medication Instructions Recorded Confirmed Type Levothyroxine Sodium [Synthroid] 75 mcg PO DAILY 12/06/18 02/06/19 History Atorvastatin [Lipitor] 40 mg PO DAILY tab 12/17/18 02/06/19 Rx INSULIN LISPRO (HumaLOG) [HumaLOG] See Protocol SQ ACHS 02/06/19 02/06/19 History Insulin Degludec [Tresiba 25 units SQ HS 02/06/19 02/06/19 History Flextouch U-100] Metoprolol Tartrate 12.5 mg PO DAILY 02/06/19 02/06/19 History Prasugrel [Effient] 10 mg PO DAILY 02/06/19 02/06/19 History Tamsulosin [Flomax] 0.4 mg PO HS 02/06/19 02/06/19 History metFORMIN HCL 500 mg PO AC-BID 02/06/19 02/06/19 History Allergies Allergy/AdvReac Type Severity Reaction Status Date / Time No Known Allergies Allergy Verified 02/06/19 13:46 Surgical - Exam Osteopathic Statement: *. No significant issues noted on an osteopathic structural exam other than those noted in the History and Physical/Consult. Vital Signs Temp Pulse Resp BP Pulse Ox 97.6 F 66 18 124/61 99 02/06/19 12:34 02/06/19 12:34 02/06/19 12:34 02/06/19 12:34 02/06/19 12:34 - General well developed, well nourished, no distress - Eyes Facial swelling is noted abrasion over the nose and nasal swelling seen. Nose is deviated to the right. Septum is deviated. PERRL, normal ocular movement - ENT normal pinna, no normal nares, no normal mucosa - Neck no masses, no bruits - Neurologic normal coordination, normal sensation - Musculoskeletal normal gait, normal posture - Psychiatric oriented to time, oriented to person, oriented to place, speech is normal Results - Labs 02/10/19 06:38 02/10/19 06:38 Abnormal Lab Results - Last 24 Hours (Table) 02/09/19 02/09/19 02/10/19 Range/Units 16:21 20:57 05:58 RBC (4.30-5.90) m/uL Hgb (13.0-17.5) gm/dL Hct (39.0-53.0) % Glucose (74-99) mg/dL POC Glucose (mg/dL) 171 H 194 H 124 H (75-99) mg/dL 02/10/19 02/10/19 02/10/19 Range/Units 06:38 06:38 11:29 RBC 3.65 L (4.30-5.90) m/uL Hgb 10.5 L (13.0-17.5) gm/dL Hct 32.9 L (39.0-53.0) % Glucose 120 H (74-99) mg/dL POC Glucose (mg/dL) 139 H (75-99) mg/dL Diabetes panel 02/10/19 Range/Units 06:38 Sodium 138 (137-145) mmol/L Potassium 4.5 (3.5-5.1) mmol/L Chloride 107 (98-107) mmol/L Carbon Dioxide 23 (22-30) mmol/L BUN 16 (9-20) mg/dL Creatinine 0.87 (0.66-1.25) mg/dL Glucose 120 H (74-99) mg/dL Calcium 9.0 (8.4-10.2) mg/dL Calcium panel 02/10/19 Range/Units 06:38 Calcium 9.0 (8.4-10.2) mg/dL Pituitary panel 02/10/19 Range/Units 06:38 Sodium 138 (137-145) mmol/L Potassium 4.5 (3.5-5.1) mmol/L Chloride 107 (98-107) mmol/L Carbon Dioxide 23 (22-30) mmol/L BUN 16 (9-20) mg/dL Creatinine 0.87 (0.66-1.25) mg/dL Glucose 120 H (74-99) mg/dL Calcium 9.0 (8.4-10.2) mg/dL Adrenal panel 02/10/19 Range/Units 06:38 Sodium 138 (137-145) mmol/L Potassium 4.5 (3.5-5.1) mmol/L Chloride 107 (98-107) mmol/L Carbon Dioxide 23 (22-30) mmol/L BUN 16 (9-20) mg/dL Creatinine 0.87 (0.66-1.25) mg/dL Glucose 120 H (74-99) mg/dL Calcium 9.0 (8.4-10.2) mg/dL Assessment and Plan Plan: This patient has a nasal bone fracture but tells me that he does not wish to have this corrected. He also has a deviated nasal septum but tells me he can breathe through his nose adequately. Him and his state clearly that he does not wish to have anything done to his nose. Therefore, since they request that nothing be done I will see him on an as-needed basis. I've given him my card and is to call me on an outpatient basis if correction is desired. Time with Patient: Greater than 30
[2019-02-10 16:45] LABS: Glucose,Whole Blood 231 mg/dL (75-99)
[2019-02-10 20:34] LABS: Glucose,Whole Blood 241 mg/dL (75-99)
[2019-02-10] MEDS: INSULIN DETEMIR (LEVEMIR) 100 UNIT/ML SYR SQ SCH (21:31)
[2019-02-11] MEDS: MIDODRINE 5 MG TAB PO SCH ×3 (06:06→19:29)
[2019-02-11] MEDS: metFORMIN 500 MG TAB PO SCH ×2 (06:06→19:29)
[2019-02-11] MEDS: LEVOTHYROXINE 75 MCG TAB PO SCH (06:06)
[2019-02-11] MEDS: INSULIN ASPART (NovoLOG) 100 UNIT/ML VIAL SQ SCH ×4 (06:06→22:12)
[2019-02-11 06:11] LABS: Glucose,Whole Blood 146 mg/dL (75-99)
[2019-02-11 07:04] LABS: Basophils % (A) 0 %; Eosinophils # (A) 0.4 k/uL (0-0.7); Eosinophils % (A) 5 %; HCT 32.6 % (39.0-53.0); HGB 10.5 gm/dL (13.0-17.5); Lymphocytes # (A) 1.5 k/uL (1.0-4.8); Lymphocytes % (A) 20 %; MCH 29.1 pg (25.0-35.0); MCHC 32.1 g/dL (31.0-37.0); MCV 90.7 fL (80.0-100.0); Mean Platelet Volume 6.5; Monocytes # (A) 0.5 k/uL (0-1.0); Monocytes % (A) 7 %; Neutrophils % (A) 67 %; Platelet Count 337 k/uL (150-450); RDW 13.9 % (11.5-15.5); WBC 7.4 k/uL (3.8-10.6)
[2019-02-11 07:32] LABS: Anion Gap 7 mmol/L; Blood Urea Nitrogen 18 mg/dL (9-20); Calcium 8.9 mg/dL (8.4-10.2); Carbon Dioxide 24 mmol/L (22-30); Chloride 106 mmol/L (98-107); Glucose 138 mg/dL (74-99); Potassium 4.7 mmol/L (3.5-5.1); Sodium 137 mmol/L (137-145)
[2019-02-11] MEDS: CLOPIDOGREL 75 MG TAB PO SCH (08:50)
[2019-02-11] MEDS: ASPIRIN 81 MG PO SCH (08:50)
[2019-02-11] MEDS: METOPROLOL TARTRATE 12.5 MG TAB PO SCH (08:50)
[2019-02-11] MEDS: ATORVASTATIN 40 MG TAB PO SCH (08:50)
[2019-02-11 11:51] LABS: Glucose,Whole Blood 228 mg/dL (75-99)
[2019-02-11] MEDS: HEPARIN SODIUM,PORCINE 5,000 UNIT/ML 1 ML VIAL SQ SCH ×2 (12:05→19:28)
[2019-02-11] MEDS: SODIUM CHLORIDE 0.9% 1,000 ML IV SCH ×2 (12:07→20:41)
--- NOTE | 2019-02-11 13:09 | PN ---
PROGRESS NOTE Mr. Lozano has type 2 diabetes, autonomic neuropathy, who came in with orthostatic hypotension and fall. He also has had recent aortocoronary bypass surgery. He is maintaining sinus rhythm. His orthostatic changes have improved remarkably. He is on midodrine 5 mg t.i.d., which we will continue. Vital signs are stable, S1-S2 heard normally with short systolic murmur. Lungs reveal improved air entry. Abdomen and lower extremity exam unchanged. Plan is to continue current medications and I have advised the patient to change positions very slowly. He can be discharged later on today and follow up with Dr. Thompson within the next 7-14 days. MMODL / IJN: [id number] /
[2019-02-11 16:22] LABS: Glucose,Whole Blood 233 mg/dL (75-99)
[2019-02-11] MEDS: HYDROcodone/APAP 5-325MG 1 EACH TAB PO PRN (20:35)
[2019-02-11 20:43] LABS: Glucose,Whole Blood 232 mg/dL (75-99)
[2019-02-11] MEDS: INSULIN DETEMIR (LEVEMIR) 100 UNIT/ML SYR SQ SCH (22:12)
--- NOTE | 2019-02-11 23:56 | P.PN ---
Subjective Progress Note Date: 02/09/19 Principal diagnosis: Dizziness and near syncope Patient is a 68 old male with a known history of recent coronary artery bypass graft, coronary artery disease and [place], CHF with ejection fraction 30-35%, COPD and diabetes type 2 and other multiple medical problems was brought to the hospital status post fall secondary to dizziness and near syncope. Patient denied any loss of consciousness. Patient was at Dr. Cerda's office today and was leaving home. Patient was coming out of the clinic and became more lightheaded and fell forward landing on his face. Patient sustained severe pain and bleeding from both nostrils. Patient is having usually mild dizziness. Blood pressure is also on the lower side and currently on low-dose beta blockers at home. Denied any headache. No chest pain or shortness of breath. Denied any cough or sputum production. No fever or chills. Patient had CABG on 12/13/2018 and was discharged to rehab on 12/17/2018. Patient was discharged from the rehab on January 13. CT face showed complex comminuted fracture of the bilateral nasal bones with overall rightward deviation of the nose. Additional fracture of the anterior superior bony nasal septum and an extensive periodantal disease. CT cervical spine showed no acute fracture or dislocation evident in the cervical spine. First left rib fracture anteriorly with the age undetermined. Troponin 0.037, 0.048 and 0.110 02/07/2019 Patient initially complained of dizziness when trying to get up from bed. Dizziness is likely due to orthostatic hypotension. Beta blockers have been di scontinued. Cardiology is following. 2-D echocardiogram was ordered. will discontinue Flomax and monitor. ENT was consulted as well. No complaints of fever or chills. No nausea vomiting or abdominal pain. No chest pain or shortness of breath. 02/08/2019 Patient is still complaining of dizziness. Orthostatic vitals every shift was ordered. Cardiology is following. Considering Midodrin. Blood pressure is otherwise fairly stable. No hypotension. Flomax has been discontinued. ENT wants to see the patient as an outpatient. 02/09/2019 Patient denied any complaints of chest pain or shortness of breath. Still complaining of dizziness. Patient is orthostatic positive. And was started on Midodrin.. Cardiology is following. Facial swelling and wounds are healing better. No fever no chills. No nausea vomiting or abdominal pain. No headache. No diarrhea. Current medications reviewed. Objective - Vital Signs Vital signs: Vital Signs Temp 97.6 F 02/09/19 16:00 Pulse 77 02/09/19 16:00 Resp 18 02/09/19 16:00 BP 117/69 02/09/19 16:00 Pulse Ox 99 02/09/19 16:00 Intake & Output 02/08/19 02/09/19 02/09/19 18:59 06:59 18:59 Intake Total 520 1240 680 Output Total 900 Balance 520 1240 -220 Weight 86.6 kg Intake: Intake, IV Titration 1000 Amount Sodium Chloride 0.9% 1, 1000 000 ml @ 100 mls/hr IV . Q10H [facility] Rx#:[id number] Oral 520 240 680 Output: Urine 900 Other: Voiding Method Urinal Urinal # Voids 1 2 2 - Exam PHYSICAL EXAMINATION: Patient is lying in the bed comfortably, no acute distress, awake alert and oriented.. HEENT: Normocephalic. Neck is supple. Pupils reactive. Patient does have lacerated wound on the nostrils. Oral cavity is moist. Ears reveal no drainage. Neck reveals no JVD, carotid bruits, or thyromegaly. CHEST EXAMINATION: Trachea is central. Symmetrical expansion. Lung krishna clear to auscultation and percussion. CARDIAC: Normal S1, S2 with no gallops. No murmurs ABDOMEN: Soft. Bowel sounds normal. No organomegaly. No abdominal bruits. Extremities: reveal no edema. No clubbing or cyanosis Neurologically awake, alert, oriented x3 with well-coordinated movements. No focal deficits noted Skin: No rash or skin lesions. Psychiatric: Coperative. Nonsuicidal Musculoskeletal: No joint swelling or deformity. Normal range of motion. - Labs CBC & Chem 7: 02/11/19 06:36 02/11/19 06:36 Labs: Abnormal Lab Results - Last 24 Hours (Table) 02/08/19 02/09/19 02/09/19 Range/Units 20:51 06:54 10:50 POC Glucose (mg/dL) 286 H 155 H 221 H (75-99) mg/dL 02/09/19 Range/Units 16:21 POC Glucose (mg/dL) 171 H (75-99) mg/dL Assessment and Plan Assessment: Status post fall due to dizziness, near syncope. Likely orthostatic hypotension. With fracture of bilateral nasal bones Orthostatic hypotension. Started on Midodrin. Ruled out cardiac arrhythmia Mildly elevated troponin level. Unlikely ACS. Recent coronary artery bypass graft on 12/13/2018 Recent non-ST rate [place] status post catheter with severe 2 vessel disease. 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 Beta blockers have been discontinued. Will hold Flomax and monitor for any urinary retention. Cardiology is on board. Patient was started on Midodrin. Wound care management. ENT consulted but wants to see him in the clinic.. Continue with insulin sliding scale and home medications. 2-D echocardiogram was ordered. Follow up closely and further recommendations based on the clinical course. Time with Patient: Greater than 30
--- NOTE | 2019-02-11 23:57 | P.PN ---
Subjective Progress Note Date: 02/10/19 Principal diagnosis: Dizziness and near syncope Patient is a 68 old male with a known history of recent coronary artery bypass graft, coronary artery disease and [place], CHF with ejection fraction 30-35%, COPD and diabetes type 2 and other multiple medical problems was brought to the hospital status post fall secondary to dizziness and near syncope. Patient denied any loss of consciousness. Patient was at Dr. Cerda's office today and was leaving home. Patient was coming out of the clinic and became more lightheaded and fell forward landing on his face. Patient sustained severe pain and bleeding from both nostrils. Patient is having usually mild dizziness. Blood pressure is also on the lower side and currently on low-dose beta blockers at home. Denied any headache. No chest pain or shortness of breath. Denied any cough or sputum production. No fever or chills. Patient had CABG on 12/13/2018 and was discharged to rehab on 12/17/2018. Patient was discharged from the rehab on January 13. CT face showed complex comminuted fracture of the bilateral nasal bones with overall rightward deviation of the nose. Additional fracture of the anterior superior bony nasal septum and an extensive periodantal disease. CT cervical spine showed no acute fracture or dislocation evident in the cervical spine. First left rib fracture anteriorly with the age undetermined. Troponin 0.037, 0.048 and 0.110 02/07/2019 Patient initially complained of dizziness when trying to get up from bed. Dizziness is likely due to orthostatic hypotension. Beta blockers have been di scontinued. Cardiology is following. 2-D echocardiogram was ordered. will discontinue Flomax and monitor. ENT was consulted as well. No complaints of fever or chills. No nausea vomiting or abdominal pain. No chest pain or shortness of breath. 02/08/2019 Patient is still complaining of dizziness. Orthostatic vitals every shift was ordered. Cardiology is following. Considering Midodrin. Blood pressure is otherwise fairly stable. No hypotension. Flomax has been discontinued. ENT wants to see the patient as an outpatient. 02/09/2019 Patient denied any complaints of chest pain or shortness of breath. Still complaining of dizziness. Patient is orthostatic positive. And was started on Midodrin.. Cardiology is following. Facial swelling and wounds are healing better. No fever no chills. No nausea vomiting or abdominal pain. No headache. No diarrhea. 02/10/2019 Patient says that his dizziness is improved. Able to sit in the same. Patient is being continued on Midodrin. No other acute overnight issues otherwise. Current medications reviewed. Objective - Vital Signs Vital signs: Vital Signs Temp 97.6 F 02/10/19 20:00 Pulse 78 02/10/19 20:00 Resp 17 02/10/19 20:00 BP 124/74 02/10/19 20:00 Pulse Ox 98 02/10/19 20:00 Intake & Output 02/10/19 02/10/19 02/11/19 06:59 18:59 06:59 Intake Total 800 580 Output Total 2400 500 400 Balance -1600 80 -400 Weight 86 kg Intake: Oral 800 580 Output: Urine 2400 500 400 Other: Voiding Method Toilet Toilet Toilet Urinal Urinal Urinal # Voids 1 - Exam PHYSICAL EXAMINATION: Patient is lying in the bed comfortably, no acute distress, awake alert and oriented.. HEENT: Normocephalic. Neck is supple. Pupils reactive. Patient does have lacerated wound on the nostrils. Oral cavity is moist. Ears reveal no drainage. Neck reveals no JVD, carotid bruits, or thyromegaly. CHEST EXAMINATION: Trachea is central. Symmetrical expansion. Lung krishna clear to auscultation and percussion. CARDIAC: Normal S1, S2 with no gallops. No murmurs ABDOMEN: Soft. Bowel sounds normal. No organomegaly. No abdominal bruits. Extremities: reveal no edema. No clubbing or cyanosis Neurologically awake, alert, oriented x3 with well-coordinated movements. No focal deficits noted Skin: No rash or skin lesions. Psychiatric: Coperative. Nonsuicidal Musculoskeletal: No joint swelling or deformity. Normal range of motion. - Labs CBC & Chem 7: 02/11/19 06:36 02/11/19 06:36 Labs: Abnormal Lab Results - Last 24 Hours (Table) 02/10/19 02/10/19 02/10/19 Range/Units 05:58 06:38 06:38 RBC 3.65 L (4.30-5.90) m/uL Hgb 10.5 L (13.0-17.5) gm/dL Hct 32.9 L (39.0-53.0) % Glucose 120 H (74-99) mg/dL POC Glucose (mg/dL) 124 H (75-99) mg/dL 02/10/19 02/10/19 02/10/19 Range/Units 11:29 16:33 20:33 RBC (4.30-5.90) m/uL Hgb (13.0-17.5) gm/dL Hct (39.0-53.0) % Glucose (74-99) mg/dL POC Glucose (mg/dL) 139 H 231 H 241 H (75-99) mg/dL Assessment and Plan Assessment: Status post fall due to dizziness, near syncope. Likely orthostatic hypotension. With fracture of bilateral nasal bones Orthostatic hypotension. Started on Midodrin. Ruled out cardiac arrhythmia Mildly elevated troponin level. Unlikely ACS. Recent coronary artery bypass graft on 12/13/2018 Recent non-ST rate [place] status post catheter with severe 2 vessel disease. 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 Beta blockers have been discontinued. Will hold Flomax and monitor for any urinary retention. Cardiology is on board. Patient was started on Midodrin. Wound care management. ENT consulted but wants to see him in the clinic.. Continue with insulin sliding scale and home medications. 2-D echocardiogram was ordered. Follow up closely and further recommendations based on the clinical course. Time with Patient: Greater than 30
--- NOTE | 2019-02-11 23:58 | P.PN ---
Subjective Progress Note Date: 02/11/19 Principal diagnosis: Dizziness and near syncope Patient is a 68 old male with a known history of recent coronary artery bypass graft, coronary artery disease and [place], CHF with ejection fraction 30-35%, COPD and diabetes type 2 and other multiple medical problems was brought to the hospital status post fall secondary to dizziness and near syncope. Patient denied any loss of consciousness. Patient was at Dr. Cerda's office today and was leaving home. Patient was coming out of the clinic and became more lightheaded and fell forward landing on his face. Patient sustained severe pain and bleeding from both nostrils. Patient is having usually mild dizziness. Blood pressure is also on the lower side and currently on low-dose beta blockers at home. Denied any headache. No chest pain or shortness of breath. Denied any cough or sputum production. No fever or chills. Patient had CABG on 12/13/2018 and was discharged to rehab on 12/17/2018. Patient was discharged from the rehab on January 13. CT face showed complex comminuted fracture of the bilateral nasal bones with overall rightward deviation of the nose. Additional fracture of the anterior superior bony nasal septum and an extensive periodantal disease. CT cervical spine showed no acute fracture or dislocation evident in the cervical spine. First left rib fracture anteriorly with the age undetermined. Troponin 0.037, 0.048 and 0.110 02/07/2019 Patient initially complained of dizziness when trying to get up from bed. Dizziness is likely due to orthostatic hypotension. Beta blockers have been di scontinued. Cardiology is following. 2-D echocardiogram was ordered. will discontinue Flomax and monitor. ENT was consulted as well. No complaints of fever or chills. No nausea vomiting or abdominal pain. No chest pain or shortness of breath. 02/08/2019 Patient is still complaining of dizziness. Orthostatic vitals every shift was ordered. Cardiology is following. Considering Midodrin. Blood pressure is otherwise fairly stable. No hypotension. Flomax has been discontinued. ENT wants to see the patient as an outpatient. 02/09/2019 Patient denied any complaints of chest pain or shortness of breath. Still complaining of dizziness. Patient is orthostatic positive. And was started on Midodrin.. Cardiology is following. Facial swelling and wounds are healing better. No fever no chills. No nausea vomiting or abdominal pain. No headache. No diarrhea. 02/10/2019 Patient says that his dizziness is improved. Able to sit in the same. Patient is being continued on Midodrin. No other acute overnight issues otherwise. 02/11/2019 Patient did have improvement in symptoms of dizziness. Continued on Midodrin 5 mg 3 times a day. Cardiology is following. And spit discharge in next 24 hours with more clinical improvement. Otherwise no chest pain or shortness of breath. No nausea vomiting or abdominal pain. Patient is able to sit in a chair comfortably. Advised to change position slowly. Current medications reviewed. Objective - Vital Signs Vital signs: Vital Signs Temp 99.1 F 02/11/19 20:00 Pulse 79 02/11/19 20:00 Resp 15 02/11/19 20:00 BP 128/65 02/11/19 20:00 Pulse Ox 97 02/11/19 20:00 Intake & Output 02/11/19 02/11/19 02/12/19 06:59 18:59 06:59 Intake Total 720 720 Output Total 1200 600 Balance -480 120 Weight 86 kg Intake: Intake, IV Titration 220 Amount Sodium Chloride 0.9% 1, 220 000 ml @ 100 mls/hr IV . Q10H [facility] Rx#:[id number] Oral 500 720 Output: Urine 1200 600 Other: Voiding Method Toilet Toilet Urinal Urinal - Exam PHYSICAL EXAMINATION: Patient is lying in the bed comfortably, no acute distress, awake alert and oriented.. HEENT: Normocephalic. Neck is supple. Pupils reactive. Patient does have lacerated wound on the nostrils. Oral cavity is moist. Ears reveal no drainage. Neck reveals no JVD, carotid bruits, or thyromegaly. CHEST EXAMINATION: Trachea is central. Symmetrical expansion. Lung krishna clear to auscultation and percussion. CARDIAC: Normal S1, S2 with no gallops. No murmurs ABDOMEN: Soft. Bowel sounds normal. No organomegaly. No abdominal bruits. Extremities: reveal no edema. No clubbing or cyanosis Neurologically awake, alert, oriented x3 with well-coordinated movements. No focal deficits noted Skin: No rash or skin lesions. Psychiatric: Coperative. Nonsuicidal Musculoskeletal: No joint swelling or deformity. Normal range of motion. - Labs CBC & Chem 7: 02/11/19 06:36 02/11/19 06:36 Labs: Abnormal Lab Results - Last 24 Hours (Table) 02/11/19 02/11/19 02/11/19 Range/Units 06:04 06:36 06:36 RBC 3.60 L (4.30-5.90) m/uL Hgb 10.5 L (13.0-17.5) gm/dL Hct 32.6 L (39.0-53.0) % Glucose 138 H (74-99) mg/dL POC Glucose (mg/dL) 146 H (75-99) mg/dL 02/11/19 02/11/19 02/11/19 Range/Units 11:39 16:18 20:42 RBC (4.30-5.90) m/uL Hgb (13.0-17.5) gm/dL Hct (39.0-53.0) % Glucose (74-99) mg/dL POC Glucose (mg/dL) 228 H 233 H 232 H (75-99) mg/dL Assessment and Plan Assessment: Status post fall due to dizziness, near syncope. Likely orthostatic hypotension. With fracture of bilateral nasal bones Orthostatic hypotension. Started on Midodrin. Ruled out cardiac arrhythmia Mildly elevated troponin level. Unlikely ACS. Recent coronary artery bypass graft on 12/13/2018 Recent non-ST rate [place] status post catheter with severe 2 vessel disease. 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 Beta blockers have been discontinued. Will hold Flomax and monitor for any urinary retention. Cardiology is on board. Patient was started on Midodrin. Wound care management. ENT consulted but wants to see him in the clinic.. Continue with insulin sliding scale and home medications. 2-D echocardiogram was ordered. Follow up closely and further recommendations based on the clinical course. Time with Patient: Greater than 30
[2019-02-12] MEDS: HEPARIN SODIUM,PORCINE 5,000 UNIT/ML 1 ML VIAL SQ SCH ×2 (00:50→09:48)
[2019-02-12 02:21] VITALS: TEMP 98.1
[2019-02-12 05:59] LABS: Glucose,Whole Blood 200 mg/dL (75-99)
[2019-02-12] MEDS: SODIUM CHLORIDE 0.9% 1,000 ML IV SCH (06:30)
[2019-02-12] MEDS: LEVOTHYROXINE 75 MCG TAB PO SCH (06:42)
[2019-02-12] MEDS: metFORMIN 500 MG TAB PO SCH (06:42)
[2019-02-12] MEDS: MIDODRINE 5 MG TAB PO SCH (06:42)
[2019-02-12] MEDS: INSULIN ASPART (NovoLOG) 100 UNIT/ML VIAL SQ SCH ×2 (06:42→12:33)
--- NOTE | 2019-02-12 08:48 | PN ---
PROGRESS NOTE This is a gentleman with history of diabetes mellitus, possible autonomic neuropathy, who came into the hospital with a syncopal spell and has nasal fractures. He still has orthostatic changes that are significant. I am recommending that we supplement magnesium, hydrate him aggressively. Vital signs are stable S1-S2 heard normally short systolic murmur noted. Lungs reveal improved air entry. Plan is to continue incentive spirometry and pulmonary toilet. Continue with hydration and based on clinical course we will make further recommendations. [id number] / PRASHANTN: [id number] /
[2019-02-12 08:55] VITALS: RESP 16
[2019-02-12] MEDS: ASPIRIN 81 MG PO SCH (09:48)
[2019-02-12] MEDS: CLOPIDOGREL 75 MG TAB PO SCH (09:48)
[2019-02-12] MEDS: ATORVASTATIN 40 MG TAB PO SCH (09:49)
[2019-02-12 11:45] LABS: Glucose,Whole Blood 274 mg/dL (75-99)
[2019-02-12] MEDS ORDERED: MIDODRINE 5 MG TAB PO SCH (12:30)
[2019-02-12 14:28] VITALS: BP 146/56; PULSE 91
--- NOTE | 2019-02-12 15:24 | PN ---
PROGRESS NOTE Mr. Lozano is a gentleman who is status post recent aortocoronary bypass surgery and has significant orthostatic hypotension with probable autonomic neuropathy secondary to diabetes. His blood pressure on standing was about 108, then came down to 93. I am recommending that we will discontinue Lopressor, continue oral hydration, increase midodrine to 7.5 mg t.i.d. and see how he does. His vitals are stable, S1-S2 heard normally, short systolic murmur noted, lungs reveal improved air entry. Abdomen and lower extremity exam is unchanged. MMODL / IJN: [id number] /
== END 2019-02-12 15:32 | disposition home or self-care (01) ==
LOC: EC 12:29 → UNDOADMOB 16:02 → 3SCARD 16:02 → INTOOBSV 16:02 → 3SCARD 16:59
PROVIDERS: ADMIT Hospitalist; ATTEND Hospitalist
DX: I95.1 Orthostatic hypotension (principal); R55 Syncope and collapse; S02.2XXA Fracture of nasal bones, initial encounter for closed fracture; E86.0 Dehydration; I25.10 Atherosclerotic heart disease of native coronary artery without angina pectoris; R77.8 Other specified abnormalities of plasma proteins; E03.9 Hypothyroidism, unspecified; S22.32XA Fracture of one rib, left side, initial encounter for closed fracture; I11.0 Hypertensive heart disease with heart failure; I50.9 Heart failure, unspecified; I25.5 Ischemic cardiomyopathy; E11.9 Type 2 diabetes mellitus without complications; E11.43 Type 2 diabetes mellitus with diabetic autonomic (poly)neuropathy; E78.5 Hyperlipidemia, unspecified; I25.2 Old myocardial infarction; J44.9 Chronic obstructive pulmonary disease, unspecified; F31.9 Bipolar disorder, unspecified; F43.10 Post-traumatic stress disorder, unspecified; Z86.73 Personal history of transient ischemic attack (TIA), and cerebral infarction without residual deficits; Z87.891 Personal history of nicotine dependence; Z95.1 Presence of aortocoronary bypass graft; Z79.890 Hormone replacement therapy; Z79.4 Long term (current) use of insulin; Z79.02 Long term (current) use of antithrombotics/antiplatelets; Z79.899 Other long term (current) drug therapy; W19.XXXA Unspecified fall, initial encounter; Y92.531 Health care provider office as the place of occurrence of the external cause
CPT/HCPCS: 96376; 96361 ×6; 96365; 96372 ×7; 96375; 99291; 36415; 93005; 80061; 80053; 80048 ×4; 83735 ×3; 84100; 84484 ×2; 85025 ×5; 85610; 85730; 71045; 72125; 70486; 70450; G0378 ×7; C8929; J2270 ×2; J1644 ×7; J3475; Q9950; 93306

== ENCOUNTER 2019-10-09 14:24 | Observation (INO) | payer MEDICARE, OTHER ==
[2019-10-09] MEDS ORDERED: SODIUM CHLORIDE 0.9% 500 ML 500 ML IV STA (14:37)
--- NOTE | 2019-10-09 14:50 | ED ---
General Adult HPI - General Source: patient, RN notes reviewed, old records reviewed Mode of arrival: ambulatory Limitations: no limitations <Abdon Savage - Last Filed: 10/09/19 17:39> <Nigel Bryant - Last Filed: 10/09/19 18:57> - General Chief complaint: GI Bleed Stated complaint: Rectal bleeding Time Seen by Provider: 10/09/19 14:36 - History of Present Illness Initial comments: 68-year-old male patient past medical history significant for coronary artery disease, degenerative, type 2 diabetes prior VT presents ED chief complaint rectal bleeding. Patient works that he has had rectal bleeding for approx imately one month off and on. Patient reports that today he had a moderate amount of bright red blood per rectum. Reports that there is blood on the stool as well as in the toilet bowl and with wiping. Denies any pain. Denies any other complaints at this time. Denies any chest pain, shortness of breath, symptoms of anemia. Systemic: Pt denies fatigue, fever/chills, rash. Pt denies weakness, night sweats, weight loss. Neuro: Pt denies headache, visual disturbances, syncope or pre-syncope. HEENT: Pt denies ocular discharge or irritation, otalgia, rhinorrhea, pharyngitis or notable lymphadenopathy. Cardiopulmonary: Pt denies chest pain, SOB, heart palpitations, dyspnea on exertion. Abdominal/GI: Pt denies abdominal pain, n/v/d. : Pt denies dysuria, burning w/ urination, frequency/urgency. Denies new onset urinary or bowel incontinence. MSK: Pt denies myalgia, loss of strength or function in extremities. Neuro: Pt denies new onset weakness, paresthesias. (Abdon Savage) - Related Data Home Medications Medication Instructions Recorded Confirmed Levothyroxine Sodium [Synthroid] 75 mcg PO DAILY@0600 12/06/18 10/09/19 Insulin Degludec [Tresiba 20 units SQ HS 02/06/19 10/09/19 Flextouch U-100] metFORMIN HCL 500 mg PO AC-BID@0600,1800 02/06/19 10/09/19 Aspirin 81 mg PO DAILY@0600 10/09/19 10/09/19 Atorvastatin [Lipitor] 40 mg PO DAILY@0600 10/09/19 10/09/19 INSULIN ASPART (NovoLOG) [NovoLOG See Protocol SQ AC-TID 10/09/19 10/09/19 (formulary)] Metoprolol Tartrate [Lopressor] 12.5 mg PO BID@0600,1800 10/09/19 10/09/19 Midodrine [ProAmatine] 7.5 mg PO TID@0600,1200,1700 10/09/19 10/09/19 fluvoxaMINE [Luvox] 50 mg PO HS@1800 10/09/19 10/09/19 Allergies Allergy/AdvReac Type Severity Reaction Status Date / Time No Known Allergies Allergy Verified 10/09/19 18:40 Review of Systems ROS Other: All systems not noted in ROS Statement are negative. <Abdon Savage - Last Filed: 10/09/19 17:39> ROS Other: All systems not noted in ROS Statement are negative. <Nigel Bryant - Last Filed: 10/09/19 18:57> ROS Statement: Those systems with pertinent positive or pertinent negative responses have been documented in the HPI. Past Medical History Past Medical History: Coronary Artery Disease (CAD), Heart Failure, CVA/TIA, Diabetes Mellitus, Hyperlipidemia, Hypertension, Myocardial Infarction (VT), Syncope, Thyroid Disorder Additional Past Medical History / Comment(s): CT of the brain in September 2017 demonstrated old right lacunar infarct Last Myocardial Infarction Date:: 12/06/2018 History of Any Multi-Drug Resistant Organisms: None Reported Past Surgical History: Orthopedic Surgery Additional Past Surgical History / Comment(s): right hip, Past Anesthesia/Blood Transfusion Reactions: No Reported Reaction Past Psychological History: Bipolar, PTSD Smoking Status: Former smoker Past Alcohol Use History: None Reported Past Drug Use History: None Reported - Past Family History Father Family Medical History: No Reported History Mother Family Medical History: No Reported History <Abdon Savage - Last Filed: 10/09/19 17:39> General Exam Limitations: no limitations <Abdon Savage - Last Filed: 10/09/19 17:39> - General Exam Comments Initial Comments: Constitutional: NAD, AOX3, Pt has pleasant affect. HEENT: NC/AT, trachea midline, neck supple, no lymphadenopathy. Posterior pharynx non erythematous, without exudates. External ears appear normal, without discharge. Mucous membranes moist. Eyes PERRLA, EOM intact. There is no scleral icterus. No pallor noted. Cardiopulmonary: RRR, no murmurs, rubs or gallops, no JVD noted. Lungs CTAB in anterior and posterior krishna. No peripheral edema. Abdominal exam: Abdomen soft and non-distended. Abdomen non-tender to palpation in all 4 quadrants. Bowel sounds active in LLQ. No hepatosplenomegaly. No ecchymosis Neuro: CN II-XII grossly intact. No nuchal rigidity. No raccon eyes, no flores sign, no hemotympanum. No cervical spinal tenderness. MSK: No posterior calf tenderness bilaterally, homans sign negative bilaterally. Posterior tibialis and radial pulse +2 bilaterally. Sensation intact in upper and lower extremities. Full active ROM in upper and lower extremities, 5/5 stregnth. Rectal: No hemorrhoids noted, no fissures or tears, no bright red blood noted. (Abdon Savage) Course <Nigel Bryant - Last Filed: 10/09/19 18:57> Vital Signs 10/09/19 10/09/19 14:33 18:01 Temperature 97.7 F Pulse Rate 63 64 Respiratory 20 18 Rate Blood Pressure 140/73 185/86 O2 Sat by Pulse 99 98 Oximetry - Reevaluation(s) Reevaluation #1: 10/09/19 18:45 PA supervision: I proceeded [id number] evaluation the patient did discuss the findings with him and his . Patient does present with complaints consistent with a GI bleed he does demonstrate some anemia. He does appear pale on ex amination. He has no prior history of 10/09/19 18:57 Case was discussed with Dr. Carrero (Nigel Bryant) Medical Decision Making - Lab Data Result diagrams: 10/09/19 15:05 10/09/19 16:27 - EKG Data -: EKG Interpreted by Me (and Dr. Bryant) <Abdon Savage - Last Filed: 10/09/19 17:39> - Lab Data Result diagrams: 10/09/19 15:05 10/09/19 16:27 <Nigel Bryant - Last Filed: 10/09/19 18:57> - Medical Decision Making 68-year-old male patient presents to ED for chief complaint of rectal bleeding for one month. Denies any some blood thinners. Denies any pain. Reports bright red blood. Denies any other complaints. Physical exam densely acute pathology. Rectal exam does not display red blood, hemorrhoid or fissure. Hemoglobin 12.7. Urine mildly elevated. Lactic acid 2.5. Troponin negative. Occult blood is positive. ECG nonischemic. Patient initiated on IV fluids, Protonix will be admitted for GI bleed case discussed with Dr. Bryant. (Abdon Savage) - Lab Data Lab Results 10/09/19 10/09/19 10/09/19 Range/Units 15:05 15:05 15:05 WBC 7.5 (3.8-10.6) k/uL RBC 4.10 L (4.30-5.90) m/uL Hgb 12.7 L (13.0-17.5) gm/dL Hct 37.5 L (39.0-53.0) % MCV 91.4 (80.0-100.0) fL MCH 30.9 (25.0-35.0) pg MCHC 33.9 (31.0-37.0) g/dL RDW 12.6 (11.5-15.5) % Plt Count 260 (150-450) k/uL Neutrophils % 65 % Lymphocytes % 21 % Monocytes % 8 % Eosinophils % 4 % Basophils % 1 % Neutrophils # 4.8 (1.3-7.7) k/uL Lymphocytes # 1.5 (1.0-4.8) k/uL Monocytes # 0.6 (0-1.0) k/uL Eosinophils # 0.3 (0-0.7) k/uL Basophils # 0.1 (0-0.2) k/uL PT 12.8 H (9.0-12.0) sec INR 1.2 H (<1.2) APTT 20.9 L (22.0-30.0) sec Sodium (137-145) mmol/L Potassium (3.5-5.1) mmol/L Chloride (98-107) mmol/L Carbon Dioxide (22-30) mmol/L Anion Gap mmol/L BUN (9-20) mg/dL Creatinine (0.66-1.25) mg/dL Est GFR (CKD-EPI)AfAm (>60 ml/min/1.73 sqM) Est GFR (CKD-EPI)NonAf (>60 ml/min/1.73 sqM) Glucose (74-99) mg/dL Plasma Lactic Acid Lior 2.5 H* (0.7-2.0) mmol/L Calcium (8.4-10.2) mg/dL Total Bilirubin (0.2-1.3) mg/dL AST (17-59) U/L ALT (21-72) U/L Alkaline Phosphatase (38-126) U/L Troponin I (0.000-0.034) ng/mL Total Protein (6.3-8.2) g/dL Albumin (3.5-5.0) g/dL Stool Occult Blood (Negative) 10/09/19 10/09/19 10/09/19 Range/Units 15:05 15:46 16:27 WBC (3.8-10.6) k/uL RBC (4.30-5.90) m/uL Hgb (13.0-17.5) gm/dL Hct (39.0-53.0) % MCV (80.0-100.0) fL MCH (25.0-35.0) pg MCHC (31.0-37.0) g/dL RDW (11.5-15.5) % Plt Count (150-450) k/uL Neutrophils % % Lymphocytes % % Monocytes % % Eosinophils % % Basophils % % Neutrophils # (1.3-7.7) k/uL Lymphocytes # (1.0-4.8) k/uL Monocytes # (0-1.0) k/uL Eosinophils # (0-0.7) k/uL Basophils # (0-0.2) k/uL PT (9.0-12.0) sec INR (<1.2) APTT (22.0-30.0) sec Sodium 139 (137-145) mmol/L Potassium 5.1 (3.5-5.1) mmol/L Chloride 109 H (98-107) mmol/L Carbon Dioxide 24 (22-30) mmol/L Anion Gap 6 mmol/L BUN 22 H (9-20) mg/dL Creatinine 0.88 (0.66-1.25) mg/dL Est GFR (CKD-EPI)AfAm >90 (>60 ml/min/1.73 sqM) Est GFR (CKD-EPI)NonAf 90 (>60 ml/min/1.73 sqM) Glucose 109 H (74-99) mg/dL Plasma Lactic Acid Lior (0.7-2.0) mmol/L Calcium 8.5 (8.4-10.2) mg/dL Total Bilirubin 0.3 (0.2-1.3) mg/dL AST 21 (17-59) U/L ALT 19 L (21-72) U/L Alkaline Phosphatase 51 (38-126) U/L Troponin I <0.012 (0.000-0.034) ng/mL Total Protein 6.6 (6.3-8.2) g/dL Albumin 3.5 (3.5-5.0) g/dL Stool Occult Blood Positive (Negative) - EKG Data EKG Comments: Ventricular rate 60,.: 98, QRS 70, QT/QTc 432 cm 432. Normal sinus rhythm, inferior infarct age undetermined. Cannot Rule out anterior infarct. No concern for acute ischemia and this time. (Abdon Savage) Disposition Is patient prescribed a controlled substance at d/c from ED?: No <Abdon Savage - Last Filed: 10/09/19 17:39> <Nigel Bryant - Last Filed: 10/09/19 18:57> Clinical Impression: GI bleed Disposition: ADMITTED IP TO THIS HOSP Condition: Serious
[2019-10-09 15:27] LABS: Basophils # (A) 0.1 k/uL (0-0.2); Basophils % (A) 1 %; Eosinophils # (A) 0.3 k/uL (0-0.7); Eosinophils % (A) 4 %; HCT 37.5 % (39.0-53.0); HGB 12.7 gm/dL (13.0-17.5); Lymphocytes # (A) 1.5 k/uL (1.0-4.8); Lymphocytes % (A) 21 %; MCH 30.9 pg (25.0-35.0); MCHC 33.9 g/dL (31.0-37.0); MCV 91.4 fL (80.0-100.0); Monocytes # (A) 0.6 k/uL (0-1.0); Monocytes % (A) 8 %; Neutrophils # (A) 4.8 k/uL (1.3-7.7); Neutrophils % (A) 65 %; Platelet Count 260 k/uL (150-450); RDW 12.6 % (11.5-15.5); WBC 7.5 k/uL (3.8-10.6)
[2019-10-09 15:40] LABS: INR 1.2 (<1.2); Partial Thromboplastin Time 20.9 sec (22.0-30.0); Prothrombin Time 12.8 sec (9.0-12.0)
[2019-10-09] MEDS ORDERED: SODIUM CHLORIDE 0.9% 1,000 ML IV STA (16:01)
[2019-10-09] MEDS ORDERED: PANTOPRAZOLE 40 MG/10 ML VIAL IVP ONE (16:39)
[2019-10-09 16:49] LABS: ALT 19 U/L (21-72); AST 21 U/L (17-59); African American GFR (CKD) >90 (>60 ml/min/1.73 sqM); Albumin 3.5 g/dL (3.5-5.0); Alkaline Phosphatase 51 U/L (38-126); Anion Gap 6 mmol/L; Blood Urea Nitrogen 22 mg/dL (9-20); Calcium 8.5 mg/dL (8.4-10.2); Carbon Dioxide 24 mmol/L (22-30); Chloride 109 mmol/L (98-107); Glucose 109 mg/dL (74-99); Non-African American GFR(CKD) 90 (>60 ml/min/1.73 sqM); Sodium 139 mmol/L (137-145); Total Bilirubin 0.3 mg/dL (0.2-1.3); Total Protein 6.6 g/dL (6.3-8.2)
[2019-10-09 17:07] LABS: Potassium 5.1 mmol/L (3.5-5.1)
[2019-10-09] MEDS ORDERED: ACETAMINOPHEN TAB 325 MG TAB PO PRN (17:41)
[2019-10-09] MEDS ORDERED: NALOXONE 0.4 MG/ML 1 ML VIAL IV PRN (17:41)
[2019-10-09] MEDS: SODIUM CHLORIDE 0.9% 1,000 ML IV SCH (18:01)
[2019-10-09 19:58] VITALS: BMI 26.4
[2019-10-09 20:08] LABS: Glucose,Whole Blood 104 mg/dL (75-99)
[2019-10-09] MEDS: PANTOPRAZOLE 40 MG/10 ML VIAL IV SCH (20:59)
[2019-10-09] MEDS ORDERED: METOPROLOL TARTRATE 12.5 MG TAB PO STA (21:03)
[2019-10-09] MEDS: INSULIN ASPART (NovoLOG) 100 UNIT/ML VIAL SQ SCH (21:05)
[2019-10-10] MEDS: SODIUM CHLORIDE 0.9% 1,000 ML IV SCH ×2 (03:51→17:42)
[2019-10-10] MEDS: METOPROLOL TARTRATE 12.5 MG TAB PO SCH ×2 (05:23→17:41)
[2019-10-10] MEDS: PANTOPRAZOLE 40 MG/10 ML VIAL IV SCH ×2 (05:23→21:39)
[2019-10-10] MEDS: LEVOTHYROXINE 75 MCG TAB PO SCH (05:23)
[2019-10-10] MEDS: ATORVASTATIN 40 MG TAB PO SCH (05:24)
[2019-10-10] MEDS: ASPIRIN 81 MG PO SCH (05:24)
[2019-10-10] MEDS: MIDODRINE 5 MG TAB PO SCH ×3 (05:25→16:57)
[2019-10-10 06:49] LABS: Glucose,Whole Blood 149 mg/dL (75-99)
[2019-10-10 08:02] LABS: Calcium 8.8 mg/dL (8.4-10.2); Potassium 4.4 mmol/L (3.5-5.1); Total Bilirubin 0.9 mg/dL (0.2-1.3); Total Protein 7.6 g/dL (6.3-8.2)
[2019-10-10] MEDS: INSULIN ASPART (NovoLOG) 100 UNIT/ML VIAL SQ SCH ×4 (08:19→21:39)
[2019-10-10 08:20] LABS: Basophils # (A) 0.1 k/uL (0-0.2); Basophils % (A) 1 %; Eosinophils # (A) 0.2 k/uL (0-0.7); Eosinophils % (A) 3 %; HCT 39.4 % (39.0-53.0); HGB 12.4 gm/dL (13.0-17.5); Lymphocytes # (A) 1.3 k/uL (1.0-4.8); Lymphocytes % (A) 19 %; MCH 29.1 pg (25.0-35.0); MCHC 31.4 g/dL (31.0-37.0); MCV 92.5 fL (80.0-100.0); Mean Platelet Volume 6.4; Monocytes # (A) 0.4 k/uL (0-1.0); Monocytes % (A) 6 %; Neutrophils # (A) 4.7 k/uL (1.3-7.7); Neutrophils % (A) 70 %; Platelet Count 345 k/uL (150-450); RBC 4.26 m/uL (4.30-5.90); RDW 12.7 % (11.5-15.5); WBC 6.7 k/uL (3.8-10.6)
[2019-10-10 11:13] LABS: Glucose,Whole Blood 285 mg/dL (75-99)
[2019-10-10 16:56] LABS: Glucose,Whole Blood 154 mg/dL (75-99)
--- NOTE | 2019-10-10 16:56 | P.HPIM ---
History of Present Illness H&P Date: 10/10/19 Chief Complaint: Rectal bleeding Patient is a 68 old male with a known history of recent coronary artery bypass graft, coronary artery disease and DE, CHF with ejection fraction 30-35%, COPD and diabetes type 2 and orthostatic hypotension came to ER with the complaints of rectal bleeding. Patient says that he has been having rectal bleeding for the past 1 month on and off. Today patient had bright red blood per rectum more than usual bleeding. Denied any complaints of abdominal pain or rectal pain. Denied any complaints of chest pain or exertional short of breath. No leg swelling. No headache or dizziness or lightheadedness. No cough or sputum production. No fever no chills. Denied any recent illnesses. Denied any dysuria or hematuria. Patient is currently not on any blood thinners. Hemoglobin 12.7, lactic acid 2.5 and BUN 22 FOBT positive Review of Systems Constitutional: Patient denies any fever or chills . No generalized weakness or weight loss. Abdomen: Patient denied nausea vomiting and diarrhea and abdominal pain. Rectal bleeding. Cardiovascular: Patient denies any chest pain or short of breath no palpitations. Respiratory: patient denied any cough is from production. No shortness of breath Neurologic: Patient denied any numbness or tingling headache. Musculoskeletal: Patient denies any complaints of joint swelling or deformity. Skin: Negative Psychiatric: Negative Endocrine: No heat or cold intolerance. No recent weight gain. Genitourinary: No dysuria or hematuria. All other 14 point ROS negative except the above Past Medical History Past Medical History: Coronary Artery Disease (CAD), Heart Failure, CVA/TIA, Diabetes Mellitus, Hyperlipidemia, Hypertension, Myocardial Infarction (DE), Syncope, Thyroid Disorder Additional Past Medical History / Comment(s): CT of the brain in September 2017 demonstrated old right lacunar infarct Last Myocardial Infarction Date:: 12/06/2018 History of Any Multi-Drug Resistant Organisms: None Reported Past Surgical History: Orthopedic Surgery Additional Past Surgical History / Comment(s): right hip, Past Anesthesia/Blood Transfusion Reactions: No Reported Reaction Past Psychological History: Bipolar, PTSD Smoking Status: Former smoker Past Alcohol Use History: None Reported Past Drug Use History: None Reported - Past Family History Father Family Medical History: No Reported History Mother Family Medical History: No Reported History Medications and Allergies Home Medications Medication Instructions Recorded Confirmed Type Levothyroxine Sodium [Synthroid] 75 mcg PO DAILY@0600 12/06/18 10/09/19 History Insulin Degludec [Tresiba 20 units SQ HS 02/06/19 10/09/19 History Flextouch U-100] metFORMIN HCL 500 mg PO AC-BID@0600,1800 02/06/19 10/09/19 History Aspirin 81 mg PO DAILY@0600 10/09/19 10/09/19 History Atorvastatin [Lipitor] 40 mg PO DAILY@0600 10/09/19 10/09/19 History INSULIN ASPART (NovoLOG) [NovoLOG See Protocol SQ AC-TID 10/09/19 10/09/19 History (formulary)] Metoprolol Tartrate [Lopressor] 12.5 mg PO BID@0600,1800 10/09/19 10/09/19 History Midodrine [ProAmatine] 7.5 mg PO TID@0600,1200,1700 10/09/19 10/09/19 History fluvoxaMINE [Luvox] 50 mg PO HS@1800 10/09/19 10/09/19 History Allergies Allergy/AdvReac Type Severity Reaction Status Date / Time No Known Allergies Allergy Verified 10/09/19 18:40 Physical Exam Vitals: Vital Signs Temp Pulse Pulse Resp BP BP Pulse Ox 10/10/19 12:15 97.9 F 60 16 158/78 96 10/10/19 07:48 56 L 16 10/10/19 06:51 97.7 F 56 L 16 180/79 96 10/10/19 05:00 97.2 F L 64 16 180/93 94 L 10/10/19 00:00 62 16 10/09/19 21:15 97.9 F 62 16 185/84 97 10/09/19 18:01 64 18 185/86 98 10/09/19 14:33 97.7 F 63 20 140/73 99 Intake and Output 10/09/19 10/10/19 10/10/19 22:59 06:59 14:59 Intake Total 1020 1020 Balance 1020 1020 Intake: Intake, IV Titration 600 600 Amount Sodium Chloride 0.9% 1, 600 600 000 ml @ 100 mls/hr IV . Q10H JOLYNN Rx#:[id number] Oral 420 420 Other: Voiding Method Toilet # Voids 2 2 # Bowel Movements 1 PHYSICAL EXAMINATION: Patient is lying in the bed comfortably, no acute distress, awake alert and oriented.. HEENT: Normocephalic. Neck is supple. Pupils reactive. Nostrils clear. Oral cavity is moist. Ears reveal no drainage. Neck reveals no JVD, carotid bruits, or thyromegaly. CHEST EXAMINATION: Trachea is central. Symmetrical expansion. Lung krishna clear to auscultation and percussion. CARDIAC: Normal S1, S2 with no gallops. No murmurs ABDOMEN: Soft. Bowel sounds normal. No organomegaly. No abdominal bruits. Extremities: reveal no edema. No clubbing or cyanosis Neurologically awake, alert, oriented x3 with well-coordinated movements. No focal deficits noted Skin: No rash or skin lesions. Psychiatric: Coperative. Nonsuicidal Musculoskeletal: No joint swelling or deformity. Normal range of motion. Results CBC & Chem 7: 10/10/19 07:19 10/10/19 07:19 Labs: Abnormal Lab Results - Last 24 Hours (Table) 10/09/19 10/09/19 10/09/19 Range/Units 15:05 15:05 15:05 RBC 4.10 L (4.30-5.90) m/uL Hgb 12.7 L (13.0-17.5) gm/dL Hct 37.5 L (39.0-53.0) % PT 12.8 H (9.0-12.0) sec INR 1.2 H (<1.2) APTT 20.9 L (22.0-30.0) sec Chloride (98-107) mmol/L Carbon Dioxide (22-30) mmol/L BUN (9-20) mg/dL Glucose (74-99) mg/dL POC Glucose (mg/dL) (75-99) mg/dL Plasma Lactic Acid Lior 2.5 H* (0.7-2.0) mmol/L ALT (21-72) U/L 10/09/19 10/09/19 10/09/19 Range/Units 16:27 19:33 20:07 RBC (4.30-5.90) m/uL Hgb (13.0-17.5) gm/dL Hct (39.0-53.0) % PT (9.0-12.0) sec INR (<1.2) APTT (22.0-30.0) sec Chloride 109 H (98-107) mmol/L Carbon Dioxide (22-30) mmol/L BUN 22 H (9-20) mg/dL Glucose 109 H (74-99) mg/dL POC Glucose (mg/dL) 104 H (75-99) mg/dL Plasma Lactic Acid Lior 2.3 H* (0.7-2.0) mmol/L ALT 19 L (21-72) U/L 10/10/19 10/10/19 10/10/19 Range/Units 06:47 07:19 07:19 RBC 4.26 L (4.30-5.90) m/uL Hgb 12.4 L (13.0-17.5) gm/dL Hct (39.0-53.0) % PT (9.0-12.0) sec INR (<1.2) APTT (22.0-30.0) sec Chloride 110 H (98-107) mmol/L Carbon Dioxide 19 L (22-30) mmol/L BUN (9-20) mg/dL Glucose 144 H (74-99) mg/dL POC Glucose (mg/dL) 149 H (75-99) mg/dL Plasma Lactic Acid Lior (0.7-2.0) mmol/L ALT (21-72) U/L 10/10/19 Range/Units 11:12 RBC (4.30-5.90) m/uL Hgb (13.0-17.5) gm/dL Hct (39.0-53.0) % PT (9.0-12.0) sec INR (<1.2) APTT (22.0-30.0) sec Chloride (98-107) mmol/L Carbon Dioxide (22-30) mmol/L BUN (9-20) mg/dL Glucose (74-99) mg/dL POC Glucose (mg/dL) 285 H (75-99) mg/dL Plasma Lactic Acid Lior (0.7-2.0) mmol/L ALT (21-72) U/L Thrombosis Risk Factor Assmnt - DVT/VTE Prophylaxis DVT/VTE Prophylaxis: Pharmacologic Prophylaxis ordered - Choose All That Apply Any of the Below Risk Factors Present?: No Other Risk Factors: Yes Each Risk Factor Represents 2 Points: Age 61-74 years Other congenital or acquired thrombophilia - If yes, enter type in comment: No Thrombosis Risk Factor Assessment Total Risk Factor Score: 2 Thrombosis Risk Factor Assessment Level: Low Risk Assessment and Plan Assessment: Mild acute blood loss anemia secondary to rectal bleeding/ lower GI bleed Lactic acidosis 2.5 on admission. Orthostatic hypotension. With history of previous fall. Currently on Midodrin at home. Recent coronary artery bypass graft on 12/13/2018 Recent non-ST rate DE status post catheter with severe 2 vessel disease. 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 Continue with home insulin dose and sliding scale. Continue with PPI. Gastroenterology will be consulted. Monitor H&H. Further recommendations based on the clinical course. Time with Patient: Greater than 30
[2019-10-10] MEDS ORDERED: PEG 3350-NA SULF,BICARB,CL/KCL 4,000 ML BOTTLE PO ONE (17:00)
--- NOTE | 2019-10-10 18:05 | CONS ---
CONSULTATION DATE OF DICTATION: 10/10/2019 REASON FOR CONSULTATION: Rectal bleeding. HISTORY OF PRESENT ILLNESS: The patient is a 68-year-old pleasant white male who was admitted to the hospital because of rectal bleeding on and off for the last one month's duration. He usually has intermittent bleeding; however, for the last one week he has been having bright red blood per rectum at least 2 or 3 times daily, and for the last 2 days it was a significant amount and hence he became concerned and came to the emergency room. He denies any abdominal pain. No history of constipation. Usually has 1 or 2 bowel movements daily. No nausea, vomiting. Last colonoscopy was approximately 5 years ago, and according to the patient he had a small polyp. His initial hemoglobin was 12.4 g/dL. He denies any recent NSAID use. PAST MEDICAL HISTORY: Past medical history is significant for: 1. Coronary artery disease. 2. Congestive heart failure. 3. CVA in the past. 4. Diabetes mellitus. 5. Hypertension. 6. Hyperlipidemia. 7. Coronary artery disease. PAST SURGICAL HISTORY: CABG. MEDICATIONS: Medications at home include: 1. Aspirin. 2. Lipitor. 3. NovoLog. 4. Metoprolol. 5. Luvox. 6. Metformin. 7. Insulin. 8. Synthroid. ALLERGIES: NONE. SOCIAL HISTORY: Former smoker. No alcohol use. FAMILY HISTORY: Father and mother with no medical problems. REVIEW OF SYSTEMS: CARDIOPULMONARY: No chest pain or shortness of breath. GENITOURINARY: No dysuria or hematuria. MUSCULOSKELETAL: Unremarkable. SKIN: Unremarkable. ENDOCRINE: Unremarkable. PSYCHIATRIC: Unremarkable. NEUROLOGY: Unremarkable. ENT/VISION: Unremarkable. CONSTITUTIONAL: No recent weight loss. No fever, chills, night sweats. PHYSICAL EXAMINATION: He appears comfortable. No apparent distress. Vital signs are stable. Blood pressure 158/78, pulse rate 60, temperature 98.2. HEENT examination unremarkable. Conjunctivae pink. Sclerae anicteric. Oral cavity no lesions. NECK: No JVD or lymph node enlargement. CHEST: Clear to auscultation. HEART: Regular rate and rhythm. ABDOMEN: Soft. Bowel sounds are positive. No organomegaly. EXTREMITIES: No pedal edema. SKIN: No rashes. NEUROLOGIC: Alert and oriented x3. No focal deficits. LABS: Labs done at the time of admission to the hospital showed WBC 6.7, hemoglobin 12.4, platelets normal. Basic metabolic panel is within normal limits. Repeat hemoglobin was 12.4. INR 1.2. Stool occult blood was positive. IMPRESSION: 1. This is a patient who presents to the hospital with rectal bleeding on and off for the last one month's duration. For the last 3 days he has been having worsening bleeding, 2 to 3 episodes of bright red blood per rectum, with no associated abdominal pain, nausea, vomiting. Hemoglobin stable at 12.4 g/dL. Last colonoscopy was approximately 4 or 5 years ago, and according to the patient he was noted to have small polyps. 2. Coronary artery disease, status post coronary artery bypass grafting. 3. Hypertension. 4. Hyperlipidemia. RECOMMENDATIONS: I had a lengthy discussion with the patient regarding further workup. At this time we will proceed with a colonoscopy tomorrow. I discussed with the patient risks, benefits and complications of the procedure and he will be scheduled for a colonoscopy in the morning. In the meantime, we will follow CBC on a daily basis. Further recommendations to follow based on the endoscopic results. Thank you for this consultation. MMODL / IJN: [id number] /
[2019-10-10 20:15] LABS: Glucose,Whole Blood 291 mg/dL (75-99)
[2019-10-10] MEDS ORDERED: INSULIN DETEMIR (LEVEMIR) 100 UNIT/ML SYR SQ SCH (21:00)
[2019-10-11] MEDS ORDERED: PROPOFOL 10 MG/ML 20 ML VIAL IV ONE (07:15)
[2019-10-11] MEDS ORDERED: IV FLUID CONTINUATION 700 ML IV ONE (07:25)
--- NOTE | 2019-10-11 07:49 | P.PCN ---
Date of Procedure: 10/11/19 Procedure(s) Performed: BRIEF HISTORY: Patient is a 68-year-old pleasant white male, admitted hospital with rectal bleeding on and off for the last 1 month duration. However for the last 3-4 days he had 3-4 bowel movements daily with blood and mucus in the stool. He is hence scheduled for colonoscopy to evaluate further . PROCEDURE PERFORMED: Colonoscopy with biopsies. PREOPERATIVE DIAGNOSIS: rectal bleeding for the last 1 month duration. IV sedation per Anesthesia. PROCEDURE: After informed consent was obtained, the patient, was brought into the endoscopy unit. IV sedation was administered by Anesthesia under continuous monitoring. Digital rectal examination was normal. Initially the Olympus CF-160 flexible video colonoscope was then inserted in the rectum, gradually advanced into the cecum without any difficulty. Careful examination was performed as the scope was gradually being withdrawn. Ileocecal valve and the appendiceal orifice were visualized and appeared normal. Prep was excellent. Mucosa of the cecum, ascending colon, transverse colon, descending colon appeared normal. There was evidence of colitis involving the rectum and sigmoid colon extending up to 40 cm from the anal verge with mucosal erythema, friability granularity and spontaneous bleeding and exudates consistent with proctosigmoiditis and multiple biopsies were done from this area. Retroflexion was performed in the rectum and no lesions were seen. The patient tolerated the procedure well. IMPRESSION: Active proctosigmoiditis No evidence of colorectal neoplasia . RECOMMENDATIONS: Findings of this examination were discussed with the patient as well as his family. Await biopsy results. He will be started on oral mesalamine and prednisone 30 mg daily that can be tapered by 5 mg every week. He can be discharged home today with outpatient follow-up in 2 weeks..
[2019-10-11 08:23] LABS: Glucose,Whole Blood 226 mg/dL (75-99)
[2019-10-11] MEDS: METOPROLOL TARTRATE 12.5 MG TAB PO SCH (08:40)
[2019-10-11] MEDS: PANTOPRAZOLE 40 MG/10 ML VIAL IV SCH (08:40)
[2019-10-11] MEDS: LEVOTHYROXINE 75 MCG TAB PO SCH (08:40)
[2019-10-11] MEDS: ATORVASTATIN 40 MG TAB PO SCH (08:40)
[2019-10-11] MEDS: INSULIN ASPART (NovoLOG) 100 UNIT/ML VIAL SQ SCH ×2 (08:41→12:45)
[2019-10-11] MEDS: ASPIRIN 81 MG PO SCH (08:41)
[2019-10-11] MEDS: MIDODRINE 5 MG TAB PO SCH ×2 (08:43→12:46)
[2019-10-11] MEDS ORDERED: predniSONE 10 MG TAB PO SCH (09:00)
[2019-10-11] MEDS: SODIUM CHLORIDE 0.9% 1,000 ML IV SCH (09:17)
[2019-10-11 11:22] LABS: Glucose,Whole Blood 468 mg/dL (75-99)
[2019-10-11 11:37] VITALS: BP 110/66; PULSE 70; RESP 17; TEMP 97.5
[2019-10-11] MEDS ORDERED: INSULIN DETEMIR (LEVEMIR) 100 UNIT/ML SYR SQ ONE (12:12)
[2019-10-11] MEDS ORDERED: BALSALAZIDE DISODIUM 750 MG CAPSULE PO SCH (13:30)
[2019-10-11 13:41] LABS: Glucose,Whole Blood 343 mg/dL (75-99)
[2019-10-11 14:08] LABS: Glucose,Whole Blood 292 mg/dL (75-99)
[2019-10-11 14:53] LABS: Glucose,Whole Blood 249 mg/dL (75-99)
[2019-10-11 15:32] LABS: Glucose,Whole Blood 221 mg/dL (75-99)
[2019-10-11 15:58] LABS: Glucose,Whole Blood 234 mg/dL (75-99)
--- NOTE | 2019-10-16 21:42 | P.DS ---
Providers Date of admission: 10/09/19 18:50 Expected date of discharge: 10/11/19 Attending physician: Jess Gifford Consults: 10/09/19 17:41 Consult Physician Stat Consulting Provider: Elena Thompson Consult Reason/Comments: GI Bleed Do you want consulting provider notified?: Yes Primary care physician: Zaida Horton Hospital Course: Discharge diagnosis Mild acute blood loss anemia secondary to rectal bleeding/ lower GI bleed. Status post colonoscopy Lactic acidosis 2.5 on admission. Orthostatic hypotension. With history of previous fall. Currently on Midodrin at home. Recent coronary artery bypass graft on 12/13/2018 Recent non-ST rate IA status post catheter with severe 2 vessel disease. 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 Patient says that he has been having rectal bleeding for the past 1 month on and off. Today patient had bright red blood per rectum more than usual bleeding. Denied any complaints of abdominal pain or rectal pain. Denied any complaints of chest pain or exertional short of breath. No leg swelling. No headache or dizziness or lightheadedness. No cough or sputum production. No fever no chills. Denied any recent illnesses. Denied any dysuria or hematuria. Patient is currently not on any blood thinners. Hemoglobin 12.7, lactic acid 2.5 and BUN 22 FOBT positive 10/12/2019 Patient underwent colonoscopy today. Showed Active proctosigmoiditis No evidence of colorectal neoplasia . RECOMMENDATIONS: Findings of this examination were discussed with the patient as well as his family. Await biopsy results. He will be started on oral mesalamine and prednisone 30 mg daily that can be tapered by 5 mg every week. He can be discharged home today with outpatient follow-up in 2 weeks.. Patient denied any active bleeding. No rectal bleeding. No chest pain or shortness breath. No other acute overnight issues. Patient wants to be discharged home. PHYSICAL EXAMINATION: Patient is lying in the bed comfortably, no acute distress, awake alert and oriented.. HEENT: Normocephalic. Neck is supple. Pupils reactive. Nostrils clear. Oral cavity is moist. Ears reveal no drainage. Neck reveals no JVD, carotid bruits, or thyromegaly. CHEST EXAMINATION: Trachea is central. Symmetrical expansion. Lung krishna clear to auscultation and percussion. CARDIAC: Normal S1, S2 with no gallops. No murmurs ABDOMEN: Soft. Bowel sounds normal. No organomegaly. No abdominal bruits. Extremities: reveal no edema. No clubbing or cyanosis Neurologically awake, alert, oriented x3 with well-coordinated movements. No focal deficits noted Skin: No rash or skin lesions. Psychiatric: Coperative. Nonsuicidal Musculoskeletal: No joint swelling or deformity. Normal range of motion. Discharge vitals reviewed. Patient Condition at Discharge: Serious Plan - Discharge Summary Discharge Rx Participant: Yes New Discharge Prescriptions: New Balsalazide Disodium [Colazal] 2,250 mg PO TID #90 cap predniSONE See Taper PO DAILY #153 tab Continue Levothyroxine Sodium [Synthroid] 75 mcg PO DAILY@0600 metFORMIN HCL 500 mg PO AC-BID@0600,1800 Insulin Degludec [Tresiba Flextouch U-100] 20 units SQ HS Metoprolol Tartrate [Lopressor] 12.5 mg PO BID@0600,1800 fluvoxaMINE [Luvox] 50 mg PO HS@1800 INSULIN ASPART (NovoLOG) [NovoLOG (formulary)] See Protocol SQ AC-TID Midodrine [ProAmatine] 7.5 mg PO TID@0600,1200,1700 Atorvastatin [Lipitor] 40 mg PO DAILY@0600 Aspirin 81 mg PO DAILY@0600 Discharge Medication List Levothyroxine Sodium [Synthroid] 75 mcg PO DAILY@0600 12/06/18 [History] Insulin Degludec [Tresiba Flextouch U-100] 20 units SQ HS 02/06/19 [History] metFORMIN HCL 500 mg PO AC-BID@0600,1800 02/06/19 [History] Aspirin 81 mg PO DAILY@0600 10/09/19 [History] Atorvastatin [Lipitor] 40 mg PO DAILY@0600 10/09/19 [History] INSULIN ASPART (NovoLOG) [NovoLOG (formulary)] See Protocol SQ AC-TID 10/09/19 [History] Metoprolol Tartrate [Lopressor] 12.5 mg PO BID@0600,1800 10/09/19 [History] Midodrine [ProAmatine] 7.5 mg PO TID@0600,1200,1700 10/09/19 [History] fluvoxaMINE [Luvox] 50 mg PO HS@1800 10/09/19 [History] Balsalazide Disodium [Colazal] 2,250 mg PO TID #90 cap 10/11/19 [Rx] predniSONE See Taper PO DAILY #153 tab 10/11/19 [Rx] Follow up Appointment(s)/Referral(s): Sol Cerda MD [Primary Care Provider] - 1-2 days Elena Thompson MD [STAFF PHYSICIAN] - 2 Weeks Patient Instructions/Handouts: Gastrointestinal Bleeding (DC), Colitis (ED) Discharge Disposition: HOME SELF-CARE
== END 2019-10-11 16:10 | disposition home or self-care (01) ==
LOC: EC 14:24 → 3NMEDONC 18:50
PROVIDERS: ADMIT Internal Medicine; ATTEND Internal Medicine
DX: D62 Acute posthemorrhagic anemia (principal); K62.5 Hemorrhage of anus and rectum; K52.9 Noninfective gastroenteritis and colitis, unspecified; K63.89 Other specified diseases of intestine; E87.2 Acidosis; J44.9 Chronic obstructive pulmonary disease, unspecified; E03.9 Hypothyroidism, unspecified; I95.1 Orthostatic hypotension; I25.10 Atherosclerotic heart disease of native coronary artery without angina pectoris; E11.9 Type 2 diabetes mellitus without complications; I25.2 Old myocardial infarction; Z86.73 Personal history of transient ischemic attack (TIA), and cerebral infarction without residual deficits; E78.5 Hyperlipidemia, unspecified; F31.9 Bipolar disorder, unspecified; F43.10 Post-traumatic stress disorder, unspecified; I11.0 Hypertensive heart disease with heart failure; Z87.891 Personal history of nicotine dependence; R19.5 Other fecal abnormalities; Z95.1 Presence of aortocoronary bypass graft; Z79.890 Hormone replacement therapy; Z79.4 Long term (current) use of insulin; Z79.82 Long term (current) use of aspirin; Z79.899 Other long term (current) drug therapy
CPT/HCPCS: 96376 ×2; 96361; 96374; 99285; 36415; 93005; 88305; 80053 ×2; 83605; 84484; 85025 ×2; 85610; 85730; 82272; 45380; G0378 ×3; J2704; J7512; C9113 ×3

== ENCOUNTER → 2020-04-21 | Outpatient (CLI) | payer MEDICARE, OTHER ==
[2020-04-21 11:22] LABS: Basophils % (A) 0 %; Eosinophils # (A) 0.2 k/uL (0-0.7); Eosinophils % (A) 3 %; HCT 42.8 % (39.0-53.0); HGB 14.3 gm/dL (13.0-17.5); Lymphocytes # (A) 1.7 k/uL (1.0-4.8); Lymphocytes % (A) 20 %; MCH 30.4 pg (25.0-35.0); MCHC 33.5 g/dL (31.0-37.0); Mean Platelet Volume 7.5; Monocytes # (A) 0.6 k/uL (0-1.0); Monocytes % (A) 8 %; Neutrophils # (A) 5.7 k/uL (1.3-7.7); Neutrophils % (A) 68 %; Platelet Count 333 k/uL (150-450); RBC 4.71 m/uL (4.30-5.90); RDW 13.1 % (11.5-15.5); WBC 8.4 k/uL (3.8-10.6)
[2020-04-21 16:06] LABS: African American GFR (CKD) 65.4 (60.0-200.0); Albumin 4.4 g/dL (3.80-4.90); Albumin/Globulin Ratio 1.91 (1.60-3.17); Anion Gap 8.1 mmol/L (4.00-12.00); BUN/Creat Ratio 21.54 Ratio (12.00-20.00); Calcium 9.5 mg/dL (8.7-10.3); Carbon Dioxide 24.9 mmol/L (21.6-31.8); Globulin 2.3 g/dL (1.6-3.3); Non-African American GFR(CKD) 56.5 (60.0-200.0); Potassium 5.1 mmol/L (3.5-5.5); Total Bilirubin 0.4 mg/dL (0.2-1.2); Total Protein 6.7 g/dL (6.2-8.2)
== END | disposition home or self-care (01) ==
LOC: LABWHC1 09:05
PROVIDERS: ATTEND Nurse Practitioner
DX: K51.20 Ulcerative (chronic) proctitis without complications (principal)
CPT/HCPCS: 36415; 80053; 85025

== ENCOUNTER → 2020-08-09 | Outpatient (CLI) | payer MEDICARE, OTHER ==
[2020-08-09 08:55] LABS: Basophils % (A) 1 %; Eosinophils # (A) 0.4 k/uL (0-0.7); Eosinophils % (A) 6 %; HCT 43.3 % (39.0-53.0); Lymphocytes # (A) 1.4 k/uL (1.0-4.8); Lymphocytes % (A) 20 %; MCH 29.2 pg (25.0-35.0); MCHC 32.3 g/dL (31.0-37.0); MCV 90.3 fL (80.0-100.0); Mean Platelet Volume 7.1; Monocytes # (A) 0.5 k/uL (0-1.0); Monocytes % (A) 7 %; Neutrophils # (A) 4.6 k/uL (1.3-7.7); Neutrophils % (A) 66 %; Platelet Count 345 k/uL (150-450); RBC 4.79 m/uL (4.30-5.90)
[2020-08-09 16:44] LABS: African American GFR (CKD) 65.4 (60.0-200.0); Albumin 4.5 g/dL (3.80-4.90); Albumin/Globulin Ratio 1.8 (1.60-3.17); Anion Gap 9.3 mmol/L (4.00-12.00); BUN/Creat Ratio 20.77 Ratio (12.00-20.00); Calcium 9.7 mg/dL (8.7-10.3); Carbon Dioxide 22.7 mmol/L (21.6-31.8); Chol/HDL Ratio 3.7; Globulin 2.5 g/dL (1.6-3.3); LDL Cholesterol,Calculated 71.4 mg/dL (0.0-131.0); Non-African American GFR(CKD) 56.5 (60.0-200.0); Potassium 5.6 mmol/L (3.5-5.5); Total Bilirubin 0.5 mg/dL (0.3-1.2); VLDL Calculation 28.6 mg/dL (5.00-40.00)
[2020-08-09 16:51] LABS: T4, Free (Free Thyroxine) 1.3 ng/dL (0.80-1.80)
== END | disposition home or self-care (01) ==
LOC: LABWHC1 07:48
PROVIDERS: ATTEND Internal Medicine
DX: E03.9 Hypothyroidism, unspecified (principal); E11.9 Type 2 diabetes mellitus without complications; I10 Essential (primary) hypertension
CPT/HCPCS: 36415; 80053; 80061; 83036; 84439; 84443; 85025

== ENCOUNTER → 2020-10-25 | Outpatient (CLI) | payer MEDICARE, OTHER ==
[2020-10-25 15:49] LABS: Chol/HDL Ratio 3.62; LDL Cholesterol,Calculated 76.2 mg/dL (0.0-131.0); VLDL Calculation 25.8 mg/dL (5.00-40.00)
== END | disposition home or self-care (01) ==
LOC: LABWHC1 07:43
PROVIDERS: ATTEND Internal Medicine Cardiovascular Disease
DX: E78.2 Mixed hyperlipidemia (principal)
CPT/HCPCS: 36415; 80061; 84450; 84460

== ENCOUNTER → 2021-08-15 | Outpatient (CLI) | payer MEDICARE, OTHER ==
[2021-08-15 14:18] LABS: Basophils # (A) 0.05 X 10*3/uL (0.00-0.10); Basophils % (A) 0.5 %; Eosinophils # (A) 0.19 X 10*3/uL (0.04-0.35); Eosinophils % (A) 2.1 %; HGB 12.6 g/dL (13.0-17.0); Lymphocytes # (A) 1.72 X 10*3/uL (0.90-5.00); Lymphocytes % (A) 18.8 %; MCH 28.8 pg (27.0-32.0); MCHC 32.3 g/dL (32.0-37.0); Mean Platelet Volume 9.9 fL (9.5-12.2); Monocytes # (A) 0.64 X 10*3/uL (0.20-1.00); Neutrophils # (A) 6.53 X 10*3/uL (1.80-7.70); Neutrophils % (A) 71.3 %; Platelet Count 429 X 10*3/uL (140-440); RBC 4.38 X 10*6/uL (4.40-5.60); WBC 9.16 X 10*3/uL (4.50-10.00)
[2021-08-15 16:11] LABS: T4, Free (Free Thyroxine) 1.2 ng/dL (0.80-1.80)
[2021-08-15 16:14] LABS: Erythrocyte Sedimentation Rate 48 mm/Hr (0-20)
[2021-08-15 17:24] LABS: African American GFR (CKD) 59.4 (60.0-200.0); Albumin 4.4 g/dL (3.80-4.90); Albumin/Globulin Ratio 1.63 (1.60-3.17); BUN/Creat Ratio 17.86 Ratio (12.00-20.00); C Reactive Protein 0.9 mg/dL (0.0-0.8); Calcium 9.2 mg/dL (8.7-10.3); Globulin 2.7 g/dL (1.6-3.3); Non-African American GFR(CKD) 51.3 (60.0-200.0); Prostate Specific Antigen 0.8 ng/mL (0.0-4.5); Total Bilirubin 0.5 mg/dL (0.3-1.2); Total Protein 7.1 g/dL (6.2-8.2)
[2021-08-15 17:46] LABS: Hemoglobin A1C 8.2 % (4.0-6.0)
== END | disposition home or self-care (01) ==
LOC: LABWHC1 08:08
PROVIDERS: ATTEND Nurse Practitioner
DX: E11.9 Type 2 diabetes mellitus without complications (principal); E03.9 Hypothyroidism, unspecified; K51.90 Ulcerative colitis, unspecified, without complications
CPT/HCPCS: 36415; 80053; 82306; 83036; 84153; 84439; 84443; 85025; 85652; 86140

== ENCOUNTER → 2021-12-12 | Outpatient (CLI) | payer MEDICARE ==
[2021-12-12 11:16] LABS: AST 12 U/L (14-35)
[2021-12-12 11:17] LABS: ALT 9 U/L (10-49); Chol/HDL Ratio 4.48 Ratio; LDL Cholesterol,Calculated 91.9 mg/dL (0.0-131.0)
== END | disposition home or self-care (01) ==
LOC: LABWHC1 07:18
PROVIDERS: ATTEND Internal Medicine Cardiovascular Disease
DX: E78.2 Mixed hyperlipidemia (principal)
CPT/HCPCS: 36415; 80061; 84450; 84460

== ENCOUNTER → 2022-02-09 | Outpatient (CLI) | payer MEDICARE ==
[2022-02-09 15:25] LABS: Basophils # (A) 0.04 X 10*3/uL (0.00-0.10); Basophils % (A) 0.5 %; Eosinophils # (A) 0.18 X 10*3/uL (0.04-0.35); Eosinophils % (A) 2.1 %; HCT 42.9 % (39.6-50.0); HGB 13.5 g/dL (13.0-17.0); Immature Grans, Automated 0.2 %; Lymphocytes % (A) 18.2 %; MCH 28.5 pg (27.0-32.0); MCHC 31.5 g/dL (32.0-37.0); MCV 90.7 fL (80.0-97.0); Monocytes # (A) 0.63 X 10*3/uL (0.20-1.00); Monocytes % (A) 7.2 %; NRBC Per 100 WBC 0 /100 WBCS (0.0-0.0); Neutrophils # (A) 6.31 X 10*3/uL (1.80-7.70); Neutrophils % (A) 71.8 %; Platelet Count 436 X 10*3/uL (140-440); RBC 4.73 X 10*6/uL (4.40-5.60); RDW 13.2 % (11.5-14.5); WBC 8.78 X 10*3/uL (4.50-10.00)
[2022-02-09 16:29] LABS: Albumin 4.3 g/dL (3.8-4.9); Albumin/Globulin Ratio 1.52 (1.60-3.17); Anion Gap 17.3 mmol/L (10.00-18.00); BUN/Creat Ratio 17.8 Ratio (12.00-20.00); Blood Urea Nitrogen 21.9 mg/dL (9.0-27.0); Calcium 9.6 mg/dL (8.7-10.3); Carbon Dioxide 19.9 mmol/L (20.0-27.5); Globulin 2.8 g/dL (1.6-3.3); Non-African American GFR(CKD) 59.5 (60.0-200.0); Potassium 4.9 mmol/L (3.5-5.5); T4, Free (Free Thyroxine) 1.53 ng/dL (0.800-1.800); Total Bilirubin 0.3 mg/dL (0.30-1.20); Total Protein 7.1 g/dL (6.2-8.2)
== END | disposition home or self-care (01) ==
LOC: LABWHC1 08:22
PROVIDERS: ATTEND Internal Medicine
DX: E11.9 Type 2 diabetes mellitus without complications (principal); E78.5 Hyperlipidemia, unspecified; E66.9 Obesity, unspecified; E03.9 Hypothyroidism, unspecified; R53.82 Chronic fatigue, unspecified
CPT/HCPCS: 36415; 80053; 82607; 83036; 84439; 84443; 84481; 85025

== ENCOUNTER 2022-03-28 05:23 | Emergency (ER) | payer MEDICARE ==
[2022-03-28 05:35] VITALS: BP 151/86; PULSE 84; RESP 18; TEMP 98.2
--- NOTE | 2022-03-28 06:41 | ED ---
General Adult HPI - General Chief complaint: Urogenital Stated complaint: Male Time Seen by Provider: 03/28/22 06:31 Source: patient, RN notes reviewed Mode of arrival: ambulatory Limitations: no limitations - History of Present Illness Initial comments: 71-year-old male presents emergency Department chief complaint of genital issues. Patient states that his penis has shriveled up states that it is not extending past his scrotum. Patient states it's [place] difficulty urinating has no pain associated with. Patient states that this started only a few months ago he is scheduled see a local urologist in one month. Patient states he does not want to wait so he presented emergency department. Patient offers no other complaints. - Related Data Home Medications Medication Instructions Recorded Confirmed Levothyroxine Sodium [Synthroid] 75 mcg PO DAILY@0600 12/06/18 10/09/19 Insulin Degludec [Tresiba 20 units SQ HS 02/06/19 10/09/19 Flextouch U-100 Pen] metFORMIN HCL 500 mg PO AC-BID@0600,1800 02/06/19 10/09/19 Aspirin 81 mg PO DAILY@0600 10/09/19 10/09/19 Atorvastatin [Lipitor] 40 mg PO DAILY@0600 10/09/19 10/09/19 INSULIN ASPART (NovoLOG) [NovoLOG See Protocol SQ AC-TID 10/09/19 10/09/19 (formulary)] Metoprolol Tartrate [Lopressor] 12.5 mg PO BID@0600,1800 10/09/19 10/09/19 Midodrine [ProAmatine] 7.5 mg PO TID@0600,1200,1700 10/09/19 10/09/19 fluvoxaMINE [Luvox] 50 mg PO HS@1800 10/09/19 10/09/19 Previous Rx's Medication Instructions Recorded Balsalazide Disodium [Colazal] 2,250 mg PO TID #90 cap 10/11/19 predniSONE See Taper PO DAILY #153 tab 10/11/19 Clotrimazole Cream [Lotrimin Cream] 1 applic TOPICAL BID #15 gm 03/28/22 Allergies Allergy/AdvReac Type Severity Reaction Status Date / Time No Known Allergies Allergy Verified 03/28/22 05:35 Review of Systems ROS Statement: Those systems with pertinent positive or pertinent negative responses have been documented in the HPI. ROS Other: All systems not noted in ROS Statement are negative. Past Medical History Past Medical History: Coronary Artery Disease (CAD), Heart Failure, CVA/TIA, Diabetes Mellitus, Hyperlipidemia, Hypertension, Myocardial Infarction (IA), Syncope, Thyroid Disorder Additional Past Medical History / Comment(s): CT of the brain in September 2017 demonstrated old right lacunar infarct Last Myocardial Infarction Date:: 12/06/2018 History of Any Multi-Drug Resistant Organisms: None Reported Past Surgical History: Orthopedic Surgery Additional Past Surgical History / Comment(s): right hip, Past Anesthesia/Blood Transfusion Reactions: No Reported Reaction Past Psychological History: Bipolar, PTSD Smoking Status: Never smoker Past Alcohol Use History: None Reported Past Drug Use History: None Reported - Past Family History Father Family Medical History: No Reported History Mother Family Medical History: No Reported History General Exam Limitations: no limitations General appearance: alert, in no apparent distress Head exam: Present: atraumatic, normocephalic, normal inspection Respiratory exam: Present: normal lung sounds bilaterally. Absent: respiratory distress, wheezes, rales, rhonchi, stridor Cardiovascular Exam: Present: regular rate, normal rhythm, normal heart sounds. Absent: systolic murmur, diastolic murmur, rubs, gallop, clicks GI/Abdominal exam: Present: soft, normal bowel sounds. Absent: distended, tenderness, guarding, rebound, rigid exam: Present: other (Patient has a large amount of foreskin, there is some crusting on the glans noted, mild erythema skin is easily retracted, no other deformity or abnormality noted.) Course Vital Signs 03/28/22 05:33 Temperature 98.2 F Pulse Rate 84 Respiratory 18 Rate Blood Pressure 151/86 O2 Sat by Pulse 97 Oximetry Medical Decision Making - Medical Decision Making Patient has acute anatomical change related to aging, patient does have evidence of balanitis will be started on Lotrimin. He is scheduled follow-up with urology and return parameters discussed. Disposition Clinical Impression: Balanitis Disposition: HOME SELF-CARE Condition: Stable Instructions (If sedation given, give patient instructions): Balanitis (ED) Additional Instructions: Please return to the Emergency Department if symptoms worsen or any other concerns. Prescriptions: Clotrimazole Cream [Lotrimin Cream] 1 applic TOPICAL BID #15 gm Is patient prescribed a controlled substance at d/c from ED?: No Referrals: Sol Cerda MD [Primary Care Provider] - 1-2 days Time of Disposition: 06:41
== END 2022-03-28 06:57 | disposition home or self-care (01) ==
LOC: EC 05:23
DX: N48.1 Balanitis (principal); I11.0 Hypertensive heart disease with heart failure; I50.9 Heart failure, unspecified; E11.9 Type 2 diabetes mellitus without complications; I25.2 Old myocardial infarction; E07.9 Disorder of thyroid, unspecified; E78.5 Hyperlipidemia, unspecified; Z79.899 Other long term (current) drug therapy; Z79.82 Long term (current) use of aspirin; Z79.84 Long term (current) use of oral hypoglycemic drugs; Z79.4 Long term (current) use of insulin; Z79.890 Hormone replacement therapy
CPT/HCPCS: 99283

== ENCOUNTER 2022-11-06 07:11 | Inpatient (IN) | payer MEDICARE, OTHER ==
[2022-11-06 07:27] LABS: Glucose,Whole Blood 249 mg/dL (70-110)
--- NOTE | 2022-11-06 07:29 | ED ---
General Adult HPI - General Chief complaint: Altered Mental Status Stated complaint: Altered LOC Time Seen by Provider: 11/06/22 07:15 Source: patient, EMS, RN notes reviewed Mode of arrival: EMS Limitations: altered mental status - History of Present Illness Initial comments: Patient is a pleasant 71-year-old male presenting to the emergency department with concerns with reported change in mental status. Patient last known well yesterday evening. Patient is unable to provide any significant history. Patient does not answer questions appropriately. Patient was found this morning altered sitting in his chair. Patient was able to walk to the stretcher. - Related Data Home Medications Medication Instructions Recorded Confirmed Levothyroxine Sodium [Synthroid] 75 mcg PO DAILY@0600 12/06/18 10/09/19 Insulin Degludec [Tresiba 20 units SQ HS 02/06/19 10/09/19 Flextouch U-100 Pen] metFORMIN HCL 500 mg PO AC-BID@0600,1800 02/06/19 10/09/19 Aspirin 81 mg PO DAILY@0600 10/09/19 10/09/19 Atorvastatin [Lipitor] 40 mg PO DAILY@0600 10/09/19 10/09/19 INSULIN ASPART (NovoLOG) [NovoLOG See Protocol SQ AC-TID 10/09/19 10/09/19 (formulary)] Metoprolol Tartrate [Lopressor] 12.5 mg PO BID@0600,1800 10/09/19 10/09/19 Midodrine [ProAmatine] 7.5 mg PO TID@0600,1200,1700 10/09/19 10/09/19 fluvoxaMINE [Luvox] 50 mg PO HS@1800 10/09/19 10/09/19 Previous Rx's Medication Instructions Recorded Balsalazide Disodium [Colazal] 2,250 mg PO TID #90 cap 10/11/19 predniSONE See Taper PO DAILY #153 tab 10/11/19 Clotrimazole Cream [Lotrimin Cream] 1 applic TOPICAL BID #15 gm 03/28/22 Allergies Allergy/AdvReac Type Severity Reaction Status Date / Time No Known Allergies Allergy Verified 03/28/22 05:35 Review of Systems ROS Statement: Those systems with pertinent positive or pertinent negative responses have been documented in the HPI. ROS Other: All systems not noted in ROS Statement are negative. Limitations: ROS unobtainable due to patients medical condition Gastrointestinal: Reports: vomiting Past Medical History Past Medical History: Coronary Artery Disease (CAD), Heart Failure, CVA/TIA, Diabetes Mellitus, Hyperlipidemia, Hypertension, Myocardial Infarction (VT), Syncope, Thyroid Disorder Additional Past Medical History / Comment(s): CT of the brain in September 2017 demonstrated old right lacunar infarct Last Myocardial Infarction Date:: 12/06/2018 History of Any Multi-Drug Resistant Organisms: None Reported Past Surgical History: Orthopedic Surgery Additional Past Surgical History / Comment(s): right hip, Past Anesthesia/Blood Transfusion Reactions: No Reported Reaction Past Psychological History: Bipolar, PTSD Smoking Status: Never smoker Past Alcohol Use History: None Reported Past Drug Use History: None Reported - Past Family History Father Family Medical History: No Reported History Mother Family Medical History: No Reported History General Exam Limitations: altered mental status, physical limitation General appearance: alert, other (Emesis on patient's shirt. Patient follows some commands however needs to be prompted multiple times to follow others. Patient answers some questions inappropriately with limited 1 word answers, usually states okay.) Head exam: Present: atraumatic Eye exam: Present: normal appearance, PERRL, EOMI ENT exam: Present: normal oropharynx Neck exam: Present: normal inspection. Absent: tenderness, meningismus Respiratory exam: Present: normal lung sounds bilaterally Cardiovascular Exam: Present: regular rate, normal rhythm GI/Abdominal exam: Present: soft. Absent: tenderness Extremities exam: Present: normal inspection Neurological exam: Present: alert, altered, CN II-XII intact. Absent: motor sensory deficit Expanded Neurological exam: Present: protecting the airway Patient oriented to: Present: person. Absent: place, time Motor strength exam: RUE: 5, LUE: 5, RLE: 5, LLE: 5 Eye Response: (4) open spontaneously Motor Response: (6) obeys commands Verbal Response: (3) inappropriate words Psychiatric exam: Present: flat affect Skin exam: Present: normal color Course Vital Signs 11/06/22 11/06/22 11/06/22 07:14 08:23 09:10 Temperature 97.6 F Pulse Rate 67 67 77 Respiratory 20 20 18 Rate Blood Pressure 212/96 216/113 198/83 O2 Sat by Pulse 98 100 98 Oximetry 11/06/22 09:27 Temperature Pulse Rate Respiratory Rate Blood Pressure 192/142 O2 Sat by Pulse Oximetry EKG Findings - EKG Results: EKG: interpreted by ERMD (Left axis. Inferior Q waves.), sinus rhythm, normal ST/T Medical Decision Making - Medical Decision Making Patient reevaluated and unchanged. Patient and family updated on results and plan. Patient will need admission with neurology evaluation. Dr. Sanchez has been paged for admission covering Dr. Valenzuela. - Lab Data Result diagrams: 11/06/22 07:31 11/06/22 07:31 Lab Results 11/06/22 11/06/22 11/06/22 Range/Units 07:25 07:31 07:31 WBC 10.1 (3.8-10.6) k/uL RBC 4.79 (4.30-5.90) m/uL Hgb 14.4 (13.0-17.5) gm/dL Hct 42.4 (39.0-53.0) % MCV 88.7 (80.0-100.0) fL MCH 30.1 (25.0-35.0) pg MCHC 33.9 (31.0-37.0) g/dL RDW 12.8 (11.5-15.5) % Plt Count 411 (150-450) k/uL MPV 7.3 Neutrophils % 72 % Lymphocytes % 19 % Monocytes % 5 % Eosinophils % 2 % Basophils % 1 % Neutrophils # 7.3 (1.3-7.7) k/uL Lymphocytes # 1.9 (1.0-4.8) k/uL Monocytes # 0.5 (0-1.0) k/uL Eosinophils # 0.2 (0-0.7) k/uL Basophils # 0.1 (0-0.2) k/uL PT 9.7 (9.0-12.0) sec INR 0.9 (<1.2) APTT 21.4 L (22.0-30.0) sec Sodium (137-145) mmol/L Potassium (3.5-5.1) mmol/L Chloride (98-107) mmol/L Carbon Dioxide (22-30) mmol/L Anion Gap mmol/L BUN (9-20) mg/dL Creatinine (0.66-1.25) mg/dL Est GFR (CKD-EPI)AfAm (>60 ml/min/1.73 sqM) Est GFR (CKD-EPI)NonAf (>60 ml/min/1.73 sqM) Glucose (74-99) mg/dL POC Glucose (mg/dL) 249 H (70-110) mg/dL POC Glu Tractor Trailer Mechanic ID Dl Rodríguez Calcium (8.4-10.2) mg/dL Total Bilirubin (0.2-1.3) mg/dL AST (17-59) U/L ALT (4-49) U/L Alkaline Phosphatase (38-126) U/L Troponin I (0.000-0.034) ng/mL Total Protein (6.3-8.2) g/dL Albumin (3.5-5.0) g/dL Urine Color Urine Appearance (Clear) Urine pH (5.0-8.0) Ur Specific [place] (1.001-1.035) Urine Protein (Negative) Urine Glucose (UA) (Negative) Urine Ketones (Negative) Urine Blood (Negative) Urine Nitrite (Negative) Urine Bilirubin (Negative) Urine Urobilinogen (<2.0) mg/dL Ur Leukocyte Esterase (Negative) Urine RBC (0-5) /hpf Urine WBC (0-5) /hpf Ur Squamous Epith Cells (0-4) /hpf Hyaline Casts (0-2) /lpf Urine Opiates Screen (NotDetected) Ur Oxycodone Screen (NotDetected) Urine Methadone Screen (NotDetected) Ur Propoxyphene Screen (NotDetected) Ur Barbiturates Screen (NotDetected) U Tricyclic Antidepress (NotDetected) Ur Phencyclidine Scrn (NotDetected) Ur Amphetamines Screen (NotDetected) U Methamphetamines Scrn (NotDetected) U Benzodiazepines Scrn (NotDetected) Urine Cocaine Screen (NotDetected) U Marijuana (THC) Screen (NotDetected) Serum Alcohol mg/dL 11/06/22 11/06/22 11/06/22 Range/Units 07:31 07:31 09:28 WBC (3.8-10.6) k/uL RBC (4.30-5.90) m/uL Hgb (13.0-17.5) gm/dL Hct (39.0-53.0) % MCV (80.0-100.0) fL MCH (25.0-35.0) pg MCHC (31.0-37.0) g/dL RDW (11.5-15.5) % Plt Count (150-450) k/uL MPV Neutrophils % % Lymphocytes % % Monocytes % % Eosinophils % % Basophils % % Neutrophils # (1.3-7.7) k/uL Lymphocytes # (1.0-4.8) k/uL Monocytes # (0-1.0) k/uL Eosinophils # (0-0.7) k/uL Basophils # (0-0.2) k/uL PT (9.0-12.0) sec INR (<1.2) APTT (22.0-30.0) sec Sodium 137 (137-145) mmol/L Potassium 4.5 (3.5-5.1) mmol/L Chloride 103 (98-107) mmol/L Carbon Dioxide 21 L (22-30) mmol/L Anion Gap 13 mmol/L BUN 20 (9-20) mg/dL Creatinine 1.09 (0.66-1.25) mg/dL Est GFR (CKD-EPI)AfAm 80 (>60 ml/min/1.73 sqM) Est GFR (CKD-EPI)NonAf 69 (>60 ml/min/1.73 sqM) Glucose 260 H (74-99) mg/dL POC Glucose (mg/dL) (70-110) mg/dL POC Glu Tractor Trailer Mechanic ID Calcium 9.1 (8.4-10.2) mg/dL Total Bilirubin 0.6 (0.2-1.3) mg/dL AST 18 (17-59) U/L ALT 14 (4-49) U/L Alkaline Phosphatase 98 (38-126) U/L Troponin I <0.012 (0.000-0.034) ng/mL Total Protein 8.1 (6.3-8.2) g/dL Albumin 4.5 (3.5-5.0) g/dL Urine Color Yellow Urine Appearance Clear (Clear) Urine pH 7.0 (5.0-8.0) Ur Specific [place] 1.020 (1.001-1.035) Urine Protein 1+ H (Negative) Urine Glucose (UA) 4+ H (Negative) Urine Ketones 1+ H (Negative) Urine Blood Negative (Negative) Urine Nitrite Negative (Negative) Urine Bilirubin Negative (Negative) Urine Urobilinogen <2.0 (<2.0) mg/dL Ur Leukocyte Esterase Negative (Negative) Urine RBC 3 (0-5) /hpf Urine WBC 1 (0-5) /hpf Ur Squamous Epith Cells <1 (0-4) /hpf Hyaline Casts 1 (0-2) /lpf Urine Opiates Screen Not Detected (NotDetected) Ur Oxycodone Screen Not Detected (NotDetected) Urine Methadone Screen Not Detected (NotDetected) Ur Propoxyphene Screen Not Detected (NotDetected) Ur Barbiturates Screen Not Detected (NotDetected) U Tricyclic Antidepress Not Detected (NotDetected) Ur Phencyclidine Scrn Not Detected (NotDetected) Ur Amphetamines Screen Not Detected (NotDetected) U Methamphetamines Scrn Not Detected (NotDetected) U Benzodiazepines Scrn Not Detected (NotDetected) Urine Cocaine Screen Not Detected (NotDetected) U Marijuana (THC) Screen Not Detected (NotDetected) Serum Alcohol <10 mg/dL - Radiology Data Radiology results: report reviewed (CT brain does not reveal acute abnormality. Chronic small vessel disease.) Interpreted by me: Chest x-ray does not reveal acute cardiopulmonary process. Disposition Clinical Impression: Altered mental status Disposition: ADMITTED IP TO THIS HOSP Is patient prescribed a controlled substance at d/c from ED?: No Referrals: Sol Cerda MD [Primary Care Provider] - 1-2 days Time of Disposition: 10:09
[2022-11-06] MEDS ORDERED: ONDANSETRON 4 MG/2 ML VIAL IVP STA ×2 (07:30→09:39)
[2022-11-06 07:39] LABS: Basophils # (A) 0.1 k/uL (0-0.2); Basophils % (A) 1 %; Eosinophils # (A) 0.2 k/uL (0-0.7); Eosinophils % (A) 2 %; HCT 42.4 % (39.0-53.0); HGB 14.4 gm/dL (13.0-17.5); Lymphocytes # (A) 1.9 k/uL (1.0-4.8); Lymphocytes % (A) 19 %; MCH 30.1 pg (25.0-35.0); MCHC 33.9 g/dL (31.0-37.0); MCV 88.7 fL (80.0-100.0); Mean Platelet Volume 7.3; Monocytes # (A) 0.5 k/uL (0-1.0); Monocytes % (A) 5 %; Neutrophils # (A) 7.3 k/uL (1.3-7.7); Neutrophils % (A) 72 %; Platelet Count 411 k/uL (150-450); RBC 4.79 m/uL (4.30-5.90); RDW 12.8 % (11.5-15.5); WBC 10.1 k/uL (3.8-10.6)
[2022-11-06 07:51] LABS: ALT 14 U/L (4-49); AST 18 U/L (17-59); African American GFR (CKD) 80 (>60 ml/min/1.73 sqM); Albumin 4.5 g/dL (3.5-5.0); Alcohol <10 mg/dL; Alkaline Phosphatase 98 U/L (38-126); Anion Gap 13 mmol/L; Blood Urea Nitrogen 20 mg/dL (9-20); Calcium 9.1 mg/dL (8.4-10.2); Carbon Dioxide 21 mmol/L (22-30); Chloride 103 mmol/L (98-107); Glucose 260 mg/dL (74-99); Non-African American GFR(CKD) 69 (>60 ml/min/1.73 sqM); Potassium 4.5 mmol/L (3.5-5.1); Sodium 137 mmol/L (137-145); Total Bilirubin 0.6 mg/dL (0.2-1.3); Total Protein 8.1 g/dL (6.3-8.2)
--- NOTE | 2022-11-06 07:56 | CT ---
EXAMINATION TYPE: CT brain wo con CT DLP: 1158.4 mGycm, Automated exposure control for dose reduction was used. DATE OF EXAM: 11/06/2022 7:44 AM COMPARISON: CT brain 02/06/2019. CLINICAL INDICATION:Male, 71 years old with history of Altered mental status, TECHNIQUE: Brain: Axial CT images of the brain were obtained with coronal and sagittal reformats created and rev iewed. Contrast used: None. Oral contrast used: None. FINDINGS: Brain: Extra-axial spaces: No abnormal extra-axial fluid collections. Ventricular system: Dilatation in proportion to cerebral atrophy. Cerebral parenchyma: Cerebral atrophy. No acute intraparenchymal hemorrhage or mass effect. The mosley -white junction is well differentiated. Scattered hypoattenuating areas are seen within the white mat ter. Cerebellum: Unremarkable. Mass effect: No evidence of midline shift. Intracranial vasculature: unremarkable Soft tissues: Normal. Calvarium/osseous structures: No depressed skull fracture. Paranasal sinuses and mastoid air cells: Mild scattered paranasal sinus disease. Visualized orbits: Orbital contents are intact. IMPRESSION: 1. No acute intracranial process. 2. Nonspecific white matter changes, likely secondary to chronic small vessel ischemic disease.
--- NOTE | 2022-11-06 07:58 | XR ---
EXAMINATION TYPE: XR chest 2V DATE OF EXAM: 11/06/2022 7:46 AM COMPARISON: Chest radiographs from 02/06/2019 TECHNIQUE: XR chest 2V Frontal and lateral views of the chest. CLINICAL INDICATION:Male, 71 years old with history of altered mental status; FINDINGS: Lungs/Pleura: Bibasilar atelectasis. No evidence for pneumothorax, pleural effusion or focal consolid ation. Pulmonary vascularity: Unremarkable. Heart/mediastinum: Cardiomediastinal silhouette is unremarkable. Musculoskeletal: No acute osseous pathology. Midline sternotomy wires are noted. IMPRESSION: Low lung volumes, bibasilar atelectasis, No acute cardiopulmonary disease/process.
[2022-11-06 08:13] LABS: INR 0.9 (<1.2); Prothrombin Time 9.7 sec (9.0-12.0)
[2022-11-06 08:26] LABS: Partial Thromboplastin Time 21.4 sec (22.0-30.0)
[2022-11-06] MEDS ORDERED: hydrALAZINE HCL 20 MG/ML 1 ML VIAL IVP STA ×2 (08:30→09:39)
[2022-11-06 09:41] LABS: Appearance,Urine Clear (Clear); Bilirubin,Urine Negative (Negative); Blood,Urine Negative (Negative); Color,Urine Yellow; Glucose,Urine (UA) 4+ (Negative); Hyaline Casts,Urine 1 /lpf (0-2); Ketones,Urine 1+ (Negative); Leukocyte Esterase,Urine Negative (Negative); Nitrite,Urine Negative (Negative); Protein,Urine 1+ (Negative); RBC,Urine 3 /hpf (0-5); Squamous Epithelial Cell,Urine <1 /hpf (0-4); Urobilinogen,Urine <2.0 mg/dL (<2.0); WBC,Urine 1 /hpf (0-5)
[2022-11-06 09:53] LABS: Amphetamine Screen,Urine Not Detected (NotDetected); Barbiturate Screen,Urine Not Detected (NotDetected); Benzodiazepines Screen,Urine Not Detected (NotDetected); Cocaine Screen,Urine Not Detected (NotDetected); Methadone Screen, Urine Not Detected (NotDetected); Opiate Screen,Urine Not Detected (NotDetected); Oxycodone Screen, Urine Not Detected (NotDetected); Phencyclidine Screen,Urine Not Detected (NotDetected); Tricyclic Antidepressant,Urine Not Detected (NotDetected); Urn Cannabinoid Scrn Not Detected (NotDetected)
[2022-11-06] MEDS ORDERED: ACETAMINOPHEN TAB 325 MG TAB PO PRN (10:09)
[2022-11-06] MEDS ORDERED: ONDANSETRON 4 MG/2 ML VIAL IVP PRN (10:09)
[2022-11-06] MEDS ORDERED: NALOXONE 0.4 MG/ML 1 ML VIAL IV PRN (10:09)
[2022-11-06] MEDS ORDERED: SODIUM CHLORIDE 0.9% 1,000 ML IV SCH ×2 (10:15→19:15)
[2022-11-06] MEDS ORDERED: LABETALOL SYRINGE 5 MG/ML IVP STA (10:33)
--- NOTE | 2022-11-06 12:07 | P.HPIM ---
History of Present Illness Patient's 71-year-old male came in the emergency department with complaints of altered mental status and patient is in usual state of health until yesterday evening and found to be completely confused today is presently alert oriented 0 patient cannot follow any commands at this time patient doesn't answer much but appeared to understand. Patient was having nausea vomiting in the ER. Patient doesn't have any fever chills urine drug screen is negative. Home medications were reviewed and patient is on Fluoximine that chago that can cause altered mental status. When asked to squeeze fingers patient did understand the command trying to do that but does have generalized weakness. Patient doesn't have any leukocytosis chest x-ray did not show any significant abnormality. CT of the head showed some chronic microvascular ischemic changes but nothing acute. Neurology was consulted. REVIEW OF SYSTEMS: Unable to assess due to patient's clinical condition PHYSICAL EXAMINATION: GENERAL: The patient is alert and oriented x0, not in any acute distress. Well developed, well nourished. HEENT: Pupils are round and equally reacting to light. EOMI. No scleral icterus. No conjunctival pallor. Normocephalic, atraumatic. No pharyngeal erythema. No thyromegaly. CARDIOVASCULAR: S1 and S2 present. No murmurs, rubs, or gallops. PULMONARY: Chest is clear to auscultation, no wheezing or crackles. ABDOMEN: Soft, nontender, nondistended, normoactive bowel sounds. No palpable organomegaly. MUSCULOSKELETAL: No joint swelling or deformity. EXTREMITIES: No cyanosis, clubbing, or pedal edema. NEUROLOGICAL: Completely confused physical exam is limited because patient cannot follow commands. SKIN: No rashes. Assessment and plan -Altered mental status: Etiology is not clear at this time there is no obvious infection that is evident except for some nausea vomiting. The patient probably will need abdominal imaging. Patient will be started on Protonix. Neurology was consulted patient may need further workup for stroke, will need an EEG to clearly appears to be encephalopathic but etiology is not clear. High-nausea vomiting: We will obtain abdominal x-ray, patient will be started on Protonix continue to monitor liver function. -Coronary artery disease patient on aspirin and statin which will be continued on heparin type 2 diabetes mellitus patient will be continued on long-acting insulin hold off on pre-meal insulin patient will be continue on sliding scale insulin rest of the home that week medications will be held -Hyperlipidemia -Hypertension -Hypothyroidism next and-history of CVA in 2018 DVT prophylaxis: Lovenox Past Medical History Past Medical History: Coronary Artery Disease (CAD), Heart Failure, CVA/TIA, Diabetes Mellitus, Hyperlipidemia, Hypertension, Myocardial Infarction (CT), Syncope, Thyroid Disorder Additional Past Medical History / Comment(s): CT of the brain in September 2017 demonstrated old right lacunar infarct Last Myocardial Infarction Date:: 12/06/2018 History of Any Multi-Drug Resistant Organisms: None Reported Past Surgical History: Orthopedic Surgery Additional Past Surgical History / Comment(s): right hip, Past Anesthesia/Blood Transfusion Reactions: No Reported Reaction Past Psychological History: Bipolar, PTSD Smoking Status: Never smoker Past Alcohol Use History: None Reported Past Drug Use History: None Reported - Past Family History Father Family Medical History: No Reported History Mother Family Medical History: No Reported History Medications and Allergies Home Medications Medication Instructions Recorded Confirmed Type metFORMIN HCL 500 mg PO TID 02/06/19 11/06/22 History Atorvastatin [Lipitor] 40 mg PO DAILY 10/09/19 11/06/22 History INSULIN ASPART (NovoLOG) [NovoLOG 15 unit SQ AC-TID 10/09/19 11/06/22 History (formulary)] Metoprolol Tartrate [Lopressor] 12.5 mg PO BID 10/09/19 11/06/22 History Midodrine [ProAmatine] 7.5 mg PO TID 10/09/19 11/06/22 History fluvoxaMINE [Luvox] 50 mg PO DAILY 10/09/19 11/06/22 History Aspirin EC [Ecotrin] 325 mg PO DAILY 11/06/22 11/06/22 History Insulin Glargine,Hum.rec.anlog 32 units SQ HS 11/06/22 11/06/22 History [Toujeo Solostar] Levothyroxine Sodium [Synthroid] 100 mcg PO DAILY 11/06/22 11/06/22 History Semaglutide [Ozempic] 0.25 mg SQ Q7D 11/06/22 11/06/22 History Allergies Allergy/AdvReac Type Severity Reaction Status Date / Time No Known Allergies Allergy Verified 03/28/22 05:35 Physical Exam Vitals: Vital Signs Temp Pulse Resp BP Pulse Ox 11/06/22 11:05 104 H 18 142/57 98 11/06/22 10:12 98.4 F 104 H 18 205/95 99 11/06/22 09:27 192/142 11/06/22 09:10 77 18 198/83 98 11/06/22 08:23 67 20 216/113 100 11/06/22 07:14 97.6 F 67 20 212/96 98 Intake and Output 11/05/22 11/06/22 11/06/22 22:59 06:59 14:59 Other: Weight 92.986 kg Results CBC & Chem 7: 11/06/22 07:31 11/06/22 07:31 Labs: Abnormal Lab Results - Last 24 Hours (Table) 11/06/22 11/06/22 11/06/22 Range/Units 07:25 07:31 07:31 APTT 21.4 L (22.0-30.0) sec Carbon Dioxide 21 L (22-30) mmol/L Glucose 260 H (74-99) mg/dL POC Glucose (mg/dL) 249 H (70-110) mg/dL Urine Protein (Negative) Urine Glucose (UA) (Negative) Urine Ketones (Negative) 11/06/22 Range/Units 09:28 APTT (22.0-30.0) sec Carbon Dioxide (22-30) mmol/L Glucose (74-99) mg/dL POC Glucose (mg/dL) (70-110) mg/dL Urine Protein 1+ H (Negative) Urine Glucose (UA) 4+ H (Negative) Urine Ketones 1+ H (Negative)
--- NOTE | 2022-11-06 12:34 | XR ---
EXAMINATION TYPE: XR abdomen 2V DATE OF EXAM: 11/06/2022 12:23 PM INDICATION: Patient age:Male; 71 years old; Reason for study: Nausea vomiting; COMPARISON: 12/08/2015 TECHNIQUE: Two views of the abdomen were obtained. FINDINGS: The bowel gas pattern is nonspecific without dilated loops of small or large bowel. There i s no evidence for organomegaly or pneumoperitoneum. The osseous structures are intact. No abnormal calcifications are present. Fecal material and gas are demonstrated throughout the colon and rectum. Sternotomy wires are present. Fixation hardware involving the right pelvis are present and appear int act. IMPRESSION: Nonspecific bowel gas pattern without radiographic evidence for acute process.
[2022-11-06 17:42] LABS: Glucose,Whole Blood 392 mg/dL (70-110)
[2022-11-06] MEDS ORDERED: VANCOMYCIN IV PER PHARMACY 1 EACH MISC MISCELLANE PRN (17:56)
[2022-11-06] MEDS ORDERED: DEXTROSE 50% SYRINGE 50 ML IVP PRN ×2 (18:33)
[2022-11-06] MEDS ORDERED: INSULIN ASPART (NovoLOG) 100 UNIT/ML VIAL SQ SCH (18:35)
[2022-11-06] MEDS: VANCOMYCIN 1,500 MG in SODIUM CHLORIDE 0.9% 500 ML 500 ML IVPB SCH (20:01)
[2022-11-06] MEDS ORDERED: Potassium Replacement Protocol 1 EACH MISC MISCELLANE PRN (20:18)
[2022-11-06] MEDS ORDERED: INSULIN REGULAR BOLUS (FROM DRIP BAG) IV ONE (20:18)
[2022-11-06] MEDS ORDERED: Magnesium Replacement Protocol 1 EACH MISC MISCELLANE PRN (20:18)
[2022-11-06 20:19] LABS: Glucose,Whole Blood 465 mg/dL (70-110)
[2022-11-06] MEDS ORDERED: INSULIN DETEMIR (LEVEMIR) 100 UNIT/ML SYR SQ SCH (21:00)
[2022-11-06 21:15] LABS: Potassium 4.6 mmol/L (3.5-5.1)
[2022-11-06 21:19] LABS: Basophils % (A) 0 %; Eosinophils % (A) 0 %; HCT 38.2 % (39.0-53.0); HGB 12.7 gm/dL (13.0-17.5); Lymphocytes # (A) 0.7 k/uL (1.0-4.8); Lymphocytes % (A) 5 %; MCH 29.4 pg (25.0-35.0); MCHC 33.4 g/dL (31.0-37.0); MCV 88.3 fL (80.0-100.0); Mean Platelet Volume 8.1; Monocytes # (A) 0.7 k/uL (0-1.0); Monocytes % (A) 5 %; Neutrophils # (A) 12.7 k/uL (1.3-7.7); Neutrophils % (A) 90 %; Platelet Count 395 k/uL (150-450); RBC 4.33 m/uL (4.30-5.90); WBC 14.1 k/uL (3.8-10.6)
[2022-11-06 21:48] LABS: Glucose,Whole Blood 301 mg/dL (70-110)
[2022-11-06] MEDS: INSULIN REGULAR 100 UNIT in SODIUM CHLORIDE 0.9% 100 ML IV SCH (21:51)
[2022-11-06] MEDS: SODIUM CHLORIDE 0.9% 1,000 ML IV SCH (22:05)
[2022-11-06] MEDS: METOPROLOL TARTRATE 12.5 MG TAB PO SCH (22:41)
[2022-11-06] MEDS: LACTULOSE 20 GM/30 ML CUP PO SCH (22:41)
[2022-11-06 22:54] LABS: Glucose,Whole Blood 191 mg/dL (70-110)
[2022-11-06] MEDS: D5-0.45% NACL WITH KCL 20MEQ/L 1,000 ML IV SCH (23:15)
[2022-11-06] MEDS: PIPERACILLIN-TAZOBACTAM 3.375 GM in SODIUM CHLORIDE 0.9% 100 ML IVPB SCH (23:58)
[2022-11-07 00:01] LABS: Glucose,Whole Blood 140 mg/dL (70-110)
--- NOTE | 2022-11-07 00:43 | US ---
EXAMINATION TYPE: US carotid duplex BILAT DATE OF EXAM: 11/06/2022 COMPARISON: 12/07/18 CLINICAL HISTORY: AMS. Altered mental status. Left side limited TECHNIQUE: Carotid duplex ultrasound examination. Indirect Doppler criteria was utilized. FINDINGS: EXAM MEASUREMENTS: RIGHT: Peak Systolic Velocity (PSV) cm/sec ----- Right CCA: 87.3 ----- Right ICA: 203.5 ----- Right ECA: 164.7 ICA/CCA ratio: 2.3 RIGHT: End Diastole cm/sec ----- Right CCA: 11.6 ----- Right ICA: 36.2 ----- Right ECA: 4.4 LEFT: Peak Systolic Velocity (PSV) cm/sec ----- Left CCA: 104.2 ----- Left ICA: 166.1 ----- Left ECA: 187.3 ICA/CCA ratio: 1.6 LEFT: End Diastole cm/sec ----- Left CCA: 13.6 ----- Left ICA: 15.6 ----- Left ECA: 13.0 VERTEBRALS (direction of flow): Right Vertebral: Antegrade Left Vertebral: Not vis Rhythm: Normal TRANSPORTATION JOB TITLES NOTES: Plaque seen in bilateral bulbs. Elevated right ICA velocity IMPRESSION: There is bilateral elevated velocities in the internal and external carotid arteries consistent with 50-70% stenosis. Bilateral plaque formation. There is antegrade flow in the right vertebral artery and nonvisualization of the left vertebral awais ry which could be occluded. Criteria for Assigning % of Stenosis / Diameter reduction (Estimation based on the indirect measurements of the internal carotid artery velocities (ICA PSV). 1. Normal (no stenosis)=ICA PSV < 125 cm/s: ratio < 2.0: ICA EDV<40 cm/s. 2. Less than 50% stenosis=ICA PSV < 125 cm/s: ratio < 2.0: ICA EDV<40 cm/s. 3. 50 to 69% stenosis=ICA PSV of 125 to 230 cm/s: ration 2.0 ? 4.0: ICA EDV 40-100 cm/s. 4. Greater than 70% stenosis to near occlusion= ICA PSV > 230 cm/s: ratio > 4.0: ICA EDV > 100 cm/s. 5. Near occlusion= ICA PSV velocities may be low or undetectable: variable ratio and ICA EDV. 6. Total occlusion=unable to detect flow.
[2022-11-07 00:51] LABS: Glucose,Whole Blood 174 mg/dL (70-110)
[2022-11-07 01:30] LABS: African American GFR (CKD) 57 (>60 ml/min/1.73 sqM); Anion Gap 12 mmol/L; Blood Urea Nitrogen 27 mg/dL (9-20); Carbon Dioxide 22 mmol/L (22-30); Chloride 107 mmol/L (98-107); Glucose 82 mg/dL (74-99); Non-African American GFR(CKD) 49 (>60 ml/min/1.73 sqM); Potassium 4.4 mmol/L (3.5-5.1); Sodium 141 mmol/L (137-145)
[2022-11-07 02:14] LABS: Glucose,Whole Blood 178 mg/dL (70-110)
[2022-11-07 03:17] LABS: T4, Free (Free Thyroxine) 1.42 ng/dL (0.78-2.19)
[2022-11-07 03:37] LABS: Glucose,Whole Blood 78 mg/dL (70-110)
[2022-11-07 03:53] LABS: Glucose,Whole Blood 76 mg/dL (70-110)
[2022-11-07 04:03] LABS: Basophils % (A) 0 %; Eosinophils # (A) 0.2 k/uL (0-0.7); Eosinophils % (A) 2 %; HCT 36.3 % (39.0-53.0); HGB 11.9 gm/dL (13.0-17.5); Lymphocytes # (A) 1.4 k/uL (1.0-4.8); Lymphocytes % (A) 9 %; MCHC 32.9 g/dL (31.0-37.0); MCV 88.2 fL (80.0-100.0); Mean Platelet Volume 7.2; Monocytes # (A) 1.4 k/uL (0-1.0); Monocytes % (A) 9 %; Neutrophils # (A) 11.3 k/uL (1.3-7.7); Neutrophils % (A) 77 %; Platelet Count 379 k/uL (150-450); RBC 4.11 m/uL (4.30-5.90); RDW 13.2 % (11.5-15.5); WBC 14.7 k/uL (3.8-10.6)
[2022-11-07 04:15] LABS: ALT 13 U/L (4-49); AST 22 U/L (17-59); African American GFR (CKD) 60 (>60 ml/min/1.73 sqM); Albumin 3.9 g/dL (3.5-5.0); Alkaline Phosphatase 76 U/L (38-126); Anion Gap 10 mmol/L; Blood Urea Nitrogen 27 mg/dL (9-20); Calcium 8.6 mg/dL (8.4-10.2); Carbon Dioxide 22 mmol/L (22-30); Chloride 108 mmol/L (98-107); Glucose 78 mg/dL (74-99); Non-African American GFR(CKD) 52 (>60 ml/min/1.73 sqM); Potassium 3.9 mmol/L (3.5-5.1); Sodium 140 mmol/L (137-145); Total Bilirubin 0.6 mg/dL (0.2-1.3); Total Protein 6.9 g/dL (6.3-8.2)
[2022-11-07 06:18] LABS: Glucose,Whole Blood 249 mg/dL (70-110)
[2022-11-07 06:18] LABS: Glucose,Whole Blood 202 mg/dL (70-110)
[2022-11-07] MEDS: D5-0.45% NACL WITH KCL 20MEQ/L 1,000 ML IV SCH (06:27)
[2022-11-07] MEDS: SODIUM CHLORIDE 0.9% 1,000 ML IV SCH ×3 (06:44→23:04)
[2022-11-07] MEDS: LEVOTHYROXINE 100 MCG TAB PO SCH (06:44)
[2022-11-07] MEDS: METOPROLOL TARTRATE 12.5 MG TAB PO SCH ×2 (06:44→16:34)
[2022-11-07 06:52] LABS: Glucose,Whole Blood 301 mg/dL (70-110)
[2022-11-07] MEDS ORDERED: INSULIN ASPART (NovoLOG) 100 UNIT/ML VIAL SQ SCH (07:30)
[2022-11-07] MEDS: VANCOMYCIN 1,500 MG in SODIUM CHLORIDE 0.9% 500 ML 500 ML IVPB SCH (08:02)
[2022-11-07 08:03] LABS: Glucose,Whole Blood 323 mg/dL (70-110)
[2022-11-07] MEDS: INSULIN REGULAR 100 UNIT in SODIUM CHLORIDE 0.9% 100 ML IV SCH (08:19)
[2022-11-07 09:19] LABS: Glucose,Whole Blood 328 mg/dL (70-110)
[2022-11-07 09:20] LABS: Chol/HDL Ratio 4.22 Ratio; LDL Cholesterol,Calculated 81.8 mg/dL (0.0-131.0)
[2022-11-07] MEDS: ASPIRIN 325 MG TAB PO SCH (09:32)
[2022-11-07] MEDS: LACTULOSE 20 GM/30 ML CUP PO SCH ×3 (09:32→20:16)
[2022-11-07] MEDS: PANTOPRAZOLE 40 MG/10 ML VIAL IV SCH (09:32)
[2022-11-07] MEDS: ATORVASTATIN 40 MG TAB PO SCH (09:32)
[2022-11-07 10:35] LABS: Glucose,Whole Blood 282 mg/dL (70-110)
[2022-11-07] MEDS: PIPERACILLIN-TAZOBACTAM 3.375 GM in SODIUM CHLORIDE 0.9% 100 ML IVPB SCH ×3 (11:17→23:03)
[2022-11-07 11:58] LABS: Glucose,Whole Blood 178 mg/dL (70-110)
--- NOTE | 2022-11-07 11:59 | P.CNNES ---
History of Present Illness Consult date: 11/06/22 Requesting physician: Del Bradley Reason for Consult: AMS History of Present Illness: Patient is a 71-year-old left-handed male came to the hospital by ambulance today at 7:11 AM. EMS flow sheet not available in the chart. Per nurse report, the last known well was yesterday evening. This morning he was found altered, sitting in the chair. EMS was called by his girlfriend, he was still able to walk to the stretcher. Patient not able to provide any history. Patient appears grossly aphasic at this time. Vital signs arrival blood pressure 212/96, pulse is 67 temperature 97.6. The blood pressure stayed up 216/113, although the most recent blood pressure is 137/80. Patient is afebrile. Blood test shows normal CBC PT/PTT, normal CMP. Troponin negative, UA negative urine drug screen negative. Blood alcohol level negative. Patient's last A1c 9.7 on 02/09/2022. Patient has diabetes as far as 11/06/2015, when her A1c was 10.7. UA shows protein 1+, glucose 4+, ketones 1+. Ammonia is borderline 32. Influenza screen and lares virus PCR negative. Patient takes metformin 500 mg 3 times a day, metoprolol, Luvox 50 mg daily, insulin, midodrine 7.5 mg 3 times a day, Lipitor 40 mg, levothyroxine, aspirin 325 mg and Ozempic. Review of Systems Patient's family members not available, and nursing staff does not know anything more details about review of systems. Patient says "yes" for everything. ROS unobtainable: due to mental status Past Medical History Past Medical History: Coronary Artery Disease (CAD), Heart Failure, CVA/TIA, Diabetes Mellitus, Hyperlipidemia, Hypertension, Myocardial Infarction ([place]), Syncope, Thyroid Disorder Additional Past Medical History / Comment(s): CT of the brain in September 2017 demonstrated old right lacunar infarct Last Myocardial Infarction Date:: 12/06/2018 History of Any Multi-Drug Resistant Organisms: None Reported Past Surgical History: Orthopedic Surgery Additional Past Surgical History / Comment(s): right hip, Past Anesthesia/Blood Transfusion Reactions: No Reported Reaction Past Psychological History: Bipolar, PTSD Smoking Status: Never smoker Past Alcohol Use History: None Reported Past Drug Use History: None Reported - Past Family History Father Family Medical History: No Reported History Mother Family Medical History: No Reported History Medications and Allergies Home Medications Medication Instructions Recorded Confirmed Type metFORMIN HCL 500 mg PO TID 02/06/19 11/06/22 History Atorvastatin [Lipitor] 40 mg PO DAILY 10/09/19 11/06/22 History INSULIN ASPART (NovoLOG) [NovoLOG 15 unit SQ AC-TID 10/09/19 11/06/22 History (formulary)] Metoprolol Tartrate [Lopressor] 12.5 mg PO BID 10/09/19 11/06/22 History Midodrine [ProAmatine] 7.5 mg PO TID 10/09/19 11/06/22 History fluvoxaMINE [Luvox] 50 mg PO DAILY 10/09/19 11/06/22 History Aspirin EC [Ecotrin] 325 mg PO DAILY 11/06/22 11/06/22 History Insulin Glargine,Hum.rec.anlog 32 units SQ HS 11/06/22 11/06/22 History [Toujeo Solostar] Levothyroxine Sodium [Synthroid] 100 mcg PO DAILY 11/06/22 11/06/22 History Semaglutide [Ozempic] 0.25 mg SQ Q7D 11/06/22 11/06/22 History Allergies Allergy/AdvReac Type Severity Reaction Status Date / Time No Known Allergies Allergy Verified 03/28/22 05:35 Physical Examination - Vital Signs Vital Signs: Vital Signs Temp Pulse Resp BP Pulse Ox 11/06/22 13:22 110 H 24 137/80 93 L 11/06/22 12:28 107 H 18 197/104 97 11/06/22 11:05 104 H 18 142/57 98 11/06/22 10:12 98.4 F 104 H 18 205/95 99 11/06/22 09:27 192/142 11/06/22 09:10 77 18 198/83 98 11/06/22 08:23 67 20 216/113 100 11/06/22 07:14 97.6 F 67 20 212/96 98 Intake and Output 11/05/22 11/06/22 11/06/22 22:59 06:59 14:59 Other: Weight 92.986 kg Patient is an elderly male, in no acute distress. Patient is slightly somnolent, but then wakes up and becomes alert awake. He has severe expressive aphasia. He says "okay" for everything. He said a few phrases like "what time is it", "what is it", "I don't know". Otherwise he just says "Ya ya". Patient has significant expressive aphasia, says Bible for thumb, Bible for button, said "Triably" for eyeglasses. Patient cannot repeat. Attention, concentration and fund of knowledge is cullen limited. On cranial nerve examination, pupils are equal, round and reacting to light, visual krishna could not be assessed. He probably does blink to visual threat bilaterally. Extraocular muscles are intact with no nystagmus. Face is symmetric. He would not protrude his tongue. Hearing is probably decreased, shoulder shrug normal. Palatal elevation and sensation could not be assessed because of his aphasia. On muscle strength testing, no obvious focality noted. His biceps and triceps are 5 bilaterally. Hip flexion is 3-4 bilaterally, ankle dorsiflexion 5- bilaterally. Deep tendon reflexes are diminished and plantars are flat bilaterally. Sensory to touch could not be assessed. Cerebellar could not be assessed because of his mentation. Tone and bulk of muscles normal. Gait deferred.. On general examination, there is no carotid bruit or murmur, S1-S2 audible. Chest is clear on consultation. Abdomen is soft nontender. No organomegaly, bowel sounds present. Peripheral pulses are present. No edema. Results - Laboratory Findings CBC and BMP: 11/07/22 03:53 11/07/22 03:53 Abnormal Lab Findings: Abnormal Labs 11/06/22 11/06/22 11/06/22 07:25 07:31 07:31 APTT 21.4 L Carbon Dioxide 21 L Glucose 260 H POC Glucose (mg/dL) 249 H Urine Protein Urine Glucose (UA) Urine Ketones 11/06/22 09:28 APTT Carbon Dioxide Glucose POC Glucose (mg/dL) Urine Protein 1+ H Urine Glucose (UA) 4+ H Urine Ketones 1+ H Assessment and Plan Assessment: * 71-year-old male presenting with acute onset of expressive aphasia. Probable acute CVA versus hypertensive/metabolic encephalopathy, less likely seizure. White cells has gone up, but no temperature. Intracranial infection less likely. * Hypertension, uncontrolled * Diabetes, uncontrolled * Hyperlipidemia * Coronary artery disease * Leukocytosis, unclear cause * Obesity * Hypothyroidism * Bipolar disorder, per past medical history Plan: * MRI of the brain with and without contrast, evaluate for acute stroke, rule out other structural abnormalities. * Continue aspirin 325 mg daily. * Carotid Doppler * Fasting lipid panel, hemoglobin A1c * B12, folate, TSH, RPR. Ammonia is 32. * Telemetric monitoring * EEG evaluate for encephalopathy. * Permissive hypertension. * DVT prophylaxis: Heparin 5000 units subcu every 8 hours * Tried to contact significant other for more details. * Thank you for the consult.
--- NOTE | 2022-11-07 13:43 | P.PN ---
Subjective Progress Note Date: 11/07/22 Patient's 71-year-old male came in the emergency department with complaints of altered mental status and patient is in usual state of health until yesterday evening and found to be completely confused today is presently alert oriented 0 patient cannot follow any commands at this time patient doesn't answer much but appeared to understand. Patient was having nausea vomiting in the ER. Patient doesn't have any fever chills urine drug screen is negative. Home medications were reviewed and patient is on Fluoximine that chago that can cause altered mental status. When asked to squeeze fingers patient did understand the command trying to do that but does have generalized weakness. Patient doesn't have any leukocytosis chest x-ray did not show any significant abnormality. CT of the head showed some chronic microvascular ischemic changes but nothing acute. Neurology was consulted. 11/07/2022 Patient is evaluated in EC holding for bed. Significant other at bedside. Mentation has improved today, less confused however he is still alert x 1. He has equal strength. Plan is for MRI and EEG today. Otherwise he continues on insulin gtt blood glucose in the 300s today although gap had closed. Ammonia down to <9 continues on lactulose. White count 14.7 today, hgb 11.9, sodium improved to 140, creatinine 1.38. Continue on normal saline. Patient did have a fever overnight and was started on empiric antibiotics. Carotid doppler showing 50-70% stenosis bilaterally. PT OT and speech therapy are pending. Review of Systems Constitutional: Denied any fatigue denied any fever. Cardio vascular: denied any chest pain, palpitations Gastrointestinal: denied any nausea, vomiting, diarrhea Pulmonary: Denied any shortness of breath cough Neurologic denied any new focal deficits All inpatient medications were reviewed and appropriate changes in these medications as dictated in the interval history and assessment and plan. PHYSICAL EXAMINATION: GENERAL: The patient is alert and oriented x1, not in any acute distress. Well developed, well nourished. HEENT: Pupils are round and equally reacting to light. EOMI. No scleral icterus. No conjunctival pallor. Normocephalic, atraumatic. No pharyngeal erythema. No thyromegaly. CARDIOVASCULAR: S1 and S2 present. No murmurs, rubs, or gallops. PULMONARY: Chest is clear to auscultation, no wheezing or crackles. ABDOMEN: Soft, nontender, nondistended, normoactive bowel sounds. No palpable organomegaly. MUSCULOSKELETAL: No joint swelling or deformity. EXTREMITIES: No cyanosis, clubbing, or pedal edema. NEUROLOGICAL: Less confused, he is following commands and able to converse although unable to tell time and place. SKIN: No rashes. Assessment and plan Assessment -Altered mental status etiology is not clear at this time, rule out stroke. Clinically patient appears encephalopathic although etiology is not clear at this time. Under investigation. -Nausea/vomiting improved -Coronary artery disease -Type 2 diabetes mellitus with hyperglycemia A1C found to be 8.8 -Hyperlipidemia -Hypertension -Hypothyroidism -history of CVA in 2018 DVT prophylaxis: Lovenox GI prophylaxis: Protonix Full Code Plan Monitor liver function, ammonia improved MRI and EEG are ordered Continue neuro checks Empiric antibiotics and infectious disease consultation Transition off insulin gtt Clear liquid diet PT/OT and speech therapy consulted The impression and plan of care has been dictated by Fe Fair, Nurse Practitioner as directed. Dr. Joe MD I have performed a history and physical examination and medical decision making of this patient, discussed the same with the dictator, and agree with the dictators assessment and plan as written, documented as a scribe. Based on total visit time, I have performed more than 50% of this visit. Objective - Vital Signs Vital signs: Vital Signs Temp 97.9 F 11/07/22 07:56 Pulse 82 11/07/22 13:07 Resp 18 11/07/22 13:07 BP 149/58 11/07/22 13:07 Pulse Ox 96 11/07/22 13:07 FiO2 Intake & Output 11/06/22 11/07/22 11/07/22 18:59 06:59 18:59 Intake Total 45.614 47.805 Balance 45.614 47.805 Weight 104.326 kg Intake: Intake, IV Titration 45.614 47.805 Amount Insulin Regular 100 unit 45.614 47.805 In Sodium Chloride 0.9% 100 ml @ 0.1 UNITS/KG/HR 10.537 mls/hr IV .[id number] [facility] Rx#:[id number] Other: Voiding Method Diaper Incontinent # Voids 2 - Labs CBC & Chem 7: 11/07/22 03:53 11/07/22 03:53 Labs: Abnormal Lab Results - Last 24 Hours (Table) 11/06/22 11/06/22 11/06/22 Range/Units 07:31 15:47 17:40 WBC (3.8-10.6) k/uL RBC (4.30-5.90) m/uL Hgb (13.0-17.5) gm/dL Hct (39.0-53.0) % Neutrophils # (1.3-7.7) k/uL Lymphocytes # (1.0-4.8) k/uL Monocytes # (0-1.0) k/uL Sodium (137-145) mmol/L Chloride (98-107) mmol/L Carbon Dioxide (22-30) mmol/L BUN (9-20) mg/dL Creatinine (0.66-1.25) mg/dL Glucose (74-99) mg/dL POC Glucose (mg/dL) 392 H (70-110) mg/dL Hemoglobin A1c 8.6 H (0.0-6.0) % Ammonia 32 H (<30) umol/L HDL Cholesterol (40.00-60.00) mg/dL TSH (0.465-4.680) mIU/L 11/06/22 11/06/22 11/06/22 Range/Units 20:00 20:20 20:20 WBC 14.1 H (3.8-10.6) k/uL RBC (4.30-5.90) m/uL Hgb 12.7 L (13.0-17.5) gm/dL Hct 38.2 L (39.0-53.0) % Neutrophils # 12.7 H (1.3-7.7) k/uL Lymphocytes # 0.7 L (1.0-4.8) k/uL Monocytes # (0-1.0) k/uL Sodium 135 L (137-145) mmol/L Chloride (98-107) mmol/L Carbon Dioxide 16 L (22-30) mmol/L BUN 24 H (9-20) mg/dL Creatinine 1.27 H (0.66-1.25) mg/dL Glucose 371 H (74-99) mg/dL POC Glucose (mg/dL) 465 H (70-110) mg/dL Hemoglobin A1c (0.0-6.0) % Ammonia (<30) umol/L HDL Cholesterol (40.00-60.00) mg/dL TSH (0.465-4.680) mIU/L 11/06/22 11/06/22 11/07/22 Range/Units 21:46 22:53 00:00 WBC (3.8-10.6) k/uL RBC (4.30-5.90) m/uL Hgb (13.0-17.5) gm/dL Hct (39.0-53.0) % Neutrophils # (1.3-7.7) k/uL Lymphocytes # (1.0-4.8) k/uL Monocytes # (0-1.0) k/uL Sodium (137-145) mmol/L Chloride (98-107) mmol/L Carbon Dioxide (22-30) mmol/L BUN (9-20) mg/dL Creatinine (0.66-1.25) mg/dL Glucose (74-99) mg/dL POC Glucose (mg/dL) 301 H 191 H 140 H (70-110) mg/dL Hemoglobin A1c (0.0-6.0) % Ammonia (<30) umol/L HDL Cholesterol (40.00-60.00) mg/dL TSH (0.465-4.680) mIU/L 11/07/22 11/07/22 11/07/22 Range/Units 00:32 00:32 00:49 WBC (3.8-10.6) k/uL RBC (4.30-5.90) m/uL Hgb (13.0-17.5) gm/dL Hct (39.0-53.0) % Neutrophils # (1.3-7.7) k/uL Lymphocytes # (1.0-4.8) k/uL Monocytes # (0-1.0) k/uL Sodium (137-145) mmol/L Chloride (98-107) mmol/L Carbon Dioxide (22-30) mmol/L BUN 27 H (9-20) mg/dL Creatinine 1.44 H (0.66-1.25) mg/dL Glucose (74-99) mg/dL POC Glucose (mg/dL) 174 H (70-110) mg/dL Hemoglobin A1c 8.8 H (0.0-6.0) % Ammonia (<30) umol/L HDL Cholesterol (40.00-60.00) mg/dL TSH 8.230 H (0.465-4.680) mIU/L 11/07/22 11/07/22 11/07/22 Range/Units 02:13 03:53 03:53 WBC 14.7 H (3.8-10.6) k/uL RBC 4.11 L (4.30-5.90) m/uL Hgb 11.9 L (13.0-17.5) gm/dL Hct 36.3 L (39.0-53.0) % Neutrophils # 11.3 H (1.3-7.7) k/uL Lymphocytes # (1.0-4.8) k/uL Monocytes # 1.4 H (0-1.0) k/uL Sodium (137-145) mmol/L Chloride 108 H (98-107) mmol/L Carbon Dioxide (22-30) mmol/L BUN 27 H (9-20) mg/dL Creatinine 1.38 H (0.66-1.25) mg/dL Glucose (74-99) mg/dL POC Glucose (mg/dL) 178 H (70-110) mg/dL Hemoglobin A1c (0.0-6.0) % Ammonia (<30) umol/L HDL Cholesterol 34.40 L (40.00-60.00) mg/dL TSH (0.465-4.680) mIU/L 11/07/22 11/07/22 11/07/22 Range/Units 04:47 06:17 06:51 WBC (3.8-10.6) k/uL RBC (4.30-5.90) m/uL Hgb (13.0-17.5) gm/dL Hct (39.0-53.0) % Neutrophils # (1.3-7.7) k/uL Lymphocytes # (1.0-4.8) k/uL Monocytes # (0-1.0) k/uL Sodium (137-145) mmol/L Chloride (98-107) mmol/L Carbon Dioxide (22-30) mmol/L BUN (9-20) mg/dL Creatinine (0.66-1.25) mg/dL Glucose (74-99) mg/dL POC Glucose (mg/dL) 202 H 249 H 301 H (70-110) mg/dL Hemoglobin A1c (0.0-6.0) % Ammonia (<30) umol/L HDL Cholesterol (40.00-60.00) mg/dL TSH (0.465-4.680) mIU/L 11/07/22 11/07/22 11/07/22 Range/Units 07:56 09:17 10:33 WBC (3.8-10.6) k/uL RBC (4.30-5.90) m/uL Hgb (13.0-17.5) gm/dL Hct (39.0-53.0) % Neutrophils # (1.3-7.7) k/uL Lymphocytes # (1.0-4.8) k/uL Monocytes # (0-1.0) k/uL Sodium (137-145) mmol/L Chloride (98-107) mmol/L Carbon Dioxide (22-30) mmol/L BUN (9-20) mg/dL Creatinine (0.66-1.25) mg/dL Glucose (74-99) mg/dL POC Glucose (mg/dL) 323 H 328 H 282 H (70-110) mg/dL Hemoglobin A1c (0.0-6.0) % Ammonia (<30) umol/L HDL Cholesterol (40.00-60.00) mg/dL TSH (0.465-4.680) mIU/L 11/07/22 Range/Units 11:50 WBC (3.8-10.6) k/uL RBC (4.30-5.90) m/uL Hgb (13.0-17.5) gm/dL Hct (39.0-53.0) % Neutrophils # (1.3-7.7) k/uL Lymphocytes # (1.0-4.8) k/uL Monocytes # (0-1.0) k/uL Sodium (137-145) mmol/L Chloride (98-107) mmol/L Carbon Dioxide (22-30) mmol/L BUN (9-20) mg/dL Creatinine (0.66-1.25) mg/dL Glucose (74-99) mg/dL POC Glucose (mg/dL) 178 H (70-110) mg/dL Hemoglobin A1c (0.0-6.0) % Ammonia (<30) umol/L HDL Cholesterol (40.00-60.00) mg/dL TSH (0.465-4.680) mIU/L Assessment and Plan Time with Patient: Less than 30
[2022-11-07] MEDS ORDERED: INSULIN NPH 100 UNIT/ML 10 ML VIAL SQ ONE (13:45)
[2022-11-07 13:56] LABS: Glucose,Whole Blood 53 mg/dL (70-110)
[2022-11-07 14:23] LABS: Glucose,Whole Blood 43 mg/dL (70-110)
[2022-11-07 14:51] LABS: Glucose,Whole Blood 155 mg/dL (70-110)
[2022-11-07 15:14] LABS: Glucose,Whole Blood 113 mg/dL (70-110)
[2022-11-07 15:50] LABS: Glucose,Whole Blood 111 mg/dL (70-110)
[2022-11-07 16:21] LABS: Glucose,Whole Blood 91 mg/dL (70-110)
[2022-11-07] MEDS: INSULIN ASPART (NovoLOG) 100 UNIT/ML VIAL SQ SCH ×3 (16:33→20:15)
[2022-11-07 18:26] LABS: Glucose,Whole Blood 116 mg/dL (70-110)
[2022-11-07 20:03] LABS: Glucose,Whole Blood 130 mg/dL (70-110)
[2022-11-07] MEDS: HEPARIN SODIUM,PORCINE/PF 5,000 UNIT/0.5 ML SYRINGE SQ SCH ×2 (20:16→23:03)
--- NOTE | 2022-11-07 23:25 | P.CONS ---
History of Present Illness - Reason for Consult Consult date: 11/07/22 Fever Requesting physician: Fe Fair - Chief Complaint Decreased level of responsiveness X 1 day - History of Present Illness Patient is a 71-year male with a past medical history pertinent for coronary disease CVA TIA diabetes mellitus hypertension, patient was brought into the ER yesterday morning for evaluation of mental status changes apparently patient symptoms started the day of presentation to the hospital patient did not recall what happened however the present at the bedside mention he was not acting right and did have multiple episodes of vomiting though no clear headache denies any chest pain or shortness of breath or cough no abdominal pain or any diarrhea patient on presentation to the hospital was afebrile and no fever has been recorded subsequently patient did have a normal white count admission subsequent white count has been up to 14.7 today did have elevated BUN/creatinine liver exams are normal 4 capsules by elevated 0.58 urine has been negative drug screen was negative influenza and COVID PCR was negative patient did have a chest x-ray lower lung volumes bibasilar atelectasis no acute cardiopulmonary disease infectious disease was consulted because of fever but no fever have been recorded however he did have elevated white count patient is currently on a combination of vancomycin and Zosyn and blood culture has been pending Review of Systems Positive point has been mentioned in the HPI rest of the systems are negative Past Medical History Past Medical History: Coronary Artery Disease (CAD), Heart Failure, CVA/TIA, Diabetes Mellitus, Hyperlipidemia, Hypertension, Myocardial Infarction (MD), Syncope, Thyroid Disorder Additional Past Medical History / Comment(s): CT of the brain in September 2017 demonstrated old right lacunar infarct Last Myocardial Infarction Date:: 12/06/2018 History of Any Multi-Drug Resistant Organisms: None Reported Past Surgical History: Orthopedic Surgery Additional Past Surgical History / Comment(s): right hip, Past Anesthesia/Blood Transfusion Reactions: No Reported Reaction Past Psychological History: Bipolar, PTSD Smoking Status: Never smoker Past Alcohol Use History: None Reported Past Drug Use History: None Reported - Past Family History Father Family Medical History: No Reported History Mother Family Medical History: No Reported History Medications and Allergies Home Medications Medication Instructions Recorded Confirmed Type metFORMIN HCL 500 mg PO TID 02/06/19 11/06/22 History Atorvastatin [Lipitor] 40 mg PO DAILY 10/09/19 11/06/22 History INSULIN ASPART (NovoLOG) [NovoLOG 15 unit SQ AC-TID 10/09/19 11/06/22 History (formulary)] fluvoxaMINE [Luvox] 50 mg PO DAILY 10/09/19 11/06/22 History Aspirin EC [Ecotrin] 325 mg PO DAILY 11/06/22 11/06/22 History Levothyroxine Sodium [Synthroid] 100 mcg PO DAILY 11/06/22 11/06/22 History Semaglutide [Ozempic] 0.25 mg SQ Q7D 11/06/22 11/06/22 History Amoxic-Pot Clav 875-125Mg 1 tab PO BID 3 Days #6 tab 11/09/22 Rx [Augmentin 875-125] Clopidogrel [Plavix] 75 mg PO DAILY #30 tab 11/09/22 Rx Cyanocobalamin [Vitamin B-12] 1,000 mcg PO DAILY #30 tablet 11/09/22 Rx Folic Acid 1 mg PO DAILY #30 tab 11/09/22 Rx Insulin Glargine,Hum.rec.anlog 37 units SQ HS #0 11/09/22 11/06/22 Rx [Toujeo Solostar] Metoprolol Tartrate [Lopressor] 25 mg PO BID tab 11/09/22 Rx Pantoprazole Sodium [Protonix] 20 mg PO AC-BRKFST #30 tab 11/09/22 Rx amLODIPine [Norvasc] 10 mg PO DAILY #30 tab 11/09/22 Rx Allergies Allergy/AdvReac Type Severity Reaction Status Date / Time No Known Allergies Allergy Verified 03/28/22 05:35 Physical Exam Vitals: Vital Signs Temp Pulse Pulse Resp BP BP BP 11/07/22 11:15 75 18 153/63 11/07/22 10:50 81 18 11/07/22 09:50 81 18 11/07/22 09:29 82 18 166/73 11/07/22 07:56 97.9 F 80 18 11/07/22 03:35 98.1 F 89 18 150/78 11/07/22 02:00 97 18 11/07/22 00:00 98.4 F 97 18 139/65 11/06/22 20:00 99.6 F 86 18 125/76 11/06/22 18:00 97.2 F L 76 16 129/75 11/06/22 14:22 106 H 18 11/06/22 13:22 110 H 24 137/80 11/06/22 12:28 107 H 18 197/104 Pulse Ox 11/07/22 11:15 94 L 11/07/22 10:50 96 11/07/22 09:50 96 11/07/22 09:29 95 11/07/22 07:56 94 L 11/07/22 03:35 100 11/07/22 02:00 11/07/22 00:00 100 11/06/22 20:00 100 11/06/22 18:00 92 L 11/06/22 14:22 97 11/06/22 13:22 93 L 11/06/22 12:28 97 Intake and Output 11/06/22 11/07/22 11/07/22 22:59 06:59 14:59 Intake Total 11.239 34.375 47.805 Balance 11.239 34.375 47.805 Intake: Intake, IV Titration 11.239 34.375 47.805 Amount Insulin Regular 100 unit 11.239 34.375 47.805 In Sodium Chloride 0.9% 100 ml @ 0.1 UNITS/KG/HR 10.537 mls/hr IV .Q9H36M [facility] Rx#:[id number] Other: Voiding Method Diaper Diaper Incontinent Incontinent # Voids 2 Weight 104.326 kg GENERAL DESCRIPTION: Elderly male lying in bed, no distress. No tachypnea or accessory muscle of respiration use. HEENT: Shows Pallor , no scleral icterus. Oral mucous membrane is dry. No pharyngeal erythema or thrush NECK: Trachea central, no thyromegaly. LUNGS: Unlabored breathing. Decreased breath sound at the base. No wheeze or crackle. HEART: S1, S2, regular rate and rhythm. No loud murmur ABDOMEN: Soft, mild tenderness ,no guarding or rigidity, no organomegaly EXTREMITIES: No edema of feet. SKIN: No rash, no masses palpable. NEUROLOGICAL: The patient is awake, alert, oriented x3, mood and affect normal. Results CBC & Chem 7: 11/07/22 03:53 11/09/22 07:46 Labs: Abnormal Lab Results - Last 24 Hours (Table) 11/06/22 11/06/22 11/06/22 Range/Units 07:31 15:47 17:40 WBC (3.8-10.6) k/uL RBC (4.30-5.90) m/uL Hgb (13.0-17.5) gm/dL Hct (39.0-53.0) % Neutrophils # (1.3-7.7) k/uL Lymphocytes # (1.0-4.8) k/uL Monocytes # (0-1.0) k/uL Sodium (137-145) mmol/L Chloride (98-107) mmol/L Carbon Dioxide (22-30) mmol/L BUN (9-20) mg/dL Creatinine (0.66-1.25) mg/dL Glucose (74-99) mg/dL POC Glucose (mg/dL) 392 H (70-110) mg/dL Hemoglobin A1c 8.6 H (0.0-6.0) % Ammonia 32 H (<30) umol/L HDL Cholesterol (40.00-60.00) mg/dL TSH (0.465-4.680) mIU/L 11/06/22 11/06/22 11/06/22 Range/Units 20:00 20:20 20:20 WBC 14.1 H (3.8-10.6) k/uL RBC (4.30-5.90) m/uL Hgb 12.7 L (13.0-17.5) gm/dL Hct 38.2 L (39.0-53.0) % Neutrophils # 12.7 H (1.3-7.7) k/uL Lymphocytes # 0.7 L (1.0-4.8) k/uL Monocytes # (0-1.0) k/uL Sodium 135 L (137-145) mmol/L Chloride (98-107) mmol/L Carbon Dioxide 16 L (22-30) mmol/L BUN 24 H (9-20) mg/dL Creatinine 1.27 H (0.66-1.25) mg/dL Glucose 371 H (74-99) mg/dL POC Glucose (mg/dL) 465 H (70-110) mg/dL Hemoglobin A1c (0.0-6.0) % Ammonia (<30) umol/L HDL Cholesterol (40.00-60.00) mg/dL TSH (0.465-4.680) mIU/L 11/06/22 11/06/22 11/07/22 Range/Units 21:46 22:53 00:00 WBC (3.8-10.6) k/uL RBC (4.30-5.90) m/uL Hgb (13.0-17.5) gm/dL Hct (39.0-53.0) % Neutrophils # (1.3-7.7) k/uL Lymphocytes # (1.0-4.8) k/uL Monocytes # (0-1.0) k/uL Sodium (137-145) mmol/L Chloride (98-107) mmol/L Carbon Dioxide (22-30) mmol/L BUN (9-20) mg/dL Creatinine (0.66-1.25) mg/dL Glucose (74-99) mg/dL POC Glucose (mg/dL) 301 H 191 H 140 H (70-110) mg/dL Hemoglobin A1c (0.0-6.0) % Ammonia (<30) umol/L HDL Cholesterol (40.00-60.00) mg/dL TSH (0.465-4.680) mIU/L 11/07/22 11/07/22 11/07/22 Range/Units 00:32 00:32 00:49 WBC (3.8-10.6) k/uL RBC (4.30-5.90) m/uL Hgb (13.0-17.5) gm/dL Hct (39.0-53.0) % Neutrophils # (1.3-7.7) k/uL Lymphocytes # (1.0-4.8) k/uL Monocytes # (0-1.0) k/uL Sodium (137-145) mmol/L Chloride (98-107) mmol/L Carbon Dioxide (22-30) mmol/L BUN 27 H (9-20) mg/dL Creatinine 1.44 H (0.66-1.25) mg/dL Glucose (74-99) mg/dL POC Glucose (mg/dL) 174 H (70-110) mg/dL Hemoglobin A1c 8.8 H (0.0-6.0) % Ammonia (<30) umol/L HDL Cholesterol (40.00-60.00) mg/dL TSH 8.230 H (0.465-4.680) mIU/L 11/07/22 11/07/22 11/07/22 Range/Units 02:13 03:53 03:53 WBC 14.7 H (3.8-10.6) k/uL RBC 4.11 L (4.30-5.90) m/uL Hgb 11.9 L (13.0-17.5) gm/dL Hct 36.3 L (39.0-53.0) % Neutrophils # 11.3 H (1.3-7.7) k/uL Lymphocytes # (1.0-4.8) k/uL Monocytes # 1.4 H (0-1.0) k/uL Sodium (137-145) mmol/L Chloride 108 H (98-107) mmol/L Carbon Dioxide (22-30) mmol/L BUN 27 H (9-20) mg/dL Creatinine 1.38 H (0.66-1.25) mg/dL Glucose (74-99) mg/dL POC Glucose (mg/dL) 178 H (70-110) mg/dL Hemoglobin A1c (0.0-6.0) % Ammonia (<30) umol/L HDL Cholesterol 34.40 L (40.00-60.00) mg/dL TSH (0.465-4.680) mIU/L 11/07/22 11/07/22 11/07/22 Range/Units 04:47 06:17 06:51 WBC (3.8-10.6) k/uL RBC (4.30-5.90) m/uL Hgb (13.0-17.5) gm/dL Hct (39.0-53.0) % Neutrophils # (1.3-7.7) k/uL Lymphocytes # (1.0-4.8) k/uL Monocytes # (0-1.0) k/uL Sodium (137-145) mmol/L Chloride (98-107) mmol/L Carbon Dioxide (22-30) mmol/L BUN (9-20) mg/dL Creatinine (0.66-1.25) mg/dL Glucose (74-99) mg/dL POC Glucose (mg/dL) 202 H 249 H 301 H (70-110) mg/dL Hemoglobin A1c (0.0-6.0) % Ammonia (<30) umol/L HDL Cholesterol (40.00-60.00) mg/dL TSH (0.465-4.680) mIU/L 11/07/22 11/07/22 11/07/22 Range/Units 07:56 09:17 10:33 WBC (3.8-10.6) k/uL RBC (4.30-5.90) m/uL Hgb (13.0-17.5) gm/dL Hct (39.0-53.0) % Neutrophils # (1.3-7.7) k/uL Lymphocytes # (1.0-4.8) k/uL Monocytes # (0-1.0) k/uL Sodium (137-145) mmol/L Chloride (98-107) mmol/L Carbon Dioxide (22-30) mmol/L BUN (9-20) mg/dL Creatinine (0.66-1.25) mg/dL Glucose (74-99) mg/dL POC Glucose (mg/dL) 323 H 328 H 282 H (70-110) mg/dL Hemoglobin A1c (0.0-6.0) % Ammonia (<30) umol/L HDL Cholesterol (40.00-60.00) mg/dL TSH (0.465-4.680) mIU/L Assessment and Plan (1) Leukocytosis Current Visit: Yes Status: Acute Code(s): D72.829 - ELEVATED WHITE BLOOD CELL COUNT, UNSPECIFIED SNOMED Code(s): 117225678 Plan: 1patient presented to hospital with mental status changes however at this point the patient is fully awake and alert and know that he is at [facility] denies any headache clinic suspicious low for meningitis or encephalitis possible metabolic versus abdominal source in this patient with a negative UA. 2 Patient with renal insufficiency high risk of nephrotoxicity. 3we will obtain a CT of abdominal pelvis with oral contrast. 4we will repeat his urine culture. 5continue with Zosyn however discontinue vancomycin decrease risk of nephrotoxicity we will follow on clinical condition and cultures to further adjust medication if needed Thank you for this consultation will follow this patient along with you Time with Patient: Greater than 30
[2022-11-08] MEDS ORDERED: VANCOMYCIN 1,750 MG in SODIUM CHLORIDE 0.9% 500 ML 500 ML IVPB SCH ×2
[2022-11-08 02:01] LABS: Glucose,Whole Blood 105 mg/dL (70-110)
[2022-11-08] MEDS: INSULIN DETEMIR (LEVEMIR) 100 UNIT/ML SYR SQ SCH ×2 (02:20→20:22)
[2022-11-08] MEDS: INSULIN ASPART (NovoLOG) 100 UNIT/ML VIAL SQ SCH ×8 (02:21→20:24)
[2022-11-08] MEDS: METOPROLOL TARTRATE 12.5 MG TAB PO SCH ×2 (06:06→17:15)
[2022-11-08] MEDS: LEVOTHYROXINE 100 MCG TAB PO SCH (06:06)
[2022-11-08 06:07] LABS: Glucose,Whole Blood 151 mg/dL (70-110)
[2022-11-08] MEDS: IOPAMIDOL CONTRAST (ORAL USE) VIAL PO PRN ×2 (06:38→08:39)
[2022-11-08 08:14] LABS: Potassium 4.5 mmol/L (3.5-5.1)
--- NOTE | 2022-11-08 10:55 | P.PN ---
Subjective Progress Note Date: 11/07/22 Patient was seen for a follow-up. Patient is doing much better. Patient is now fully alert and awake. Patient's speech and language functions appears normal. Patient denies any history of seizures. He denies any headache, diplopia and this time. No dizziness. Patient states that his girlfriend called the ambulance prior to the arrival. He does not remember at all what happened. However he does remember me from encounter yesterday in the ER. Denies any focal symptoms at this time. Objective - Vital Signs Vital signs: Vital Signs Temp 97.7 F 11/07/22 15:46 Pulse 72 11/07/22 15:46 Resp 18 11/07/22 15:46 BP 145/73 11/07/22 15:46 Pulse Ox 97 11/07/22 14:03 FiO2 Intake & Output 11/06/22 11/07/22 11/07/22 18:59 06:59 18:59 Intake Total 45.614 287.805 Balance 45.614 287.805 Weight 104.326 kg Intake: Intake, IV Titration 45.614 47.805 Amount Insulin Regular 100 unit 45.614 47.805 In Sodium Chloride 0.9% 100 ml @ 0.1 UNITS/KG/HR 10.537 mls/hr IV .Q9H36M [facility] Rx#:[id number] Oral 240 Other: Voiding Method Diaper Diaper Incontinent Incontinent # Voids 2 - Exam Patient is alert and awake. He knows he is in [facility] in [facility]. He knows his age 71 and that it is October but could not tell the year. He is able to tell name of the president Mr. Pedro Romo. Patient able to name objects like pen, glasses, fingers, thumb, ear, but not able to tell details like "ear lobe, knuckles". Patient can name and repeat very well. Patient's cranial nerves are normal. Visual krishna are full. Face is symmetric. Muscle strength is normal. No pronator drift. Sensory touch is equal with no neglect. Cerebellar functions revealed tremulousness with the questionable ataxia upper extremities left more than right. - Labs CBC & Chem 7: 11/07/22 03:53 11/08/22 06:46 Labs: Abnormal Lab Results - Last 24 Hours (Table) 11/06/22 11/06/22 11/06/22 Range/Units 07:31 20:00 20:20 WBC 14.1 H (3.8-10.6) k/uL RBC (4.30-5.90) m/uL Hgb 12.7 L (13.0-17.5) gm/dL Hct 38.2 L (39.0-53.0) % Neutrophils # 12.7 H (1.3-7.7) k/uL Lymphocytes # 0.7 L (1.0-4.8) k/uL Monocytes # (0-1.0) k/uL Sodium (137-145) mmol/L Chloride (98-107) mmol/L Carbon Dioxide (22-30) mmol/L BUN (9-20) mg/dL Creatinine (0.66-1.25) mg/dL Glucose (74-99) mg/dL POC Glucose (mg/dL) 465 H (70-110) mg/dL Hemoglobin A1c 8.6 H (0.0-6.0) % HDL Cholesterol (40.00-60.00) mg/dL TSH (0.465-4.680) mIU/L 11/06/22 11/06/22 11/06/22 Range/Units 20:20 21:46 22:53 WBC (3.8-10.6) k/uL RBC (4.30-5.90) m/uL Hgb (13.0-17.5) gm/dL Hct (39.0-53.0) % Neutrophils # (1.3-7.7) k/uL Lymphocytes # (1.0-4.8) k/uL Monocytes # (0-1.0) k/uL Sodium 135 L (137-145) mmol/L Chloride (98-107) mmol/L Carbon Dioxide 16 L (22-30) mmol/L BUN 24 H (9-20) mg/dL Creatinine 1.27 H (0.66-1.25) mg/dL Glucose 371 H (74-99) mg/dL POC Glucose (mg/dL) 301 H 191 H (70-110) mg/dL Hemoglobin A1c (0.0-6.0) % HDL Cholesterol (40.00-60.00) mg/dL TSH (0.465-4.680) mIU/L 11/07/22 11/07/22 11/07/22 Range/Units 00:00 00:32 00:32 WBC (3.8-10.6) k/uL RBC (4.30-5.90) m/uL Hgb (13.0-17.5) gm/dL Hct (39.0-53.0) % Neutrophils # (1.3-7.7) k/uL Lymphocytes # (1.0-4.8) k/uL Monocytes # (0-1.0) k/uL Sodium (137-145) mmol/L Chloride (98-107) mmol/L Carbon Dioxide (22-30) mmol/L BUN 27 H (9-20) mg/dL Creatinine 1.44 H (0.66-1.25) mg/dL Glucose (74-99) mg/dL POC Glucose (mg/dL) 140 H (70-110) mg/dL Hemoglobin A1c 8.8 H (0.0-6.0) % HDL Cholesterol (40.00-60.00) mg/dL TSH 8.230 H (0.465-4.680) mIU/L 11/07/22 11/07/22 11/07/22 Range/Units 00:49 02:13 03:53 WBC (3.8-10.6) k/uL RBC (4.30-5.90) m/uL Hgb (13.0-17.5) gm/dL Hct (39.0-53.0) % Neutrophils # (1.3-7.7) k/uL Lymphocytes # (1.0-4.8) k/uL Monocytes # (0-1.0) k/uL Sodium (137-145) mmol/L Chloride 108 H (98-107) mmol/L Carbon Dioxide (22-30) mmol/L BUN 27 H (9-20) mg/dL Creatinine 1.38 H (0.66-1.25) mg/dL Glucose (74-99) mg/dL POC Glucose (mg/dL) 174 H 178 H (70-110) mg/dL Hemoglobin A1c (0.0-6.0) % HDL Cholesterol 34.40 L (40.00-60.00) mg/dL TSH (0.465-4.680) mIU/L 11/07/22 11/07/22 11/07/22 Range/Units 03:53 04:47 06:17 WBC 14.7 H (3.8-10.6) k/uL RBC 4.11 L (4.30-5.90) m/uL Hgb 11.9 L (13.0-17.5) gm/dL Hct 36.3 L (39.0-53.0) % Neutrophils # 11.3 H (1.3-7.7) k/uL Lymphocytes # (1.0-4.8) k/uL Monocytes # 1.4 H (0-1.0) k/uL Sodium (137-145) mmol/L Chloride (98-107) mmol/L Carbon Dioxide (22-30) mmol/L BUN (9-20) mg/dL Creatinine (0.66-1.25) mg/dL Glucose (74-99) mg/dL POC Glucose (mg/dL) 202 H 249 H (70-110) mg/dL Hemoglobin A1c (0.0-6.0) % HDL Cholesterol (40.00-60.00) mg/dL TSH (0.465-4.680) mIU/L 11/07/22 11/07/22 11/07/22 Range/Units 06:51 07:56 09:17 WBC (3.8-10.6) k/uL RBC (4.30-5.90) m/uL Hgb (13.0-17.5) gm/dL Hct (39.0-53.0) % Neutrophils # (1.3-7.7) k/uL Lymphocytes # (1.0-4.8) k/uL Monocytes # (0-1.0) k/uL Sodium (137-145) mmol/L Chloride (98-107) mmol/L Carbon Dioxide (22-30) mmol/L BUN (9-20) mg/dL Creatinine (0.66-1.25) mg/dL Glucose (74-99) mg/dL POC Glucose (mg/dL) 301 H 323 H 328 H (70-110) mg/dL Hemoglobin A1c (0.0-6.0) % HDL Cholesterol (40.00-60.00) mg/dL TSH (0.465-4.680) mIU/L 11/07/22 11/07/22 11/07/22 Range/Units 10:33 11:50 13:46 WBC (3.8-10.6) k/uL RBC (4.30-5.90) m/uL Hgb (13.0-17.5) gm/dL Hct (39.0-53.0) % Neutrophils # (1.3-7.7) k/uL Lymphocytes # (1.0-4.8) k/uL Monocytes # (0-1.0) k/uL Sodium (137-145) mmol/L Chloride (98-107) mmol/L Carbon Dioxide (22-30) mmol/L BUN (9-20) mg/dL Creatinine (0.66-1.25) mg/dL Glucose (74-99) mg/dL POC Glucose (mg/dL) 282 H 178 H 53 L (70-110) mg/dL Hemoglobin A1c (0.0-6.0) % HDL Cholesterol (40.00-60.00) mg/dL TSH (0.465-4.680) mIU/L 11/07/22 11/07/22 11/07/22 Range/Units 14:22 14:41 15:12 WBC (3.8-10.6) k/uL RBC (4.30-5.90) m/uL Hgb (13.0-17.5) gm/dL Hct (39.0-53.0) % Neutrophils # (1.3-7.7) k/uL Lymphocytes # (1.0-4.8) k/uL Monocytes # (0-1.0) k/uL Sodium (137-145) mmol/L Chloride (98-107) mmol/L Carbon Dioxide (22-30) mmol/L BUN (9-20) mg/dL Creatinine (0.66-1.25) mg/dL Glucose (74-99) mg/dL POC Glucose (mg/dL) 43 L 155 H 113 H (70-110) mg/dL Hemoglobin A1c (0.0-6.0) % HDL Cholesterol (40.00-60.00) mg/dL TSH (0.465-4.680) mIU/L 11/07/22 11/07/22 Range/Units 15:39 18:24 WBC (3.8-10.6) k/uL RBC (4.30-5.90) m/uL Hgb (13.0-17.5) gm/dL Hct (39.0-53.0) % Neutrophils # (1.3-7.7) k/uL Lymphocytes # (1.0-4.8) k/uL Monocytes # (0-1.0) k/uL Sodium (137-145) mmol/L Chloride (98-107) mmol/L Carbon Dioxide (22-30) mmol/L BUN (9-20) mg/dL Creatinine (0.66-1.25) mg/dL Glucose (74-99) mg/dL POC Glucose (mg/dL) 111 H 116 H (70-110) mg/dL Hemoglobin A1c (0.0-6.0) % HDL Cholesterol (40.00-60.00) mg/dL TSH (0.465-4.680) mIU/L Assessment and Plan Assessment: * Transient expressive aphasia, now seems to have resolved. Rule out stroke/TIA versus hypertensive encephalopathy. * Hypertension, uncontrolled * Diabetes, uncontrolled * Hyperlipidemia * Coronary artery disease * Leukocytosis, unclear cause * Obesity * Hypothyroidism * Bipolar disorder, per past medical history Plan: * Await MRI of the brain with and without contrast, evaluate for acute stroke, rule out other structural abnormalities. * Continue aspirin 325 mg daily. * Carotid Doppler revealed bilateral stenosis 50-70%. Bilateral plaque for mation. Right vertebral had antegrade flow. Left vertebral is not visualized. * Fasting lipid panel cholesterol 145, LDL 81, HDL 34 and triglycerides 144. Continue Lipitor 40 mg daily. * Hemoglobin A1c 8.8 * B12 296, folate 9.6, TSH 8.23, free T4 1.42 normal. RPR nonreactive. Ammonia is 32. Patient will be started on B12 and folate replacement. * Telemetric monitoring * EEG pending. * Optimize control of blood pressure. Current blood pressure 149/58 * DVT prophylaxis: Heparin 5000 units subcu every 8 hours * Tried to contact significant other for more details.
[2022-11-08 11:05] VITALS: BMI 30.3
--- NOTE | 2022-11-08 11:08 | CT ---
EXAMINATION TYPE: CT abdomen pelvis wo con DATE OF EXAM: 11/08/2022 HISTORY: Leukocytosis CT DLP: n/a mGycm. Automated Exposure Control for Dose Reduction was Utilized. TECHNIQUE: CT scan of the abdomen and pelvis is performed without oral or IV contrast. COMPARISON: NONE FINDINGS: Within the limitations of a non-contrast study, the following observations are made. Exam suboptimal inspiration unable to hold still. LUNG BASES: There is tiny left pleural effusion. There is linear atelectasis posterior in the right l cisco base. Overlying sternal wires are partially imaged. LIVER/GB: No significant abnormality is appreciated. PANCREAS: No significant abnormality is seen. SPLEEN: No significant abnormality is seen. ADRENALS: No significant abnormality is seen. KIDNEYS: No renal stones or hydronephrosis seen bilaterally. BOWEL: Oral contrast reaches level of the proximal sigmoid colon. No suspicious small or large bowel dilatation. Mild to moderate wall thickening in the left colon including splenic flexure. No signific ant surrounding fat stranding. GENITAL ORGANS: Prostate gland measures upper limits of normal in size. LYMPH NODES: No greater than 1cm abdominal or pelvic lymph nodes are appreciated. OSSEOUS STRUCTURES: Osseous structures are demineralized. Underlying scoliosis is present. Surgical c hanges to the right acetabulum cause streak artifact somewhat limiting evaluation of pelvic structure s. Moderate axial joint space loss and acetabular spurring of both hips.. OTHER: No significant additional abnormality is seen. IMPRESSION: No well-formed fluid collection or abscess seen. Possible mild uncomplicated colitis left colon versus product of poor distention. Correlate clinically. Otherwise no acute findings are evide nt.
[2022-11-08] MEDS: LACTULOSE 20 GM/30 ML CUP PO SCH ×3 (11:10→21:35)
[2022-11-08] MEDS: HEPARIN SODIUM,PORCINE/PF 5,000 UNIT/0.5 ML SYRINGE SQ SCH ×2 (11:10→17:51)
[2022-11-08] MEDS: FOLIC ACID 1 MG TAB PO SCH (11:11)
[2022-11-08] MEDS: PIPERACILLIN-TAZOBACTAM 3.375 GM in SODIUM CHLORIDE 0.9% 100 ML IVPB SCH ×2 (11:11→17:51)
[2022-11-08] MEDS: PANTOPRAZOLE 40 MG/10 ML VIAL IV SCH (11:11)
[2022-11-08] MEDS: ASPIRIN 325 MG TAB PO SCH (11:11)
[2022-11-08] MEDS: ATORVASTATIN 40 MG TAB PO SCH (11:11)
[2022-11-08] MEDS: SODIUM CHLORIDE 0.9% 1,000 ML IV SCH (11:12)
--- NOTE | 2022-11-08 11:24 | MR ---
EXAMINATION TYPE: MR brain wo/w con DATE OF EXAM: 11/08/2022 COMPARISON: CT brain 2 days ago. HISTORY: Altered mental status, rule out CVA TECHNIQUE: Multiplanar, multisequence images of the brain and brainstem is performed without and with IV contras t, utilizing 10 mL intravenous Gadavist . FINDINGS: Diffusion weighted images demonstrate no evidence of a recent infarct or other diffusion ab normality. There is mild to moderate ventricular and sulcal prominence. There is moderate focal and confluent areas of T2 hyperintensity in the deep and periventricular white matter. Lesions nonspecifi c in appearance and distribution. T2 Star weighted images show no suspicious intraparenchymal blood p roduct. Old lacunar infarct lateral right thalamus axial image 16 redemonstrated. Midline structures demonstrate normal morphology. The craniocervical junction appears within normal limits. Post contrast images demonstrate no abnormal enhancement. The dural venous sinuses appear pa tent. The visualized sinuses are clear and the globes are intact. IMPRESSION: 1. No MRI evidence for recent infarct. 2. Background [id number] diffuse cerebral atrophy and moderate chronic small vessel ischemic ch ramy is redemonstrated. Old lacunar infarct right lateral thalamus redemonstrated. No abnormal enhanc ement is seen.
[2022-11-08 11:36] LABS: Glucose,Whole Blood 321 mg/dL (70-110)
[2022-11-08 12:13] LABS: Bilirubin,Urine Negative (Negative); Blood,Urine Small (Negative); Glucose,Urine (UA) 4+ (Negative); Protein,Urine Trace (Negative); Urobilinogen,Urine <2.0 mg/dL (<2.0)
--- NOTE | 2022-11-08 14:03 | P.PN ---
Subjective Progress Note Date: 11/08/22 Patient's 71-year-old male came in the emergency department with complaints of altered mental status and patient is in usual state of health until yesterday evening and found to be completely confused today is presently alert oriented 0 patient cannot follow any commands at this time patient doesn't answer much but appeared to understand. Patient was having nausea vomiting in the ER. Patient doesn't have any fever chills urine drug screen is negative. Home medications were reviewed and patient is on Fluoximine that chago that can cause altered mental status. When asked to squeeze fingers patient did understand the command trying to do that but does have generalized weakness. Patient doesn't have any leukocytosis chest x-ray did not show any significant abnormality. CT of the head showed some chronic microvascular ischemic changes but nothing acute. Neurology was consulted. 11/07/2022 Patient is evaluated in EC holding for bed. Significant other at bedside. Mentation has improved today, less confused however he is still alert x 1. He has equal strength. Plan is for MRI and EEG today. Otherwise he continues on insulin gtt blood glucose in the 300s today although gap had closed. Ammonia down to <9 continues on lactulose. White count 14.7 today, hgb 11.9, sodium improved to 140, creatinine 1.38. Continue on normal saline. Patient did have a fever overnight and was started on empiric antibiotics. Carotid doppler showing 50-70% stenosis bilaterally. PT OT and speech therapy are pending. 11/08/2022 Patient is evaluated today on medical floor. Currently alert x 3, mentation has improved. MRI completed showing old lacunar infarct right lateral thalamus. EEG negative for seizure activity. Pending echocardiogram to complete stroke work up. He had abdominal pelvis CT completed showing possible mild uncomplicated colitis left colon versus product of poor distention. Continues on IV zosyn, vancomycin discontinued. Infectious disease and neurology are following. Remains afebrile, heart rate 88, blood pressure 113/92, 95% room air. Blood glucose has improved off the insulin gtt. Creatinine down to 1.12. Pending PT evaluation for discharge pending. Review of Systems Constitutional: Denied any fatigue denied any fever. Cardio vascular: denied any chest pain, palpitations Gastrointestinal: denied any nausea, vomiting, diarrhea Pulmonary: Denied any shortness of breath cough Neurologic denied any new focal deficits All inpatient medications were reviewed and appropriate changes in these medications as dictated in the interval history and assessment and plan. PHYSICAL EXAMINATION: GENERAL: The patient is alert and oriented x1, not in any acute distress. Well developed, well nourished. HEENT: Pupils are round and equally reacting to light. EOMI. No scleral icterus. No conjunctival pallor. Normocephalic, atraumatic. No pharyngeal erythema. No thyromegaly. CARDIOVASCULAR: S1 and S2 present. No murmurs, rubs, or gallops. PULMONARY: Chest is clear to auscultation, no wheezing or crackles. ABDOMEN: Soft, nontender, nondistended, normoactive bowel sounds. No palpable organomegaly. MUSCULOSKELETAL: No joint swelling or deformity. EXTREMITIES: No cyanosis, clubbing, or pedal edema. NEUROLOGICAL: Less confused, he is following commands and able to converse although unable to tell time and place. SKIN: No rashes. Assessment and plan Assessment -Altered mental status etiology is not clear at this time, rule out stroke. Possible hyperammonemia which has resolved. Patient has improved and is now alert and oriented x 3. -Mild acute kidney injury mostly prerenal with creatinine 1.27 on admission, improved. -Nausea/vomiting improved -Coronary artery disease -Type 2 diabetes mellitus with hyperglycemia A1C found to be 8.8 -Hyperlipidemia -Hypertension -Hypothyroidism -History of CVA in 2018 DVT prophylaxis: Heparin Subcu GI prophylaxis: Protonix Full Code Plan Monitor liver function, ammonia improved Continue neuro checks Empiric antibiotics and infectious disease consultation Off insulin gtt and diet has been advanced PT/OT and speech therapy consulted Pending PT/OT evaluation for discharge planning Possible D/C in the next 24 hours. The impression and plan of care has been dictated by Nurse Rozina Pra ctitioner as directed. Dr. Joe MD I have performed a history and physical examination and medical decision making of this patient, discussed the same with the dictator, and agree with the dictat ors assessment and plan as written, documented as a scribe. Based on total visit time, I have performed more than 50% of this visit. Objective - Vital Signs Vital signs: Vital Signs Temp 98.3 F 11/08/22 11:10 Pulse 88 11/08/22 11:10 Resp 18 11/08/22 11:10 BP 113/92 11/08/22 11:10 Pulse Ox 95 11/08/22 11:10 FiO2 Intake & Output 11/07/22 11/08/22 11/08/22 18:59 06:59 18:59 Intake Total 349.529 5637 120 Output Total 300 Balance 287.805 840 120 Weight 104.326 kg Intake: Intake, IV Titration 47.805 900 Amount Insulin Regular 100 unit 47.805 In Sodium Chloride 0.9% 100 ml @ 0.1 UNITS/KG/HR 10.537 mls/hr IV .[id number] [facility] Rx#:[id number] Piperacillin-Tazobactam 3 100 .375 gm In Sodium Chloride 0.9% 100 ml @ 25 mls/hr IVPB Q8HR [facility] Rx# :[id number] Sodium Chloride 0.9% 1, 300 000 ml @ 75 mls/hr IV . [id number] [facility] Rx#:[id number] Vancomycin 1,750 mg In 500 Sodium Chloride 0.9% 500 ml 500 ml @ 167 mls/hr IVPB Q16H [facility] Rx#: [id number] Oral 240 240 120 Output: Urine 300 Other: Voiding Method Diaper Diaper Diaper Incontinent Incontinent Incontinent # Voids 2 - Labs CBC & Chem 7: 11/07/22 03:53 11/08/22 06:46 Labs: Abnormal Lab Results - Last 24 Hours (Table) 11/07/22 11/07/22 11/07/22 Range/Units 00:32 13:46 14:22 Chloride (98-107) mmol/L Carbon Dioxide (22-30) mmol/L Glucose (74-99) mg/dL POC Glucose (mg/dL) 53 L 43 L (70-110) mg/dL Calcium (8.4-10.2) mg/dL Procalcitonin 0.58 H (0.02-0.09) ng/mL Urine Protein (Negative) Urine Glucose (UA) (Negative) Urine Blood (Negative) 11/07/22 11/07/22 11/07/22 Range/Units 14:41 15:12 15:39 Chloride (98-107) mmol/L Carbon Dioxide (22-30) mmol/L Glucose (74-99) mg/dL POC Glucose (mg/dL) 155 H 113 H 111 H (70-110) mg/dL Calcium (8.4-10.2) mg/dL Procalcitonin (0.02-0.09) ng/mL Urine Protein (Negative) Urine Glucose (UA) (Negative) Urine Blood (Negative) 11/07/22 11/07/22 11/08/22 Range/Units 18:24 20:02 06:05 Chloride (98-107) mmol/L Carbon Dioxide (22-30) mmol/L Glucose (74-99) mg/dL POC Glucose (mg/dL) 116 H 130 H 151 H (70-110) mg/dL Calcium (8.4-10.2) mg/dL Procalcitonin (0.02-0.09) ng/mL Urine Protein (Negative) Urine Glucose (UA) (Negative) Urine Blood (Negative) 11/08/22 11/08/22 11/08/22 Range/Units 06:46 11:35 11:50 Chloride 112 H (98-107) mmol/L Carbon Dioxide 19 L (22-30) mmol/L Glucose 156 H (74-99) mg/dL POC Glucose (mg/dL) 321 H (70-110) mg/dL Calcium 8.0 L (8.4-10.2) mg/dL Procalcitonin (0.02-0.09) ng/mL Urine Protein Trace H (Negative) Urine Glucose (UA) 4+ H (Negative) Urine Blood Small H (Negative) Microbiology - Last 24 Hours (Table) 11/06/22 20:20 Blood Culture - Preliminary Blood No Growth after 24 hours 11/06/22 19:08 Blood Culture - Preliminary Blood No Growth after 24 hours Assessment and Plan Time with Patient: Less than 30
[2022-11-08] MEDS: CYANOCOBALAMIN 1,000 MCG/ML 1 ML VIAL IM SCH (14:38)
[2022-11-08] MEDS: CLOPIDOGREL 75 MG TAB PO SCH (15:57)
[2022-11-08 16:09] LABS: Appearance,Urine Clear (Clear); Bacteria,Urine Rare /hpf; Color,Urine Light Yellow; Ketones,Urine Trace (Negative); Leukocyte Esterase,Urine Trace (Negative); Mucus,Urine Rare /hpf; Nitrite,Urine Negative (Negative); RBC,Urine 2 /hpf (0-5); Specific Gravity,Urine 1.021 (1.001-1.035); WBC,Urine 7 /hpf (0-5)
[2022-11-08 17:03] LABS: Glucose,Whole Blood 307 mg/dL (70-110)
[2022-11-08 19:57] LABS: Glucose,Whole Blood 303 mg/dL (70-110)
--- NOTE | 2022-11-08 22:43 | EEG ---
ELECTROENCEPHALOGRAM REPORT PREAMBLE: This is a 71-year-old male with episode of altered mental status, and expressive aphasia. Rule out TIA versus focal seizure. EEG FINDINGS: This is a 21-channel digital EEG recorded with video component, utilizing 10/20 international system with referential and bipolar montages. Background consists of well developed, well regulated, [id number] amplitude activity in 6 to 7 hertz theta intermixed with some 8 hertz alpha activity seen in posterior head region. Background seems to be reactive to eye opening and closing. Photic driving response was not clearly seen. Some myogenic artifact was seen in the temporal region. Drowsiness was seen with appearance of bilaterally symmetric theta frequency rhythm. Deeper stages of sleep were not seen. No focal or generalized epileptiform activity was seen. IMPRESSION: This is a mildly abnormal EEG due to background slowing of mild degree. This is suggestive of generalized cerebral dysfunction, nonspecific etiology, suggest mild encephalopathy. No epileptiform activity was seen. MMODL / IJN: [id number] / [facility]
[2022-11-09 02:24] LABS: Glucose,Whole Blood 277 mg/dL (70-110)
[2022-11-09] MEDS: INSULIN ASPART (NovoLOG) 100 UNIT/ML VIAL SQ SCH ×8 (02:29→21:16)
[2022-11-09] MEDS: SODIUM CHLORIDE 0.9% 1,000 ML IV SCH ×2 (02:30→07:50)
[2022-11-09] MEDS: PIPERACILLIN-TAZOBACTAM 3.375 GM in SODIUM CHLORIDE 0.9% 100 ML IVPB SCH ×3 (02:30→18:08)
[2022-11-09] MEDS: HEPARIN SODIUM,PORCINE/PF 5,000 UNIT/0.5 ML SYRINGE SQ SCH ×3 (02:30→18:07)
[2022-11-09] MEDS: METOPROLOL TARTRATE 12.5 MG TAB PO SCH (05:25)
[2022-11-09] MEDS: LEVOTHYROXINE 100 MCG TAB PO SCH (05:25)
[2022-11-09 06:27] LABS: Glucose,Whole Blood 165 mg/dL (70-110)
[2022-11-09] MEDS ORDERED: VANCOMYCIN TROUGH DUE 1 EACH MISC MISCELLANE ONE (07:00)
[2022-11-09] MEDS: CYANOCOBALAMIN 1,000 MCG/ML 1 ML VIAL IM SCH (07:48)
[2022-11-09] MEDS: LACTULOSE 20 GM/30 ML CUP PO SCH ×3 (07:48→21:16)
[2022-11-09] MEDS: FOLIC ACID 1 MG TAB PO SCH (07:49)
[2022-11-09] MEDS: PANTOPRAZOLE 40 MG/10 ML VIAL IV SCH (07:49)
[2022-11-09] MEDS: CLOPIDOGREL 75 MG TAB PO SCH (07:49)
[2022-11-09] MEDS: ASPIRIN 325 MG TAB PO SCH (07:49)
[2022-11-09] MEDS: ATORVASTATIN 40 MG TAB PO SCH (07:49)
[2022-11-09 08:32] LABS: African American GFR (CKD) >90 (>60 ml/min/1.73 sqM); Anion Gap 7 mmol/L; Blood Urea Nitrogen 12 mg/dL (9-20); Calcium 7.9 mg/dL (8.4-10.2); Carbon Dioxide 22 mmol/L (22-30); Chloride 108 mmol/L (98-107); Glucose 139 mg/dL (74-99); Non-African American GFR(CKD) 79 (>60 ml/min/1.73 sqM); Potassium 4.2 mmol/L (3.5-5.1); Sodium 137 mmol/L (137-145)
--- NOTE | 2022-11-09 09:15 | CT ---
EXAMINATION TYPE: CT angio head neck CT DLP: 2061.3 mGycm, Automated exposure control for dose reduction was used. DATE OF EXAM: 11/09/2022 7:36 AM COMPARISON: Carotid duplex 11/06/2022. CLINICAL INDICATION:Male, 71 years old with history of TIA, bilateral carotid stenosis per Doppler ul tras, Abn US, TIA TECHNIQUE: Axially acquired helical CT angiogram of the head and neck was obtained with contrast. Axi al images are supplemented with 3D reconstructions [facility] criteria used. Contrast used:65 mL of Isovue 370 without and with IV Contrast, Oral contrast used: None. FINDINGS: CTA HEAD: No evidence of acute intracranial hemorrhage, mass effect, or midline shift. The ventricles, sulci, a nd cisterns are unremarkable. Atherosclerosis of the intracranial portions of the carotid arteries. Blooming artifact limits evalua tion. The visualized portions of the internal carotid arteries, middle cerebral arteries, anterior cerebral arteries, and posterior cerebral arteries are patent. The basilar and vertebral arteries are patent. CTA NECK: Right Carotid System: The common carotid artery and external carotid artery are patent. The carotid bifurcation demonstrate s calcified plaque with 50-75% stenosis. The remaining portions of the internal carotid artery demons trate normal size without significant narrowing. Left Carotid System: The common carotid artery and external carotid artery are patent. Calcified plaque with 25-50% stenos is of the mid common carotid artery. The carotid bifurcation demonstrates probably calcified plaque w ith 50-75% stenosis.. The remaining portions of the internal carotid artery demonstrate normal size w ithout significant narrowing. Calcified atherosclerosis at the origin of the left and right vertebral arteries. This results in up to 50% stenosis. There is a three-vessel aortic arch. The origins of the great vessels are patent. No evidence of hemodynamically significant stenosis. IMPRESSION: 1. No evidence of dissection of the cervical internal carotid arteries or vertebral arteries. 2. No evidence of intracranial high-grade stenosis or intracranial aneurysm. 3. Predominantly calcified plaque at the carotid bifurcations with 50-75% stenosis bilaterally. 4. At least 50% stenosis of the vertebral artery origins secondary to calcified plaque.
--- NOTE | 2022-11-09 09:52 | P.PN ---
Subjective Progress Note Date: 11/08/22 Patient was seen for a follow-up. Patient is doing much better. Patient is now fully alert and awake. Patient's speech and language functions appears normal. Patient denies any history of seizures. He denies any headache, diplopia and this time. No dizziness. Patient states that his girlfriend called the ambulance prior to the arrival. He does not remember at all what happened. However he does remember me from encounter yesterday in the ER. Denies any focal symptoms at this time. Patient's stomach is protuberant, but denies any stomach pain. Telemetry monitoring showed sinus rhythm with the heart rate in 80s. Objective - Vital Signs Vital signs: Vital Signs Temp 98.3 F 11/08/22 11:10 Pulse 88 11/08/22 11:10 Resp 18 11/08/22 11:10 BP 113/92 11/08/22 11:10 Pulse Ox 95 11/08/22 11:10 FiO2 Intake & Output 11/07/22 11/08/22 11/08/22 18:59 06:59 18:59 Intake Total 586.767 6874 120 Output Total 300 450 Balance 287.805 840 -330 Weight 104.326 kg Intake: Intake, IV Titration 47.805 900 Amount Insulin Regular 100 unit 47.805 In Sodium Chloride 0.9% 100 ml @ 0.1 UNITS/KG/HR 10.537 mls/hr IV .[id number] [facility] Rx#:[id number] Piperacillin-Tazobactam 3 100 .375 gm In Sodium Chloride 0.9% 100 ml @ 25 mls/hr IVPB Q8HR [facility] Rx# :[id number] Sodium Chloride 0.9% 1, 300 000 ml @ 75 mls/hr IV . [id number] [facility] Rx#:[id number] Vancomycin 1,750 mg In 500 Sodium Chloride 0.9% 500 ml 500 ml @ 167 mls/hr IVPB Q16H [facility] Rx#: [id number] Oral 240 240 120 Output: Urine 300 450 Other: Voiding Method Diaper Diaper Diaper Incontinent Incontinent Incontinent # Voids 2 - Exam Patient is alert and awake. He knows he is in [facility] in [facility]. He knows his age 71 and that it is October, and the year is 2021. He is able to tell name of the president Mr. Pedro Romo. Patient able to name objects like pen, glasses, fingers, thumb, ear, and also able to tell me detailed objects like "ear lobe, knuckles", which she was not able to name yesterday. Patient can repeat very well. Patient's cranial nerves are normal. Visual krishna are full. Face is symmetric. Muscle strength is normal. No pronator drift. Sensory touch is equal with no neglect. Cerebellar functions revealed tremulousness with the questionable ataxia upper extremities left more than right. Patient's stomach is very protuberant, but nontender. - Labs CBC & Chem 7: 11/07/22 03:53 11/09/22 07:46 Labs: Abnormal Lab Results - Last 24 Hours (Table) 11/07/22 11/07/22 11/07/22 Range/Units 00:32 15:12 15:39 Chloride (98-107) mmol/L Carbon Dioxide (22-30) mmol/L Glucose (74-99) mg/dL POC Glucose (mg/dL) 113 H 111 H (70-110) mg/dL Calcium (8.4-10.2) mg/dL Procalcitonin 0.58 H (0.02-0.09) ng/mL Urine Protein (Negative) Urine Glucose (UA) (Negative) Urine Blood (Negative) 11/07/22 11/07/22 11/08/22 Range/Units 18:24 20:02 06:05 Chloride (98-107) mmol/L Carbon Dioxide (22-30) mmol/L Glucose (74-99) mg/dL POC Glucose (mg/dL) 116 H 130 H 151 H (70-110) mg/dL Calcium (8.4-10.2) mg/dL Procalcitonin (0.02-0.09) ng/mL Urine Protein (Negative) Urine Glucose (UA) (Negative) Urine Blood (Negative) 11/08/22 11/08/22 11/08/22 Range/Units 06:46 11:35 11:50 Chloride 112 H (98-107) mmol/L Carbon Dioxide 19 L (22-30) mmol/L Glucose 156 H (74-99) mg/dL POC Glucose (mg/dL) 321 H (70-110) mg/dL Calcium 8.0 L (8.4-10.2) mg/dL Procalcitonin (0.02-0.09) ng/mL Urine Protein Trace H (Negative) Urine Glucose (UA) 4+ H (Negative) Urine Blood Small H (Negative) Microbiology - Last 24 Hours (Table) 11/06/22 20:20 Blood Culture - Preliminary Blood No Growth after 24 hours 11/06/22 19:08 Blood Culture - Preliminary Blood No Growth after 24 hours Assessment and Plan Assessment: * Transient expressive aphasia, now seems to have resolved. No evidence of CVA on MRI of the brain. Possible TIA versus hypertensive encephalopathy. * Hypertension, accelerated on presentation. * Diabetes, uncontrolled * Hyperlipidemia * Coronary artery disease * Leukocytosis, unclear cause * Obesity * Hypothyroidism * Bipolar disorder, per past medical history Plan: * MRI of the brain revealed no acute stroke. Mild to moderate diffuse cerebral atrophy and moderate chronic small vessel ischemic change. Old lacunar infarct right lateral thalamus. I personally reviewed MRI, agree with the findings. * Carotid Doppler revealed bilateral stenosis 50-70%. Bilateral plaque formation. Right vertebral had antegrade flow. Left vertebral is not visualized. We will check CTA of head and neck. * We will start Plavix 75 mg daily for possible TIA. Decrease aspirin to 81 mg daily. Possible switch from aspirin to Plavix. * Fasting lipid panel cholesterol 145, LDL 81, HDL 34 and triglycerides 144. Continue Lipitor 40 mg daily. * Hemoglobin A1c 8.8 * B12 296, folate 9.6, TSH 8.23, free T4 1.42 normal. RPR nonreactive. Ammonia is 32. Patient will be started on B12 and folate replacement. * Telemetric monitoring showing normal sinus rhythm. * EEG was mildly abnormal due to background slowing of mild degree. This is suggestive of generalized cerebral dysfunction, nonspecific etiology, may suggest mild encephalopathy. No indication for antiepileptic medication. * Optimize control of blood pressure. Current blood pressure 168/93 * Discussed with patient's significant other. She mentions that patient had some episode of seizure-type spell in 1992. He started talking nonsensical speech, and then had some altered mental status. He was hospitalized for 7 days. She states that they were told that patient had a seizure. She is not sure if patient was placed on seizure medication at that time. Validity of history is somewhat questionable. Patient has not had any further seizure- type spells since then.
[2022-11-09] MEDS: amLODIPine 10 MG TAB PO SCH (10:29)
[2022-11-09 11:43] LABS: Glucose,Whole Blood 226 mg/dL (70-110)
--- NOTE | 2022-11-09 12:54 | P.GSCN ---
History of Present Illness Consult date: 11/09/22 Reason for Consult: Carotid stenosis Requesting physician: David Kinsey History of present illness: The patient is 71-year-old male who presented to the hospital 3 days ago for altered mental status changes as well as garbled speech. He had a CT of the brain on admission that showed no acute intracranial process, nonspecific white matter changes likely secondary to chronic small vessel ischemic disease. Neurology was consulted ordered a carotid duplex that reported 50-70% internal carotid artery stenosis bilaterally. He also had a brain MRI that showed no acute findings, background mild to moderate diffuse cerebral atrophy and moderate chronic small vessel ischemic change redemonstrated. Old lacunar infarct right lateral thalamus redemonstrated. No abnormal enhancement seen. He then had a CT angiogram of the head and neck no evidence of dissection of cervical internal carotid arteries and vertebral arteries, predominantly calcified plaque at the carotid bifurcation with 50-75% stenosis bilaterally. Vascular surgery was consulted for carotid stenosis. Patient seen and examined lying in bed. He is alert and oriented 3. Patient answers questions appropriately. He states that he is unsure exactly what happened that day but does not recall any vision loss, just difficulty with swallowing or weakness. He states that he did recall having difficulty with speaking. He states that he did have a stroke a few years ago which appears to be in 2017. He is unsure the reason of a stroke and had no follow-up. He also states he has a history of coronary artery disease. Patient had EEG that is m ildly abnormal due to background slowing of mild degree. Suggestive of generalized cerebral dysfunction, nonspecific etiology, suggest mild encephalopathy. No lip deformity activity seen. He currently denies any focal deficits. He is [id number], again answering questions appropriately and speech seems mostly fluent. He denies any shortness of breath or chest pain, no abdominal pain nausea or vomiting. Review of Systems A 14 point review systems was completed all pertinent positives and negatives as stated in the HPI. Past Medical History Past Medical History: Coronary Artery Disease (CAD), Heart Failure, CVA/TIA, Diabetes Mellitus, Hyperlipidemia, Hypertension, Myocardial Infarction (TN), Syncope, Thyroid Disorder Additional Past Medical History / Comment(s): CT of the brain in September 2017 demonstrated old right lacunar infarct Last Myocardial Infarction Date:: 12/06/2018 History of Any Multi-Drug Resistant Organisms: None Reported Past Surgical History: Orthopedic Surgery Additional Past Surgical History / Comment(s): right hip, Past Anesthesia/Blood Transfusion Reactions: No Reported Reaction Past Psychological History: Bipolar, PTSD Smoking Status: Never smoker Past Alcohol Use History: None Reported Past Drug Use History: None Reported - Past Family History Father Family Medical History: No Reported History Mother Family Medical History: No Reported History Medications and Allergies Home Medications Medication Instructions Recorded Confirmed Type metFORMIN HCL 500 mg PO TID 02/06/19 11/06/22 History Atorvastatin [Lipitor] 40 mg PO DAILY 10/09/19 11/06/22 History INSULIN ASPART (NovoLOG) [NovoLOG 15 unit SQ AC-TID 10/09/19 11/06/22 History (formulary)] Metoprolol Tartrate [Lopressor] 12.5 mg PO BID 10/09/19 11/06/22 History Midodrine [ProAmatine] 7.5 mg PO TID 10/09/19 11/06/22 History fluvoxaMINE [Luvox] 50 mg PO DAILY 10/09/19 11/06/22 History Aspirin EC [Ecotrin] 325 mg PO DAILY 11/06/22 11/06/22 History Insulin Glargine,Hum.rec.anlog 32 units SQ HS 11/06/22 11/06/22 History [Toujeo Solostar] Levothyroxine Sodium [Synthroid] 100 mcg PO DAILY 11/06/22 11/06/22 History Semaglutide [Ozempic] 0.25 mg SQ Q7D 11/06/22 11/06/22 History Allergies Allergy/AdvReac Type Severity Reaction Status Date / Time No Known Allergies Allergy Verified 03/28/22 05:35 Surgical - Exam Vital Signs Temp Pulse Resp BP Pulse Ox 97.6 F 67 20 212/96 98 11/06/22 07:14 11/06/22 07:14 11/06/22 07:14 11/06/22 07:14 11/06/22 07:14 General appearance: The patient is alert, oriented, appears in no acute distress. HET: Head is normocephalic and atraumatic. Pupils are equal and reactive. Neck: Supple without lymphadenopathy. Trachea midline. No audible carotid bruit. Heart: Regular. Lungs: Equal expansion, normal respiratory effort. Abdomen: Soft, nontender, nondistended. Extremities: Normal skin color and turgor. No cyanosis, rash, ulceration, clubbing, or edema. Neurological: Patient has facial symmetry, speech is fluent. He is alert and oriented 3. He is strength and tone are normal bilaterally. Results - Labs 11/07/22 03:53 11/09/22 07:46 Abnormal Lab Results - Last 24 Hours (Table) 11/08/22 11/08/22 11/08/22 Range/Units 11:35 11:50 17:01 Chloride (98-107) mmol/L Glucose (74-99) mg/dL POC Glucose (mg/dL) 321 H 307 H (70-110) mg/dL Calcium (8.4-10.2) mg/dL Urine Protein Trace H (Negative) Urine Glucose (UA) 4+ H (Negative) Urine Ketones Trace H (Negative) Urine Blood Small H (Negative) Ur Leukocyte Esterase Trace H (Negative) Urine WBC 7 H (0-5) /hpf Urine Bacteria Rare H (None) /hpf Urine Mucus Rare H (None) /hpf 11/08/22 11/09/22 11/09/22 Range/Units 19:55 02:22 06:20 Chloride (98-107) mmol/L Glucose (74-99) mg/dL POC Glucose (mg/dL) 303 H 277 H 165 H (70-110) mg/dL Calcium (8.4-10.2) mg/dL Urine Protein (Negative) Urine Glucose (UA) (Negative) Urine Ketones (Negative) Urine Blood (Negative) Ur Leukocyte Esterase (Negative) Urine WBC (0-5) /hpf Urine Bacteria (None) /hpf Urine Mucus (None) /hpf 11/09/22 Range/Units 07:46 Chloride 108 H (98-107) mmol/L Glucose 139 H (74-99) mg/dL POC Glucose (mg/dL) (70-110) mg/dL Calcium 7.9 L (8.4-10.2) mg/dL Urine Protein (Negative) Urine Glucose (UA) (Negative) Urine Ketones (Negative) Urine Blood (Negative) Ur Leukocyte Esterase (Negative) Urine WBC (0-5) /hpf Urine Bacteria (None) /hpf Urine Mucus (None) /hpf Microbiology - Last 24 Hours (Table) 11/06/22 20:20 Blood Culture - Preliminary Blood No Growth after 48 hours 11/06/22 19:08 Blood Culture - Preliminary Blood No Growth after 48 hours Diabetes panel 11/09/22 Range/Units 07:46 Sodium 137 (137-145) mmol/L Potassium 4.2 (3.5-5.1) mmol/L Chloride 108 H (98-107) mmol/L Carbon Dioxide 22 (22-30) mmol/L BUN 12 (9-20) mg/dL Creatinine 0.98 (0.66-1.25) mg/dL Glucose 139 H (74-99) mg/dL Calcium 7.9 L (8.4-10.2) mg/dL Calcium panel 11/09/22 Range/Units 07:46 Calcium 7.9 L (8.4-10.2) mg/dL Pituitary panel 11/09/22 Range/Units 07:46 Sodium 137 (137-145) mmol/L Potassium 4.2 (3.5-5.1) mmol/L Chloride 108 H (98-107) mmol/L Carbon Dioxide 22 (22-30) mmol/L BUN 12 (9-20) mg/dL Creatinine 0.98 (0.66-1.25) mg/dL Glucose 139 H (74-99) mg/dL Calcium 7.9 L (8.4-10.2) mg/dL Adrenal panel 11/09/22 Range/Units 07:46 Sodium 137 (137-145) mmol/L Potassium 4.2 (3.5-5.1) mmol/L Chloride 108 H (98-107) mmol/L Carbon Dioxide 22 (22-30) mmol/L BUN 12 (9-20) mg/dL Creatinine 0.98 (0.66-1.25) mg/dL Glucose 139 H (74-99) mg/dL Calcium 7.9 L (8.4-10.2) mg/dL Assessment and Plan Assessment: 1. Altered mental status changes 2. Transient expressive aphasia resolved, MRI with no acute changes 3. Carotid stenosis 50-70% bilaterally 4. History of previous stroke, old lacunar infarct right lateral thalamus upper MRI 5. History coronary artery disease 6. Diabetes mellitus 7. Hypertension Plan: 1. Continue symptomatic and supportive care 2. Continue with OT/PT 3. Continue aspirin and Plavix 4. Continue recommendations from neurology 5. Recommend outpatient follow-up further discussion and evaluation for intervention Thank you for this consultation, we will sign off at this time. The impression and plan of care has been dictated as directed. I performed a history and examination of this patient, discussed the same with the dictator. I agree with the dictator's note ,documented as a scribe. Any additional findings or plans will be noted.
--- NOTE | 2022-11-09 15:28 | P.DS ---
Providers Date of admission: 11/06/22 10:10 Attending physician: Mariano Sanchez Consults: 11/06/22 10:09 Consult Physician Urgent Consulting Provider: David Kinsey Consult Reason/Comments: ams Do you want consulting provider notified?: Yes 11/07/22 11:38 Consult Physician Routine Consulting Provider: Thierno Aguilar Consult Reason/Comments: fever Do you want consulting provider notified?: Yes 11/09/22 09:53 Consult Physician Routine Consulting Provider: Evaristo Brady Consult Reason/Comments: TIA, bilateral ICA stenosis 50-75%. Do you want consulting provider notified?: Yes Primary care physician: Zaida Horton Hospital Course: Final Diagnosis -Altered mental status etiology is not clear at this time, rule out stroke. Possible hyperammonemia which has resolved. Patient has improved and is now alert and oriented x 3. -Mild acute kidney injury mostly prerenal with creatinine 1.27 on admission, improved. -Nausea/vomiting improved possible mild colitis on abdominal CT no reports of diarrhea. -Coronary artery disease -Type 2 diabetes mellitus with hyperglycemia A1C found to be 8.8 -Hyperlipidemia -Hypertension -Hypothyroidism -History of CVA in 2018 Full Code Discharge Disposition Patient is stable for discharge to subacute rehab pending echocardiogram. He has been cleared to follow up with vascular services outpatient for bilateral carotid artery stenosis. Patient has been started on plavix for stroke prevention. He continues on lipitor, aspirin. Patient has been started on amlodipine for blood pressure control. Continues on metoprolol. Recommend to hold midodrine as pressures have not been low. Patient recommended to continue oral augmentin for 3 more days. Insulin has been increased as well. Recommend to see endocrinology on discharge. Patient also follows with Dr. Guerline [facility] and also Dr. Nohemy Thompson with [facility] would recommend to see both providers on discharge. Repeat labs in 2 to 3 days. Hospital Course This is a 71-year-old male came in the emergency department with complaints of altered mental status and patient is in usual state of health until yesterday evening and found to be completely confused alert x 0. Patient was having nausea vomiting in the ER. Patient doesn't have any fever chills urine drug screen is negative. Patient doesn't have any leukocytosis chest x-ray did not show any significant abnormality. Ammonia was slightly elevated at 32 and responded well to latulose which ammonia has improved to 9. CT of the head showed some chronic microvascular ischemic changes but nothing acute. Patient was also hyperglycemic on admission and was started on insulin gtt which he was taken off of and did well back on injectible insulin. He would benefit from endocrinology referral on discharge. hgb A1C found to be 8.6. Neurology was consulted. Patient underwent full stroke work up. MRI was done showing no evidence for recent infarct. There is old lacunar infarct right lateral thalamus and also mild to moderate diffuse cerebral atrophy and moderate chronic small vessel ischemic change. EEG negative for seizure like activity. Carotid doppler done showing Carotid doppler showing 50-70% stenosis bilaterally. Follow up CTA shows right carotid bifurcation with 50 to 75% stenosis and also left mid common carotid artery showing 25 to 50% stenosis and also left carotid bifurcation showing 50 to 75% stenosis. Vascular services has reviewed imaging and will see patient once discharged. Plavix has been added. He did develop fever x1 and with continued confusion he was started on empiric antibiotics and infectious disease was consulted. Procalcitonin level found to be 0.58. Patient improved with antibiotics and hydration. Blood culture has been negative so far. Urinalysis not suggestive of infection. He did have abdominal pelvis CT done showing possible mild uncomplicated colitis left colon versus product of poor distention. He had some mild abominal tenderness that has resolved. No reports of diarrhea. He has been receiving IV zosyn during hospital stay and will be discharged on short course of oral augmentin. Other than one isolated fever he has remained afebrile, he has been taken off midodrine and blood pressure has been elevated this admission. He has been started on amlodipine and also metoprolol has been increased. He has been urinary without difficulty. Having bowel movements. Covid influenza A and B are negative. 11/09/2022 Patient evaluated today resting in bed. He did work with physical therapy today and recommended for subacute rehab on discharge which patient had refused ovi jade. His mentation has improved he is currently alert x 3 at this time. Focal neurological exam is negative. He has responded well to IV fluids and IV antibiotics and overall feeling much better. Blood sugar was elevated this admission today is fluctuating between 200 and 160s. He is denying shortness of breath, no cough. No abdominal tenderness. Echocardiogram postponed due to short staffing. Otherwise patient should be able to discharge to subacute rehab today if echocardiogram is completed and neurology clears. Otherwise will plan for discharge to subacute rehab tomorrow. Lungs are clear, S1 S2 auscultated, abdomen is soft and nontender. Focal neurological exam is negative. Abdomen is large and round nontender and soft. This is normal for patient. Normoactive bowel sounds. Most recent labs showing white count 14.7, hgb 11.9, sodium 137, potassium 4.2, chloride 108, BUN 12, creatinine 0.98. Blood glucose 226, calcium 7.9. Afebrile, heart rate 92, blood pressure 158/80, 95% room air. Total time taken in discharge planning greater than 35 minutes. Please see medication reconciliation for a list of current medication. Thank you for allowing us to participate in the care of this patient. The impression and plan of care has been dictated by Fe Fair Nurse Practitioner as directed. Dr. Joe MD I have performed a history and physical examination and medical decision making of this patient, discussed the same with the dictator, and agree with the dictators assessment and plan as written, documented as a scribe. Based on total visit time, I have performed more than 50% of this visit. Patient Condition at Discharge: Fair Plan - Discharge Summary Discharge Rx Participant: Yes New Discharge Prescriptions: New Folic Acid 1 mg PO DAILY #30 tab amLODIPine [Norvasc] 10 mg PO DAILY #30 tab Clopidogrel [Plavix] 75 mg PO DAILY #30 tab Cyanocobalamin [Vitamin B-12] 1,000 mcg PO DAILY #30 tablet Amoxic-Pot Clav 875-125Mg [Augmentin 875-125] 1 tab PO BID 3 Days #6 tab Pantoprazole Sodium [Protonix] 20 mg PO AC-BRKFST #30 tab Metoprolol Tartrate [Lopressor] 25 mg PO BID tab Continue metFORMIN HCL 500 mg PO TID fluvoxaMINE [Luvox] 50 mg PO DAILY INSULIN ASPART (NovoLOG) [NovoLOG (formulary)] 15 unit SQ AC-TID Atorvastatin [Lipitor] 40 mg PO DAILY Levothyroxine Sodium [Synthroid] 100 mcg PO DAILY Semaglutide [Ozempic] 0.25 mg SQ Q7D Aspirin EC [Ecotrin] 325 mg PO DAILY Changed Insulin Glargine,Hum.rec.anlog [Toujeo Solostar] 37 units SQ HS #0 Discontinued Metoprolol Tartrate [Lopressor] 12.5 mg PO BID Midodrine [ProAmatine] 7.5 mg PO TID Discharge Medication List metFORMIN HCL 500 mg PO TID 02/06/19 [History] Atorvastatin [Lipitor] 40 mg PO DAILY 10/09/19 [History] INSULIN ASPART (NovoLOG) [NovoLOG (formulary)] 15 unit SQ AC-TID 10/09/19 [History] fluvoxaMINE [Luvox] 50 mg PO DAILY 10/09/19 [History] Aspirin EC [Ecotrin] 325 mg PO DAILY 11/06/22 [History] Levothyroxine Sodium [Synthroid] 100 mcg PO DAILY 11/06/22 [History] Semaglutide [Ozempic] 0.25 mg SQ Q7D 11/06/22 [History] Amoxic-Pot Clav 875-125Mg [Augmentin 875-125] 1 tab PO BID 3 Days #6 tab 11/09/22 [Rx] Clopidogrel [Plavix] 75 mg PO DAILY #30 tab 11/09/22 [Rx] Cyanocobalamin [Vitamin B-12] 1,000 mcg PO DAILY #30 tablet 11/09/22 [Rx] Folic Acid 1 mg PO DAILY #30 tab 11/09/22 [Rx] Insulin Glargine,Hum.rec.anlog [Toujeo Solostar] 37 units SQ HS #0 11/09/22 [Rx] Metoprolol Tartrate [Lopressor] 25 mg PO BID tab 11/09/22 [Rx] Pantoprazole Sodium [Protonix] 20 mg PO AC-BRKFST #30 tab 11/09/22 [Rx] amLODIPine [Norvasc] 10 mg PO DAILY #30 tab 11/09/22 [Rx] Follow up Appointment(s)/Referral(s): Sol Cerda MD [Primary Care Provider] - 1-2 days Robin Joshua MD [REFERRING] - 1 Week Evaristo Brady DO [STAFF PHYSICIAN] - 1 Week [facility], [NON-STAFF] - Jarocho Corley MD [REFERRING] - 1 Week Ambulatory/Diagnostic Orders: Basic Metabolic Panel [LAB.AMB] Time Frame: 3 Days, Location: None Selected Complete Blood Count w/diff [LAB.AMB] Time Frame: 3 Days, Location: None Selected Activity/Diet/Wound Care/Special Instructions: Recommend to see neurology on discharge Complete 3 more days of oral antibiotics Follow up with vascular services on discharge regarding carotid artery stenosis --Dr. Brady Follow up with primary care in 1 to 2 days. Discontinue midodrine and monitor blood pressure at home. Recommend to see endocrinology on discharge for blood sugar control. Discharge Disposition: TRANSFER TO SNF/ECF
--- NOTE | 2022-11-09 15:54 | P.PN ---
Subjective Progress Note Date: 11/08/22 Principal diagnosis: Leukocytosis antoni is a 71-year male with a past medical history pertinent for coronary disease CVA TIA diabetes mellitus hypertension, patient was brought into the ER for evaluation of mental status changes, patient did not have any fever during this hospital stay, initial white count was normal subsequent white count was elevated. On today's evaluation that is 11/08/2022 the patient remains to be afebrile, the patient is feeling much better the patient denies having any headache no chest pain or shortness of breath occasional cough no abdominal pain or diarrhea Objective - Vital Signs Vital signs: Vital Signs Temp 98.3 F 11/08/22 11:10 Pulse 88 11/08/22 11:10 Resp 18 11/08/22 11:10 BP 113/92 11/08/22 11:10 Pulse Ox 95 11/08/22 11:10 FiO2 Intake & Output 11/07/22 11/08/22 11/08/22 18:59 06:59 18:59 Intake Total 539.605 4649 120 Output Total 300 450 Balance 287.805 840 -330 Weight 104.326 kg Intake: Intake, IV Titration 47.805 900 Amount Insulin Regular 100 unit 47.805 In Sodium Chloride 0.9% 100 ml @ 0.1 UNITS/KG/HR 10.537 mls/hr IV .[id number] [facility] Rx#:[id number] Piperacillin-Tazobactam 3 100 .375 gm In Sodium Chloride 0.9% 100 ml @ 25 mls/hr IVPB Q8HR [facility] Rx# :[id number] Sodium Chloride 0.9% 1, 300 000 ml @ 75 mls/hr IV . [id number] [facility] Rx#:[id number] Vancomycin 1,750 mg In 500 Sodium Chloride 0.9% 500 ml 500 ml @ 167 mls/hr IVPB Q16H [facility] Rx#: [id number] Oral 240 240 120 Output: Urine 300 450 Other: Voiding Method Diaper Diaper Diaper Incontinent Incontinent Incontinent # Voids 2 - Exam GENERAL DESCRIPTION: An elderly male lying in bed in no distress RESPIRATORY SYSTEM: Unlabored breathing , decreased breath sounds at bases HEART: S1 S2 regular rate and rhythm , ABDOMEN: Soft , no tenderness EXTREMITIES: No edema feet - Labs CBC & Chem 7: 11/07/22 03:53 11/09/22 07:46 Labs: Abnormal Lab Results - Last 24 Hours (Table) 11/07/22 11/07/22 11/07/22 Range/Units 00:32 15:12 15:39 Chloride (98-107) mmol/L Carbon Dioxide (22-30) mmol/L Glucose (74-99) mg/dL POC Glucose (mg/dL) 113 H 111 H (70-110) mg/dL Calcium (8.4-10.2) mg/dL Procalcitonin 0.58 H (0.02-0.09) ng/mL Urine Protein (Negative) Urine Glucose (UA) (Negative) Urine Blood (Negative) 11/07/22 11/07/22 11/08/22 Range/Units 18:24 20:02 06:05 Chloride (98-107) mmol/L Carbon Dioxide (22-30) mmol/L Glucose (74-99) mg/dL POC Glucose (mg/dL) 116 H 130 H 151 H (70-110) mg/dL Calcium (8.4-10.2) mg/dL Procalcitonin (0.02-0.09) ng/mL Urine Protein (Negative) Urine Glucose (UA) (Negative) Urine Blood (Negative) 11/08/22 11/08/22 11/08/22 Range/Units 06:46 11:35 11:50 Chloride 112 H (98-107) mmol/L Carbon Dioxide 19 L (22-30) mmol/L Glucose 156 H (74-99) mg/dL POC Glucose (mg/dL) 321 H (70-110) mg/dL Calcium 8.0 L (8.4-10.2) mg/dL Procalcitonin (0.02-0.09) ng/mL Urine Protein Trace H (Negative) Urine Glucose (UA) 4+ H (Negative) Urine Blood Small H (Negative) Microbiology - Last 24 Hours (Table) 11/06/22 20:20 Blood Culture - Preliminary Blood No Growth after 24 hours 11/06/22 19:08 Blood Culture - Preliminary Blood No Growth after 24 hours Assessment and Plan (1) Leukocytosis Current Visit: Yes Status: Acute Code(s): D72.829 - ELEVATED WHITE BLOOD CELL COUNT, UNSPECIFIED SNOMED Code(s): 610931238 Plan: 1patient presented to hospital with mental status changes however at this point the patient is fully awake and alert and know that he is at [facility] denies any headache clinic suspicious low for meningitis or encephalitis possible metabolic versus abdominal source in this patient with a negative UA. 2 Patient with renal insufficiency high risk of nephrotoxicity. 3patient did have CT of abdominal pelvis with oral contrast which did not show any abscess or colitis. 4patient repeat UA was negative as well. 5patient to continue with Zosyn while waiting for the cultures to finalize Time with Patient: Less than 30
--- NOTE | 2022-11-09 15:55 | P.PN ---
Subjective Progress Note Date: 11/09/22 Principal diagnosis: Leukocytosis atramana is a 71-year male with a past medical history pertinent for coronary disease CVA TIA diabetes mellitus hypertension, patient was brought into the ER for evaluation of mental status changes, patient did not have any fever during this hospital stay, initial white count was normal subsequent white count was elevated. On today's evaluation that is 11/09/2022 the patient continues to be afebrile, the patient is breathing comfortably on room air, patient denies having any chest pain occasional cough no nausea no vomiting no abdominal pain or diarrhea Objective - Vital Signs Vital signs: Vital Signs Temp 97.5 F L 11/09/22 07:44 Pulse 92 11/09/22 13:17 Resp 18 11/09/22 11:00 BP 158/80 11/09/22 11:00 Pulse Ox 95 11/09/22 11:00 FiO2 Intake & Output 11/08/22 11/09/22 11/09/22 18:59 06:59 18:59 Intake Total 120 640 120 Output Total 450 200 Balance -330 640 -80 Weight 104.326 kg Intake: Intake, IV Titration 400 Amount Piperacillin-Tazobactam 3 100 .375 gm In Sodium Chloride 0.9% 100 ml @ 25 mls/hr IVPB Q8HR [facility] Rx# :[id number] Sodium Chloride 0.9% 1, 300 000 ml @ 75 mls/hr IV . [id number] [facility] Rx#:[id number] Oral 120 240 120 Output: Urine 450 200 Other: Voiding Method Diaper Diaper Urinal Incontinent Incontinent Diaper Incontinent # Bowel Movements 1 - Exam GENERAL DESCRIPTION: An elderly male lying in bed in no distress RESPIRATORY SYSTEM: Unlabored breathing , decreased breath sounds at bases HEART: S1 S2 regular rate and rhythm , ABDOMEN: Soft , no tenderness EXTREMITIES: No edema feet - Labs CBC & Chem 7: 11/07/22 03:53 11/09/22 07:46 Labs: Abnormal Lab Results - Last 24 Hours (Table) 11/08/22 11/08/22 11/08/22 Range/Units 11:50 17:01 19:55 Chloride (98-107) mmol/L Glucose (74-99) mg/dL POC Glucose (mg/dL) 307 H 303 H (70-110) mg/dL Calcium (8.4-10.2) mg/dL Urine Ketones Trace H (Negative) Ur Leukocyte Esterase Trace H (Negative) Urine WBC 7 H (0-5) /hpf Urine Bacteria Rare H (None) /hpf Urine Mucus Rare H (None) /hpf 11/09/22 11/09/22 11/09/22 Range/Units 02:22 06:20 07:46 Chloride 108 H (98-107) mmol/L Glucose 139 H (74-99) mg/dL POC Glucose (mg/dL) 277 H 165 H (70-110) mg/dL Calcium 7.9 L (8.4-10.2) mg/dL Urine Ketones (Negative) Ur Leukocyte Esterase (Negative) Urine WBC (0-5) /hpf Urine Bacteria (None) /hpf Urine Mucus (None) /hpf 11/09/22 Range/Units 11:40 Chloride (98-107) mmol/L Glucose (74-99) mg/dL POC Glucose (mg/dL) 226 H (70-110) mg/dL Calcium (8.4-10.2) mg/dL Urine Ketones (Negative) Ur Leukocyte Esterase (Negative) Urine WBC (0-5) /hpf Urine Bacteria (None) /hpf Urine Mucus (None) /hpf Microbiology - Last 24 Hours (Table) 11/06/22 20:20 Blood Culture - Preliminary Blood No Growth after 48 hours 11/06/22 19:08 Blood Culture - Preliminary Blood No Growth after 48 hours Assessment and Plan (1) Leukocytosis Current Visit: Yes Status: Acute Code(s): D72.829 - ELEVATED WHITE BLOOD C ELL COUNT, UNSPECIFIED SNOMED Code(s): 822062731 Plan: 1patient presented to hospital with mental status changes however at this point the patient is fully awake and alert and know that he is at [facility] denies any headache clinic suspicious low for meningitis or encephalitis possible metabolic versus abdominal source in this patient with a negative UA. 2 Patient with renal insufficiency high risk of nephrotoxicity. 3patient did have CT of abdominal pelvis with oral contrast which did not show any abscess or colitis. 4patient repeat UA was negative as well. 5patient has shown overall clinical improvement and cultures has been negative may consider short course of oral Augmentin on discharge Time with Patient: Less than 30
[2022-11-09 16:26] LABS: Glucose,Whole Blood 288 mg/dL (70-110)
[2022-11-09 20:12] LABS: Glucose,Whole Blood 262 mg/dL (70-110)
[2022-11-09] MEDS: METOPROLOL TARTRATE 25 MG TAB PO SCH (21:16)
[2022-11-09] MEDS: INSULIN DETEMIR (LEVEMIR) 100 UNIT/ML SYR SQ SCH (21:16)
[2022-11-10 01:59] LABS: Glucose,Whole Blood 209 mg/dL (70-110)
[2022-11-10] MEDS: PIPERACILLIN-TAZOBACTAM 3.375 GM in SODIUM CHLORIDE 0.9% 100 ML IVPB SCH ×2 (02:40→10:17)
[2022-11-10] MEDS: HEPARIN SODIUM,PORCINE/PF 5,000 UNIT/0.5 ML SYRINGE SQ SCH ×2 (02:41→10:17)
[2022-11-10] MEDS: INSULIN ASPART (NovoLOG) 100 UNIT/ML VIAL SQ SCH ×5 (02:41→12:07)
[2022-11-10 06:02] LABS: Glucose,Whole Blood 127 mg/dL (70-110)
[2022-11-10] MEDS: LEVOTHYROXINE 100 MCG TAB PO SCH (06:10)
[2022-11-10] MEDS: ASPIRIN 325 MG TAB PO SCH (07:38)
[2022-11-10] MEDS: LACTULOSE 20 GM/30 ML CUP PO SCH (07:38)
[2022-11-10] MEDS: CLOPIDOGREL 75 MG TAB PO SCH (07:38)
[2022-11-10] MEDS: amLODIPine 10 MG TAB PO SCH (07:38)
[2022-11-10] MEDS: METOPROLOL TARTRATE 25 MG TAB PO SCH (07:38)
[2022-11-10] MEDS: PANTOPRAZOLE 40 MG/10 ML VIAL IV SCH (07:38)
[2022-11-10] MEDS: FOLIC ACID 1 MG TAB PO SCH (07:38)
[2022-11-10] MEDS: CYANOCOBALAMIN 1,000 MCG/ML 1 ML VIAL IM SCH (07:38)
[2022-11-10] MEDS: ATORVASTATIN 40 MG TAB PO SCH (07:39)
[2022-11-10 07:45] VITALS: RESP 18; TEMP 97.8
--- NOTE | 2022-11-10 09:37 | P.PN ---
Subjective Progress Note Date: 11/09/22 Patient was seen for a follow-up. Patient is doing much better. No further seizure type spells. No focal symptoms. Patient is now fully alert and awake. Patient's speech and language functions appears normal. Patient denies any history of seizures. He denies any headache, diplopia and this time. No dizziness. Patient states that his girlfriend called the ambulance prior to the arrival. He does not remember at all what happened. However he does remember me from encounter yesterday in the ER. Denies any focal symptoms at this time. Objective - Vital Signs Vital signs: Vital Signs Temp 98.2 F 11/09/22 15:02 Pulse 94 11/09/22 15:02 Resp 18 11/09/22 15:02 BP 157/76 11/09/22 15:02 Pulse Ox 95 11/09/22 15:02 FiO2 Intake & Output 11/08/22 11/09/22 11/09/22 18:59 06:59 18:59 Intake Total 120 640 120 Output Total 450 200 Balance -330 640 -80 Weight 104.326 kg Intake: Intake, IV Titration 400 Amount Piperacillin-Tazobactam 3 100 .375 gm In Sodium Chloride 0.9% 100 ml @ 25 mls/hr IVPB Q8HR [facility] Rx# :[id number] Sodium Chloride 0.9% 1, 300 000 ml @ 75 mls/hr IV . [id number] [facility] Rx#:[id number] Oral 120 240 120 Output: Urine 450 200 Other: Voiding Method Diaper Diaper Urinal Incontinent Incontinent Diaper Incontinent # Bowel Movements 1 - Exam Patient is alert and awake. He knows he is in [facility] in [facility]. He knows his age 71 and that it is October, and the year is 2021. He is able to tell name of the president Mr. Pedro Romo. Patient able to name objects like pen, glasses, fingers, thumb, ear, and also able to tell me detailed objects like "ear lobe, knuckles", which she was not able to name yesterday. Patient can repeat very well. Patient's cranial nerves are normal. Visual krishna are full. Face is symmetric. Muscle strength is normal. No pronator drift. Sensory touch is equal with no neglect. Cerebellar functions revealed tremulousness with the questionable ataxia upper extremities left more than right. Patient's stomach is very protuberant, but nontender. - Labs CBC & Chem 7: 11/07/22 03:53 11/09/22 07:46 Labs: Abnormal Lab Results - Last 24 Hours (Table) 11/08/22 11/09/22 11/09/22 Range/Units 19:55 02:22 06:20 Chloride (98-107) mmol/L Glucose (74-99) mg/dL POC Glucose (mg/dL) 303 H 277 H 165 H (70-110) mg/dL Calcium (8.4-10.2) mg/dL 11/09/22 11/09/22 11/09/22 Range/Units 07:46 11:40 16:24 Chloride 108 H (98-107) mmol/L Glucose 139 H (74-99) mg/dL POC Glucose (mg/dL) 226 H 288 H (70-110) mg/dL Calcium 7.9 L (8.4-10.2) mg/dL Microbiology - Last 24 Hours (Table) 11/06/22 20:20 Blood Culture - Preliminary Blood No Growth after 48 hours 11/06/22 19:08 Blood Culture - Preliminary Blood No Growth after 48 hours Assessment and Plan Assessment: * Transient expressive aphasia, now seems to have resolved. No evidence of CVA on MRI of the brain. Possible TIA versus hypertensive encephalopathy. * Hypertension, accelerated on presentation. * Diabetes, uncontrolled * Hyperlipidemia * Coronary artery disease * Leukocytosis, unclear cause * Obesity * Hypothyroidism Plan: * MRI of the brain revealed no acute stroke. Mild to moderate diffuse cerebral atrophy and moderate chronic small vessel ischemic change. Old lacunar infarct right lateral thalamus. I personally reviewed MRI, agree with the findings. * Carotid Doppler revealed bilateral stenosis 50-70%. Bilateral plaque formation. Right vertebral had antegrade flow. Left vertebral is not visualized. * CTA of head and neck revealed 50-75% stenosis bilateral carotid bifurcations. Vascular surgery was consulted, recommending continue dual antiplatelet medications and follow-up in the office. * Continue Plavix 75 mg daily for possible TIA. Decrease aspirin to 81 mg daily. Continue DAP for 21 days, then maintain on Plavix 75 mg daily. * Fasting lipid panel cholesterol 145, LDL 81, HDL 34 and triglycerides 144. Continue Lipitor 40 mg daily. * Hemoglobin A1c 8.8. Recommend optimize control of diabetes to target A1c <7.0 * Optimize blood pressure to target <130/80 * B12 296, folate 9.6, TSH 8.23, free T4 1.42 normal. RPR nonreactive. Ammonia is 32. Patient will be started on B12 and folate replacement. * Telemetric monitoring showing normal sinus rhythm. * EEG was mildly abnormal due to background slowing of mild degree. This is suggestive of generalized cerebral dysfunction, nonspecific etiology, may s uggest mild encephalopathy. No indication for antiepileptic medication. * Optimize control of blood pressure. Current blood pressure 168/93 * Neurologically clear for discharge. Follow up with vascular surgery as an outpatient. Aggressive control of vascular risk factors as mentioned above.
--- NOTE | 2022-11-10 10:45 | CA ---
Transthoracic Echo Report Name: Faisal Lozano Age: 71 Gender: M : 1950 Exam Date: 11/10/2022 08:51 Exam Location: [facility] Ht (in): 73 Wt (lb): 230 Ordering Physician: David Kinsey MD Attending/Referring Phys: [employer] Paralegal Fanny Prasad RDCS Procedure CPT: Indications: probable CVA Cardiac Hx: Technical Quality: Poor Contrast 1: Lumason Total Dose (mL): 4 Contrast 2: Total Dose (mL): MEASUREMENTS (Male / Female) Normal Values 2D ECHO LV Diastolic Diameter PLAX 4.9 cm 4.2 - 5.9 / 3.9 - 5.3 cm LV Systolic Diameter PLAX 3.8 cm IVS Diastolic Thickness 1.2 cm 0.6 - 1.0 / 0.6 - 0.9 cm LVPW Diastolic Thickness 1.1 cm 0.6 - 1.0 / 0.6 - 0.9 cm LV Relative Wall Thickness 0.5 LA Volume 76.8 cm??? 18 - 58 / 22 - 52 cm??? DOPPLER AV Peak Velocity 133.8 cm/s AV Peak Gradient 7.2 mmHg LVOT Peak Velocity 83.4 cm/s LVOT Peak Gradient 2.8 mmHg MV Area PHT 3.1 cm??? Mitral E Point Velocity 88.5 cm/s Mitral A Point Velocity 115.7 cm/s Mitral E to A Ratio 0.8 MV Deceleration Time 242.0 ms FINDINGS Left Ventricle Mildly increased septal wall thickness. Mid septal wall hypokinesis. Peserved EF, left ventricular ejection fraction is estimated at 50 %. Right Ventricle Right ventricle not well visualized. Right Atrium Right atrium not well visualized. Left Atrium Moderately increased left atrial volume. Mildly increased left atrial area. Mitral Valve Structurally normal mitral valve. No mitral stenosis. Mild mitral regurgitation. Aortic Valve Aortic valve not well visualized. No aortic valve stenosis or regurgitation. Tricuspid Valve Tricuspid valve not well visualized. Pulmonic Valve Pulmonic valve not well visualized. Pericardium No pericardial effusion. Aorta Aortic root and proximal ascending aorta not well visualized. CONCLUSIONS Technically suboptimal and incomplete study Preserved LV function with an ejection fraction of 50% Mild mitral regurgitation Previewed by: Dr. Petros Thompson MD (Electronically Signed) Final Date: 10 November 2022 10:44
[2022-11-10 11:28] VITALS: BP 147/85; PULSE 76
[2022-11-10 11:28] LABS: Glucose,Whole Blood 123 mg/dL (70-110)
--- NOTE | 2022-11-10 20:28 | P.PN ---
Subjective Progress Note Date: 11/10/22 Principal diagnosis: Leukocytosis antoni is a 71-year male with a past medical history pertinent for coronary disease CVA TIA diabetes mellitus hypertension, patient was brought into the ER for evaluation of mental status changes, patient did not have any fever during this hospital stay, initial white count was normal subsequent white count was elevated. On today's evaluation that is 11/10/2022 the patient remains to be afebrile, the patient is breathing comfortably on room air, patient denies chest pain, the patient did have occasional dry cough no nausea no vomiting no abdominal pain or diarrhea Objective - Vital Signs Vital signs: Vital Signs Temp 97.8 F 11/10/22 07:34 Pulse 81 11/10/22 07:34 Resp 18 11/10/22 07:34 BP 159/89 11/10/22 07:34 Pulse Ox 95 11/10/22 07:34 FiO2 Intake & Output 11/09/22 11/10/22 11/10/22 18:59 06:59 18:59 Intake Total 360 537 Output Total 500 325 300 Balance -140 212 -300 Intake: Intake, IV Titration 300 Amount Sodium Chloride 0.9% 1, 300 000 ml @ 75 mls/hr IV . [id number] Rx#:[id number] Oral 360 237 Output: Urine 500 325 300 Other: Voiding Method Urinal Urinal Urinal Diaper Diaper Diaper Incontinent Incontinent Incontinent # Voids 2 # Bowel Movements 1 - Exam GENERAL DESCRIPTION: An elderly male lying in bed in no distress RESPIRATORY SYSTEM: Unlabored breathing , decreased breath sounds at bases HEART: S1 S2 regular rate and rhythm , ABDOMEN: Soft , no tenderness EXTREMITIES: No edema feet - Labs CBC & Chem 7: 11/07/22 03:53 11/09/22 07:46 Labs: Abnormal Lab Results - Last 24 Hours (Table) 11/09/22 11/09/22 11/09/22 Range/Units 11:40 16:24 20:09 POC Glucose (mg/dL) 226 H 288 H 262 H (70-110) mg/dL 11/10/22 11/10/22 Range/Units 01:57 06:00 POC Glucose (mg/dL) 209 H 127 H (70-110) mg/dL Microbiology - Last 24 Hours (Table) 11/06/22 20:20 Blood Culture - Preliminary Blood No Growth after 72 hours 11/06/22 19:08 Blood Culture - Preliminary Blood No Growth after 72 hours Assessment and Plan (1) Leukocytosis Status: Acute Code(s): D72.829 - ELEVATED WHITE BLOOD CELL COUNT, UNSPECIFIED SNOMED Code(s): 756085852 Plan: 1patient presented to hospital with mental status changes however at this point the patient is fully awake and alert and know that he is at [facility] denies any headache clinic suspicious low for meningitis or encephalitis possible metabolic versus abdominal source in this patient with a negative UA. 2 Patient with renal insufficiency high risk of nephrotoxicity. 3patient did have CT of abdominal pelvis with oral contrast which did not show any abscess or colitis. 4patient repeat UA was negative as well. 5patient has shown overall clinical improvement and cultures has been negative, patient will finish therapy with a short course of oral Augmentin and close outpatient follow-up Time with Patient: Less than 30
== END 2022-11-10 14:22 | DRG 642 ==
LOC: EC 07:11 → 5NMEDONC 10:10 → 3SCARD 20:16
PROVIDERS: ADMIT Hospitalist; ATTEND Hospitalist
DX: E72.4 Disorders of ornithine metabolism (principal); I63.9 Cerebral infarction, unspecified; G93.40 Encephalopathy, unspecified; J98.11 Atelectasis; N17.9 Acute kidney failure, unspecified; R47.01 Aphasia; E03.9 Hypothyroidism, unspecified; E11.65 Type 2 diabetes mellitus with hyperglycemia; E66.9 Obesity, unspecified; Z68.30 Body mass index [BMI] 30.0-30.9, adult; I34.0 Nonrheumatic mitral (valve) insufficiency; E78.5 Hyperlipidemia, unspecified; I50.9 Heart failure, unspecified; F31.9 Bipolar disorder, unspecified; F43.10 Post-traumatic stress disorder, unspecified; I11.0 Hypertensive heart disease with heart failure; I25.10 Atherosclerotic heart disease of native coronary artery without angina pectoris; I25.2 Old myocardial infarction; I65.23 Occlusion and stenosis of bilateral carotid arteries; Z20.822 Contact with and (suspected) exposure to COVID-19; Z79.02 Long term (current) use of antithrombotics/antiplatelets; D72.829 Elevated white blood cell count, unspecified; Z28.21 Immunization not carried out because of patient refusal; Z79.4 Long term (current) use of insulin; Z79.82 Long term (current) use of aspirin; Z79.84 Long term (current) use of oral hypoglycemic drugs; Z79.890 Hormone replacement therapy; Z79.899 Other long term (current) drug therapy; Z86.73 Personal history of transient ischemic attack (TIA), and cerebral infarction without residual deficits; Z71.3 Dietary counseling and surveillance; Z28.310 Unvaccinated for COVID-19
CPT/HCPCS: 36415; 70450; 70496; 70498; 70553; 71046; 74019; 74176; 80048; 80051; 80053; 80061; 80306; 80320; 81001; 82140; 82565; 82607; 82746; 82947; 83036; 84100; 84145; 84439; 84443; 84484; 84520; 85025; 85610; 85730; 86780; 87040; 87502; 87635; 93005; 93306; 93880; 94760; 95816; 96361; 96365; 96366; 96367; 96375; 96376; 99291

== ENCOUNTER 2023-08-16 20:24 | Emergency (ER) | payer MEDICARE, OTHER ==
[2023-08-16 21:46] LABS: Glucose,Whole Blood 338 mg/dL (70-110)
[2023-08-16 22:41] VITALS: RESP 18
[2023-08-16] MEDS ORDERED: SODIUM CHLORIDE 0.9% 1,000 ML IV STA (22:49)
[2023-08-16 23:01] LABS: Glucose,Whole Blood 277 mg/dL (70-110)
[2023-08-16 23:08] LABS: Basophils % (A) 0 %; Eosinophils # (A) 0.1 k/uL (0-0.7); Eosinophils % (A) 1 %; HCT 37.3 % (39.0-53.0); HGB 12.2 gm/dL (13.0-17.5); Lymphocytes # (A) 1.1 k/uL (1.0-4.8); Lymphocytes % (A) 10 %; MCH 28.5 pg (25.0-35.0); MCHC 32.7 g/dL (31.0-37.0); MCV 87.1 fL (80.0-100.0); Mean Platelet Volume 6.7; Monocytes % (A) 8 %; Neutrophils # (A) 9.1 k/uL (1.3-7.7); Neutrophils % (A) 79 %; Platelet Count 473 k/uL (150-450); RBC 4.28 m/uL (4.30-5.90); WBC 11.5 k/uL (3.8-10.6)
[2023-08-16 23:32] LABS: African American GFR (CKD) 51 (>60 ml/min/1.73 sqM); Anion Gap 15 mmol/L; Blood Urea Nitrogen 35 mg/dL (9-20); Calcium 9.6 mg/dL (8.4-10.2); Carbon Dioxide 19 mmol/L (22-30); Chloride 102 mmol/L (98-107); Glucose 280 mg/dL (74-99); Non-African American GFR(CKD) 44 (>60 ml/min/1.73 sqM); Potassium 4.5 mmol/L (3.5-5.1); Sodium 136 mmol/L (137-145)
[2023-08-16 23:41] VITALS: PULSE 85
--- NOTE | 2023-08-16 23:59 | ED ---
General Adult HPI - General Chief complaint: Recheck/Abnormal Lab/Rx Stated complaint: hyperglycemia Time Seen by Provider: 08/16/23 22:39 Source: patient, RN notes reviewed, old records reviewed Mode of arrival: EMS Limitations: no limitations - History of Present Illness Initial comments: Patient is a 72-year-old male who presents emergency department for hyperglycemia. Was seen this morning and Cassidy saw him for hypoglycemia and left AMA. Has been feeling well all day but checked his meter at home and it read high which is why presents for further evaluation. States he checked it before he took his insulin. Checked it right after eating a large meal. Denies any abdominal pain, nausea, vomiting, diarrhea. Denies any fevers, chills, co ugh, chest pain. No other acute complaints at this time. Presents with his for further evaluation for hyperglycemia. - Related Data Home Medications Medication Instructions Recorded Confirmed metFORMIN HCL 500 mg PO TID 02/06/19 11/06/22 Atorvastatin [Lipitor] 40 mg PO DAILY 10/09/19 11/06/22 INSULIN ASPART (NovoLOG) [NovoLOG 15 unit SQ AC-TID 10/09/19 11/06/22 (formulary)] fluvoxaMINE [Luvox] 50 mg PO DAILY 10/09/19 11/06/22 Levothyroxine Sodium [Synthroid] 100 mcg PO DAILY 11/06/22 11/06/22 Semaglutide [Ozempic] 0.25 mg SQ Q7D 11/06/22 11/06/22 Previous Rx's Medication Instructions Recorded Amoxic-Pot Clav 875-125Mg 1 tab PO BID 3 Days #6 tab 11/09/22 [Augmentin 875-125] Clopidogrel [Plavix] 75 mg PO DAILY #30 tab 11/09/22 Cyanocobalamin [Vitamin B-12] 1,000 mcg PO DAILY #30 tablet 11/09/22 Folic Acid 1 mg PO DAILY #30 tab 11/09/22 Insulin Glargine,Hum.rec.anlog 37 units SQ HS #0 11/09/22 [Janessa Solostedgar] Metoprolol Tartrate [Lopressor] 25 mg PO BID tab 11/09/22 Pantoprazole Sodium [Protonix] 20 mg PO AC-BRKFST #30 tab 12/15/22 amLODIPine [Norvasc] 10 mg PO DAILY #30 tab 11/09/22 Allergies Allergy/AdvReac Type Severity Reaction Status Date / Time No Known Allergies Allergy Verified 08/16/23 21:49 Review of Systems ROS Statement: Those systems with pertinent positive or pertinent negative responses have been documented in the HPI. Review of Systems: CONST: Denies fever EYES: Denies blurry vision ENT: Denies nasal congestion C/V: Denies Chest pain RESP: Denies shortness of breath GI: Denies abdominal pain : Denies dysuria SKIN: Denies rash. MSK: Denies joint pain. NEURO: Denies headache ROS Other: All systems not noted in ROS Statement are negative. Past Medical History Past Medical History: Coronary Artery Disease (CAD), Heart Failure, CVA/TIA, Diabetes Mellitus, Hyperlipidemia, Hypertension, Myocardial Infarction ([place]), Syncope, Thyroid Disorder Additional Past Medical History / Comment(s): CT of the brain in September 2017 demonstrated old right lacunar infarct Last Myocardial Infarction Date:: 12/06/2018 History of Any Multi-Drug Resistant Organisms: None Reported Past Surgical History: Coronary Bypass/CABG, Orthopedic Surgery Additional Past Surgical History / Comment(s): right hip Past Anesthesia/Blood Transfusion Reactions: No Reported Reaction Past Psychological History: Bipolar, PTSD Smoking Status: Never smoker Past Alcohol Use History: None Reported Past Drug Use History: None Reported - Past Family History Father Family Medical History: No Reported History Mother Family Medical History: No Reported History General Exam - General Exam Comments Initial Comments: General: Appears in no acute distress. HEAD: Normal with no signs of head trauma. EYES: PERRLA, EOMI, conjunctiva normal, no discharge. ENT: Hearing grossly intact, normal oropharynx. RESPIRATORY: Clear breath sounds bilaterally. No wheezes, rales, or rhonchi. C/V: Regular rate and rhythm. S1 and S2 auscultated, no edema, peripheral pulses 2+ and intact throughout ABD: Abd is soft, nontender, nondistended EXT: Normal range of motion, no obvious deformity SKIN: Old abrasions on the patient's forehead. NEURO: Alert and oriented 4. No focal deficits. Limitations: no limitations Course Vital Signs 08/16/23 08/16/23 08/16/23 21:40 22:38 23:36 Temperature 98.2 F Pulse Rate 95 86 85 Respiratory 20 18 18 Rate Blood Pressure 122/84 142/64 144/72 O2 Sat by Pulse 97 98 96 Oximetry 08/17/23 00:02 Temperature 98.4 F Pulse Rate 85 Respiratory 18 Rate Blood Pressure 135/70 O2 Sat by Pulse 96 Oximetry Medical Decision Making - Medical Decision Making Was pt. sent in by a medical professional or institution (ROMINA Guy, SERVICE WRITER ADVISOR, urgent care, hospital, or longterm...) When possible be specific @ -No Did you speak to anyone other than the patient for history (EMS, parent, family, police, friend...)? What history was obtained from this source @ -No Did you review nursing and triage notes (agree or disagree)? Why? @ -I reviewed and agree with nursing and triage notes Were old charts reviewed (outside hosp., previous admission, EMS record, old EKG, old radiological studies, urgent care reports/EKG's, longterm records)? Report findings @ -No old charts were reviewed Differential Diagnosis (chest pain, altered mental status, abdominal pain women, abdominal pain men, vaginal bleeding, weakness, fever, dyspnea, syncope, headache, dizziness, GI bleed, back pain, seizure, CVA, palpatations, mental health, musculoskeletal)? @ -Hyperglycemia be a radicular diabetic ketoacidosis, electrolyte abnormal ities. This list is not all-inclusive. EKG interpreted by me (3pts min.). @ -None done X-rays interpreted by me (1pt min.). @ -None done CT interpreted by me (1pt min.). @ -None done U/S interpreted by me (1pt. min.). @ -None done What testing was considered but not performed or refused? (CT, X-rays, U/S, labs)? Why? @ -None What meds were considered but not given or refused? Why? @ -None Did you discuss the management of the patient with other professionals (professionals i.e. ROMINA Guy, SERVICE WRITER ADVISOR, lab, RT, psych nurse, social worker delinquency prevention, certified master safecracker, teacher, information systems security officer, rifle case repairer)? Give summary @ -No Was smoking cessation discussed for >3mins.? @ -No Was critical care preformed (if so, how long)? @ -No Were there social determinants of health that impacted care today? How? (Homelessness, low income, unemployed, alcoholism, drug addiction, transportation, low edu. Level, literacy, decrease access to med. care, custodial, rehab)? @ -No Was there de-escalation of care discussed even if they declined (Discuss DNR or withdrawal of care, Hospice)? DNR status @ -No What co-morbidities impacted this encounter? (DM, HTN, Smoking, COPD, CAD, Cancer, CVA, ARF, Chemo, Hep., AIDS, mental health diagnosis, sleep apnea, morbid obesity)? @ -None Was patient admitted / discharged? Hospital course, mention meds given and route, prescriptions, significant lab abnormalities, going to OR and other pertinent info. @ -Based on patient's presentation and physical exam, presents with isolated hyperglycemia. Patient's blood sugars in the 300s. We will evaluate for possible early DKA. He'll be given a 1 L fluid bolus. Patient was in agreement this plan. Patient's blood sugar is improved without any insulin to 277. Basic labs reveal mild AKA and patient was given a 1 L fluid bolus. No other acute findings on labs. I discussed results of the patient. No evidence of DKA. Discussed this with the patient. He would like to go home. I believe this is reasonable. Strict return precautions discussed. I instructed the patient to follow up with their PCP in the next 1-3 days. I explained that the patient should return to the emergency department if they experience any worsening symptoms. Strict return precautions were discussed with the patient. The patient expressed understanding of these instructions. I answered all questions that the patient had. The patient was discharged home in good condition with their prescriptions and follow up information. Undiagnosed new problem with uncertain prognosis? @ -No Drug Therapy requiring intensive monitoring for toxicity (Heparin, Nitro, Insulin, Cardizem)? @ -No Were any procedures done? @ -No Diagnosis/symptom? @ -Hyperglycemia, PRANAV, dehydration Acute, or Chronic, or Acute on Chronic? @ -Acute Uncomplicated (without systemic symptoms) or Complicated (systemic symptoms)? @ -Uncomplicated Side effects of treatment? @ -No Exacerbation, Progression, or Severe Exacerbation? @ -No Poses a threat to life or bodily function? How? (Chest pain, USA, [place], pneumonia, PE, COPD, DKA, ARF, appy, cholecystitis, CVA, Diverticulitis, Homicidal, Suicidal, threat to staff... and all critical care pts) @ -No - Lab Data Result diagrams: 08/16/23 22:59 08/16/23 22:59 Lab Results 08/16/23 08/16/23 08/16/23 Range/Units 21:44 22:59 22:59 WBC 11.5 H (3.8-10.6) k/uL RBC 4.28 L (4.30-5.90) m/uL Hgb 12.2 L (13.0-17.5) gm/dL Hct 37.3 L (39.0-53.0) % MCV 87.1 (80.0-100.0) fL MCH 28.5 (25.0-35.0) pg MCHC 32.7 (31.0-37.0) g/dL RDW 14.0 (11.5-15.5) % Plt Count 473 H (150-450) k/uL MPV 6.7 Neutrophils % 79 % Lymphocytes % 10 % Monocytes % 8 % Eosinophils % 1 % Basophils % 0 % Neutrophils # 9.1 H (1.3-7.7) k/uL Lymphocytes # 1.1 (1.0-4.8) k/uL Monocytes # 1.0 (0-1.0) k/uL Eosinophils # 0.1 (0-0.7) k/uL Basophils # 0.0 (0-0.2) k/uL Sodium 136 L (137-145) mmol/L Potassium 4.5 (3.5-5.1) mmol/L Chloride 102 (98-107) mmol/L Carbon Dioxide 19 L (22-30) mmol/L Anion Gap 15 mmol/L BUN 35 H (9-20) mg/dL Creatinine 1.58 H (0.66-1.25) mg/dL Est GFR (CKD-EPI)AfAm 51 (>60 ml/min/1.73 sqM) Est GFR (CKD-EPI)NonAf 44 (>60 ml/min/1.73 sqM) Glucose 280 H (74-99) mg/dL POC Glucose (mg/dL) 338 H (70-110) mg/dL POC Glu Program Director Scouting ID Nomi Pierce Calcium 9.6 (8.4-10.2) mg/dL 08/16/23 Range/Units 22:59 WBC (3.8-10.6) k/uL RBC (4.30-5.90) m/uL Hgb (13.0-17.5) gm/dL Hct (39.0-53.0) % MCV (80.0-100.0) fL MCH (25.0-35.0) pg MCHC (31.0-37.0) g/dL RDW (11.5-15.5) % Plt Count (150-450) k/uL MPV Neutrophils % % Lymphocytes % % Monocytes % % Eosinophils % % Basophils % % Neutrophils # (1.3-7.7) k/uL Lymphocytes # (1.0-4.8) k/uL Monocytes # (0-1.0) k/uL Eosinophils # (0-0.7) k/uL Basophils # (0-0.2) k/uL Sodium (137-145) mmol/L Potassium (3.5-5.1) mmol/L Chloride (98-107) mmol/L Carbon Dioxide (22-30) mmol/L Anion Gap mmol/L BUN (9-20) mg/dL Creatinine (0.66-1.25) mg/dL Est GFR (CKD-EPI)AfAm (>60 ml/min/1.73 sqM) Est GFR (CKD-EPI)NonAf (>60 ml/min/1.73 sqM) Glucose (74-99) mg/dL POC Glucose (mg/dL) 277 H (70-110) mg/dL POC Glu Program Director Scouting ID Blanca Jacob Calcium (8.4-10.2) mg/dL Disposition Clinical Impression: Hyperglycemia, Dehydration, PRANAV (acute kidney injury) Disposition: HOME SELF-CARE Condition: Good Instructions (If sedation given, give patient instructions): Diabetic Hyperglycemia (ED) Is patient prescribed a controlled substance at d/c from ED?: No Referrals: Sol Cerda MD [Primary Care Provider] - 1-2 days Time of Disposition: 23:48
[2023-08-17 00:09] VITALS: BP 135/70; TEMP 98.4
== END 2023-08-17 00:17 | disposition home or self-care (01) ==
LOC: EC 20:24
DX: E11.65 Type 2 diabetes mellitus with hyperglycemia (principal); E86.0 Dehydration; N17.9 Acute kidney failure, unspecified; I11.0 Hypertensive heart disease with heart failure; I50.9 Heart failure, unspecified; I25.2 Old myocardial infarction; I25.10 Atherosclerotic heart disease of native coronary artery without angina pectoris; E78.5 Hyperlipidemia, unspecified; E07.9 Disorder of thyroid, unspecified; Z79.4 Long term (current) use of insulin; Z79.84 Long term (current) use of oral hypoglycemic drugs; Z79.890 Hormone replacement therapy; Z79.899 Other long term (current) drug therapy; Z95.1 Presence of aortocoronary bypass graft; Z86.73 Personal history of transient ischemic attack (TIA), and cerebral infarction without residual deficits
CPT/HCPCS: 36415; 80048; 85025; 96360; 99284

== ENCOUNTER 2023-08-22 14:47 | Emergency (ER) | payer MEDICARE, OTHER ==
--- NOTE | 2023-08-22 15:12 | ED ---
General Adult HPI - General Source: patient, EMS, RN notes reviewed Mode of arrival: EMS Limitations: no limitations <Roberto Palacios - Last Filed: 08/22/23 15:11> <Giovanni Valdes - Last Filed: 08/25/23 01:05> - General Stated complaint: Back pain. Time Seen by Provider: 08/22/23 15:11 - History of Present Illness Initial comments: 72-year-old male presents emergency department via EMS chief complaint of generalized weakness. Patient has went of back pain. Patient reportedly was seen at [facility] for hyperglycemia he was discharged. Patient complained that he felt the kids discharged to see him. (Roberto Palacios) 72-year-old male presenting with chief complaint of lower back pain. Patient was just discharged from the hospital 3 hours ago and called the ambulance due to lower back pain "because he did not want to wait for someone to drive him". Bowel or bladder control or saddle paresthesia. He has not taken anything for his back pain. No fever, chills, nausea, vomiting, dysuria, hematuria. No injury or trauma. (Giovanni Valdes) - Related Data Home Medications Medication Instructions Recorded Confirmed metFORMIN HCL 500 mg PO TID 02/06/19 11/06/22 Atorvastatin [Lipitor] 40 mg PO DAILY 10/09/19 11/06/22 INSULIN ASPART (NovoLOG) [NovoLOG 15 unit SQ AC-TID 10/09/19 11/06/22 (formulary)] fluvoxaMINE [Luvox] 50 mg PO DAILY 10/09/19 11/06/22 Levothyroxine Sodium [Synthroid] 100 mcg PO DAILY 11/06/22 11/06/22 Semaglutide [Ozempic] 0.25 mg SQ Q7D 11/06/22 11/06/22 Previous Rx's Medication Instructions Recorded Amoxic-Pot Clav 875-125Mg 1 tab PO BID 3 Days #6 tab 11/09/22 [Augmentin 875-125] Clopidogrel [Plavix] 75 mg PO DAILY #30 tab 11/09/22 Cyanocobalamin [Vitamin B-12] 1,000 mcg PO DAILY #30 tablet 11/09/22 Folic Acid 1 mg PO DAILY #30 tab 11/09/22 Insulin Glargine,Hum.rec.anlog 37 units SQ HS #0 11/09/22 [Touivano Solostar] Metoprolol Tartrate [Lopressor] 25 mg PO BID tab 11/09/22 Pantoprazole Sodium [Protonix] 20 mg PO AC-BRKFST #30 tab 11/09/22 amLODIPine [Norvasc] 10 mg PO DAILY #30 tab 11/09/22 Allergies Allergy/AdvReac Type Severity Reaction Status Date / Time No Known Allergies Allergy Verified 08/16/23 21:49 Review of Systems ROS Other: All systems not noted in ROS Statement are negative. <Roberto Palacios - Last Filed: 08/22/23 15:11> ROS Other: All systems not noted in ROS Statement are negative. <Giovanni Valdes - Last Filed: 08/25/23 01:05> ROS Statement: Those systems with pertinent positive or pertinent negative responses have been documented in the HPI. Past Medical History Past Medical History: Coronary Artery Disease (CAD), Heart Failure, CVA/TIA, Diabetes Mellitus, Hyperlipidemia, Hypertension, Myocardial Infarction ([place]), Syncope, Thyroid Disorder Additional Past Medical History / Comment(s): CT of the brain in September 2017 demonstrated old right lacunar infarct Last Myocardial Infarction Date:: 12/06/2018 History of Any Multi-Drug Resistant Organisms: None Reported Past Surgical History: Coronary Bypass/CABG, Orthopedic Surgery Additional Past Surgical History / Comment(s): right hip Past Anesthesia/Blood Transfusion Reactions: No Reported Reaction Past Psychological History: Bipolar, PTSD Smoking Status: Never smoker Past Alcohol Use History: None Reported Past Drug Use History: None Reported - Past Family History Father Family Medical History: No Reported History Mother Family Medical History: No Reported History <Roberto Palacios - Last Filed: 08/22/23 15:11> General Exam <Roberto Palacios - Last Filed: 08/22/23 15:11> General appearance: alert, in no apparent distress Head exam: Present: atraumatic, normocephalic, normal inspection Eye exam: Present: normal appearance, EOMI Neck exam: Present: normal inspection, full ROM Respiratory exam: Absent: respiratory distress Back exam: Present: normal inspection Neurological exam: Present: alert, oriented X3, CN II-XII intact Psychiatric exam: Present: normal affect, normal mood Skin exam: Present: warm, dry, intact, normal color. Absent: rash <Giovanni Valdes - Last Filed: 08/25/23 01:05> - General Exam Comments Initial Comments: Visual Physical Exam Vital signs reviewed General: Well-appearing, nontoxic, no acute distress. Head: Normocephalic, atraumatic Eyes: PERRLA, EOMI ENT: Airway patent Chest: Nonlabored breathing Skin: No visual rash, normal skin tone Neuro: Alert and oriented 3 Musculoskeletal: No gross abnormalities (Roberto Palacios) Course Vital Signs 08/22/23 15:13 Temperature 98 F Pulse Rate 70 Respiratory 16 Rate Blood Pressure 136/62 O2 Sat by Pulse 98 Oximetry Medical Decision Making <Roberto Palacios - Last Filed: 08/22/23 15:11> <Giovanni Valdes - Last Filed: 08/25/23 01:05> - Medical Decision Making I performed a quick note portion of this chart signed Roberto Palacios PA-C (Roberto Palacios) Was pt. sent in by a medical professional or institution (ROMINA Guy, SOUND ASSISTANT, urgent care, hospital, or jail...) When possible be specific @ -[No] Did you speak to anyone other than the patient for history (EMS, parent, family, police, friend...)? What history was obtained from this source @ -[No] Did you review nursing and triage notes (agree or disagree)? Why? @ -[I reviewed and agree with nursing and triage notes] Were old charts reviewed (outside hosp., previous admission, EMS record, old EKG, old radiological studies, urgent care reports/EKG's, jail records)? Report findings @ -[No old charts were reviewed] Differential Diagnosis (chest pain, altered mental status, abdominal pain women, abdominal pain men, vaginal bleeding, weakness, fever, dyspnea, syncope, headache, dizziness, GI bleed, back pain, seizure, CVA, palpatations, mental health, musculoskeletal)? @ - [facility] Differential Back Pain: Strain, zoster, cauda equina syndrome, epidural abscess, vertebral osteomyelitis, discitis, fracture, subluxation, disc herniation, DJD, spinal stenosis, dissection, AAA, pancreatitis, peptic ulcer disease, pyelonephritis, kidney stone… this is not meant to be an all-inclusive list. EKG interpreted by me (3pts min.). @ -[As above] X-rays interpreted by me (1pt min.). @ -[None done] CT interpreted by me (1pt min.). @ -[None done] U/S interpreted by me (1pt. min.). @ -[None done] What testing was considered but not performed or refused? (CT, X-rays, U/S, labs)? Why? @ -[None] What meds were considered but not given or refused? Why? @ -[None] Did you discuss the management of the patient with other professionals (professionals i.e. DrDennis, PA, SOUND ASSISTANT, lab, RT, psych nurse, social worker aide, label press operator, teacher, community liaison officer, rn case management)? Give summary @ -[No] Was smoking cessation discussed for >3mins.? @ -[No] Was critical care preformed (if so, how long)? @ -[No] Were there social determinants of health that impacted care today? How? (Homelessness, low income, unemployed, alcoholism, drug addiction, transportation, low edu. Level, literacy, decrease access to med. care, residential, rehab)? @ -[No] Was there de-escalation of care discussed even if they declined (Discuss DNR or withdrawal of care, Hospice)? DNR status @ -[No] What co-morbidities impacted this encounter? (DM, HTN, Smoking, COPD, CAD, C ancer, CVA, ARF, Chemo, Hep., AIDS, mental health diagnosis, sleep apnea, morbid obesity)? @ -[None] Was patient admitted / discharged? Hospital course, mention meds given and route, prescriptions, significant lab abnormalities, going to OR and other pertinent info. @ -72-year-old male presented chief complaint of low back pain. No red flag symptoms. No injury or trauma. He was recently discharged from another facility. Physical exam is conducted. Patient is treated with analgesia and discharged home. Follow-up with PCP. Report back to ER with any new or worsening symptoms. Discussed return parameters and answered all questions. Patient conveyed verbal understanding and agreed to the plan. I discussed this case in detail with my attending Dr. Undiagnosed new problem with uncertain prognosis? @ -[No] Drug Therapy requiring intensive monitoring for toxicity (Heparin, Nitro, Insulin, Cardizem)? @ -[No] Were any procedures done? @ -[No] Diagnosis/symptom? @ -Low back pain Acute, or Chronic, or Acute on Chronic? @ -Acute Uncomplicated (without systemic symptoms) or Complicated (systemic symptoms)? @ -Uncomplicated Side effects of treatment? @ -[No] Exacerbation, Progression, or Severe Exacerbation? @ -[No] Poses a threat to life or bodily function? How? (Chest pain, [place], [place], pneumonia, PE, COPD, DKA, ARF, appy, cholecystitis, CVA, Diverticulitis, Homicidal, Suicidal, threat to staff... and all critical care pts) @ -[No] (Giovanni Valdes) Disposition <Roberto Palacios - Last Filed: 08/22/23 15:11> Is patient prescribed a controlled substance at d/c from ED?: No Time of Disposition: 17:03 <Giovanni Valdes - Last Filed: 08/25/23 01:05> Clinical Impression: Lumbar back pain Disposition: HOME SELF-CARE Condition: Good Instructions (If sedation given, give patient instructions): Acute Low Back Pain (ED) Additional Instructions: Follow-up with PCP. Report back to ER with any new or worsening symptoms. Referrals: Sol Cerda MD [Primary Care Provider] - 1-2 days
[2023-08-22 15:17] VITALS: BP 136/62; PULSE 70; RESP 16; TEMP 98
[2023-08-22] MEDS ORDERED: HYDROcodone/APAP 7.5-325MG 1 EACH TAB PO ONE (17:01)
[2023-08-22] MEDS ORDERED: LIDOCAINE 5% PATCH TOPICAL SCH (17:15)
== END 2023-08-22 17:44 | disposition home or self-care (01) ==
LOC: EC 14:47
DX: M54.50 Low back pain, unspecified (principal); E11.65 Type 2 diabetes mellitus with hyperglycemia; E78.5 Hyperlipidemia, unspecified; I11.0 Hypertensive heart disease with heart failure; I50.9 Heart failure, unspecified; I25.10 Atherosclerotic heart disease of native coronary artery without angina pectoris; F31.9 Bipolar disorder, unspecified; I25.2 Old myocardial infarction; Z95.1 Presence of aortocoronary bypass graft; Z79.84 Long term (current) use of oral hypoglycemic drugs; Z79.4 Long term (current) use of insulin; Z79.899 Other long term (current) drug therapy
CPT/HCPCS: 99283

== ENCOUNTER 2023-09-16 07:21 | Observation (INO) | payer MEDICARE, OTHER ==
[2023-09-16] MEDS ORDERED: DEXTROSE 50% SYRINGE 50 ML IVP PRN ×2 (07:29)
[2023-09-16] MEDS ORDERED: INSULIN REGULAR BOLUS (FROM DRIP BAG) IV ONE (07:29)
[2023-09-16] MEDS ORDERED: Potassium Replacement Protocol 1 EACH MISC MISCELLANE PRN (07:29)
[2023-09-16] MEDS ORDERED: SODIUM CHLORIDE 0.9% 1,000 ML IV ONE (07:29)
[2023-09-16] MEDS ORDERED: Magnesium Replacement Protocol 1 EACH MISC MISCELLANE PRN (07:29)
[2023-09-16 07:42] LABS: Glucose,Whole Blood >600 mg/dL (70-110)
[2023-09-16] MEDS ORDERED: INSULIN REGULAR 100 UNIT in SODIUM CHLORIDE 0.9% 100 ML IV SCH (07:45)
[2023-09-16] MEDS: SODIUM CHLORIDE 0.9% 1,000 ML IV SCH ×4 (07:48→21:06)
--- NOTE | 2023-09-16 07:52 | ED ---
General Adult HPI - General Chief complaint: Recheck/Abnormal Lab/Rx Stated complaint: Hyperglycemia Time Seen by Provider: 09/16/23 07:30 Source: patient, RN notes reviewed, old records reviewed Mode of arrival: EMS Limitations: no limitations - History of Present Illness Initial comments: This is a 72-year-old male who presents emergency department with past medical history significant for diabetes. Patient has no complaints. Patient states he woke up this morning sugar was over 600 so he came to the emergency department. Patient denies fever chills. Patient states he does have a slight cough. Patient denies any chest pain difficulty breathing or shortness of breath per patient denies any abdominal pain patient denies nausea vomiting diarrhea. Patient denies any patient denies numbness weakness. Patient states she's being treated with Levaquin for urinary tract infection. - Related Data Home Medications Medication Instructions Recorded Confirmed metFORMIN HCL 500 mg PO TID 02/06/19 11/06/22 Atorvastatin [Lipitor] 40 mg PO DAILY 10/09/19 11/06/22 INSULIN ASPART (NovoLOG) [NovoLOG 15 unit SQ AC-TID 10/09/19 11/06/22 (formulary)] fluvoxaMINE [Luvox] 50 mg PO DAILY 10/09/19 11/06/22 Levothyroxine Sodium [Synthroid] 100 mcg PO DAILY 11/06/22 11/06/22 Semaglutide [Ozempic] 0.25 mg SQ Q7D 11/06/22 11/06/22 Previous Rx's Medication Instructions Recorded Amoxic-Pot Clav 875-125Mg 1 tab PO BID 3 Days #6 tab 11/09/22 [Augmentin 875-125] Clopidogrel [Plavix] 75 mg PO DAILY #30 tab 11/09/22 Cyanocobalamin [Vitamin B-12] 1,000 mcg PO DAILY #30 tablet 11/09/22 Folic Acid 1 mg PO DAILY #30 tab 11/09/22 Insulin Glargine,Hum.rec.anlog 37 units SQ HS #0 11/09/22 [Bayulisa Valadezostedgar] Metoprolol Tartrate [Lopressor] 25 mg PO BID tab 11/09/22 Pantoprazole Sodium [Protonix] 20 mg PO AC-BRKFST #30 tab 11/09/22 amLODIPine [Norvasc] 10 mg PO DAILY #30 tab 11/09/22 Ondansetron Odt [Zofran Odt] 4 mg PO Q8HR PRN #10 tab 09/11/23 Allergies Allergy/AdvReac Type Severity Reaction Status Date / Time No Known Allergies Allergy Verified 08/16/23 21:49 Review of Systems ROS Statement: Those systems with pertinent positive or pertinent negative responses have been documented in the HPI. ROS Other: All systems not noted in ROS Statement are negative. Past Medical History Past Medical History: Coronary Artery Disease (CAD), Heart Failure, CVA/TIA, Diabetes Mellitus, Hyperlipidemia, Hypertension, Myocardial Infarction ([place]), Syncope, Thyroid Disorder Additional Past Medical History / Comment(s): CT of the brain in September 2017 demonstrated old right lacunar infarct Last Myocardial Infarction Date:: 12/06/2018 History of Any Multi-Drug Resistant Organisms: None Reported Past Surgical History: Coronary Bypass/CABG, Orthopedic Surgery Additional Past Surgical History / Comment(s): right hip Past Anesthesia/Blood Transfusion Reactions: No Reported Reaction Past Psychological History: Bipolar, PTSD Smoking Status: Never smoker Past Alcohol Use History: None Reported Past Drug Use History: None Reported - Past Family History Father Family Medical History: No Reported History Mother Family Medical History: No Reported History General Exam - General Exam Comments Initial Comments: GENERAL: Patient is well-developed and well-nourished. Patient is nontoxic and well- hydrated and is in no acute distress. ENT: Neck is soft and supple. No significant lymphadenopathy is noted. Oropharynx is clear. Moist mucous membranes. Neck has full range of motion without eliciting any pain. EYES: The sclera were anicteric and conjunctiva were pink and moist. Extraocular movements were intact and pupils were equal round and reactive to light. Eyelids were unremarkable. PULMONARY: Unlabored respirations. Good breath sounds bilaterally. No audible rales rhonchi or wheezing was noted. CARDIOVASCULAR: There is a regular rate and rhythm without any murmurs gallops or rubs. ABDOMEN: Soft and nontender with normal bowel sounds. SKIN: Skin is clear with no lesions or rashes and otherwise unremarkable. NEUROLOGIC: Patient is alert and oriented x3. Cranial nerves II through XII are grossly intact. Motor and sensory are also intact. Normal speech, volume and content. Symmetrical smile. MUSCULOSKELETAL: Normal extremities with adequate strength and full range of motion. LYMPHATICS: No significant lymphadenopathy is noted PSYCHIATRIC: Normal psychiatric evaluation. Limitations: no limitations Course Vital Signs 09/16/23 09/16/23 09/16/23 07:29 07:32 08:20 Temperature 97.9 F Pulse Rate 98 93 98 Respiratory 28 H 28 H 28 H Rate Blood Pressure 151/77 151/77 145/64 O2 Sat by Pulse 98 92 L 95 Oximetry Medical Decision Making - Medical Decision Making EKG is interpreted by myself. EKG shows a sinus rhythm at 92 bpm VA interval is 280 QRS is 94 QT interval 354 and QTC is 41 per patient's EKG shows no ST segment elevation or depression. Was pt. sent in by a medical professional or institution (, ROMINA, CRUSHER LOADER EQUIPMENT OPERATOR, urgent care, hospital, or snf...) When possible be specific @ -No Did you speak to anyone other than the patient for history (EMS, parent, family, police, friend...)? What history was obtained from this source @ -No Did you review nursing and triage notes (agree or disagree)? Why? @ -I reviewed and agree with nursing and triage notes Were old charts reviewed (outside hosp., previous admission, EMS record, old EKG, old radiological studies, urgent care reports/EKG's, snf records)? Report findings @ -I reviewed prior charts and prior lab work on this patient Differential Diagnosis (chest pain, altered mental status, abdominal pain women, abdominal pain men, vaginal bleeding, weakness, fever, dyspnea, syncope, headache, dizziness, GI bleed, back pain, seizure, CVA, palpatations, mental health, musculoskeletal)? @ -HHS, DKA, hyperglycemia EKG interpreted by me (3pts min.). @ -As above X-rays interpreted by me (1pt min.). @ -None done CT interpreted by me (1pt min.). @ -None done U/S interpreted by me (1pt. min.). @ -None done What testing was considered but not performed or refused? (CT, X-rays, U/S, labs)? Why? @ -None What meds were considered but not given or refused? Why? @ -None Did you discuss the management of the patient with other professionals (professionals i.e. , ROMINA, CRUSHER LOADER EQUIPMENT OPERATOR, lab, RT, psych nurse, rn social work, lease administrator, teacher, credit risk review officer, manager case)? Give summary @ -I spoke with Dr. Bradford Felder agreed to admit the patient Was smoking cessation discussed for >3mins.? @ -No Was critical care preformed (if so, how long)? @ -No Were there social determinants of health that impacted care today? How? (Homelessness, low income, unemployed, alcoholism, drug addiction, transportation, low edu. Level, literacy, decrease access to med. care, prison, rehab)? @ -No Was there de-escalation of care discussed even if they declined (Discuss DNR or withdrawal of care, Hospice)? DNR status @ -No What co-morbidities impacted this encounter? (DM, HTN, Smoking, COPD, CAD, Cancer, CVA, ARF, Chemo, Hep., AIDS, mental health diagnosis, sleep apnea, morbid obesity)? @ -None Was patient admitted / discharged? Hospital course, mention meds given and route, prescriptions, significant lab abnormalities, going to OR and other pertinent info. @ -Patient was started on an insulin drip after he received a bolus of insulin. Patient also received significant IV fluids. Patient was feeling considerably better sugar came down. I spoke with Dr. Felder agreed to admit the patient to be able to regulate the patient's blood sugar. Undiagnosed new problem with uncertain prognosis? @ -No Drug Therapy requiring intensive monitoring for toxicity (Heparin, Nitro, Insulin, Cardizem)? @ -No Were any procedures done? @ -No Diagnosis/symptom? @ -Hyperglycemia Acute, or Chronic, or Acute on Chronic? @ -Acute Uncomplicated (without systemic symptoms) or Complicated (systemic symptoms)? @ -Complicated Side effects of treatment? @ -No Exacerbation, Progression, or Severe Exacerbation? @ -No Poses a threat to life or bodily function? How? (Chest pain, [place], [place], pneumonia, PE, COPD, DKA, ARF, appy, cholecystitis, CVA, Diverticulitis, Homicidal, Suicida l, threat to staff... and all critical care pts) @ -Yes this could lead to severe dehydration and DKA and possible and oriented dysfunction - Lab Data Result diagrams: 09/16/23 07:34 09/16/23 07:34 Lab Results 09/16/23 09/16/23 09/16/23 Range/Units 07:34 07:34 07:34 WBC 7.3 (3.8-10.6) k/uL RBC 3.49 L (4.30-5.90) m/uL Hgb 10.2 L (13.0-17.5) gm/dL Hct 32.1 L (39.0-53.0) % MCV 92.0 (80.0-100.0) fL MCH 29.3 (25.0-35.0) pg MCHC 31.8 (31.0-37.0) g/dL RDW 14.0 (11.5-15.5) % Plt Count 501 H (150-450) k/uL MPV 7.5 Neutrophils % 74 % Lymphocytes % 17 % Monocytes % 7 % Eosinophils % 1 % Basophils % 0 % Neutrophils # 5.4 (1.3-7.7) k/uL Lymphocytes # 1.2 (1.0-4.8) k/uL Monocytes # 0.5 (0-1.0) k/uL Eosinophils # 0.1 (0-0.7) k/uL Basophils # 0.0 (0-0.2) k/uL Hypochromasia Slight VBG pH 7.36 (7.31-7.41) VBG pCO2 49 (37-51) mmHg VBG HCO3 28 (24-28) mmol/L Sodium 131 L (137-145) mmol/L Potassium 5.1 (3.5-5.1) mmol/L Chloride 95 L (98-107) mmol/L Carbon Dioxide 25 (22-30) mmol/L Anion Gap 11 mmol/L BUN 27 H (9-20) mg/dL Creatinine 1.13 (0.66-1.25) mg/dL Est GFR (CKD-EPI)AfAm 76 (>60 ml/min/1.73 sqM) Est GFR (CKD-EPI)NonAf 66 (>60 ml/min/1.73 sqM) Glucose 772 H* (74-99) mg/dL POC Glucose (mg/dL) (70-110) mg/dL POC Glu Rotary Operator ID Acetone, Qual Negative (Negative) 09/16/23 09/16/23 09/16/23 Range/Units 07:37 08:19 09:32 WBC (3.8-10.6) k/uL RBC (4.30-5.90) m/uL Hgb (13.0-17.5) gm/dL Hct (39.0-53.0) % MCV (80.0-100.0) fL MCH (25.0-35.0) pg MCHC (31.0-37.0) g/dL RDW (11.5-15.5) % Plt Count (150-450) k/uL MPV Neutrophils % % Lymphocytes % % Monocytes % % Eosinophils % % Basophils % % Neutrophils # (1.3-7.7) k/uL Lymphocytes # (1.0-4.8) k/uL Monocytes # (0-1.0) k/uL Eosinophils # (0-0.7) k/uL Basophils # (0-0.2) k/uL Hypochromasia VBG pH (7.31-7.41) VBG pCO2 (37-51) mmHg VBG HCO3 (24-28) mmol/L Sodium (137-145) mmol/L Potassium (3.5-5.1) mmol/L Chloride (98-107) mmol/L Carbon Dioxide (22-30) mmol/L Anion Gap mmol/L BUN (9-20) mg/dL Creatinine (0.66-1.25) mg/dL Est GFR (CKD-EPI)AfAm (>60 ml/min/1.73 sqM) Est GFR (CKD-EPI)NonAf (>60 ml/min/1.73 sqM) Glucose (74-99) mg/dL POC Glucose (mg/dL) >600 H >600 H 475 H (70-110) mg/dL POC Glu Rotary Operator ID Noam, Jacob Young, Ward Young, Ward Acetone, Qual (Negative) 09/16/23 Range/Units 10:09 WBC (3.8-10.6) k/uL RBC (4.30-5.90) m/uL Hgb (13.0-17.5) gm/dL Hct (39.0-53.0) % MCV (80.0-100.0) fL MCH (25.0-35.0) pg MCHC (31.0-37.0) g/dL RDW (11.5-15.5) % Plt Count (150-450) k/uL MPV Neutrophils % % Lymphocytes % % Monocytes % % Eosinophils % % Basophils % % Neutrophils # (1.3-7.7) k/uL Lymphocytes # (1.0-4.8) k/uL Monocytes # (0-1.0) k/uL Eosinophils # (0-0.7) k/uL Basophils # (0-0.2) k/uL Hypochromasia VBG pH (7.31-7.41) VBG pCO2 (37-51) mmHg VBG HCO3 (24-28) mmol/L Sodium (137-145) mmol/L Potassium (3.5-5.1) mmol/L Chloride (98-107) mmol/L Carbon Dioxide (22-30) mmol/L Anion Gap mmol/L BUN (9-20) mg/dL Creatinine (0.66-1.25) mg/dL Est GFR (CKD-EPI)AfAm (>60 ml/min/1.73 sqM) Est GFR (CKD-EPI)NonAf (>60 ml/min/1.73 sqM) Glucose (74-99) mg/dL POC Glucose (mg/dL) 314 H (70-110) mg/dL POC Glu Rotary Operator ID Sha Bright, Qual (Negative) Disposition Clinical Impression: Acute hyperglycemia Disposition: ADMITTED IP TO THIS HOSP Referrals: Sol Cerda MD [Primary Care Provider] - 1-2 days Time of Disposition: 11:29
[2023-09-16 07:56] LABS: Basophils % (A) 0 %; Eosinophils # (A) 0.1 k/uL (0-0.7); Eosinophils % (A) 1 %; HCT 32.1 % (39.0-53.0); HGB 10.2 gm/dL (13.0-17.5); Hypochromasia Slight; Lymphocytes # (A) 1.2 k/uL (1.0-4.8); Lymphocytes % (A) 17 %; MCH 29.3 pg (25.0-35.0); MCHC 31.8 g/dL (31.0-37.0); Mean Platelet Volume 7.5; Monocytes # (A) 0.5 k/uL (0-1.0); Monocytes % (A) 7 %; Neutrophils # (A) 5.4 k/uL (1.3-7.7); Neutrophils % (A) 74 %; Platelet Count 501 k/uL (150-450); RBC 3.49 m/uL (4.30-5.90); WBC 7.3 k/uL (3.8-10.6)
[2023-09-16 08:07] LABS: African American GFR (CKD) 76 (>60 ml/min/1.73 sqM); Anion Gap 11 mmol/L; Blood Urea Nitrogen 27 mg/dL (9-20); Carbon Dioxide 25 mmol/L (22-30); Chloride 95 mmol/L (98-107); Non-African American GFR(CKD) 66 (>60 ml/min/1.73 sqM); Potassium 5.1 mmol/L (3.5-5.1); Sodium 131 mmol/L (137-145)
[2023-09-16 08:22] LABS: Glucose,Whole Blood >600 mg/dL (70-110)
[2023-09-16 08:36] LABS: VBG PH 7.36 (7.31-7.41)
[2023-09-16 08:48] LABS: Glucose 772 mg/dL (74-99)
[2023-09-16 09:34] LABS: Glucose,Whole Blood 475 mg/dL (70-110)
[2023-09-16 10:11] LABS: Glucose,Whole Blood 314 mg/dL (70-110)
[2023-09-16] MEDS ORDERED: ACETAMINOPHEN TAB 325 MG TAB PO PRN (10:22)
[2023-09-16] MEDS ORDERED: CALCIUM CARBONATE 500 MG CHEWABLE PO PRN (10:22)
[2023-09-16] MEDS ORDERED: NALOXONE 0.4 MG/ML 1 ML VIAL IV PRN (10:22)
[2023-09-16] MEDS ORDERED: ONDANSETRON 4 MG/2 ML VIAL IVP PRN (10:22)
[2023-09-16] MEDS ORDERED: MAG HYDROX/AL HYDROX/SIMETH 30 ML CUP PO PRN (10:22)
[2023-09-16] MEDS: INSULIN DETEMIR (LEVEMIR) 100 UNIT/ML SYR SQ SCH ×3 (11:00→21:05)
[2023-09-16 12:31] LABS: African American GFR (CKD) >90 (>60 ml/min/1.73 sqM); Anion Gap 9 mmol/L; Blood Urea Nitrogen 24 mg/dL (9-20); Carbon Dioxide 22 mmol/L (22-30); Chloride 104 mmol/L (98-107); Glucose 261 mg/dL (74-99); Non-African American GFR(CKD) 83 (>60 ml/min/1.73 sqM); Potassium 4.7 mmol/L (3.5-5.1); Sodium 135 mmol/L (137-145)
--- NOTE | 2023-09-16 12:53 | P.HPIM ---
History of Present Illness H&P Date: 09/16/23 * 72 or gentleman with past medical history significant for diabetes mellitus, hypertension, hyperlipidemia, coronary artery disease, obesity, hypothyroid, , history of CVA resent to the emergency department with complains of elevated blood glucose levels and 700. * Patient states he woke up and was working on his morning regimen noted to have elevated blood glucose levels. Patient states his significant other who helps manage his insulin and glucose at home. Patient has been on steroids recently for bronchitis apparently. Patient was given insulin in ER and admitted for adjustment of insulin while inpatient and potential discharge within the next 24 hours * Patient denied of any other acute issues * Blood work obtained in ER included CBC which showed WBC count within normal limits hemoglobin 10.2 platelet 501. Venous blood gas within normal limits * Serum chemistry obtained sodium 135 potassium 4.7 BUN 24 creatinine 0.93 magnesium 1.5 a serotonin levels negative * He was given 15 units of regular insulin in ED and admitted for adjustment of home insulin regimen REVIEW OF SYSTEMS: CONSTITUTIONAL: No fever, no malaise, no fatigue. HEENT: No recent visual problems or hearing problems. Denied any sore throat. CARDIOVASCULAR: No chest pain, orthopnea, PND, no palpitations, no syncope. PULMONARY: No shortness of breath, no cough, no hemoptysis. GASTROINTESTINAL: No diarrhea, no nausea, no vomiting, no abdominal pain. NEUROLOGICAL: No headaches, no weakness, no numbness. HEMATOLOGICAL: Denies any bleeding or petechiae. GENITOURINARY: Denies any burning micturition, frequency, or urgency. MUSCULOSKELETAL/RHEUMATOLOGICAL: Denies any joint pain, swelling, or any muscle pain. ENDOCRINE: Denies any polyuria or polydipsia. The rest of the 14-point review of systems is negative. PHYSICAL EXAMINATION: GENERAL: The patient is alert and oriented x3, not in any acute distress. Well developed, well nourished. HEENT: Pupils are round and equally reacting to light. EOMI. No scleral icterus. No conjunctival pallor. Normocephalic, atraumatic. No pharyngeal erythema. No thyromegaly. CARDIOVASCULAR: S1 and S2 present. No murmurs, rubs, or gallops. PULMONARY: Chest is clear to auscultation, no wheezing or crackles. ABDOMEN: Soft, nontender, nondistended, normoactive bowel sounds. No palpable organomegaly. MUSCULOSKELETAL: No joint swelling or deformity. EXTREMITIES: No cyanosis, clubbing, or pedal edema. NEUROLOGICAL: Gross neurological examination did not reveal any focal deficits. SKIN: No rashes. Past Medical History Past Medical History: Coronary Artery Disease (CAD), Heart Failure, CVA/TIA, Diabetes Mellitus, Hyperlipidemia, Hypertension, Myocardial Infarction ([place]), Syncope, Thyroid Disorder Additional Past Medical History / Comment(s): CT of the brain in September 2017 demonstrated old right lacunar infarct Last Myocardial Infarction Date:: 12/06/2018 History of Any Multi-Drug Resistant Organisms: None Reported Past Surgical History: Coronary Bypass/CABG, Orthopedic Surgery Additional Past Surgical History / Comment(s): right hip Past Anesthesia/Blood Transfusion Reactions: No Reported Reaction Past Psychological History: Bipolar, PTSD Smoking Status: Never smoker Past Alcohol Use History: None Reported Past Drug Use History: None Reported - Past Family History Father Family Medical History: No Reported History Mother Family Medical History: No Reported History Medications and Allergies Home Medications Medication Instructions Recorded Confirmed Type metFORMIN HCL 500 mg PO TID 02/06/19 11/06/22 History Atorvastatin [Lipitor] 40 mg PO DAILY 10/09/19 11/06/22 History INSULIN ASPART (NovoLOG) [NovoLOG 15 unit SQ AC-TID 10/09/19 11/06/22 History (formulary)] fluvoxaMINE [Luvox] 50 mg PO DAILY 10/09/19 11/06/22 History Levothyroxine Sodium [Synthroid] 100 mcg PO DAILY 11/06/22 11/06/22 History Semaglutide [Ozempic] 0.25 mg SQ Q7D 11/06/22 11/06/22 History Amoxic-Pot Clav 875-125Mg 1 tab PO BID 3 Days #6 tab 11/09/22 Rx [Augmentin 875-125] Clopidogrel [Plavix] 75 mg PO DAILY #30 tab 11/09/22 Rx Cyanocobalamin [Vitamin B-12] 1,000 mcg PO DAILY #30 tablet 11/09/22 Rx Folic Acid 1 mg PO DAILY #30 tab 11/09/22 Rx Insulin Glargine,Hum.rec.anlog 37 units SQ HS #0 11/09/22 11/06/22 Rx [Toujeo Solostar] Metoprolol Tartrate [Lopressor] 25 mg PO BID tab 11/09/22 Rx Pantoprazole Sodium [Protonix] 20 mg PO AC-BRKFST #30 tab 11/09/22 Rx amLODIPine [Norvasc] 10 mg PO DAILY #30 tab 11/09/22 Rx Ondansetron Odt [Zofran Odt] 4 mg PO Q8HR PRN #10 tab 09/11/23 Rx Allergies Allergy/AdvReac Type Severity Reaction Status Date / Time No Known Allergies Allergy Verified 08/16/23 21:49 Physical Exam Vitals: Vital Signs Temp Pulse Resp BP Pulse Ox 09/16/23 12:31 77 18 138/65 09/16/23 11:00 77 20 143/68 98 09/16/23 10:20 76 16 130/55 98 09/16/23 09:20 98 F 76 18 139/56 98 09/16/23 08:20 98 28 H 145/64 95 09/16/23 07:32 93 28 H 151/77 92 L 09/16/23 07:29 97.9 F 98 28 H 151/77 98 Intake and Output 09/15/23 09/16/23 09/16/23 22:59 06:59 14:59 Other: Weight 113.398 kg Results CBC & Chem 7: 09/16/23 07:34 09/16/23 11:54 Labs: Abnormal Lab Results - Last 24 Hours (Table) 09/16/23 09/16/23 09/16/23 Range/Units 07:34 07:34 07:37 RBC 3.49 L (4.30-5.90) m/uL Hgb 10.2 L (13.0-17.5) gm/dL Hct 32.1 L (39.0-53.0) % Plt Count 501 H (150-450) k/uL Sodium 131 L (137-145) mmol/L Chloride 95 L (98-107) mmol/L BUN 27 H (9-20) mg/dL Glucose 772 H* (74-99) mg/dL POC Glucose (mg/dL) >600 H (70-110) mg/dL Magnesium (1.6-2.3) mg/dL 09/16/23 09/16/23 09/16/23 Range/Units 08:19 09:32 09:39 RBC (4.30-5.90) m/uL Hgb (13.0-17.5) gm/dL Hct (39.0-53.0) % Plt Count (150-450) k/uL Sodium (137-145) mmol/L Chloride (98-107) mmol/L BUN (9-20) mg/dL Glucose (74-99) mg/dL POC Glucose (mg/dL) >600 H 475 H (70-110) mg/dL Magnesium 1.5 L (1.6-2.3) mg/dL 09/16/23 09/16/23 Range/Units 10:09 11:54 RBC (4.30-5.90) m/uL Hgb (13.0-17.5) gm/dL Hct (39.0-53.0) % Plt Count (150-450) k/uL Sodium 135 L (137-145) mmol/L Chloride (98-107) mmol/L BUN 24 H (9-20) mg/dL Glucose 261 H (74-99) mg/dL POC Glucose (mg/dL) 314 H (70-110) mg/dL Magnesium (1.6-2.3) mg/dL Assessment and Plan Assessment: Assessment and plan Diabetes mellitus type II with hyperglycemia Coronary artery disease Hypothyroid Hypertension Dyslipidemia * In regards to diabetes mellitus continue Accu-Cheks before meals at bedtime, continue patient on Lantus home medications to be confirmed and reconsult * In regards to coronary artery disease home medications pending will be confirmed and reconciled including Plavix and Lipitor * In regards to hypothyroidism continue Synthyroid * Continue patient with fluid resuscitation * Hypomagnesemia, magnesium replaced * CODE STATUS is full code
[2023-09-16 12:58] LABS: Glucose,Whole Blood 293 mg/dL (70-110)
[2023-09-16] MEDS: INSULIN ASPART (NovoLOG) 100 UNIT/ML VIAL SQ SCH ×3 (13:01→21:05)
[2023-09-16] MEDS ORDERED: BALSALAZIDE DISODIUM 750 MG CAPSULE PO PRN (14:11)
[2023-09-16] MEDS: MAGNESIUM SULFATE-D5W PMX 1 GM in DEXTROSE/WATER 1 100ML.BAG IVPB SCH ×2 (14:36→17:50)
[2023-09-16 16:28] LABS: Glucose,Whole Blood 313 mg/dL (70-110)
[2023-09-16] MEDS: metFORMIN 500 MG TAB PO SCH ×2 (16:38→21:04)
[2023-09-16 20:45] LABS: Glucose,Whole Blood 248 mg/dL (70-110)
[2023-09-16] MEDS: ATORVASTATIN 40 MG TAB PO SCH (21:04)
[2023-09-16] MEDS: METOPROLOL TARTRATE 12.5 MG TAB PO SCH (21:05)
[2023-09-16] MEDS: MEMANTINE 5 MG TAB PO SCH (21:34)
[2023-09-16] MEDS: risperiDONE 1 MG TAB PO SCH (21:34)
[2023-09-17] MEDS: SODIUM CHLORIDE 0.9% 1,000 ML IV SCH ×2 (01:40→11:57)
[2023-09-17 06:19] LABS: Glucose,Whole Blood 86 mg/dL (70-110)
[2023-09-17] MEDS: INSULIN ASPART (NovoLOG) 100 UNIT/ML VIAL SQ SCH ×4 (06:24→20:36)
[2023-09-17] MEDS: PANTOPRAZOLE 40 MG TABLET PO SCH (06:35)
[2023-09-17] MEDS: LEVOTHYROXINE 112 MCG TAB PO SCH (06:35)
[2023-09-17] MEDS: INSULIN DETEMIR (LEVEMIR) 100 UNIT/ML SYR SQ SCH (06:35)
[2023-09-17 08:23] LABS: Basophils % (A) 0 %; Eosinophils # (A) 0.4 k/uL (0-0.7); Eosinophils % (A) 3 %; HCT 30.5 % (39.0-53.0); HGB 9.4 gm/dL (13.0-17.5); Lymphocytes # (A) 1.7 k/uL (1.0-4.8); Lymphocytes % (A) 13 %; MCH 27.5 pg (25.0-35.0); MCHC 30.9 g/dL (31.0-37.0); MCV 88.9 fL (80.0-100.0); Mean Platelet Volume 7.7; Monocytes # (A) 0.6 k/uL (0-1.0); Monocytes % (A) 4 %; Neutrophils # (A) 9.9 k/uL (1.3-7.7); Neutrophils % (A) 78 %; Platelet Count 480 k/uL (150-450); RBC 3.43 m/uL (4.30-5.90); RDW 14.5 % (11.5-15.5); WBC 12.7 k/uL (3.8-10.6)
[2023-09-17 08:33] LABS: African American GFR (CKD) >90 (>60 ml/min/1.73 sqM); Anion Gap 9 mmol/L; Blood Urea Nitrogen 16 mg/dL (9-20); Calcium 8.1 mg/dL (8.4-10.2); Carbon Dioxide 22 mmol/L (22-30); Chloride 105 mmol/L (98-107); Glucose 72 mg/dL (74-99); Magnesium 1.7 mg/dL (1.6-2.3); Non-African American GFR(CKD) 87 (>60 ml/min/1.73 sqM); Sodium 136 mmol/L (137-145)
[2023-09-17] MEDS: ENOXAPARIN 40 MG/0.4 ML SYRINGE SQ SCH (08:46)
[2023-09-17] MEDS: amLODIPine 10 MG TAB PO SCH (08:46)
[2023-09-17] MEDS: FOLIC ACID 1 MG TAB PO SCH (08:46)
[2023-09-17] MEDS: CLOPIDOGREL 75 MG TAB PO SCH (08:46)
[2023-09-17] MEDS: metFORMIN 500 MG TAB PO SCH ×3 (08:46→22:21)
[2023-09-17] MEDS: MEMANTINE 5 MG TAB PO SCH ×2 (08:46→20:36)
[2023-09-17] MEDS: ESCITALOPRAM 10 MG TAB PO SCH (08:46)
[2023-09-17] MEDS: METOPROLOL TARTRATE 12.5 MG TAB PO SCH ×2 (08:47→20:36)
[2023-09-17 11:39] LABS: Glucose,Whole Blood 139 mg/dL (70-110)
--- NOTE | 2023-09-17 12:58 | P.PN ---
Subjective Progress Note Date: 09/17/23 * 72 or gentleman with past medical history significant for diabetes mellitus, hypertension, hyperlipidemia, coronary artery disease, obesity, hypothyroid, , history of CVA resent to the emergency department with complains of elevated blood glucose levels and 700. * Patient states he woke up and was working on his morning regimen noted to have elevated blood glucose levels. Patient states his significant other who helps manage his insulin and glucose at home. Patient has been on steroids recently for bronchitis apparently. Patient was given insulin in ER and admitted for adjustment of insulin while inpatient and potential discharge within the next 24 hours * Patient denied of any other acute issues * Blood work obtained in ER included CBC which showed WBC count within normal limits hemoglobin 10.2 platelet 501. Venous blood gas within normal limits * Serum chemistry obtained sodium 135 potassium 4.7 BUN 24 creatinine 0.93 magnesium 1.5 a serotonin levels negative * He was given 15 units of regular insulin in ED and admitted for adjustment of home insulin regimen * 09/17/2023: Patient seen and evaluated bedside, episode of hypoglycemia with glucose in 86, repeat glucose 139. HbA1c 10.4. Does of Lantus adjusted we'll continue to monitor and potential discharge within the next 24 hours Objective - Vital Signs Vital signs: Vital Signs Temp 97.7 F 09/17/23 11:59 Pulse 71 09/17/23 11:59 Resp 18 09/17/23 11:59 BP 138/79 09/17/23 11:59 Pulse Ox 97 09/17/23 11:59 FiO2 Intake & Output 09/16/23 09/17/23 09/17/23 18:59 06:59 18:59 Intake Total 130 240 Output Total 800 1000 Balance 130 -800 -760 Weight 113.398 kg Intake: IV 10 Invasive Line 1 10 Oral 120 240 Output: Urine 800 1000 Other: Voiding Method Toilet Toilet Toilet Urinal Urinal Urinal - Exam PHYSICAL EXAMINATION: GENERAL: The patient is alert and oriented x3, not in any acute distress. Well developed, well nourished. HEENT: Pupils are round and equally reacting to light. EOMI. No scleral icterus. No conjunctival pallor. Normocephalic, atraumatic. No pharyngeal erythema. No thyromegaly. CARDIOVASCULAR: S1 and S2 present. No murmurs, rubs, or gallops. PULMONARY: Chest is clear to auscultation, no wheezing or crackles. ABDOMEN: Soft, nontender, nondistended, normoactive bowel sounds. No palpable organomegaly. MUSCULOSKELETAL: No joint swelling or deformity. EXTREMITIES: No cyanosis, clubbing, or pedal edema. NEUROLOGICAL: Gross neurological examination did not reveal any focal deficits. SKIN: No rashes. - Labs CBC & Chem 7: 09/17/23 07:04 09/17/23 07:04 Labs: Abnormal Lab Results - Last 24 Hours (Table) 09/16/23 09/16/23 09/16/23 Range/Units 11:54 12:46 16:27 WBC (3.8-10.6) k/uL RBC (4.30-5.90) m/uL Hgb (13.0-17.5) gm/dL Hct (39.0-53.0) % MCHC (31.0-37.0) g/dL Plt Count (150-450) k/uL Neutrophils # (1.3-7.7) k/uL Sodium (137-145) mmol/L Glucose (74-99) mg/dL POC Glucose (mg/dL) 293 H 313 H (70-110) mg/dL Hemoglobin A1c 10.6 H (<=6.0) % Calcium (8.4-10.2) mg/dL 09/16/23 09/17/23 09/17/23 Range/Units 20:43 07:04 07:04 WBC 12.7 H (3.8-10.6) k/uL RBC 3.43 L (4.30-5.90) m/uL Hgb 9.4 L (13.0-17.5) gm/dL Hct 30.5 L (39.0-53.0) % MCHC 30.9 L (31.0-37.0) g/dL Plt Count 480 H (150-450) k/uL Neutrophils # 9.9 H (1.3-7.7) k/uL Sodium (137-145) mmol/L Glucose (74-99) mg/dL POC Glucose (mg/dL) 248 H (70-110) mg/dL Hemoglobin A1c 10.4 H (<=6.0) % Calcium (8.4-10.2) mg/dL 09/17/23 09/17/23 Range/Units 07:04 11:38 WBC (3.8-10.6) k/uL RBC (4.30-5.90) m/uL Hgb (13.0-17.5) gm/dL Hct (39.0-53.0) % MCHC (31.0-37.0) g/dL Plt Count (150-450) k/uL Neutrophils # (1.3-7.7) k/uL Sodium 136 L (137-145) mmol/L Glucose 72 L (74-99) mg/dL POC Glucose (mg/dL) 139 H (70-110) mg/dL Hemoglobin A1c (<=6.0) % Calcium 8.1 L (8.4-10.2) mg/dL Assessment and Plan Assessment: Assessment and plan Diabetes mellitus type II with hyperglycemia Coronary artery disease Hypothyroid Hypertension Dyslipidemia * In regards to diabetes mellitus continue Accu-Cheks before meals at bedtime, continue patient on Lantus 30 units HS, continue correctional insulin, metformin, correctional insulin * In regards to coronary artery disease, continue home medications including Plavix, amlodipine, Lipitor * In regards to hypothyroidism continue Synthyroid * Continue patient with fluid resuscitation, electrolytes replaced, appropriately resuscitated with fluids * CODE STATUS is full code
[2023-09-17 15:20] VITALS: BMI 33.0
[2023-09-17 16:35] LABS: Glucose,Whole Blood 161 mg/dL (70-110)
[2023-09-17 20:21] LABS: Glucose,Whole Blood 168 mg/dL (70-110)
[2023-09-17] MEDS: risperiDONE 1 MG TAB PO SCH (20:36)
[2023-09-17] MEDS: ATORVASTATIN 40 MG TAB PO SCH (20:36)
[2023-09-17] MEDS ORDERED: INSULIN DETEMIR (LEVEMIR) 100 UNIT/ML SYR SQ SCH (21:00)
[2023-09-18] MEDS: SODIUM CHLORIDE 0.9% 1,000 ML IV SCH (03:21)
[2023-09-18 06:18] LABS: Glucose,Whole Blood 213 mg/dL (70-110)
[2023-09-18] MEDS: LEVOTHYROXINE 112 MCG TAB PO SCH (06:31)
[2023-09-18] MEDS: PANTOPRAZOLE 40 MG TABLET PO SCH (06:31)
[2023-09-18] MEDS: INSULIN ASPART (NovoLOG) 100 UNIT/ML VIAL SQ SCH ×2 (06:31→12:18)
[2023-09-18] MEDS: METOPROLOL TARTRATE 12.5 MG TAB PO SCH (08:21)
[2023-09-18] MEDS: FOLIC ACID 1 MG TAB PO SCH (08:21)
[2023-09-18] MEDS: metFORMIN 500 MG TAB PO SCH (08:21)
[2023-09-18] MEDS: CLOPIDOGREL 75 MG TAB PO SCH (08:21)
[2023-09-18] MEDS: ENOXAPARIN 40 MG/0.4 ML SYRINGE SQ SCH (08:21)
[2023-09-18] MEDS: MEMANTINE 5 MG TAB PO SCH (08:21)
[2023-09-18] MEDS: ESCITALOPRAM 10 MG TAB PO SCH (08:21)
[2023-09-18] MEDS: amLODIPine 10 MG TAB PO SCH (08:22)
[2023-09-18 08:59] LABS: HCT 31.2 % (39.0-53.0); HGB 9.9 gm/dL (13.0-17.5); MCH 28.3 pg (25.0-35.0); MCHC 31.8 g/dL (31.0-37.0); Mean Platelet Volume 7.6; Platelet Count 488 k/uL (150-450); RDW 14.4 % (11.5-15.5); WBC 15.9 k/uL (3.8-10.6)
[2023-09-18 09:18] VITALS: RESP 20
[2023-09-18 09:19] LABS: African American GFR (CKD) >90 (>60 ml/min/1.73 sqM); Anion Gap 9 mmol/L; Blood Urea Nitrogen 15 mg/dL (9-20); Carbon Dioxide 22 mmol/L (22-30); Chloride 104 mmol/L (98-107); Glucose 172 mg/dL (74-99); Non-African American GFR(CKD) 79 (>60 ml/min/1.73 sqM); Potassium 4.3 mmol/L (3.5-5.1); Sodium 135 mmol/L (137-145)
--- NOTE | 2023-09-18 11:12 | P.DS ---
Providers Date of admission: 09/16/23 11:29 Expected date of discharge: 09/18/23 Attending physician: Abdirizak Felder MD [facility] Course: * 72 or gentleman with past medical history significant for diabetes mellitus, hypertension, hyperlipidemia, coronary artery disease, obesity, hypothyroid, , history of CVA resent to the emergency department with complains of elevated blood glucose levels and 700. * Patient states he woke up and was working on his morning regimen noted to have elevated blood glucose levels. Patient states his significant other who helps manage his insulin and glucose at home. Patient has been on steroids recently for bronchitis apparently. Patient was given insulin in ER and admitted for adjustment of insulin while inpatient and potential discharge within the next 24 hours * Patient denied of any other acute issues * Blood work obtained in ER included CBC which showed WBC count within normal limits hemoglobin 10.2 platelet 501. Venous blood gas within normal limits * Serum chemistry obtained sodium 135 potassium 4.7 BUN 24 creatinine 0.93 magnesium 1.5 a serotonin levels negative * He was given 15 units of regular insulin in ED and admitted for adjustment of home insulin regimen * 09/17/2023: Patient seen and evaluated bedside, episode of hypoglycemia with glucose in 86, repeat glucose 139. HbA1c 10.4. Does of Lantus adjusted we'll continue to monitor and potential discharge within the next 24 hours * 09/18/23: Patient seen and evaluated bedside, blood glucose has improved, patient to be discharged home and outpatient follow-up with PCP dose of Lantus was increased to 30 units at bedtime. Given prescription for doxycycline for bronchitis prednisone and levofloxacin discontinued PHYSICAL EXAMINATION: GENERAL: The patient is alert and oriented x3, not in any acute distress. Well developed, well nourished. HEENT: Pupils are round and equally reacting to light. EOMI. No scleral icterus. No conjunctival pallor. Normocephalic, atraumatic. No pharyngeal erythema. No thyromegaly. CARDIOVASCULAR: S1 and S2 present. No murmurs, rubs, or gallops. PULMONARY: Chest is clear to auscultation, no wheezing or crackles. ABDOMEN: Soft, nontender, nondistended, normoactive bowel sounds. No palpable organomegaly. MUSCULOSKELETAL: No joint swelling or deformity. EXTREMITIES: No cyanosis, clubbing, or pedal edema. NEUROLOGICAL: Gross neurological examination did not reveal any focal deficits. SKIN: No rashes. Assessment: Assessment and plan Diabetes mellitus type II with hyperglycemia Acute bronchitis Coronary artery disease Hypothyroid Hypertension Dyslipidemia * In regards to diabetes mellitus continue Accu-Cheks before meals at bedtime, continue patient on Lantus 30 units HS, rest of home regimen continued * In regards to coronary artery disease, continue home medications including Plavix, amlodipine, Lipitor * In regards to hypothyroidism continue Synthyroid * Patient was given prednisone prior to hospitalization which is discontinued for bronchitis discharge on oral doxycycline 5 day course * Patient appropriately resuscitated with fluid Plan - Discharge Summary Discharge Rx Participant: No New Discharge Prescriptions: New Doxycycline [Vibramycin] 100 mg PO BID 5 Days #10 capsule Continue metFORMIN HCL 500 mg PO TID fluvoxaMINE [Luvox] 50 mg PO DAILY INSULIN ASPART (NovoLOG) [NovoLOG (formulary)] See Protocol SQ AC-TID Atorvastatin [Lipitor] 40 mg PO HS Folic Acid 1 mg PO DAILY #30 tab amLODIPine [Norvasc] 10 mg PO DAILY #30 tab Clopidogrel [Plavix] 75 mg PO DAILY #30 tab Ondansetron Odt [Zofran ODT] 4 mg PO Q8HR PRN #10 tab PRN Reason: Nausea Levothyroxine Sodium [Synthroid] 112 mcg PO DAILY Memantine HCl [Namenda] 5 mg PO BID Escitalopram [Lexapro] 10 mg PO DAILY Semaglutide [Ozempic] 0.25 mg SQ Q7D Pantoprazole Sodium [Protonix] 20 mg PO AC-BRKFST #30 tab risperiDONE [RisperDAL] 1 mg PO HS Metoprolol Tartrate [Lopressor] 12.5 mg PO BID Balsalazide Disodium 750 mg PO Q8H PRN PRN Reason: Colitis Changed Insulin Glargine,Hum.rec.anlog [[place] Solostar] 30 units SQ HS #0 Discontinued predniSONE See Taper PO DIRECTED Levofloxacin [Levaquin] 500 mg PO DAILY Discharge Medication List metFORMIN HCL 500 mg PO TID 02/06/19 [History] Atorvastatin [Lipitor] 40 mg PO HS 10/09/19 [History] INSULIN ASPART (NovoLOG) [NovoLOG (formulary)] See Protocol SQ AC-TID 10/09/19 [History] fluvoxaMINE [Luvox] 50 mg PO DAILY 10/09/19 [History] Semaglutide [Ozempic] 0.25 mg SQ Q7D 11/06/22 [History] Clopidogrel [Plavix] 75 mg PO DAILY #30 tab 11/09/22 [Rx] Folic Acid 1 mg PO DAILY #30 tab 11/09/22 [Rx] Pantoprazole Sodium [Protonix] 20 mg PO AC-BRKFST #30 tab 11/09/22 [Rx] amLODIPine [Norvasc] 10 mg PO DAILY #30 tab 11/09/22 [Rx] Ondansetron Odt [Zofran ODT] 4 mg PO Q8HR PRN #10 tab 09/11/23 [Rx] Balsalazide Disodium 750 mg PO Q8H PRN 09/16/23 [History] Escitalopram [Lexapro] 10 mg PO DAILY 09/16/23 [History] Levothyroxine Sodium [Synthroid] 112 mcg PO DAILY 09/16/23 [History] Memantine HCl [Namenda] 5 mg PO BID 09/16/23 [History] Metoprolol Tartrate [Lopressor] 12.5 mg PO BID 09/16/23 [History] risperiDONE [RisperDAL] 1 mg PO HS 09/16/23 [History] Doxycycline [Vibramycin] 100 mg PO BID 5 Days #10 capsule 09/18/23 [Rx] Insulin Glargine,Hum.rec.anlog [[place] Solostedgar] 30 units SQ HS #0 09/18/23 [Rx] Follow up Appointment(s)/Referral(s): Sol Cerda MD [Primary Care Provider] - 1-2 days Discharge Disposition: HOME SELF-CARE
[2023-09-18] MEDS ORDERED: AZITHROMYCIN 500 MG TAB PO SCH (11:15)
[2023-09-18] MEDS ORDERED: DOXYCYCLINE 100 MG CAP PO SCH (11:15)
[2023-09-18 11:32] LABS: Glucose,Whole Blood 204 mg/dL (70-110)
[2023-09-18 11:37] VITALS: BP 145/69; PULSE 80; TEMP 98.1
== END 2023-09-18 14:00 | disposition home or self-care (01) ==
LOC: EC 07:21 → 3SCARD 11:29 → INTOOBSV 11:29 → 3SCARD 13:31
PROVIDERS: ADMIT Internal Medicine; ATTEND Internal Medicine
DX: R73.9 Hyperglycemia, unspecified (principal); E78.5 Hyperlipidemia, unspecified; F10.20 Alcohol dependence, uncomplicated; F17.200 Nicotine dependence, unspecified, uncomplicated; F43.10 Post-traumatic stress disorder, unspecified; I25.10 Atherosclerotic heart disease of native coronary artery without angina pectoris; I50.9 Heart failure, unspecified; I11.0 Hypertensive heart disease with heart failure; E83.42 Hypomagnesemia; E03.9 Hypothyroidism, unspecified; J44.0 Chronic obstructive pulmonary disease with (acute) lower respiratory infection; J20.9 Acute bronchitis, unspecified; I25.2 Old myocardial infarction
CPT/HCPCS: 96372 ×3; 96361; 96365; 99285; 36415; 94760; 93005; 80051; 80048 ×2; 82565; 82803; 82009; 83735 ×2; 84100; 82947; 84520; 85025 ×2; 85027; 83036 ×2; G0378 ×3; J1650 ×2; J3475

== ENCOUNTER 2023-10-04 19:58 | Emergency (ER) | payer MEDICARE, OTHER ==
[2023-10-04 20:23] VITALS: TEMP 96.4
[2023-10-04 20:23] LABS: Glucose,Whole Blood 368 mg/dL (70-110)
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
[2023-10-04] MEDS ORDERED: SODIUM CHLORIDE 0.9% 1,000 ML IV ONE (20:47)
[2023-10-04 22:45] LABS: ALT 15 U/L (4-49); AST 28 U/L (17-59); African American GFR (CKD) >90 (>60 ml/min/1.73 sqM); Albumin 3.9 g/dL (3.5-5.0); Alkaline Phosphatase 83 U/L (38-126); Anion Gap 14 mmol/L; Blood Urea Nitrogen 14 mg/dL (9-20); Calcium 8.7 mg/dL (8.4-10.2); Carbon Dioxide 18 mmol/L (22-30); Chloride 99 mmol/L (98-107); Glucose 378 mg/dL (74-99); Magnesium 1.6 mg/dL (1.6-2.3); Non-African American GFR(CKD) 79 (>60 ml/min/1.73 sqM); Sodium 131 mmol/L (137-145); Total Bilirubin 0.9 mg/dL (0.2-1.3); Total Protein 7.3 g/dL (6.3-8.2)
[2023-10-04] MEDS ORDERED: INSULIN REGULAR 100 UNIT/ML VIAL (IV) IV ONE (22:51)
[2023-10-04] MEDS ORDERED: SODIUM CHLORIDE 0.9% 1,000 ML IV STA (22:59)
[2023-10-04 23:28] LABS: Basophils % (A) 0 %; Eosinophils # (A) 0.1 k/uL (0-0.7); Eosinophils % (A) 1 %; HCT 37.8 % (39.0-53.0); HGB 12.3 gm/dL (13.0-17.5); Lymphocytes # (A) 0.8 k/uL (1.0-4.8); Lymphocytes % (A) 5 %; MCH 29.1 pg (25.0-35.0); MCHC 32.4 g/dL (31.0-37.0); MCV 89.7 fL (80.0-100.0); Mean Platelet Volume 7.3; Monocytes # (A) 0.5 k/uL (0-1.0); Monocytes % (A) 3 %; Neutrophils # (A) 15.6 k/uL (1.3-7.7); Neutrophils % (A) 91 %; Platelet Count 472 k/uL (150-450); RBC 4.22 m/uL (4.30-5.90); RDW 14.7 % (11.5-15.5); WBC 17.3 k/uL (3.8-10.6)
[2023-10-04 23:40] VITALS: RESP 18
[2023-10-04 23:49] LABS: Glucose,Whole Blood 324 mg/dL (70-110)
[2023-10-05 00:03] VITALS: BP 145/88; PULSE 108
== END 2023-10-05 00:18 | disposition other institution (70) ==
LOC: EC 19:58
DX: E11.65 Type 2 diabetes mellitus with hyperglycemia (principal); R00.0 Tachycardia, unspecified; E78.5 Hyperlipidemia, unspecified; I11.0 Hypertensive heart disease with heart failure; I50.9 Heart failure, unspecified; I25.10 Atherosclerotic heart disease of native coronary artery without angina pectoris; I25.2 Old myocardial infarction; E07.9 Disorder of thyroid, unspecified; F31.9 Bipolar disorder, unspecified; Z79.890 Hormone replacement therapy; Z79.4 Long term (current) use of insulin; Z79.84 Long term (current) use of oral hypoglycemic drugs; Z95.1 Presence of aortocoronary bypass graft; Z79.01 Long term (current) use of anticoagulants
CPT/HCPCS: 36415; 80053; 82009; 83735; 85025; 85610; 85730; 93005; 96360; 99284

== ENCOUNTER 2023-10-07 11:57 | Inpatient (IN) | payer MEDICARE, OTHER ==
[2023-10-07 12:12] LABS: Glucose,Whole Blood 199 mg/dL (70-110)
[2023-10-07] MEDS ORDERED: SODIUM CHLORIDE 0.9% 1,000 ML IV STA ×2 (12:26)
[2023-10-07] MEDS ORDERED: SODIUM CHLORIDE 0.9% 1,000 ML IV ONE (12:39)
--- NOTE | 2023-10-07 12:40 | ED ---
Weakness HPI - General Chief complaint: Weakness Stated complaint: Weakness,Nausea,Confusion Time Seen by Provider: 10/07/23 12:00 Source: patient, police, EMS, RN notes reviewed, old records reviewed Mode of arrival: EMS - History of Present Illness Initial comments: 72-year-old male with a history of heart disease bypass surgery diabetes hypertension and heart failure hypothyroidism history of hypothyroidism acute kidney injury bipolar disorder who is brought from the local [facility] today because of generalized weakness decreased activity decrease oral intake incontinence of stool this progressed over last 4 days since he arrived there. No trauma reported though when he was here 4 days ago there was record internal possible head injury. No external signs of injury at that time. Patient's been demonstrating confusion. Patient also is been demonstrating a unsteady gait patient is a poor historian. Additional information patient apparently was demonstrating clammy skin per paramedics brought the patient. MD Complaint: generalized weakness - Related Data Home Medications Medication Instructions Recorded Confirmed metFORMIN HCL 500 mg PO TID 02/06/19 10/07/23 Atorvastatin [Lipitor] 40 mg PO HS 10/09/19 10/07/23 Levothyroxine Sodium [Synthroid] 112 mcg PO DAILY 09/16/23 10/07/23 Metoprolol Tartrate [Lopressor] 12.5 mg PO BID 09/16/23 10/07/23 Insulin Regular, Human [Novolin R] See Protocol SQ ACHS 10/07/23 10/07/23 Pantoprazole [Protonix] 40 mg PO DAILY 10/07/23 10/07/23 Previous Rx's Medication Instructions Recorded amLODIPine [Norvasc] 10 mg PO DAILY #30 tab 11/09/22 Allergies Allergy/AdvReac Type Severity Reaction Status Date / Time No Known Allergies Allergy Verified 10/07/23 17:39 Review of Systems ROS Statement: Those systems with pertinent positive or pertinent negative responses have been documented in the HPI. ROS Other: All systems not noted in ROS Statement are negative. Past Medical History Past Medical History: Coronary Artery Disease (CAD), Heart Failure, Diabetes Mellitus, Hyperlipidemia, Hypertension, Myocardial Infarction (IN), Syncope, Thyroid Disorder Additional Past Medical History / Comment(s): CT of the brain in September 2017 demonstrated old right lacunar infarct Last Myocardial Infarction Date:: 12/06/2018 History of Any Multi-Drug Resistant Organisms: None Reported Past Surgical History: Coronary Bypass/CABG, Orthopedic Surgery Additional Past Surgical History / Comment(s): right hip Past Anesthesia/Blood Transfusion Reactions: No Reported Reaction Past Psychological History: Bipolar, PTSD Smoking Status: Never smoker Past Alcohol Use History: None Reported Past Drug Use History: None Reported - Past Family History Father Family Medical History: No Reported History Mother History Unknown: Yes Family Medical History: No Reported History General Exam - General Exam Comments Initial Comments: Pezzer well-developed well-nourished awake lethargic male. He later stated he had some midsternal chest pain it was sharp. General appearance: alert, lethargic Head exam: Present: atraumatic, normocephalic, normal inspection Eye exam: Present: normal appearance, PERRL, EOMI. Absent: scleral icterus, conjunctival injection, periorbital swelling ENT exam: Present: mucous membranes dry Neck exam: Present: normal inspection, full ROM, other (No center Camron bruits). Absent: tenderness, meningismus, lymphadenopathy Respiratory exam: Present: normal lung sounds bilaterally, chest wall tenderness. Absent: respiratory distress, wheezes, rales, rhonchi, stridor Cardiovascular Exam: Present: normal rhythm, tachycardia, normal heart sounds. Absent: systolic murmur, diastolic murmur, rubs, gallop, clicks GI/Abdominal exam: Present: soft, normal bowel sounds. Absent: distended, tenderness, guarding, rebound, rigid, bruit, pulsatile mass Extremities exam: Present: normal inspection, full ROM, normal capillary refill. Absent: tenderness, pedal edema, joint swelling, calf tenderness Back exam: Present: normal inspection Neurological exam: Present: alert, altered, CN II-XII intact Psychiatric exam: Present: flat affect Skin exam: Present: warm, dry, intact, pallor. Absent: rash Course Vital Signs 10/07/23 10/07/23 10/07/23 11:59 12:30 14:15 Temperature 97.9 F 102.8 F H Pulse Rate 112 H 112 H 112 H Respiratory 2 L 22 20 Rate Blood Pressure 135/83 166/91 135/84 O2 Sat by Pulse 97 97 98 Oximetry 10/07/23 10/07/23 10/07/23 15:03 16:03 17:35 Temperature 102.4 F H 100.9 F H Pulse Rate 115 H 105 H 92 Respiratory 22 20 18 Rate Blood Pressure 113/90 124/68 111/70 O2 Sat by Pulse 98 97 97 Oximetry - Reevaluation(s) Reevaluation #1: 10/07/23 17:42 Delay of admission secondary to getting lab work and x-ray results slowly. EKG Findings - EKG Results: EKG: interpreted by JAMISON (EKG interpreted by me sinus tachycardia rate of 1:15 TX interval 209 QRS duration 75 daily since QTC 322/390 low-voltage some artifact present no acute ST-T wave changes) Medical Decision Making - Medical Decision Making I did discuss findings with the patient and with Dr. moreland who did come see the patient in the emergency department in addition to the building drafting officer with the patient. Patient is Covid 19 Positive. UA pending at this timeWas pt. sent in by a medical professional or institution (, PA, LIFT OPERATOR, urgent care, hospital, or snf...) When possible be specific @ -No Did you speak to anyone other than the patient for history (EMS, parent, family, police, friend...)? What history was obtained from this source @ -The building drafting officer with the patient Did you review nursing and triage notes (agree or disagree)? Why? @ -I reviewed and agree with nursing and triage notes Were old charts reviewed (outside hosp., previous admission, EMS record, old EKG, old radiological studies, urgent care reports/EKG's, snf records)? Report findings @ -Devious admission old charts were reviewed Differential Diagnosis (chest pain, altered mental status, abdominal pain women, abdominal pain men, vaginal bleeding, weakness, fever, dyspnea, syncope, headache, dizziness, GI bleed, back pain, seizure, CVA, palpatations, mental health, musculoskeletal)? @ -Confusion, elevated blood sugar, infectious process EKG interpreted by me (3pts min.). @ -As above daily interpreted by me sinus tachycardia rate 1:15 TX interval 209 QRS 75 QT since QTC 322/390 low-voltage this is compared to one done in 10/04/23 showing similar configuration's X-rays interpreted by me (1pt min.). @ -Chest x-ray interpreted by me no acute process] CT interpreted by me (1pt min.). @ -CT brain interpreted by me no acute process U/S interpreted by me (1pt. min.). @ -None done What testing was considered but not performed or refused? (CT, X-rays, U/S, labs)? Why? @ -None What meds were considered but not given or refused? Why? @ -None Did you discuss the management of the patient with other professionals (professionals i.e. , PA, LIFT OPERATOR, lab, RT, psych nurse, director of social work, major gifts director, teacher, corporate development officer, case finisher)? Give summary @ -Dr. Moreland who did see the patient in emergency department Was smoking cessation discussed for >3mins.? @ -No Was critical care preformed (if so, how long)? @ -No Were there social determinants of health that impacted care today? How? (Homelessness, low income, unemployed, alcoholism, drug addiction, transportation, low edu. Level, literacy, decrease access to med. care, [facility], rehab)? @ -No Was there de-escalation of care discussed even if they declined (Discuss DNR or withdrawal of care, Hospice)? DNR status @ -No What co-morbidities impacted this encounter? (DM, HTN, Smoking, COPD, CAD, Cancer, CVA, ARF, Chemo, Hep., AIDS, mental health diagnosis, sleep apnea, morbid obesity)? @ -Diabetes Was patient admitted / discharged? Hospital course, mention meds given and route, prescriptions, significant lab abnormalities, going to OR and other pertinent info. @ -hospital course the patient was admitted for inpatient evaluation and treatment Undiagnosed new problem with uncertain prognosis? @ -Covid 19 Drug Therapy requiring intensive monitoring for toxicity (Heparin, Nitro, Insulin, Cardizem)? @ -No Were any procedures done? @ -No Diagnosis/symptom? @ -Acute confusional state, Covid 19, febrile illness, elevated BNP elevated lactic acid Acute, or Chronic, or Acute on Chronic? @ -Acute Uncomplicated (without systemic symptoms) or Complicated (systemic symptoms)? @ -Complicated Side effects of treatment? @ -No Exacerbation, Progression, or Severe Exacerbation? @ -No Poses a threat to life or bodily function? How? (Chest pain, [place], [place], pneumonia, PE, COPD, DKA, ARF, appy, cholecystitis, CVA, Diverticulitis, Homicidal, Suicidal, threat to staff... and all critical care pts) @ -No - Lab Data Result diagrams: 10/07/23 12:29 10/07/23 12:29 Lab Results 10/07/23 10/07/23 10/07/23 Range/Units 12:10 12:29 12:29 WBC 12.5 H (3.8-10.6) k/uL RBC 4.37 (4.30-5.90) m/uL Hgb 12.5 L (13.0-17.5) gm/dL Hct 38.4 L (39.0-53.0) % MCV 87.8 (80.0-100.0) fL MCH 28.5 (25.0-35.0) pg MCHC 32.5 (31.0-37.0) g/dL RDW 15.0 (11.5-15.5) % Plt Count 434 (150-450) k/uL MPV 7.1 Neutrophils % 84 % Lymphocytes % 7 % Monocytes % 7 % Eosinophils % 0 % Basophils % 0 % Neutrophils # 10.4 H (1.3-7.7) k/uL Lymphocytes # 0.9 L (1.0-4.8) k/uL Monocytes # 0.9 (0-1.0) k/uL Eosinophils # 0.0 (0-0.7) k/uL Basophils # 0.0 (0-0.2) k/uL PT 10.9 (10.0-12.5) sec INR 1.0 (<1.2) APTT 24.2 (22.0-30.0) sec Sodium (137-145) mmol/L Potassium (3.5-5.1) mmol/L Chloride (98-107) mmol/L Carbon Dioxide (22-30) mmol/L Anion Gap mmol/L BUN (9-20) mg/dL Creatinine (0.66-1.25) mg/dL Est GFR (CKD-EPI)AfAm (>60 ml/min/1.73 sqM) Est GFR (CKD-EPI)NonAf (>60 ml/min/1.73 sqM) Glucose (74-99) mg/dL POC Glucose (mg/dL) 199 H (70-110) mg/dL POC Glu Glue Cook ID Rumson, Aleksandra Lactic Ac Sepsis Rflx Plasma Lactic Acid Lior (0.7-2.0) mmol/L Calcium (8.4-10.2) mg/dL Magnesium (1.6-2.3) mg/dL Total Bilirubin (0.2-1.3) mg/dL AST (17-59) U/L ALT (4-49) U/L Alkaline Phosphatase (38-126) U/L Ammonia (<30) umol/L Creatine Kinase (55-170) U/L Troponin I (0.000-0.034) ng/mL NT-Pro-B Natriuret Pep pg/mL Total Protein (6.3-8.2) g/dL Albumin (3.5-5.0) g/dL Lipase (23-300) U/L TSH (0.465-4.680) mIU/L Free T4 (0.78-2.19) ng/dL Urine Color Urine Appearance (Clear) Urine pH (5.0-8.0) Ur Specific [place] (1.001-1.035) Urine Protein (Negative) Urine Glucose (UA) (Negative) Urine Ketones (Negative) Urine Blood (Negative) Urine Nitrite (Negative) Urine Bilirubin (Negative) Urine Urobilinogen (<2.0) mg/dL Ur Leukocyte Esterase (Negative) Urine WBC (0-5) /hpf Urine Bacteria (None) /hpf Hyaline Casts (0-2) /lpf Urine Mucus (None) /hpf Acetone, Qual (Negative) Influenza Type A (PCR) (Not Detectd) Influenza Type B (PCR) (Not Detectd) RSV (PCR) (Not Detectd) SARS-CoV-2 (PCR) (Not Detectd) 10/07/23 10/07/23 10/07/23 Range/Units 12:29 12:29 12:29 WBC (3.8-10.6) k/uL RBC (4.30-5.90) m/uL Hgb (13.0-17.5) gm/dL Hct (39.0-53.0) % MCV (80.0-100.0) fL MCH (25.0-35.0) pg MCHC (31.0-37.0) g/dL RDW (11.5-15.5) % Plt Count (150-450) k/uL MPV Neutrophils % % Lymphocytes % % Monocytes % % Eosinophils % % Basophils % % Neutrophils # (1.3-7.7) k/uL Lymphocytes # (1.0-4.8) k/uL Monocytes # (0-1.0) k/uL Eosinophils # (0-0.7) k/uL Basophils # (0-0.2) k/uL PT (10.0-12.5) sec INR (<1.2) APTT (22.0-30.0) sec Sodium 138 (137-145) mmol/L Potassium 5.1 (3.5-5.1) mmol/L Chloride 102 (98-107) mmol/L Carbon Dioxide 21 L (22-30) mmol/L Anion Gap 15 mmol/L BUN 16 (9-20) mg/dL Creatinine 1.02 (0.66-1.25) mg/dL Est GFR (CKD-EPI)AfAm 86 (>60 ml/min/1.73 sqM) Est GFR (CKD-EPI)NonAf 74 (>60 ml/min/1.73 sqM) Glucose 200 H (74-99) mg/dL POC Glucose (mg/dL) (70-110) mg/dL POC Glu Glue Cook ID Lactic Ac Sepsis Rflx Plasma Lactic Acid Lior 2.3 H* (0.7-2.0) mmol/L Calcium 9.1 (8.4-10.2) mg/dL Magnesium 1.6 (1.6-2.3) mg/dL Total Bilirubin 0.5 (0.2-1.3) mg/dL AST 33 (17-59) U/L ALT 20 (4-49) U/L Alkaline Phosphatase 82 (38-126) U/L Ammonia <9 (<30) umol/L Creatine Kinase 219 H (55-170) U/L Troponin I (0.000-0.034) ng/mL NT-Pro-B Natriuret Pep 3430 pg/mL Total Protein 7.6 (6.3-8.2) g/dL Albumin 4.1 (3.5-5.0) g/dL Lipase 36 (23-300) U/L TSH 6.120 H (0.465-4.680) mIU/L Free T4 2.29 H (0.78-2.19) ng/dL Urine Color Yellow Urine Appearance Cloudy (Clear) Urine pH 5.5 (5.0-8.0) Ur Specific [place] 1.023 (1.001-1.035) Urine Protein 2+ H (Negative) Urine Glucose (UA) 3+ H (Negative) Urine Ketones 2+ H (Negative) Urine Blood Trace H (Negative) Urine Nitrite Negative (Negative) Urine Bilirubin Negative (Negative) Urine Urobilinogen <2.0 (<2.0) mg/dL Ur Leukocyte Esterase Negative (Negative) Urine WBC 1 (0-5) /hpf Urine Bacteria Rare H (None) /hpf Hyaline Casts 1 (0-2) /lpf Urine Mucus Rare H (None) /hpf Acetone, Qual Positive (Negative) Influenza Type A (PCR) (Not Detectd) Influenza Type B (PCR) (Not Detectd) RSV (PCR) (Not Detectd) SARS-CoV-2 (PCR) (Not Detectd) 10/07/23 10/07/23 10/07/23 Range/Units 12:29 13:48 14:34 WBC (3.8-10.6) k/uL RBC (4.30-5.90) m/uL Hgb (13.0-17.5) gm/dL Hct (39.0-53.0) % MCV (80.0-100.0) fL MCH (25.0-35.0) pg MCHC (31.0-37.0) g/dL RDW (11.5-15.5) % Plt Count (150-450) k/uL MPV Neutrophils % % Lymphocytes % % Monocytes % % Eosinophils % % Basophils % % Neutrophils # (1.3-7.7) k/uL Lymphocytes # (1.0-4.8) k/uL Monocytes # (0-1.0) k/uL Eosinophils # (0-0.7) k/uL Basophils # (0-0.2) k/uL PT (10.0-12.5) sec INR (<1.2) APTT (22.0-30.0) sec Sodium (137-145) mmol/L Potassium (3.5-5.1) mmol/L Chloride (98-107) mmol/L Carbon Dioxide (22-30) mmol/L Anion Gap mmol/L BUN (9-20) mg/dL Creatinine (0.66-1.25) mg/dL Est GFR (CKD-EPI)AfAm (>60 ml/min/1.73 sqM) Est GFR (CKD-EPI)NonAf (>60 ml/min/1.73 sqM) Glucose (74-99) mg/dL POC Glucose (mg/dL) (70-110) mg/dL POC Glu Glue Cook ID Lactic Ac Sepsis Rflx Y Plasma Lactic Acid Lior (0.7-2.0) mmol/L Calcium (8.4-10.2) mg/dL Magnesium (1.6-2.3) mg/dL Total Bilirubin (0.2-1.3) mg/dL AST (17-59) U/L ALT (4-49) U/L Alkaline Phosphatase (38-126) U/L Ammonia (<30) umol/L Creatine Kinase (55-170) U/L Troponin I 0.023 (0.000-0.034) ng/mL NT-Pro-B Natriuret Pep pg/mL Total Protein (6.3-8.2) g/dL Albumin (3.5-5.0) g/dL Lipase (23-300) U/L TSH (0.465-4.680) mIU/L Free T4 (0.78-2.19) ng/dL Urine Color Urine Appearance (Clear) Urine pH (5.0-8.0) Ur Specific [place] (1.001-1.035) Urine Protein (Negative) Urine Glucose (UA) (Negative) Urine Ketones (Negative) Urine Blood (Negative) Urine Nitrite (Negative) Urine Bilirubin (Negative) Urine Urobilinogen (<2.0) mg/dL Ur Leukocyte Esterase (Negative) Urine WBC (0-5) /hpf Urine Bacteria (None) /hpf Hyaline Casts (0-2) /lpf Urine Mucus (None) /hpf Acetone, Qual (Negative) Influenza Type A (PCR) Not Detected (Not Detectd) Influenza Type B (PCR) Not Detected (Not Detectd) RSV (PCR) Not Detected (Not Detectd) SARS-CoV-2 (PCR) Detected A (Not Detectd) - Radiology Data Interpreted by me: Chest x-ray interpreted by me negative for acute process CAT scans the brain also appeared to by me no acute process Disposition Clinical Impression: Altered mental status, Febrile illness, acute, COVID-19, Hyperglycemia, Elevated brain natriuretic peptide (BNP) level, Ataxia with lactic acidosis I Disposition: ADMITTED IP TO THIS HOSP Condition: Fair Referrals: Sol Cerda MD [Primary Care Provider] - 1-2 days Decision Date: 10/07/23 Decision Time: 17:00
[2023-10-07 13:25] LABS: Basophils % (A) 0 %; Eosinophils % (A) 0 %; HCT 38.4 % (39.0-53.0); HGB 12.5 gm/dL (13.0-17.5); Lymphocytes # (A) 0.9 k/uL (1.0-4.8); Lymphocytes % (A) 7 %; MCH 28.5 pg (25.0-35.0); MCHC 32.5 g/dL (31.0-37.0); MCV 87.8 fL (80.0-100.0); Mean Platelet Volume 7.1; Monocytes # (A) 0.9 k/uL (0-1.0); Monocytes % (A) 7 %; Neutrophils # (A) 10.4 k/uL (1.3-7.7); Neutrophils % (A) 84 %; Platelet Count 434 k/uL (150-450); RBC 4.37 m/uL (4.30-5.90); WBC 12.5 k/uL (3.8-10.6)
[2023-10-07 13:47] LABS: Lactic Acid, Venous 2.3 mmol/L (0.7-2.0)
[2023-10-07 13:48] LABS: Partial Thromboplastin Time 24.2 sec (22.0-30.0); Prothrombin Time 10.9 sec (10.0-12.5)
[2023-10-07 14:05] LABS: ALT 20 U/L (4-49); AST 33 U/L (17-59); African American GFR (CKD) 86 (>60 ml/min/1.73 sqM); Albumin 4.1 g/dL (3.5-5.0); Alkaline Phosphatase 82 U/L (38-126); Anion Gap 15 mmol/L; Blood Urea Nitrogen 16 mg/dL (9-20); Calcium 9.1 mg/dL (8.4-10.2); Carbon Dioxide 21 mmol/L (22-30); Chloride 102 mmol/L (98-107); Creatine Kinase 219 U/L (55-170); Glucose 200 mg/dL (74-99); Lipase 36 U/L (23-300); Magnesium 1.6 mg/dL (1.6-2.3); Non-African American GFR(CKD) 74 (>60 ml/min/1.73 sqM); Potassium 5.1 mmol/L (3.5-5.1); Sodium 138 mmol/L (137-145); Total Bilirubin 0.5 mg/dL (0.2-1.3); Total Protein 7.6 g/dL (6.3-8.2)
[2023-10-07 14:12] LABS: NT-Pro-B-Type Natriuretic Pept 3430 pg/mL
[2023-10-07] MEDS ORDERED: ACETAMINOPHEN TAB 500 MG TAB PO STA (14:47)
--- NOTE | 2023-10-07 15:00 | CT ---
EXAMINATION TYPE: CT brain wo con CT DLP: 2362.4 mGycm, Automated exposure control for dose reduction was used. DATE OF EXAM: 10/07/2023 1:50 PM COMPARISON: CT head 08/04/2023. CLINICAL INDICATION:Male, 72 years old with history of Altered mental status, Altered mental status TECHNIQUE: Brain: Axial CT images of the brain were obtained with coronal and sagittal reformats created and rev iewed. Contrast used: None. Oral contrast used: None. FINDINGS: Brain: Motion limited exam. Portions of the exam were repeated. Extra-axial spaces: No abnormal extra-axial fluid collections. Ventricular system: Appear dilated in proportion to cerebral atrophy. Cerebral parenchyma: No acute intraparenchymal hemorrhage or mass effect. The mosley-white matter int erface appears maintained. Mild/moderate generalized brain atrophy. Remote appearing lacunar infarct right thalamus. Moderate patchy hypoattenuation throughout the cerebral white matter suggestive of c hronic microvascular ischemic changes. Cerebellum: No acute abnormality. Mass effect: No evidence of midline shift. Intracranial vasculature: Atherosclerotic calcifications of the larger arteries noted near the skull base. Soft tissues: Minor scalp opacity anteriorly over the left frontal region, could represent contusion. Calvarium/osseous structures: No depressed skull fracture. Mild deformity of the nasal bones appear c hronic compared to prior. Paranasal sinuses and mastoid air cells: No significant fluid accumulation. Mild mucosal thickening. Visualized orbits: Orbital contents appear grossly intact. IMPRESSION: 1. No acute intracranial CT abnormality. 2. Atrophy and chronic microvascular ischemic changes. 3. Minor scalp opacity anteriorly over the left frontal region, could represent contusion. No eviden ce of calvarial fracture.
[2023-10-07 15:44] LABS: Appearance,Urine Cloudy (Clear); Bacteria,Urine Rare /hpf; Bilirubin,Urine Negative (Negative); Blood,Urine Trace (Negative); Color,Urine Yellow; Glucose,Urine (UA) 3+ (Negative); Hyaline Casts,Urine 1 /lpf (0-2); Ketones,Urine 2+ (Negative); Leukocyte Esterase,Urine Negative (Negative); Mucus,Urine Rare /hpf; Nitrite,Urine Negative (Negative); PH, Urine 5.5 (5.0-8.0); Protein,Urine 2+ (Negative); Specific Gravity,Urine 1.023 (1.001-1.035); Urobilinogen,Urine <2.0 mg/dL (<2.0); WBC,Urine 1 /hpf (0-5)
[2023-10-07 15:57] LABS: T4, Free (Free Thyroxine) 2.29 ng/dL (0.78-2.19)
[2023-10-07] MEDS ORDERED: cefTRIAXone IN SWFI 1,000 MG/10 ML SYRINGE IVP STA (16:13)
[2023-10-07] MEDS ORDERED: IBUPROFEN 800 MG TAB PO STA (16:18)
--- NOTE | 2023-10-07 16:22 | XR ---
EXAMINATION TYPE: XR chest 2V DATE OF EXAM: 10/07/2023 1:56 PM CLINICAL INDICATION:Male, 72 years old with history of Weakness; [facility] COMPARISON: 09/11/2023 TECHNIQUE: XR chest 2V Frontal and lateral views of the chest. FINDINGS: Lines/Tubes: EKG leads overlie the chest. No indwelling lines are seen. Lungs/Pleura: There is no evidence of pleural effusion, focal consolidation, or pneumothorax. Chroni c senescent changes. Pulmonary vascularity: Unremarkable. Heart/mediastinum: Stable, heart size is within normal limits. Musculoskeletal: No acute osseous pathology. Sternotomy wires present. Other findings: None IMPRESSION: No acute cardiopulmonary disease/process.
--- NOTE | 2023-10-07 16:34 | XR ---
EXAMINATION TYPE: XR KUB DATE OF EXAM: 10/07/2023 1:56 PM CLINICAL INDICATION:Male, 72 years old with history of Incontinence; [facility] COMPARISON: None. TECHNIQUE: One radiographic view of the abdomen was obtained. FINDINGS: Nonspecific bowel gas pattern, gas throughout mildly distended small bowel loops, may repre sent ileus. Mild/moderate stool throughout the colon. Bladder is likely mildly distended. No definite pathologic calcifications can be seen. Diffuse degenerative changes throughout the spine and hips wi th acetabular reconstructive hardware noted on the right. IMPRESSION: Nonspecific bowel gas pattern, may represent fecal stasis/ileus. If there is persistent concern, foll ow-up radiographs or CT may be considered.
[2023-10-07] MEDS ORDERED: ONDANSETRON 4 MG/2 ML VIAL IVP STA (16:38)
[2023-10-07] MEDS ORDERED: ACETAMINOPHEN TAB 325 MG TAB PO PRN (17:31)
[2023-10-07] MEDS ORDERED: NALOXONE 0.4 MG/ML 1 ML VIAL IV PRN (17:31)
[2023-10-07] MEDS: SODIUM CHLORIDE 0.9% 1,000 ML IV SCH (17:37)
[2023-10-07] MEDS ORDERED: DEXTROSE 50% SYRINGE 50 ML IVP PRN ×2 (17:40)
[2023-10-07 17:46] LABS: Glucose,Whole Blood 121 mg/dL (70-110)
--- NOTE | 2023-10-07 17:54 | P.HPIM ---
History of Present Illness This is a pleasant 72 years old male from [facility] with past medical history of Coronary Artery Disease status post CABG , Heart Failure, Diabetes Mellitus, Hyperlipidemia, Hypertension, Syncope, thyroid disease, CT of the brain in [place] [facility] 2016 demonstrated old right lacunar infarct, Bipolar, PTSD. PCP is Dr. 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 He denies chest pain dyspnea or coughing No vomiting but he has somewhat poor appetite He denies dysuria , but there was concern about urgency as he was wetting himself as per officer at bedside while he was in [facility]. No no headache dizziness weakness or numbness in extremities. He denies smoking alcohol or illicit drugs Patient has a fever of 102, Postoperative vitals are stable, he is mildly tachycardic but saturating 97% on room air showing mild leukocytosis 12.5, hemoglobin 12.5, platelet count normal. He has some evidence of lymphopenia 0.9 and left shift with neutrophilia at 10.4%. INR 1.0. BMP is unremarkable. Carbon dioxide 21. Glucose elevated at 200. Lactic acid 2.3 which is mildly elevated. Liver enzymes are unremarkable, ammonia, creatinine kinase and troponin are all negative. ProBNP is 3430. Urine analysis showing 2+ protein, 3+ glucose, 2+ ketones with no evidence of infection. Acetone is positive. Influenza and RSV are negative but Covid test came back positive Chest x-ray: No acute cardiopulmonary process CT of the brain: No acute process. Atrophy KUB:Nonspecific bowel gas pattern, may represent fecal stasis/ileus. If there is persistent concern, follow-up radiographs or CT may be considered. Generous him to IV fluids and Rocephin in the emergency room Review of Systems Review of systems CONSTITUTIONAL: No fever, no malaise, no fatigue. HEENT: No recent visual problems or hearing problems. Denied any sore throat. CARDIOVASCULAR: No orthopnea, PND, no palpitations, no syncope. PULMONARY: No shortness of breath, no cough, no hemoptysis. GASTROINTESTINAL: No diarrhea, no nausea, no vomiting, no abdominal pain. Normoactive bowel sounds. NEUROLOGICAL: No headaches, no weakness, no numbness. HEMATOLOGICAL: Denies any bleeding or petechiae. GENITOURINARY: Denies any burning micturition, frequency, or urgency. MUSCULOSKELETAL/RHEUMATOLOGICAL: Denies any joint pain, swelling, or any muscle pain. ENDOCRINE: Denies any polyuria or polydipsia. Past Medical History Past Medical History: Coronary Artery Disease (CAD), Heart Failure, Diabetes Mellitus, Hyperlipidemia, Hypertension, Myocardial Infarction (GA), Syncope, Thyroid Disorder Additional Past Medical History / Comment(s): CT of the brain in September 2017 demonstrated old right lacunar infarct Last Myocardial Infarction Date:: 12/06/2018 History of Any Multi-Drug Resistant Organisms: None Reported Past Surgical History: Coronary Bypass/CABG, Orthopedic Surgery Additional Past Surgical History / Comment(s): right hip Past Anesthesia/Blood Transfusion Reactions: No Reported Reaction Past Psychological History: Bipolar, PTSD Smoking Status: Never smoker Past Alcohol Use History: None Reported Past Drug Use History: None Reported - Past Family History Father Family Medical History: No Reported History Mother History Unknown: Yes Family Medical History: No Reported History Medications and Allergies Home Medications Medication Instructions Recorded Confirmed Type metFORMIN HCL 500 mg PO TID 02/06/19 10/07/23 History Atorvastatin [Lipitor] 40 mg PO HS 10/09/19 10/07/23 History amLODIPine [Norvasc] 10 mg PO DAILY #30 tab 11/09/22 10/07/23 Rx Levothyroxine Sodium [Synthroid] 112 mcg PO DAILY 09/16/23 10/07/23 History Metoprolol Tartrate [Lopressor] 12.5 mg PO BID 09/16/23 10/07/23 History Insulin Regular, Human [Novolin R] See Protocol SQ ACHS 10/07/23 10/07/23 History Pantoprazole [Protonix] 40 mg PO DAILY 10/07/23 10/07/23 History Allergies Allergy/AdvReac Type Severity Reaction Status Date / Time No Known Allergies Allergy Verified 10/07/23 17:39 Physical Exam Vitals: Vital Signs Temp Pulse Resp BP Pulse Ox 10/07/23 16:03 102.4 F H 105 H 20 124/68 97 10/07/23 15:03 115 H 22 113/90 98 10/07/23 14:15 102.8 F H 112 H 20 135/84 98 10/07/23 12:30 112 H 22 166/91 97 10/07/23 11:59 97.9 F 112 H 2 L 135/83 97 Intake and Output 10/07/23 10/07/23 10/07/23 06:59 14:59 22:59 Other: Weight 107.501 kg -GENERAL: The patient is alert and oriented x3, not in any acute distress. obese , generally weak HEENT: Pupils are round and equally reacting to light. EOMI. No scleral icterus. No conjunctival pallor. Normocephalic, atraumatic. No pharyngeal erythema. No thyromegaly. CARDIOVASCULAR: S1 and S2 present. No murmurs, rubs, or gallops. PULMONARY: Chest is clear to auscultation, no wheezing , no crackles. ABDOMEN: Soft, nontender, nondistended, normoactive bowel sounds. No palpable organomegaly. MUSCULOSKELETAL: No joint swelling or deformity. EXTREMITIES: No cyanosis, clubbing, or pedal edema. NEUROLOGICAL: Gross neurological examination did not reveal any focal deficits. SKIN: No rashes. no petechiae. Results CBC & Chem 7: 10/07/23 12:29 10/07/23 12:29 Labs: Abnormal Lab Results - Last 24 Hours (Table) 10/07/23 10/07/23 10/07/23 Range/Units 12:10 12:29 12:29 WBC 12.5 H (3.8-10.6) k/uL Hgb 12.5 L (13.0-17.5) gm/dL Hct 38.4 L (39.0-53.0) % Neutrophils # 10.4 H (1.3-7.7) k/uL Lymphocytes # 0.9 L (1.0-4.8) k/uL Carbon Dioxide (22-30) mmol/L Glucose (74-99) mg/dL POC Glucose (mg/dL) 199 H (70-110) mg/dL Plasma Lactic Acid Lior (0.7-2.0) mmol/L Creatine Kinase (55-170) U/L TSH (0.465-4.680) mIU/L Free T4 (0.78-2.19) ng/dL Urine Protein 2+ H (Negative) Urine Glucose (UA) 3+ H (Negative) Urine Ketones 2+ H (Negative) Urine Blood Trace H (Negative) Urine Bacteria Rare H (None) /hpf Urine Mucus Rare H (None) /hpf SARS-CoV-2 (PCR) (Not Detectd) 10/07/23 10/07/23 10/07/23 Range/Units 12:29 12:29 14:34 WBC (3.8-10.6) k/uL Hgb (13.0-17.5) gm/dL Hct (39.0-53.0) % Neutrophils # (1.3-7.7) k/uL Lymphocytes # (1.0-4.8) k/uL Carbon Dioxide 21 L (22-30) mmol/L Glucose 200 H (74-99) mg/dL POC Glucose (mg/dL) (70-110) mg/dL Plasma Lactic Acid Lior 2.3 H* (0.7-2.0) mmol/L Creatine Kinase 219 H (55-170) U/L TSH 6.120 H (0.465-4.680) mIU/L Free T4 2.29 H (0.78-2.19) ng/dL Urine Protein (Negative) Urine Glucose (UA) (Negative) Urine Ketones (Negative) Urine Blood (Negative) Urine Bacteria (None) /hpf Urine Mucus (None) /hpf SARS-CoV-2 (PCR) Detected A (Not Detectd) Assessment and Plan Assessment: Covid infection without overt pneumonia Fever most likely secondary to Covid infection of bacterial superinfection Possible acute Covid gastroenteritis with ileus sepsis with fever and leukocytosis Generalized weakness and malaise secondary to above Mild metabolic encephalopathy Diabetes mellitus, with hyperglycemia Hypothyroidism With high TSH, POA Hypertension Hyperlipidemia History of osteoarthritis Hypothyroidism History of coronary artery disease status post CABG Chronic heart failure, unknown ejection fraction History of syncope History of right lacunar infarct Bipolar, PTSD, not an active issue Plan: Start vitamin D, vitamin C and zinc Check inflammatory markers. Follow-up pro-calcitonin Continue with IV hydration Repeat KUB in the morning Insulin sliding scale Possible acute Covid gastroenteritis with ileus Labs and medication were reviewed.. Continue same treatment. Continue with symptomatic treatment. Resume home medication. Monitor lytes and vitals. DVT and GI prophylaxis. Further recommendations depends on the clinical course of the patient DVT prophylaxis: Subcutaneous Lovenox GI Prophylaxis: Pepcid Prognosis is guarded
[2023-10-07] MEDS: CHOLECALCIFEROL 25 MCG (1000 IU) TABLET PO SCH (18:17)
[2023-10-07 18:27] LABS: C Reactive Protein 6.5 mg/dL (<1.0)
[2023-10-07 20:27] LABS: Glucose,Whole Blood 167 mg/dL (70-110)
[2023-10-07] MEDS: METOPROLOL TARTRATE 12.5 MG TAB PO SCH (21:51)
[2023-10-07] MEDS: ATORVASTATIN 40 MG TAB PO SCH (21:51)
[2023-10-07] MEDS ORDERED: metFORMIN 500 MG TAB PO SCH (22:00)
[2023-10-08] MEDS: SODIUM CHLORIDE 0.9% 1,000 ML IV SCH ×2 (03:55→08:54)
[2023-10-08] MEDS ORDERED: ZINC OXIDE PASTE (Z-GUARD) 1 APPLIC APPLIC TOPICAL PRN (04:08)
[2023-10-08 05:53] LABS: Glucose,Whole Blood 265 mg/dL (70-110)
[2023-10-08] MEDS ORDERED: LEVOTHYROXINE 112 MCG TAB PO SCH (06:30)
[2023-10-08] MEDS: INSULIN ASPART (NovoLOG) 100 UNIT/ML VIAL SQ SCH ×3 (06:32→17:00)
[2023-10-08] MEDS: LEVOTHYROXINE 100 MCG TAB PO SCH (06:33)
[2023-10-08] MEDS: PANTOPRAZOLE 40 MG TABLET PO SCH (06:33)
[2023-10-08 07:59] LABS: African American GFR (CKD) >90 (>60 ml/min/1.73 sqM); Anion Gap 18 mmol/L; Blood Urea Nitrogen 17 mg/dL (9-20); Calcium 8.1 mg/dL (8.4-10.2); Carbon Dioxide 13 mmol/L (22-30); Chloride 105 mmol/L (98-107); Glucose 264 mg/dL (74-99); Non-African American GFR(CKD) 84 (>60 ml/min/1.73 sqM); Sodium 136 mmol/L (137-145)
[2023-10-08] MEDS: METOPROLOL TARTRATE 12.5 MG TAB PO SCH ×2 (08:53→21:09)
[2023-10-08] MEDS: amLODIPine 10 MG TAB PO SCH (08:53)
[2023-10-08] MEDS: ZINC SULFATE 220 MG CAP PO SCH (08:53)
[2023-10-08] MEDS: CHOLECALCIFEROL 25 MCG (1000 IU) TABLET PO SCH (08:53)
[2023-10-08] MEDS: ASCORBIC ACID 500 MG TAB PO SCH (08:53)
[2023-10-08] MEDS ORDERED: ENOXAPARIN 40 MG/0.4 ML SYRINGE SQ SCH (09:00)
[2023-10-08 09:27] LABS: Basophils % (A) 0 %; Eosinophils % (A) 0 %; HCT 36.4 % (39.0-53.0); HGB 11.7 gm/dL (13.0-17.5); Hypochromasia Slight; Lymphocytes # (A) 0.7 k/uL (1.0-4.8); Lymphocytes % (A) 5 %; MCH 28.9 pg (25.0-35.0); MCHC 32.1 g/dL (31.0-37.0); MCV 89.8 fL (80.0-100.0); Mean Platelet Volume 7.8; Monocytes # (A) 0.8 k/uL (0-1.0); Monocytes % (A) 5 %; Neutrophils # (A) 12.4 k/uL (1.3-7.7); Neutrophils % (A) 88 %; Platelet Count 307 k/uL (150-450); RBC 4.05 m/uL (4.30-5.90); RDW 14.9 % (11.5-15.5); WBC 14.1 k/uL (3.8-10.6)
--- NOTE | 2023-10-08 09:53 | XR ---
EXAMINATION TYPE: XR KUB portable DATE OF EXAM: 10/08/2023 COMPARISON: 10/07/23 HISTORY: Pain TECHNIQUE: Single supine KUB image of the abdomen is obtained FINDINGS: Persistent mild distention of small bowel. Orally for ileus. Large bowel is of normal caliber. No con vincing evidence for pneumoperitoneum. No unusual calcifications. The lung bases are clear. The osseous structures are intact. IMPRESSION: 1. Persistent mild distention of small bowel. Orally for ileus. Large bowel is of normal caliber.
[2023-10-08 11:50] LABS: Glucose,Whole Blood 265 mg/dL (70-110)
--- NOTE | 2023-10-08 12:03 | P.PN ---
Subjective This is a pleasant 72 years old male [facility] with past medical history of Coronary Artery Disease status post CABG , Heart Failure, Diabetes Mellitus, Hyperlipidemia, Hypertension, Syncope, thyroid disease, CT of the brain in September 2017 demonstrated old right lacunar infarct, Bipolar, PTSD. PCP is Dr. 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 He denies chest pain dyspnea or coughing No vomiting but he has somewhat poor appetite He denies dysuria , but there was concern about urgency as he was wetting himself as per officer at bedside while he was in care home. No no headache dizziness weakness or numbness in extremities. He denies smoking alcohol or illicit drugs Patient has a fever of 102, Postoperative vitals are stable, he is mildly tachycardic but saturating 97% on room air showing mild leukocytosis 12.5, hemoglobin 12.5, platelet count normal. He has some evidence of lymphopenia 0.9 and left shift with neutrophilia at 10.4%. INR 1.0. BMP is unremarkable. Carbon dioxide 21. Glucose elevated at 200. Lactic acid 2.3 which is mildly elevated. Liver enzymes are unremarkable, ammonia, creatinine kinase and troponin are all negative. ProBNP is 3430. Urine analysis showing 2+ protein, 3+ glucose, 2+ ketones with no evidence of infection. Acetone is positive. Influenza and RSV are negative but Covid test came back positive Chest x-ray: No acute cardiopulmonary process CT of the brain: No acute process. Atrophy KUB:Nonspecific bowel gas pattern, may represent fecal stasis/ileus. If there is persistent concern, follow-up radiographs or CT may be considered. Generous him to IV fluids and Rocephin in the emergency room 10/08/2023 Patient today looks more comfortable more relaxed compared to severe pallor and weakness yesterday. He still feels generally weak. However other symptoms she had yesterday looks improving He tolerated his regular diet this morning with breakfast, he denies abdominal pain or tenderness however his abdomen is still mildly distended, he said that he has 2-3 bowel movement last night but no diarrhea. Or improvement. He denies specific urinary complaints and his urine analysis is not suspicious of infection. His fever on admission has subsided. And dorsal Vitas looks stable. He is on room air. WBC slightly worse 14,000, hemoglobin 11.7, creatinine normal At 0.9. LDH 235 which is within the reference range and CRP mildly elevated at 6.5 as well as Pro-calcitonin 0.23 Repeat KUB today showing a still persistent ileus therefore going to order CT of the abdomen and pelvis and place him on liquid diet. Patient continued on normal saline 100 mL/h, vitamin C, vitamin D zinc, Lovenox and Protonix Review of systems CONSTITUTIONAL: No fever, no malaise, no fatigue. HEENT: No recent visual problems or hearing problems. Denied any sore throat. CARDIOVASCULAR: No orthopnea, PND, no palpitations, no syncope. PULMONARY: No shortness of breath, no cough, no hemoptysis. GASTROINTESTINAL: No diarrhea, no nausea, no vomiting, no abdominal pain. Normoactive bowel sounds. NEUROLOGICAL: No headaches, no weakness, no numbness. HEMATOLOGICAL: Denies any bleeding or petechiae. GENITOURINARY: Denies any burning micturition, frequency, or urgency. MUSCULOSKELETAL/RHEUMATOLOGICAL: Denies any joint pain, swelling, or any muscle pain. ENDOCRINE: Denies any polyuria or polydipsia. Active Medications Generic Name Dose Route Start Last Admin Trade Name Freq PRN Reason Stop Dose Admin Acetaminophen 650 mg 10/07/23 17:31 Acetaminophen Tab 325 Mg Tab PO Q6HR PRN Mild Pain or Fever > 100.5 Amlodipine Besylate 10 mg 10/08/23 09:00 10/08/23 08:53 Amlodipine 10 Mg Tab PO 10 mg DAILY JOLYNN Administration Ascorbic Acid 1,000 mg 10/08/23 09:00 10/08/23 08:53 Ascorbic Acid 500 Mg Tab PO 1,000 mg DAILY JOLYNN Administration Atorvastatin Calcium 40 mg 10/07/23 21:00 10/07/23 21:51 Atorvastatin 40 Mg Tab PO 40 mg HS JOLYNN Administration Cholecalciferol 50 mcg 10/07/23 18:00 10/08/23 08:53 Cholecalciferol 25 Mcg (1000 Iu) Tablet PO 50 mcg DAILY JOLYNN Administration Dextrose/Water 25 ml 10/07/23 17:40 Dextrose 50% Syringe 50 Ml IVP PER PROTOCOL PRN Hypoglycemia Protocol Dextrose/Water 50 ml 10/07/23 17:40 Dextrose 50% Syringe 50 Ml IVP PER PROTOCOL PRN Hypoglycemia Protocol Enoxaparin Sodium 40 mg 10/08/23 09:00 10/08/23 08:53 Enoxaparin 40 Mg/0.4 Ml Syringe SQ 40 mg DAILY JOLYNN Administration Sodium Chloride 1,000 mls @ 100 mls/hr 10/07/23 17:45 10/08/23 08:54 Saline 0.9% IV 100 mls/hr .Q10H JOLYNN Administration Insulin Aspart 11 unit 10/08/23 07:30 10/08/23 06:32 Insulin Aspart (Novolog) 100 Unit/Ml Vial 0.1 unit/kg (11 unit) 11 unit SQ Administration AC-TID JOLYNN Iopamidol 30 ml 10/08/23 11:44 Iopamidol Contrast (Oral Use) Vial PO 10/09/23 11:[address] Scan Levothyroxine Sodium 100 mcg 10/08/23 06:30 10/08/23 06:33 Levothyroxine 100 Mcg Tab PO 100 mcg DAILY@0630 JOLYNN Administration Metoprolol Tartrate 12.5 mg 10/07/23 21:00 10/08/23 08:53 Metoprolol Tartrate 12.5 Mg Tab PO 12.5 mg BID JOLYNN Administration Naloxone HCl 0.2 mg 10/07/23 17:31 Naloxone 0.4 Mg/Ml 1 Ml Vial IV Q2M PRN Opioid Reversal Pantoprazole Sodium 40 mg 10/08/23 07:30 10/08/23 06:33 Pantoprazole 40 Mg Tablet PO 40 mg [id number] JOLYNN Administration Petrolatum 1 applic 10/08/23 04:08 Zinc Oxide Paste (Z-Guard) 1 Applic Applic TOPICAL Q2HR PRN Wound Healing Zinc Sulfate 220 mg 10/08/23 09:00 10/08/23 08:53 Zinc Sulfate 220 Mg Cap PO 220 mg DAILY JOLYNN Administration Objective - Vital Signs Vital signs: Vital Signs Temp 98.6 F 10/08/23 07:50 Pulse 101 H 10/08/23 07:50 Resp 17 10/08/23 07:50 BP 106/62 10/08/23 07:50 Pulse Ox 96 10/08/23 07:50 FiO2 Intake & Output 10/07/23 10/08/23 10/08/23 18:59 06:59 18:59 Weight 107.501 kg Other: Voiding Method External Catheter External Catheter # Voids 1 - Exam GENERAL: The patient is alert and oriented x3, not in any acute distress. Well developed, well nourished. HEENT: Pupils are round and equally reacting to light. EOMI. No scleral icterus. No conjunctival pallor. Normocephalic, atraumatic. No pharyngeal erythema. No thyromegaly. CARDIOVASCULAR: S1 and S2 present. No murmurs, rubs, or gallops. PULMONARY: Chest is clear to auscultation, no wheezing , no crackles. -ABDOMEN: Soft, nontender, mildly distended, normoactive bowel sounds. No palpable organomegaly. MUSCULOSKELETAL: No joint swelling or deformity. EXTREMITIES: No cyanosis, clubbing, or pedal edema. NEUROLOGICAL: Gross neurological examination did not reveal any focal deficits. SKIN: No rashes. no petechiae. - Labs CBC & Chem 7: 10/08/23 07:17 10/08/23 07:17 Labs: Abnormal Lab Results - Last 24 Hours (Table) 10/07/23 10/07/23 10/07/23 Range/Units 12:10 12:29 12:29 WBC 12.5 H (3.8-10.6) k/uL RBC (4.30-5.90) m/uL Hgb 12.5 L (13.0-17.5) gm/dL Hct 38.4 L (39.0-53.0) % Neutrophils # 10.4 H (1.3-7.7) k/uL Lymphocytes # 0.9 L (1.0-4.8) k/uL Sodium (137-145) mmol/L Carbon Dioxide (22-30) mmol/L Glucose (74-99) mg/dL POC Glucose (mg/dL) 199 H (70-110) mg/dL Plasma Lactic Acid Lior (0.7-2.0) mmol/L Calcium (8.4-10.2) mg/dL Creatine Kinase (55-170) U/L C-Reactive Protein (<1.0) mg/dL Procalcitonin (0.02-0.09) ng/mL TSH (0.465-4.680) mIU/L Free T4 (0.78-2.19) ng/dL Urine Protein 2+ H (Negative) Urine Glucose (UA) 3+ H (Negative) Urine Ketones 2+ H (Negative) Urine Blood Trace H (Negative) Urine Bacteria Rare H (None) /hpf Urine Mucus Rare H (None) /hpf SARS-CoV-2 (PCR) (Not Detectd) 10/07/23 10/07/23 10/07/23 Range/Units 12:29 12:29 14:34 WBC (3.8-10.6) k/uL RBC (4.30-5.90) m/uL Hgb (13.0-17.5) gm/dL Hct (39.0-53.0) % Neutrophils # (1.3-7.7) k/uL Lymphocytes # (1.0-4.8) k/uL Sodium (137-145) mmol/L Carbon Dioxide 21 L (22-30) mmol/L Glucose 200 H (74-99) mg/dL POC Glucose (mg/dL) (70-110) mg/dL Plasma Lactic Acid Lior 2.3 H* (0.7-2.0) mmol/L Calcium (8.4-10.2) mg/dL Creatine Kinase 219 H (55-170) U/L C-Reactive Protein (<1.0) mg/dL Procalcitonin (0.02-0.09) ng/mL TSH 6.120 H (0.465-4.680) mIU/L Free T4 2.29 H (0.78-2.19) ng/dL Urine Protein (Negative) Urine Glucose (UA) (Negative) Urine Ketones (Negative) Urine Blood (Negative) Urine Bacteria (None) /hpf Urine Mucus (None) /hpf SARS-CoV-2 (PCR) Detected A (Not Detectd) 10/07/23 10/07/23 10/07/23 Range/Units 14:34 17:45 17:46 WBC (3.8-10.6) k/uL RBC (4.30-5.90) m/uL Hgb (13.0-17.5) gm/dL Hct (39.0-53.0) % Neutrophils # (1.3-7.7) k/uL Lymphocytes # (1.0-4.8) k/uL Sodium (137-145) mmol/L Carbon Dioxide (22-30) mmol/L Glucose (74-99) mg/dL POC Glucose (mg/dL) 121 H (70-110) mg/dL Plasma Lactic Acid Lior (0.7-2.0) mmol/L Calcium (8.4-10.2) mg/dL Creatine Kinase (55-170) U/L C-Reactive Protein 6.5 H (<1.0) mg/dL Procalcitonin 0.23 H (0.02-0.09) ng/mL TSH (0.465-4.680) mIU/L Free T4 (0.78-2.19) ng/dL Urine Protein (Negative) Urine Glucose (UA) (Negative) Urine Ketones (Negative) Urine Blood (Negative) Urine Bacteria (None) /hpf Urine Mucus (None) /hpf SARS-CoV-2 (PCR) (Not Detectd) 10/07/23 10/08/23 10/08/23 Range/Units 20:25 05:50 07:17 WBC 14.1 H (3.8-10.6) k/uL RBC 4.05 L (4.30-5.90) m/uL Hgb 11.7 L (13.0-17.5) gm/dL Hct 36.4 L (39.0-53.0) % Neutrophils # 12.4 H (1.3-7.7) k/uL Lymphocytes # 0.7 L (1.0-4.8) k/uL Sodium (137-145) mmol/L Carbon Dioxide (22-30) mmol/L Glucose (74-99) mg/dL POC Glucose (mg/dL) 167 H 265 H (70-110) mg/dL Plasma Lactic Acid Lior (0.7-2.0) mmol/L Calcium (8.4-10.2) mg/dL Creatine Kinase (55-170) U/L C-Reactive Protein (<1.0) mg/dL Procalcitonin (0.02-0.09) ng/mL TSH (0.465-4.680) mIU/L Free T4 (0.78-2.19) ng/dL Urine Protein (Negative) Urine Glucose (UA) (Negative) Urine Ketones (Negative) Urine Blood (Negative) Urine Bacteria (None) /hpf Urine Mucus (None) /hpf SARS-CoV-2 (PCR) (Not Detectd) 10/08/23 10/08/23 Range/Units 07:17 11:48 WBC (3.8-10.6) k/uL RBC (4.30-5.90) m/uL Hgb (13.0-17.5) gm/dL Hct (39.0-53.0) % Neutrophils # (1.3-7.7) k/uL Lymphocytes # (1.0-4.8) k/uL Sodium 136 L (137-145) mmol/L Carbon Dioxide 13 L (22-30) mmol/L Glucose 264 H (74-99) mg/dL POC Glucose (mg/dL) 265 H (70-110) mg/dL Plasma Lactic Acid Lior (0.7-2.0) mmol/L Calcium 8.1 L (8.4-10.2) mg/dL Creatine Kinase (55-170) U/L C-Reactive Protein (<1.0) mg/dL Procalcitonin (0.02-0.09) ng/mL TSH (0.465-4.680) mIU/L Free T4 (0.78-2.19) ng/dL Urine Protein (Negative) Urine Glucose (UA) (Negative) Urine Ketones (Negative) Urine Blood (Negative) Urine Bacteria (None) /hpf Urine Mucus (None) /hpf SARS-CoV-2 (PCR) (Not Detectd) Assessment and Plan Assessment: Covid infection without overt pneumonia Fever most likely secondary to Covid infection or bacterial rinfection Possible acute Covid gastroenteritis with ileus , vs others sepsis with fever and leukocytosis Generalized weakness and malaise secondary to above Mild metabolic encephalopathy Diabetes mellitus, with hyperglycemia Hypothyroidism With high TSH, POA Hypertension Hyperlipidemia History of osteoarthritis Hypothyroidism History of coronary artery disease status post CABG Chronic heart failure, unknown ejection fraction History of syncope History of right lacunar infarct Bipolar, PTSD, not an active issue Plan: Start vitamin D, vitamin C and zinc Continue with IV hydration CT of the abdomen and pelvis ordered consult ID And surgery teams Insulin sliding scale continue with lower dose of levothyroxine 100 g daily ( previously was 112 g daily) Labs and medication were reviewed.. Continue same treatment. Continue with symptomatic treatment. Resume home medication. Monitor lytes and vitals. DVT and GI prophylaxis. Further recommendations depends on the clinical course of the patient DVT prophylaxis: Subcutaneous Lovenox GI Prophylaxis: Ppi Prognosis is guarded
[2023-10-08] MEDS: IOPAMIDOL CONTRAST (ORAL USE) VIAL PO PRN ×2 (12:42→13:49)
[2023-10-08 14:00] LABS: Glucose,Whole Blood 245 mg/dL (70-110)
--- NOTE | 2023-10-08 14:05 | P.GSCN ---
History of Present Illness Consult date: 10/08/23 History of present illness: CHIEF COMPLAINT: Weakness and confusion HISTORY OF PRESENT ILLNESS: this is a 72-year-old male who presented to hospital with weakness, fever and confusion. He is diagnosed with COVID 19. [facility] is from the shelter. He has officer at bedside. Patient is lying in bed comfortably. He reports that he's been doing with diarrhea and last bowel movement was about 2 hours ago. He denies any abdominal pain. Denies any blood in his stool. Denies any nausea or vomiting. Reports his last colonoscopy was about a year ago. He denies any prior history of bowel obstructions. Denies any surgery on abdomen. KUB x-ray had shown ileus. Medicines service has ordered a computed tomography scan abdomen and pelvis and consulted to surgical service in regards to patient's ileus. PAST MEDICAL HISTORY: gastroparesis, autonomic dysfunction, CKD/hemodialysis on /, BPH, hypotension at times, vertigo when first stands, RUSS/does not wear his cpap, bilateral glaucoma/retinal problems , anemia, torn right rotator cuff., pain left arm,neck and back., pt has recurrent UTI, indwelling gu catheter, lacunar infarct, bipolar and PTSD PAST SURGICAL HISTORY: CABG MEDICATIONS: See below ALLERGIES: See below SOCIAL HISTORY: No illicit drug use. REVIEW OF SYSTEMS: CONSTITUTIONAL: Denies fever or chills. HEENT: Denies blurred vision, vision changes, or eye pain. Denies hemoptysis CARDIOVASCULAR: Denies chest pain or pressure. RESPIRATORY: No shortness of breath. GASTROINTESTINAL: See HPI for pertinent findings HEMATOLOGIC: Denies bleeding disorders. GENITOURINARY: Denies any blood in urine or increased urinary frequency. SKIN: Denies pruitis. Denies rash. PHYSICAL EXAM: VITAL SIGNS: Reviewed GENERAL: Well-developed in no acute distress. ABDOMEN: Soft. mildly distended. Nontender NEUROLOGIC: Alert and oriented. Cranial nerves II through XII grossly intact. LABORATORY DATA: WBC 12.5 up to 14.1 Hgb 11.7 [id number] Na 136 K 5.0 cr 0.92 glucose 265 lactic acid 2.3-1.3 Acetone positive Covid Detected IMAGING: KUB x-ray 10/07/2023 reports a nonspecific bowel gas pattern may represent fecal stasis/ileus. KUB x-ray from 10/08/2023 persistent mild distention of small bowel. Correlate for ileus. Large bowel is of normal caliber. Chest x-ray negative ASSESSMENT: 1. Ileus likely due to COVID infection 2. COVID infection 3. Diarrhea PLAN: -Follow up on Abdominal CT scan ordered by medicine service -Continue Clear liquids for now -Continue supportive care thank you for this consultation Physician Warp Clamper note has been reviewed by physician. Signing provider agrees with the documented findings, assessment, and plan of care. Past Medical History Past Medical History: Coronary Artery Disease (CAD), Heart Failure, Diabetes Mellitus, Hyperlipidemia, Hypertension, Myocardial Infarction ([place]), Syncope, Thyroid Disorder Additional Past Medical History / Comment(s): CT of the brain in September 2017 demonstrated old right lacunar infarct Last Myocardial Infarction Date:: 12/06/2018 History of Any Multi-Drug Resistant Organisms: None Reported Past Surgical History: Coronary Bypass/CABG, Orthopedic Surgery Additional Past Surgical History / Comment(s): right hip Past Anesthesia/Blood Transfusion Reactions: No Reported Reaction Past Psychological History: Bipolar, PTSD Smoking Status: Never smoker Past Alcohol Use History: None Reported Past Drug Use History: None Reported - Past Family History Father Family Medical History: No Reported History Mother History Unknown: Yes Family Medical History: No Reported History Medications and Allergies Home Medications Medication Instructions Recorded Confirmed Type metFORMIN HCL 500 mg PO TID 02/06/19 10/07/23 History Atorvastatin [Lipitor] 40 mg PO HS 10/09/19 10/07/23 History amLODIPine [Norvasc] 10 mg PO DAILY #30 tab 11/09/22 10/07/23 Rx Levothyroxine Sodium [Synthroid] 112 mcg PO DAILY 09/16/23 10/07/23 History Metoprolol Tartrate [Lopressor] 12.5 mg PO BID 09/16/23 10/07/23 History Insulin Regular, Human [Novolin R] See Protocol SQ ACHS 10/07/23 10/07/23 History Pantoprazole [Protonix] 40 mg PO DAILY 10/07/23 10/07/23 History Allergies Allergy/AdvReac Type Severity Reaction Status Date / Time No Known Allergies Allergy Verified 10/07/23 17:39 Surgical - Exam Vital Signs Temp Pulse Resp BP Pulse Ox 97.9 F 112 H 2 L 135/83 97 10/07/23 11:59 10/07/23 11:59 10/07/23 11:59 10/07/23 11:59 10/07/23 11:59 Results - Labs 10/08/23 07:17 10/08/23 07:17 Abnormal Lab Results - Last 24 Hours (Table) 10/07/23 10/07/23 10/07/23 Range/Units 12:29 12:29 14:34 WBC (3.8-10.6) k/uL RBC (4.30-5.90) m/uL Hgb (13.0-17.5) gm/dL Hct (39.0-53.0) % Neutrophils # (1.3-7.7) k/uL Lymphocytes # (1.0-4.8) k/uL Sodium (137-145) mmol/L Carbon Dioxide 21 L (22-30) mmol/L Glucose 200 H (74-99) mg/dL POC Glucose (mg/dL) (70-110) mg/dL Calcium (8.4-10.2) mg/dL Creatine Kinase 219 H (55-170) U/L C-Reactive Protein (<1.0) mg/dL Procalcitonin (0.02-0.09) ng/mL TSH 6.120 H (0.465-4.680) mIU/L Free T4 2.29 H (0.78-2.19) ng/dL Urine Protein 2+ H (Negative) Urine Glucose (UA) 3+ H (Negative) Urine Ketones 2+ H (Negative) Urine Blood Trace H (Negative) Urine Bacteria Rare H (None) /hpf Urine Mucus Rare H (None) /hpf SARS-CoV-2 (PCR) Detected A (Not Detectd) 10/07/23 10/07/23 10/07/23 Range/Units 14:34 17:45 17:46 WBC (3.8-10.6) k/uL RBC (4.30-5.90) m/uL Hgb (13.0-17.5) gm/dL Hct (39.0-53.0) % Neutrophils # (1.3-7.7) k/uL Lymphocytes # (1.0-4.8) k/uL Sodium (137-145) mmol/L Carbon Dioxide (22-30) mmol/L Glucose (74-99) mg/dL POC Glucose (mg/dL) 121 H (70-110) mg/dL Calcium (8.4-10.2) mg/dL Creatine Kinase (55-170) U/L C-Reactive Protein 6.5 H (<1.0) mg/dL Procalcitonin 0.23 H (0.02-0.09) ng/mL TSH (0.465-4.680) mIU/L Free T4 (0.78-2.19) ng/dL Urine Protein (Negative) Urine Glucose (UA) (Negative) Urine Ketones (Negative) Urine Blood (Negative) Urine Bacteria (None) /hpf Urine Mucus (None) /hpf SARS-CoV-2 (PCR) (Not Detectd) 10/07/23 10/08/23 10/08/23 Range/Units 20:25 05:50 07:17 WBC 14.1 H (3.8-10.6) k/uL RBC 4.05 L (4.30-5.90) m/uL Hgb 11.7 L (13.0-17.5) gm/dL Hct 36.4 L (39.0-53.0) % Neutrophils # 12.4 H (1.3-7.7) k/uL Lymphocytes # 0.7 L (1.0-4.8) k/uL Sodium (137-145) mmol/L Carbon Dioxide (22-30) mmol/L Glucose (74-99) mg/dL POC Glucose (mg/dL) 167 H 265 H (70-110) mg/dL Calcium (8.4-10.2) mg/dL Creatine Kinase (55-170) U/L C-Reactive Protein (<1.0) mg/dL Procalcitonin (0.02-0.09) ng/mL TSH (0.465-4.680) mIU/L Free T4 (0.78-2.19) ng/dL Urine Protein (Negative) Urine Glucose (UA) (Negative) Urine Ketones (Negative) Urine Blood (Negative) Urine Bacteria (None) /hpf Urine Mucus (None) /hpf SARS-CoV-2 (PCR) (Not Detectd) 10/08/23 10/08/23 Range/Units 07:17 11:48 WBC (3.8-10.6) k/uL RBC (4.30-5.90) m/uL Hgb (13.0-17.5) gm/dL Hct (39.0-53.0) % Neutrophils # (1.3-7.7) k/uL Lymphocytes # (1.0-4.8) k/uL Sodium 136 L (137-145) mmol/L Carbon Dioxide 13 L (22-30) mmol/L Glucose 264 H (74-99) mg/dL POC Glucose (mg/dL) 265 H (70-110) mg/dL Calcium 8.1 L (8.4-10.2) mg/dL Creatine Kinase (55-170) U/L C-Reactive Protein (<1.0) mg/dL Procalcitonin (0.02-0.09) ng/mL TSH (0.465-4.680) mIU/L Free T4 (0.78-2.19) ng/dL Urine Protein (Negative) Urine Glucose (UA) (Negative) Urine Ketones (Negative) Urine Blood (Negative) Urine Bacteria (None) /hpf Urine Mucus (None) /hpf SARS-CoV-2 (PCR) (Not Detectd) Diabetes panel 10/07/23 10/08/23 Range/Units 12:29 07:17 Sodium 138 136 L (137-145) mmol/L Potassium 5.1 5.0 (3.5-5.1) mmol/L Chloride 102 105 (98-107) mmol/L Carbon Dioxide 21 L 13 L (22-30) mmol/L BUN 16 17 (9-20) mg/dL Creatinine 1.02 0.92 (0.66-1.25) mg/dL Glucose 200 H 264 H (74-99) mg/dL Calcium 9.1 8.1 L (8.4-10.2) mg/dL AST 33 (17-59) U/L ALT 20 (4-49) U/L Alkaline Phosphatase 82 (38-126) U/L Total Protein 7.6 (6.3-8.2) g/dL Albumin 4.1 (3.5-5.0) g/dL Thyroid panel 10/07/23 Range/Units 12:29 TSH 6.120 H (0.465-4.680) mIU/L Calcium panel 10/07/23 10/08/23 Range/Units 12:29 07:17 Calcium 9.1 8.1 L (8.4-10.2) mg/dL Albumin 4.1 (3.5-5.0) g/dL Pituitary panel 10/07/23 10/08/23 Range/Units 12: 07:17 Sodium 138 136 L (137-145) mmol/L Potassium 5.1 5.0 (3.5-5.1) mmol/L Chloride 102 105 (98-107) mmol/L Carbon Dioxide 21 L 13 L (22-30) mmol/L BUN 16 17 (9-20) mg/dL Creatinine 1.02 0.92 (0.66-1.25) mg/dL Glucose 200 H 264 H (74-99) mg/dL Calcium 9.1 8.1 L (8.4-10.2) mg/dL TSH 6.120 H (0.465-4.680) mIU/L Adrenal panel 10/07/23 10/08/23 Range/Units 12: 07:17 Sodium 138 136 L (137-145) mmol/L Potassium 5.1 5.0 (3.5-5.1) mmol/L Chloride 102 105 (98-107) mmol/L Carbon Dioxide 21 L 13 L (22-30) mmol/L BUN 16 17 (9-20) mg/dL Creatinine 1.02 0.92 (0.66-1.25) mg/dL Glucose 200 H 264 H (74-99) mg/dL Calcium 9.1 8.1 L (8.4-10.2) mg/dL Total Bilirubin 0.5 (0.2-1.3) mg/dL AST 33 (17-59) U/L ALT 20 (4-49) U/L Alkaline Phosphatase 82 (38-126) U/L Total Protein 7.6 (6.3-8.2) g/dL Albumin 4.1 (3.5-5.0) g/dL
--- NOTE | 2023-10-08 15:29 | CT ---
EXAMINATION TYPE: CT abdomen pelvis w con CT DLP: 2348.4 mGycm, Automated exposure control for dose reduction was used. DATE OF EXAM: 10/08/2023 3:21 PM COMPARISON: [facility]UB 10/08/2023, 10/07/2023, CT abdomen pelvis 11/08/2022 CLINICAL INDICATION:Male, 72 years old with history of ileus; abdominal pain TECHNIQUE: Standard CT of the abdomen and pelvis following the administration of 100 cc of Isovue 3 00 IV contrast material and oral contrast. Coronal and sagittal reformats were performed. FINDINGS: Motion degraded examination. LOWER CHEST: Linear atelectasis within the right lung base. Coronary artery calcifications and/or adalid nts. Mild cardiac megaly. ABDOMEN LIVER: Diffusely hypoattenuating parenchyma. GALLBLADDER AND BILE DUCTS: Unremarkable. PANCREAS: Unremarkable. SPLEEN: Unremarkable. ADRENAL GLANDS: Unremarkable. KIDNEYS AND URETERS: No evidence of hydronephrosis or renal calculus. The kidneys enhance symmetrical ly. PELVIS BLADDER: The urinary bladder with circumferential wall thickening. REPRODUCTIVE: Unremarkable. ABDOMEN & PELVIS STOMACH AND BOWEL: Stomach and duodenum are unremarkable. Cervical ventral wall thickening of the asc ending colon. Enteric contrast reaches the mid small bowel. The appendix is within normal limits. No evidence of bowel obstruction. PERITONEUM: No evidence of pneumoperitoneum or free fluid. VASCULATURE: Mild atherosclerotic calcifications are present throughout the abdominal aorta and its b ranches. No evidence of aortic aneurysm. MUSCULOSKELETAL: No acute osseous abnormalities. Median sternotomy wires. Post fixation changes of th e right acetabulum. Mild degenerative changes of the thoracolumbar spine. LYMPH NODES: No gross evidence for lymphadenopathy. SOFT TISSUE/ABDOMINAL WALL: Unremarkable IMPRESSION: Motion degraded examination. 1. Colitis involving the ascending colon likely from an infectious/inflammatory etiology. No bowel di latation to suggest obstruction or ileus. 2. Circumferential wall thickening of the urinary bladder which may be due to under distention versus cystitis. Correlate with urinalysis. Next line 3. Hepatic steatosis.
[2023-10-08 16:08] LABS: Glucose,Whole Blood 175 mg/dL (70-110)
[2023-10-08 19:09] LABS: Glucose,Whole Blood 102 mg/dL (70-110)
[2023-10-08] MEDS: ATORVASTATIN 40 MG TAB PO SCH (21:09)
[2023-10-09] MEDS: PIPERACILLIN-TAZOBACTAM 3.375 GM in SODIUM CHLORIDE 0.9% 100 ML IVPB SCH ×3 (00:31→16:59)
[2023-10-09] MEDS: SODIUM CHLORIDE 0.9% 1,000 ML IV SCH ×2 (00:32→09:54)
[2023-10-09] MEDS: PANTOPRAZOLE 40 MG TABLET PO SCH (05:48)
[2023-10-09] MEDS: LEVOTHYROXINE 100 MCG TAB PO SCH (05:48)
[2023-10-09 05:50] LABS: Glucose,Whole Blood 206 mg/dL (70-110)
[2023-10-09] MEDS: INSULIN ASPART (NovoLOG) 100 UNIT/ML VIAL SQ SCH ×3 (05:51→16:59)
--- NOTE | 2023-10-09 07:04 | P.CONS ---
History of Present Illness - Reason for Consult Consult date: 10/08/23 Fever Requesting physician: Demetris E Sheet - Chief Complaint Generalized weakness x few days - History of Present Illness Patient is a 72-year-old male with a past medical history significant for diabetes mellitus hypertension hyperlipidemia coronary disease MS bipolar and PTSD patient was brought into the hospital yesterday afternoon from the local halfway for evaluation of generalized weakness decreased activity decreased oral intake and incontinence of stool symptom has been progressing over the last 4 days patient denies any headache or URI symptoms no chest pain shortness of breath or cough no nausea vomiting no abdominal pain he is having diarrhea howev er he was not able to tell me more about how many times or if any blood or mucus in the stool and is not very clear if he has received any antibiotics recently for any other reason patient on presentation to the hospital initially was afebrile subsequently spiked a fever of 102.8 degrees: Right patient did have a tachycardia but not hypotensive or hypoxic and no need for supplemental oxygen patient did have a white count of 12.5 which is up to 14.1 today kidney function has been normal liver enzymes are normal CRP was 6.5 urine has been negative patient did tested positive for COVID influenza RSV was negative patient did have a chest x-ray no acute cardiopulmonary disease process patient also have a CT of abdominal pelvis completed this afternoon with diffuse colitis involving descending colon likely from infectious inflammatory osteology no bowel dilatation circumferential wall thickening of the urinary bladder which may be due to underdistention and hepatic steatosis patient was started on Zosyn infectious disease was consulted for further management Review of Systems Positive point and negatives has been mentioned in the HPI, complete review of systems was performed and all other systems are negative Past Medical History Past Medical History: Coronary Artery Disease (CAD), Heart Failure, Diabetes Mellitus, Hyperlipidemia, Hypertension, Myocardial Infarction ([place]), Syncope, Thyroid Disorder Additional Past Medical History / Comment(s): CT of the brain in September 2017 demonstrated old right lacunar infarct Last Myocardial Infarction Date:: 12/06/2018 History of Any Multi-Drug Resistant Organisms: None Reported Past Surgical History: Coronary Bypass/CABG, Orthopedic Surgery Additional Past Surgical History / Comment(s): right hip Past Anesthesia/Blood Transfusion Reactions: No Reported Reaction Past Psychological History: Bipolar, PTSD Smoking Status: Never smoker Past Alcohol Use History: None Reported Past Drug Use History: None Reported - Past Family History Father Family Medical History: No Reported History Mother History Unknown: Yes Family Medical History: No Reported History Medications and Allergies Home Medications Medication Instructions Recorded Confirmed Type metFORMIN HCL 500 mg PO TID 02/06/19 10/07/23 History Atorvastatin [Lipitor] 40 mg PO HS 10/09/19 10/07/23 History amLODIPine [Norvasc] 10 mg PO DAILY #30 tab 11/09/22 10/07/23 Rx Levothyroxine Sodium [Synthroid] 112 mcg PO DAILY 09/16/23 10/07/23 History Metoprolol Tartrate [Lopressor] 12.5 mg PO BID 09/16/23 10/07/23 History Insulin Regular, Human [Novolin R] See Protocol SQ ACHS 10/07/23 10/07/23 History Pantoprazole [Protonix] 40 mg PO DAILY 10/07/23 10/07/23 History cefUROXime axetiL [Ceftin] 500 mg PO BID 10 Days #20 tab 10/12/23 Rx metroNIDAZOLE [Flagyl] 500 mg PO TID #30 tab 10/12/23 Rx Allergies Allergy/AdvReac Type Severity Reaction Status Date / Time No Known Allergies Allergy Verified 10/07/23 17:39 Physical Exam Vitals: Vital Signs Temp Pulse Pulse Resp BP BP Pulse Ox 10/08/23 13:31 99.0 F 85 17 146/76 96 10/08/23 07:50 98.6 F 101 H 17 106/62 96 10/08/23 00:53 97 F L 93 123/82 93 L 10/07/23 19:52 98.6 F 10/07/23 18:37 99.1 F 96 19 109/67 96 10/07/23 18:19 94 22 110/50 97 10/07/23 17:35 100.9 F H 92 18 111/70 97 10/07/23 16:03 102.4 F H 105 H 20 124/68 97 Intake and Output 10/08/23 10/08/23 10/08/23 06:59 14:59 22:59 Other: Voiding Method External Catheter # Voids 1 5 # Bowel Movements 4 GENERAL DESCRIPTION: An elderly male lying in bed, no distress. No tachypnea or accessory muscle of respiration use. HEENT: Shows Pallor , no scleral icterus. Oral mucous membrane is dry. NECK: Trachea central, no thyromegaly. LUNGS: Unlabored breathing. Clear to auscultation anteriorly. No wheeze or crackle. HEART: S1, S2, regular rate and rhythm. No loud murmur ABDOMEN: Soft, no tenderness EXTREMITIES: No edema of feet. SKIN: No rash, no masses palpable. NEUROLOGICAL: The patient is awake, alert, oriented x3, mood and affect normal. Results CBC & Chem 7: 10/11/23 05:20 10/11/23 05:20 Labs: Abnormal Lab Results - Last 24 Hours (Table) 10/07/23 10/07/23 10/07/23 Range/Units 12:29 12:29 14:34 WBC (3.8-10.6) k/uL RBC (4.30-5.90) m/uL Hgb (13.0-17.5) gm/dL Hct (39.0-53.0) % Neutrophils # (1.3-7.7) k/uL Lymphocytes # (1.0-4.8) k/uL Sodium (137-145) mmol/L Carbon Dioxide (22-30) mmol/L Glucose (74-99) mg/dL POC Glucose (mg/dL) (70-110) mg/dL Calcium (8.4-10.2) mg/dL C-Reactive Protein (<1.0) mg/dL Procalcitonin (0.02-0.09) ng/mL Free T4 2.29 H (0.78-2.19) ng/dL Urine Protein 2+ H (Negative) Urine Glucose (UA) 3+ H (Negative) Urine Ketones 2+ H (Negative) Urine Blood Trace H (Negative) Urine Bacteria Rare H (None) /hpf Urine Mucus Rare H (None) /hpf SARS-CoV-2 (PCR) Detected A (Not Detectd) 10/07/23 10/07/23 10/07/23 Range/Units 14:34 17:45 17:46 WBC (3.8-10.6) k/uL RBC (4.30-5.90) m/uL Hgb (13.0-17.5) gm/dL Hct (39.0-53.0) % Neutrophils # (1.3-7.7) k/uL Lymphocytes # (1.0-4.8) k/uL Sodium (137-145) mmol/L Carbon Dioxide (22-30) mmol/L Glucose (74-99) mg/dL POC Glucose (mg/dL) 121 H (70-110) mg/dL Calcium (8.4-10.2) mg/dL C-Reactive Protein 6.5 H (<1.0) mg/dL Procalcitonin 0.23 H (0.02-0.09) ng/mL Free T4 (0.78-2.19) ng/dL Urine Protein (Negative) Urine Glucose (UA) (Negative) Urine Ketones (Negative) Urine Blood (Negative) Urine Bacteria (None) /hpf Urine Mucus (None) /hpf SARS-CoV-2 (PCR) (Not Detectd) 10/07/23 10/08/23 10/08/23 Range/Units 20:25 05:50 07:17 WBC 14.1 H (3.8-10.6) k/uL RBC 4.05 L (4.30-5.90) m/uL Hgb 11.7 L (13.0-17.5) gm/dL Hct 36.4 L (39.0-53.0) % Neutrophils # 12.4 H (1.3-7.7) k/uL Lymphocytes # 0.7 L (1.0-4.8) k/uL Sodium (137-145) mmol/L Carbon Dioxide (22-30) mmol/L Glucose (74-99) mg/dL POC Glucose (mg/dL) 167 H 265 H (70-110) mg/dL Calcium (8.4-10.2) mg/dL C-Reactive Protein (<1.0) mg/dL Procalcitonin (0.02-0.09) ng/mL Free T4 (0.78-2.19) ng/dL Urine Protein (Negative) Urine Glucose (UA) (Negative) Urine Ketones (Negative) Urine Blood (Negative) Urine Bacteria (None) /hpf Urine Mucus (None) /hpf SARS-CoV-2 (PCR) (Not Detectd) 10/08/23 10/08/23 10/08/23 Range/Units 07:17 11:48 13:51 WBC (3.8-10.6) k/uL RBC (4.30-5.90) m/uL Hgb (13.0-17.5) gm/dL Hct (39.0-53.0) % Neutrophils # (1.3-7.7) k/uL Lymphocytes # (1.0-4.8) k/uL Sodium 136 L (137-145) mmol/L Carbon Dioxide 13 L (22-30) mmol/L Glucose 264 H (74-99) mg/dL POC Glucose (mg/dL) 265 H 245 H (70-110) mg/dL Calcium 8.1 L (8.4-10.2) mg/dL C-Reactive Protein (<1.0) mg/dL Procalcitonin (0.02-0.09) ng/mL Free T4 (0.78-2.19) ng/dL Urine Protein (Negative) Urine Glucose (UA) (Negative) Urine Ketones (Negative) Urine Blood (Negative) Urine Bacteria (None) /hpf Urine Mucus (None) /hpf SARS-CoV-2 (PCR) (Not Detectd) Assessment and Plan (1) COVID-19 Current Visit: Yes Status: Acute Code(s): U07.1 - COVID-19 SNOMED Code(s): 052550615 (2) Colitis Current Visit: Yes Status: Acute Code(s): K52.9 - NONINFECTIVE GASTROENTERITIS AND COLITIS, UNSPECIFIED SNOMED Code(s): 45843937 Plan: 1patient presented hospital with sepsis in this patient who did have a fever elevated white count tachycardia source is likely colitis and a question of ischemic versus infectious we will likely require for the enteric gram-negative both aerobes and anaerobes. 2patient did tested positive for COVID-19 however the patient is not hypoxic and not been evidence of any acute infiltrate on chest x-ray treatment will be mostly supportive. 3we will check a stool for C. difficile and stool culture. 4continue empiric Zosyn while waiting for the work-up to be completed. 5patient to continue with the zinc and ascorbic acid Lovenox no need for steroids or remdesivir 6droplet isolation We will follow on clinical condition and cultures to further adjust medication if needed Thank you for this consultation we will follow the patient along with you Dictation was produced using [employer] dictation software. please excuse any grammatical, word or spelling errors. Time with Patient: Greater than 30
[2023-10-09] MEDS: PANTOPRAZOLE 40 MG/10 ML VIAL IVP SCH ×2 (08:44→20:35)
[2023-10-09] MEDS: amLODIPine 10 MG TAB PO SCH (08:44)
[2023-10-09] MEDS: ZINC SULFATE 220 MG CAP PO SCH (08:44)
[2023-10-09] MEDS: METOPROLOL TARTRATE 12.5 MG TAB PO SCH ×2 (08:44→20:35)
[2023-10-09] MEDS: ASCORBIC ACID 500 MG TAB PO SCH (08:44)
[2023-10-09] MEDS: CHOLECALCIFEROL 25 MCG (1000 IU) TABLET PO SCH (08:44)
[2023-10-09] MEDS: ONDANSETRON 4 MG/2 ML VIAL IVP PRN ×2 (10:43→20:35)
[2023-10-09 10:48] LABS: Basophils # (A) 0.04 X 10*3/uL (0.00-0.10); Basophils % (A) 0.3 %; Eosinophils # (A) 0.07 X 10*3/uL (0.04-0.35); Eosinophils % (A) 0.5 %; HCT 35.3 % (39.6-50.0); HGB 11.1 g/dL (13.0-17.0); Lymphocytes # (A) 0.88 X 10*3/uL (0.90-5.00); Lymphocytes % (A) 6.6 %; MCH 28.1 pg (27.0-32.0); MCHC 31.4 g/dL (32.0-37.0); MCV 89.4 FL (80.0-97.0); Mean Platelet Volume 9.8 FL (9.5-12.2); Monocytes # (A) 0.81 X 10*3/uL (0.20-1.00); NRBC Per 100 WBC 0.02 X 10*3/uL (0.00-0.01); Neutrophils # (A) 11.58 X 10*3/uL (1.80-7.70); Neutrophils % (A) 86.3 %; Platelet Count 268 X 10*3/uL (140-440); RBC 3.95 X 10*6/uL (4.40-5.60); RDW 15.6 % (11.5-14.5); WBC 13.42 X 10*3/uL (4.50-10.00)
[2023-10-09 11:05] LABS: BUN/Creat Ratio 11.11 Ratio (12.00-20.00); Calcium 7.7 mg/dL (8.7-10.3); Carbon Dioxide 15.5 mmol/L (21.6-31.8); Chloride 104 mmol/L (96-109); Glucose 216 mg/dL (70-110); Potassium 4.5 mmol/L (3.5-5.5); Sodium 135 mmol/L (135-145)
[2023-10-09 11:44] LABS: Glucose,Whole Blood 161 mg/dL (70-110)
--- NOTE | 2023-10-09 14:02 | P.PN ---
Subjective Progress Note Date: 10/09/23 Principal diagnosis: Reason for follow-up is covid 19 and colitis Patient is a 72-year-old male with a past medical history significant for diabetes mellitus hypertension hyperlipidemia coronary disease MD bipolar and PTSD patient was brought into the hospital from the local intermediate for evaluation of generalized weakness decreased activity decreased oral intake and incontinence of stool, patient did test positive for covid19 , CT abdomen and pelvis did show evidence of colitis involving descending colon. On today's evaluation that is 10/09/2023, the patient is afebrile, the patient is breathing comfortably on room air denies any chest pain shortness of breath or cough patient denies any abdominal pain patient diarrhea has slowed on stool or more formula per the nurse's aide however the patient seemed to have problem with the vomiting. Patient white count is 13.42, creatinine 0.9, blood cultures are pending Objective - Vital Signs Vital signs: Vital Signs Temp 98.1 F 10/09/23 07:30 Pulse 93 10/09/23 07:30 Resp 17 10/09/23 07:30 BP 138/69 10/09/23 07:30 Pulse Ox 94 L 10/09/23 07:30 FiO2 Intake & Output 10/08/23 10/09/23 10/09/23 18:59 06:59 18:59 Other: Voiding Method External Catheter Diaper # Voids 1 2 # Bowel Movements 4 2 - Exam GENERAL DESCRIPTION: An elderly male lying in bed in no distress RESPIRATORY SYSTEM: Unlabored breathing , decreased intensity of breath sounds HEART: S1 S2 regular rate and rhythm , ABDOMEN: Soft , no tenderness EXTREMITIES: No edema feet - Labs CBC & Chem 7: 10/09/23 06:30 10/09/23 06:30 Labs: Abnormal Lab Results - Last 24 Hours (Table) 10/08/23 10/08/23 10/08/23 Range/Units 11:48 13:51 16:05 WBC (4.50-10.00) X 10*3/uL RBC (4.40-5.60) X 10*6/uL Hgb (13.0-17.0) g/dL Hct (39.6-50.0) % MCHC (32.0-37.0) g/dL RDW (11.5-14.5) % Neutrophils # (1.80-7.70) X 10*3/uL Lymphocytes # (0.90-5.00) X 10*3/uL NRBC/100 WBC Diff (0.00-0.01) X 10*3/uL POC Glucose (mg/dL) 265 H 245 H 175 H (70-110) mg/dL 10/09/23 10/09/23 Range/Units 05:48 06:30 WBC 13.42 H (4.50-10.00) X 10*3/uL RBC 3.95 L (4.40-5.60) X 10*6/uL Hgb 11.1 L (13.0-17.0) g/dL Hct 35.3 L (39.6-50.0) % MCHC 31.4 L (32.0-37.0) g/dL RDW 15.6 H (11.5-14.5) % Neutrophils # 11.58 H (1.80-7.70) X 10*3/uL Lymphocytes # 0.88 L (0.90-5.00) X 10*3/uL NRBC/100 WBC Diff 0.02 H (0.00-0.01) X 10*3/uL POC Glucose (mg/dL) 206 H (70-110) mg/dL Microbiology - Last 24 Hours (Table) 10/07/23 12:45 Blood Culture - Preliminary Blood 10/07/23 12:30 Blood Culture - Preliminary Blood Assessment and Plan Plan: 1patient presented hospital with sepsis in this patient who did have a fever elevated white count tachycardia source is likely colitis and a question of ischemic versus infectious we will likely require for the enteric gram-negative both aerobes and anaerobes. 2patient did tested positive for COVID-19 however the patient is not hypoxic and not been evidence of any acute infiltrate on chest x-ray treatment will be mostly supportive.to continue with the zinc and ascorbic acid Lovenox 3 stool studies are currently pending collection 4patient to continue with Zosyn while waiting for the work-up to be completed. Dictation was produced using [employer] dictation software. please excuse any grammatical, word or spelling errors. Time with Patient: Less than 30
--- NOTE | 2023-10-09 14:06 | P.PN ---
Subjective Progress Note Date: 10/09/23 CHIEF COMPLAINT: Colitis HISTORY OF PRESENT ILLNESS: Patient reports having diarrhea. Reports no blood i n the stools. He did have vomiting this morning. Stool is too formed to be sent for c.diff sample per nurse. He had a computed tomography scan of the abdomen and pelvis completed yesterday results reported colitis involving the ascending colon likely from an inflammatory/infectious etiology. No bowel dilatation to suggest obstruction or ileus. Circumferential wall thickening of the urinary bladder which may be due to under distention versus cystitis. Hepatic steatosis. Afebrile. WBC is down from 14-13.4 hgb 11.1 plt 268 Na 135 K 4.5 Cr 0.9 PHYSICAL EXAM: VITAL SIGNS: Reviewed. GENERAL: Well-developed in no acute distress. ABDOMEN: Soft. mildly distended. tender with palpation of the right side of the abdomen NEUROLOGIC: Alert and oriented. Cranial nerves II through XII grossly intact. ASSESSMENT: 1. Colitis of the ascending colon likely an infectious/inflammatory etiology per computed tomography scan findings 2. Covid PLAN: -Patient scheduled for colonoscopy on , 10/11/[address] dozier -Start GoLYTELY bowel prep tomorrow morning -Continue clear liquid diet -Antibiotics per ID service Physician Engineering Project Manager note has been reviewed by physician. Signing provider agrees with the documented findings, assessment, and plan of care. Objective - Vital Signs Vital signs: Vital Signs Temp 98.1 F 10/09/23 07:30 Pulse 93 10/09/23 07:30 Resp 17 10/09/23 07:30 BP 138/69 10/09/23 07:30 Pulse Ox 94 L 10/09/23 07:30 FiO2 Intake & Output 10/08/23 10/09/23 10/09/23 18:59 06:59 18:59 Other: Voiding Method External Catheter Diaper # Voids 1 2 # Bowel Movements 4 2 - Labs CBC & Chem 7: 10/09/23 06:30 10/09/23 06:30 Labs: Abnormal Lab Results - Last 24 Hours (Table) 10/08/23 10/08/23 10/08/23 Range/Units 11:48 13:51 16:05 WBC (4.50-10.00) X 10*3/uL RBC (4.40-5.60) X 10*6/uL Hgb (13.0-17.0) g/dL Hct (39.6-50.0) % MCHC (32.0-37.0) g/dL RDW (11.5-14.5) % Neutrophils # (1.80-7.70) X 10*3/uL Lymphocytes # (0.90-5.00) X 10*3/uL NRBC/100 WBC Diff (0.00-0.01) X 10*3/uL Carbon Dioxide (21.6-31.8) mmol/L Anion Gap (4.00-12.00) mmol/L BUN/Creatinine Ratio (12.00-20.00) Ratio Glucose (70-110) mg/dL POC Glucose (mg/dL) 265 H 245 H 175 H (70-110) mg/dL Calcium (8.7-10.3) mg/dL 10/09/23 10/09/23 10/09/23 Range/Units 05:48 06:30 06:30 WBC 13.42 H (4.50-10.00) X 10*3/uL RBC 3.95 L (4.40-5.60) X 10*6/uL Hgb 11.1 L (13.0-17.0) g/dL Hct 35.3 L (39.6-50.0) % MCHC 31.4 L (32.0-37.0) g/dL RDW 15.6 H (11.5-14.5) % Neutrophils # 11.58 H (1.80-7.70) X 10*3/uL Lymphocytes # 0.88 L (0.90-5.00) X 10*3/uL NRBC/100 WBC Diff 0.02 H (0.00-0.01) X 10*3/uL Carbon Dioxide 15.5 L (21.6-31.8) mmol/L Anion Gap 15.50 H (4.00-12.00) mmol/L BUN/Creatinine Ratio 11.11 L (12.00-20.00) Ratio Glucose 216 H (70-110) mg/dL POC Glucose (mg/dL) 206 H (70-110) mg/dL Calcium 7.7 L (8.7-10.3) mg/dL Microbiology - Last 24 Hours (Table) 10/07/23 12:45 Blood Culture - Preliminary Blood 10/07/23 12:30 Blood Culture - Preliminary Blood
--- NOTE | 2023-10-09 14:18 | P.PN ---
Subjective This is a pleasant 72 years old male from retirement with past medical history of Coronary Artery Disease status post CABG , Heart Failure, Diabetes Mellitus, Hyperlipidemia, Hypertension, Syncope, thyroid disease, CT of the brain in September 2017 demonstrated old right lacunar infarct, Bipolar, PTSD. PCP is Dr. 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 He denies chest pain dyspnea or coughing No vomiting but he has somewhat poor appetite He denies dysuria , but there was concern about urgency as he was wetting himself as per officer at bedside while he was in retirement. No no headache dizziness weakness or numbness in extremities. He denies smoking alcohol or illicit drugs Patient has a fever of 102, Postoperative vitals are stable, he is mildly tachycardic but saturating 97% on room air showing mild leukocytosis 12.5, hemoglobin 12.5, platelet count normal. He has some evidence of lymphopenia 0.9 and left shift with neutrophilia at 10.4%. INR 1.0. BMP is unremarkable. Carbon dioxide 21. Glucose elevated at 200. Lactic acid 2.3 which is mildly elevated. Liver enzymes are unremarkable, ammonia, creatinine kinase and troponin are all negative. ProBNP is 3430. Urine analysis showing 2+ protein, 3+ glucose, 2+ ketones with no evidence of infection. Acetone is positive. Influenza and RSV are negative but Covid test came back positive Chest x-ray: No acute cardiopulmonary process CT of the brain: No acute process. Atrophy KUB:Nonspecific bowel gas pattern, may represent fecal stasis/ileus. If there is persistent concern, follow-up radiographs or CT may be considered. Generous him to IV fluids and Rocephin in the emergency room 10/08/2023 Patient today looks more comfortable more relaxed compared to severe pallor and weakness yesterday. He still feels generally weak. However other symptoms she had yesterday looks improving He tolerated his regular diet this morning with breakfast, he denies abdominal pain or tenderness however his abdomen is still mildly distended, he said that he has 2-3 bowel movement last night but no diarrhea. Or improvement. He denies specific urinary complaints and his urine analysis is not suspicious of infection. His fever on admission has subsided. And dorsal Vitas looks stable. He is on room air. WBC slightly worse 14,000, hemoglobin 11.7, creatinine normal At 0.9. LDH 235 which is within the reference range and CRP mildly elevated at 6.5 as well as Pro-calcitonin 0.23 Repeat KUB today showing a still persistent ileus therefore going to order CT of the abdomen and pelvis and place him on liquid diet. Patient continued on normal saline 100 mL/h, vitamin C, vitamin D zinc, Lovenox and Protonix 10/09/2023 Patient had bowel movement with blunt early this morning He feels generally weak, he still has poor appetite He has mild right abdominal pain with mild tenderness and no rebound tenderness. Vitals stable. The WBC 13,000, hemoglobin 11.1. He remains on normal saline 100 mL per hour and Zosyn. Plan for colonoscopy on and 2 days Review of systems CONSTITUTIONAL: No fever, no malaise, no fatigue. HEENT: No recent visual problems or hearing problems. Denied any sore throat. CARDIOVASCULAR: No orthopnea, PND, no palpitations, no syncope. PULMONARY: No shortness of breath, no cough, no hemoptysis. GASTROINTESTINAL: No diarrhea, no nausea, no vomiting, no abdominal pain. Normoactive bowel sounds. NEUROLOGICAL: No headaches, no weakness, no numbness. HEMATOLOGICAL: Denies any bleeding or petechiae. Active Medications Generic Name Dose Route Start Last Admin Trade Name Freq PRN Reason Stop Dose Admin Acetaminophen 650 mg 10/07/23 17:31 Acetaminophen Tab 325 Mg Tab PO Q6HR PRN Mild Pain or Fever > 100.5 Amlodipine Besylate 10 mg 10/08/23 09:00 10/09/23 08:44 Amlodipine 10 Mg Tab PO 10 mg DAILY JOLYNN Administration Ascorbic Acid 1,000 mg 10/08/23 09:00 10/09/23 08:44 Ascorbic Acid 500 Mg Tab PO 1,000 mg DAILY JOLYNN Administration Atorvastatin Calcium 40 mg 10/07/23 21:00 10/08/23 21:09 Atorvastatin 40 Mg Tab PO 40 mg HS JOLYNN Administration Cholecalciferol 50 mcg 10/07/23 18:00 10/09/23 08:44 Cholecalciferol 25 Mcg (1000 Iu) Tablet PO 50 mcg DAILY JOLYNN Administration Dextrose/Water 25 ml 10/07/23 17:40 Dextrose 50% Syringe 50 Ml IVP PER PROTOCOL PRN Hypoglycemia Protocol Dextrose/Water 50 ml 10/07/23 17:40 Dextrose 50% Syringe 50 Ml IVP PER PROTOCOL PRN Hypoglycemia Protocol Sodium Chloride 1,000 mls @ 100 mls/hr 10/07/23 17:45 10/09/23 09:54 Saline 0.9% IV Not Given .Q10H JOLYNN Piperacillin Sod/Tazobactam 100 mls @ 25 mls/hr 10/09/23 00:00 10/09/23 08:43 Sod 3.375 gm/ Sodium Chloride IVPB 25 mls/hr Q8HR JOLYNN Administration Protocol Insulin Aspart 11 unit 10/08/23 07:30 10/09/23 12:35 Insulin Aspart (Novolog) 100 Unit/Ml Vial 0.1 unit/kg (11 unit) 11 unit SQ Administration AC-TID [facility] Levothyroxine Sodium 100 mcg 10/08/23 06:30 10/09/23 05:48 Levothyroxine 100 Mcg Tab PO 100 mcg DAILY@0630 JOLYNN Administration Metoprolol Tartrate 12.5 mg 10/07/23 21:00 10/09/23 08:44 Metoprolol Tartrate 12.5 Mg Tab PO 12.5 mg BID JOLYNN Administration Naloxone HCl 0.2 mg 10/07/23 17:31 Naloxone 0.4 Mg/Ml 1 Ml Vial IV Q2M PRN Opioid Reversal Ondansetron HCl 4 mg 10/09/23 10:31 10/09/23 10:43 Ondansetron 4 Mg/2 Ml Vial IVP 4 mg Q6HR PRN Administration Nausea And Vomiting Pantoprazole Sodium 40 mg 10/09/23 09:00 10/09/23 08:44 Pantoprazole 40 Mg/10 Ml Vial IVP 40 mg BID JOLYNN Administration Petrolatum 1 applic 10/08/23 04:08 Zinc Oxide Paste (Z-Guard) 1 Applic Applic TOPICAL Q2HR PRN Wound Healing Polyethylene Glycol/Electrolytes 4,000 ml 10/10/23 09:00 Peg 3350 (236 Gm/Btl) + Lytes 4,000 Ml Bottle PO 10/10/23 09:01 ONCE ONE Zinc Sulfate 220 mg 10/08/23 09:00 10/09/23 08:44 Zinc Sulfate 220 Mg Cap PO 220 mg DAILY JOLYNN Administration Objective - Vital Signs Vital signs: Vital Signs Temp 98.1 F 10/09/23 07:30 Pulse 93 10/09/23 07:30 Resp 17 10/09/23 07:30 BP 138/69 10/09/23 07:30 Pulse Ox 94 L 10/09/23 07:30 FiO2 Intake & Output 10/08/23 10/09/23 10/09/23 18:59 06:59 18:59 Other: Voiding Method External Catheter Diaper External Catheter # Voids 1 2 # Bowel Movements 4 2 - Exam GENERAL: The patient is alert and oriented x3, not in any acute distress. Well developed, well nourished. HEENT: Pupils are round and equally reacting to light. EOMI. No scleral icterus. No conjunctival pallor. Normocephalic, atraumatic. No pharyngeal erythema. No thyromegaly. CARDIOVASCULAR: S1 and S2 present. No murmurs, rubs, or gallops. PULMONARY: Chest is clear to auscultation, no wheezing , no crackles. -ABDOMEN: Soft, nontender, mildly distended, normoactive bowel sounds. No palpable organomegaly. MUSCULOSKELETAL: No joint swelling or deformity. EXTREMITIES: No cyanosis, clubbing, or pedal edema. NEUROLOGICAL: Gross neurological examination did not reveal any focal deficits. SKIN: No rashes. no petechiae. - Labs CBC & Chem 7: 10/09/23 06:30 10/09/23 06:30 Labs: Abnormal Lab Results - Last 24 Hours (Table) 10/08/23 10/09/23 10/09/23 Range/Units 16:05 05:48 06:30 WBC 13.42 H (4.50-10.00) X 10*3/uL RBC 3.95 L (4.40-5.60) X 10*6/uL Hgb 11.1 L (13.0-17.0) g/dL Hct 35.3 L (39.6-50.0) % MCHC 31.4 L (32.0-37.0) g/dL RDW 15.6 H (11.5-14.5) % Neutrophils # 11.58 H (1.80-7.70) X 10*3/uL Lymphocytes # 0.88 L (0.90-5.00) X 10*3/uL NRBC/100 WBC Diff 0.02 H (0.00-0.01) X 10*3/uL Carbon Dioxide (21.6-31.8) mmol/L Anion Gap (4.00-12.00) mmol/L BUN/Creatinine Ratio (12.00-20.00) Ratio Glucose (70-110) mg/dL POC Glucose (mg/dL) 175 H 206 H (70-110) mg/dL Calcium (8.7-10.3) mg/dL 10/09/23 10/09/23 Range/Units 06:30 11:41 WBC (4.50-10.00) X 10*3/uL RBC (4.40-5.60) X 10*6/uL Hgb (13.0-17.0) g/dL Hct (39.6-50.0) % MCHC (32.0-37.0) g/dL RDW (11.5-14.5) % Neutrophils # (1.80-7.70) X 10*3/uL Lymphocytes # (0.90-5.00) X 10*3/uL NRBC/100 WBC Diff (0.00-0.01) X 10*3/uL Carbon Dioxide 15.5 L (21.6-31.8) mmol/L Anion Gap 15.50 H (4.00-12.00) mmol/L BUN/Creatinine Ratio 11.11 L (12.00-20.00) Ratio Glucose 216 H (70-110) mg/dL POC Glucose (mg/dL) 161 H (70-110) mg/dL Calcium 7.7 L (8.7-10.3) mg/dL Microbiology - Last 24 Hours (Table) 10/07/23 12:45 Blood Culture - Preliminary Blood 10/07/23 12:30 Blood Culture - Preliminary Blood Assessment and Plan Assessment: Covid infection without overt pneumonia Fever most likely secondary to Covid infection or bacterial rinfection Possible acute Covid gastroenteritis with ileus , vs others sepsis with fever and leukocytosis Generalized weakness and malaise secondary to above Mild metabolic encephalopathy Diabetes mellitus, with hyperglycemia Hypothyroidism With high TSH, POA Hypertension Hyperlipidemia History of osteoarthritis Hypothyroidism History of coronary artery disease status post CABG Chronic heart failure, unknown ejection fraction History of syncope History of right lacunar infarct Bipolar, PTSD, not an active issue Plan: Start vitamin D, vitamin C and zinc Continue with IV hydration Continue Zosyn Colonoscopy on consult ID And surgery teams Insulin sliding scale continue with lower dose of levothyroxine 100 g daily ( previously was 112 g daily) Labs and medication were reviewed.. Continue same treatment. Continue with symptomatic treatment. Resume home medication. Monitor lytes and vitals. DVT and GI prophylaxis. Further recommendations depends on the clinical course of the patient DVT prophylaxis: Subcutaneous Lovenox GI Prophylaxis: Ppi Prognosis is guarded
[2023-10-09 16:28] LABS: Glucose,Whole Blood 143 mg/dL (70-110)
[2023-10-09 19:54] LABS: Glucose,Whole Blood 140 mg/dL (70-110)
[2023-10-09] MEDS: ATORVASTATIN 40 MG TAB PO SCH (20:35)
[2023-10-10] MEDS: PIPERACILLIN-TAZOBACTAM 3.375 GM in SODIUM CHLORIDE 0.9% 100 ML IVPB SCH ×4 (00:39→23:41)
[2023-10-10 05:06] LABS: Glucose,Whole Blood 229 mg/dL (70-110)
[2023-10-10] MEDS: SODIUM CHLORIDE 0.9% 1,000 ML IV SCH ×3 (05:21→23:41)
[2023-10-10] MEDS: INSULIN ASPART (NovoLOG) 100 UNIT/ML VIAL SQ SCH ×3 (07:00→17:02)
[2023-10-10] MEDS: LEVOTHYROXINE 100 MCG TAB PO SCH (07:00)
[2023-10-10] MEDS: ZINC SULFATE 220 MG CAP PO SCH (07:32)
[2023-10-10] MEDS: amLODIPine 10 MG TAB PO SCH (07:32)
[2023-10-10] MEDS: CHOLECALCIFEROL 25 MCG (1000 IU) TABLET PO SCH (07:32)
[2023-10-10] MEDS: ASCORBIC ACID 500 MG TAB PO SCH (07:32)
[2023-10-10] MEDS: METOPROLOL TARTRATE 12.5 MG TAB PO SCH ×2 (07:32→21:38)
[2023-10-10 08:39] LABS: HCT 32.6 % (39.6-50.0); HGB 10.2 g/dL (13.0-17.0); MCH 27.5 pg (27.0-32.0); MCHC 31.3 g/dL (32.0-37.0); MCV 87.9 FL (80.0-97.0); Mean Platelet Volume 9.5 FL (9.5-12.2); NRBC Per 100 WBC 0 X 10*3/uL (0.00-0.01); Platelet Count 258 X 10*3/uL (140-440); RBC 3.71 X 10*6/uL (4.40-5.60); RDW 15.7 % (11.5-14.5); WBC 8.53 X 10*3/uL (4.50-10.00)
[2023-10-10] MEDS ORDERED: PEG 3350 (236 GM/BTL) + LYTES 4,000 ML BOTTLE PO ONE (09:00)
[2023-10-10 09:03] LABS: BUN/Creat Ratio 7.33 Ratio (12.00-20.00); Blood Urea Nitrogen 6.6 mg/dL (9.0-27.0); Calcium 7.6 mg/dL (8.7-10.3); Carbon Dioxide 18.9 mmol/L (21.6-31.8); Chloride 104 mmol/L (96-109); Glucose 240 mg/dL (70-110); Potassium 4.3 mmol/L (3.5-5.5); Sodium 136 mmol/L (135-145)
[2023-10-10] MEDS: ONDANSETRON 4 MG/2 ML VIAL IVP PRN ×2 (09:50→21:44)
[2023-10-10] MEDS: PANTOPRAZOLE 40 MG/10 ML VIAL IVP SCH ×2 (09:50→21:38)
[2023-10-10 09:58] LABS: Basophils # (A) 0.01 X 10*3/uL (0.00-0.10); Basophils % (A) 0.1 %; Eosinophils # (A) 0.22 X 10*3/uL (0.04-0.35); Eosinophils % (A) 2.6 %; Lymphocytes # (A) 0.88 X 10*3/uL (0.90-5.00); Lymphocytes % (A) 10.3 %; Monocytes # (A) 0.68 X 10*3/uL (0.20-1.00); Neutrophils # (A) 6.73 X 10*3/uL (1.80-7.70); Neutrophils % (A) 78.9 %; RBC Morphology Normal (Normal)
[2023-10-10 11:56] LABS: Glucose,Whole Blood 165 mg/dL (70-110)
--- NOTE | 2023-10-10 11:56 | P.PN ---
Subjective Progress Note Date: 10/10/23 Principal diagnosis: Reason for follow-up is covid 19 and colitis Patient is a 72-year-old male with a past medical history significant for diabetes mellitus hypertension hyperlipidemia coronary disease OK bipolar and PTSD patient was [facility] for evaluation of generalized weakness decreased activity decreased oral intake and incontinence of stool, patient did test positive for covid19 , CT abdomen and pelvis did show evidence of colitis involving descending colon. On today's evaluation that is 10/10/2023, the patient continues to be afebrile , the patient is breathing comfortably on room air and no need for supplemental o xygen, the patient denies chest pain shortness of breath , did have occasional dry cough , patient did have improvement in nausea no further vomiting no abdominal pain still complaining of diarrhea is currently undergoing prep for colonoscopy per surgery Patient white count normalized to 8.53, creatinine 0.9, blood cultures are pending Objective - Vital Signs Vital signs: Vital Signs Temp 97.6 F 10/10/23 08:17 Pulse 87 10/10/23 08:17 Resp 18 10/10/23 08:17 BP 137/68 10/10/23 08:17 Pulse Ox 97 10/10/23 08:17 FiO2 Intake & Output 10/09/23 10/10/23 10/10/23 18:59 06:59 18:59 Other: Voiding Method External Catheter Diaper Diaper # Voids 2 2 # Bowel Movements 1 2 - Exam GENERAL DESCRIPTION: An elderly male lying in bed in no distress RESPIRATORY SYSTEM: Unlabored breathing , decreased intensity of breath sounds HEART: S1 S2 regular rate and rhythm , ABDOMEN: Soft , no tenderness EXTREMITIES: No edema feet - Labs CBC & Chem 7: 10/10/23 05:38 10/10/23 05:38 Labs: Abnormal Lab Results - Last 24 Hours (Table) 10/09/23 10/09/23 10/09/23 Range/Units 06:30 06:30 11:41 WBC 13.42 H (4.50-10.00) X 10*3/uL RBC 3.95 L (4.40-5.60) X 10*6/uL Hgb 11.1 L (13.0-17.0) g/dL Hct 35.3 L (39.6-50.0) % MCHC 31.4 L (32.0-37.0) g/dL RDW 15.6 H (11.5-14.5) % Neutrophils # 11.58 H (1.80-7.70) X 10*3/uL Lymphocytes # 0.88 L (0.90-5.00) X 10*3/uL NRBC/100 WBC Diff 0.02 H (0.00-0.01) X 10*3/uL Carbon Dioxide 15.5 L (21.6-31.8) mmol/L Anion Gap 15.50 H (4.00-12.00) mmol/L BUN (9.0-27.0) mg/dL BUN/Creatinine Ratio 11.11 L (12.00-20.00) Ratio Glucose 216 H (70-110) mg/dL POC Glucose (mg/dL) 161 H (70-110) mg/dL Calcium 7.7 L (8.7-10.3) mg/dL 10/09/23 10/09/23 10/10/23 Range/Units 16:22 19:53 05:05 WBC (4.50-10.00) X 10*3/uL RBC (4.40-5.60) X 10*6/uL Hgb (13.0-17.0) g/dL Hct (39.6-50.0) % MCHC (32.0-37.0) g/dL RDW (11.5-14.5) % Neutrophils # (1.80-7.70) X 10*3/uL Lymphocytes # (0.90-5.00) X 10*3/uL NRBC/100 WBC Diff (0.00-0.01) X 10*3/uL Carbon Dioxide (21.6-31.8) mmol/L Anion Gap (4.00-12.00) mmol/L BUN (9.0-27.0) mg/dL BUN/Creatinine Ratio (12.00-20.00) Ratio Glucose (70-110) mg/dL POC Glucose (mg/dL) 143 H 140 H 229 H (70-110) mg/dL Calcium (8.7-10.3) mg/dL 10/10/23 10/10/23 Range/Units 05:38 05:38 WBC (4.50-10.00) X 10*3/uL RBC 3.71 L (4.40-5.60) X 10*6/uL Hgb 10.2 L (13.0-17.0) g/dL Hct 32.6 L (39.6-50.0) % MCHC 31.3 L (32.0-37.0) g/dL RDW 15.7 H (11.5-14.5) % Neutrophils # (1.80-7.70) X 10*3/uL Lymphocytes # 0.88 L (0.90-5.00) X 10*3/uL NRBC/100 WBC Diff (0.00-0.01) X 10*3/uL Carbon Dioxide 18.9 L (21.6-31.8) mmol/L Anion Gap 13.10 H (4.00-12.00) mmol/L BUN 6.6 L (9.0-27.0) mg/dL BUN/Creatinine Ratio 7.33 L (12.00-20.00) Ratio Glucose 240 H (70-110) mg/dL POC Glucose (mg/dL) (70-110) mg/dL Calcium 7.6 L (8.7-10.3) mg/dL Microbiology - Last 24 Hours (Table) 10/07/23 12:45 Blood Culture - Preliminary Blood 10/07/23 12:30 Blood Culture - Preliminary Blood Assessment and Plan (1) Colitis Current Visit: Yes Status: Acute Code(s): K52.9 - NONINFECTIVE GASTROENTERITIS AND COLITIS, UNSPECIFIED SNOMED Code(s): 77753537 (2) COVID-19 Current Visit: Yes Status: Acute Code(s): U07.1 - COVID-19 SNOMED Code(s): 998930597 Plan: 1patient presented hospital with sepsis in this patient who did have a fever elevated white count tachycardia source is likely colitis and a question of ischemic versus infectious we will likely require for the enteric gram-negative both aerobes and anaerobes. 2patient did tested positive for COVID-19 however the patient is not hypoxic and not been evidence of any acute infiltrate on chest x-ray treatment will be mostly supportive.patient to continue with the zinc and ascorbic acid Lovenox 3 stool for C. difficile negative stool cultures are currently pending 4patient did have resolution of fever and white count has normalized, patient to continue with Zosyn while waiting for the work-up to be completed. Dictation was produced using [employer] dictation software. please excuse any grammatical, word or spelling errors. Time with Patient: Less than 30
--- NOTE | 2023-10-10 12:53 | P.PN ---
Subjective Progress Note Date: 10/10/23 CHIEF COMPLAINT: Colitis HISTORY OF PRESENT ILLNESS: Patient had episode of vomiting again this morning. He continues to have diarrhea. Nursing staff is now reporting blood in the stools. Stool for C. diff was negative. He does have right-sided abdominal pain. Afebrile. WBC is down from 13.42 to 8.53 hgb 10.2 platelets 258 PHYSICAL EXAM: VITAL SIGNS: Reviewed. GENERAL: Well-developed in no acute distress. ABDOMEN: Soft. nondistended. Diffuse tenderness but more so on the right side of the abdomen with palpation NEUROLOGIC: Alert and oriented. Cranial nerves II through XII grossly intact. ASSESSMENT: 1. Colitis of the ascending colon likely an infectious/inflammatory etiology per computed tomography scan findings 2. Covid PLAN: -Patient scheduled for colonoscopy on , 10/11/[address] dozier -Start bowel prep today -Continue clear liquid diet -Nothing by mouth after midnight -Antibiotics per ID service Physician Manager Banquet note has been reviewed by physician. Signing provider agrees with the documented findings, assessment, and plan of care. Objective - Vital Signs Vital signs: Vital Signs Temp 97.6 F 10/10/23 08:17 Pulse 87 10/10/23 08:17 Resp 18 10/10/23 08:17 BP 137/68 10/10/23 08:17 Pulse Ox 97 10/10/23 08:17 FiO2 Intake & Output 10/09/23 10/10/23 10/10/23 18:59 06:59 18:59 Other: Voiding Method External Catheter Diaper Diaper # Voids 2 2 # Bowel Movements 1 2 - Labs CBC & Chem 7: 10/10/23 05:38 10/10/23 05:38 Labs: Abnormal Lab Results - Last 24 Hours (Table) 10/09/23 10/09/23 10/10/23 Range/Units 16:22 19:53 05:05 RBC (4.40-5.60) X 10*6/uL Hgb (13.0-17.0) g/dL Hct (39.6-50.0) % MCHC (32.0-37.0) g/dL RDW (11.5-14.5) % Lymphocytes # (0.90-5.00) X 10*3/uL Carbon Dioxide (21.6-31.8) mmol/L Anion Gap (4.00-12.00) mmol/L BUN (9.0-27.0) mg/dL BUN/Creatinine Ratio (12.00-20.00) Ratio Glucose (70-110) mg/dL POC Glucose (mg/dL) 143 H 140 H 229 H (70-110) mg/dL Calcium (8.7-10.3) mg/dL 10/10/23 10/10/23 10/10/23 Range/Units 05:38 05:38 11:55 RBC 3.71 L (4.40-5.60) X 10*6/uL Hgb 10.2 L (13.0-17.0) g/dL Hct 32.6 L (39.6-50.0) % MCHC 31.3 L (32.0-37.0) g/dL RDW 15.7 H (11.5-14.5) % Lymphocytes # 0.88 L (0.90-5.00) X 10*3/uL Carbon Dioxide 18.9 L (21.6-31.8) mmol/L Anion Gap 13.10 H (4.00-12.00) mmol/L BUN 6.6 L (9.0-27.0) mg/dL BUN/Creatinine Ratio 7.33 L (12.00-20.00) Ratio Glucose 240 H (70-110) mg/dL POC Glucose (mg/dL) 165 H (70-110) mg/dL Calcium 7.6 L (8.7-10.3) mg/dL Microbiology - Last 24 Hours (Table) 10/07/23 12:45 Blood Culture - Preliminary Blood 10/07/23 12:30 Blood Culture - Preliminary Blood
[2023-10-10 16:01] LABS: Glucose,Whole Blood 182 mg/dL (70-110)
[2023-10-10 20:43] LABS: Glucose,Whole Blood 63 mg/dL (70-110)
[2023-10-10 21:01] LABS: Glucose,Whole Blood 76 mg/dL (70-110)
[2023-10-10] MEDS: ATORVASTATIN 40 MG TAB PO SCH (21:38)
[2023-10-10] MEDS ORDERED: ONDANSETRON 4 MG/2 ML VIAL IVP PRN (23:50)
[2023-10-11 01:13] LABS: Glucose,Whole Blood 148 mg/dL (70-110)
[2023-10-11 06:01] LABS: Glucose,Whole Blood 267 mg/dL (70-110)
[2023-10-11] MEDS: LEVOTHYROXINE 100 MCG TAB PO SCH (06:24)
[2023-10-11 06:33] LABS: African American GFR (CKD) >90 (>60 ml/min/1.73 sqM); Anion Gap 13 mmol/L; Blood Urea Nitrogen 5 mg/dL (9-20); Calcium 7.7 mg/dL (8.4-10.2); Carbon Dioxide 17 mmol/L (22-30); Chloride 104 mmol/L (98-107); Glucose 249 mg/dL (74-99); Non-African American GFR(CKD) 87 (>60 ml/min/1.73 sqM); Potassium 4.6 mmol/L (3.5-5.1); Sodium 134 mmol/L (137-145)
[2023-10-11 06:37] LABS: Basophils % (A) 1 %; Eosinophils # (A) 0.4 k/uL (0-0.7); Eosinophils % (A) 6 %; HCT 36.1 % (39.0-53.0); HGB 10.9 gm/dL (13.0-17.5); Hypochromasia Marked; Lymphocytes # (A) 0.6 k/uL (1.0-4.8); Lymphocytes % (A) 9 %; MCH 28.7 pg (25.0-35.0); MCHC 30.1 g/dL (31.0-37.0); Mean Platelet Volume 8.7; Monocytes # (A) 0.4 k/uL (0-1.0); Monocytes % (A) 6 %; Neutrophils # (A) 4.8 k/uL (1.3-7.7); Neutrophils % (A) 76 %; Platelet Count 245 k/uL (150-450); RBC 3.78 m/uL (4.30-5.90); RDW 14.9 % (11.5-15.5); WBC 6.4 k/uL (3.8-10.6)
[2023-10-11] MEDS: INSULIN ASPART (NovoLOG) 100 UNIT/ML VIAL SQ SCH ×3 (06:52→17:52)
[2023-10-11 06:55] LABS: MCV 95.5 fL (80.0-100.0)
[2023-10-11] MEDS ORDERED: INSULIN ASPART (NovoLOG) 100 UNIT/ML VIAL SQ SCH (07:30)
[2023-10-11] MEDS: ASCORBIC ACID 500 MG TAB PO SCH ×2 (09:14→11:21)
[2023-10-11] MEDS: CHOLECALCIFEROL 25 MCG (1000 IU) TABLET PO SCH ×2 (09:14→11:21)
[2023-10-11] MEDS: ZINC SULFATE 220 MG CAP PO SCH ×2 (09:14→11:21)
[2023-10-11] MEDS: PIPERACILLIN-TAZOBACTAM 3.375 GM in SODIUM CHLORIDE 0.9% 100 ML IVPB SCH ×2 (09:24→16:00)
[2023-10-11] MEDS: PANTOPRAZOLE 40 MG/10 ML VIAL IVP SCH ×2 (09:25→21:54)
[2023-10-11] MEDS: METOPROLOL TARTRATE 12.5 MG TAB PO SCH ×3 (09:27→21:53)
[2023-10-11] MEDS: SODIUM CHLORIDE 0.9% 1,000 ML IV SCH (09:28)
[2023-10-11] MEDS ORDERED: PROPOFOL 10 MG/ML 20 ML VIAL IV ONE (10:22)
[2023-10-11] MEDS ORDERED: IV FLUID CONTINUATION 1,000 ML IV ONE (10:26)
--- NOTE | 2023-10-11 10:42 | P.OP ---
Date of Procedure: 10/11/23 Preoperative Diagnosis: Colitis Postoperative Diagnosis: Colitis Procedure(s) Performed: Colonoscopy Anesthesia: MAC Surgeon: Robbie Johnson Pathology: other (Transverse colon, sigmoid colon, rectum) Condition: stable Disposition: PACU Description of Procedure: The patient's placed on the endoscopy table in the lateral position. He received IV sedation. Digital rectal exam performed which revealed a large amount liquid stool. The flexible colonoscope was then placed patient anus and passed with colon. Patient obvious colitis of the colon. This extended from the rectum to the transverse colon. Due to the poor prep scope advanced further than the transverse colon. Biopsy the transverse colon was performed. There is evidence of plantar colitis in the transverse colon. The colitis extended distally.. A biopsy the sigmoid colon was PERFORMED and a biopsy rectus performed. The patient tolerated procedure well.
--- NOTE | 2023-10-11 10:56 | P.PN ---
Subjective Progress Note Date: 10/11/23 Patient seen at 9:30 CHIEF COMPLAINT: Colitis HISTORY OF PRESENT ILLNESS: Patient scheduled for colonoscopy today. He did not complete the full bowel prep. Stools still have small pieces of stool. Denies any nausea or vomiting. Vital stable. WBC 6.4HB 10.9 platelets 245 sodium 134 potassium is 4.6 creatinine 0.89 PHYSICAL EXAM: VITAL SIGNS: Reviewed. GENERAL: Well-developed in no acute distress. ABDOMEN: Soft. nondistended. Diffuse tenderness but more so on the right side of the abdomen with palpation NEUROLOGIC: Alert and oriented. Cranial nerves II through XII grossly intact. ASSESSMENT: 1. Colitis of the ascending colon likely an infectious/inflammatory etiology per computed tomography scan findings 2. Covid PLAN: -Patient scheduled for colonoscopy today Physician Beading Installer note has been reviewed by physician. Signing provider agrees with the documented findings, assessment, and plan of care. Objective - Vital Signs Vital signs: Vital Signs Temp 97.6 F 10/11/23 01:11 Pulse 82 10/11/23 01:11 Resp 18 10/11/23 10:19 BP 121/65 10/11/23 01:11 Pulse Ox 95 10/11/23 01:11 FiO2 Intake & Output 10/10/23 10/11/23 10/11/23 18:59 06:59 18:59 Intake Total 300 Balance 300 Intake: IV 300 Other: Voiding Method Diaper Diaper Diaper # Voids 5 1 # Bowel Movements 4 1 1 - Labs CBC & Chem 7: 10/11/23 05:20 10/11/23 05:20 Labs: Abnormal Lab Results - Last 24 Hours (Table) 10/10/23 10/10/23 10/10/23 Range/Units 11:55 15:59 20:42 RBC (4.30-5.90) m/uL Hgb (13.0-17.5) gm/dL Hct (39.0-53.0) % MCHC (31.0-37.0) g/dL Lymphocytes # (1.0-4.8) k/uL Sodium (137-145) mmol/L Carbon Dioxide (22-30) mmol/L BUN (9-20) mg/dL Glucose (74-99) mg/dL POC Glucose (mg/dL) 165 H 182 H 63 L (70-110) mg/dL Calcium (8.4-10.2) mg/dL 10/11/23 10/11/23 10/11/23 Range/Units 01:11 05:20 05:20 RBC 3.78 L (4.30-5.90) m/uL Hgb 10.9 L (13.0-17.5) gm/dL Hct 36.1 L (39.0-53.0) % MCHC 30.1 L (31.0-37.0) g/dL Lymphocytes # 0.6 L (1.0-4.8) k/uL Sodium 134 L (137-145) mmol/L Carbon Dioxide 17 L (22-30) mmol/L BUN 5 L (9-20) mg/dL Glucose 249 H (74-99) mg/dL POC Glucose (mg/dL) 148 H (70-110) mg/dL Calcium 7.7 L (8.4-10.2) mg/dL 10/11/23 Range/Units 06:00 RBC (4.30-5.90) m/uL Hgb (13.0-17.5) gm/dL Hct (39.0-53.0) % MCHC (31.0-37.0) g/dL Lymphocytes # (1.0-4.8) k/uL Sodium (137-145) mmol/L Carbon Dioxide (22-30) mmol/L BUN (9-20) mg/dL Glucose (74-99) mg/dL POC Glucose (mg/dL) 267 H (70-110) mg/dL Calcium (8.4-10.2) mg/dL Microbiology - Last 24 Hours (Table) 10/07/23 12:45 Blood Culture - Preliminary Blood 10/07/23 12:30 Blood Culture - Preliminary Blood
[2023-10-11] MEDS: amLODIPine 10 MG TAB PO SCH (11:17)
[2023-10-11 11:47] LABS: Glucose,Whole Blood 286 mg/dL (70-110)
--- NOTE | 2023-10-11 12:58 | P.PN ---
Subjective Progress Note Date: 10/11/23 Principal diagnosis: Reason for follow-up is covid 19 and colitis Patient is a 72-year-old male with a past medical history significant for diabetes mellitus hypertension hyperlipidemia coronary disease [place] bipolar and PTSD patient was brought into the hospital from the local snf for evaluation of generalized weakness decreased activity decreased oral intake and incontinence of stool, patient did test positive for covid19 , CT abdomen and pelvis did show evidence of colitis involving descending colon. Patient is status post colonoscopy on 10/11/2023 with a biopsy pending On today's evaluation that is 10/11/2023, the patient remains to be afebrile , the patient is breathing comfortably on room air and denies any shortness of breath, the patient denies chest pain however he did have some dry cough , patient denies abdominal pain, no nausea/vomiting still having some diarrhea Patient white count is 6.4, creatinine 0.89, blood cultures are pending Objective - Vital Signs Vital signs: Vital Signs Temp 97.6 F 10/11/23 01:11 Pulse 82 10/11/23 01:11 Resp 18 10/11/23 10:19 BP 121/65 10/11/23 01:11 Pulse Ox 95 10/11/23 01:11 FiO2 Intake & Output 10/10/23 10/11/23 10/11/23 18:59 06:59 18:59 Intake Total 300 Balance 300 Intake: IV 300 Other: Voiding Method Diaper Diaper Diaper # Voids 5 1 # Bowel Movements 4 1 1 - Exam GENERAL DESCRIPTION: An elderly male lying in bed in no distress RESPIRATORY SYSTEM: Unlabored breathing , decreased intensity of breath sounds HEART: S1 S2 regular rate and rhythm , ABDOMEN: Soft , no tenderness EXTREMITIES: No edema feet - Labs CBC & Chem 7: 10/11/23 05:20 10/11/23 05:20 Labs: Abnormal Lab Results - Last 24 Hours (Table) 10/10/23 10/10/23 10/10/23 Range/Units 11:55 15:59 20:42 RBC (4.30-5.90) m/uL Hgb (13.0-17.5) gm/dL Hct (39.0-53.0) % MCHC (31.0-37.0) g/dL Lymphocytes # (1.0-4.8) k/uL Sodium (137-145) mmol/L Carbon Dioxide (22-30) mmol/L BUN (9-20) mg/dL Glucose (74-99) mg/dL POC Glucose (mg/dL) 165 H 182 H 63 L (70-110) mg/dL Calcium (8.4-10.2) mg/dL 10/11/23 10/11/23 10/11/23 Range/Units 01:11 05:20 05:20 RBC 3.78 L (4.30-5.90) m/uL Hgb 10.9 L (13.0-17.5) gm/dL Hct 36.1 L (39.0-53.0) % MCHC 30.1 L (31.0-37.0) g/dL Lymphocytes # 0.6 L (1.0-4.8) k/uL Sodium 134 L (137-145) mmol/L Carbon Dioxide 17 L (22-30) mmol/L BUN 5 L (9-20) mg/dL Glucose 249 H (74-99) mg/dL POC Glucose (mg/dL) 148 H (70-110) mg/dL Calcium 7.7 L (8.4-10.2) mg/dL 10/11/23 Range/Units 06:00 RBC (4.30-5.90) m/uL Hgb (13.0-17.5) gm/dL Hct (39.0-53.0) % MCHC (31.0-37.0) g/dL Lymphocytes # (1.0-4.8) k/uL Sodium (137-145) mmol/L Carbon Dioxide (22-30) mmol/L BUN (9-20) mg/dL Glucose (74-99) mg/dL POC Glucose (mg/dL) 267 H (70-110) mg/dL Calcium (8.4-10.2) mg/dL Microbiology - Last 24 Hours (Table) 10/07/23 12:45 Blood Culture - Preliminary Blood 10/07/23 12:30 Blood Culture - Preliminary Blood Assessment and Plan (1) Colitis Current Visit: Yes Status: Acute Code(s): K52.9 - NONINFECTIVE GASTROENTERITIS AND COLITIS, UNSPECIFIED SNOMED Code(s): 40919876 (2) COVID-19 Current Visit: Yes Status: Acute Code(s): U07.1 - COVID-19 SNOMED Code(s): 790264973 Plan: 1patient presented hospital with sepsis in this patient who did have a fever elevated white count tachycardia source is likely colitis and a question of ischemic versus infectious we will likely require for the enteric gram-negative both aerobes and anaerobes. 2patient did tested positive for COVID-19 however the patient is not hypoxic and not been evidence of any acute infiltrate on chest x-ray treatment will be mostly supportive.patient to continue with the zinc and ascorbic acid Lovenox 3 stool for C. difficile negative stool cultures are currently pending 4patient did have some clinical improvement and will continue with Zosyn while waiting for the work-up to be completed. Dictation was produced using [employer] dictation software. please excuse any grammatical, word or spelling errors. Time with Patient: Less than 30
[2023-10-11 16:44] LABS: Glucose,Whole Blood 389 mg/dL (70-110)
[2023-10-11 21:18] LABS: Glucose,Whole Blood 434 mg/dL (70-110)
[2023-10-11] MEDS ORDERED: DEXTROSE 50% SYRINGE 50 ML IVP PRN ×2 (21:46)
[2023-10-11] MEDS: ATORVASTATIN 40 MG TAB PO SCH (21:53)
[2023-10-11] MEDS ORDERED: INSULIN DETEMIR (LEVEMIR) 100 UNIT/ML SYR SQ SCH (22:00)
--- NOTE | 2023-10-11 22:06 | P.PN ---
Subjective This is a pleasant 72 years old male from retirement with past medical history of Coronary Artery Disease status post CABG , Heart Failure, Diabetes Mellitus, Hyperlipidemia, Hypertension, Syncope, thyroid disease, CT of the brain in September 2017 demonstrated old right lacunar infarct, Bipolar, PTSD. PCP is Dr. 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 He denies chest pain dyspnea or coughing No vomiting but he has somewhat poor appetite He denies dysuria , but there was concern about urgency as he was wetting himself as per officer at bedside while he was in retirement. No no headache dizziness weakness or numbness in extremities. He denies smoking alcohol or illicit drugs Patient has a fever of 102, Postoperative vitals are stable, he is mildly tachycardic but saturating 97% on room air showing mild leukocytosis 12.5, hemoglobin 12.5, platelet count normal. He has some evidence of lymphopenia 0.9 and left shift with neutrophilia at 10.4%. INR 1.0. BMP is unremarkable. Carbon dioxide 21. Glucose elevated at 200. Lactic acid 2.3 which is mildly elevated. Liver enzymes are unremarkable, ammonia, creatinine kinase and troponin are all negative. ProBNP is 3430. Urine analysis showing 2+ protein, 3+ glucose, 2+ ketones with no evidence of infection. Acetone is positive. Influenza and RSV are negative but Covid test came back positive Chest x-ray: No acute cardiopulmonary process CT of the brain: No acute process. Atrophy KUB:Nonspecific bowel gas pattern, may represent fecal stasis/ileus. If there is persistent concern, follow-up radiographs or CT may be considered. Generous him to IV fluids and Rocephin in the emergency room 10/08/2023 Patient today looks more comfortable more relaxed compared to severe pallor and weakness yesterday. He still feels generally weak. However other symptoms she had yesterday looks improving He tolerated his regular diet this morning with breakfast, he denies abdominal pain or tenderness however his abdomen is still mildly distended, he said that he has 2-3 bowel movement last night but no diarrhea. Or improvement. He denies specific urinary complaints and his urine analysis is not suspicious of infection. His fever on admission has subsided. And dorsal Vitas looks stable. He is on room air. WBC slightly worse 14,000, hemoglobin 11.7, creatinine normal At 0.9. LDH 235 which is within the reference range and CRP mildly elevated at 6.5 as well as Pro-calcitonin 0.23 Repeat KUB today showing a still persistent ileus therefore going to order CT of the abdomen and pelvis and place him on liquid diet. Patient continued on normal saline 100 mL/h, vitamin C, vitamin D zinc, Lovenox and Protonix 10/09/2023 Patient had bowel movement with blunt early this morning He feels generally weak, he still has poor appetite He has mild right abdominal pain with mild tenderness and no rebound tenderness. Vitals stable. The WBC 13,000, hemoglobin 11.1. He remains on normal saline 100 mL per hour and Zosyn. Plan for colonoscopy on and 2 days 10/09/2023 Patient presents with ascending colitis Still complaining from abdominal pain Poor appetite Remains on Zosyn. Stool culture sent was started Objective - Vital Signs Vital signs: Vital Signs Temp 97.6 F 10/10/23 08:17 Pulse 87 10/10/23 08:17 Resp 18 10/10/23 08:17 BP 137/68 10/10/23 08:17 Pulse Ox 97 10/10/23 08:17 FiO2 Intake & Output 10/09/23 10/10/23 10/10/23 18:59 06:59 18:59 Other: Voiding Method External Catheter Diaper Diaper # Voids 2 2 # Bowel Movements 1 2 - Exam GENERAL: The patient is alert and oriented x3, not in any acute distress. Well developed, well nourished. HEENT: Pupils are round and equally reacting to light. EOMI. No scleral icterus. No conjunctival pallor. Normocephalic, atraumatic. No pharyngeal erythema. No thyromegaly. CARDIOVASCULAR: S1 and S2 present. No murmurs, rubs, or gallops. PULMONARY: Chest is clear to auscultation, no wheezing , no crackles. -ABDOMEN: Soft, nontender, mildly distended, normoactive bowel sounds. No palpable organomegaly. MUSCULOSKELETAL: No joint swelling or deformity. EXTREMITIES: No cyanosis, clubbing, or pedal edema. NEUROLOGICAL: Gross neurological examination did not reveal any focal deficits. SKIN: No rashes. no petechiae. - Labs CBC & Chem 7: 10/11/23 05:20 10/11/23 05:20 Labs: Abnormal Lab Results - Last 24 Hours (Table) 10/09/23 10/09/23 10/10/23 Range/Units 16:22 19:53 05:05 RBC (4.40-5.60) X 10*6/uL Hgb (13.0-17.0) g/dL Hct (39.6-50.0) % MCHC (32.0-37.0) g/dL RDW (11.5-14.5) % Lymphocytes # (0.90-5.00) X 10*3/uL Carbon Dioxide (21.6-31.8) mmol/L Anion Gap (4.00-12.00) mmol/L BUN (9.0-27.0) mg/dL BUN/Creatinine Ratio (12.00-20.00) Ratio Glucose (70-110) mg/dL POC Glucose (mg/dL) 143 H 140 H 229 H (70-110) mg/dL Calcium (8.7-10.3) mg/dL 10/10/23 10/10/23 10/10/23 Range/Units 05:38 05:38 11:55 RBC 3.71 L (4.40-5.60) X 10*6/uL Hgb 10.2 L (13.0-17.0) g/dL Hct 32.6 L (39.6-50.0) % MCHC 31.3 L (32.0-37.0) g/dL RDW 15.7 H (11.5-14.5) % Lymphocytes # 0.88 L (0.90-5.00) X 10*3/uL Carbon Dioxide 18.9 L (21.6-31.8) mmol/L Anion Gap 13.10 H (4.00-12.00) mmol/L BUN 6.6 L (9.0-27.0) mg/dL BUN/Creatinine Ratio 7.33 L (12.00-20.00) Ratio Glucose 240 H (70-110) mg/dL POC Glucose (mg/dL) 165 H (70-110) mg/dL Calcium 7.6 L (8.7-10.3) mg/dL Microbiology - Last 24 Hours (Table) 10/07/23 12:45 Blood Culture - Preliminary Blood 10/07/23 12:30 Blood Culture - Preliminary Blood Assessment and Plan Assessment: Covid infection without overt pneumonia Fever most likely secondary to Covid infection or bacterial rinfection Possible acute Covid gastroenteritis with ileus , vs others sepsis with fever and leukocytosis Generalized weakness and malaise secondary to above Mild metabolic encephalopathy Diabetes mellitus, with hyperglycemia Hypothyroidism With high TSH, POA Hypertension Hyperlipidemia History of osteoarthritis Hypothyroidism History of coronary artery disease status post CABG Chronic heart failure, unknown ejection fraction History of syncope History of right lacunar infarct Bipolar, PTSD, not an active issue Plan: Start vitamin D, vitamin C and zinc Continue with IV hydration Continue Zosyn Colonoscopy on consult ID And surgery teams Insulin sliding scale continue with lower dose of levothyroxine 100 g daily ( previously was 112 g daily) Labs and medication were reviewed.. Continue same treatment. Continue with symptomatic treatment. Resume home medication. Monitor lytes and vitals. DVT and GI prophylaxis. Further recommendations depends on the clinical course of the patient DVT prophylaxis: Subcutaneous Lovenox GI Prophylaxis: Ppi Prognosis is guarded
--- NOTE | 2023-10-11 22:08 | P.PN ---
Subjective This is a pleasant 72 years old male from [facility] with past medical history of Coronary Artery Disease status post CABG , Heart Failure, Diabetes Mellitus, Hyperlipidemia, Hypertension, Syncope, thyroid disease, CT of the brain in September 2017 demonstrated old right lacunar infarct, Bipolar, PTSD. PCP is Dr. 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 He denies chest pain dyspnea or coughing No vomiting but he has somewhat poor appetite He denies dysuria , but there was concern about urgency as he was wetting himself as per officer at bedside while he was in [facility]. No no headache dizziness weakness or numbness in extremities. He denies smoking alcohol or illicit drugs Patient has a fever of 102, Postoperative vitals are stable, he is mildly tachycardic but saturating 97% on room air showing mild leukocytosis 12.5, hemoglobin 12.5, platelet count normal. He has some evidence of lymphopenia 0.9 and left shift with neutrophilia at 10.4%. INR 1.0. BMP is unremarkable. Carbon dioxide 21. Glucose elevated at 200. Lactic acid 2.3 which is mildly elevated. Liver enzymes are unremarkable, ammonia, creatinine kinase and troponin are all negative. ProBNP is 3430. Urine analysis showing 2+ protein, 3+ glucose, 2+ ketones with no evidence of infection. Acetone is positive. Influenza and RSV are negative but Covid test came back positive Chest x-ray: No acute cardiopulmonary process CT of the brain: No acute process. Atrophy KUB:Nonspecific bowel gas pattern, may represent fecal stasis/ileus. If there is persistent concern, follow-up radiographs or CT may be considered. Generous him to IV fluids and Rocephin in the emergency room 10/08/2023 Patient today looks more comfortable more relaxed compared to severe pallor and weakness yesterday. He still feels generally weak. However other symptoms she had yesterday looks improving He tolerated his regular diet this morning with breakfast, he denies abdominal pain or tenderness however his abdomen is still mildly distended, he said that he has 2-3 bowel movement last night but no diarrhea. Or improvement. He denies specific urinary complaints and his urine analysis is not suspicious of infection. His fever on admission has subsided. And dorsal Vitas looks stable. He is on room air. WBC slightly worse 14,000, hemoglobin 11.7, creatinine normal At 0.9. LDH 235 which is within the reference range and CRP mildly elevated at 6.5 as well as Pro-calcitonin 0.23 Repeat KUB today showing a still persistent ileus therefore going to order CT of the abdomen and pelvis and place him on liquid diet. Patient continued on normal saline 100 mL/h, vitamin C, vitamin D zinc, Lovenox and Protonix 10/09/2023 Patient had bowel movement with blunt early this morning He feels generally weak, he still has poor appetite He has mild right abdominal pain with mild tenderness and no rebound tenderness. Vitals stable. The WBC 13,000, hemoglobin 11.1. He remains on normal saline 100 mL per hour and Zosyn. Plan for colonoscopy on and 2 days 10/10/2023 Patient presents with ascending colitis Still complaining from abdominal pain Poor appetite Remains on Zosyn. Stool culture sent was started 10/11/2023 Patient showing partial improvement, he was able to be 25-50% of his diet today Right abdominal pain and tenderness looks better but not resolved He underwent colonoscopy today but because of poor preparation ascending colon could not be evaluated, biopsy was taken of from distal:. Patient had liquid stool. Patient remains on Zosyn Follow-up stool culture. Increase insulin Levemir 12 units and NovoLog famous up to 5 units for hyperglycemic Objective - Vital Signs Vital signs: Vital Signs Temp 98.4 F 10/11/23 12:43 Pulse 82 10/11/23 12:43 Resp 14 10/11/23 12:43 BP 134/77 10/11/23 12:43 Pulse Ox 99 10/11/23 12:43 FiO2 Intake & Output 10/11/23 10/11/23 10/12/23 06:59 18:59 06:59 Intake Total 700 Balance 700 Intake: IV 300 Oral 400 Other: Voiding Method Diaper Diaper # Voids 1 4 # Bowel Movements 1 4 - Exam GENERAL: The patient is alert and oriented x3, not in any acute distress. Well developed, well nourished. HEENT: Pupils are round and equally reacting to light. EOMI. No scleral icterus. No conjunctival pallor. Normocephalic, atraumatic. No pharyngeal erythema. No thyromegaly. CARDIOVASCULAR: S1 and S2 present. No murmurs, rubs, or gallops. PULMONARY: Chest is clear to auscultation, no wheezing , no crackles. -ABDOMEN: Soft, nontender, mildly distended, normoactive bowel sounds. No pal pable organomegaly. MUSCULOSKELETAL: No joint swelling or deformity. EXTREMITIES: No cyanosis, clubbing, or pedal edema. NEUROLOGICAL: Gross neurological examination did not reveal any focal deficits. SKIN: No rashes. no petechiae. - Labs CBC & Chem 7: 10/11/23 05:20 10/11/23 05:20 Labs: Abnormal Lab Results - Last 24 Hours (Table) 10/11/23 10/11/23 10/11/23 Range/Units 01:11 05:20 05:20 RBC 3.78 L (4.30-5.90) m/uL Hgb 10.9 L (13.0-17.5) gm/dL Hct 36.1 L (39.0-53.0) % MCHC 30.1 L (31.0-37.0) g/dL Lymphocytes # 0.6 L (1.0-4.8) k/uL Sodium 134 L (137-145) mmol/L Carbon Dioxide 17 L (22-30) mmol/L BUN 5 L (9-20) mg/dL Glucose 249 H (74-99) mg/dL POC Glucose (mg/dL) 148 H (70-110) mg/dL Calcium 7.7 L (8.4-10.2) mg/dL 10/11/23 10/11/23 10/11/23 Range/Units 06:00 11:45 16:43 RBC (4.30-5.90) m/uL Hgb (13.0-17.5) gm/dL Hct (39.0-53.0) % MCHC (31.0-37.0) g/dL Lymphocytes # (1.0-4.8) k/uL Sodium (137-145) mmol/L Carbon Dioxide (22-30) mmol/L BUN (9-20) mg/dL Glucose (74-99) mg/dL POC Glucose (mg/dL) 267 H 286 H 389 H (70-110) mg/dL Calcium (8.4-10.2) mg/dL 10/11/23 Range/Units 21:17 RBC (4.30-5.90) m/uL Hgb (13.0-17.5) gm/dL Hct (39.0-53.0) % MCHC (31.0-37.0) g/dL Lymphocytes # (1.0-4.8) k/uL Sodium (137-145) mmol/L Carbon Dioxide (22-30) mmol/L BUN (9-20) mg/dL Glucose (74-99) mg/dL POC Glucose (mg/dL) 434 H (70-110) mg/dL Calcium (8.4-10.2) mg/dL Microbiology - Last 24 Hours (Table) 10/07/23 12:45 Blood Culture - Preliminary Blood 10/07/23 12:30 Blood Culture - Preliminary Blood Assessment and Plan Assessment: Covid infection without overt pneumonia Fever most likely secondary to Covid infection or bacterial rinfection Possible acute Covid gastroenteritis with ileus , vs others sepsis with fever and leukocytosis Generalized weakness and malaise secondary to above Mild metabolic encephalopathy Diabetes mellitus, with hyperglycemia Hypothyroidism With high TSH, POA Hypertension Hyperlipidemia History of osteoarthritis Hypothyroidism History of coronary artery disease status post CABG Chronic heart failure, unknown ejection fraction History of syncope History of right lacunar infarct Bipolar, PTSD, not an active issue Plan: Start vitamin D, vitamin C and zinc Continue with IV hydration Continue Zosyn Colonoscopy on consult ID And surgery teams Insulin sliding scale continue with lower dose of levothyroxine 100 g daily ( previously was 112 g daily) Labs and medication were reviewed.. Continue same treatment. Continue with symptomatic treatment. Resume home medication. Monitor lytes and vitals. DVT and GI prophylaxis. Further recommendations depends on the clinical course of the patient DVT prophylaxis: Subcutaneous Lovenox GI Prophylaxis: Ppi Prognosis is guarded
[2023-10-12] MEDS: PIPERACILLIN-TAZOBACTAM 3.375 GM in SODIUM CHLORIDE 0.9% 100 ML IVPB SCH ×2 (00:39→08:11)
[2023-10-12 01:32] LABS: Glucose,Whole Blood 470 mg/dL (70-110)
[2023-10-12] MEDS ORDERED: INSULIN ASPART (NovoLOG) 100 UNIT/ML VIAL SQ ONE (03:16)
[2023-10-12 06:17] LABS: Glucose,Whole Blood 273 mg/dL (70-110)
[2023-10-12] MEDS: LEVOTHYROXINE 100 MCG TAB PO SCH (06:23)
[2023-10-12] MEDS: INSULIN ASPART (NovoLOG) 100 UNIT/ML VIAL SQ SCH ×4 (06:23→13:03)
[2023-10-12] MEDS: SODIUM CHLORIDE 0.9% 1,000 ML IV SCH ×2 (07:48→08:51)
[2023-10-12] MEDS: ZINC SULFATE 220 MG CAP PO SCH (08:11)
[2023-10-12] MEDS: ASCORBIC ACID 500 MG TAB PO SCH (08:11)
[2023-10-12] MEDS: CHOLECALCIFEROL 25 MCG (1000 IU) TABLET PO SCH (08:11)
[2023-10-12] MEDS: METOPROLOL TARTRATE 12.5 MG TAB PO SCH (08:11)
[2023-10-12] MEDS: amLODIPine 10 MG TAB PO SCH (08:11)
[2023-10-12] MEDS: PANTOPRAZOLE 40 MG/10 ML VIAL IVP SCH (08:12)
[2023-10-12 11:25] LABS: Glucose,Whole Blood 144 mg/dL (70-110)
--- NOTE | 2023-10-12 12:31 | P.PN ---
Subjective Progress Note Date: 10/12/23 CHIEF COMPLAINT: Colitis HISTORY OF PRESENT ILLNESS: Patient status post colonoscopy. Results revealed colitis and poor bowel prep. Biopsies were obtained. Patient is tolerating diet. He has no abdominal pain. He reports having bowel movements. Afebrile. PHYSICAL EXAM: VITAL SIGNS: Reviewed. GENERAL: Well-developed in no acute distress. ABDOMEN: Soft. nondistended. Nontender NEUROLOGIC: Alert and oriented. Cranial nerves II through XII grossly intact. ASSESSMENT: 1. Colitis 2. Covid PLAN: -Advance diet to regular -Patient can be discharged from surgical standpoint when medically clear -Antibiotics per ID service Physician Business Account Executive note has been reviewed by physician. Signing provider agrees with the documented findings, assessment, and plan of care. Objective - Vital Signs Vital signs: Vital Signs Temp 97.9 F 10/12/23 08:16 Pulse 85 10/12/23 08:16 Resp 20 10/12/23 10:05 BP 145/74 10/12/23 08:16 Pulse Ox 96 10/12/23 08:16 FiO2 Intake & Output 10/11/23 10/12/23 10/12/23 18:59 06:59 18:59 Intake Total 700 200 Balance 700 200 Intake: IV 300 Oral 400 200 Other: Voiding Method Diaper Diaper # Voids 4 3 # Bowel Movements 4 3 - Labs CBC & Chem 7: 10/11/23 05:20 10/11/23 05:20 Labs: Abnormal Lab Results - Last 24 Hours (Table) 10/11/23 10/11/23 10/12/23 Range/Units 16:43 21:17 01:29 POC Glucose (mg/dL) 389 H 434 H 470 H (70-110) mg/dL 10/12/23 10/12/23 Range/Units 06:16 11:24 POC Glucose (mg/dL) 273 H 144 H (70-110) mg/dL Microbiology - Last 24 Hours (Table) 10/08/23 15:37 Stool Culture - Preliminary Stool Kamilah albicans
--- NOTE | 2023-10-12 12:48 | P.PN ---
Subjective Progress Note Date: 10/12/23 Principal diagnosis: Reason for follow-up is covid 19 and colitis Patient is a 72-year-old male with a past medical history significant for diabetes mellitus hypertension hyperlipidemia coronary disease [place] bipolar and PTSD patient was [facility] for evaluation of generalized weakness decreased activity decreased oral intake and incontinence of stool, patient did test positive for covid19 , CT abdomen and pelvis did show evidence of colitis involving descending colon. Patient is status post colonoscopy on 10/11/2023 with a biopsy pending On today's evaluation that is 10/12/2023, the patient denies any fever or chills, the patient is breathing comfortably on room air and no need for any supplemental oxygen the patient denies chest pain shortness of breath did have occasional dry cough , patient denies nausea/vomiting, no abdominal pain and diarrhea has slowed down per the nurse aide Patient white count is 6.4, creatinine 0.89 as of 10/11/2023, blood cultures are negative, stool culture with Kamilah likely colonizer Objective - Vital Signs Vital signs: Vital Signs Temp 97.9 F 10/12/23 08:16 Pulse 85 10/12/23 08:16 Resp 20 10/12/23 10:05 BP 145/74 10/12/23 08:16 Pulse Ox 96 10/12/23 08:16 FiO2 Intake & Output 10/11/23 10/12/23 10/12/23 18:59 06:59 18:59 Intake Total 700 200 Balance 700 200 Intake: IV 300 Oral 400 200 Other: Voiding Method Diaper Diaper # Voids 4 3 # Bowel Movements 4 3 - Exam GENERAL DESCRIPTION: An elderly male lying in bed in no distress RESPIRATORY SYSTEM: Unlabored breathing , decreased intensity of breath sounds HEART: S1 S2 regular rate and rhythm , ABDOMEN: Soft , no tenderness EXTREMITIES: No edema feet - Labs CBC & Chem 7: 10/11/23 05:20 10/11/23 05:20 Labs: Abnormal Lab Results - Last 24 Hours (Table) 10/11/23 10/11/23 10/12/23 Range/Units 16:43 21:17 01:29 POC Glucose (mg/dL) 389 H 434 H 470 H (70-110) mg/dL 10/12/23 10/12/23 Range/Units 06:16 11:24 POC Glucose (mg/dL) 273 H 144 H (70-110) mg/dL Microbiology - Last 24 Hours (Table) 10/08/23 15:37 Stool Culture - Preliminary Stool Kamilah albicans Assessment and Plan (1) Colitis Current Visit: Yes Status: Acute Code(s): K52.9 - NONINFECTIVE GASTROENTERITIS AND COLITIS, UNSPECIFIED SNOMED Code(s): 72563263 (2) COVID-19 Current Visit: Yes Status: Acute Code(s): U07.1 - COVID-19 SNOMED Code(s): 257634826 Plan: 1patient presented hospital with sepsis in this patient who did have a fever elevated white count tachycardia source is likely colitis and a question of ischemic versus infectious we will likely require for the enteric gram-negative both aerobes and anaerobes. 2patient did tested positive for COVID-19 however the patient is not hypoxic and not been evidence of any acute infiltrate on chest x-ray treatment will be mostly supportive.patient to continue with the zinc and ascorbic acid Lovenox 3 stool for C. difficile negative stool cultures are currently growing Kamilah which is likely colonizer 4patient did have some clinical improvement and white count has normalized biopsy report pending however the patient has been cleared for discharge by surgery we will consider a ten-day course of oral Ceftin and Flagyl no discharge with close outpatient follow-up Dictation was produced using [employer] dictation software. please excuse any grammatical, word or spelling errors. Time with Patient: Less than 30
--- NOTE | 2023-10-12 13:39 | P.DS ---
Providers Date of admission: 10/07/23 17:32 Attending physician: Demetris Moreland MD Consults: 10/08/23 11:46 Consult Physician Routine Consulting Provider: Thierno Aguilar Consult Reason/Comments: fever Do you want consulting provider notified?: Already Contacted 10/08/23 11:52 Consult Physician Routine Consulting Provider: Robbie Johnson Consult Reason/Comments: ileus Do you want consulting provider notified?: Yes Primary care physician: Zaida Horton Hospital Course: Diagnoses: Ascending colitis Covid infection without overt pneumonia intestinal ileus , improved sepsis with fever and leukocytosis Generalized weakness and malaise secondary to above Mild metabolic encephalopathy Diabetes mellitus, with hyperglycemia Hypothyroidism With high TSH, POA Hypertension Hyperlipidemia History of osteoarthritis Hypothyroidism History of coronary artery disease status post CABG Chronic heart failure, unknown ejection fraction History of syncope History of right lacunar infarct Bipolar, PTSD, not an active issue Hospital course: This is a pleasant 72 years old male from [facility] with past medical history of Coronary Artery Disease status post CABG , Heart Failure, Diabetes Mellitus, Hyperlipidemia, Hypertension, Syncope, thyroid disease, CT of the brain in September 2017 demonstrated old right lacunar infarct, Bipolar, PTSD. PCP is Dr. Cerda This is a pleasant 72 years old male who presents with fever from [facility]. He was recently diagnosed with Covid without pneumonia however inflammatory markers were not significantly elevated, LDH was normal, CAT scan showed ascending colitis, patient was started on broad-spectrum antibiotics with Zosyn, infectious disease team were following the patient closely. The patient underwent colonoscopy with surgery team, biopsy were taken and still pending Patient showed interval improvement. His abdominal pain is minimal. Patient tolerates diet well. He eats about 75% of his meal. Patient denies any other symptoms A TSH was elevated similar to a low dose of levothyroxine to 100 g. We recommend to check thyroid function test in 2-3 months Sugar was adjusted to Levemir 12 units NovoLog 5 units with meals. Also is on metformin. Sugar controlled upon discharge. Patient denies any other new symptoms. Patient was cleared for discharge by surgery team and infectious disease team Patient will be discharged on short course of oral antibiotics Problems and management plan were discussed with the patient and he verbalized understanding and acceptance Patient was found stable and can be discharged home in guarded prognosis however he needs follow-up as an outpatient. Patient was instructed to follow up with PCP Dr. Pruitt within one week and patient agrees Patient was instructed to follow up with a surgeon Dr. Armstrong in 2 weeks after discharge follow-up the results of your colonoscopy biopsy Physical exam Gen: patient is a AAOx3, no distress CVS: S1-S2, RRR, no murmur Lungs: B/L CTA, no wheezing Abdomen: soft, no distention, no tenderness, positive bowel sounds Extremity: no leg edema or induration Time spent more than 35 minutes Patient Condition at Discharge: Fair Plan - Discharge Summary New Discharge Prescriptions: New cefUROXime axetiL [Ceftin] 500 mg PO BID 10 Days #20 tab metroNIDAZOLE [Flagyl] 500 mg PO TID #30 tab INSULIN ASPART (NovoLOG) [NovoLOG (formulary)] 5 unit SQ AC-TID each Zinc Sulfate [Orazinc] 220 mg PO DAILY cap Insulin Detemir (Levemir) [Levemir] 12 unit SQ HS each Levothyroxine Sodium [Synthroid] 100 mcg PO DAILY@0630 tab Acetaminophen Tab [Tylenol] 650 mg PO Q6HR PRN tab PRN Reason: Mild Pain Or Fever > 100.5 Ascorbic Acid [Vitamin C] 1,000 mg PO DAILY tab Cholecalciferol [Vitamin D3 (25 Mcg = 1000 Iu)] 50 mcg PO DAILY tab Continue metFORMIN HCL 500 mg PO TID Atorvastatin [Lipitor] 40 mg PO HS amLODIPine [Norvasc] 10 mg PO DAILY #30 tab Insulin Regular, Human [Novolin R] See Protocol SQ ACHS Metoprolol Tartrate [Lopressor] 12.5 mg PO BID Pantoprazole [Protonix] 40 mg PO DAILY Discontinued Levothyroxine Sodium [Synthroid] 112 mcg PO DAILY Discharge Medication List metFORMIN HCL 500 mg PO TID 02/06/19 [History] Atorvastatin [Lipitor] 40 mg PO HS 10/09/19 [History] amLODIPine [Norvasc] 10 mg PO DAILY #30 tab 11/09/22 [Rx] Metoprolol Tartrate [Lopressor] 12.5 mg PO BID 09/16/23 [History] Insulin Regular, Human [Novolin R] See Protocol SQ ACHS 10/07/23 [History] Pantoprazole [Protonix] 40 mg PO DAILY 10/07/23 [History] Acetaminophen Tab [Tylenol] 650 mg PO Q6HR PRN tab 10/12/23 [Rx] Ascorbic Acid [Vitamin C] 1,000 mg PO DAILY tab 10/12/23 [Rx] Cholecalciferol [Vitamin D3 (25 Mcg = 1000 Iu)] 50 mcg PO DAILY tab 10/12/23 [Rx] INSULIN ASPART (NovoLOG) [NovoLOG (formulary)] 5 unit SQ AC-TID each 10/12/23 [Rx] Insulin Detemir (Levemir) [Levemir] 12 unit SQ HS each 10/12/23 [Rx] Levothyroxine Sodium [Synthroid] 100 mcg PO DAILY@0630 tab 10/12/23 [Rx] Zinc Sulfate [Orazinc] 220 mg PO DAILY cap 10/12/23 [Rx] cefUROXime axetiL [Ceftin] 500 mg PO BID 10 Days #20 tab 10/12/23 [Rx] metroNIDAZOLE [Flagyl] 500 mg PO TID #30 tab 10/12/23 [Rx] Follow up Appointment(s)/Referral(s): Sol Cerda MD [Primary Care Provider] - 1-2 days Robbie Johnson MD [STAFF PHYSICIAN] - 2 Weeks (follow up your colon biopsy) Activity/Diet/Wound Care/Special Instructions: resume your diet activity is restricted till you see your doctor Discharge Disposition: OTHER INSTITUTION NOT DEFINED
[2023-10-12 14:02] VITALS: BMI 30.4
[2023-10-12 15:45] VITALS: BP 138/70; PULSE 88; RESP 19; TEMP 97.4
--- NOTE | 2023-10-15 17:24 | CDI ---
Documentation Clarification Form Date: 10/15/2023 05:09:54 PM From: Gretel Richardson Phone: Admit Date: 10/07/2023 05:32:00 PM Patient Name: Faisal Lozano Visit Number: [id number] Discharge Date: 10/12/2023 04:30:00 PM ATTENTION: The Clinical Documentation Specialists (CDI) and [facility] Coding Staff appreciate your assistance in clarifying documentation. Please respond to the clarification below the line at the bottom and electronically sign. The CDI & [facility] Coding staff will review the response and follow-up if needed. Please note: Queries are made part of the Legal Health Record. If you have any questions, please contact the author of this message via ITS. Dr. Willson E Sheet Your patient has the documented diagnosis of unspecified CHF per ED Note and Progress Notes. Additional information regarding the type of CHF is requested. History/Risk Factors: 72yo M, sepsis, COVID w colitis, HTN, DMII with complications, ESRD, met encep, CAD w CABG, HLD, Hx CVA Clinical Indicators: VS/Pulse OX: 97-98 BNP: 3430 Chest x ray: Heart/mediastinum: Stable, heart size is within normal limits. Treatment: Patient was found stable and can be discharged home in guarded prognosis however, he needsfollow-upas an outpatient. Patient was instructed tofollow upwith PCP Dr. Pruitt within one week and patient agrees In your professional opinion, can you please clarify the type of CHF if known? [ ] Chronic Systolic Heart Failure (reduced EF) [ ] Chronic Diastolic Heart Failure (preserved EF) [ ] Chronic Systolic & Diastolic Heart Failure [ ] Other, please specify [ ] Unable to determine (Template Last Revised: December 2020) Chronic Diastolic Heart Failure (preserved EF), echo from 2021 ef 50% MTDD
== END 2023-10-12 16:30 | DRG 871 ==
LOC: EC 11:57 → 4SSUR 17:32
PROVIDERS: ADMIT Internal Medicine; ATTEND Internal Medicine
PROC: 0DBN8ZX Excision of Sigmoid Colon, Via Natural or Artificial Opening Endoscopic, Diagnostic (ICD-10-PCS; 2023-10-11)
PROC: 0DBP8ZX Excision of Rectum, Via Natural or Artificial Opening Endoscopic, Diagnostic (ICD-10-PCS; 2023-10-11)
PROC: 0DBL8ZX Excision of Transverse Colon, Via Natural or Artificial Opening Endoscopic, Diagnostic (ICD-10-PCS; principal; 2023-10-11 10:45)
DX: A41.89 Other specified sepsis (principal); G93.41 Metabolic encephalopathy; U07.1 COVID-19; N18.6 End stage renal disease; A08.39 Other viral enteritis; K56.7 Ileus, unspecified; K51.90 Ulcerative colitis, unspecified, without complications; I13.2 Hypertensive heart and chronic kidney disease with heart failure and with stage 5 chronic kidney disease, or end stage renal disease; I50.32 Chronic diastolic (congestive) heart failure; E11.22 Type 2 diabetes mellitus with diabetic chronic kidney disease; K76.0 Fatty (change of) liver, not elsewhere classified; E11.43 Type 2 diabetes mellitus with diabetic autonomic (poly)neuropathy; D72.810 Lymphocytopenia; E11.65 Type 2 diabetes mellitus with hyperglycemia; E03.9 Hypothyroidism, unspecified; F31.9 Bipolar disorder, unspecified; E11.39 Type 2 diabetes mellitus with other diabetic ophthalmic complication; Z99.2 Dependence on renal dialysis; Z79.4 Long term (current) use of insulin; I25.10 Atherosclerotic heart disease of native coronary artery without angina pectoris; E78.5 Hyperlipidemia, unspecified; F43.10 Post-traumatic stress disorder, unspecified; K31.84 Gastroparesis; N40.0 Benign prostatic hyperplasia without lower urinary tract symptoms; G47.33 Obstructive sleep apnea (adult) (pediatric); R15.9 Full incontinence of feces; H42 Glaucoma in diseases classified elsewhere; R27.0 Ataxia, unspecified; M19.90 Unspecified osteoarthritis, unspecified site; I25.2 Old myocardial infarction; Z86.73 Personal history of transient ischemic attack (TIA), and cerebral infarction without residual deficits; Z95.1 Presence of aortocoronary bypass graft; Z28.310 Unvaccinated for COVID-19; Z79.899 Other long term (current) drug therapy; Z79.890 Hormone replacement therapy; Z79.84 Long term (current) use of oral hypoglycemic drugs
CPT/HCPCS: 36415; 45380; 70450; 71046; 74018; 74177; 80048; 80053; 81001; 82009; 82140; 82550; 83036; 83605; 83615; 83690; 83735; 83880; 84145; 84439; 84443; 84484; 85025; 85610; 85730; 86140; 87040; 87045; 87046; 87324; 87636; 88305; 93005; 94760; 96361; 96374; 96375; 99285

== ENCOUNTER 2023-10-19 11:06 | Inpatient (IN) | payer MEDICARE, OTHER ==
[2023-10-19 11:24] LABS: Glucose,Whole Blood 70 mg/dL (70-110)
--- NOTE | 2023-10-19 11:44 | ED ---
General Adult HPI - General Chief complaint: Recheck/Abnormal Lab/Rx Stated complaint: Weakness Time Seen by Provider: 10/19/23 11:17 Source: EMS Mode of arrival: EMS Limitations: no limitations - History of Present Illness Initial comments: Dictation was produced using [employer] dictation software. please excuse any grammatical, word or spelling errors. Chief Complaint: 72-year-old male presents to the ER for hyperglycemia History of Present Illness: [id number] incarcerated male with significant comorbidities presents to the ER for altered mental status and hypoglycemia. He was seen a little altered at the skilled nursing when staff was called. They checked his sugar is found to be low in the 40s. He is given some dextrose which slightly improved however began to diminish again. Patient states that he is here for perineal pain. Patient was diagnosed COVID-19 last week. Patient has any nausea vomiting. No fever constitutional symptoms. Does complain of generalized weakness. The ROS documented in this emergency department record has been reviewed and confirmed by me. Those systems with pertinent positive or negative responses have been documented in the HPI. All other systems are other negative and/or noncontributory. - Related Data Home Medications Medication Instructions Recorded Confirmed metFORMIN HCL 500 mg PO TID 02/06/19 10/19/23 Atorvastatin [Lipitor] 40 mg PO HS 10/09/19 10/19/23 Metoprolol Tartrate [Lopressor] 12.5 mg PO BID 09/16/23 10/19/23 Insulin Regular, Human [Novolin R] See Protocol SQ ACHS 10/07/23 10/19/23 Pantoprazole [Protonix] 40 mg PO DAILY 10/07/23 10/19/23 Clopidogrel [Plavix] 75 mg PO DAILY 10/19/23 10/19/23 Levothyroxine Sodium [Synthroid] 112 mcg PO DAILY 10/19/23 10/19/23 Loperamide HCl [Loperamide] 2 - 4 mg PO TID PRN 10/19/23 10/19/23 Memantine HCl [Namenda] 5 mg PO BID 10/19/23 10/19/23 Previous Rx's Medication Instructions Recorded amLODIPine [Norvasc] 10 mg PO DAILY #30 tab 11/09/22 cefUROXime axetiL [Ceftin] 500 mg PO BID 10 Days #20 tab 10/12/23 metroNIDAZOLE [Flagyl] 500 mg PO TID #30 tab 10/12/23 Allergies Allergy/AdvReac Type Severity Reaction Status Date / Time No Known Allergies Allergy Verified 10/19/23 12:42 Review of Systems ROS Statement: Those systems with pertinent positive or pertinent negative responses have been documented in the HPI. ROS Other: All systems not noted in ROS Statement are negative. Past Medical History Past Medical History: Coronary Artery Disease (CAD), Heart Failure, Diabetes Mellitus, Hyperlipidemia, Hypertension, Myocardial Infarction (GA), Syncope, Thyroid Disorder Additional Past Medical History / Comment(s): CT of the brain in September 2017 demonstrated old right lacunar infarct Last Myocardial Infarction Date:: 12/06/2018 History of Any Multi-Drug Resistant Organisms: None Reported Past Surgical History: Coronary Bypass/CABG, Orthopedic Surgery Additional Past Surgical History / Comment(s): right hip Past Anesthesia/Blood Transfusion Reactions: No Reported Reaction Past Psychological History: Bipolar, PTSD Smoking Status: Never smoker Past Alcohol Use History: None Reported Past Drug Use History: None Reported - Past Family History Father Family Medical History: No Reported History Mother History Unknown: Yes Family Medical History: No Reported History General Exam - General Exam Comments Initial Comments: PHYSICAL EXAM: General Impression: Alert and oriented x3, pale, lethargic HEENT: Normocephalic atraumatic, extra-ocular movements intact, pupils equal and reactive to light bilaterally, Membranes Cardiovascular: Heart regular rate and rhythm Chest: Able to complete full sentences, no retractions, no tachypnea Abdomen: abdomen soft, non-tender, non-distended, no organomegaly Musculoskeletal: Pulses present and equal in all extremities, no peripheral edema Motor: no focal deficits noted Neurological: CN II-XII grossly intact, no focal motor or sensory deficits noted Skin: Significant skin breakdown to the perineum without any induration Psych: Normal affect and mood Limitations: no limitations Course Vital Signs 10/19/23 10/19/23 10/19/23 11:09 11:47 12:59 Temperature 96.8 F L Pulse Rate 125 H 82 82 Respiratory 26 H 28 H 32 H Rate Blood Pressure 115/57 91/52 135/68 O2 Sat by Pulse 100 100 100 Oximetry - Reevaluation(s) Reevaluation #1: 10/19/23 13:22 Case is discussed with hospitalist along with infectious disease Dr. Wilburn did evaluate the patient states that their primary concern is that patient's having ischemic limb bilaterally. Patient is diminished. There does appear to be skin changes to all extremities though he does have noticeable mottling from his mid thigh down both legs. With absent pulses in his distal leg. When questioned further patient states that he can't move his legs and states that he was able to ambulate yesterday. Nephrology was contacted regarding patient's kidney function. Vascular surgery was contacted regarding his ischemic limb. Tetanus was contacted regarding icu admission. Procedures - Sepsis Sepsis Focused Exam #1 Time Sepsis Criteria Met: 12:49 Sepsis Focused Exam Date: 10/19/23 Sepsis Focused Exam Time: :51 Sepsis Focused Exam Complete: Yes Vital Signs & RN Notes Reviewed: Yes Capillary Refill: < 2 Seconds: Fingers, Toes Peripheral Pulses: Weak: Radial (R), Radial (L), Posterior Tibialis (R), Posterior Tibialis (L), Dorsalis Pedis (R), Dorsalis Pedis (L) Skin Color: Ashen Respiratory Exam: normal lung sounds, respiratory distress Cardiovascular Exam: regular rate Medical Decision Making - Medical Decision Making My EKG interpretation: Ventricular rate 82, sinus rhythm,. Interval to 34, QRS 71, QTC 42 significant artifact No MS prolongation, no QTC prolongation, no ST or T-wave changes noted. Overall, this EKG is unremarkable Was pt. sent in by a medical professional or institution (, [facility], PLANNING [employer]AD, urgent care, hospital, or fdc...) When possible be specific @ -[facility] system Did you speak to anyone other than the patient for history (EMS, parent, family, police, friend...)? What history was obtained from this source @ -AT the bedside did not have much to contribute regarding his history of present illness. Did you review nursing and triage notes (agree or disagree)? Why? @ -I reviewed and agree with nursing and triage notes Were old charts reviewed (outside hosp., previous admission, EMS record, old EKG, old radiological studies, urgent care reports/EKG's, fdc records)? Report findings @ -No old charts were reviewed Differential Diagnosis (chest pain, altered mental status, abdominal pain women, abdominal pain men, vaginal bleeding, musculoskeletal, weakness, fever, dyspnea, syncope, headache, dizziness, GI bleed, back pain, seizure, CVA, palpatations, mental health)? @ -Differential Weakness: Hypoglycemia, shock, sepsis, hyponatremia, anemia, infection, GA, ETOH, adverse medicine reaction, overdose, stroke, this is not meant to be an all-inclusive list. EKG interpreted by me (3pts min.). @ -See above X-rays interpreted by me (1pt min.). @ -None done CT interpreted by me (1pt min.). @ -None done U/S interpreted by me (1pt. min.). @ -None done What testing was considered but not performed or refused? (CT, X-rays, U/S, labs)? Why? @ -None What meds were considered but not given or refused? Why? @ -None Did you discuss the management of the patient with other professionals (professionals i.e. , PA, PLANNING LEAD, lab, RT, psych nurse, healthcare social worker, pool servicer, teacher, community liaison officer, case making machine operator)? Give summary @ -As benja Was smoking cessation discussed for >3mins.? @ -No Was critical care preformed (if so, how long)? @ -yes, 33 minutes Were there social determinants of health that impacted care today? How? (Homelessness, low income, unemployed, alcoholism, drug addiction, transportation, low edu. Level, literacy, decrease access to med. care, skilled nursing, rehab)? @ -No Was there de-escalation of care discussed even if they declined (Discuss DNR or withdrawal of care, Hospice)? DNR status @ -No What co-morbidities impacted this encounter? (DM, HTN, Smoking, COPD, CAD, Cancer, CVA, ARF, Chemo, Hep., AIDS, mental health diagnosis, sleep apnea, morbid obesity)? @ -None Was patient admitted / discharged? Hospital course, mention meds given and route, prescriptions, significant lab abnormalities, going to OR and other pertinent info. @ -72-year-old male from the local senior care presents to the ER for hypoglycemia. Vital signs upon arrival shows tachycardia 125. Patient tachypneic. Rest of his vital signs relatively normal. Initial issue was for hypoglycemia however after patient was evaluated with infectious disease along with hospitalist there is concern for acute bilateral lower extremity ischemia. Passive surgery evaluated the patient and will be taking patient to the OR for procedure. Patient was questioned further states that he has pain in his bilateral lower legs. He does have mottling of the mid thigh down to the toes bilaterally. Laboratory evaluation obtained. Leukocytosis of 18.0, white count negative. Hypernatremia 147, bicarb of 7 with anion gap of 30, creatinine of 7.47 with no history of kidney issues. Lactic acid is still 0.5. Troponin of 0.055. Urinalysis suggestive of rhabdomyolysis patient still positive for COVID-19. Chest x-ray nonacute. Undiagnosed new problem with uncertain prognosis? @ -No Drug Therapy requiring intensive monitoring for toxicity (Heparin, Nitro, Insulin, Cardizem)? @ -No Were any procedures done? @ -No Diagnosis/symptom? Acute, or Chronic, or Acute on Chronic? Uncomplicated (without systemic symptoms) or Complicated (systemic symptoms)? @ -Ischemic limb. Side effects of treatment? @ -No Exacerbation, Progression, or Severe Exacerbation? @ -No Poses a threat to life or bodily function? How? (Chest pain, USA, GA, pneumonia, PE, COPD, DKA, ARF, appy, cholecystitis, CVA, Diverticulitis, Homicidal, Suicidal, threat to staff... and all critical care pts) @ -yes - Lab Data Result diagrams: 10/19/23 11:41 10/19/23 11:41 Lab Results 10/19/23 10/19/23 10/19/23 Range/Units 11:13 11:41 11:41 WBC 18.0 H (3.8-10.6) k/uL RBC 3.98 L (4.30-5.90) m/uL Hgb 11.2 L (13.0-17.5) gm/dL Hct 35.7 L (39.0-53.0) % MCV 89.8 D (80.0-100.0) fL MCH 28.2 (25.0-35.0) pg MCHC 31.4 (31.0-37.0) g/dL RDW 15.3 (11.5-15.5) % Plt Count 357 (150-450) k/uL MPV 8.1 Neutrophils % 91 % Lymphocytes % 5 % Monocytes % 3 % Eosinophils % 0 % Basophils % 0 % Neutrophils # 16.3 H (1.3-7.7) k/uL Lymphocytes # 0.8 L (1.0-4.8) k/uL Monocytes # 0.6 (0-1.0) k/uL Eosinophils # 0.0 (0-0.7) k/uL Basophils # 0.0 (0-0.2) k/uL Hypochromasia Moderate PT (10.0-12.5) sec INR (<1.2) APTT (22.0-30.0) sec Sodium (137-145) mmol/L Potassium (3.5-5.1) mmol/L Chloride (98-107) mmol/L Carbon Dioxide (22-30) mmol/L Anion Gap mmol/L BUN (9-20) mg/dL Creatinine (0.66-1.25) mg/dL Est GFR (CKD-EPI)AfAm (>60 ml/min/1.73 sqM) Est GFR (CKD-EPI)NonAf (>60 ml/min/1.73 sqM) Glucose (74-99) mg/dL POC Glucose (mg/dL) 70 (70-110) mg/dL POC Glu Exhaust And Muffler Fitter ID Darientres Anjana Plasma Lactic Acid Lior (0.7-2.0) mmol/L Calcium (8.4-10.2) mg/dL Total Bilirubin (0.2-1.3) mg/dL AST (17-59) U/L ALT (4-49) U/L Alkaline Phosphatase (38-126) U/L Troponin I (0.000-0.034) ng/mL Total Protein (6.3-8.2) g/dL Albumin (3.5-5.0) g/dL Lipase (23-300) U/L Urine Color Urine Appearance (Clear) Urine pH (5.0-8.0) Ur Specific Dunbar (1.001-1.035) Urine Protein (Negative) Urine Glucose (UA) (Negative) Urine Ketones (Negative) Urine Blood (Negative) Urine Nitrite (Negative) Urine Bilirubin (Negative) Urine Urobilinogen (<2.0) mg/dL Ur Leukocyte Esterase (Negative) Urine RBC (0-5) /hpf Urine WBC (0-5) /hpf Urine WBC Clumps (None) /hpf Ur Squamous Epith Cells (0-4) /hpf Urine Bacteria (None) /hpf Cellular Casts (0) /lpf Hyaline Casts (0-2) /lpf Granular Casts (0) /lpf WBC Casts (0) /lpf Urine Mucus (None) /hpf Influenza Type A (PCR) Not Detected (Not Detectd) Influenza Type B (PCR) Not Detected (Not Detectd) RSV (PCR) Not Detected (Not Detectd) SARS-CoV-2 (PCR) Detected A (Not Detectd) 10/19/23 10/19/23 10/19/23 Range/Units 11:41 11:41 11:41 WBC (3.8-10.6) k/uL RBC (4.30-5.90) m/uL Hgb (13.0-17.5) gm/dL Hct (39.0-53.0) % MCV (80.0-100.0) fL MCH (25.0-35.0) pg MCHC (31.0-37.0) g/dL RDW (11.5-15.5) % Plt Count (150-450) k/uL MPV Neutrophils % % Lymphocytes % % Monocytes % % Eosinophils % % Basophils % % Neutrophils # (1.3-7.7) k/uL Lymphocytes # (1.0-4.8) k/uL Monocytes # (0-1.0) k/uL Eosinophils # (0-0.7) k/uL Basophils # (0-0.2) k/uL Hypochromasia PT (10.0-12.5) sec INR (<1.2) APTT (22.0-30.0) sec Sodium 147 H (137-145) mmol/L Potassium 5.4 H (3.5-5.1) mmol/L Chloride 110 H (98-107) mmol/L Carbon Dioxide 7 L* (22-30) mmol/L Anion Gap 30 mmol/L BUN 53 H (9-20) mg/dL Creatinine 7.47 H* (0.66-1.25) mg/dL Est GFR (CKD-EPI)AfAm 8 (>60 ml/min/1.73 sqM) Est GFR (CKD-EPI)NonAf 7 (>60 ml/min/1.73 sqM) Glucose 96 (74-99) mg/dL POC Glucose (mg/dL) (70-110) mg/dL POC Glu Exhaust And Muffler Fitter ID Plasma Lactic Acid Lior 10.5 H* (0.7-2.0) mmol/L Calcium 7.9 L (8.4-10.2) mg/dL Total Bilirubin 0.5 (0.2-1.3) mg/dL AST 243 H (17-59) U/L ALT 78 H (4-49) U/L Alkaline Phosphatase 79 (38-126) U/L Troponin I (0.000-0.034) ng/mL Total Protein 6.6 (6.3-8.2) g/dL Albumin 3.2 L (3.5-5.0) g/dL Lipase 31 (23-300) U/L Urine Color Dark Brown Urine Appearance Cloudy (Clear) Urine pH 5.5 (5.0-8.0) Ur Specific Dunbar 1.029 (1.001-1.035) Urine Protein 2+ H (Negative) Urine Glucose (UA) Negative (Negative) Urine Ketones Trace H (Negative) Urine Blood Moderate H (Negative) Urine Nitrite Negative (Negative) Urine Bilirubin Negative (Negative) Urine Urobilinogen <2.0 (<2.0) mg/dL Ur Leukocyte Esterase Negative (Negative) Urine RBC 2 (0-5) /hpf Urine WBC 12 H (0-5) /hpf Urine WBC Clumps Few H (None) /hpf Ur Squamous Epith Cells 2 (0-4) /hpf Urine Bacteria Rare H (None) /hpf Cellular Casts 2 (0) /lpf Hyaline Casts 80 H (0-2) /lpf Granular Casts 18 (0) /lpf WBC Casts 2 (0) /lpf Urine Mucus Many H (None) /hpf Influenza Type A (PCR) (Not Detectd) Influenza Type B (PCR) (Not Detectd) RSV (PCR) (Not Detectd) SARS-CoV-2 (PCR) (Not Detectd) 10/19/23 10/19/23 Range/Units 11:41 12:22 WBC (3.8-10.6) k/uL RBC (4.30-5.90) m/uL Hgb (13.0-17.5) gm/dL Hct (39.0-53.0) % MCV (80.0-100.0) fL MCH (25.0-35.0) pg MCHC (31.0-37.0) g/dL RDW (11.5-15.5) % Plt Count (150-450) k/uL MPV Neutrophils % % Lymphocytes % % Monocytes % % Eosinophils % % Basophils % % Neutrophils # (1.3-7.7) k/uL Lymphocytes # (1.0-4.8) k/uL Monocytes # (0-1.0) k/uL Eosinophils # (0-0.7) k/uL Basophils # (0-0.2) k/uL Hypochromasia PT 12.4 (10.0-12.5) sec INR 1.2 H (<1.2) APTT 21.1 L (22.0-30.0) sec Sodium (137-145) mmol/L Potassium (3.5-5.1) mmol/L Chloride (98-107) mmol/L Carbon Dioxide (22-30) mmol/L Anion Gap mmol/L BUN (9-20) mg/dL Creatinine (0.66-1.25) mg/dL Est GFR (CKD-EPI)AfAm (>60 ml/min/1.73 sqM) Est GFR (CKD-EPI)NonAf (>60 ml/min/1.73 sqM) Glucose (74-99) mg/dL POC Glucose (mg/dL) (70-110) mg/dL POC Glu Exhaust And Muffler Fitter ID Plasma Lactic Acid Lior (0.7-2.0) mmol/L Calcium (8.4-10.2) mg/dL Total Bilirubin (0.2-1.3) mg/dL AST (17-59) U/L ALT (4-49) U/L Alkaline Phosphatase (38-126) U/L Troponin I 0.055 H* (0.000-0.034) ng/mL Total Protein (6.3-8.2) g/dL Albumin (3.5-5.0) g/dL Lipase (23-300) U/L Urine Color Urine Appearance (Clear) Urine pH (5.0-8.0) Ur Specific Dunbar (1.001-1.035) Urine Protein (Negative) Urine Glucose (UA) (Negative) Urine Ketones (Negative) Urine Blood (Negative) Urine Nitrite (Negative) Urine Bilirubin (Negative) Urine Urobilinogen (<2.0) mg/dL Ur Leukocyte Esterase (Negative) Urine RBC (0-5) /hpf Urine WBC (0-5) /hpf Urine WBC Clumps (None) /hpf Ur Squamous Epith Cells (0-4) /hpf Urine Bacteria (None) /hpf Cellular Casts (0) /lpf Hyaline Casts (0-2) /lpf Granular Casts (0) /lpf WBC Casts (0) /lpf Urine Mucus (None) /hpf Influenza Type A (PCR) (Not Detectd) Influenza Type B (PCR) (Not Detectd) RSV (PCR) (Not Detectd) SARS-CoV-2 (PCR) (Not Detectd) Disposition Clinical Impression: SIRS (systemic inflammatory response syndrome), Ischemic leg Disposition: ADMITTED IP TO THIS [facility] Condition: Critical Referrals: Sol Cerda MD [Primary Care Provider] - 1-2 days Decision Time: 13:34
[2023-10-19 11:49] LABS: Basophils % (A) 0 %; Eosinophils % (A) 0 %; HCT 35.7 % (39.0-53.0); HGB 11.2 gm/dL (13.0-17.5); Hypochromasia Moderate; Lymphocytes # (A) 0.8 k/uL (1.0-4.8); Lymphocytes % (A) 5 %; MCH 28.2 pg (25.0-35.0); MCHC 31.4 g/dL (31.0-37.0); Mean Platelet Volume 8.1; Monocytes # (A) 0.6 k/uL (0-1.0); Monocytes % (A) 3 %; Neutrophils # (A) 16.3 k/uL (1.3-7.7); Neutrophils % (A) 91 %; Platelet Count 357 k/uL (150-450); RBC 3.98 m/uL (4.30-5.90); RDW 15.3 % (11.5-15.5)
--- NOTE | 2023-10-19 11:53 | XR ---
EXAMINATION TYPE: XR chest 1V portable DATE OF EXAM: 10/19/2023 11:49 AM CLINICAL INDICATION:Male, 72 years old with history of hypoglycemia; COMPARISON: Chest radiographs from 10/07/2023 TECHNIQUE: XR chest 1V portable Frontal view of the chest. FINDINGS: Lungs/Pleura: There is no evidence of pleural effusion, focal consolidation, or pneumothorax. Pulmonary vascularity: Unremarkable. Heart/mediastinum: Cardiomediastinal silhouette is unremarkable. Musculoskeletal: No acute osseous pathology. There is fixation hardware in the lower cervical spine. IMPRESSION: 1. Lung volumes, No acute cardiopulmonary disease process. 2. COPD changes.
[2023-10-19 12:01] LABS: ALT 78 U/L (4-49); AST 243 U/L (17-59); African American GFR (CKD) 8 (>60 ml/min/1.73 sqM); Albumin 3.2 g/dL (3.5-5.0); Alkaline Phosphatase 79 U/L (38-126); Anion Gap 30 mmol/L; Blood Urea Nitrogen 53 mg/dL (9-20); Calcium 7.9 mg/dL (8.4-10.2); Chloride 110 mmol/L (98-107); Glucose 96 mg/dL (74-99); Lipase 31 U/L (23-300); Non-African American GFR(CKD) 7 (>60 ml/min/1.73 sqM); Potassium 5.4 mmol/L (3.5-5.1); Sodium 147 mmol/L (137-145); Total Bilirubin 0.5 mg/dL (0.2-1.3); Total Protein 6.6 g/dL (6.3-8.2)
[2023-10-19] MEDS: DEXTROSE 10% IN WATER 1,000 ML with SODIUM CHLORIDE 4MEQ/ML VIAL 153.8 MEQ IV SCH ×2 (12:04→23:40)
[2023-10-19] MEDS ORDERED: SODIUM CHLORIDE 0.9% 1,000 ML IV STA (12:12)
[2023-10-19 12:16] LABS: Carbon Dioxide 7 mmol/L (22-30)
[2023-10-19] MEDS ORDERED: CEFEPIME 2 GM in SODIUM CHLORIDE 0.9% 100 ML IVPB STA (12:22)
[2023-10-19] MEDS ORDERED: VANCOMYCIN IV PER PHARMACY 1 EACH MISC MISCELLANE PRN (12:22)
[2023-10-19] MEDS ORDERED: SODIUM CHLORIDE 0.9% 2,450 ML IV STA (12:23)
[2023-10-19 12:25] LABS: Appearance,Urine Cloudy (Clear); Bacteria,Urine Rare /hpf; Bilirubin,Urine Negative (Negative); Blood,Urine Moderate (Negative); Cellular Casts,Urine 2 /lpf (0); Color,Urine Dark Brown; Glucose,Urine (UA) Negative (Negative); Granular Casts,Urine 18 /lpf (0); Hyaline Casts,Urine 80 /lpf (0-2); Ketones,Urine Trace (Negative); Leukocyte Esterase,Urine Negative (Negative); Mucus,Urine Many /hpf; Nitrite,Urine Negative (Negative); PH, Urine 5.5 (5.0-8.0); Protein,Urine 2+ (Negative); RBC,Urine 2 /hpf (0-5); Specific Gravity,Urine 1.029 (1.001-1.035); Squamous Epithelial Cell,Urine 2 /hpf (0-4); Urobilinogen,Urine <2.0 mg/dL (<2.0); WBC,Urine 12 /hpf (0-5); White Blood Cell Casts,Urine 2 /lpf (0)
[2023-10-19] MEDS ORDERED: VANCOMYCIN 1,500 MG in SODIUM CHLORIDE 0.9% 500 ML 500 ML IVPB STA (12:25)
[2023-10-19 12:27] LABS: MCV 89.8 fL (80.0-100.0)
[2023-10-19 12:47] LABS: INR 1.2 (<1.2); Partial Thromboplastin Time 21.1 sec (22.0-30.0); Prothrombin Time 12.4 sec (10.0-12.5)
[2023-10-19] MEDS ORDERED: NALOXONE 0.4 MG/ML 1 ML VIAL IV PRN ×2 (12:47→15:01)
[2023-10-19] MEDS ORDERED: HEPARIN SODIUM 1,000 UN/ML (10ML VL) IV ONE (13:15)
[2023-10-19] MEDS ORDERED: HEPARIN SODIUM 1,000 UN/ML (10ML VL) IV PRN (13:15)
[2023-10-19 13:43] LABS: Glucose,Whole Blood 119 mg/dL (70-110)
[2023-10-19] MEDS: HEPARIN SOD,PORK IN 0.45% NACL 25,000 UNIT in 0.45% NACL 1 250ML.BAG IV SCH (14:05)
--- NOTE | 2023-10-19 14:11 | P.GSCN ---
History of Present Illness Consult date: 10/19/23 Reason for Consult: mottled legs History of present illness: 72 year old gentleman who is an inmate at a local senior care presented to the ER at 11am after being found down and unable to walk. He was evaluated in the ER with blood work and on physical exam was noted to have mottled legs bilaterally and unable to move. He states the last time he walked was before going to bed. When he woke up he was unable to get up and move. He currently he has numbness in his legs. He states he was recently diagnosed with COVID on the or of this month and was seen in the hospital at that time. He denies any fevers, chills, chest pain or shortness of breath. Review of Systems All systems: negative (what is mentioned in the PMH or HPI) Past Medical History Past Medical History: Coronary Artery Disease (CAD), Heart Failure, Diabetes Mellitus, Hyperlipidemia, Hypertension, Myocardial Infarction (CA), Syncope, Thyroid Disorder Additional Past Medical History / Comment(s): CT of the brain in September 2017 demonstrated old right lacunar infarct Last Myocardial Infarction Date:: 12/06/2018 History of Any Multi-Drug Resistant Organisms: None Reported Past Surgical History: Coronary Bypass/CABG, Orthopedic Surgery Additional Past Surgical History / Comment(s): right hip Past Anesthesia/Blood Transfusion Reactions: No Reported Reaction Past Psychological History: Bipolar, PTSD Smoking Status: Never smoker Past Alcohol Use History: None Reported Past Drug Use History: None Reported - Past Family History Father Family Medical History: No Reported History Mother History Unknown: Yes Family Medical History: No Reported History Medications and Allergies Home Medications Medication Instructions Recorded Confirmed Type metFORMIN HCL 500 mg PO TID 02/06/19 10/19/23 History Atorvastatin [Lipitor] 40 mg PO HS 10/09/19 10/19/23 History amLODIPine [Norvasc] 10 mg PO DAILY #30 tab 11/09/22 10/19/23 Rx Metoprolol Tartrate [Lopressor] 12.5 mg PO BID 09/16/23 10/19/23 History Insulin Regular, Human [Novolin R] See Protocol SQ ACHS 10/07/23 10/19/23 History Pantoprazole [Protonix] 40 mg PO DAILY 10/07/23 10/19/23 History cefUROXime axetiL [Ceftin] 500 mg PO BID 10 Days #20 tab 10/12/23 10/19/23 Rx metroNIDAZOLE [Flagyl] 500 mg PO TID #30 tab 10/12/23 10/19/23 Rx Clopidogrel [Plavix] 75 mg PO DAILY 10/19/23 10/19/23 History Levothyroxine Sodium [Synthroid] 112 mcg PO DAILY 10/19/23 10/19/23 History Loperamide HCl [Loperamide] 2 - 4 mg PO TID PRN 10/19/23 10/19/23 History Memantine HCl [Namenda] 5 mg PO BID 10/19/23 10/19/23 History Allergies Allergy/AdvReac Type Severity Reaction Status Date / Time No Known Allergies Allergy Verified 10/19/23 12:42 Surgical - Exam Vital Signs Temp Pulse Resp BP Pulse Ox 96.8 F L 125 H 26 H 115/57 100 10/19/23 11:09 10/19/23 11:09 10/19/23 11:09 10/19/23 11:09 10/19/23 11:09 Patient Seen Date: 10/19/23 Patient Seen Time: 13:20 - General well developed, well nourished, moderate distress - Eyes PERRL, normal ocular movement - ENT normal pinna, normal nares - Neck no masses, no bruits - Respiratory normal expansion, normal respiratory effort - Cardiovascular Rhythm: regularly irregular - Abdomen Abdomen: soft, non tender - Integumentary mottling noted from the thigh bilaterally to the foot. - Neurologic no sensation from the thigh down bilaterally no motor from the thigh down no normal coordination, no normal sensation - Psychiatric oriented to time, oriented to person, oriented to place, speech is normal palpable femoral pulses bilaterally non palpable popliteal, dp or pt pulses no capillary refill bilaterally to the foot Feet are mottled, white up to the thigh bilaterally. Mid thigh with some capillary refill and warmth. Unable to move at the knee, ankle or toes. Results - Labs 10/19/23 11:41 10/19/23 11:41 Abnormal Lab Results - Last 24 Hours (Table) 10/19/23 10/19/23 10/19/23 Range/Units 11:41 11:41 11:41 WBC 18.0 H (3.8-10.6) k/uL RBC 3.98 L (4.30-5.90) m/uL Hgb 11.2 L (13.0-17.5) gm/dL Hct 35.7 L (39.0-53.0) % Neutrophils # 16.3 H (1.3-7.7) k/uL Lymphocytes # 0.8 L (1.0-4.8) k/uL INR (<1.2) APTT (22.0-30.0) sec Sodium (137-145) mmol/L Potassium (3.5-5.1) mmol/L Chloride (98-107) mmol/L Carbon Dioxide (22-30) mmol/L BUN (9-20) mg/dL Creatinine (0.66-1.25) mg/dL Plasma Lactic Acid Lior (0.7-2.0) mmol/L Calcium (8.4-10.2) mg/dL AST (17-59) U/L ALT (4-49) U/L Troponin I (0.000-0.034) ng/mL Albumin (3.5-5.0) g/dL Urine Protein 2+ H (Negative) Urine Ketones Trace H (Negative) Urine Blood Moderate H (Negative) Urine WBC 12 H (0-5) /hpf Urine WBC Clumps Few H (None) /hpf Urine Bacteria Rare H (None) /hpf Hyaline Casts 80 H (0-2) /lpf Urine Mucus Many H (None) /hpf SARS-CoV-2 (PCR) Detected A (Not Detectd) 10/19/23 10/19/23 10/19/23 Range/Units 11:41 11:41 11:41 WBC (3.8-10.6) k/uL RBC (4.30-5.90) m/uL Hgb (13.0-17.5) gm/dL Hct (39.0-53.0) % Neutrophils # (1.3-7.7) k/uL Lymphocytes # (1.0-4.8) k/uL INR (<1.2) APTT (22.0-30.0) sec Sodium 147 H (137-145) mmol/L Potassium 5.4 H (3.5-5.1) mmol/L Chloride 110 H (98-107) mmol/L Carbon Dioxide 7 L* (22-30) mmol/L BUN 53 H (9-20) mg/dL Creatinine 7.47 H* (0.66-1.25) mg/dL Plasma Lactic Acid Lior 10.5 H* (0.7-2.0) mmol/L Calcium 7.9 L (8.4-10.2) mg/dL AST 243 H (17-59) U/L ALT 78 H (4-49) U/L Troponin I 0.055 H* (0.000-0.034) ng/mL Albumin 3.2 L (3.5-5.0) g/dL Urine Protein (Negative) Urine Ketones (Negative) Urine Blood (Negative) Urine WBC (0-5) /hpf Urine WBC Clumps (None) /hpf Urine Bacteria (None) /hpf Hyaline Casts (0-2) /lpf Urine Mucus (None) /hpf SARS-CoV-2 (PCR) (Not Detectd) 10/19/23 Range/Units 12:22 WBC (3.8-10.6) k/uL RBC (4.30-5.90) m/uL Hgb (13.0-17.5) gm/dL Hct (39.0-53.0) % Neutrophils # (1.3-7.7) k/uL Lymphocytes # (1.0-4.8) k/uL INR 1.2 H (<1.2) APTT 21.1 L (22.0-30.0) sec Sodium (137-145) mmol/L Potassium (3.5-5.1) mmol/L Chloride (98-107) mmol/L Carbon Dioxide (22-30) mmol/L BUN (9-20) mg/dL Creatinine (0.66-1.25) mg/dL Plasma Lactic Acid Lior (0.7-2.0) mmol/L Calcium (8.4-10.2) mg/dL AST (17-59) U/L ALT (4-49) U/L Troponin I (0.000-0.034) ng/mL Albumin (3.5-5.0) g/dL Urine Protein (Negative) Urine Ketones (Negative) Urine Blood (Negative) Urine WBC (0-5) /hpf Urine WBC Clumps (None) /hpf Urine Bacteria (None) /hpf Hyaline Casts (0-2) /lpf Urine Mucus (None) /hpf SARS-CoV-2 (PCR) (Not Detectd) Diabetes panel 10/19/23 Range/Units 11:41 Sodium 147 H (137-145) mmol/L Potassium 5.4 H (3.5-5.1) mmol/L Chloride 110 H (98-107) mmol/L Carbon Dioxide 7 L* (22-30) mmol/L BUN 53 H (9-20) mg/dL Creatinine 7.47 H* (0.66-1.25) mg/dL Glucose 96 (74-99) mg/dL Calcium 7.9 L (8.4-10.2) mg/dL AST 243 H (17-59) U/L ALT 78 H (4-49) U/L Alkaline Phosphatase 79 (38-126) U/L Total Protein 6.6 (6.3-8.2) g/dL Albumin 3.2 L (3.5-5.0) g/dL Calcium panel 10/19/23 Range/Units 11:41 Calcium 7.9 L (8.4-10.2) mg/dL Albumin 3.2 L (3.5-5.0) g/dL Pituitary panel 10/19/23 Range/Units 11:41 Sodium 147 H (137-145) mmol/L Potassium 5.4 H (3.5-5.1) mmol/L Chloride 110 H (98-107) mmol/L Carbon Dioxide 7 L* (22-30) mmol/L BUN 53 H (9-20) mg/dL Creatinine 7.47 H* (0.66-1.25) mg/dL Glucose 96 (74-99) mg/dL Calcium 7.9 L (8.4-10.2) mg/dL Adrenal panel 10/19/23 Range/Units 11:41 Sodium 147 H (137-145) mmol/L Potassium 5.4 H (3.5-5.1) mmol/L Chloride 110 H (98-107) mmol/L Carbon Dioxide 7 L* (22-30) mmol/L BUN 53 H (9-20) mg/dL Creatinine 7.47 H* (0.66-1.25) mg/dL Glucose 96 (74-99) mg/dL Calcium 7.9 L (8.4-10.2) mg/dL Total Bilirubin 0.5 (0.2-1.3) mg/dL AST 243 H (17-59) U/L ALT 78 H (4-49) U/L Alkaline Phosphatase 79 (38-126) U/L Total Protein 6.6 (6.3-8.2) g/dL Albumin 3.2 L (3.5-5.0) g/dL Assessment and Plan Assessment: 1. Acute bilateral critical limb ischemia- embolic vs. thrombotic - bilateral popliteal artery occlusions 2. Acute renal failure secondary to above 3. Leukocytosis 4. Lactic acidosis secondary to #1 Plan: Patient to go to the OR for emergent open thrombectomy of bilateral lower extremities secondary to acute bilateral critical limb ischemia. Patient has no motor and is mottled from the thighs down with lactic acidosis a nd therefore needs emergent surgery. Discussed with the patient the severity of the diagnosis and situation as well as the plan for bilateral open thrombectomy, fasciotomies and placement of a temporary catheter for dialysis. He is agreeable and understands the risks, and benefits. Patient with poor prognosis and high risk for limb loss and even if we are successful with revacularizing the limbs. Thank you for the consultation.
[2023-10-19] MEDS ORDERED: SODIUM CHLORIDE 0.9% 1,000 ML IV ONE (14:20)
[2023-10-19 14:52] LABS: Glucose,Whole Blood 79 mg/dL (70-110)
[2023-10-19] MEDS ORDERED: HYDROcodone/APAP 5-325MG 1 EACH TAB PO PRN (15:01)
[2023-10-19] MEDS ORDERED: ACETAMINOPHEN TAB 325 MG TAB PO PRN (15:01)
[2023-10-19] MEDS ORDERED: SODIUM BICARB 8.4% 50 ML SYR (1 MEQ/ML) ONE (15:02)
[2023-10-19] MEDS ORDERED: ALBUMIN HUMAN 5% (25gm) 500 ML VIAL IVPB ONE (15:02)
[2023-10-19] MEDS ORDERED: ROCURONIUM 10 MG/ML (5 ML VIAL) IV ONE (15:02)
[2023-10-19] MEDS ORDERED: HEPARIN SODIUM,PORCINE 5,000 UNIT/ML 1 ML VIAL ONE (15:02)
[2023-10-19] MEDS ORDERED: LIDOCAINE 1% INJ 10MG/ML (20 ML MDV) ONE (15:02)
[2023-10-19] MEDS ORDERED: NOREPINEPHRINE 1 MG/ML 4 ML VIAL IV ONE (15:02)
[2023-10-19] MEDS ORDERED: DEXTROSE 50% SYRINGE 50 ML IVP ONE (15:02)
[2023-10-19] MEDS ORDERED: PHENYLEPHRINE-0.9% NACL SYG 1,000 MCG/10 ML SYRINGE ONE (15:02)
[2023-10-19] MEDS ORDERED: ePHEDrine 50 MG/ML 1 ML VIAL ONE (15:02)
[2023-10-19] MEDS ORDERED: ETOMIDATE 2 MG/ML 10 ML VIAL ONE (15:02)
--- NOTE | 2023-10-19 15:07 | P.HPIM ---
History of Present Illness H&P Date: 10/19/23 History of present illness; patient is 72-year-old gentleman who is currently in assisted has a past medical history of Coronary Artery Disease status post CABG , Heart Failure, Diabetes Mellitus, Hyperlipidemia, Hypertension, Syncope, thyroid disease, CT of the brain in September 2017 demonstrated old right lacunar infarct, Bipolar, PTSD was brought to the ER for generalized weakness. Patient is a poor historian. Most of the history has been taken from electronic medical records and from the patient, patient stated that he was complaining of weakness this morning after waking up from sleep. Patient stated that his legs were heavy on him and was unable to lift them off. Denied any pain in lower extremities. Denied any fever or chills. There was no complain of nausea, vomiting abdominal pain. Intermediate staff checked on the patient and found his blood sugars to be low and he was given some dextrose which improved his blood sugars. Patient was recently in the hospital at which time he was diagnosed with COVID- 19 infection and was also found to have colitis. Patient was brought to the ER Initial lab work done in the ER showed WBC 18, hemoglobin, platelet count 357, sodium 147, potassium 5.4, BUN 53, creatinine 7.47 , lactate 10.5, calcium 7.9, AST 243, ALT 78, [id number], troponin 0.055 Chest x-ray done in the ER showed low lung volumes, no acute cardiac process, COPD change In the ER, patient was found to have cold bilateral lower extremities, there was no pulses in lower extremities and there was mottling of the skin. Stat vascu lar surgery consult was requested and vascular surgery evaluated the patient recommended starting patient on heparin and initiating surgical intervention for acute bilateral lower extremity ischemia. Patient will be admitted to ICU REVIEW OF SYSTEMS: CONSTITUTIONAL: No fever, complaining of fatigue HEENT: No recent visual problems or hearing problems. Denied any sore throat. CARDIOVASCULAR: No chest pain, orthopnea, PND, no palpitations, no syncope. PULMONARY: No shortness of breath, no cough, no hemoptysis. GASTROINTESTINAL: No diarrhea, no nausea, no vomiting, no abdominal pain. NEUROLOGICAL: No headaches, HEMATOLOGICAL: Denies any bleeding . GENITOURINARY: Denies any burning micturition, frequency, or urgency. MUSCULOSKELETAL/RHEUMATOLOGICAL: Weakness of lower extremities ENDOCRINE: Denies any polyuria or polydipsia. The rest of the 14-point review of systems is negative. PHYSICAL EXAMINATION: GENERAL: The patient is alert and oriented x3, chronically ill-looking HEENT: Pupils are round and equally reacting to light. EOMI. No scleral icterus. No conjunctival pallor. Normocephalic, atraumatic. No pharyngeal erythema. No thyromegaly. CARDIOVASCULAR: S1 and S2 present. No murmurs, rubs, or gallops. PULMONARY: Chest is clear to auscultation, no wheezing or crackles. ABDOMEN: Soft, nontender, nondistended, normoactive bowel sounds. No palpable organomegaly. MUSCULOSKELETAL: No joint swelling or deformity. EXTREMITIES: mottling on the skin of lower extremities up to the thigh. No pedal pulses, no popliteal pulse palpable. Feeble femoral pulses palpable NEUROLOGICAL: Gross neurological examination did not reveal any focal deficits. SKIN: mottling on the skin of lower extremities up to the thigh. Assessment and plan Acute limb ischemia Severe Sepsis Lactic acidosis Acute kidney injury Hyperkalemia Hypoglycemia Rhabdomyolysis Elevated troponin COVID-19 infection Diabetes mellitus, with hyperglycemia Hypothyroidism Hypertension Hyperlipidemia History of osteoarthritis Hypothyroidism History of coronary artery disease status post CABG Monitor vital signs Monitor CBC Monitor CMP Continue telemetry monitoring Ordered blood cultures Trend lactic acid levels Trend troponins Avoid nephrotoxic agents Ordered urine electrolytes Ordered ultrasound of kidneys Keep patient nothing by mouth Start patient on pharmacy dose heparin Continue IV cefepime and vancomycin Discussed with vascular surgery at the patient's bedside,Patient will be taken for emergent surgical intervention for bilateral acute limb ischemia Discussed with nephrology, patient will be needing to be started on dialysis post surgical intervention, vascular surgery on board for dialysis catheter placement ID consulted ICU consulted Labs and medication were reviewed.. Continue same treatment. Continue with symptomatic treatment. Resume home medication. Monitor labs and vitals. DVT and GI prophylaxis. Further recommendations as per clinical course of the patient Dictation was produced using [employer] dictation software. please excuse any grammatical, word or spelling errors. Past Medical History Past Medical History: Coronary Artery Disease (CAD), Heart Failure, Diabetes Mellitus, Hyperlipidemia, Hypertension, Myocardial Infarction (MS), Syncope, Thyroid Disorder Additional Past Medical History / Comment(s): CT of the brain in September 2017 demonstrated old right lacunar infarct Last Myocardial Infarction Date:: 12/06/2018 History of Any Multi-Drug Resistant Organisms: None Reported Past Surgical History: Coronary Bypass/CABG, Orthopedic Surgery Additional Past Surgical History / Comment(s): right hip Past Anesthesia/Blood Transfusion Reactions: No Reported Reaction Past Psychological History: Bipolar, PTSD Smoking Status: Never smoker Past Alcohol Use History: None Reported Past Drug Use History: None Reported - Past Family History Father Family Medical History: No Reported History Mother History Unknown: Yes Family Medical History: No Reported History Medications and Allergies Home Medications Medication Instructions Recorded Confirmed Type metFORMIN HCL 500 mg PO TID 02/06/19 10/19/23 History Atorvastatin [Lipitor] 40 mg PO HS 10/09/19 10/19/23 History amLODIPine [Norvasc] 10 mg PO DAILY #30 tab 11/09/22 10/19/23 Rx Metoprolol Tartrate [Lopressor] 12.5 mg PO BID 09/16/23 10/19/23 History Insulin Regular, Human [Novolin R] See Protocol SQ ACHS 10/07/23 10/19/23 History Pantoprazole [Protonix] 40 mg PO DAILY 10/07/23 10/19/23 History cefUROXime axetiL [Ceftin] 500 mg PO BID 10 Days #20 tab 10/12/23 10/19/23 Rx metroNIDAZOLE [Flagyl] 500 mg PO TID #30 tab 10/12/23 10/19/23 Rx Clopidogrel [Plavix] 75 mg PO DAILY 10/19/23 10/19/23 History Levothyroxine Sodium [Synthroid] 112 mcg PO DAILY 10/19/23 10/19/23 History Loperamide HCl [Loperamide] 2 - 4 mg PO TID PRN 10/19/23 10/19/23 History Memantine HCl [Namenda] 5 mg PO BID 10/19/23 10/19/23 History Allergies Allergy/AdvReac Type Severity Reaction Status Date / Time No Known Allergies Allergy Verified 10/19/23 12:42 Physical Exam Vitals: Vital Signs Temp Pulse Resp BP Pulse Ox 10/19/23 14:00 88 26 H 152/71 100 10/19/23 13:00 81 29 H 97/59 100 10/19/23 12:59 82 32 H 135/68 100 10/19/23 12:30 84 23 107/57 80 L 10/19/23 11:47 82 28 H 91/52 100 10/19/23 11:15 11 L 10/19/23 11:09 96.8 F L 125 H 26 H 115/57 100 Intake and Output 10/18/23 10/19/23 10/19/23 22:59 06:59 14:59 Other: Weight 97.522 kg Results CBC & Chem 7: 10/19/23 11:41 10/19/23 11:41 Labs: Abnormal Lab Results - Last 24 Hours (Table) 10/19/23 10/19/23 10/19/23 Range/Units 11:41 11:41 11:41 WBC 18.0 H (3.8-10.6) k/uL RBC 3.98 L (4.30-5.90) m/uL Hgb 11.2 L (13.0-17.5) gm/dL Hct 35.7 L (39.0-53.0) % Neutrophils # 16.3 H (1.3-7.7) k/uL Lymphocytes # 0.8 L (1.0-4.8) k/uL INR (<1.2) APTT (22.0-30.0) sec Sodium (137-145) mmol/L Potassium (3.5-5.1) mmol/L Chloride (98-107) mmol/L Carbon Dioxide (22-30) mmol/L BUN (9-20) mg/dL Creatinine (0.66-1.25) mg/dL POC Glucose (mg/dL) (70-110) mg/dL Plasma Lactic Acid Lior (0.7-2.0) mmol/L Calcium (8.4-10.2) mg/dL AST (17-59) U/L ALT (4-49) U/L Creatine Kinase (55-170) U/L Troponin I (0.000-0.034) ng/mL Albumin (3.5-5.0) g/dL Urine Protein 2+ H (Negative) Urine Ketones Trace H (Negative) Urine Blood Moderate H (Negative) Urine WBC 12 H (0-5) /hpf Urine WBC Clumps Few H (None) /hpf Urine Bacteria Rare H (None) /hpf Hyaline Casts 80 H (0-2) /lpf Urine Mucus Many H (None) /hpf SARS-CoV-2 (PCR) Detected A (Not Detectd) 10/19/23 10/19/23 10/19/23 Range/Units 11:41 11:41 11:41 WBC (3.8-10.6) k/uL RBC (4.30-5.90) m/uL Hgb (13.0-17.5) gm/dL Hct (39.0-53.0) % Neutrophils # (1.3-7.7) k/uL Lymphocytes # (1.0-4.8) k/uL INR (<1.2) APTT (22.0-30.0) sec Sodium 147 H (137-145) mmol/L Potassium 5.4 H (3.5-5.1) mmol/L Chloride 110 H (98-107) mmol/L Carbon Dioxide 7 L* (22-30) mmol/L BUN 53 H (9-20) mg/dL Creatinine 7.47 H* (0.66-1.25) mg/dL POC Glucose (mg/dL) (70-110) mg/dL Plasma Lactic Acid Lior 10.5 H* (0.7-2.0) mmol/L Calcium 7.9 L (8.4-10.2) mg/dL AST 243 H (17-59) U/L ALT 78 H (4-49) U/L Creatine Kinase (55-170) U/L Troponin I 0.055 H* (0.000-0.034) ng/mL Albumin 3.2 L (3.5-5.0) g/dL Urine Protein (Negative) Urine Ketones (Negative) Urine Blood (Negative) Urine WBC (0-5) /hpf Urine WBC Clumps (None) /hpf Urine Bacteria (None) /hpf Hyaline Casts (0-2) /lpf Urine Mucus (None) /hpf SARS-CoV-2 (PCR) (Not Detectd) 10/19/23 10/19/23 10/19/23 Range/Units 12:22 12:22 13:36 WBC (3.8-10.6) k/uL RBC (4.30-5.90) m/uL Hgb (13.0-17.5) gm/dL Hct (39.0-53.0) % Neutrophils # (1.3-7.7) k/uL Lymphocytes # (1.0-4.8) k/uL INR 1.2 H (<1.2) APTT 21.1 L (22.0-30.0) sec Sodium (137-145) mmol/L Potassium (3.5-5.1) mmol/L Chloride (98-107) mmol/L Carbon Dioxide (22-30) mmol/L BUN (9-20) mg/dL Creatinine (0.66-1.25) mg/dL POC Glucose (mg/dL) 119 H (70-110) mg/dL Plasma Lactic Acid Lior (0.7-2.0) mmol/L Calcium (8.4-10.2) mg/dL AST (17-59) U/L ALT (4-49) U/L Creatine Kinase 8909 H* (55-170) U/L Troponin I (0.000-0.034) ng/mL Albumin (3.5-5.0) g/dL Urine Protein (Negative) Urine Ketones (Negative) Urine Blood (Negative) Urine WBC (0-5) /hpf Urine WBC Clumps (None) /hpf Urine Bacteria (None) /hpf Hyaline Casts (0-2) /lpf Urine Mucus (None) /hpf SARS-CoV-2 (PCR) (Not Detectd)
[2023-10-19] MEDS ORDERED: SODIUM CHLORIDE 0.9% 100 ML with ceFAZolin 2,000 MG IV ONE ×2 (15:36)
--- NOTE | 2023-10-19 15:38 | P.ANPRN ---
Procedure Note - Anesthesia - Invasive Line Left Arterial Line Time Out Performed: Yes Date of Procedure: 10/19/23 Time of Procedure: 14:40 Location of Patient: PreOp Preparation: Sterile Prep, Sterile Dressing Arterial Line Location: Radial Ultrasound Used: Yes Purpose - Visualization and Identification of Vasculature: Yes Needle Guage: 20 Image Stored and Saved: Yes Narrative: No palpable pulses. Left radial arterial line placed under u/s guidance using Seldinger technique
--- NOTE | 2023-10-19 15:40 | P.ANPRN ---
Procedure Note - Anesthesia - Invasive Line Left Central Line Time Out Performed: Yes Date of Procedure: 10/19/23 Time of Procedure: 14:50 Location of Patient: PreOp Preparation: Sterile Prep, Sterile Dressing Central Line Location: Internal Jugular Ultrasound Used: Yes Purpose - Visualization and Identification of Vasculature: Yes Needle Guage: 18 Image Stored and Saved: Yes Narrative: On u/s RIJ not visible. LIJ TLC placed under u/s guidance using Seldinger technique.
[2023-10-19] MEDS ORDERED: GELATIN SPONGE,ABSORB (LARGE) 1 EACH SPONGE TOPICAL ONE (15:41)
[2023-10-19] MEDS ORDERED: THROMBIN (BOVINE) 5,000 UNIT VIAL TOPICAL ONE (15:41)
[2023-10-19] MEDS ORDERED: IOPAMIDOL-370 100ML BTL MISCELLANE ONE ×2 (15:41)
[2023-10-19] MEDS ORDERED: ceFAZolin 2 GM in SODIUM CHLORIDE 0.9% 500 ML 500 ML IRRIGATION ONE (15:41)
[2023-10-19] MEDS ORDERED: HEPARIN SODIUM (1,000 UNIT/ML) 2,000 UNIT in SODIUM CHLORIDE 0.9% 1,000 ML IRRIGATION ONE (15:41)
[2023-10-19 15:54] LABS: Allen Test Performed? Yes
[2023-10-19 15:56] LABS: ABG HCO3 13 mmol/L (21-25); ABG Oxygen Saturation 99.7 % (94-97); ABG PCO2 36 mmHg (35-45); ABG PO2 396 mmHg (83-108)
[2023-10-19 15:58] LABS: ABG PH 7.18 (7.35-7.45)
[2023-10-19 17:18] LABS: Glucose,Whole Blood 44 mg/dL (70-110)
[2023-10-19 17:50] LABS: Glucose,Whole Blood 149 mg/dL (70-110)
[2023-10-19 17:56] LABS: ABG Base Excess -14.1 mmol/L; ABG HCO3 12 mmol/L (21-25); ABG Oxygen Saturation 99.7 % (94-97); ABG PCO2 26 mmHg (35-45); ABG PH 7.26 (7.35-7.45); ABG PO2 365 mmHg (83-108)
[2023-10-19 17:58] LABS: Allen Test Performed? Yes
[2023-10-19 18:32] LABS: Glucose,Whole Blood 111 mg/dL (70-110)
[2023-10-19] MEDS ORDERED: LACTATED RINGERS 1,000 ML IV ONE (18:41)
[2023-10-19 19:23] LABS: Glucose,Whole Blood 94 mg/dL (70-110)
[2023-10-19 19:25] LABS: Allen Test Performed? Yes
[2023-10-19 19:32] LABS: Basophils % (A) 0 %; Eosinophils % (A) 0 %; HCT 22.7 % (39.0-53.0); Lymphocytes # (A) 1.1 k/uL (1.0-4.8); Lymphocytes % (A) 8 %; MCH 28.6 pg (25.0-35.0); MCHC 33.1 g/dL (31.0-37.0); MCV 86.3 fL (80.0-100.0); Mean Platelet Volume 8.8; Monocytes # (A) 0.4 k/uL (0-1.0); Monocytes % (A) 3 %; Neutrophils # (A) 12.6 k/uL (1.3-7.7); Neutrophils % (A) 89 %; Platelet Count 269 k/uL (150-450); RBC 2.64 m/uL (4.30-5.90); RDW 15.4 % (11.5-15.5); WBC 14.2 k/uL (3.8-10.6)
[2023-10-19 19:33] LABS: ABG Base Excess -8.8 mmol/L; ABG HCO3 16 mmol/L (21-25); ABG PCO2 30 mmHg (35-45); ABG PH 7.34 (7.35-7.45); ABG PO2 383 mmHg (83-108)
[2023-10-19 19:48] LABS: HGB 7.5 gm/dL (13.0-17.5)
[2023-10-19 20:19] LABS: Glucose,Whole Blood 82 mg/dL (70-110)
--- NOTE | 2023-10-19 21:18 | P.OP ---
Date of Procedure: 10/19/23 Preoperative Diagnosis: Bilateral critical limb ischemia [place] Class III Postoperative Diagnosis: Bilateral lower extremity critical limb ischemia [place] Class III Bilateral popliteal, tibial artery thrombosis Bilateral superficial femoral artery occlusions Procedure(s) Performed: Open thrombectomy of bilateral popliteal, superficial femoral, and tibial arteries Selective bilateral tibial artery angiogram with retrograde femoral angiogram Open right common femoral artery cutdown Right femoral artery access with 6F sheath Left lower extremity angiogram Left superficial femoral artery balloon angioplasty Left transluminal stenting of the superficial femoral artery Selective right lower extremity angiogram Right superficial femoral artery balloon angioplasty Right transluminal stenting of the superficial femoral artery Bilateral 4 compartment fasciotomy Ultrasound-guided left common femoral vein temporary hemodialysis catheter placement Anesthesia: BR[place] Surgeon: Evaristo Brady Information Broker #1: Alivia Tripp Estimated Blood Loss (ml): 100 Pathology: none sent Condition: critical Disposition: ICU Indications for Procedure: 72 year old male presented to the ER with bilateral lower extremity weakness, cold legs from the thigh down bilaterally. He was mottled from the thigh to the feet bilaterally and was unable to move his feet and therefore discussion for emergent open thrombectomy to revascularize the legs was recommended. He presents for revascularization. Operative Findings: Thrombosed superficial femoral, popliteal and tibial arteries bilaterally Occluded bilateral superficial femoral arteries Description of Procedure: After written and informed consent was obtained the patient and all risks, benefits and complications including limb loss and were discussed the patient was brought to the operative suite and laid in the supine position. The area of the abdomen and bilateral lower extremities was prepped and draped in usual sterile fashion after appropriate anesthetic was performed per the anesthesiologist. Timeout was performed in normal fashion and antibiotics were administered. Incision was created just distal to the knee on the medial aspect with a 10 blade scalpel bilaterally and dissection was carried down to the distal popliteal artery and tibioperoneal trunk. The popliteal artery and tibioperoneal trunk including the anterior tibial artery was dissected free in a circumferential manner and controlled with vessel loops. Arteriotomy was then created with an 11 blade scalpel just above the takeoff of the anterior tibial artery and open thrombectomy was performed with 3 and 2 Otilia's with thrombus removed from the anterior and posterior tibial arteries bilaterally as well as proximally in the popliteal and superficial femoral artery. The Otilia catheter was unable to be passed past the 25 cm jimmy and therefore retrograde angiogram was obtained demonstrating occlusion of the superficial femoral arteries bilaterally. Distal angiogram was also obtained demonstrating improved blood flow without any significant thrombus once thrombectomy was completed. At that time was determined to improve the inflow and attention was then placed to the right common femoral artery. Incision was created in an oblique fashion with a 10 blade scalpel at the right groin and dissection was carried down to the common femoral artery. The common femoral artery, profunda and superficial femoral arteries were dissected free in a circumferential manner and controlled with vessel loops. The common femoral artery was then accessed with a multipurpose needle and guidewire was placed under direct visualization of fluoroscopy followed by a 6-Azerbaijani sheath. Guidewire was placed followed by an RBI catheter and an up and over fashion the left iliac was accessed and selective angiogram was performed demonstrating significant calcific disease throughout with marked occlusion of the superficial femoral artery at the midportion at Dimas's canal. Guidewire was then placed to this area followed by an angled catheter. 035 Glidewire advantage was then placed followed by a 6- Azerbaijani 45 cm destination sheath and up and over fashion. Utilizing the guidewire a crossing catheter was placed and the lesion was crossed. Crossing catheter was then placed across the lesion and distal angiogram was obtained demonstrating good intraluminal access. Wire was then exchanged for an 018 wire and utilizing a 6 mm chocolate balloon balloon angioplasty was performed across portion of the lesion. We were unable to place the balloon across the distal aspect and therefore it was replaced with a 5 mm [place] balloon. Balloon angioplasty was then performed across the lesion and its entirety which measured 120 mm. Due to the occlusion and thrombus as well as acute nature a Cinebar covered stent was chosen to be placed across this lesion to improve the inflow. A 6 x 150 mm Cinebar covered stent was then placed followed by the 5 mm balloon for postdilatation. Finally gram was obtained demonstrating brisk inflow and good blood flow to the anterior tibial and peroneal artery. There was a palpable pulse at the tibioperoneal trunk once completed. All guidewires and catheters were removed and sheath was removed and attention was then placed to the right lower extremity. The arteriotomy site was then closed with 6-0 Prolene suture. The femoral artery was noted to have occlusion at the SFA and therefore arteriotomy was created just above the SFA with 11 blade scalpel. This was extended to the SFA demonstrating a large amount of thrombus which was removed. There was calcific disease throughout and Otilia catheter was placed with good removal of proximal thrombus of the SFA. 6-Azerbaijani sheath was then placed and angiogram was obtained demonstrating once again occlusion at the superficial femoral artery. Guidewire was placed across this lesion followed by a quick cross catheter and selective angiogram was obtained of the right lower extremity demonstrating good intraluminal access. A 018 wire was then placed followed by the 5 mm balloon and balloon angioplasty was performed across the lesion. A Cinebar covered sheath measuring 100 mm was then chosen and placed across the lesion. Postdilatation was then performed with good brisk inflow noted. Final angiogram was obtained demonstrating flow to the ankle on the right. Attention was then placed to perform the fasciotomies. Medial and lateral incisions were then created with a 10 blade scalpel and dissection was carried down to the fascia which was extended from the medial and lateral aspects of the knee extending to the ankles bilaterally opening up the 4 compartments of the lower leg. The muscle tissue appeared to be viable bilaterally. The incision in the groin was then irrigated and suctioned dry once hemostatic was closed in a multilayer fashion and skin was cleansed and dressed with a incisional VAC. Attention was then placed to placing the temporary hemodialysis catheter. Utilizing ultrasound the left common femoral vein was located and shown to be compressible without thrombus. Utilizing a multipurpose needle the vein was accessed and guidewire was placed. A 16 cm heparin hemodialysis catheter was then placed in normal fashion. Once placed it albin and flushed easily and was hep-locked. The patient tolerated seizure well and required significant amounts of bicarb as well as pressor support during the entirety of the procedure and was sent to PACU for recovery. He did have multiphasic signal distal to his popliteal arteries with good visualization of flow noted under fluoroscopy to his ankles. There was improved coloring of the lower leg.
[2023-10-19 21:32] LABS: Glucose,Whole Blood 42 mg/dL (70-110)
[2023-10-19] MEDS ORDERED: propofoL 100 ML IV ONE (21:35)
--- NOTE | 2023-10-19 21:37 | P.CONS ---
History of Present Illness - Reason for Consult Consult date: 10/19/23 Sepsis, cellulitis to the groin Requesting physician: Umesh Webb - Chief Complaint Pain to bilateral lower extremity X 1 day - History of Present Illness Patient is a 72-year-old male with a past medical history significant for coronary disease diabetes mellitus hypertension hyperlipidemia OR hypothyroidism the patient was recently admitted at this facility on 10/07/2023 patient was diagnosed with a COVID-19 and also have concern for colitis he did have a colonoscopy biopsy was in no specific diagnosis patient was discharged on a course of oral antibiotic therapy patient has not been brought back to the ER with concern for mental status changes, patient apparently was noted to be hypoglycemic with with a low blood sugar of 40 patient received some dextrose and subsequently was brought into the hospital patient was complaining of bilateral lower extremity pain apparently started this morning patient denies any history of any trauma describes the pain to be more dull aching to sharp severe intensity without any radiation patient denies any fever or any chills and no fever was noted on presentation to the hospital, patient did have some groin area excoriation with concern for cellulitis patient was started on cefepime and vancomycin infectious disease was consulted for further management of antibiotic therapy, patient on presentation the hospital was afebrile patient was not tachycardic or hypotensive he did have vital of 18,000 with a left shift elevated lactic acid did have elevated serum creatinine of 7.47 Review of Systems Positive point and negatives has been mentioned in the HPI, complete review of systems was performed and all other systems are negative Past Medical History Past Medical History: Coronary Artery Disease (CAD), Heart Failure, Diabetes Mellitus, Hyperlipidemia, Hypertension, Myocardial Infarction (OR), Syncope, Thyroid Disorder Additional Past Medical History / Comment(s): CT of the brain in September 2017 demonstrated old right lacunar infarct Last Myocardial Infarction Date:: 12/06/2018 History of Any Multi-Drug Resistant Organisms: None Reported Past Surgical History: Coronary Bypass/CABG, Orthopedic Surgery Additional Past Surgical History / Comment(s): right hip Past Anesthesia/Blood Transfusion Reactions: No Reported Reaction Past Psychological History: Bipolar, PTSD Smoking Status: Never smoker Past Alcohol Use History: None Reported Past Drug Use History: None Reported - Past Family History Father Family Medical History: No Reported History Mother History Unknown: Yes Family Medical History: No Reported History Medications and Allergies Home Medications Medication Instructions Recorded Confirmed Type metFORMIN HCL 500 mg PO TID 02/06/19 10/19/23 History Atorvastatin [Lipitor] 40 mg PO HS 10/09/19 10/19/23 History amLODIPine [Norvasc] 10 mg PO DAILY #30 tab 11/09/22 10/19/23 Rx Metoprolol Tartrate [Lopressor] 12.5 mg PO BID 09/16/23 10/19/23 History Insulin Regular, Human [Novolin R] See Protocol SQ ACHS 10/07/23 10/19/23 History Pantoprazole [Protonix] 40 mg PO DAILY 10/07/23 10/19/23 History cefUROXime axetiL [Ceftin] 500 mg PO BID 10 Days #20 tab 10/12/23 10/19/23 Rx metroNIDAZOLE [Flagyl] 500 mg PO TID #30 tab 10/12/23 10/19/23 Rx Clopidogrel [Plavix] 75 mg PO DAILY 10/19/23 10/19/23 History Levothyroxine Sodium [Synthroid] 112 mcg PO DAILY 10/19/23 10/19/23 History Loperamide HCl [Loperamide] 2 - 4 mg PO TID PRN 10/19/23 10/19/23 History Memantine HCl [Namenda] 5 mg PO BID 10/19/23 10/19/23 History Allergies Allergy/AdvReac Type Severity Reaction Status Date / Time No Known Allergies Allergy Verified 10/19/23 12:42 Physical Exam Vitals: Vital Signs Temp Pulse Pulse Resp BP BP Pulse Ox 10/19/23 14:20 97 F L 86 25 H 134/63 100 10/19/23 14:00 88 26 H 152/71 100 10/19/23 13:00 81 29 H 97/59 100 10/19/23 12:59 82 32 H 135/68 100 10/19/23 12:30 84 23 107/57 80 L 10/19/23 11:47 82 28 H 91/52 100 10/19/23 11:15 11 L 10/19/23 11:09 96.8 F L 125 H 26 H 115/57 100 Intake and Output 10/19/23 10/19/23 10/19/23 06:59 14:59 22:59 Other: Weight 97.522 kg GENERAL DESCRIPTION: Elderly male lying in bed, no distress. No tachypnea or accessory muscle of respiration use. HEENT: Shows Pallor , no scleral icterus. Oral mucous membrane is dry. No pharyngeal erythema or thrush NECK: Trachea central, no thyromegaly. LUNGS: Unlabored breathing. Clear to auscultation anteriorly. No wheeze or crackle. HEART: S1, S2, regular rate and rhythm. No loud murmur ABDOMEN: Soft, no tenderness EXTREMITIES: Patient did have some excoriation to the groin area however he was noticed to have significant mottling to bilateral lower extremity which is cold to touch SKIN: No rash, no masses palpable. NEUROLOGICAL: The patient is awake, alert, oriented x3, mood and affect normal. Results CBC & Chem 7: 10/19/23 19:25 10/19/23 11:41 Labs: Abnormal Lab Results - Last 24 Hours (Table) 10/19/23 10/19/23 10/19/23 Range/Units 11:41 11:41 11:41 WBC 18.0 H (3.8-10.6) k/uL RBC 3.98 L (4.30-5.90) m/uL Hgb 11.2 L (13.0-17.5) gm/dL Hct 35.7 L (39.0-53.0) % Neutrophils # 16.3 H (1.3-7.7) k/uL Lymphocytes # 0.8 L (1.0-4.8) k/uL INR (<1.2) APTT (22.0-30.0) sec Sodium (137-145) mmol/L Potassium (3.5-5.1) mmol/L Chloride (98-107) mmol/L Carbon Dioxide (22-30) mmol/L BUN (9-20) mg/dL Creatinine (0.66-1.25) mg/dL POC Glucose (mg/dL) (70-110) mg/dL Plasma Lactic Acid Lior (0.7-2.0) mmol/L Calcium (8.4-10.2) mg/dL AST (17-59) U/L ALT (4-49) U/L Creatine Kinase (55-170) U/L Troponin I (0.000-0.034) ng/mL Albumin (3.5-5.0) g/dL Urine Protein 2+ H (Negative) Urine Ketones Trace H (Negative) Urine Blood Moderate H (Negative) Urine WBC 12 H (0-5) /hpf Urine WBC Clumps Few H (None) /hpf Urine Bacteria Rare H (None) /hpf Hyaline Casts 80 H (0-2) /lpf Urine Mucus Many H (None) /hpf SARS-CoV-2 (PCR) Detected A (Not Detectd) 10/19/23 10/19/23 10/19/23 Range/Units 11:41 11:41 11:41 WBC (3.8-10.6) k/uL RBC (4.30-5.90) m/uL Hgb (13.0-17.5) gm/dL Hct (39.0-53.0) % Neutrophils # (1.3-7.7) k/uL Lymphocytes # (1.0-4.8) k/uL INR (<1.2) APTT (22.0-30.0) sec Sodium 147 H (137-145) mmol/L Potassium 5.4 H (3.5-5.1) mmol/L Chloride 110 H (98-107) mmol/L Carbon Dioxide 7 L* (22-30) mmol/L BUN 53 H (9-20) mg/dL Creatinine 7.47 H* (0.66-1.25) mg/dL POC Glucose (mg/dL) (70-110) mg/dL Plasma Lactic Acid Lior 10.5 H* (0.7-2.0) mmol/L Calcium 7.9 L (8.4-10.2) mg/dL AST 243 H (17-59) U/L ALT 78 H (4-49) U/L Creatine Kinase (55-170) U/L Troponin I 0.055 H* (0.000-0.034) ng/mL Albumin 3.2 L (3.5-5.0) g/dL Urine Protein (Negative) Urine Ketones (Negative) Urine Blood (Negative) Urine WBC (0-5) /hpf Urine WBC Clumps (None) /hpf Urine Bacteria (None) /hpf Hyaline Casts (0-2) /lpf Urine Mucus (None) /hpf SARS-CoV-2 (PCR) (Not Detectd) 10/19/23 10/19/23 10/19/23 Range/Units 12:22 12:22 13:36 WBC (3.8-10.6) k/uL RBC (4.30-5.90) m/uL Hgb (13.0-17.5) gm/dL Hct (39.0-53.0) % Neutrophils # (1.3-7.7) k/uL Lymphocytes # (1.0-4.8) k/uL INR 1.2 H (<1.2) APTT 21.1 L (22.0-30.0) sec Sodium (137-145) mmol/L Potassium (3.5-5.1) mmol/L Chloride (98-107) mmol/L Carbon Dioxide (22-30) mmol/L BUN (9-20) mg/dL Creatinine (0.66-1.25) mg/dL POC Glucose (mg/dL) 119 H (70-110) mg/dL Plasma Lactic Acid Lior (0.7-2.0) mmol/L Calcium (8.4-10.2) mg/dL AST (17-59) U/L ALT (4-49) U/L Creatine Kinase 8909 H* (55-170) U/L Troponin I (0.000-0.034) ng/mL Albumin (3.5-5.0) g/dL Urine Protein (Negative) Urine Ketones (Negative) Urine Blood (Negative) Urine WBC (0-5) /hpf Urine WBC Clumps (None) /hpf Urine Bacteria (None) /hpf Hyaline Casts (0-2) /lpf Urine Mucus (None) /hpf SARS-CoV-2 (PCR) (Not Detectd) Assessment and Plan Plan: 1patient presented to hospital with low blood sugar patient also complaining of bilateral lower extremity pain without any history of any trauma patient was noticed to have mottled bilateral lower extremity and high clinical suspicious for arterial insufficiency for which vascular surgery has seen the patient and planning for arterial thrombectomy currently suspicious of for cellulitis to bilateral lower extremity 2-patient did have some excoriation of bilateral groin area possibly concerning for cutaneous candidiasis 3-renal insufficiency and high risk of nephrotoxicity from vancomycin 4-May continue cefepime awaiting further work-up to finalize however discontinue vancomycin to decrease risk of nephrotoxicity 5-nystatin powder to bilateral groin area twice a day We will follow on clinical condition and cultures to further adjust medication if needed Thank you for this consultation we will follow the patient along with you Dictation was produced using [employer] dictation software. please excuse any grammatical, word or spelling errors. Time with Patient: Greater than 30
[2023-10-19] MEDS ORDERED: NOREPINEPHRINE 4 MG in SODIUM CHLORIDE 0.9% 250 ML IV SCH ×2 (21:45→22:00)
[2023-10-19 21:55] LABS: Glucose,Whole Blood 153 mg/dL (70-110)
[2023-10-19 22:10] LABS: Anion Gap 21 mmol/L; Blood Urea Nitrogen 51 mg/dL (9-20); Carbon Dioxide 11 mmol/L (22-30); Chloride 116 mmol/L (98-107); Glucose 76 mg/dL (74-99); Magnesium 1.9 mg/dL (1.6-2.3); Potassium 4.8 mmol/L (3.5-5.1); Sodium 148 mmol/L (137-145)
[2023-10-19 22:16] LABS: African American GFR (CKD) 11 (>60 ml/min/1.73 sqM); Non-African American GFR(CKD) 9 (>60 ml/min/1.73 sqM)
[2023-10-19 22:17] LABS: Calcium 6.1 mg/dL (8.4-10.2)
[2023-10-19] MEDS: SODIUM CHLORIDE 0.9% 1,000 ML IV SCH ×2 (23:40→23:45)
[2023-10-19] MEDS: DEXTROSE 5% IN WATER 1,000 ML with SODIUM BICARB (1 MEQ/ML) 150 ML IV SCH (23:41)
[2023-10-19 23:55] LABS: Glucose,Whole Blood 155 mg/dL (70-110)
[2023-10-20] MEDS: NOREPINEPHRINE 8 MG in SODIUM CHLORIDE 0.9% 250 ML IV SCH ×4 (01:42→23:20)
[2023-10-20] MEDS: SODIUM CHLORIDE 0.9% 80 ML with fentaNYL (PF) 1,000 MCG IV SCH ×4 (03:25→22:09)
[2023-10-20] MEDS ORDERED: NALOXONE 0.4 MG/ML 1 ML VIAL IV PRN (04:11)
[2023-10-20 05:08] LABS: Basophils % (A) 0 %; Eosinophils # (A) 0.1 k/uL (0-0.7); Eosinophils % (A) 0 %; HCT 33.5 % (39.0-53.0); Hypochromasia Slight; Lymphocytes # (A) 0.7 k/uL (1.0-4.8); Lymphocytes % (A) 3 %; MCH 28.4 pg (25.0-35.0); MCHC 32.4 g/dL (31.0-37.0); MCV 87.5 fL (80.0-100.0); Mean Platelet Volume 8.8; Monocytes # (A) 0.6 k/uL (0-1.0); Monocytes % (A) 3 %; Neutrophils # (A) 21.2 k/uL (1.3-7.7); Neutrophils % (A) 93 %; Platelet Count 248 k/uL (150-450); Poikilocytosis Slight; RBC 3.83 m/uL (4.30-5.90); RDW 15.5 % (11.5-15.5); WBC 22.8 k/uL (3.8-10.6)
[2023-10-20 05:17] LABS: HGB 10.9 gm/dL (13.0-17.5)
[2023-10-20 05:55] LABS: ALT 88 U/L (4-49); AST 473 U/L (17-59); Albumin 2.9 g/dL (3.5-5.0); Alkaline Phosphatase 62 U/L (38-126); Anion Gap 19 mmol/L; Blood Urea Nitrogen 51 mg/dL (9-20); Carbon Dioxide 14 mmol/L (22-30); Chloride 113 mmol/L (98-107); Glucose 111 mg/dL (74-99); Sodium 146 mmol/L (137-145); Total Bilirubin 0.4 mg/dL (0.2-1.3); Total Protein 5.5 g/dL (6.3-8.2)
[2023-10-20 06:01] LABS: African American GFR (CKD) 10 (>60 ml/min/1.73 sqM); Non-African American GFR(CKD) 9 (>60 ml/min/1.73 sqM)
[2023-10-20 06:15] LABS: Glucose,Whole Blood 121 mg/dL (70-110)
[2023-10-20] MEDS ORDERED: SODIUM BICARB 8.4% 50 ML SYR (1 MEQ/ML) IV STA (06:21)
[2023-10-20 06:43] LABS: Calcium 5.5 mg/dL (8.4-10.2)
--- NOTE | 2023-10-20 07:22 | XR ---
EXAMINATION TYPE: XR chest 1V portable DATE OF EXAM: 10/20/2023 COMPARISON: 10/19/2023 HISTORY: SOB, Follow Up FINDINGS: Endotracheal tube noted with its distal tip 6.3 cm from the luis. Left IJ central venous line with distal tip overlying the SVC. No change in bibasilar opacities. Stable appearance of the cardio-mediastinal structures at this time. IMPRESSION: 1. Stable portable chest. Clinical correlation and follow up until resolution is recommended.
--- NOTE | 2023-10-20 08:04 | FL ---
Fluoroscopy History: bilateral lower extremity open thrombectomy bilateral lower extremity open thrombectomy. FL time 19 min 42.1 seconds. DAP 110.[address] Ariane hicks.
[2023-10-20] MEDS ORDERED: CALCIUM GLUCONATE IN NACL 2 GM in SALINE 1 100ML.BAG IVPB ONE (08:09)
--- NOTE | 2023-10-20 08:26 | US ---
EXAMINATION TYPE: US kidneys/renal and bladder DATE OF EXAM: 10/20/2023 COMPARISON: NONE CLINICAL INDICATION: Male, 72 years old with history of Pankaj; Intubated ICU patient, PANKAJ EXAM MEASUREMENTS: Right Kidney: 10.4 x 3.5 x 5.1 cm Left Kidney: 12.2 x 5.6 x 4.1 cm Right Kidney: No hydronephrosis or masses seen Left Kidney: No hydronephrosis or masses seen Bladder: gu There is no evidence for hydronephrosis at this point in time. No nephrolithiasis is seen. No foster s are identified. The urinary bladder is decompressed. Bilateral ureteral jets are seen. IMPRESSION: No significant abnormality appreciated.
[2023-10-20] MEDS ORDERED: INSULIN REGULAR 100 UNIT/ML VIAL (IV) IV ONE (08:43)
[2023-10-20] MEDS ORDERED: DEXTROSE 50% SYRINGE 50 ML IVP STA (08:44)
[2023-10-20] MEDS: CHLORHEXIDINE GLUCONATE 15 ML CUP MUCOUS MEM SCH ×2 (08:51→20:44)
[2023-10-20] MEDS: PANTOPRAZOLE 40 MG/10 ML VIAL IV SCH (08:51)
[2023-10-20] MEDS: CEFEPIME 1 GM in SODIUM CHLORIDE 0.9% 50 ML IVPB SCH (08:51)
[2023-10-20] MEDS: NYSTATIN 100,000 UNIT/GM POWD 15 GM TOPICAL SCH ×2 (10:07→20:45)
[2023-10-20] MEDS ORDERED: VANCOMYCIN 1,500 MG in SODIUM CHLORIDE 0.9% 500 ML 500 ML IVPB ONE (12:00)
--- NOTE | 2023-10-20 12:38 | OP ---
OPERATIVE REPORT DATE OF SERVICE : PROCEDURE PERFORMED: Placement of a right brachial arterial line. PREOPERATIVE DIAGNOSES: Acute hypoxic respiratory failure and hypotension requiring pressors. POSTOPERATIVE DIAGNOSES: Acute hypoxic respiratory failure and hypotension requiring pressors. ANESTHESIA USED: None deployed. DESCRIPTION OF PROCEDURE: The patient was placed in the supine position, the right brachial region was prepared in a sterile fashion. Drapes were applied. The right brachial artery was palpated, easily cannulated, and a guidewire was placed. A Cook's catheter was inserted over the guidewire, and the guidewire was removed. Good blood flow and good waveform noted, no complications, line was secured using 3.0 silk sutures. MMODL / IJN: [id number] /
--- NOTE | 2023-10-20 12:43 | P.PN ---
Subjective Progress Note Date: 10/20/23 Patient seen and examined. Remains intubated and sedated on pressor support although decreasing. No acute events overnight per nursing. Did receive 2 units of blood initiated in the OR and finished overnight. Objective - Vital Signs Vital signs: Vital Signs Temp 98.2 F 10/20/23 12:33 Pulse 108 H 10/20/23 12:33 Resp 15 10/20/23 12:33 BP 102/49 10/20/23 12:33 Pulse Ox 99 10/20/23 12:33 FiO2 50 10/20/23 12:33 Intake & Output 10/19/23 10/20/23 10/20/23 18:59 06:59 18:59 Intake Total 2102 8771.684 3732.152 Output Total 410 1700 Balance 2102 1020.907 -333.848 Weight 97.522 kg 113.4 kg 113.4 kg Intake: IV 2102 500 250 Dextrose 5% in Water 1, 500 250 000 ml @ 50 mls/hr IV . Q23H [facility] with Sodium Bicarb (1 Meq/ml) 150 ml Rx#:[id number] Intake, IV Titration 310.907 216.152 Amount Heparin Sod,Pork in 0.45% 108.667 NaCl 25,000 unit In 0.45 % NaCl 1 250ml.bag @ 10. 254 UNITS/KG/HR 10 mls/hr IV .Q24H [facility] Rx#: [id number] Norepinephrine 4 mg In 6.131 Sodium Chloride 0.9% 250 ml @ 0.03 MCG/KG/MIN 11. 147 mls/hr IV .[id number] [facility] Rx#:[id number] Norepinephrine 4 mg In 5.945 Sodium Chloride 0.9% 250 ml @ 0.03 MCG/KG/MIN 11. 147 mls/hr IV .[id number] [facility] Rx#:[id number] Norepinephrine 8 mg In 104.165 153.835 Sodium Chloride 0.9% 250 ml @ 0.03 MCG/KG/MIN 5. 661 mls/hr IV .Q24H [facility] Rx#:[id number] Sodium Chloride 0.9% 80 10.808 ml @ 0.5 MCG/KG/HR 4.876 mls/hr IV .[id number] [facility] with fentaNYL (PF) 1,000 mcg Rx#:[id number] propofoL 1,000 mg In 75.191 62.317 Empty Bag 1 bag @ 15 MCG/ KG/MIN 8.777 mls/hr IV . [id number] [facility] Rx#:[id number] Blood Product 620 Rc As-1 Unit 310 [id number] Rc As-1 Unit 310 [id number] Hemodialysis 900 Output: Urine 10 0 Hemodialysis 1700 Estimated Blood Loss 400 Other: Voiding Method Indwelling Catheter Indwelling Catheter ABP, PAP, CO, CI - Last Documented Arterial Blood Pressure 87/46 - Exam Intubated sedated on the ventilator. Heart mildly tachycardic. Coarse breath sounds. Right groin incisional VAC in place. Left groin temp cath in place, finishing dialysis. Bilateral lower extremities significant improvement of mottling. Warm to at least the mid foot. Multiphasic DP signals bilaterally. Difficult to find PT. Evidence of ischemic changes still to the toes - Labs CBC & Chem 7: 10/20/23 04:55 10/20/23 04:55 Labs: Abnormal Lab Results - Last 24 Hours (Table) 10/19/23 10/19/23 10/19/23 Range/Units 11:41 11:41 11:42 WBC (3.8-10.6) k/uL RBC (4.30-5.90) m/uL Hgb (13.0-17.5) gm/dL Hct (39.0-53.0) % Neutrophils # (1.3-7.7) k/uL Lymphocytes # (1.0-4.8) k/uL INR (<1.2) APTT (22.0-30.0) sec ABG pH (7.35-7.45) ABG pCO2 (35-45) mmHg ABG pO2 (83-108) mmHg ABG HCO3 (21-25) mmol/L ABG O2 Saturation (94-97) % Sodium (137-145) mmol/L Potassium (3.5-5.1) mmol/L Chloride (98-107) mmol/L Carbon Dioxide (22-30) mmol/L BUN (9-20) mg/dL Creatinine (0.66-1.25) mg/dL Glucose (74-99) mg/dL POC Glucose (mg/dL) (70-110) mg/dL Hemoglobin A1c 9.3 H (<=6.0) % Plasma Lactic Acid Lior (0.7-2.0) mmol/L Calcium (8.4-10.2) mg/dL Ionized Calcium Rich (4.5-5.3) mg/dL AST (17-59) U/L ALT (4-49) U/L Creatine Kinase (55-170) U/L Troponin I (0.000-0.034) ng/mL C-Reactive Protein 7.3 H (<1.0) mg/dL Total Protein (6.3-8.2) g/dL Albumin (3.5-5.0) g/dL Procalcitonin 57.50 H (0.02-0.09) ng/mL Crossmatch 10/19/23 10/19/23 10/19/23 Range/Units 12:22 12:22 13:36 WBC (3.8-10.6) k/uL RBC (4.30-5.90) m/uL Hgb (13.0-17.5) gm/dL Hct (39.0-53.0) % Neutrophils # (1.3-7.7) k/uL Lymphocytes # (1.0-4.8) k/uL INR 1.2 H (<1.2) APTT 21.1 L (22.0-30.0) sec ABG pH (7.35-7.45) ABG pCO2 (35-45) mmHg ABG pO2 (83-108) mmHg ABG HCO3 (21-25) mmol/L ABG O2 Saturation (94-97) % Sodium (137-145) mmol/L Potassium (3.5-5.1) mmol/L Chloride (98-107) mmol/L Carbon Dioxide (22-30) mmol/L BUN (9-20) mg/dL Creatinine (0.66-1.25) mg/dL Glucose (74-99) mg/dL POC Glucose (mg/dL) 119 H (70-110) mg/dL Hemoglobin A1c (<=6.0) % Plasma Lactic Acid Lior (0.7-2.0) mmol/L Calcium (8.4-10.2) mg/dL Ionized Calcium Rich (4.5-5.3) mg/dL AST (17-59) U/L ALT (4-49) U/L Creatine Kinase 8909 H* (55-170) U/L Troponin I (0.000-0.034) ng/mL C-Reactive Protein (<1.0) mg/dL Total Protein (6.3-8.2) g/dL Albumin (3.5-5.0) g/dL Procalcitonin (0.02-0.09) ng/mL Crossmatch 10/19/23 10/19/23 10/19/23 Range/Units 14:45 15:39 17:12 WBC (3.8-10.6) k/uL RBC (4.30-5.90) m/uL Hgb (13.0-17.5) gm/dL Hct (39.0-53.0) % Neutrophils # (1.3-7.7) k/uL Lymphocytes # (1.0-4.8) k/uL INR (<1.2) APTT (22.0-30.0) sec ABG pH 7.18 L* (7.35-7.45) ABG pCO2 (35-45) mmHg ABG pO2 396 H (83-108) mmHg ABG HCO3 13 L (21-25) mmol/L ABG O2 Saturation 99.7 H (94-97) % Sodium (137-145) mmol/L Potassium (3.5-5.1) mmol/L Chloride (98-107) mmol/L Carbon Dioxide (22-30) mmol/L BUN (9-20) mg/dL Creatinine (0.66-1.25) mg/dL Glucose (74-99) mg/dL POC Glucose (mg/dL) 44 L (70-110) mg/dL Hemoglobin A1c (<=6.0) % Plasma Lactic Acid Lior (0.7-2.0) mmol/L Calcium (8.4-10.2) mg/dL Ionized Calcium Rich (4.5-5.3) mg/dL AST (17-59) U/L ALT (4-49) U/L Creatine Kinase (55-170) U/L Troponin I (0.000-0.034) ng/mL C-Reactive Protein (<1.0) mg/dL Total Protein (6.3-8.2) g/dL Albumin (3.5-5.0) g/dL Procalcitonin (0.02-0.09) ng/mL Crossmatch See Detail 10/19/23 10/19/23 10/19/23 Range/Units 17:38 17:48 18:31 WBC (3.8-10.6) k/uL RBC (4.30-5.90) m/uL Hgb (13.0-17.5) gm/dL Hct (39.0-53.0) % Neutrophils # (1.3-7.7) k/uL Lymphocytes # (1.0-4.8) k/uL INR (<1.2) APTT (22.0-30.0) sec ABG pH 7.26 L (7.35-7.45) ABG pCO2 26 L (35-45) mmHg ABG pO2 365 H (83-108) mmHg ABG HCO3 12 L (21-25) mmol/L ABG O2 Saturation 99.7 H (94-97) % Sodium (137-145) mmol/L Potassium (3.5-5.1) mmol/L Chloride (98-107) mmol/L Carbon Dioxide (22-30) mmol/L BUN (9-20) mg/dL Creatinine (0.66-1.25) mg/dL Glucose (74-99) mg/dL POC Glucose (mg/dL) 149 H 111 H (70-110) mg/dL Hemoglobin A1c (<=6.0) % Plasma Lactic Acid Lior (0.7-2.0) mmol/L Calcium (8.4-10.2) mg/dL Ionized Calcium Rich (4.5-5.3) mg/dL AST (17-59) U/L ALT (4-49) U/L Creatine Kinase (55-170) U/L Troponin I (0.000-0.034) ng/mL C-Reactive Protein (<1.0) mg/dL Total Protein (6.3-8.2) g/dL Albumin (3.5-5.0) g/dL Procalcitonin (0.02-0.09) ng/mL Crossmatch 10/19/23 10/19/23 10/19/23 Range/Units 19:25 19:25 19:25 WBC 14.2 H (3.8-10.6) k/uL RBC 2.64 L (4.30-5.90) m/uL Hgb 7.5 L D (13.0-17.5) gm/dL Hct 22.7 L (39.0-53.0) % Neutrophils # 12.6 H (1.3-7.7) k/uL Lymphocytes # (1.0-4.8) k/uL INR (<1.2) APTT (22.0-30.0) sec ABG pH (7.35-7.45) ABG pCO2 (35-45) mmHg ABG pO2 (83-108) mmHg ABG HCO3 (21-25) mmol/L ABG O2 Saturation (94-97) % Sodium 148 H (137-145) mmol/L Potassium (3.5-5.1) mmol/L Chloride 116 H (98-107) mmol/L Carbon Dioxide 11 L (22-30) mmol/L BUN 51 H (9-20) mg/dL Creatinine 5.69 H (0.66-1.25) mg/dL Glucose (74-99) mg/dL POC Glucose (mg/dL) (70-110) mg/dL Hemoglobin A1c (<=6.0) % Plasma Lactic Acid Lior (0.7-2.0) mmol/L Calcium 6.1 L* (8.4-10.2) mg/dL Ionized Calcium Rich (4.5-5.3) mg/dL AST (17-59) U/L ALT (4-49) U/L Creatine Kinase (55-170) U/L Troponin I 0.048 H* (0.000-0.034) ng/mL C-Reactive Protein (<1.0) mg/dL Total Protein (6.3-8.2) g/dL Albumin (3.5-5.0) g/dL Procalcitonin (0.02-0.09) ng/mL Crossmatch 10/19/23 10/19/23 10/19/23 Range/Units 19:25 20:00 20:50 WBC (3.8-10.6) k/uL RBC (4.30-5.90) m/uL Hgb (13.0-17.5) gm/dL Hct (39.0-53.0) % Neutrophils # (1.3-7.7) k/uL Lymphocytes # (1.0-4.8) k/uL INR (<1.2) APTT >200.0 H* (22.0-30.0) sec ABG pH 7.34 L (7.35-7.45) ABG pCO2 30 L (35-45) mmHg ABG pO2 383 H (83-108) mmHg ABG HCO3 16 L (21-25) mmol/L ABG O2 Saturation 100.0 H (94-97) % Sodium (137-145) mmol/L Potassium (3.5-5.1) mmol/L Chloride (98-107) mmol/L Carbon Dioxide (22-30) mmol/L BUN (9-20) mg/dL Creatinine (0.66-1.25) mg/dL Glucose (74-99) mg/dL POC Glucose (mg/dL) (70-110) mg/dL Hemoglobin A1c (<=6.0) % Plasma Lactic Acid Lior 5.5 H* (0.7-2.0) mmol/L Calcium (8.4-10.2) mg/dL Ionized Calcium Rich (4.5-5.3) mg/dL AST (17-59) U/L ALT (4-49) U/L Creatine Kinase (55-170) U/L Troponin I (0.000-0.034) ng/mL C-Reactive Protein (<1.0) mg/dL Total Protein (6.3-8.2) g/dL Albumin (3.5-5.0) g/dL Procalcitonin (0.02-0.09) ng/mL Crossmatch 10/19/23 10/19/23 10/19/23 Range/Units 21:30 21:54 23:53 WBC (3.8-10.6) k/uL RBC (4.30-5.90) m/uL Hgb (13.0-17.5) gm/dL Hct (39.0-53.0) % Neutrophils # (1.3-7.7) k/uL Lymphocytes # (1.0-4.8) k/uL INR (<1.2) APTT (22.0-30.0) sec ABG pH (7.35-7.45) ABG pCO2 (35-45) mmHg ABG pO2 (83-108) mmHg ABG HCO3 (21-25) mmol/L ABG O2 Saturation (94-97) % Sodium (137-145) mmol/L Potassium (3.5-5.1) mmol/L Chloride (98-107) mmol/L Carbon Dioxide (22-30) mmol/L BUN (9-20) mg/dL Creatinine (0.66-1.25) mg/dL Glucose (74-99) mg/dL POC Glucose (mg/dL) 42 L 153 H 155 H (70-110) mg/dL Hemoglobin A1c (<=6.0) % Plasma Lactic Acid Lior (0.7-2.0) mmol/L Calcium (8.4-10.2) mg/dL Ionized Calcium Rich (4.5-5.3) mg/dL AST (17-59) U/L ALT (4-49) U/L Creatine Kinase (55-170) U/L Troponin I (0.000-0.034) ng/mL C-Reactive Protein (<1.0) mg/dL Total Protein (6.3-8.2) g/dL Albumin (3.5-5.0) g/dL Procalcitonin (0.02-0.09) ng/mL Crossmatch 10/20/23 10/20/23 10/20/23 Range/Units 00:00 00:00 00:00 WBC (3.8-10.6) k/uL RBC (4.30-5.90) m/uL Hgb (13.0-17.5) gm/dL Hct (39.0-53.0) % Neutrophils # (1.3-7.7) k/uL Lymphocytes # (1.0-4.8) k/uL INR (<1.2) APTT 45.6 H (22.0-30.0) sec ABG pH (7.35-7.45) ABG pCO2 (35-45) mmHg ABG pO2 (83-108) mmHg ABG HCO3 (21-25) mmol/L ABG O2 Saturation (94-97) % Sodium (137-145) mmol/L Potassium (3.5-5.1) mmol/L Chloride (98-107) mmol/L Carbon Dioxide (22-30) mmol/L BUN (9-20) mg/dL Creatinine (0.66-1.25) mg/dL Glucose (74-99) mg/dL POC Glucose (mg/dL) (70-110) mg/dL Hemoglobin A1c (<=6.0) % Plasma Lactic Acid Lior 4.7 H* (0.7-2.0) mmol/L Calcium (8.4-10.2) mg/dL Ionized Calcium Rich (4.5-5.3) mg/dL AST (17-59) U/L ALT (4-49) U/L Creatine Kinase (55-170) U/L Troponin I 0.051 H* (0.000-0.034) ng/mL C-Reactive Protein (<1.0) mg/dL Total Protein (6.3-8.2) g/dL Albumin (3.5-5.0) g/dL Procalcitonin (0.02-0.09) ng/mL Crossmatch 10/20/23 10/20/23 10/20/23 Range/Units 04:55 04:55 04:55 WBC 22.8 H (3.8-10.6) k/uL RBC 3.83 L (4.30-5.90) m/uL Hgb 10.9 L D (13.0-17.5) gm/dL Hct 33.5 L (39.0-53.0) % Neutrophils # 21.2 H (1.3-7.7) k/uL Lymphocytes # 0.7 L (1.0-4.8) k/uL INR (<1.2) APTT 44.0 H (22.0-30.0) sec ABG pH (7.35-7.45) ABG pCO2 (35-45) mmHg ABG pO2 (83-108) mmHg ABG HCO3 (21-25) mmol/L ABG O2 Saturation (94-97) % Sodium 146 H (137-145) mmol/L Potassium 6.0 H (3.5-5.1) mmol/L Chloride 113 H (98-107) mmol/L Carbon Dioxide 14 L (22-30) mmol/L BUN 51 H (9-20) mg/dL Creatinine 5.96 H (0.66-1.25) mg/dL Glucose 111 H (74-99) mg/dL POC Glucose (mg/dL) (70-110) mg/dL Hemoglobin A1c (<=6.0) % Plasma Lactic Acid Lior (0.7-2.0) mmol/L Calcium 5.5 L* (8.4-10.2) mg/dL Ionized Calcium Rich (4.5-5.3) mg/dL AST 473 H (17-59) U/L ALT 88 H (4-49) U/L Creatine Kinase (55-170) U/L Troponin I (0.000-0.034) ng/mL C-Reactive Protein (<1.0) mg/dL Total Protein 5.5 L (6.3-8.2) g/dL Albumin 2.9 L (3.5-5.0) g/dL Procalcitonin (0.02-0.09) ng/mL Crossmatch 10/20/23 10/20/23 Range/Units 06:13 06:48 WBC (3.8-10.6) k/uL RBC (4.30-5.90) m/uL Hgb (13.0-17.5) gm/dL Hct (39.0-53.0) % Neutrophils # (1.3-7.7) k/uL Lymphocytes # (1.0-4.8) k/uL INR (<1.2) APTT (22.0-30.0) sec ABG pH (7.35-7.45) ABG pCO2 (35-45) mmHg ABG pO2 (83-108) mmHg ABG HCO3 (21-25) mmol/L ABG O2 Saturation (94-97) % Sodium (137-145) mmol/L Potassium (3.5-5.1) mmol/L Chloride (98-107) mmol/L Carbon Dioxide (22-30) mmol/L BUN (9-20) mg/dL Creatinine (0.66-1.25) mg/dL Glucose (74-99) mg/dL POC Glucose (mg/dL) 121 H (70-110) mg/dL Hemoglobin A1c (<=6.0) % Plasma Lactic Acid Lior (0.7-2.0) mmol/L Calcium (8.4-10.2) mg/dL Ionized Calcium Rich 3.3 L* (4.5-5.3) mg/dL AST (17-59) U/L ALT (4-49) U/L Creatine Kinase (55-170) U/L Troponin I (0.000-0.034) ng/mL C-Reactive Protein (<1.0) mg/dL Total Protein (6.3-8.2) g/dL Albumin (3.5-5.0) g/dL Procalcitonin (0.02-0.09) ng/mL Crossmatch Microbiology - Last 24 Hours (Table) 10/19/23 11:41 Urine Culture - Final Urine,Voided Assessment and Plan Assessment: 1. Acute bilateral critical limb ischemia status post revascularization 2. Acute renal failure secondary to above 3. Leukocytosis 4. Lactic acidosis secondary to #1 Plan: Patient appearing improved overall. Continue to monitor labs and supportive care. Daily dressing changes to the bilateral fasciotomy sites. We demarcation for potential need for sites of amputation, nothing urgent at this point. Multiphasic signals. If improvement, May consider potential staged closure in the future.
--- NOTE | 2023-10-20 12:54 | P.NPCON ---
History of Present Illness - Reason for Consult Consult date: 10/20/23 acute renal failure - Chief Complaint Acute renal failure. - History of Present Illness 72-year-old gentleman coming from al[place] with altered mental status. Recently diagnosed with Covid week prior to admission. He was hypoglycemic with sugars in 40s. He also had acute renal failure with a creatinine of 7.4 MG per DL, baseline of 0.8 MG per DL. He had rhabdomyolysis with a CK of 8900. He was oliguric, underwent fasciotomy. She developed hyperkalemia, intubated post surgery and currently on pressors. Review of Systems Constitutional: Reports as per HPI Past Medical History Past Medical History: Coronary Artery Disease (CAD), Heart Failure, Diabetes Mellitus, Hyperlipidemia, Hypertension, Myocardial Infarction ([place]), Syncope, Thyroid Disorder Additional Past Medical History / Comment(s): CT of the brain in September 2017 demonstrated old right lacunar infarct Last Myocardial Infarction Date:: 12/06/2018 History of Any Multi-Drug Resistant Organisms: None Reported Past Surgical History: Coronary Bypass/CABG, Orthopedic Surgery Additional Past Surgical History / Comment(s): right hip Past Anesthesia/Blood Transfusion Reactions: No Reported Reaction Past Psychological History: Bipolar, PTSD Smoking Status: Never smoker Past Alcohol Use History: None Reported Past Drug Use History: None Reported - Past Family History Father Family Medical History: No Reported History Mother History Unknown: Yes Family Medical History: No Reported History Medications and Allergies Home Medications Medication Instructions Recorded Confirmed Type RX: metFORMIN HCL 500 mg PO TID 02/06/19 10/19/23 History RX: Atorvastatin [Lipitor] 40 mg PO HS 10/09/19 10/19/23 History RX: amLODIPine [Norvasc] 10 mg PO DAILY #30 tab 11/09/22 10/19/23 Rx RX: Metoprolol Tartrate [Lopressor] 12.5 mg PO BID 09/16/23 10/19/23 History RX: Insulin Regular, Human See Protocol SQ ACHS 10/07/23 10/19/23 History [Novolin R] RX: Pantoprazole [Protonix] 40 mg PO DAILY 10/07/23 10/19/23 History cefUROXime axetiL [Ceftin] 500 mg PO BID 10 Days #20 tab 10/12/23 10/19/23 Rx metroNIDAZOLE [Flagyl] 500 mg PO TID #30 tab 10/12/23 10/19/23 Rx Clopidogrel [Plavix] 75 mg PO DAILY 10/19/23 10/19/23 History Levothyroxine Sodium [Synthroid] 112 mcg PO DAILY 10/19/23 10/19/23 History Loperamide HCl [Loperamide] 2 - 4 mg PO TID PRN 10/19/23 10/19/23 History Memantine HCl [Namenda] 5 mg PO BID 10/19/23 10/19/23 History Allergies Allergy/AdvReac Type Severity Reaction Status Date / Time No Known Allergies Allergy Verified 10/19/23 12:42 Physical Exam Vitals: Vital Signs Temp Pulse Pulse Pulse Resp BP BP 10/20/23 12:33 98.2 F 108 H 15 102/49 10/20/23 12:00 25 H 10/20/23 11:12 10/20/23 11:00 116 H 25 H 10/20/23 10:45 114 H 22 10/20/23 10:30 111 H 26 H 10/20/23 10:15 107 H 25 H 10/20/23 10:00 106 H 25 H 10/20/23 09:45 106 H 26 H 134/67 10/20/23 09:30 107 H 26 H 122/67 10/20/23 09:15 107 H 26 H 122/67 10/20/23 09:00 109 H 28 H 125/71 10/20/23 08:45 108 H 36 H 125/71 10/20/23 08:30 108 H 27 H 119/71 10/20/23 08:15 106 H 29 H 119/71 10/20/23 08:00 98.6 F 107 H 27 H 114/72 10/20/23 07:45 106 H 27 H 114/72 10/20/23 07:30 107 H 28 H 128/67 10/20/23 07:28 10/20/23 07:15 106 H 26 H 128/67 10/20/23 07:00 106 H 24 10/20/23 06:45 106 H 27 H 117/65 10/20/23 06:30 106 H 24 10/20/23 06:15 105 H 22 119/69 10/20/23 06:00 105 H 20 10/20/23 05:45 105 H 22 121/67 10/20/23 05:30 104 H 20 10/20/23 05:15 103 H 23 123/65 10/20/23 05:00 102 H 20 10/20/23 04:45 101 H 20 125/63 10/20/23 04:32 10/20/23 04:30 101 H 20 10/20/23 04:17 10/20/23 04:15 100 20 130/63 10/20/23 04:00 97.7 F 100 20 10/20/23 03:45 101 H 22 122/67 10/20/23 03:30 98 26 H 10/20/23 03:15 98 25 H 126/62 10/20/23 03:00 97 26 H 10/20/23 02:45 96 25 H 131/66 10/20/23 02:30 93 19 10/20/23 02:15 92 26 H 113/63 10/20/23 02:00 96.3 F L 90 21 120/66 10/20/23 01:45 89 23 10/20/23 01:30 88 26 H 10/20/23 01:15 87 26 H 10/20/23 01:00 95.2 F L 86 20 10/20/23 00:45 84 26 H 10/20/23 00:39 83 26 H 10/20/23 00:30 84 21 10/20/23 00:27 10/20/23 00:15 82 22 10/20/23 00:11 95 F L 81 20 112/42 10/20/23 00:00 96 F L 82 23 10/19/23 23:45 81 22 10/19/23 23:30 81 20 10/19/23 23:22 95 F L 81 20 126/44 10/19/23 23:15 83 23 10/19/23 23:02 96.3 F L 83 20 119/41 10/19/23 23:00 82 22 102/57 10/19/23 22:55 96.5 F L 81 20 110/39 10/19/23 22:45 80 20 10/19/23 22:30 80 21 10/19/23 22:29 10/19/23 22:15 81 20 10/19/23 22:00 82 21 127/63 10/19/23 21:45 96.5 F L 81 21 10/19/23 21:25 10/19/23 21:07 96.5 F L 82 20 110/39 10/19/23 14:20 97 F L 86 25 H 134/63 10/19/23 14:00 88 26 H 152/71 10/19/23 13:00 81 29 H 97/59 10/19/23 12:59 82 32 H 135/68 Pulse Ox FiO2 10/20/23 12:33 99 50 10/20/23 12:00 95 50 10/20/23 11:12 50 10/20/23 11:00 95 10/20/23 10:45 96 10/20/23 10:30 96 10/20/23 10:15 97 10/20/23 10:00 99 10/20/23 09:45 99 10/20/23 09:30 98 10/20/23 09:15 98 10/20/23 09:00 98 10/20/23 08:45 98 10/20/23 08:30 99 10/20/23 08:15 98 10/20/23 08:00 98 50 10/20/23 07:45 98 10/20/23 07:30 98 10/20/23 07:28 50 10/20/23 07:15 98 10/20/23 07:00 99 10/20/23 06:45 99 10/20/23 06:30 98 10/20/23 06:15 98 10/20/23 06:00 99 10/20/23 05:45 98 10/20/23 05:30 98 10/20/23 05:15 98 10/20/23 05:00 98 10/20/23 04:45 98 10/20/23 04:32 50 10/20/23 04:30 99 10/20/23 04:17 50 10/20/23 04:15 99 10/20/23 04:00 99 100 10/20/23 03:45 99 10/20/23 03:30 99 10/20/23 03:15 99 10/20/23 03:00 100 10/20/23 02:45 99 10/20/23 02:30 100 10/20/23 02:15 100 10/20/23 02:00 99 10/20/23 01:45 99 10/20/23 01:30 100 10/20/23 01:15 100 10/20/23 01:00 100 10/20/23 00:45 100 10/20/23 00:39 100 10/20/23 00:30 100 10/20/23 00:27 50 10/20/23 00:15 100 10/20/23 00:11 10/20/23 00:00 100 50 10/19/23 23:45 100 10/19/23 23:30 100 10/19/23 23:22 10/19/23 23:15 100 10/19/23 23:02 10/19/23 23:00 100 50 10/19/23 22:55 100 10/19/23 22:45 100 10/19/23 22:30 100 10/19/23 22:29 50 10/19/23 22:15 100 10/19/23 22:00 100 100 10/19/23 21:45 100 100 10/19/23 21:25 100 10/19/23 21:07 10/19/23 14:20 100 10/19/23 14:00 100 10/19/23 13:00 100 10/19/23 12:59 100 Intake and Output 10/19/23 10/20/23 10/20/23 22:59 06:59 14:59 Intake Total 2462 1057.724 9376.152 Output Total 410 0 1700 Balance 2052 1070.907 -333.848 Intake: IV 2152 450 250 Dextrose 5% in Water 1, 50 450 250 000 ml @ 50 mls/hr IV . Q23H JOL[facility]NN with Sodium Bicarb (1 Meq/ml) 150 ml Rx#:[id number] Intake, IV Titration 310.907 216.152 Amount Heparin Sod,Pork in 0.45% 108.667 NaCl 25,000 unit In 0.45 % NaCl 1 250ml.bag @ 10. 254 UNITS/KG/HR 10 mls/hr IV .Q24H JOLYNN Rx#: [id number] Norepinephrine 4 mg In 6.131 Sodium Chloride 0.9% 250 ml @ 0.03 MCG/KG/MIN 11. 147 mls/hr IV .[id number] JOLYNN Rx#:[id number] Norepinephrine 4 mg In 5.945 Sodium Chloride 0.9% 250 ml @ 0.03 MCG/KG/MIN 11. 147 mls/hr IV .[id number] [facility] Rx#:[id number] Norepinephrine 8 mg In 104.165 153.835 Sodium Chloride 0.9% 250 ml @ 0.03 MCG/KG/MIN 5. 661 mls/hr IV .Q24H [facility] Rx#:[id number] Sodium Chloride 0.9% 80 10.808 ml @ 0.5 MCG/KG/HR 4.876 mls/hr IV .[id number] JOLYNN with fentaNYL (PF) 1,000 mcg Rx#:[id number] propofoL 1,000 mg In 75.191 62.317 Empty Bag 1 bag @ 15 MCG/ KG/MIN 8.777 mls/hr IV . [id number] [facility] Rx#:[id number] Blood Product 310 310 Rc As-1 Unit 310 [id number] Rc As-1 Unit 0 310 [id number] Hemodialysis 900 Output: Urine 10 0 0 Hemodialysis 1700 Estimated Blood Loss 400 Other: Voiding Method Indwelling Catheter Indwelling Catheter Indwelling Catheter Weight 113.4 kg 113.4 kg ABP, PAP, CO, CI - Last 8 Hours Arterial Blood Pressure 87/46 Arterial Blood Pressure 96/46 Arterial Blood Pressure 106/47 Arterial Blood Pressure 105/44 Arterial Blood Pressure 120/43 Arterial Blood Pressure 122/42 Arterial Blood Pressure 120/42 Arterial Blood Pressure 121/41 Arterial Blood Pressure 112/43 Arterial Blood Pressure 110/42 Arterial Blood Pressure 111/43 Arterial Blood Pressure 99/40 Arterial Blood Pressure 110/43 Arterial Blood Pressure 107/41 Arterial Blood Pressure 101/40 Arterial Blood Pressure 109/42 Arterial Blood Pressure 112/42 Arterial Blood Pressure 112/42 Arterial Blood Pressure 106/42 Arterial Blood Pressure 112/40 Arterial Blood Pressure 118/41 Arterial Blood Pressure 116/42 Arterial Blood Pressure 102/40 Arterial Blood Pressure 100/39 Arterial Blood Pressure 106/40 No acute distress S1-S2 heard Decreased breath sounds Abdomen soft Lower extremity edema with surgical scars Results - Lab Results Most recent lab results ABG pH 7.34 (7.35-7.45) L 10/19/23 19:25 ABG pCO2 30 mmHg (35-45) L 10/19/23 19:25 ABG pO2 383 mmHg (83-108) H 10/19/23 19:25 ABG HCO3 16 mmol/L (21-25) L 10/19/23 19:25 ABG O2 Saturation 100.0 % (94-97) H 10/19/23 19:25 Calcium 5.5 mg/dL (8.4-10.2) L* 10/20/23 04:55 Magnesium 1.9 mg/dL (1.6-2.3) 10/19/23 19:25 10/20/23 04:55 10/20/23 04:55 Assessment and Plan Assessment: #1 acute kidney injury multifactorial ATN. -Hypotension/rhabdomyolysis -Baseline creatinine 0.8 MG per DL #2 shock on pressors. #3 rhabdomyolysis status post fasciotomy #4 hyperkalemia secondary to acute kidney injury #5 metabolic acidosis secondary to acute kidney injury #6 ventilator dependent respiratory failure Plan: #1 hemodialysis today for solute clearance, hyperkalemia and acidosis. #2 plan again tomorrow #3 monitor for renal recovery #4 ween off pressors and ventilator
--- NOTE | 2023-10-20 13:57 | P.CNPUL ---
History of Present Illness Consult date: 10/20/23 Requesting physician: Evaristo Brady Reason for consult: other (Sepsis, rhabdomyolysis, compartment syndrome of lower extremities and acute bilateral limp ischemia, status post revascularization) Chief complaint: Unable to walk History of present illness: This is a 72-year-old white male with history of multiple medical problems including coronary artery disease, previous NC, history of congestive heart failure, type 2 diabetes, dyslipidemia, hypertension, and history of CVA. [facility] to the ER around 11 AM, apparently the patient was found down and unable to walk. Upon his initial evaluation in the ER, patient was noted to have mottled legs bilaterally and unable to move. Patient basically woke up from sleep and noticed that his legs could not move, and he felt legs were numb. Recently the patient was diagnosed and treated for COVID-19 infection on the and of the month. And he was in the hospital at the time. Patient was seen by vascular surgery while in the ER, and he was diagnosed as having acute bilateral critical limb ischemia embolic versus thrombotic, and he was also noted to have bilateral popliteal artery occlusions. Patient was also noted to have significant leukocytosis and lactic acidosis. On emergent basis, patient was taken to or, underwent open thrombectomy of tibial artery angiogram with a retrograde femoral angiogram , open right common femoral artery down, right superficial femoral artery balloon angioplasty bilateral 4 compartment fasciotomy hemodialysis catheter placement patient had a very long surgery, he was transferred to the ICU after his surgery on mechanical ventilation. And he remains on mechanical ventilation overnight. Patient is now on assist control rate of 24*volume 400 FiO2 50% and PEEP of 5. Most recent ABG showed a pO2 of 383, pCO2 of 30 pH of 7.34. Next ABG is pending and this will be done after his next hemodialysis which is about to start right after my evaluation. Patient is requiring norepinephrine at 0.3 mcg/kg/m, he is also on a bicarb drip at 50 mL per hour propofol at 30 mcg/kg/m. Patient is also on heparin drip as recommended by vascular surgery. Patient has a dialysis catheter in his left groin he has a wound VAC in the right groin he had a left radial arterial line which I removed because his fingers were noted to be mottled and cyanotic. Hence it was moved to the right brachial region and a radial line was discontinued. Both of his lower extremities are wrapped, patient had bilateral fasciotomy. Chest x-ray just morning showed mostly nonspecific bibasilar opacities, however his endotracheal tube seems to be sitting high in the trachea and needs to be advanced to cecum and today's 22.8 hemoglobin is 10.9 sodium is 146 potassium 6 bicarb is 14 anion gap is 19 BUN is 51 creatinine 5.96. Patient was seen by nephrology on consultation and felt that the patient had acute kidney injury with hypotension and rhabdomyolysis/acute tubular necrosis and hemodialysis was started this morning. Patient already has a hemodialysis catheter placed yesterday by vascular surgery. Review of Systems ROS unobtainable: due to endotracheal tube Past Medical History Past Medical History: Coronary Artery Disease (CAD), Heart Failure, Diabetes Mellitus, Hyperlipidemia, Hypertension, Myocardial Infarction (NC), Syncope, Thyroid Disorder Additional Past Medical History / Comment(s): CT of the brain in September 2017 demonstrated old right lacunar infarct Last Myocardial Infarction Date:: 12/06/2018 History of Any Multi-Drug Resistant Organisms: None Reported Past Surgical History: Coronary Bypass/CABG, Orthopedic Surgery Additional Past Surgical History / Comment(s): right hip Past Anesthesia/Blood Transfusion Reactions: No Reported Reaction Past Psychological History: Bipolar, PTSD Smoking Status: Never smoker Past Alcohol Use History: None Reported Past Drug Use History: None Reported - Past Family History Father Family Medical History: No Reported History Mother History Unknown: Yes Family Medical History: No Reported History Medications and Allergies Home Medications Medication Instructions Recorded Confirmed Type metFORMIN HCL 500 mg PO TID 02/06/19 10/19/23 History Atorvastatin [Lipitor] 40 mg PO HS 10/09/19 10/19/23 History amLODIPine [Norvasc] 10 mg PO DAILY #30 tab 11/09/22 10/19/23 Rx Metoprolol Tartrate [Lopressor] 12.5 mg PO BID 09/16/23 10/19/23 History Insulin Regular, Human [Novolin R] See Protocol SQ ACHS 10/07/23 10/19/23 History Pantoprazole [Protonix] 40 mg PO DAILY 10/07/23 10/19/23 History cefUROXime axetiL [Ceftin] 500 mg PO BID 10 Days #20 tab 10/12/23 10/19/23 Rx metroNIDAZOLE [Flagyl] 500 mg PO TID #30 tab 10/12/23 10/19/23 Rx Clopidogrel [Plavix] 75 mg PO DAILY 10/19/23 10/19/23 History Levothyroxine Sodium [Synthroid] 112 mcg PO DAILY 10/19/23 10/19/23 History Loperamide HCl [Loperamide] 2 - 4 mg PO TID PRN 10/19/23 10/19/23 History Memantine HCl [Namenda] 5 mg PO BID 10/19/23 10/19/23 History Allergies Allergy/AdvReac Type Severity Reaction Status Date / Time No Known Allergies Allergy Verified 10/19/23 12:42 Physical Exam Vitals: Vital Signs Temp Pulse Pulse Pulse Resp BP BP 10/20/23 12:45 109 H 25 H 10/20/23 12:33 98.2 F 108 H 15 102/49 10/20/23 12:30 108 H 25 H 10/20/23 12:15 109 H 26 H 10/20/23 12:00 111 H 26 H 10/20/23 11:45 116 H 32 H 10/20/23 11:30 117 H 26 H 10/20/23 11:15 116 H 23 10/20/23 11:12 10/20/23 11:00 116 H 25 H 10/20/23 10:45 114 H 22 10/20/23 10:30 111 H 26 H 10/20/23 10:15 107 H 25 H 10/20/23 10:00 106 H 25 H 10/20/23 09:45 106 H 26 H 134/67 10/20/23 09:30 107 H 26 H 122/67 10/20/23 09:15 107 H 26 H 122/67 10/20/23 09:00 109 H 28 H 125/71 10/20/23 08:45 108 H 36 H 125/71 10/20/23 08:30 108 H 27 H 119/71 10/20/23 08:15 106 H 29 H 119/71 10/20/23 08:00 98.6 F 107 H 27 H 114/72 10/20/23 07:45 106 H 27 H 114/72 10/20/23 07:30 107 H 28 H 128/67 10/20/23 07:28 10/20/23 07:15 106 H 26 H 128/67 10/20/23 07:00 106 H 24 10/20/23 06:45 106 H 27 H 117/65 10/20/23 06:30 106 H 24 10/20/23 06:15 105 H 22 119/69 10/20/23 06:00 105 H 20 10/20/23 05:45 105 H 22 121/67 10/20/23 05:30 104 H 20 10/20/23 05:15 103 H 23 123/65 10/20/23 05:00 102 H 20 10/20/23 04:45 101 H 20 125/63 10/20/23 04:32 10/20/23 04:30 101 H 20 10/20/23 04:17 10/20/23 04:15 100 20 130/63 10/20/23 04:00 97.7 F 100 20 10/20/23 03:45 101 H 22 122/67 10/20/23 03:30 98 26 H 10/20/23 03:15 98 25 H 126/62 10/20/23 03:00 97 26 H 10/20/23 02:45 96 25 H 131/66 10/20/23 02:30 93 19 10/20/23 02:15 92 26 H 113/63 10/20/23 02:00 96.3 F L 90 21 120/66 10/20/23 01:45 89 23 10/20/23 01:30 88 26 H 10/20/23 01:15 87 26 H 10/20/23 01:00 95.2 F L 86 20 10/20/23 00:45 84 26 H 10/20/23 00:39 83 26 H 10/20/23 00:30 84 21 10/20/23 00:27 10/20/23 00:15 82 22 10/20/23 00:11 95 F L 81 20 112/42 10/20/23 00:00 96 F L 82 23 10/19/23 23:45 81 22 10/19/23 23:30 81 20 10/19/23 23:22 95 F L 81 20 126/44 10/19/23 23:15 83 23 10/19/23 23:02 96.3 F L 83 20 119/41 10/19/23 23:00 82 22 102/57 10/19/23 22:55 96.5 F L 81 20 110/39 10/19/23 22:45 80 20 10/19/23 22:30 80 21 10/19/23 22:29 10/19/23 22:15 81 20 10/19/23 22:00 82 21 127/63 10/19/23 21:45 96.5 F L 81 21 10/19/23 21:25 10/19/23 21:07 96.5 F L 82 20 110/39 10/19/23 14:20 97 F L 86 25 H 134/63 10/19/23 14:00 88 26 H 152/71 Pulse Ox FiO2 10/20/23 12:45 99 10/20/23 12:33 99 50 10/20/23 12:30 99 10/20/23 12:15 98 10/20/23 12:00 97 50 10/20/23 11:45 93 L 10/20/23 11:30 95 10/20/23 11:15 95 10/20/23 11:12 50 10/20/23 11:00 95 10/20/23 10:45 96 10/20/23 10:30 96 10/20/23 10:15 97 10/20/23 10:00 99 10/20/23 09:45 99 10/20/23 09:30 98 10/20/23 09:15 98 10/20/23 09:00 98 10/20/23 08:45 98 10/20/23 08:30 99 10/20/23 08:15 98 10/20/23 08:00 98 50 10/20/23 07:45 98 10/20/23 07:30 98 10/20/23 07:28 50 10/20/23 07:15 98 10/20/23 07:00 99 10/20/23 06:45 99 10/20/23 06:30 98 10/20/23 06:15 98 10/20/23 06:00 99 10/20/23 05:45 98 10/20/23 05:30 98 10/20/23 05:15 98 10/20/23 05:00 98 10/20/23 04:45 98 10/20/23 04:32 50 10/20/23 04:30 99 10/20/23 04:17 50 10/20/23 04:15 99 10/20/23 04:00 99 100 10/20/23 03:45 99 10/20/23 03:30 99 10/20/23 03:15 99 10/20/23 03:00 100 10/20/23 02:45 99 10/20/23 02:30 100 10/20/23 02:15 100 10/20/23 02:00 99 10/20/23 01:45 99 10/20/23 01:30 100 10/20/23 01:15 100 10/20/23 01:00 100 10/20/23 00:45 100 10/20/23 00:39 100 10/20/23 00:30 100 10/20/23 00:27 50 10/20/23 00:15 100 10/20/23 00:11 10/20/23 00:00 100 50 10/19/23 23:45 100 10/19/23 23:30 100 10/19/23 23:22 10/19/23 23:15 100 10/19/23 23:02 10/19/23 23:00 100 50 10/19/23 22:55 100 10/19/23 22:45 100 10/19/23 22:30 100 10/19/23 22:29 50 10/19/23 22:15 100 10/19/23 22:00 100 100 10/19/23 21:45 100 100 10/19/23 21:25 100 10/19/23 21:07 10/19/23 14:20 100 10/19/23 14:00 100 Intake and Output 10/19/23 10/20/23 10/20/23 22:59 06:59 14:59 Intake Total 2462 8997.144 7928.883 Output Total 410 0 1740 Balance 2052 1070.907 -217.117 Intake: IV 2152 450 250 Dextrose 5% in Water 1, 50 450 250 000 ml @ 50 mls/hr IV . Q23H [facility] with Sodium Bicarb (1 Meq/ml) 150 ml Rx#:[id number] Intake, IV Titration 310.907 332.883 Amount Heparin Sod,Pork in 0.45% 108.667 NaCl 25,000 unit In 0.45 % NaCl 1 250ml.bag @ 10. 254 UNITS/KG/HR 10 mls/hr IV .Q24H [facility] Rx#: [id number] Norepinephrine 4 mg In 6.131 Sodium Chloride 0.9% 250 ml @ 0.03 MCG/KG/MIN 11. 147 mls/hr IV .[id number] [facility] Rx#:[id number] Norepinephrine 4 mg In 5.945 Sodium Chloride 0.9% 250 ml @ 0.03 MCG/KG/MIN 11. 147 mls/hr IV .[id number] [facility] Rx#:[id number] Norepinephrine 8 mg In 104.165 164.082 Sodium Chloride 0.9% 250 ml @ 0.03 MCG/KG/MIN 5. 661 mls/hr IV .Q24H [facility] Rx#:[id number] Sodium Chloride 0.9% 100 100 ml @ 0 mls/hr IV .STK-MED ONE with ceFAZolin 2,000 mg Rx#:[id number] Sodium Chloride 0.9% 80 10.808 ml @ 0.5 MCG/KG/HR 4.876 mls/hr IV .[id number] [facility] with fentaNYL (PF) 1,000 mcg Rx#:[id number] propofoL 1,000 mg In 75.191 68.801 Empty Bag 1 bag @ 15 MCG/ KG/MIN 8.777 mls/hr IV . [id number] [facility] Rx#:[id number] Tube Feeding 10 Blood Product 310 310 As-1 Unit 310 [id number] As-1 Unit 0 310 [id number] Hemodialysis 900 Other 30 Output: Urine 10 0 40 Hemodialysis 1700 Estimated Blood Loss 400 Other: Voiding Method Indwelling Catheter Indwelling Catheter Indwelling Catheter Weight 113.4 kg 113.4 kg ABP, PAP, CO, CI - Last 8 Hours Arterial Blood Pressure 131/54 Arterial Blood Pressure 130/54 Arterial Blood Pressure 132/54 Arterial Blood Pressure 124/54 Arterial Blood Pressure 101/54 Arterial Blood Pressure 90/52 Arterial Blood Pressure 87/55 Arterial Blood Pressure 87/46 Arterial Blood Pressure 96/46 Arterial Blood Pressure 106/47 Arterial Blood Pressure 105/44 Arterial Blood Pressure 120/43 Arterial Blood Pressure 122/42 Arterial Blood Pressure 120/42 Arterial Blood Pressure 121/41 Arterial Blood Pressure 112/43 Arterial Blood Pressure 110/42 Arterial Blood Pressure 111/43 Arterial Blood Pressure 99/40 Arterial Blood Pressure 110/43 Arterial Blood Pressure 107/41 Arterial Blood Pressure 101/40 Arterial Blood Pressure 109/42 Arterial Blood Pressure 112/42 Arterial Blood Pressure 112/42 Arterial Blood Pressure 106/42 Arterial Blood Pressure 112/40 Arterial Blood Pressure 118/41 Arterial Blood Pressure 116/42 Arterial Blood Pressure 102/40 Physical Exam: Revealed 72-year-old white male intubated mechanically ventilated, sedated, on propofol, received fentanyl last night but was discontinued this morning. Head: Atraumatic, normocephalic. Endotracheal tube and orogastric tube are intact HEENT:[Neck is supple.] [No neck masses.] [No thyromegaly.] [No JVD.] Chest: [Course of breath sound bilaterally, symmetrical chest expansion. Cardiac Exam: [Normal S1 and S2, no S3 gallop, no murmur.] Abdomen: [Soft, nontender, no megaly, no rebound, no guarding, normal bowel sounds.] Extremities: Both lower extremities are wrapped, and according to the vascular surgeon patient has significant improvement already in her mottling evidence of ischemia noted to toes, and the patient had bluish discoloration of the tips of the fingers on the left hand hence the arterial line from the left radial artery was removed. Patient has a dialysis catheter in the left groin and a wound VAC in the right groin. Neurological Exam: Could not assess patient is sedated on propofol. Results - Laboratory Findings CBC and BMP: 10/20/23 04:55 10/20/23 04:55 ABG ABG pH 7.34 (7.35-7.45) L 10/19/23 19:25 ABG pCO2 30 mmHg (35-45) L 10/19/23 19:25 ABG pO2 383 mmHg (83-108) H 10/19/23 19:25 ABG O2 Saturation 100.0 % (94-97) H 10/19/23 19:25 PT/INR, D-dimer PT 12.4 sec (10.0-12.5) 10/19/23 12:22 INR 1.2 (<1.2) H 10/19/23 12:22 Abnormal lab findings: Abnormal Labs 10/19/23 10/19/23 10/19/23 11:41 11:41 11:41 WBC 18.0 H RBC 3.98 L Hgb 11.2 L Hct 35.7 L Neutrophils # 16.3 H Lymphocytes # 0.8 L INR APTT ABG pH ABG pCO2 ABG pO2 ABG HCO3 ABG O2 Saturation Sodium Potassium Chloride Carbon Dioxide BUN Creatinine Glucose POC Glucose (mg/dL) Hemoglobin A1c Plasma Lactic Acid Lior Calcium Ionized Calcium Rich AST ALT Creatine Kinase Troponin I C-Reactive Protein Total Protein Albumin Procalcitonin Urine Protein 2+ H Urine Ketones Trace H Urine Blood Moderate H Urine WBC 12 H Urine WBC Clumps Few H Urine Bacteria Rare H Hyaline Casts 80 H Urine Mucus Many H SARS-CoV-2 (PCR) Detected A Crossmatch 10/19/23 10/19/23 10/19/23 11:41 11:41 11:41 WBC RBC Hgb Hct Neutrophils # Lymphocytes # INR APTT ABG pH ABG pCO2 ABG pO2 ABG HCO3 ABG O2 Saturation Sodium 147 H Potassium 5.4 H Chloride 110 H Carbon Dioxide 7 L* BUN 53 H Creatinine 7.47 H* Glucose POC Glucose (mg/dL) Hemoglobin A1c Plasma Lactic Acid Lior 10.5 H* Calcium 7.9 L Ionized Calcium Rich AST 243 H ALT 78 H Creatine Kinase Troponin I 0.055 H* C-Reactive Protein Total Protein Albumin 3.2 L Procalcitonin Urine Protein Urine Ketones Urine Blood Urine WBC Urine WBC Clumps Urine Bacteria Hyaline Casts Urine Mucus SARS-CoV-2 (PCR) Crossmatch 10/19/23 10/19/23 10/19/23 11:41 11:41 11:42 WBC RBC Hgb Hct Neutrophils # Lymphocytes # INR APTT ABG pH ABG pCO2 ABG pO2 ABG HCO3 ABG O2 Saturation Sodium Potassium Chloride Carbon Dioxide BUN Creatinine Glucose POC Glucose (mg/dL) Hemoglobin A1c 9.3 H Plasma Lactic Acid Lior Calcium Ionized Calcium Rich AST ALT Creatine Kinase Troponin I C-Reactive Protein 7.3 H Total Protein Albumin Procalcitonin 57.50 H Urine Protein Urine Ketones Urine Blood Urine WBC Urine WBC Clumps Urine Bacteria Hyaline Casts Urine Mucus SARS-CoV-2 (PCR) Crossmatch 10/19/23 10/19/23 10/19/23 12:22 12:22 13:36 WBC RBC Hgb Hct Neutrophils # Lymphocytes # INR 1.2 H APTT 21.1 L ABG pH ABG pCO2 ABG pO2 ABG HCO3 ABG O2 Saturation Sodium Potassium Chloride Carbon Dioxide BUN Creatinine Glucose POC Glucose (mg/dL) 119 H Hemoglobin A1c Plasma Lactic Acid Lior Calcium Ionized Calcium Rich AST ALT Creatine Kinase 8909 H* Troponin I C-Reactive Protein Total Protein Albumin Procalcitonin Urine Protein Urine Ketones Urine Blood Urine WBC Urine WBC Clumps Urine Bacteria Hyaline Casts Urine Mucus SARS-CoV-2 (PCR) Crossmatch 10/19/23 10/19/23 10/19/23 14:45 15:39 17:12 WBC RBC Hgb Hct Neutrophils # Lymphocytes # INR APTT ABG pH 7.18 L* ABG pCO2 ABG pO2 396 H ABG HCO3 13 L ABG O2 Saturation 99.7 H Sodium Potassium Chloride Carbon Dioxide BUN Creatinine Glucose POC Glucose (mg/dL) 44 L Hemoglobin A1c Plasma Lactic Acid Lior Calcium Ionized Calcium Rich AST ALT Creatine Kinase Troponin I C-Reactive Protein Total Protein Albumin Procalcitonin Urine Protein Urine Ketones Urine Blood Urine WBC Urine WBC Clumps Urine Bacteria Hyaline Casts Urine Mucus SARS-CoV-2 (PCR) Crossmatch See Detail 10/19/23 10/19/23 10/19/23 17:38 17:48 18:31 WBC RBC Hgb Hct Neutrophils # Lymphocytes # INR APTT ABG pH 7.26 L ABG pCO2 26 L ABG pO2 365 H ABG HCO3 12 L ABG O2 Saturation 99.7 H Sodium Potassium Chloride Carbon Dioxide BUN Creatinine Glucose POC Glucose (mg/dL) 149 H 111 H Hemoglobin A1c Plasma Lactic Acid Lior Calcium Ionized Calcium Rich AST ALT Creatine Kinase Troponin I C-Reactive Protein Total Protein Albumin Procalcitonin Urine Protein Urine Ketones Urine Blood Urine WBC Urine WBC Clumps Urine Bacteria Hyaline Casts Urine Mucus SARS-CoV-2 (PCR) Crossmatch 10/19/23 10/19/23 10/19/23 19:25 19:25 19:25 WBC 14.2 H RBC 2.64 L Hgb 7.5 L D Hct 22.7 L Neutrophils # 12.6 H Lymphocytes # INR APTT ABG pH ABG pCO2 ABG pO2 ABG HCO3 ABG O2 Saturation Sodium 148 H Potassium Chloride 116 H Carbon Dioxide 11 L BUN 51 H Creatinine 5.69 H Glucose POC Glucose (mg/dL) Hemoglobin A1c Plasma Lactic Acid Lior Calcium 6.1 L* Ionized Calcium Rich AST ALT Creatine Kinase Troponin I 0.048 H* C-Reactive Protein Total Protein Albumin Procalcitonin Urine Protein Urine Ketones Urine Blood Urine WBC Urine WBC Clumps Urine Bacteria Hyaline Casts Urine Mucus SARS-CoV-2 (PCR) Crossmatch 10/19/23 10/19/23 10/19/23 19:25 20:00 20:50 WBC RBC Hgb Hct Neutrophils # Lymphocytes # INR APTT >200.0 H* ABG pH 7.34 L ABG pCO2 30 L ABG pO2 383 H ABG HCO3 16 L ABG O2 Saturation 100.0 H Sodium Potassium Chloride Carbon Dioxide BUN Creatinine Glucose POC Glucose (mg/dL) Hemoglobin A1c Plasma Lactic Acid Lior 5.5 H* Calcium Ionized Calcium Rich AST ALT Creatine Kinase Troponin I C-Reactive Protein Total Protein Albumin Procalcitonin Urine Protein Urine Ketones Urine Blood Urine WBC Urine WBC Clumps Urine Bacteria Hyaline Casts Urine Mucus SARS-CoV-2 (PCR) Crossmatch 10/19/23 10/19/23 10/19/23 21:30 21:54 23:53 WBC RBC Hgb Hct Neutrophils # Lymphocytes # INR APTT ABG pH ABG pCO2 ABG pO2 ABG HCO3 ABG O2 Saturation Sodium Potassium Chloride Carbon Dioxide BUN Creatinine Glucose POC Glucose (mg/dL) 42 L 153 H 155 H Hemoglobin A1c Plasma Lactic Acid Lior Calcium Ionized Calcium Rich AST ALT Creatine Kinase Troponin I C-Reactive Protein Total Protein Albumin Procalcitonin Urine Protein Urine Ketones Urine Blood Urine WBC Urine WBC Clumps Urine Bacteria Hyaline Casts Urine Mucus SARS-CoV-2 (PCR) Crossmatch 10/20/23 10/20/23 10/20/23 00:00 00:00 00:00 WBC RBC Hgb Hct Neutrophils # Lymphocytes # INR APTT 45.6 H ABG pH ABG pCO2 ABG pO2 ABG HCO3 ABG O2 Saturation Sodium Potassium Chloride Carbon Dioxide BUN Creatinine Glucose POC Glucose (mg/dL) Hemoglobin A1c Plasma Lactic Acid Lior 4.7 H* Calcium Ionized Calcium Rich AST ALT Creatine Kinase Troponin I 0.051 H* C-Reactive Protein Total Protein Albumin Procalcitonin Urine Protein Urine Ketones Urine Blood Urine WBC Urine WBC Clumps Urine Bacteria Hyaline Casts Urine Mucus SARS-CoV-2 (PCR) Crossmatch 10/20/23 10/20/23 10/20/23 04:55 04:55 04:55 WBC 22.8 H RBC 3.83 L Hgb 10.9 L D Hct 33.5 L Neutrophils # 21.2 H Lymphocytes # 0.7 L INR APTT 44.0 H ABG pH ABG pCO2 ABG pO2 ABG HCO3 ABG O2 Saturation Sodium 146 H Potassium 6.0 H Chloride 113 H Carbon Dioxide 14 L BUN 51 H Creatinine 5.96 H Glucose 111 H POC Glucose (mg/dL) Hemoglobin A1c Plasma Lactic Acid Lior Calcium 5.5 L* Ionized Calcium Rich AST 473 H ALT 88 H Creatine Kinase Troponin I C-Reactive Protein Total Protein 5.5 L Albumin 2.9 L Procalcitonin Urine Protein Urine Ketones Urine Blood Urine WBC Urine WBC Clumps Urine Bacteria Hyaline Casts Urine Mucus SARS-CoV-2 (PCR) Crossmatch 10/20/23 10/20/23 06:13 06:48 WBC RBC Hgb Hct Neutrophils # Lymphocytes # INR APTT ABG pH ABG pCO2 ABG pO2 ABG HCO3 ABG O2 Saturation Sodium Potassium Chloride Carbon Dioxide BUN Creatinine Glucose POC Glucose (mg/dL) 121 H Hemoglobin A1c Plasma Lactic Acid Lior Calcium Ionized Calcium Rich 3.3 L* AST ALT Creatine Kinase Troponin I C-Reactive Protein Total Protein Albumin Procalcitonin Urine Protein Urine Ketones Urine Blood Urine WBC Urine WBC Clumps Urine Bacteria Hyaline Casts Urine Mucus SARS-CoV-2 (PCR) Crossmatch - Diagnostic Findings Chest x-ray: image reviewed (As noted in HPI) Assessment and Plan Assessment: Impression: Acute hypoxic respiratory failure secondary to sepsis, septic shock, rhabdomyolysis, and compartment syndrome of lower extremities secondary to critical limb ischemia and thromboses Bilateral lower extremity critical limb ischemia.nhi class II Bilateral popliteal and tibial artery thrombosis Bilateral superficial femoral artery occlusions Acute rhabdomyolysis Acute renal failure/acute tubular necrosis Acute metabolic acidosis/I am Metabolic acidosis History of coronary artery disease, previous NC Type 2 diabetes Bilateral lower extremity cellulitis Acute sepsis and septic shock most likely source would be his cellulitis History of recent colitis Bilateral groin candidiasis Status post:Open thrombectomy of bilateral popliteal, superficial femoral, and tibial arteries Selective bilateral tibial artery angiogram with retrograde femoral angiogram Open right common femoral artery cutdown Right femoral artery access with 6F sheath Left lower extremity angiogram Left superficial femoral artery balloon angioplasty Left transluminal stenting of the superficial femoral artery Selective right lower extremity angiogram Right superficial femoral artery balloon angioplasty Right transluminal stenting of the superficial femoral artery Bilateral 4 compartment fasciotomy Ultrasound-guided left common femoral vein temporary hemodialysis catheter place ment Recommendation: Continue ventilatory support Adjust ventilator settings based on the next ABG Continue bicarb drip Continue hemodynamic support Address nutritional support/enteral feeding Continue hemodialysis as felt necessary by nephrology on the case Continue antibiotics, patient received vancomycin initially and he is now on cefepime, cultures are pending check blood cultures Continue to monitor daily labs and address abnormal labs accordingly Continue GI and DVT prophylaxis Continue to follow with multiple consultants on the case including vascular surgery, nephrology, infectious disease Critical care time is over 55 min Overall prognosis remains extremely poor and guarded Time with Patient: Greater than 30
[2023-10-20 14:32] LABS: ABG HCO3 21 mmol/L (21-25); ABG Oxygen Saturation 94.5 % (94-97); ABG PCO2 37 mmHg (35-45); ABG PH 7.36 (7.35-7.45); ABG PO2 73 mmHg (83-108); ABG TCO2 22 mmol/L (19-24)
[2023-10-20 14:35] LABS: Allen Test Performed? no
--- NOTE | 2023-10-20 14:44 | P.PN ---
Subjective Progress Note Date: 10/20/23 patient is 72-year-old gentleman who is currently in halfway has a past medical history of Coronary Artery Disease status post CABG , Heart Failure, Diabetes Mellitus, Hyperlipidemia, Hypertension, Syncope, thyroid disease, CT of the brain in September 2017 demonstrated old right lacunar infarct, Bipolar, PTSD was brought to the ER for generalized weakness. Patient is a poor historian. Most of the history has been taken from electronic medical records and from the patient, patient stated that he was complaining of weakness this morning after waking up from sleep. Patient stated that his legs were heavy on him and was unable to lift them off. Denied any pain in lower extremities. Denied any fever or chills. There was no complain of nausea, vomiting abdominal pain. [facility] staff checked on the patient and found his blood sugars to be low and he was given some dextrose which improved his blood sugars. Patient was recently in the hospital at which time he was diagnosed with COVID-19 infection and was also found to have colitis. Patient was brought to the ER Initial lab work done in the ER showed WBC 18, hemoglobin, platelet count 357, sodium 147, potassium 5.4, BUN 53, creatinine 7.47 , lactate 10.5, calcium 7.9, AST 243, ALT 78, [id number], troponin 0.055 Chest x-ray done in the ER showed low lung volumes, no acute cardiac process, COPD change In the ER, patient was found to have cold bilateral lower extremities, there was no pulses in lower extremities and there was mottling of the skin. Stat vascular surgery consult was requested and vascular surgery evaluated the patient recommended starting patient on heparin and initiating surgical intervention for acute bilateral lower extremity ischemia. Patient will be admitted to ICU 10/20. Patient seen and examined. Status post Open thrombectomy of bilateral popliteal, superficial femoral, and tibial arteries. Currently intubated and sedated. Patient is being started on nutrition by tube feeding. Currently on IV fentanyl, propofol and Levophed REVIEW OF SYSTEMS: Currently intubated and sedated PHYSICAL EXAMINATION: GENERAL: The patient is intubated and sedated, chronically ill-looking HEENT: Pupils are round and equally reacting to light. EOMI. No scleral icterus. No conjunctival pallor. Normocephalic, atraumatic. No pharyngeal erythema. No thyromegaly. CARDIOVASCULAR: S1 and S2 present. No murmurs, rubs, or gallops. PULMONARY: Diminished breath sounds at the bases bilaterally, no wheezing or crackles. ABDOMEN: Soft, nontender, nondistended, normoactive bowel sounds. No palpable organomegaly. MUSCULOSKELETAL: Bilateral lower extremity bandage seen at site of fasciotomies EXTREMITIES: No cyanosis, legs are warm NEUROLOGICAL: Intubated and sedated SKIN: No rashes. Assessment and plan Bilateral lower extremity critical limb ischemia.nhi class II Severe Sepsis Bilateral popliteal and tibial artery thrombosis Bilateral superficial femoral artery occlusions Acute hypoxic respiratory failure Lactic acidosis Acute kidney injury Rhabdomyolysis Hyperkalemia Hypoglycemia Rhabdomyolysis Elevated troponin COVID-19 infection Diabetes mellitus, with hyperglycemia Hypothyroidism Hypertension Hyperlipidemia History of osteoarthritis Hypothyroidism History of coronary artery disease status post CABG Monitor vital signs Monitor CBC Monitor CMP Continue telemetry monitoring Status post Open thrombectomy of bilateral popliteal, superficial femoral, and tibial arteries with stenting of left and right superficial femoral artery and Bilateral 4 compartment fasciotomy Follow-up on blood cultures Continue vent management per ICU Continue fentanyl and propofol. Currently on Levophed Continue bicarb drip continue pharmacy dose heparin Continue IV cefepime Vascular surgery following Critical care following ID following Nephrology is following Labs and medication were reviewed.. Continue same treatment. Continue with symptomatic treatment. Resume home medication. Monitor labs and vitals. DVT and GI prophylaxis. Further recommendations as per clinical course of the pat ient Dictation was produced using [employer] dictation software. please excuse any grammatical, word or spelling errors. Objective - Vital Signs Vital signs: Vital Signs Temp 98.6 F 10/20/23 08:00 Pulse 106 H 10/20/23 10:00 Resp 25 H 10/20/23 10:00 BP 134/67 10/20/23 09:45 Pulse Ox 99 10/20/23 10:00 FiO2 50 10/20/23 08:00 Intake & Output 10/19/23 10/20/23 10/20/23 18:59 06:59 18:59 Intake Total 2102 1430.907 50 Output Total 410 0 Balance 2102 1020.907 50 Weight 97.522 kg 113.4 kg Intake: IV 2102 500 50 Dextrose 5% in Water 1, 500 50 000 ml @ 50 mls/hr IV . Q23H [facility] with Sodium Bicarb (1 Meq/ml) 150 ml Rx#:[id number] Intake, IV Titration 310.907 Amount Heparin Sod,Pork in 0.45% 108.667 NaCl 25,000 unit In 0.45 % NaCl 1 250ml.bag @ 10. 254 UNITS/KG/HR 10 mls/hr IV .Q24H [facility] Rx#: [id number] Norepinephrine 4 mg In 6.131 Sodium Chloride 0.9% 250 ml @ 0.03 MCG/KG/MIN 11. 147 mls/hr IV .[id number] [facility] Rx#:[id number] Norepinephrine 4 mg In 5.945 Sodium Chloride 0.9% 250 ml @ 0.03 MCG/KG/MIN 11. 147 mls/hr IV .[id number] [facility] Rx#:[id number] Norepinephrine 8 mg In 104.165 Sodium Chloride 0.9% 250 ml @ 0.03 MCG/KG/MIN 5. 661 mls/hr IV .Q24H [facility] Rx#:[id number] Sodium Chloride 0.9% 80 10.808 ml @ 0.5 MCG/KG/HR 4.876 mls/hr IV .[id number] [facility] with fentaNYL (PF) 1,000 mcg Rx#:[id number] propofoL 1,000 mg In 75.191 Empty Bag 1 bag @ 15 MCG/ KG/MIN 8.777 mls/hr IV . [id number] [facility] Rx#:[id number] Blood Product 620 Rc As-1 Unit 310 [id number] Rc As-1 Unit 310 [id number] Output: Urine 10 0 Estimated Blood Loss 400 Other: Voiding Method Indwelling Catheter Indwelling Catheter ABP, PAP, CO, CI - Last Documented Arterial Blood Pressure 120/43 - Labs CBC & Chem 7: 10/20/23 04:55 10/20/23 04:55 Labs: Abnormal Lab Results - Last 24 Hours (Table) 10/19/23 10/19/23 10/19/23 Range/Units 11:41 11:41 11:41 WBC 18.0 H (3.8-10.6) k/uL RBC 3.98 L (4.30-5.90) m/uL Hgb 11.2 L (13.0-17.5) gm/dL Hct 35.7 L (39.0-53.0) % Neutrophils # 16.3 H (1.3-7.7) k/uL Lymphocytes # 0.8 L (1.0-4.8) k/uL INR (<1.2) APTT (22.0-30.0) sec ABG pH (7.35-7.45) ABG pCO2 (35-45) mmHg ABG pO2 (83-108) mmHg ABG HCO3 (21-25) mmol/L ABG O2 Saturation (94-97) % Sodium (137-145) mmol/L Potassium (3.5-5.1) mmol/L Chloride (98-107) mmol/L Carbon Dioxide (22-30) mmol/L BUN (9-20) mg/dL Creatinine (0.66-1.25) mg/dL Glucose (74-99) mg/dL POC Glucose (mg/dL) (70-110) mg/dL Hemoglobin A1c (<=6.0) % Plasma Lactic Acid Lior (0.7-2.0) mmol/L Calcium (8.4-10.2) mg/dL Ionized Calcium Rich (4.5-5.3) mg/dL AST (17-59) U/L ALT (4-49) U/L Creatine Kinase (55-170) U/L Troponin I (0.000-0.034) ng/mL C-Reactive Protein (<1.0) mg/dL Total Protein (6.3-8.2) g/dL Albumin (3.5-5.0) g/dL Procalcitonin (0.02-0.09) ng/mL Urine Protein 2+ H (Negative) Urine Ketones Trace H (Negative) Urine Blood Moderate H (Negative) Urine WBC 12 H (0-5) /hpf Urine WBC Clumps Few H (None) /hpf Urine Bacteria Rare H (None) /hpf Hyaline Casts 80 H (0-2) /lpf Urine Mucus Many H (None) /hpf SARS-CoV-2 (PCR) Detected A (Not Detectd) Crossmatch 10/19/23 10/19/23 10/19/23 Range/Units 11:41 11:41 11:41 WBC (3.8-10.6) k/uL RBC (4.30-5.90) m/uL Hgb (13.0-17.5) gm/dL Hct (39.0-53.0) % Neutrophils # (1.3-7.7) k/uL Lymphocytes # (1.0-4.8) k/uL INR (<1.2) APTT (22.0-30.0) sec ABG pH (7.35-7.45) ABG pCO2 (35-45) mmHg ABG pO2 (83-108) mmHg ABG HCO3 (21-25) mmol/L ABG O2 Saturation (94-97) % Sodium 147 H (137-145) mmol/L Potassium 5.4 H (3.5-5.1) mmol/L Chloride 110 H (98-107) mmol/L Carbon Dioxide 7 L* (22-30) mmol/L BUN 53 H (9-20) mg/dL Creatinine 7.47 H* (0.66-1.25) mg/dL Glucose (74-99) mg/dL POC Glucose (mg/dL) (70-110) mg/dL Hemoglobin A1c (<=6.0) % Plasma Lactic Acid Lior 10.5 H* (0.7-2.0) mmol/L Calcium 7.9 L (8.4-10.2) mg/dL Ionized Calcium Rich (4.5-5.3) mg/dL AST 243 H (17-59) U/L ALT 78 H (4-49) U/L Creatine Kinase (55-170) U/L Troponin I 0.055 H* (0.000-0.034) ng/mL C-Reactive Protein (<1.0) mg/dL Total Protein (6.3-8.2) g/dL Albumin 3.2 L (3.5-5.0) g/dL Procalcitonin (0.02-0.09) ng/mL Urine Protein (Negative) Urine Ketones (Negative) Urine Blood (Negative) Urine WBC (0-5) /hpf Urine WBC Clumps (None) /hpf Urine Bacteria (None) /hpf Hyaline Casts (0-2) /lpf Urine Mucus (None) /hpf SARS-CoV-2 (PCR) (Not Detectd) Crossmatch 10/19/23 10/19/23 10/19/23 Range/Units 11:41 11:41 11:42 WBC (3.8-10.6) k/uL RBC (4.30-5.90) m/uL Hgb (13.0-17.5) gm/dL Hct (39.0-53.0) % Neutrophils # (1.3-7.7) k/uL Lymphocytes # (1.0-4.8) k/uL INR (<1.2) APTT (22.0-30.0) sec ABG pH (7.35-7.45) ABG pCO2 (35-45) mmHg ABG pO2 (83-108) mmHg ABG HCO3 (21-25) mmol/L ABG O2 Saturation (94-97) % Sodium (137-145) mmol/L Potassium (3.5-5.1) mmol/L Chloride (98-107) mmol/L Carbon Dioxide (22-30) mmol/L BUN (9-20) mg/dL Creatinine (0.66-1.25) mg/dL Glucose (74-99) mg/dL POC Glucose (mg/dL) (70-110) mg/dL Hemoglobin A1c 9.3 H (<=6.0) % Plasma Lactic Acid Lior (0.7-2.0) mmol/L Calcium (8.4-10.2) mg/dL Ionized Calcium Rich (4.5-5.3) mg/dL AST (17-59) U/L ALT (4-49) U/L Creatine Kinase (55-170) U/L Troponin I (0.000-0.034) ng/mL C-Reactive Protein 7.3 H (<1.0) mg/dL Total Protein (6.3-8.2) g/dL Albumin (3.5-5.0) g/dL Procalcitonin 57.50 H (0.02-0.09) ng/mL Urine Protein (Negative) Urine Ketones (Negative) Urine Blood (Negative) Urine WBC (0-5) /hpf Urine WBC Clumps (None) /hpf Urine Bacteria (None) /hpf Hyaline Casts (0-2) /lpf Urine Mucus (None) /hpf SARS-CoV-2 (PCR) (Not Detectd) Crossmatch 10/19/23 10/19/23 10/19/23 Range/Units 12:22 12:22 13:36 WBC (3.8-10.6) k/uL RBC (4.30-5.90) m/uL Hgb (13.0-17.5) gm/dL Hct (39.0-53.0) % Neutrophils # (1.3-7.7) k/uL Lymphocytes # (1.0-4.8) k/uL INR 1.2 H (<1.2) APTT 21.1 L (22.0-30.0) sec ABG pH (7.35-7.45) ABG pCO2 (35-45) mmHg ABG pO2 (83-108) mmHg ABG HCO3 (21-25) mmol/L ABG O2 Saturation (94-97) % Sodium (137-145) mmol/L Potassium (3.5-5.1) mmol/L Chloride (98-107) mmol/L Carbon Dioxide (22-30) mmol/L BUN (9-20) mg/dL Creatinine (0.66-1.25) mg/dL Glucose (74-99) mg/dL POC Glucose (mg/dL) 119 H (70-110) mg/dL Hemoglobin A1c (<=6.0) % Plasma Lactic Acid Lior (0.7-2.0) mmol/L Calcium (8.4-10.2) mg/dL Ionized Calcium Rich (4.5-5.3) mg/dL AST (17-59) U/L ALT (4-49) U/L Creatine Kinase 8909 H* (55-170) U/L Troponin I (0.000-0.034) ng/mL C-Reactive Protein (<1.0) mg/dL Total Protein (6.3-8.2) g/dL Albumin (3.5-5.0) g/dL Procalcitonin (0.02-0.09) ng/mL Urine Protein (Negative) Urine Ketones (Negative) Urine Blood (Negative) Urine WBC (0-5) /hpf Urine WBC Clumps (None) /hpf Urine Bacteria (None) /hpf Hyaline Casts (0-2) /lpf Urine Mucus (None) /hpf SARS-CoV-2 (PCR) (Not Detectd) Crossmatch 10/19/23 10/19/23 10/19/23 Range/Units 14:45 15:39 17:12 WBC (3.8-10.6) k/uL RBC (4.30-5.90) m/uL Hgb (13.0-17.5) gm/dL Hct (39.0-53.0) % Neutrophils # (1.3-7.7) k/uL Lymphocytes # (1.0-4.8) k/uL INR (<1.2) APTT (22.0-30.0) sec ABG pH 7.18 L* (7.35-7.45) ABG pCO2 (35-45) mmHg ABG pO2 396 H (83-108) mmHg ABG HCO3 13 L (21-25) mmol/L ABG O2 Saturation 99.7 H (94-97) % Sodium (137-145) mmol/L Potassium (3.5-5.1) mmol/L Chloride (98-107) mmol/L Carbon Dioxide (22-30) mmol/L BUN (9-20) mg/dL Creatinine (0.66-1.25) mg/dL Glucose (74-99) mg/dL POC Glucose (mg/dL) 44 L (70-110) mg/dL Hemoglobin A1c (<=6.0) % Plasma Lactic Acid Lior (0.7-2.0) mmol/L Calcium (8.4-10.2) mg/dL Ionized Calcium Rich (4.5-5.3) mg/dL AST (17-59) U/L ALT (4-49) U/L Creatine Kinase (55-170) U/L Troponin I (0.000-0.034) ng/mL C-Reactive Protein (<1.0) mg/dL Total Protein (6.3-8.2) g/dL Albumin (3.5-5.0) g/dL Procalcitonin (0.02-0.09) ng/mL Urine Protein (Negative) Urine Ketones (Negative) Urine Blood (Negative) Urine WBC (0-5) /hpf Urine WBC Clumps (None) /hpf Urine Bacteria (None) /hpf Hyaline Casts (0-2) /lpf Urine Mucus (None) /hpf SARS-CoV-2 (PCR) (Not Detectd) Crossmatch See Detail 10/19/23 10/19/23 10/19/23 Range/Units 17:38 17:48 18:31 WBC (3.8-10.6) k/uL RBC (4.30-5.90) m/uL Hgb (13.0-17.5) gm/dL Hct (39.0-53.0) % Neutrophils # (1.3-7.7) k/uL Lymphocytes # (1.0-4.8) k/uL INR (<1.2) APTT (22.0-30.0) sec ABG pH 7.26 L (7.35-7.45) ABG pCO2 26 L (35-45) mmHg ABG pO2 365 H (83-108) mmHg ABG HCO3 12 L (21-25) mmol/L ABG O2 Saturation 99.7 H (94-97) % Sodium (137-145) mmol/L Potassium (3.5-5.1) mmol/L Chloride (98-107) mmol/L Carbon Dioxide (22-30) mmol/L BUN (9-20) mg/dL Creatinine (0.66-1.25) mg/dL Glucose (74-99) mg/dL POC Glucose (mg/dL) 149 H 111 H (70-110) mg/dL Hemoglobin A1c (<=6.0) % Plasma Lactic Acid Lior (0.7-2.0) mmol/L Calcium (8.4-10.2) mg/dL Ionized Calcium Rich (4.5-5.3) mg/dL AST (17-59) U/L ALT (4-49) U/L Creatine Kinase (55-170) U/L Troponin I (0.000-0.034) ng/mL C-Reactive Protein (<1.0) mg/dL Total Protein (6.3-8.2) g/dL Albumin (3.5-5.0) g/dL Procalcitonin (0.02-0.09) ng/mL Urine Protein (Negative) Urine Ketones (Negative) Urine Blood (Negative) Urine WBC (0-5) /hpf Urine WBC Clumps (None) /hpf Urine Bacteria (None) /hpf Hyaline Casts (0-2) /lpf Urine Mucus (None) /hpf SARS-CoV-2 (PCR) (Not Detectd) Crossmatch 10/19/23 10/19/23 10/19/23 Range/Units 19:25 19:25 19:25 WBC 14.2 H (3.8-10.6) k/uL RBC 2.64 L (4.30-5.90) m/uL Hgb 7.5 L D (13.0-17.5) gm/dL Hct 22.7 L (39.0-53.0) % Neutrophils # 12.6 H (1.3-7.7) k/uL Lymphocytes # (1.0-4.8) k/uL INR (<1.2) APTT (22.0-30.0) sec ABG pH (7.35-7.45) ABG pCO2 (35-45) mmHg ABG pO2 (83-108) mmHg ABG HCO3 (21-25) mmol/L ABG O2 Saturation (94-97) % Sodium 148 H (137-145) mmol/L Potassium (3.5-5.1) mmol/L Chloride 116 H (98-107) mmol/L Carbon Dioxide 11 L (22-30) mmol/L BUN 51 H (9-20) mg/dL Creatinine 5.69 H (0.66-1.25) mg/dL Glucose (74-99) mg/dL POC Glucose (mg/dL) (70-110) mg/dL Hemoglobin A1c (<=6.0) % Plasma Lactic Acid Lior (0.7-2.0) mmol/L Calcium 6.1 L* (8.4-10.2) mg/dL Ionized Calcium Rich (4.5-5.3) mg/dL AST (17-59) U/L ALT (4-49) U/L Creatine Kinase (55-170) U/L Troponin I 0.048 H* (0.000-0.034) ng/mL C-Reactive Protein (<1.0) mg/dL Total Protein (6.3-8.2) g/dL Albumin (3.5-5.0) g/dL Procalcitonin (0.02-0.09) ng/mL Urine Protein (Negative) Urine Ketones (Negative) Urine Blood (Negative) Urine WBC (0-5) /hpf Urine WBC Clumps (None) /hpf Urine Bacteria (None) /hpf Hyaline Casts (0-2) /lpf Urine Mucus (None) /hpf SARS-CoV-2 (PCR) (Not Detectd) Crossmatch 10/19/23 10/19/23 10/19/23 Range/Units 19:25 20:00 20:50 WBC (3.8-10.6) k/uL RBC (4.30-5.90) m/uL Hgb (13.0-17.5) gm/dL Hct (39.0-53.0) % Neutrophils # (1.3-7.7) k/uL Lymphocytes # (1.0-4.8) k/uL INR (<1.2) APTT >200.0 H* (22.0-30.0) sec ABG pH 7.34 L (7.35-7.45) ABG pCO2 30 L (35-45) mmHg ABG pO2 383 H (83-108) mmHg ABG HCO3 16 L (21-25) mmol/L ABG O2 Saturation 100.0 H (94-97) % Sodium (137-145) mmol/L Potassium (3.5-5.1) mmol/L Chloride (98-107) mmol/L Carbon Dioxide (22-30) mmol/L BUN (9-20) mg/dL Creatinine (0.66-1.25) mg/dL Glucose (74-99) mg/dL POC Glucose (mg/dL) (70-110) mg/dL Hemoglobin A1c (<=6.0) % Plasma Lactic Acid Lior 5.5 H* (0.7-2.0) mmol/L Calcium (8.4-10.2) mg/dL Ionized Calcium Rich (4.5-5.3) mg/dL AST (17-59) U/L ALT (4-49) U/L Creatine Kinase (55-170) U/L Troponin I (0.000-0.034) ng/mL C-Reactive Protein (<1.0) mg/dL Total Protein (6.3-8.2) g/dL Albumin (3.5-5.0) g/dL Procalcitonin (0.02-0.09) ng/mL Urine Protein (Negative) Urine Ketones (Negative) Urine Blood (Negative) Urine WBC (0-5) /hpf Urine WBC Clumps (None) /hpf Urine Bacteria (None) /hpf Hyaline Casts (0-2) /lpf Urine Mucus (None) /hpf SARS-CoV-2 (PCR) (Not Detectd) Crossmatch 10/19/23 10/19/23 10/19/23 Range/Units 21:30 21:54 23:53 WBC (3.8-10.6) k/uL RBC (4.30-5.90) m/uL Hgb (13.0-17.5) gm/dL Hct (39.0-53.0) % Neutrophils # (1.3-7.7) k/uL Lymphocytes # (1.0-4.8) k/uL INR (<1.2) APTT (22.0-30.0) sec ABG pH (7.35-7.45) ABG pCO2 (35-45) mmHg ABG pO2 (83-108) mmHg ABG HCO3 (21-25) mmol/L ABG O2 Saturation (94-97) % Sodium (137-145) mmol/L Potassium (3.5-5.1) mmol/L Chloride (98-107) mmol/L Carbon Dioxide (22-30) mmol/L BUN (9-20) mg/dL Creatinine (0.66-1.25) mg/dL Glucose (74-99) mg/dL POC Glucose (mg/dL) 42 L 153 H 155 H (70-110) mg/dL Hemoglobin A1c (<=6.0) % Plasma Lactic Acid Lior (0.7-2.0) mmol/L Calcium (8.4-10.2) mg/dL Ionized Calcium Rich (4.5-5.3) mg/dL AST (17-59) U/L ALT (4-49) U/L Creatine Kinase (55-170) U/L Troponin I (0.000-0.034) ng/mL C-Reactive Protein (<1.0) mg/dL Total Protein (6.3-8.2) g/dL Albumin (3.5-5.0) g/dL Procalcitonin (0.02-0.09) ng/mL Urine Protein (Negative) Urine Ketones (Negative) Urine Blood (Negative) Urine WBC (0-5) /hpf Urine WBC Clumps (None) /hpf Urine Bacteria (None) /hpf Hyaline Casts (0-2) /lpf Urine Mucus (None) /hpf SARS-CoV-2 (PCR) (Not Detectd) Crossmatch 10/20/23 10/20/23 10/20/23 Range/Units 00:00 00:00 00:00 WBC (3.8-10.6) k/uL RBC (4.30-5.90) m/uL Hgb (13.0-17.5) gm/dL Hct (39.0-53.0) % Neutrophils # (1.3-7.7) k/uL Lymphocytes # (1.0-4.8) k/uL INR (<1.2) APTT 45.6 H (22.0-30.0) sec ABG pH (7.35-7.45) ABG pCO2 (35-45) mmHg ABG pO2 (83-108) mmHg ABG HCO3 (21-25) mmol/L ABG O2 Saturation (94-97) % Sodium (137-145) mmol/L Potassium (3.5-5.1) mmol/L Chloride (98-107) mmol/L Carbon Dioxide (22-30) mmol/L BUN (9-20) mg/dL Creatinine (0.66-1.25) mg/dL Glucose (74-99) mg/dL POC Glucose (mg/dL) (70-110) mg/dL Hemoglobin A1c (<=6.0) % Plasma Lactic Acid Lior 4.7 H* (0.7-2.0) mmol/L Calcium (8.4-10.2) mg/dL Ionized Calcium Rich (4.5-5.3) mg/dL AST (17-59) U/L ALT (4-49) U/L Creatine Kinase (55-170) U/L Troponin I 0.051 H* (0.000-0.034) ng/mL C-Reactive Protein (<1.0) mg/dL Total Protein (6.3-8.2) g/dL Albumin (3.5-5.0) g/dL Procalcitonin (0.02-0.09) ng/mL Urine Protein (Negative) Urine Ketones (Negative) Urine Blood (Negative) Urine WBC (0-5) /hpf Urine WBC Clumps (None) /hpf Urine Bacteria (None) /hpf Hyaline Casts (0-2) /lpf Urine Mucus (None) /hpf SARS-CoV-2 (PCR) (Not Detectd) Crossmatch 10/20/23 10/20/23 10/20/23 Range/Units 04:55 04:55 04:55 WBC 22.8 H (3.8-10.6) k/uL RBC 3.83 L (4.30-5.90) m/uL Hgb 10.9 L D (13.0-17.5) gm/dL Hct 33.5 L (39.0-53.0) % Neutrophils # 21.2 H (1.3-7.7) k/uL Lymphocytes # 0.7 L (1.0-4.8) k/uL INR (<1.2) APTT 44.0 H (22.0-30.0) sec ABG pH (7.35-7.45) ABG pCO2 (35-45) mmHg ABG pO2 (83-108) mmHg ABG HCO3 (21-25) mmol/L ABG O2 Saturation (94-97) % Sodium 146 H (137-145) mmol/L Potassium 6.0 H (3.5-5.1) mmol/L Chloride 113 H (98-107) mmol/L Carbon Dioxide 14 L (22-30) mmol/L BUN 51 H (9-20) mg/dL Creatinine 5.96 H (0.66-1.25) mg/dL Glucose 111 H (74-99) mg/dL POC Glucose (mg/dL) (70-110) mg/dL Hemoglobin A1c (<=6.0) % Plasma Lactic Acid Lior (0.7-2.0) mmol/L Calcium 5.5 L* (8.4-10.2) mg/dL Ionized Calcium Rich (4.5-5.3) mg/dL AST 473 H (17-59) U/L ALT 88 H (4-49) U/L Creatine Kinase (55-170) U/L Troponin I (0.000-0.034) ng/mL C-Reactive Protein (<1.0) mg/dL Total Protein 5.5 L (6.3-8.2) g/dL Albumin 2.9 L (3.5-5.0) g/dL Procalcitonin (0.02-0.09) ng/mL Urine Protein (Negative) Urine Ketones (Negative) Urine Blood (Negative) Urine WBC (0-5) /hpf Urine WBC Clumps (None) /hpf Urine Bacteria (None) /hpf Hyaline Casts (0-2) /lpf Urine Mucus (None) /hpf SARS-CoV-2 (PCR) (Not Detectd) Crossmatch 10/20/23 10/20/23 Range/Units 06:13 06:48 WBC (3.8-10.6) k/uL RBC (4.30-5.90) m/uL Hgb (13.0-17.5) gm/dL Hct (39.0-53.0) % Neutrophils # (1.3-7.7) k/uL Lymphocytes # (1.0-4.8) k/uL INR (<1.2) APTT (22.0-30.0) sec ABG pH (7.35-7.45) ABG pCO2 (35-45) mmHg ABG pO2 (83-108) mmHg ABG HCO3 (21-25) mmol/L ABG O2 Saturation (94-97) % Sodium (137-145) mmol/L Potassium (3.5-5.1) mmol/L Chloride (98-107) mmol/L Carbon Dioxide (22-30) mmol/L BUN (9-20) mg/dL Creatinine (0.66-1.25) mg/dL Glucose (74-99) mg/dL POC Glucose (mg/dL) 121 H (70-110) mg/dL Hemoglobin A1c (<=6.0) % Plasma Lactic Acid Lior (0.7-2.0) mmol/L Calcium (8.4-10.2) mg/dL Ionized Calcium Rich 3.3 L* (4.5-5.3) mg/dL AST (17-59) U/L ALT (4-49) U/L Creatine Kinase (55-170) U/L Troponin I (0.000-0.034) ng/mL C-Reactive Protein (<1.0) mg/dL Total Protein (6.3-8.2) g/dL Albumin (3.5-5.0) g/dL Procalcitonin (0.02-0.09) ng/mL Urine Protein (Negative) Urine Ketones (Negative) Urine Blood (Negative) Urine WBC (0-5) /hpf Urine WBC Clumps (None) /hpf Urine Bacteria (None) /hpf Hyaline Casts (0-2) /lpf Urine Mucus (None) /hpf SARS-CoV-2 (PCR) (Not Detectd) Crossmatch
[2023-10-20 16:36] LABS: Glucose,Whole Blood 74 mg/dL (70-110)
[2023-10-20] MEDS: HEPARIN SOD,PORK IN 0.45% NACL 25,000 UNIT in 0.45% NACL 1 250ML.BAG IV SCH (18:43)
[2023-10-20] MEDS: DEXTROSE 5% IN WATER 1,000 ML with SODIUM BICARB (1 MEQ/ML) 150 ML IV SCH (18:43)
[2023-10-20 20:12] LABS: Glucose,Whole Blood 67 mg/dL (70-110)
[2023-10-20] MEDS ORDERED: DEXTROSE 50% SYRINGE 50 ML IVP PRN (20:32)
[2023-10-20] MEDS: DEXTROSE 50% SYRINGE 50 ML IVP PRN (20:37)
[2023-10-20 21:00] LABS: Glucose,Whole Blood 62 mg/dL (70-110)
[2023-10-20 21:03] LABS: Glucose,Whole Blood 206 mg/dL (70-110)
--- NOTE | 2023-10-20 22:00 | P.PN ---
Subjective Progress Note Date: 10/20/23 Principal diagnosis: Leukocytosis and lactic acidosis Patient is a 72-year-old male with multiple comorbidities including diabetes mellitus presented to the hospital with acute pain to bilateral lower extremity and this patient has been diagnosed with bilateral lower extremity critical limb ischemia bilateral popliteal and tibial artery thrombosis and bilateral superficial femoral artery occlusion status post open thrombectomy of bilateral popliteal superficial femoral and tibial arteries patient did have bilateral 4 compartment fasciotomy subsequently admitted to the ICU on the vent On today's evaluation that is 10/20/2023 patient is afebrile he is tachycardic and tachypneic currently on 50% FiO2 no significant purulent secretions through the ET diarrhea or any other changes reported by the nursing staff Patient did have a white count of 22.8 lactic acid 3.7 creatinine is 5.96 blood cultures are pending Objective - Vital Signs Vital signs: Vital Signs Temp 98.6 F 10/20/23 08:00 Pulse 106 H 10/20/23 10:00 Resp 25 H 10/20/23 10:00 BP 134/67 10/20/23 09:45 Pulse Ox 99 10/20/23 10:00 FiO2 50 10/20/23 08:00 Intake & Output 10/19/23 10/20/23 10/20/23 18:59 06:59 18:59 Intake Total 2102 1430.907 50 Output Total 410 0 Balance 2102 1020.907 50 Weight 97.522 kg 113.4 kg Intake: IV 2102 500 50 Dextrose 5% in Water 1, 500 50 000 ml @ 50 mls/hr IV . Q23H JOLYNN with Sodium Bicarb (1 Meq/ml) 150 ml Rx#:[id number] Intake, IV Titration 310.907 Amount Heparin Sod,Pork in 0.45% 108.667 NaCl 25,000 unit In 0.45 % NaCl 1 250ml.bag @ 10. 254 UNITS/KG/HR 10 mls/hr IV .Q24H JOLYNN Rx#: [id number] Norepinephrine 4 mg In 6.131 Sodium Chloride 0.9% 250 ml @ 0.03 MCG/KG/MIN 11. 147 mls/hr IV .[id number] JOLYNN Rx#:[id number] Norepinephrine 4 mg In 5.945 Sodium Chloride 0.9% 250 ml @ 0.03 MCG/KG/MIN 11. 147 mls/hr IV .[id number] JOLYNN Rx#:[id number] Norepinephrine 8 mg In 104.165 Sodium Chloride 0.9% 250 ml @ 0.03 MCG/KG/MIN 5. 661 mls/hr IV .Q24H JOLYNN Rx#:[id number] Sodium Chloride 0.9% 80 10.808 ml @ 0.5 MCG/KG/HR 4.876 mls/hr IV .[id number] JOLYNN with fentaNYL (PF) 1,000 mcg Rx#:[id number] propofoL 1,000 mg In 75.191 Empty Bag 1 bag @ 15 MCG/ KG/MIN 8.777 mls/hr IV . [id number] JOLYNN Rx#:[id number] Blood Product 620 Rc As-1 Unit 310 [id number] Rc As-1 Unit 310 [id number] Output: Urine 10 0 Estimated Blood Loss 400 Other: Voiding Method Indwelling Catheter Indwelling Catheter ABP, PAP, CO, CI - Last Documented Arterial Blood Pressure 120/43 - Exam GENERAL DESCRIPTION: An elderly male intubated on the vent RESPIRATORY SYSTEM: Unlabored breathing , decreased breath sounds at bases HEART: S1 S2 regular rate and rhythm , ABDOMEN: Soft , no tenderness EXTREMITIES: Bilateral lower extremities currently dressed - Labs CBC & Chem 7: 10/20/23 04:55 10/20/23 04:55 Labs: Abnormal Lab Results - Last 24 Hours (Table) 10/19/23 10/19/23 10/19/23 Range/Units 11:41 11:41 11:41 WBC 18.0 H (3.8-10.6) k/uL RBC 3.98 L (4.30-5.90) m/uL Hgb 11.2 L (13.0-17.5) gm/dL Hct 35.7 L (39.0-53.0) % Neutrophils # 16.3 H (1.3-7.7) k/uL Lymphocytes # 0.8 L (1.0-4.8) k/uL INR (<1.2) APTT (22.0-30.0) sec ABG pH (7.35-7.45) ABG pCO2 (35-45) mmHg ABG pO2 (83-108) mmHg ABG HCO3 (21-25) mmol/L ABG O2 Saturation (94-97) % Sodium (137-145) mmol/L Potassium (3.5-5.1) mmol/L Chloride (98-107) mmol/L Carbon Dioxide (22-30) mmol/L BUN (9-20) mg/dL Creatinine (0.66-1.25) mg/dL Glucose (74-99) mg/dL POC Glucose (mg/dL) (70-110) mg/dL Hemoglobin A1c (<=6.0) % Plasma Lactic Acid Lior (0.7-2.0) mmol/L Calcium (8.4-10.2) mg/dL Ionized Calcium Rich (4.5-5.3) mg/dL AST (17-59) U/L ALT (4-49) U/L Creatine Kinase (55-170) U/L Troponin I (0.000-0.034) ng/mL C-Reactive Protein (<1.0) mg/dL Total Protein (6.3-8.2) g/dL Albumin (3.5-5.0) g/dL Procalcitonin (0.02-0.09) ng/mL Urine Protein 2+ H (Negative) Urine Ketones Trace H (Negative) Urine Blood Moderate H (Negative) Urine WBC 12 H (0-5) /hpf Urine WBC Clumps Few H (None) /hpf Urine Bacteria Rare H (None) /hpf Hyaline Casts 80 H (0-2) /lpf Urine Mucus Many H (None) /hpf SARS-CoV-2 (PCR) Detected A (Not Detectd) Crossmatch 10/19/23 10/19/23 10/19/23 Range/Units 11:41 11:41 11:41 WBC (3.8-10.6) k/uL RBC (4.30-5.90) m/uL Hgb (13.0-17.5) gm/dL Hct (39.0-53.0) % Neutrophils # (1.3-7.7) k/uL Lymphocytes # (1.0-4.8) k/uL INR (<1.2) APTT (22.0-30.0) sec ABG pH (7.35-7.45) ABG pCO2 (35-45) mmHg ABG pO2 (83-108) mmHg ABG HCO3 (21-25) mmol/L ABG O2 Saturation (94-97) % Sodium 147 H (137-145) mmol/L Potassium 5.4 H (3.5-5.1) mmol/L Chloride 110 H (98-107) mmol/L Carbon Dioxide 7 L* (22-30) mmol/L BUN 53 H (9-20) mg/dL Creatinine 7.47 H* (0.66-1.25) mg/dL Glucose (74-99) mg/dL POC Glucose (mg/dL) (70-110) mg/dL Hemoglobin A1c (<=6.0) % Plasma Lactic Acid Lior 10.5 H* (0.7-2.0) mmol/L Calcium 7.9 L (8.4-10.2) mg/dL Ionized Calcium Rich (4.5-5.3) mg/dL AST 243 H (17-59) U/L ALT 78 H (4-49) U/L Creatine Kinase (55-170) U/L Troponin I 0.055 H* (0.000-0.034) ng/mL C-Reactive Protein (<1.0) mg/dL Total Protein (6.3-8.2) g/dL Albumin 3.2 L (3.5-5.0) g/dL Procalcitonin (0.02-0.09) ng/mL Urine Protein (Negative) Urine Ketones (Negative) Urine Blood (Negative) Urine WBC (0-5) /hpf Urine WBC Clumps (None) /hpf Urine Bacteria (None) /hpf Hyaline Casts (0-2) /lpf Urine Mucus (None) /hpf SARS-CoV-2 (PCR) (Not Detectd) Crossmatch 10/19/23 10/19/23 10/19/23 Range/Units 11:41 11:41 11:42 WBC (3.8-10.6) k/uL RBC (4.30-5.90) m/uL Hgb (13.0-17.5) gm/dL Hct (39.0-53.0) % Neutrophils # (1.3-7.7) k/uL Lymphocytes # (1.0-4.8) k/uL INR (<1.2) APTT (22.0-30.0) sec ABG pH (7.35-7.45) ABG pCO2 (35-45) mmHg ABG pO2 (83-108) mmHg ABG HCO3 (21-25) mmol/L ABG O2 Saturation (94-97) % Sodium (137-145) mmol/L Potassium (3.5-5.1) mmol/L Chloride (98-107) mmol/L Carbon Dioxide (22-30) mmol/L BUN (9-20) mg/dL Creatinine (0.66-1.25) mg/dL Glucose (74-99) mg/dL POC Glucose (mg/dL) (70-110) mg/dL Hemoglobin A1c 9.3 H (<=6.0) % Plasma Lactic Acid Lior (0.7-2.0) mmol/L Calcium (8.4-10.2) mg/dL Ionized Calcium Rich (4.5-5.3) mg/dL AST (17-59) U/L ALT (4-49) U/L Creatine Kinase (55-170) U/L Troponin I (0.000-0.034) ng/mL C-Reactive Protein 7.3 H (<1.0) mg/dL Total Protein (6.3-8.2) g/dL Albumin (3.5-5.0) g/dL Procalcitonin 57.50 H (0.02-0.09) ng/mL Urine Protein (Negative) Urine Ketones (Negative) Urine Blood (Negative) Urine WBC (0-5) /hpf Urine WBC Clumps (None) /hpf Urine Bacteria (None) /hpf Hyaline Casts (0-2) /lpf Urine Mucus (None) /hpf SARS-CoV-2 (PCR) (Not Detectd) Crossmatch 10/19/23 10/19/23 10/19/23 Range/Units 12:22 12:22 13:36 WBC (3.8-10.6) k/uL RBC (4.30-5.90) m/uL Hgb (13.0-17.5) gm/dL Hct (39.0-53.0) % Neutrophils # (1.3-7.7) k/uL Lymphocytes # (1.0-4.8) k/uL INR 1.2 H (<1.2) APTT 21.1 L (22.0-30.0) sec ABG pH (7.35-7.45) ABG pCO2 (35-45) mmHg ABG pO2 (83-108) mmHg ABG HCO3 (21-25) mmol/L ABG O2 Saturation (94-97) % Sodium (137-145) mmol/L Potassium (3.5-5.1) mmol/L Chloride (98-107) mmol/L Carbon Dioxide (22-30) mmol/L BUN (9-20) mg/dL Creatinine (0.66-1.25) mg/dL Glucose (74-99) mg/dL POC Glucose (mg/dL) 119 H (70-110) mg/dL Hemoglobin A1c (<=6.0) % Plasma Lactic Acid Lior (0.7-2.0) mmol/L Calcium (8.4-10.2) mg/dL Ionized Calcium Rich (4.5-5.3) mg/dL AST (17-59) U/L ALT (4-49) U/L Creatine Kinase 8909 H* (55-170) U/L Troponin I (0.000-0.034) ng/mL C-Reactive Protein (<1.0) mg/dL Total Protein (6.3-8.2) g/dL Albumin (3.5-5.0) g/dL Procalcitonin (0.02-0.09) ng/mL Urine Protein (Negative) Urine Ketones (Negative) Urine Blood (Negative) Urine WBC (0-5) /hpf Urine WBC Clumps (None) /hpf Urine Bacteria (None) /hpf Hyaline Casts (0-2) /lpf Urine Mucus (None) /hpf SARS-CoV-2 (PCR) (Not Detectd) Crossmatch 10/19/23 10/19/23 10/19/23 Range/Units 14:45 15:39 17:12 WBC (3.8-10.6) k/uL RBC (4.30-5.90) m/uL Hgb (13.0-17.5) gm/dL Hct (39.0-53.0) % Neutrophils # (1.3-7.7) k/uL Lymphocytes # (1.0-4.8) k/uL INR (<1.2) APTT (22.0-30.0) sec ABG pH 7.18 L* (7.35-7.45) ABG pCO2 (35-45) mmHg ABG pO2 396 H (83-108) mmHg ABG HCO3 13 L (21-25) mmol/L ABG O2 Saturation 99.7 H (94-97) % Sodium (137-145) mmol/L Potassium (3.5-5.1) mmol/L Chloride (98-107) mmol/L Carbon Dioxide (22-30) mmol/L BUN (9-20) mg/dL Creatinine (0.66-1.25) mg/dL Glucose (74-99) mg/dL POC Glucose (mg/dL) 44 L (70-110) mg/dL Hemoglobin A1c (<=6.0) % Plasma Lactic Acid Lior (0.7-2.0) mmol/L Calcium (8.4-10.2) mg/dL Ionized Calcium Rich (4.5-5.3) mg/dL AST (17-59) U/L ALT (4-49) U/L Creatine Kinase (55-170) U/L Troponin I (0.000-0.034) ng/mL C-Reactive Protein (<1.0) mg/dL Total Protein (6.3-8.2) g/dL Albumin (3.5-5.0) g/dL Procalcitonin (0.02-0.09) ng/mL Urine Protein (Negative) Urine Ketones (Negative) Urine Blood (Negative) Urine WBC (0-5) /hpf Urine WBC Clumps (None) /hpf Urine Bacteria (None) /hpf Hyaline Casts (0-2) /lpf Urine Mucus (None) /hpf SARS-CoV-2 (PCR) (Not Detectd) Crossmatch See Detail 10/19/23 10/19/23 10/19/23 Range/Units 17:38 17:48 18:31 WBC (3.8-10.6) k/uL RBC (4.30-5.90) m/uL Hgb (13.0-17.5) gm/dL Hct (39.0-53.0) % Neutrophils # (1.3-7.7) k/uL Lymphocytes # (1.0-4.8) k/uL INR (<1.2) APTT (22.0-30.0) sec ABG pH 7.26 L (7.35-7.45) ABG pCO2 26 L (35-45) mmHg ABG pO2 365 H (83-108) mmHg ABG HCO3 12 L (21-25) mmol/L ABG O2 Saturation 99.7 H (94-97) % Sodium (137-145) mmol/L Potassium (3.5-5.1) mmol/L Chloride (98-107) mmol/L Carbon Dioxide (22-30) mmol/L BUN (9-20) mg/dL Creatinine (0.66-1.25) mg/dL Glucose (74-99) mg/dL POC Glucose (mg/dL) 149 H 111 H (70-110) mg/dL Hemoglobin A1c (<=6.0) % Plasma Lactic Acid Lior (0.7-2.0) mmol/L Calcium (8.4-10.2) mg/dL Ionized Calcium Rich (4.5-5.3) mg/dL AST (17-59) U/L ALT (4-49) U/L Creatine Kinase (55-170) U/L Troponin I (0.000-0.034) ng/mL C-Reactive Protein (<1.0) mg/dL Total Protein (6.3-8.2) g/dL Albumin (3.5-5.0) g/dL Procalcitonin (0.02-0.09) ng/mL Urine Protein (Negative) Urine Ketones (Negative) Urine Blood (Negative) Urine WBC (0-5) /hpf Urine WBC Clumps (None) /hpf Urine Bacteria (None) /hpf Hyaline Casts (0-2) /lpf Urine Mucus (None) /hpf SARS-CoV-2 (PCR) (Not Detectd) Crossmatch 10/19/23 10/19/23 10/19/23 Range/Units 19:25 19:25 19:25 WBC 14.2 H (3.8-10.6) k/uL RBC 2.64 L (4.30-5.90) m/uL Hgb 7.5 L D (13.0-17.5) gm/dL Hct 22.7 L (39.0-53.0) % Neutrophils # 12.6 H (1.3-7.7) k/uL Lymphocytes # (1.0-4.8) k/uL INR (<1.2) APTT (22.0-30.0) sec ABG pH (7.35-7.45) ABG pCO2 (35-45) mmHg ABG pO2 (83-108) mmHg ABG HCO3 (21-25) mmol/L ABG O2 Saturation (94-97) % Sodium 148 H (137-145) mmol/L Potassium (3.5-5.1) mmol/L Chloride 116 H (98-107) mmol/L Carbon Dioxide 11 L (22-30) mmol/L BUN 51 H (9-20) mg/dL Creatinine 5.69 H (0.66-1.25) mg/dL Glucose (74-99) mg/dL POC Glucose (mg/dL) (70-110) mg/dL Hemoglobin A1c (<=6.0) % Plasma Lactic Acid Lior (0.7-2.0) mmol/L Calcium 6.1 L* (8.4-10.2) mg/dL Ionized Calcium Rich (4.5-5.3) mg/dL AST (17-59) U/L ALT (4-49) U/L Creatine Kinase (55-170) U/L Troponin I 0.048 H* (0.000-0.034) ng/mL C-Reactive Protein (<1.0) mg/dL Total Protein (6.3-8.2) g/dL Albumin (3.5-5.0) g/dL Procalcitonin (0.02-0.09) ng/mL Urine Protein (Negative) Urine Ketones (Negative) Urine Blood (Negative) Urine WBC (0-5) /hpf Urine WBC Clumps (None) /hpf Urine Bacteria (None) /hpf Hyaline Casts (0-2) /lpf Urine Mucus (None) /hpf SARS-CoV-2 (PCR) (Not Detectd) Crossmatch 10/19/23 10/19/23 10/19/23 Range/Units 19:25 20:00 20:50 WBC (3.8-10.6) k/uL RBC (4.30-5.90) m/uL Hgb (13.0-17.5) gm/dL Hct (39.0-53.0) % Neutrophils # (1.3-7.7) k/uL Lymphocytes # (1.0-4.8) k/uL INR (<1.2) APTT >200.0 H* (22.0-30.0) sec ABG pH 7.34 L (7.35-7.45) ABG pCO2 30 L (35-45) mmHg ABG pO2 383 H (83-108) mmHg ABG HCO3 16 L (21-25) mmol/L ABG O2 Saturation 100.0 H (94-97) % Sodium (137-145) mmol/L Potassium (3.5-5.1) mmol/L Chloride (98-107) mmol/L Carbon Dioxide (22-30) mmol/L BUN (9-20) mg/dL Creatinine (0.66-1.25) mg/dL Glucose (74-99) mg/dL POC Glucose (mg/dL) (70-110) mg/dL Hemoglobin A1c (<=6.0) % Plasma Lactic Acid Lior 5.5 H* (0.7-2.0) mmol/L Calcium (8.4-10.2) mg/dL Ionized Calcium Rich (4.5-5.3) mg/dL AST (17-59) U/L ALT (4-49) U/L Creatine Kinase (55-170) U/L Troponin I (0.000-0.034) ng/mL C-Reactive Protein (<1.0) mg/dL Total Protein (6.3-8.2) g/dL Albumin (3.5-5.0) g/dL Procalcitonin (0.02-0.09) ng/mL Urine Protein (Negative) Urine Ketones (Negative) Urine Blood (Negative) Urine WBC (0-5) /hpf Urine WBC Clumps (None) /hpf Urine Bacteria (None) /hpf Hyaline Casts (0-2) /lpf Urine Mucus (None) /hpf SARS-CoV-2 (PCR) (Not Detectd) Crossmatch 10/19/23 10/19/23 10/19/23 Range/Units 21:30 21:54 23:53 WBC (3.8-10.6) k/uL RBC (4.30-5.90) m/uL Hgb (13.0-17.5) gm/dL Hct (39.0-53.0) % Neutrophils # (1.3-7.7) k/uL Lymphocytes # (1.0-4.8) k/uL INR (<1.2) APTT (22.0-30.0) sec ABG pH (7.35-7.45) ABG pCO2 (35-45) mmHg ABG pO2 (83-108) mmHg ABG HCO3 (21-25) mmol/L ABG O2 Saturation (94-97) % Sodium (137-145) mmol/L Potassium (3.5-5.1) mmol/L Chloride (98-107) mmol/L Carbon Dioxide (22-30) mmol/L BUN (9-20) mg/dL Creatinine (0.66-1.25) mg/dL Glucose (74-99) mg/dL POC Glucose (mg/dL) 42 L 153 H 155 H (70-110) mg/dL Hemoglobin A1c (<=6.0) % Plasma Lactic Acid Lior (0.7-2.0) mmol/L Calcium (8.4-10.2) mg/dL Ionized Calcium Rich (4.5-5.3) mg/dL AST (17-59) U/L ALT (4-49) U/L Creatine Kinase (55-170) U/L Troponin I (0.000-0.034) ng/mL C-Reactive Protein (<1.0) mg/dL Total Protein (6.3-8.2) g/dL Albumin (3.5-5.0) g/dL Procalcitonin (0.02-0.09) ng/mL Urine Protein (Negative) Urine Ketones (Negative) Urine Blood (Negative) Urine WBC (0-5) /hpf Urine WBC Clumps (None) /hpf Urine Bacteria (None) /hpf Hyaline Casts (0-2) /lpf Urine Mucus (None) /hpf SARS-CoV-2 (PCR) (Not Detectd) Crossmatch 10/20/23 10/20/23 10/20/23 Range/Units 00:00 00:00 00:00 WBC (3.8-10.6) k/uL RBC (4.30-5.90) m/uL Hgb (13.0-17.5) gm/dL Hct (39.0-53.0) % Neutrophils # (1.3-7.7) k/uL Lymphocytes # (1.0-4.8) k/uL INR (<1.2) APTT 45.6 H (22.0-30.0) sec ABG pH (7.35-7.45) ABG pCO2 (35-45) mmHg ABG pO2 (83-108) mmHg ABG HCO3 (21-25) mmol/L ABG O2 Saturation (94-97) % Sodium (137-145) mmol/L Potassium (3.5-5.1) mmol/L Chloride (98-107) mmol/L Carbon Dioxide (22-30) mmol/L BUN (9-20) mg/dL Creatinine (0.66-1.25) mg/dL Glucose (74-99) mg/dL POC Glucose (mg/dL) (70-110) mg/dL Hemoglobin A1c (<=6.0) % Plasma Lactic Acid Lior 4.7 H* (0.7-2.0) mmol/L Calcium (8.4-10.2) mg/dL Ionized Calcium Rich (4.5-5.3) mg/dL AST (17-59) U/L ALT (4-49) U/L Creatine Kinase (55-170) U/L Troponin I 0.051 H* (0.000-0.034) ng/mL C-Reactive Protein (<1.0) mg/dL Total Protein (6.3-8.2) g/dL Albumin (3.5-5.0) g/dL Procalcitonin (0.02-0.09) ng/mL Urine Protein (Negative) Urine Ketones (Negative) Urine Blood (Negative) Urine WBC (0-5) /hpf Urine WBC Clumps (None) /hpf Urine Bacteria (None) /hpf Hyaline Casts (0-2) /lpf Urine Mucus (None) /hpf SARS-CoV-2 (PCR) (Not Detectd) Crossmatch 10/20/23 10/20/23 10/20/23 Range/Units 04:55 04:55 04:55 WBC 22.8 H (3.8-10.6) k/uL RBC 3.83 L (4.30-5.90) m/uL Hgb 10.9 L D (13.0-17.5) gm/dL Hct 33.5 L (39.0-53.0) % Neutrophils # 21.2 H (1.3-7.7) k/uL Lymphocytes # 0.7 L (1.0-4.8) k/uL INR (<1.2) APTT 44.0 H (22.0-30.0) sec ABG pH (7.35-7.45) ABG pCO2 (35-45) mmHg ABG pO2 (83-108) mmHg ABG HCO3 (21-25) mmol/L ABG O2 Saturation (94-97) % Sodium 146 H (137-145) mmol/L Potassium 6.0 H (3.5-5.1) mmol/L Chloride 113 H (98-107) mmol/L Carbon Dioxide 14 L (22-30) mmol/L BUN 51 H (9-20) mg/dL Creatinine 5.96 H (0.66-1.25) mg/dL Glucose 111 H (74-99) mg/dL POC Glucose (mg/dL) (70-110) mg/dL Hemoglobin A1c (<=6.0) % Plasma Lactic Acid Lior (0.7-2.0) mmol/L Calcium 5.5 L* (8.4-10.2) mg/dL Ionized Calcium Rich (4.5-5.3) mg/dL AST 473 H (17-59) U/L ALT 88 H (4-49) U/L Creatine Kinase (55-170) U/L Troponin I (0.000-0.034) ng/mL C-Reactive Protein (<1.0) mg/dL Total Protein 5.5 L (6.3-8.2) g/dL Albumin 2.9 L (3.5-5.0) g/dL Procalcitonin (0.02-0.09) ng/mL Urine Protein (Negative) Urine Ketones (Negative) Urine Blood (Negative) Urine WBC (0-5) /hpf Urine WBC Clumps (None) /hpf Urine Bacteria (None) /hpf Hyaline Casts (0-2) /lpf Urine Mucus (None) /hpf SARS-CoV-2 (PCR) (Not Detectd) Crossmatch 10/20/23 10/20/23 Range/Units 06:13 06:48 WBC (3.8-10.6) k/uL RBC (4.30-5.90) m/uL Hgb (13.0-17.5) gm/dL Hct (39.0-53.0) % Neutrophils # (1.3-7.7) k/uL Lymphocytes # (1.0-4.8) k/uL INR (<1.2) APTT (22.0-30.0) sec ABG pH (7.35-7.45) ABG pCO2 (35-45) mmHg ABG pO2 (83-108) mmHg ABG HCO3 (21-25) mmol/L ABG O2 Saturation (94-97) % Sodium (137-145) mmol/L Potassium (3.5-5.1) mmol/L Chloride (98-107) mmol/L Carbon Dioxide (22-30) mmol/L BUN (9-20) mg/dL Creatinine (0.66-1.25) mg/dL Glucose (74-99) mg/dL POC Glucose (mg/dL) 121 H (70-110) mg/dL Hemoglobin A1c (<=6.0) % Plasma Lactic Acid Lior (0.7-2.0) mmol/L Calcium (8.4-10.2) mg/dL Ionized Calcium Rich 3.3 L* (4.5-5.3) mg/dL AST (17-59) U/L ALT (4-49) U/L Creatine Kinase (55-170) U/L Troponin I (0.000-0.034) ng/mL C-Reactive Protein (<1.0) mg/dL Total Protein (6.3-8.2) g/dL Albumin (3.5-5.0) g/dL Procalcitonin (0.02-0.09) ng/mL Urine Protein (Negative) Urine Ketones (Negative) Urine Blood (Negative) Urine WBC (0-5) /hpf Urine WBC Clumps (None) /hpf Urine Bacteria (None) /hpf Hyaline Casts (0-2) /lpf Urine Mucus (None) /hpf SARS-CoV-2 (PCR) (Not Detectd) Crossmatch Assessment and Plan (1) SIRS (systemic inflammatory response syndrome) Current Visit: Yes Status: Acute Code(s): R65.10 - SIRS OF NON-INFECTIOUS ORIGIN W/O ACUTE ORGAN DYSFUNCTION SNOMED Code(s): 042689874 Plan: 1patient presented to hospital with low blood sugar patient also complaining of bilateral lower extremity pain without any history of any trauma patient was noticed to have mottled bilateral lower extremity , Patient has been diagnosed with the critical ischemia to bilateral lower extremity with evidence of acute thrombosis of the bilateral popliteal and tibial and superficial femoral artery s/p open thrombectomy selective bilateral tibial artery angiogram and bilateral 4 compartment fasciotomy 2-leukocytosis more likely related to above 3-renal insufficiency high risk of nephrotoxicity 4-patient to continue with the cefepime empirically while waiting for the culture to finalize and continue with the nystatin powder to bilateral groin area Prognosis remains to be guarded Dictation was produced using [employer] software. please excuse any grammatical, word or spelling errors.
--- NOTE | 2023-10-20 23:07 | XR ---
EXAM: XR chest 1V portable CLINICAL INDICATION:Male, 72 years old with history of OG tube placement; [facility] COMPARISON: 10/20/2023 at 0538 hours TECHNIQUE: Chest single view. FINDINGS: Lines/tubes/devices: ET tube with its tip 5.6 cm above the luis. Left IJ central venous line with i ts tip over the region of the upper to mid right atrium. OG tube has been placed, traverses below the diaphragm, curves towards the left with the tip over the expected location of the proximal stomach. EKG leads and other extrinsic structures overlie the chest. Cardiomediastinum: Cardiac silhouette appears mildly enlarged. Atherosclerotic calcifications of the aorta with mild tortuosity. Pulmonary vasculature: No pulmonary vascular congestion. Lungs/pleura: Mild chronic coarsening of the interstitium again noted. Interval improved aeration of the lung bases , with improved bibasilar opacities. No acute consolidation, large effusion, or pneumothorax evident. Mild stable blunting of the right costophrenic angle could reflect small pleural effusion or thicken ing. Bones/soft tissues: Bony thorax appears grossly intact as seen. Moderate degenerative changes of the shoulders and spine. Multiple sternotomy wires are redemonstrated. Unremarkable regional soft tissues. IMPRESSION: 1. ET tube and left IJ central venous line in position as described. 2. New OG tube, with its tip over the expected location of the proximal stomach. This could be advan ana m several additional centimeters for more optimal positioning. 3. Mild cardiomegaly and postoperative changes. No evidence of decompensated CHF. 4. Improved aeration of the lung bases, with decreased bibasilar opacities.
[2023-10-20 23:33] LABS: Hepatitis B Surface Antigen Non-Reactive (Non-Reactive)
[2023-10-21 00:12] LABS: Glucose,Whole Blood 85 mg/dL (70-110)
[2023-10-21] MEDS ORDERED: SODIUM CHLORIDE 0.9% 1,000 ML IV ONE (01:42)
[2023-10-21] MEDS: NOREPINEPHRINE 8 MG in SODIUM CHLORIDE 0.9% 250 ML IV SCH ×2 (04:54→15:00)
[2023-10-21] MEDS: HEPARIN SOD,PORK IN 0.45% NACL 25,000 UNIT in 0.45% NACL 1 250ML.BAG IV SCH (04:56)
[2023-10-21 05:07] LABS: Basophils # (A) 0.1 k/uL (0-0.2); Basophils % (A) 0 %; Eosinophils % (A) 0 %; HGB 10.2 gm/dL (13.0-17.5); Lymphocytes # (A) 1.1 k/uL (1.0-4.8); Lymphocytes % (A) 6 %; MCH 29.4 pg (25.0-35.0); MCHC 34.1 g/dL (31.0-37.0); MCV 86.3 fL (80.0-100.0); Mean Platelet Volume 9.1; Monocytes # (A) 0.6 k/uL (0-1.0); Monocytes % (A) 3 %; Neutrophils # (A) 17.6 k/uL (1.3-7.7); Neutrophils % (A) 90 %; Platelet Count 155 k/uL (150-450); Poikilocytosis Slight; RBC 3.47 m/uL (4.30-5.90); RDW 15.5 % (11.5-15.5); WBC 19.6 k/uL (3.8-10.6)
[2023-10-21 05:39] LABS: Anion Gap 17 mmol/L; Blood Urea Nitrogen 49 mg/dL (9-20); Carbon Dioxide 14 mmol/L (22-30); Chloride 110 mmol/L (98-107); Glucose 57 mg/dL (74-99); Potassium 5.7 mmol/L (3.5-5.1); Sodium 141 mmol/L (137-145)
[2023-10-21 05:45] LABS: African American GFR (CKD) 11 (>60 ml/min/1.73 sqM); Non-African American GFR(CKD) 9 (>60 ml/min/1.73 sqM)
[2023-10-21 05:53] LABS: Hepatitis B Surface AB- Quant 3.5 mIU/mL
[2023-10-21 05:58] LABS: Glucose,Whole Blood 42 mg/dL (70-110)
[2023-10-21 05:58] LABS: Glucose,Whole Blood 43 mg/dL (70-110)
[2023-10-21] MEDS: DEXTROSE 50% SYRINGE 50 ML IVP PRN ×4 (06:01→19:31)
[2023-10-21 06:07] LABS: ABG Base Excess -5.3 mmol/L; ABG HCO3 20 mmol/L (21-25); ABG Oxygen Saturation 95.9 % (94-97); ABG PCO2 35 mmHg (35-45); ABG PH 7.37 (7.35-7.45); ABG PO2 82 mmHg (83-108); ABG TCO2 21 mmol/L (19-24)
[2023-10-21] MEDS ORDERED: CALCIUM GLUCONATE IN NACL 2 GM in SALINE 1 100ML.BAG IVPB ONE (06:16)
[2023-10-21 06:23] LABS: Glucose,Whole Blood 84 mg/dL (70-110)
[2023-10-21] MEDS: CHLORHEXIDINE GLUCONATE 15 ML CUP MUCOUS MEM SCH ×2 (08:22→20:38)
[2023-10-21] MEDS: PANTOPRAZOLE 40 MG/10 ML VIAL IV SCH (08:22)
[2023-10-21] MEDS: CEFEPIME 1 GM in SODIUM CHLORIDE 0.9% 50 ML IVPB SCH (08:23)
[2023-10-21] MEDS: NYSTATIN 100,000 UNIT/GM POWD 15 GM TOPICAL SCH ×2 (08:31→20:39)
--- NOTE | 2023-10-21 08:58 | XR ---
EXAMINATION TYPE: XR chest 1V portable DATE OF EXAM: 10/21/2023 5:28 AM CLINICAL INDICATION:Male, 72 years old with history of Patient on Ventillator; [facility] COMPARISON: Chest radiograph one day prior TECHNIQUE: XR chest 1V portable FINDINGS: Lungs/Pleura: Subsegmental atelectasis again noted in the lung bases. Suggestion of trace left pleura l effusion. No evidence of pneumothorax. Pulmonary vascularity: Unremarkable. Heart/mediastinum: Stable. Musculoskeletal: No acute osseous pathology. Median sternotomy wires are identified. Other findings: Endotracheal tube is present and in stable position. Left IJ central venous catheter is noted with tip expected in the right atria. Enteric tube can be seen coursing below the diaphragm and terminating in the stomach. IMPRESSION: Overall stable exam demonstrating subsegmental atelectasis and appropriately positioned support lines /tubes.
[2023-10-21 09:17] LABS: Glucose,Whole Blood 58 mg/dL (70-110)
[2023-10-21 09:43] LABS: Glucose,Whole Blood 89 mg/dL (70-110)
--- NOTE | 2023-10-21 12:34 | P.PN ---
Subjective Progress Note Date: 10/21/23 patient is 72-year-old gentleman who is currently in prison has a past medical history of Coronary Artery Disease status post CABG , Heart Failure, Diabetes Mellitus, Hyperlipidemia, Hypertension, Syncope, thyroid disease, CT of the brain in September 2017 demonstrated old right lacunar infarct, Bipolar, PTSD was brought to the ER for generalized weakness. Patient is a poor historian. Most of the history has been taken from electronic medical records and from the patient, patient stated that he was complaining of weakness this morning after waking up from sleep. Patient stated that his legs were heavy on him and was unable to lift them off. Denied any pain in lower extremities. Denied any fever or chills. There was no complain of nausea, vomiting abdominal pain. Snf staff checked on the patient and found his blood sugars to be low and he was given some dextrose which improved his blood sugars. Patient was recently in the hospital at which time he was diagnosed with COVID-19 infection and was also found to have colitis. Patient was brought to the ER Initial lab work done in the ER showed WBC 18, hemoglobin, platelet count 357, sodium 147, potassium 5.4, BUN 53, creatinine 7.47 , lactate 10.5, calcium 7.9, AST 243, ALT 78, [id number], troponin 0.055 Chest x-ray done in the ER showed low lung volumes, no acute cardiac process, COPD change In the ER, patient was found to have cold bilateral lower extremities, there was no pulses in lower extremities and there was mottling of the skin. Stat vascular surgery consult was requested and vascular surgery evaluated the patient recommended starting patient on heparin and initiating surgical intervention for acute bilateral lower extremity ischemia. Patient will be admitted to ICU 10/20. Patient seen and examined. Status post Open thrombectomy of bilateral popliteal, superficial femoral, and tibial arteries. Currently intubated and sedated. Patient is being started on nutrition by tube feeding. Currently on IV fentanyl, propofol and Levophed 10/21. Patient seen and examined. Lab work done this morning showed WBC 19.6, hemoglobin 10.2, sodium 141, potassium 5.7, BUN 49, creatinine 5.75. Continues to be intubated and sedated. Currently undergoing dialysis. Currently on IV Levophed, bicarb drip, cefepime, heparin, fentanyl. REVIEW OF SYSTEMS: Currently intubated and sedated PHYSICAL EXAMINATION: GENERAL: The patient is intubated and sedated, chronically ill-looking HEENT: Pupils are round and equally reacting to light. EOMI. No scleral icterus. No conjunctival pallor. Normocephalic, atraumatic. No pharyngeal erythema. No thyromegaly. CARDIOVASCULAR: S1 and S2 present. No murmurs, rubs, or gallops. PULMONARY: Diminished breath sounds at the bases bilaterally, no wheezing or crackles. ABDOMEN: Soft, nontender, nondistended, normoactive bowel sounds. No palpable organomegaly. MUSCULOSKELETAL: Bilateral lower extremity bandage seen at site of fasciotomies EXTREMITIES: No cyanosis, legs are warm NEUROLOGICAL: Intubated and sedated SKIN: No rashes. Assessment and plan Bilateral lower extremity critical limb ischemia.nhi class II Severe Sepsis Bilateral popliteal and tibial artery thrombosis Bilateral superficial femoral artery occlusions Acute hypoxic respiratory failure Lactic acidosis Acute kidney injury Rhabdomyolysis Hyperkalemia Hypoglycemia Rhabdomyolysis Elevated troponin COVID-19 infection Diabetes mellitus, with hyperglycemia Hypothyroidism Hypertension Hyperlipidemia History of osteoarthritis Hypothyroidism History of coronary artery disease status post CABG Hypocalcemia Monitor vital signs Monitor CBC Monitor CMP Continue telemetry monitoring Status post Open thrombectomy of bilateral popliteal, superficial femoral, and tibial arteries with stenting of left and right superficial femoral artery and Bilateral 4 compartment fasciotomy Follow-up on blood cultures Continue vent management per ICU Continue fentanyl and propofol. Currently on Levophed Continue bicarb drip continue pharmacy dose heparin Continue IV cefepime Vascular surgery following Critical care following ID following Nephrology is following Labs and medication were reviewed.. Continue same treatment. Continue with symptomatic treatment. Resume home medication. Monitor labs and vitals. DVT and GI prophylaxis. Further recommendations as per clinical course of the patient Dictation was produced using [employer] dictation software. please excuse any grammatical, word or spelling errors. Objective - Vital Signs Vital signs: Vital Signs Temp 99.8 F H 10/21/23 08:00 Pulse 85 10/21/23 09:45 Resp 27 H 10/21/23 09:45 BP 124/60 10/21/23 09:45 Pulse Ox 98 10/21/23 09:45 FiO2 50 10/21/23 08:00 Intake & Output 10/20/23 10/21/23 10/21/23 18:59 06:59 18:59 Intake Total 2174.345 2433.319 384.050 Output Total 1785 20 0 Balance 948.665 5387.319 384.050 Weight 113.4 kg 112.7 kg Intake: IV 500 1550 250 Calcium Gluconate in NaCl 100 2 gm In Saline 1 100ml. bag @ 100 mls/hr IVPB ONCE ONE Rx#:[id number] Dextrose 5% in Water 1, 500 550 150 000 ml @ 50 mls/hr IV . Q23H [facility] with Sodium Bicarb (1 Meq/ml) 150 ml Rx#:[id number] Sodium Chloride 0.9% 1, 1000 000 ml @ 999 mls/hr IV . Q1H1M ONE Rx#:[id number] Intake, IV Titration 644.345 883.319 134.050 Amount Heparin Sod,Pork in 0.45% 141.333 NaCl 25,000 unit In 0.45 % NaCl 1 250ml.bag @ 10. 254 UNITS/KG/HR 10 mls/hr IV .Q24H [facility] Rx#: [id number] Norepinephrine 8 mg In 393.333 543.626 85.484 Sodium Chloride 0.9% 250 ml @ 0.03 MCG/KG/MIN 5. 661 mls/hr IV .Q24H [facility] Rx#:[id number] Sodium Chloride 0.9% 100 100 ml @ 0 mls/hr IV .STK-MED ONE with ceFAZolin 2,000 mg Rx#:[id number] propofoL 1,000 mg In 151.012 198.36 48.566 Empty Bag 1 bag @ 15 MCG/ KG/MIN 8.777 mls/hr IV . [id number] [facility] Rx#:[id number] Tube Feeding 70 Hemodialysis 900 Other 60 Output: Urine 85 20 0 Hemodialysis 1700 Other: Voiding Method Indwelling Catheter Indwelling Catheter Indwelling Catheter ABP, PAP, CO, CI - Last Documented Arterial Blood Pressure 129/50 - Labs CBC & Chem 7: 10/21/23 04:50 10/21/23 04:50 Labs: Abnormal Lab Results - Last 24 Hours (Table) 10/20/23 10/20/23 10/20/23 Range/Units 13:50 14:31 20:11 WBC (3.8-10.6) k/uL RBC (4.30-5.90) m/uL Hgb (13.0-17.5) gm/dL Hct (39.0-53.0) % Neutrophils # (1.3-7.7) k/uL APTT (22.0-30.0) sec ABG pO2 73 L (83-108) mmHg ABG HCO3 (21-25) mmol/L ABG Lactic Acid 3.7 H* (0.5-1.6) mmol/L Potassium (3.5-5.1) mmol/L Chloride (98-107) mmol/L Carbon Dioxide (22-30) mmol/L BUN (9-20) mg/dL Creatinine (0.66-1.25) mg/dL Glucose (74-99) mg/dL POC Glucose (mg/dL) 67 L (70-110) mg/dL Plasma Lactic Acid Lior (0.7-2.0) mmol/L Calcium (8.4-10.2) mg/dL 10/20/23 10/20/23 10/21/23 Range/Units 20:59 21:01 00:21 WBC (3.8-10.6) k/uL RBC (4.30-5.90) m/uL Hgb (13.0-17.5) gm/dL Hct (39.0-53.0) % Neutrophils # (1.3-7.7) k/uL APTT (22.0-30.0) sec ABG pO2 (83-108) mmHg ABG HCO3 (21-25) mmol/L ABG Lactic Acid (0.5-1.6) mmol/L Potassium (3.5-5.1) mmol/L Chloride (98-107) mmol/L Carbon Dioxide (22-30) mmol/L BUN (9-20) mg/dL Creatinine (0.66-1.25) mg/dL Glucose (74-99) mg/dL POC Glucose (mg/dL) 62 L 206 H (70-110) mg/dL Plasma Lactic Acid Lior 7.5 H* (0.7-2.0) mmol/L Calcium (8.4-10.2) mg/dL 10/21/23 10/21/23 10/21/23 Range/Units 04:06 04:50 04:50 WBC 19.6 H (3.8-10.6) k/uL RBC 3.47 L (4.30-5.90) m/uL Hgb 10.2 L (13.0-17.5) gm/dL Hct 30.0 L (39.0-53.0) % Neutrophils # 17.6 H (1.3-7.7) k/uL APTT (22.0-30.0) sec ABG pO2 82 L (83-108) mmHg ABG HCO3 20 L (21-25) mmol/L ABG Lactic Acid (0.5-1.6) mmol/L Potassium 5.7 H (3.5-5.1) mmol/L Chloride 110 H (98-107) mmol/L Carbon Dioxide 14 L (22-30) mmol/L BUN 49 H (9-20) mg/dL Creatinine 5.75 H (0.66-1.25) mg/dL Glucose 57 L (74-99) mg/dL POC Glucose (mg/dL) (70-110) mg/dL Plasma Lactic Acid Lior (0.7-2.0) mmol/L Calcium 5.0 L* (8.4-10.2) mg/dL 10/21/23 10/21/23 10/21/23 Range/Units 04:50 05:55 05:56 WBC (3.8-10.6) k/uL RBC (4.30-5.90) m/uL Hgb (13.0-17.5) gm/dL Hct (39.0-53.0) % Neutrophils # (1.3-7.7) k/uL APTT 54.3 H (22.0-30.0) sec ABG pO2 (83-108) mmHg ABG HCO3 (21-25) mmol/L ABG Lactic Acid (0.5-1.6) mmol/L Potassium (3.5-5.1) mmol/L Chloride (98-107) mmol/L Carbon Dioxide (22-30) mmol/L BUN (9-20) mg/dL Creatinine (0.66-1.25) mg/dL Glucose (74-99) mg/dL POC Glucose (mg/dL) 42 L 43 L (70-110) mg/dL Plasma Lactic Acid Lior (0.7-2.0) mmol/L Calcium (8.4-10.2) mg/dL 10/21/23 Range/Units 09:15 WBC (3.8-10.6) k/uL RBC (4.30-5.90) m/uL Hgb (13.0-17.5) gm/dL Hct (39.0-53.0) % Neutrophils # (1.3-7.7) k/uL APTT (22.0-30.0) sec ABG pO2 (83-108) mmHg ABG HCO3 (21-25) mmol/L ABG Lactic Acid (0.5-1.6) mmol/L Potassium (3.5-5.1) mmol/L Chloride (98-107) mmol/L Carbon Dioxide (22-30) mmol/L BUN (9-20) mg/dL Creatinine (0.66-1.25) mg/dL Glucose (74-99) mg/dL POC Glucose (mg/dL) 58 L (70-110) mg/dL Plasma Lactic Acid Lior (0.7-2.0) mmol/L Calcium (8.4-10.2) mg/dL Microbiology - Last 24 Hours (Table) 10/19/23 12:34 Blood Culture - Preliminary Blood 10/19/23 12:23 Blood Culture - Preliminary Blood 10/19/23 11:41 Urine Culture - Final Urine,Voided
[2023-10-21 13:20] LABS: Glucose,Whole Blood 63 mg/dL (70-110)
[2023-10-21 14:04] LABS: Glucose,Whole Blood 110 mg/dL (70-110)
--- NOTE | 2023-10-21 14:33 | P.PN ---
Subjective Progress Note Date: 10/21/23 Principal diagnosis: Acute hypoxic respiratory failure secondary to sepsis, septic shock, rhabdomyolysis, and compartment syndrome of lower extremities secondary to critical limb ischemia and thromboses Patient was reevaluated today on 10/21/23, remains in the ICU, intubated and mechanically ventilated. Patient is on assist control rate of 24 tidal volume 400 FiO2 50% and PEEP of 5 ABG showed a pO2 of 82 pCO2 35 pH of 7.37 hence no changes were made today in his ventilator settings. Patient remains on norepinephrine at 0.2 mcg/kg/m, propofol at 35 mcg/kg/m, and he is also on heparin drip. Nutrition-nathan the patient will be started on Nepro today. He is still undergoing hemodialysis, and the plan is to remove 1.5 L of fluids today. Patient remains on bicarb drip 50 ML per hour with 3 A of bicarb in 1 L of D5W. Asked x-ray showed mostly right basilar atelectasis, proper position of the endotracheal tube in proper position of the orogastric tube noted. Labs today showed improvement of his leukocytosis WBC count of 19.6 hemoglobin is 10.2 PTT is therapeutic at 54, basic metabolic profile showed slight hyperkalemia that would be corrected by hemodialysis which would be done sometime in the next half hour. Patient continues to have poor blood flow down to the feet, but pulses are noted by Doppler. Even his left radial pulse was not palpable, and it is de tectable by Doppler obviously the patient is not ready for any form of weaning and I will not hold his sedation today, may consider sedation interruption and assessment of mental status and possible but the patient remains hemodynamically unstable I prefer not to do so at this point Objective - Vital Signs Vital signs: Vital Signs Temp 98.8 F 10/21/23 12:56 Pulse 90 10/21/23 12:56 Resp 17 10/21/23 12:56 BP 123/46 10/21/23 12:56 Pulse Ox 92 L 10/21/23 12:56 FiO2 50 10/21/23 12:56 Intake & Output 10/20/23 10/21/23 10/21/23 18:59 06:59 18:59 Intake Total 2174.345 2433.319 1001.052 Output Total 1785 20 1910 Balance 352.873 8408.319 -908.948 Weight 113.4 kg 112.7 kg Intake: IV 500 1550 400 Calcium Gluconate in NaCl 100 2 gm In Saline 1 100ml. bag @ 100 mls/hr IVPB ONCE ONE Rx#:[id number] Dextrose 5% in Water 1, 500 550 300 000 ml @ 50 mls/hr IV . Q23H [facility] with Sodium Bicarb (1 Meq/ml) 150 ml Rx#:[id number] Sodium Chloride 0.9% 1, 1000 000 ml @ 999 mls/hr IV . Q1H1M ONE Rx#:[id number] Intake, IV Titration 644.345 883.319 201.052 Amount Heparin Sod,Pork in 0.45% 141.333 NaCl 25,000 unit In 0.45 % NaCl 1 250ml.bag @ 10. 254 UNITS/KG/HR 10 mls/hr IV .Q24H [facility] Rx#: [id number] Norepinephrine 8 mg In 393.333 543.626 101.052 Sodium Chloride 0.9% 250 ml @ 0.03 MCG/KG/MIN 5. 661 mls/hr IV .Q24H [facility] Rx#:[id number] Sodium Chloride 0.9% 100 100 ml @ 0 mls/hr IV .STK-MED ONE with ceFAZolin 2,000 mg Rx#:[id number] propofoL 1,000 mg In 151.012 198.36 100.000 Empty Bag 1 bag @ 15 MCG/ KG/MIN 8.777 mls/hr IV . [id number] [facility] Rx#:[id number] Tube Feeding 70 Hemodialysis 900 400 Other 60 Output: Urine 85 20 10 Hemodialysis 1700 1900 Other: Voiding Method Indwelling Catheter Indwelling Catheter Indwelling Catheter ABP, PAP, CO, CI - Last Documented Arterial Blood Pressure 127/47 - Exam Physical Exam: Revealed 72-year-old white male intubated mechanically ventilated, sedated, on propofol, Head: Atraumatic, normocephalic. Endotracheal tube and orogastric tube are intact HEENT:[Neck is supple.] [No neck masses.] [No thyromegaly.] [No JVD.] Chest: [Course of breath sound bilaterally, symmetrical chest expansion. Cardiac Exam: [Normal S1 and S2, no S3 gallop, no murmur.] Abdomen: [Soft, nontender, no megaly, no rebound, no guarding, normal bowel sounds.] Extremities: Both lower extremities are wrapped, and according to the vascular surgeon patient has significant improvement already in her mottling evidence of ischemia noted to toes, and the patient had bluish discoloration of the tips of the fingers on the left hand hence the arterial line from the left radial artery was removed. Yesterday. Patient has a dialysis catheter in the left groin and a wound VAC in the right groin. Neurological Exam: Could not assess patient is sedated on propofol. - Labs CBC & Chem 7: 10/21/23 04:50 10/21/23 04:50 Labs: Abnormal Lab Results - Last 24 Hours (Table) 10/20/23 10/20/23 10/20/23 Range/Units 13:50 14:31 20:11 WBC (3.8-10.6) k/uL RBC (4.30-5.90) m/uL Hgb (13.0-17.5) gm/dL Hct (39.0-53.0) % Neutrophils # (1.3-7.7) k/uL APTT (22.0-30.0) sec ABG pO2 73 L (83-108) mmHg ABG HCO3 (21-25) mmol/L ABG Lactic Acid 3.7 H* (0.5-1.6) mmol/L Potassium (3.5-5.1) mmol/L Chloride (98-107) mmol/L Carbon Dioxide (22-30) mmol/L BUN (9-20) mg/dL Creatinine (0.66-1.25) mg/dL Glucose (74-99) mg/dL POC Glucose (mg/dL) 67 L (70-110) mg/dL Plasma Lactic Acid Lior (0.7-2.0) mmol/L Calcium (8.4-10.2) mg/dL 10/20/23 10/20/23 10/21/23 Range/Units 20:59 21:01 00:21 WBC (3.8-10.6) k/uL RBC (4.30-5.90) m/uL Hgb (13.0-17.5) gm/dL Hct (39.0-53.0) % Neutrophils # (1.3-7.7) k/uL APTT (22.0-30.0) sec ABG pO2 (83-108) mmHg ABG HCO3 (21-25) mmol/L ABG Lactic Acid (0.5-1.6) mmol/L Potassium (3.5-5.1) mmol/L Chloride (98-107) mmol/L Carbon Dioxide (22-30) mmol/L BUN (9-20) mg/dL Creatinine (0.66-1.25) mg/dL Glucose (74-99) mg/dL POC Glucose (mg/dL) 62 L 206 H (70-110) mg/dL Plasma Lactic Acid Lior 7.5 H* (0.7-2.0) mmol/L Calcium (8.4-10.2) mg/dL 10/21/23 10/21/23 10/21/23 Range/Units 04:06 04:50 04:50 WBC 19.6 H (3.8-10.6) k/uL RBC 3.47 L (4.30-5.90) m/uL Hgb 10.2 L (13.0-17.5) gm/dL Hct 30.0 L (39.0-53.0) % Neutrophils # 17.6 H (1.3-7.7) k/uL APTT (22.0-30.0) sec ABG pO2 82 L (83-108) mmHg ABG HCO3 20 L (21-25) mmol/L ABG Lactic Acid (0.5-1.6) mmol/L Potassium 5.7 H (3.5-5.1) mmol/L Chloride 110 H (98-107) mmol/L Carbon Dioxide 14 L (22-30) mmol/L BUN 49 H (9-20) mg/dL Creatinine 5.75 H (0.66-1.25) mg/dL Glucose 57 L (74-99) mg/dL POC Glucose (mg/dL) (70-110) mg/dL Plasma Lactic Acid Lior (0.7-2.0) mmol/L Calcium 5.0 L* (8.4-10.2) mg/dL 10/21/23 10/21/23 10/21/23 Range/Units 04:50 05:55 05:56 WBC (3.8-10.6) k/uL RBC (4.30-5.90) m/uL Hgb (13.0-17.5) gm/dL Hct (39.0-53.0) % Neutrophils # (1.3-7.7) k/uL APTT 54.3 H (22.0-30.0) sec ABG pO2 (83-108) mmHg ABG HCO3 (21-25) mmol/L ABG Lactic Acid (0.5-1.6) mmol/L Potassium (3.5-5.1) mmol/L Chloride (98-107) mmol/L Carbon Dioxide (22-30) mmol/L BUN (9-20) mg/dL Creatinine (0.66-1.25) mg/dL Glucose (74-99) mg/dL POC Glucose (mg/dL) 42 L 43 L (70-110) mg/dL Plasma Lactic Acid Lior (0.7-2.0) mmol/L Calcium (8.4-10.2) mg/dL 10/21/23 10/21/23 Range/Units 09:15 13:19 WBC (3.8-10.6) k/uL RBC (4.30-5.90) m/uL Hgb (13.0-17.5) gm/dL Hct (39.0-53.0) % Neutrophils # (1.3-7.7) k/uL APTT (22.0-30.0) sec ABG pO2 (83-108) mmHg ABG HCO3 (21-25) mmol/L ABG Lactic Acid (0.5-1.6) mmol/L Potassium (3.5-5.1) mmol/L Chloride (98-107) mmol/L Carbon Dioxide (22-30) mmol/L BUN (9-20) mg/dL Creatinine (0.66-1.25) mg/dL Glucose (74-99) mg/dL POC Glucose (mg/dL) 58 L 63 L (70-110) mg/dL Plasma Lactic Acid Lior (0.7-2.0) mmol/L Calcium (8.4-10.2) mg/dL Microbiology - Last 24 Hours (Table) 10/19/23 12:34 Blood Culture - Preliminary Blood 10/19/23 12:23 Blood Culture - Preliminary Blood 10/19/23 11:41 Urine Culture - Final Urine,Voided Assessment and Plan Assessment: Impression: Acute hypoxic respiratory failure secondary to sepsis, septic shock, rhabdomyolysis, and compartment syndrome of lower extremities secondary to critical limb ischemia and thromboses, blood cultures so far remain negative no growth in the last 24 hours Bilateral lower extremity critical limb ischemia.nhi class II Bilateral popliteal and tibial artery thrombosis Bilateral superficial femoral artery occlusions Acute rhabdomyolysis Acute renal failure/acute tubular necrosis, presently on hemodialysis Acute metabolic acidosis/I am Metabolic acidosis, remains on bicarb drip, improving History of coronary artery disease, previous MS Type 2 diabetes Bilateral lower extremity cellulitis Acute sepsis and septic shock most likely source would be his cellulitis History of recent colitis Recent COVID-19 infection Bilateral groin candidiasis Status post:Open thrombectomy of bilateral popliteal, superficial femoral, and tibial arteries Selective bilateral tibial artery angiogram with retrograde femoral angiogram Open right common femoral artery cutdown Right femoral artery access with 6F sheath Left lower extremity angiogram Left superficial femoral artery balloon angioplasty Left transluminal stenting of the superficial femoral artery Selective right lower extremity angiogram Right superficial femoral artery balloon angioplasty Right transluminal stenting of the superficial femoral artery Bilateral 4 compartment fasciotomy Ultrasound-guided left common femoral vein temporary hemodialysis catheter placement Recommendation: Continue ventilatory support, patient is not ready for any form of weaning No changes recommended in the vent settings based on the ABG today Continue bicarb drip Continue hemodynamic support, continue norepinephrine presently at 0.2 mcg/kg/m Heart patient on nutritional support/Nepro via orogastric tube Continue hemodialysis Continue antibiotics, patient received vancomycin initially and he is now on cefepime, cultures are pending check blood cultures Continue to monitor daily labs Continue GI and DVT prophylaxis Continue to follow with multiple consultants on the case including vascular surgery, nephrology, infectious disease Critical care time is over 30 minutes Overall prognosis remains extremely poor and guarded Time with Patient: Greater than 30
--- NOTE | 2023-10-21 14:35 | P.PN ---
Subjective Progress Note Date: 10/21/23 Follow-up for acute kidney injury on dialysis. Had dialysis yesterday and today. Still oliguric. On ventilator 50% FiO2. He is also on pressors. Objective - Vital Signs Vital signs: Vital Signs Temp 98.8 F 10/21/23 12:56 Pulse 90 10/21/23 12:56 Resp 17 10/21/23 12:56 BP 123/46 10/21/23 12:56 Pulse Ox 92 L 10/21/23 12:56 FiO2 50 10/21/23 14:29 Intake & Output 10/20/23 10/21/23 10/21/23 18:59 06:59 18:59 Intake Total 2174.345 2433.319 1001.052 Output Total 1785 20 1910 Balance 149.250 3183.319 -908.948 Weight 113.4 kg 112.7 kg Intake: IV 500 1550 400 Calcium Gluconate in NaCl 100 2 gm In Saline 1 100ml. bag @ 100 mls/hr IVPB ONCE ONE Rx#:[id number] Dextrose 5% in Water 1, 500 550 300 000 ml @ 50 mls/hr IV . Q23H [facility] with Sodium Bicarb (1 Meq/ml) 150 ml Rx#:[id number] Sodium Chloride 0.9% 1, 1000 000 ml @ 999 mls/hr IV . Q1H1M ONE Rx#:[id number] Intake, IV Titration 644.345 883.319 201.052 Amount Heparin Sod,Pork in 0.45% 141.333 NaCl 25,000 unit In 0.45 % NaCl 1 250ml.bag @ 10. 254 UNITS/KG/HR 10 mls/hr IV .Q24H [facility] Rx#: [id number] Norepinephrine 8 mg In 393.333 543.626 101.052 Sodium Chloride 0.9% 250 ml @ 0.03 MCG/KG/MIN 5. 661 mls/hr IV .Q24H [facility] Rx#:[id number] Sodium Chloride 0.9% 100 100 ml @ 0 mls/hr IV .STK-MED ONE with ceFAZolin 2,000 mg Rx#:[id number] propofoL 1,000 mg In 151.012 198.36 100.000 Empty Bag 1 bag @ 15 MCG/ KG/MIN 8.777 mls/hr IV . [id number] [facility] Rx#:[id number] Tube Feeding 70 Hemodialysis 900 400 Other 60 Output: Urine 85 20 10 Hemodialysis 1700 1900 Other: Voiding Method Indwelling Catheter Indwelling Catheter Indwelling Catheter ABP, PAP, CO, CI - Last Documented Arterial Blood Pressure 127/47 - Exam No acute distress Intubated and sedated S1-S2 heard Decreased breath sounds Edema - Labs CBC & Chem 7: 10/21/23 04:50 10/21/23 04:50 Labs: Abnormal Lab Results - Last 24 Hours (Table) 10/20/23 10/20/23 10/20/23 Range/Units 14:31 20:11 20:59 WBC (3.8-10.6) k/uL RBC (4.30-5.90) m/uL Hgb (13.0-17.5) gm/dL Hct (39.0-53.0) % Neutrophils # (1.3-7.7) k/uL APTT (22.0-30.0) sec ABG pO2 73 L (83-108) mmHg ABG HCO3 (21-25) mmol/L Potassium (3.5-5.1) mmol/L Chloride (98-107) mmol/L Carbon Dioxide (22-30) mmol/L BUN (9-20) mg/dL Creatinine (0.66-1.25) mg/dL Glucose (74-99) mg/dL POC Glucose (mg/dL) 67 L 62 L (70-110) mg/dL Plasma Lactic Acid Lior (0.7-2.0) mmol/L Calcium (8.4-10.2) mg/dL 10/20/23 10/21/23 10/21/23 Range/Units 21:01 00:21 04:06 WBC (3.8-10.6) k/uL RBC (4.30-5.90) m/uL Hgb (13.0-17.5) gm/dL Hct (39.0-53.0) % Neutrophils # (1.3-7.7) k/uL APTT (22.0-30.0) sec ABG pO2 82 L (83-108) mmHg ABG HCO3 20 L (21-25) mmol/L Potassium (3.5-5.1) mmol/L Chloride (98-107) mmol/L Carbon Dioxide (22-30) mmol/L BUN (9-20) mg/dL Creatinine (0.66-1.25) mg/dL Glucose (74-99) mg/dL POC Glucose (mg/dL) 206 H (70-110) mg/dL Plasma Lactic Acid Lior 7.5 H* (0.7-2.0) mmol/L Calcium (8.4-10.2) mg/dL 10/21/23 10/21/23 10/21/23 Range/Units 04:50 04:50 04:50 WBC 19.6 H (3.8-10.6) k/uL RBC 3.47 L (4.30-5.90) m/uL Hgb 10.2 L (13.0-17.5) gm/dL Hct 30.0 L (39.0-53.0) % Neutrophils # 17.6 H (1.3-7.7) k/uL APTT 54.3 H (22.0-30.0) sec ABG pO2 (83-108) mmHg ABG HCO3 (21-25) mmol/L Potassium 5.7 H (3.5-5.1) mmol/L Chloride 110 H (98-107) mmol/L Carbon Dioxide 14 L (22-30) mmol/L BUN 49 H (9-20) mg/dL Creatinine 5.75 H (0.66-1.25) mg/dL Glucose 57 L (74-99) mg/dL POC Glucose (mg/dL) (70-110) mg/dL Plasma Lactic Acid Lior (0.7-2.0) mmol/L Calcium 5.0 L* (8.4-10.2) mg/dL 10/21/23 10/21/23 10/21/23 Range/Units 05:55 05:56 09:15 WBC (3.8-10.6) k/uL RBC (4.30-5.90) m/uL Hgb (13.0-17.5) gm/dL Hct (39.0-53.0) % Neutrophils # (1.3-7.7) k/uL APTT (22.0-30.0) sec ABG pO2 (83-108) mmHg ABG HCO3 (21-25) mmol/L Potassium (3.5-5.1) mmol/L Chloride (98-107) mmol/L Carbon Dioxide (22-30) mmol/L BUN (9-20) mg/dL Creatinine (0.66-1.25) mg/dL Glucose (74-99) mg/dL POC Glucose (mg/dL) 42 L 43 L 58 L (70-110) mg/dL Plasma Lactic Acid Lior (0.7-2.0) mmol/L Calcium (8.4-10.2) mg/dL 10/21/23 Range/Units 13:19 WBC (3.8-10.6) k/uL RBC (4.30-5.90) m/uL Hgb (13.0-17.5) gm/dL Hct (39.0-53.0) % Neutrophils # (1.3-7.7) k/uL APTT (22.0-30.0) sec ABG pO2 (83-108) mmHg ABG HCO3 (21-25) mmol/L Potassium (3.5-5.1) mmol/L Chloride (98-107) mmol/L Carbon Dioxide (22-30) mmol/L BUN (9-20) mg/dL Creatinine (0.66-1.25) mg/dL Glucose (74-99) mg/dL POC Glucose (mg/dL) 63 L (70-110) mg/dL Plasma Lactic Acid Lior (0.7-2.0) mmol/L Calcium (8.4-10.2) mg/dL Microbiology - Last 24 Hours (Table) 10/19/23 12:34 Blood Culture - Preliminary Blood 10/19/23 12:23 Blood Culture - Preliminary Blood 10/19/23 11:41 Urine Culture - Final Urine,Voided Assessment and Plan Assessment: #1 acute kidney injury multifactorial ATN. -Hypotension/rhabdomyolysis -Baseline creatinine 0.8 MG per DL #2 shock on pressors. #3 rhabdomyolysis status post fasciotomy #4 hyperkalemia secondary to acute kidney injury #5 metabolic acidosis secondary to acute kidney injury #6 ventilator dependent respiratory failure Plan: #1 hemodialysis yesterday and today for solute clearance, hyperkalemia and acidosis. #2 plan again tomorrow #3 monitor for renal recovery #4 ween off pressors and ventilator
[2023-10-21 15:22] LABS: ABG Base Excess -2.8 mmol/L; ABG HCO3 22 mmol/L (21-25); ABG Oxygen Saturation 85.7 % (94-97); ABG PCO2 36 mmHg (35-45); ABG PH 7.39 (7.35-7.45); ABG TCO2 23 mmol/L (19-24)
[2023-10-21 15:25] LABS: ABG PO2 52 mmHg (83-108); Allen Test Performed? no
--- NOTE | 2023-10-21 17:03 | XR ---
EXAMINATION TYPE: XR chest 1V portable DATE OF EXAM: 10/21/2023 3:52 PM CLINICAL INDICATION:Male, 72 years old with history of desat, increase 02 demand; COMPARISON: Chest radiographs from same day TECHNIQUE: XR chest 1V portable Frontal view of the chest. FINDINGS: Lungs/Pleura: Low lung volumes are present. Flattening of the diaphragms. Increased lucency along api martha. There is no evidence of pleural effusion, focal consolidation, or pneumothorax. Pulmonary vascularity: Unremarkable. Heart/mediastinum: Cardiomediastinal silhouette is enlarged and stable. Musculoskeletal: No acute osseous pathology. Other findings: None Lines/Tubes: Endotracheal tube with distal tip 3.4 cm above the luis. Nasogastric tube with its distal tip and side-port projecting under the diaphragm and projecting over the gastric lumen. Left internal jugular central venous catheter with distal tip at the cavoatrial junction. IMPRESSION: 1. No significant change from 10/21/2023 earlier in the day, support line and tubes in appropriate p osition. 2. COPD changes.
[2023-10-21] MEDS: DEXTROSE 5% IN WATER 1,000 ML with SODIUM BICARB (1 MEQ/ML) 150 ML IV SCH (17:39)
[2023-10-21] MEDS: SODIUM CHLORIDE 0.9% 80 ML with fentaNYL (PF) 1,000 MCG IV SCH ×2 (18:02)
[2023-10-21 19:29] LABS: Glucose,Whole Blood 69 mg/dL (70-110)
[2023-10-21 20:35] LABS: Glucose,Whole Blood 89 mg/dL (70-110)
[2023-10-21 23:40] LABS: Glucose,Whole Blood 90 mg/dL (70-110)
[2023-10-22] MEDS: NOREPINEPHRINE 8 MG in SODIUM CHLORIDE 0.9% 250 ML IV SCH ×3 (01:09→23:59)
--- NOTE | 2023-10-22 02:02 | XR ---
EXAM: XR Chest, 1 View CLINICAL HISTORY: ITS.REASON XR Reason: possible aspiration, new OGT TECHNIQUE: Frontal view of the chest. COMPARISON: CXR October 21, 2023. FINDINGS: Lungs: Unremarkable. No consolidation. Pleural space: Small RIGHT pleural effusion. No pneumothorax. Heart: Cardiomegaly. Mediastinum: Unremarkable. Normal mediastinal contour. Bones/joints: Unremarkable. No acute fracture. Tubes, lines and devices: Endotracheal tube terminates 4.7 cm above the luis. Feeding tube terminates below the diaphragm, likely in the stomach. LEFT IJ catheter terminates in the RIGHT atrium. IMPRESSION: 1. Endotracheal tube terminates 4.7 cm above the luis. 2. Feeding tube terminates below the diaphragm, likely in the stomach. 3. Small RIGHT pleural effusion. 4. LEFT IJ catheter terminates in the RIGHT atrium.
[2023-10-22] MEDS: DEXTROSE 5% IN WATER 1,000 ML with SODIUM BICARB (1 MEQ/ML) 150 ML IV SCH ×2 (04:09→18:36)
[2023-10-22 05:10] LABS: Glucose,Whole Blood 90 mg/dL (70-110)
[2023-10-22 05:46] LABS: ABG Base Excess -2.4 mmol/L; ABG HCO3 23 mmol/L (21-25); ABG PCO2 40 mmHg (35-45); ABG PH 7.36 (7.35-7.45); ABG PO2 101 mmHg (83-108); ABG TCO2 24 mmol/L (19-24); Allen Test Performed? Yes
[2023-10-22 05:48] LABS: HCT 28.5 % (39.0-53.0); HGB 9.7 gm/dL (13.0-17.5); MCH 29.6 pg (25.0-35.0); MCHC 33.9 g/dL (31.0-37.0); MCV 87.2 fL (80.0-100.0); Mean Platelet Volume 8.9; Platelet Count 129 k/uL (150-450); RBC 3.27 m/uL (4.30-5.90); RDW 15.3 % (11.5-15.5); WBC 22.3 k/uL (3.8-10.6)
[2023-10-22] MEDS: SODIUM CHLORIDE 0.9% 80 ML with fentaNYL (PF) 1,000 MCG IV SCH ×4 (06:10→23:24)
[2023-10-22 06:33] LABS: ALT 127 U/L (4-49); Albumin 2.2 g/dL (3.5-5.0); Alkaline Phosphatase 93 U/L (38-126); Anion Gap 17 mmol/L; Blood Urea Nitrogen 45 mg/dL (9-20); Carbon Dioxide 19 mmol/L (22-30); Chloride 100 mmol/L (98-107); Glucose 68 mg/dL (74-99); Sodium 136 mmol/L (137-145); Total Bilirubin 0.5 mg/dL (0.2-1.3); Total Protein 4.8 g/dL (6.3-8.2)
[2023-10-22 06:38] LABS: African American GFR (CKD) 12 (>60 ml/min/1.73 sqM); Non-African American GFR(CKD) 10 (>60 ml/min/1.73 sqM)
[2023-10-22 07:22] LABS: AST 1195 U/L (17-59)
[2023-10-22] MEDS ORDERED: FUROSEMIDE 10 MG/ML 10 ML VIAL IV STA (08:52)
--- NOTE | 2023-10-22 09:12 | P.PN ---
Subjective Patient is seen in follow-up for acute kidney injury. Started on hemodialysis 10/20/2023. Oliguric. Intubated. On Levophed. Receiving tube feeds. Vital signs are stable. On vasopressor support. General: Resting in bed. HEENT: Intubated. LUNGS: Scattered rhonchi. HEART: Rate and Rhythm are regular. ABDOMEN: No distention. EXTREMITITES: Lower extremities wrapped. Objective - Vital Signs Vital signs: Vital Signs Temp 36.3 F L 10/22/23 05:15 Pulse 80 10/22/23 07:00 Resp 18 10/22/23 07:00 BP 124/64 10/22/23 07:00 Pulse Ox 97 10/22/23 07:00 FiO2 90 10/22/23 07:57 Intake & Output 10/21/23 10/22/23 10/22/23 18:59 06:59 18:59 Intake Total 9666.705 6387.266 60 Output Total 1920 15 0 Balance -018.648 0704.266 60 Weight 112.7 kg 115.3 kg Intake: IV 700 730 60 Calcium Gluconate in NaCl 100 2 gm In Saline 1 100ml. bag @ 100 mls/hr IVPB ONCE ONE Rx#:[id number] Dextrose 5% in Water 1, 600 600 50 000 ml @ 50 mls/hr IV . Q23H JOLYNN with Sodium Bicarb (1 Meq/ml) 150 ml Rx#:[id number] Sodium Chloride 0.9% @ 10 130 10 Intake, IV Titration 485.129 640.266 Amount Norepinephrine 8 mg In 274.889 303.573 Sodium Chloride 0.9% 250 ml @ 0.03 MCG/KG/MIN 5. 661 mls/hr IV .Q24H JOLYNN Rx#:[id number] Sodium Chloride 0.9% 80 0 59.162 ml @ 0.5 MCG/KG/HR 4.876 mls/hr IV .[id number] JOLYNN with fentaNYL (PF) 1,000 mcg Rx#:[id number] propofoL 1,000 mg In 210.240 277.531 Empty Bag 1 bag @ 15 MCG/ KG/MIN 8.777 mls/hr IV . [id number] JOLYNN Rx#:[id number] Tube Feeding 60 20 Hemodialysis 400 Output: Urine 20 15 0 Hemodialysis 1900 Other: Voiding Method Indwelling Catheter Indwelling Catheter ABP, PAP, CO, CI - Last Documented Arterial Blood Pressure 121/45 - Labs CBC & Chem 7: 10/22/23 05:00 10/22/23 05:00 Labs: Abnormal Lab Results - Last 24 Hours (Table) 10/21/23 10/21/23 10/21/23 Range/Units 09:15 13:19 15:21 WBC (3.8-10.6) k/uL RBC (4.30-5.90) m/uL Hgb (13.0-17.5) gm/dL Hct (39.0-53.0) % Plt Count (150-450) k/uL APTT (22.0-30.0) sec ABG pO2 52 L* (83-108) mmHg ABG O2 Saturation 85.7 L (94-97) % Sodium (137-145) mmol/L Carbon Dioxide (22-30) mmol/L BUN (9-20) mg/dL Creatinine (0.66-1.25) mg/dL Glucose (74-99) mg/dL POC Glucose (mg/dL) 58 L 63 L (70-110) mg/dL Calcium (8.4-10.2) mg/dL AST (17-59) U/L ALT (4-49) U/L Creatine Kinase (55-170) U/L Total Protein (6.3-8.2) g/dL Albumin (3.5-5.0) g/dL 10/21/23 10/22/23 10/22/23 Range/Units 19:28 05:00 05:00 WBC 22.3 H (3.8-10.6) k/uL RBC 3.27 L (4.30-5.90) m/uL Hgb 9.7 L (13.0-17.5) gm/dL Hct 28.5 L (39.0-53.0) % Plt Count 129 L (150-450) k/uL APTT (22.0-30.0) sec ABG pO2 (83-108) mmHg ABG O2 Saturation (94-97) % Sodium 136 L (137-145) mmol/L Carbon Dioxide 19 L (22-30) mmol/L BUN 45 H (9-20) mg/dL Creatinine 5.22 H (0.66-1.25) mg/dL Glucose 68 L (74-99) mg/dL POC Glucose (mg/dL) 69 L (70-110) mg/dL Calcium 5.0 L* (8.4-10.2) mg/dL AST 1195 H (17-59) U/L ALT 127 H (4-49) U/L Creatine Kinase 82239 H* (55-170) U/L Total Protein 4.8 L (6.3-8.2) g/dL Albumin 2.2 L (3.5-5.0) g/dL 10/22/23 Range/Units 05:00 WBC (3.8-10.6) k/uL RBC (4.30-5.90) m/uL Hgb (13.0-17.5) gm/dL Hct (39.0-53.0) % Plt Count (150-450) k/uL APTT 60.5 H (22.0-30.0) sec ABG pO2 (83-108) mmHg ABG O2 Saturation (94-97) % Sodium (137-145) mmol/L Carbon Dioxide (22-30) mmol/L BUN (9-20) mg/dL Creatinine (0.66-1.25) mg/dL Glucose (74-99) mg/dL POC Glucose (mg/dL) (70-110) mg/dL Calcium (8.4-10.2) mg/dL AST (17-59) U/L ALT (4-49) U/L Creatine Kinase (55-170) U/L Total Protein (6.3-8.2) g/dL Albumin (3.5-5.0) g/dL Microbiology - Last 24 Hours (Table) 10/19/23 12:34 Blood Culture - Preliminary Blood 10/19/23 12:23 Blood Culture - Preliminary Blood 10/21/23 04:30 Gram Stain - Preliminary Sputum Assessment and Plan Plan: Assessment: 1. Acute kidney injury secondary to ATN secondary to septic shock/rhabdomyolysis. Baseline creatinine 0.8 and 7.47 this admission. Started on hemodialysis 10/20/2023. Has left femoral catheter. No hydronephrosis noted on kidney ultrasound. 2. Acute COVID-19 infection. 3. Rhabdomyolysis [place] [address] today. 4. Shock maintained on Levophed. 5. Metabolic acidosis secondary to acute kidney injury maintain on bicarb drip. 6. Hypocalcemia secondary to acute kidney injury, rhabdomyolysis. 7. Hyperkalemia secondary to acute kidney injury. Improved postdialysis. Plan: Hemodialysis today. Lasix 80 mg IV once today. Increase rate of bicarb drip to 75 mL an hour. Replace calcium. Check phosphorus level. Repeat CK level in AM. Maintain tube feeds. Wean FiO2 and vasopressors. Monitor for renal recovery.
[2023-10-22] MEDS ORDERED: CALCIUM GLUCONATE IN NACL 2 GM in SALINE 1 100ML.BAG IVPB ONE (09:15)
[2023-10-22] MEDS: PANTOPRAZOLE 40 MG/10 ML VIAL IV SCH (09:57)
[2023-10-22] MEDS: NYSTATIN 100,000 UNIT/GM POWD 15 GM TOPICAL SCH ×2 (10:00→20:25)
[2023-10-22] MEDS: CEFEPIME 1 GM in SODIUM CHLORIDE 0.9% 50 ML IVPB SCH (10:25)
[2023-10-22] MEDS: CHLORHEXIDINE GLUCONATE 15 ML CUP MUCOUS MEM SCH ×2 (10:35→20:25)
[2023-10-22 11:28] VITALS: BMI 34.4
--- NOTE | 2023-10-22 11:31 | P.PN ---
Subjective Progress Note Date: 10/22/23 Principal diagnosis: Respiratory failure. Acute hypoxic respiratory failure secondary to sepsis, septic shock, rhabdomyolysis, and compartment syndrome of lower extremities secondary to critical limb ischemia and thromboses Patient was reevaluated today on 10/21/23, remains in the ICU, intubated and mechanically ventilated. Patient is on assist control rate of 24 tidal volume 400 FiO2 50% and PEEP of 5 ABG showed a pO2 of 82 pCO2 35 pH of 7.37 hence no changes were made today in his ventilator settings. Patient remains on norepinephrine at 0.2 mcg/kg/m, propofol at 35 mcg/kg/m, and he is also on heparin drip. Nutrition-nathan the patient will be started on Nepro today. He is still undergoing hemodialysis, and the plan is to remove 1.5 L of fluids today. Patient remains on bicarb drip 50 ML per hour with 3 A of bicarb in 1 L of D5W. Asked x-ray showed mostly right basilar atelectasis, proper position of the endotracheal tube in proper position of the orogastric tube noted. Labs today showed improvement of his leukocytosis WBC count of 19.6 hemoglobin is 10.2 PTT is therapeutic at 54, basic metabolic profile showed slight hyperkalemia that would be corrected by hemodialysis which would be done sometime in the next half hour. Patient continues to have poor blood flow down to the feet, but pulses are noted by Doppler. Even his left radial pulse was not palpable, and it is detectable by Doppler obviously the patient is not ready for any form of weaning and I will not hold his sedation today, may consider sedation interruption and assessment of mental status and possible but the patient remains hemodynamically unstable I prefer not to do so at this point Progress note dated 10/22/2023. This is a 72-year-old male who was admitted to the hospital on October 19, for systemic inflammatory response syndrome and rhabdomyolysis. The patient came to the intensive care unit, on the , and was intubated on the . The patient remains on mechanical ventilator. He is on the volume assist control, rate 24, tidal volume 400, FiO2 90%, and PEEP of 10. Blood gases show pO2 101, pCO2 40, and a pH is 7.36. The FiO2 was dropped down to 80%, but the patient desaturated, and so the patient was placed on a PEEP of 15. Currently, the patient is on D5W with 3 ampules of sodium bicarbonate at 75 mL an hour, heparin via weightbase protocol, propofol at 50 mcg/kg/m, fentanyl at 0.5 mcg/kg/h, norepinephrine at 15 mcg/m, and tube feedings with Nepro at 10 mL an hour. The patient had an extensive vascular procedure/thrombectomy. White count was 22.3, hemoglobin 9.7, hematocrit 28.5, and platelet count is 129,000. Sodium 136, potassium 5, chlorides 100, CO2 19, anion gap 17, BUN 45, and creatinine 5.22. The patient's CK is 56,363. AST is 1195, and ALT is 127. Calcium is 5.0. Albumin is 2.2. Blood urine and sputum cultures are thus far negative. Chest x-ray shows proper placement of the endotracheal tube, and other catheters, and a small right pleural effusion. Objective - Vital Signs Vital signs: Vital Signs Temp 36.3 F L 10/22/23 05:15 Pulse 80 10/22/23 07:00 Resp 18 10/22/23 07:00 BP 124/64 10/22/23 07:00 Pulse Ox 97 10/22/23 07:00 FiO2 80 10/22/23 11:16 Intake & Output 10/21/23 10/22/23 10/22/23 18:59 06:59 18:59 Intake Total 6715.027 4740.266 247.283 Output Total 1920 15 0 Balance -111.433 0208.266 247.283 Weight 112.7 kg 115.3 kg 115.3 kg Intake: IV 700 730 60 Calcium Gluconate in NaCl 100 2 gm In Saline 1 100ml. bag @ 100 mls/hr IVPB ONCE ONE Rx#:[id number] Dextrose 5% in Water 1, 600 600 50 000 ml @ 50 mls/hr IV . Q23H JOLYNN with Sodium Bicarb (1 Meq/ml) 150 ml Rx#:[id number] Sodium Chloride 0.9% @ 10 130 10 Intake, IV Titration 485.129 640.266 187.283 Amount Norepinephrine 8 mg In 274.889 303.573 Sodium Chloride 0.9% 250 ml @ 0.03 MCG/KG/MIN 5. 661 mls/hr IV .Q24H JOLYNN Rx#:[id number] Sodium Chloride 0.9% 80 0 59.162 ml @ 0.5 MCG/KG/HR 4.876 mls/hr IV .[id number] JOLYNN with fentaNYL (PF) 1,000 mcg Rx#:[id number] propofoL 1,000 mg In 210.240 277.531 187.283 Empty Bag 1 bag @ 15 MCG/ KG/MIN 8.777 mls/hr IV . [id number] JOLYNN Rx#:[id number] Tube Feeding 60 20 Hemodialysis 400 Output: Urine 20 15 0 Hemodialysis 1900 Other: Voiding Method Indwelling Catheter Indwelling Catheter ABP, PAP, CO, CI - Last Documented Arterial Blood Pressure 121/45 - Exam No acute distress, sedated, with an orally placed endotracheal tube and NG tube. HEENT examination is grossly unremarkable. Neck supple. Full range of motion. No adenopathy thyromegaly or neck vein distention. Cardiovascular examination reveals regular rhythm rate. S1-S2 normal. No S3 or S4. No discernible murmur noted. Heart sounds are distant. Heart rate 80 bpm. Lungs reveal scattered bilateral rhonchi and crackles. Breath sounds are equal. No wheezes. Saturations are 97%. Abdomen soft with bowel sounds. No masses or tenderness. Extremities are intact. No cyanosis clubbing or edema. Skin is without rash or lesion. Neurologic examination cannot be assessed at this time. - Labs CBC & Chem 7: 10/22/23 05:00 10/22/23 05:00 Labs: Abnormal Lab Results - Last 24 Hours (Table) 10/21/23 10/21/23 10/21/23 Range/Units 13:19 15:21 19:28 WBC (3.8-10.6) k/uL RBC (4.30-5.90) m/uL Hgb (13.0-17.5) gm/dL Hct (39.0-53.0) % Plt Count (150-450) k/uL APTT (22.0-30.0) sec ABG pO2 52 L* (83-108) mmHg ABG O2 Saturation 85.7 L (94-97) % Sodium (137-145) mmol/L Carbon Dioxide (22-30) mmol/L BUN (9-20) mg/dL Creatinine (0.66-1.25) mg/dL Glucose (74-99) mg/dL POC Glucose (mg/dL) 63 L 69 L (70-110) mg/dL Calcium (8.4-10.2) mg/dL AST (17-59) U/L ALT (4-49) U/L Creatine Kinase (55-170) U/L Total Protein (6.3-8.2) g/dL Albumin (3.5-5.0) g/dL 10/22/23 10/22/23 10/22/23 Range/Units 05:00 05:00 05:00 WBC 22.3 H (3.8-10.6) k/uL RBC 3.27 L (4.30-5.90) m/uL Hgb 9.7 L (13.0-17.5) gm/dL Hct 28.5 L (39.0-53.0) % Plt Count 129 L (150-450) k/uL APTT 60.5 H (22.0-30.0) sec ABG pO2 (83-108) mmHg ABG O2 Saturation (94-97) % Sodium 136 L (137-145) mmol/L Carbon Dioxide 19 L (22-30) mmol/L BUN 45 H (9-20) mg/dL Creatinine 5.22 H (0.66-1.25) mg/dL Glucose 68 L (74-99) mg/dL POC Glucose (mg/dL) (70-110) mg/dL Calcium 5.0 L* (8.4-10.2) mg/dL AST 1195 H (17-59) U/L ALT 127 H (4-49) U/L Creatine Kinase 15921 H* (55-170) U/L Total Protein 4.8 L (6.3-8.2) g/dL Albumin 2.2 L (3.5-5.0) g/dL Microbiology - Last 24 Hours (Table) 10/21/23 04:30 Gram Stain - Preliminary Sputum Sputum Culture - Preliminary Kamilah albicans 10/19/23 12:34 Blood Culture - Preliminary Blood 10/19/23 12:23 Blood Culture - Preliminary Blood Assessment and Plan Assessment: Acute hypoxemic respiratory failure secondary to sepsis/septic shock, and rhabdomyolysis. Status post intubation and mechanical ventilation, 10/19/2023. Bilateral lower extremity critical limb ischemia, status post extensive surgery. Bilateral popliteal and tibial artery thrombosis. Bilateral superficial femoral artery occlusions. Acute rhabdomyolysis. Acute renal failure/acute tubular necrosis. Acute metabolic acidosis. CAD, with previous myocardial infarction. Type 2 diabetes mellitus. Bilateral lower extremity cellulitis. History of colitis. Recent coronavirus infection. Plan: Plan dated 10/22/2023. The patient continues on ventilatory support. The patient is on 90% FiO2, and PEEP of 10, with repeat being increased to 15 cm water. The patient also continues on IV heparin, propofol and fentanyl for sedation, and norepinephrine at 15 mcg/m. The patient is getting tube feedings with Nepro at 10 mL an hour. In addition, the patient continues on a sodium bicarbonate drip. Labs, x-rays, and medications are reviewed. Currently, the patient is too unstable, requiring too much support, to be able to be weaned off mechanical ventilation. In addition, dropping the FiO2 from 90%, to 80%, resulted in a very low saturation, having to increase the PEEP up to 15 from 10. Labs, x-rays, medications are all reviewed. Prognosis is certainly guarded. The patient continues on cefepime for the time being. Time with Patient: Greater than 30
[2023-10-22 11:41] LABS: Glucose,Whole Blood 83 mg/dL (70-110)
[2023-10-22] MEDS ORDERED: SILVER NITRATE APPLICATOR 1 EACH STICK..EA. TOPICAL ONE (11:45)
--- NOTE | 2023-10-22 12:26 | P.PN ---
Subjective Progress Note Date: 10/21/23 Principal diagnosis: Leukocytosis and lactic acidosis Patient is a 72-year-old male with multiple comorbidities including diabetes mellitus presented to the hospital with acute pain to bilateral lower extremity and this patient has been diagnosed with bilateral lower extremity critical limb ischemia bilateral popliteal and tibial artery thrombosis and bilateral superficial femoral artery occlusion status post open thrombectomy of bilateral popliteal superficial femoral and tibial arteries patient did have bilateral 4 compartment fasciotomy subsequently admitted to the ICU on the vent On today's evaluation that is 10/21/2023 patient did spike a fever of 101.3F at midnight, the patient is afebrile since then, the patient remains to be intubated on the vent currently on 90% FiO2 no significant purulent secretions through the ET diarrhea or any other changes reported by the nursing staff Patient did have a white count slightly down to 19.6, creatinine is 5.75 blood cultures are pending Objective - Vital Signs Vital signs: Vital Signs Temp 99.5 F 10/21/23 04:00 Pulse 91 10/21/23 07:00 Resp 28 H 10/21/23 07:00 BP 128/56 10/21/23 06:15 Pulse Ox 98 10/21/23 07:00 FiO2 50 10/21/23 07:27 Intake & Output 10/20/23 10/21/23 10/21/23 18:59 06:59 18:59 Intake Total 2174.345 2433.319 150 Output Total 1785 20 0 Balance 306.371 3646.319 150 Weight 113.4 kg 112.7 kg Intake: IV 500 1550 150 Calcium Gluconate in NaCl 100 2 gm In Saline 1 100ml. bag @ 100 mls/hr IVPB ONCE ONE Rx#:[id number] Dextrose 5% in Water 1, 500 550 50 000 ml @ 50 mls/hr IV . Q23H JOLYNN with Sodium Bicarb (1 Meq/ml) 150 ml Rx#:[id number] Sodium Chloride 0.9% 1, 1000 000 ml @ 999 mls/hr IV . Q1H1M ONE Rx#:[id number] Intake, IV Titration 644.345 883.319 Amount Heparin Sod,Pork in 0.45% 141.333 NaCl 25,000 unit In 0.45 % NaCl 1 250ml.bag @ 10. 254 UNITS/KG/HR 10 mls/hr IV .Q24H JOLYNN Rx#: [id number] Norepinephrine 8 mg In 393.333 543.626 Sodium Chloride 0.9% 250 ml @ 0.03 MCG/KG/MIN 5. 661 mls/hr IV .Q24H JOLYNN Rx#:[id number] Sodium Chloride 0.9% 100 100 ml @ 0 mls/hr IV .STK-MED ONE with ceFAZolin 2,000 mg Rx#:[id number] propofoL 1,000 mg In 151.012 198.36 Empty Bag 1 bag @ 15 MCG/ KG/MIN 8.777 mls/hr IV . [id number] JOLYNN Rx#:[id number] Tube Feeding 70 Hemodialysis 900 Other 60 Output: Urine 85 20 0 Hemodialysis 1700 Other: Voiding Method Indwelling Catheter Indwelling Catheter ABP, PAP, CO, CI - Last Documented Arterial Blood Pressure 142/49 - Exam GENERAL DESCRIPTION: An elderly male intubated on the vent RESPIRATORY SYSTEM: Unlabored breathing , decreased breath sounds at bases HEART: S1 S2 regular rate and rhythm , ABDOMEN: Soft , no tenderness EXTREMITIES: Bilateral lower extremities currently dressed - Labs CBC & Chem 7: 10/22/23 05:00 10/22/23 05:00 Labs: Abnormal Lab Results - Last 24 Hours (Table) 10/20/23 10/20/23 10/20/23 Range/Units 06:48 13:50 14:31 WBC (3.8-10.6) k/uL RBC (4.30-5.90) m/uL Hgb (13.0-17.5) gm/dL Hct (39.0-53.0) % Neutrophils # (1.3-7.7) k/uL APTT (22.0-30.0) sec ABG pO2 73 L (83-108) mmHg ABG HCO3 (21-25) mmol/L ABG Lactic Acid 3.7 H* (0.5-1.6) mmol/L Potassium (3.5-5.1) mmol/L Chloride (98-107) mmol/L Carbon Dioxide (22-30) mmol/L BUN (9-20) mg/dL Creatinine (0.66-1.25) mg/dL Glucose (74-99) mg/dL POC Glucose (mg/dL) (70-110) mg/dL Plasma Lactic Acid Lior (0.7-2.0) mmol/L Calcium (8.4-10.2) mg/dL Ionized Calcium Rich 3.3 L* (4.5-5.3) mg/dL 10/20/23 10/20/23 10/20/23 Range/Units 20:11 20:59 21:01 WBC (3.8-10.6) k/uL RBC (4.30-5.90) m/uL Hgb (13.0-17.5) gm/dL Hct (39.0-53.0) % Neutrophils # (1.3-7.7) k/uL APTT (22.0-30.0) sec ABG pO2 (83-108) mmHg ABG HCO3 (21-25) mmol/L ABG Lactic Acid (0.5-1.6) mmol/L Potassium (3.5-5.1) mmol/L Chloride (98-107) mmol/L Carbon Dioxide (22-30) mmol/L BUN (9-20) mg/dL Creatinine (0.66-1.25) mg/dL Glucose (74-99) mg/dL POC Glucose (mg/dL) 67 L 62 L 206 H (70-110) mg/dL Plasma Lactic Acid Lior (0.7-2.0) mmol/L Calcium (8.4-10.2) mg/dL Ionized Calcium Rich (4.5-5.3) mg/dL 10/21/23 10/21/23 10/21/23 Range/Units 00:21 04:06 04:50 WBC 19.6 H (3.8-10.6) k/uL RBC 3.47 L (4.30-5.90) m/uL Hgb 10.2 L (13.0-17.5) gm/dL Hct 30.0 L (39.0-53.0) % Neutrophils # 17.6 H (1.3-7.7) k/uL APTT (22.0-30.0) sec ABG pO2 82 L (83-108) mmHg ABG HCO3 20 L (21-25) mmol/L ABG Lactic Acid (0.5-1.6) mmol/L Potassium (3.5-5.1) mmol/L Chloride (98-107) mmol/L Carbon Dioxide (22-30) mmol/L BUN (9-20) mg/dL Creatinine (0.66-1.25) mg/dL Glucose (74-99) mg/dL POC Glucose (mg/dL) (70-110) mg/dL Plasma Lactic Acid Lior 7.5 H* (0.7-2.0) mmol/L Calcium (8.4-10.2) mg/dL Ionized Calcium Rich (4.5-5.3) mg/dL 10/21/23 10/21/23 10/21/23 Range/Units 04:50 04:50 05:55 WBC (3.8-10.6) k/uL RBC (4.30-5.90) m/uL Hgb (13.0-17.5) gm/dL Hct (39.0-53.0) % Neutrophils # (1.3-7.7) k/uL APTT 54.3 H (22.0-30.0) sec ABG pO2 (83-108) mmHg ABG HCO3 (21-25) mmol/L ABG Lactic Acid (0.5-1.6) mmol/L Potassium 5.7 H (3.5-5.1) mmol/L Chloride 110 H (98-107) mmol/L Carbon Dioxide 14 L (22-30) mmol/L BUN 49 H (9-20) mg/dL Creatinine 5.75 H (0.66-1.25) mg/dL Glucose 57 L (74-99) mg/dL POC Glucose (mg/dL) 42 L (70-110) mg/dL Plasma Lactic Acid Lior (0.7-2.0) mmol/L Calcium 5.0 L* (8.4-10.2) mg/dL Ionized Calcium Rich (4.5-5.3) mg/dL 10/21/23 Range/Units 05:56 WBC (3.8-10.6) k/uL RBC (4.30-5.90) m/uL Hgb (13.0-17.5) gm/dL Hct (39.0-53.0) % Neutrophils # (1.3-7.7) k/uL APTT (22.0-30.0) sec ABG pO2 (83-108) mmHg ABG HCO3 (21-25) mmol/L ABG Lactic Acid (0.5-1.6) mmol/L Potassium (3.5-5.1) mmol/L Chloride (98-107) mmol/L Carbon Dioxide (22-30) mmol/L BUN (9-20) mg/dL Creatinine (0.66-1.25) mg/dL Glucose (74-99) mg/dL POC Glucose (mg/dL) 43 L (70-110) mg/dL Plasma Lactic Acid Lior (0.7-2.0) mmol/L Calcium (8.4-10.2) mg/dL Ionized Calcium Rich (4.5-5.3) mg/dL Microbiology - Last 24 Hours (Table) 10/19/23 12:34 Blood Culture - Preliminary Blood 10/19/23 12:23 Blood Culture - Preliminary Blood 10/19/23 11:41 Urine Culture - Final Urine,Voided Assessment and Plan (1) SIRS (systemic inflammatory response syndrome) Current Visit: Yes Status: Acute Code(s): R65.10 - SIRS OF NON-INFECTIOUS ORIGIN W/O ACUTE ORGAN DYSFUNCTION SNOMED Code(s): 395409535 Plan: 1patient presented to hospital with low blood sugar patient also complaining of bilateral lower extremity pain without any history of any trauma patient was noticed to have mottled bilateral lower extremity , Patient has been diagnosed with the critical ischemia to bilateral lower extremity with evidence of acute thrombosis of the bilateral popliteal and tibial and superficial femoral artery s/p open thrombectomy selective bilateral tibial artery angiogram and bilateral 4 compartment fasciotomy 2Patient with a fever and elevated white count more likely related to #1 3--patient to continue with the cefepime , while waiting for the culture to finalize and continue with the nystatin powder to bilateral groin area Dictation was produced using [employer] dictation software. please excuse any grammatical, word or spelling errors. Time with Patient: Less than 30
--- NOTE | 2023-10-22 12:28 | P.PN ---
Subjective Progress Note Date: 10/22/23 Principal diagnosis: Leukocytosis and lactic acidosis Patient is a 72-year-old male with multiple comorbidities including diabetes mellitus presented to the hospital with acute pain to bilateral lower extremity and this patient has been diagnosed with bilateral lower extremity critical limb ischemia bilateral popliteal and tibial artery thrombosis and bilateral superficial femoral artery occlusion status post open thrombectomy of bilateral popliteal superficial femoral and tibial arteries patient did have bilateral 4 compartment fasciotomy subsequently admitted to the ICU on the vent On today's evaluation that is 10/22/2023 patient is afebrile this morning, the patient remains to be intubated on the vent, FiO2 is down to 80%, no significant purulent secretions through the ET diarrhea or any other changes reported by the nursing staff patient did not tolerated his dialysis per the civil cadd technician Patient did have a white count is slightly up to 22.3, creatinine is 5.22 blood cultures are so far negative Objective - Vital Signs Vital signs: Vital Signs Temp 97.9 F 10/22/23 11:59 Pulse 91 10/22/23 11:59 Resp 28 H 10/22/23 11:59 BP 113/44 10/22/23 11:59 Pulse Ox 94 L 10/22/23 11:30 FiO2 80 10/22/23 11:20 Intake & Output 10/21/23 10/22/23 10/22/23 18:59 06:59 18:59 Intake Total 4853.283 4221.266 776.490 Output Total 1920 15 1775 Balance -998.478 4735.266 -998.510 Weight 112.7 kg 115.3 kg 115.3 kg Intake: IV 700 730 60 Calcium Gluconate in NaCl 100 2 gm In Saline 1 100ml. bag @ 100 mls/hr IVPB ONCE ONE Rx#:[id number] Dextrose 5% in Water 1, 600 600 50 000 ml @ 50 mls/hr IV . Q23H JOLYNN with Sodium Bicarb (1 Meq/ml) 150 ml Rx#:[id number] Sodium Chloride 0.9% @ 10 130 10 Intake, IV Titration 485.129 640.266 316.490 Amount Norepinephrine 8 mg In 274.889 303.573 129.207 Sodium Chloride 0.9% 250 ml @ 0.03 MCG/KG/MIN 5. 661 mls/hr IV .Q24H JOLYNN Rx#:[id number] Sodium Chloride 0.9% 80 0 59.162 ml @ 0.5 MCG/KG/HR 4.876 mls/hr IV .[id number] JOLYNN with fentaNYL (PF) 1,000 mcg Rx#:[id number] propofoL 1,000 mg In 210.240 277.531 187.283 Empty Bag 1 bag @ 15 MCG/ KG/MIN 8.777 mls/hr IV . [id number] JOLYNN Rx#:[id number] Tube Feeding 60 20 Hemodialysis 400 400 Output: Urine 20 15 0 Hemodialysis 1900 1775 Other: Voiding Method Indwelling Catheter Indwelling Catheter ABP, PAP, CO, CI - Last Documented Arterial Blood Pressure 63/29 - Exam GENERAL DESCRIPTION: An elderly male intubated on the vent RESPIRATORY SYSTEM: Unlabored breathing , decreased breath sounds at bases HEART: S1 S2 regular rate and rhythm , ABDOMEN: Soft , no tenderness EXTREMITIES: Bilateral lower extremities currently dressed - Labs CBC & Chem 7: 10/22/23 05:00 10/22/23 05:00 Labs: Abnormal Lab Results - Last 24 Hours (Table) 10/21/23 10/21/23 10/21/23 Range/Units 13:19 15:21 19:28 WBC (3.8-10.6) k/uL RBC (4.30-5.90) m/uL Hgb (13.0-17.5) gm/dL Hct (39.0-53.0) % Plt Count (150-450) k/uL APTT (22.0-30.0) sec ABG pO2 52 L* (83-108) mmHg ABG O2 Saturation 85.7 L (94-97) % Sodium (137-145) mmol/L Carbon Dioxide (22-30) mmol/L BUN (9-20) mg/dL Creatinine (0.66-1.25) mg/dL Glucose (74-99) mg/dL POC Glucose (mg/dL) 63 L 69 L (70-110) mg/dL Calcium (8.4-10.2) mg/dL Phosphorus (2.5-4.5) mg/dL AST (17-59) U/L ALT (4-49) U/L Creatine Kinase (55-170) U/L Total Protein (6.3-8.2) g/dL Albumin (3.5-5.0) g/dL 10/22/23 10/22/23 10/22/23 Range/Units 05:00 05:00 05:00 WBC 22.3 H (3.8-10.6) k/uL RBC 3.27 L (4.30-5.90) m/uL Hgb 9.7 L (13.0-17.5) gm/dL Hct 28.5 L (39.0-53.0) % Plt Count 129 L (150-450) k/uL APTT 60.5 H (22.0-30.0) sec ABG pO2 (83-108) mmHg ABG O2 Saturation (94-97) % Sodium 136 L (137-145) mmol/L Carbon Dioxide 19 L (22-30) mmol/L BUN 45 H (9-20) mg/dL Creatinine 5.22 H (0.66-1.25) mg/dL Glucose 68 L (74-99) mg/dL POC Glucose (mg/dL) (70-110) mg/dL Calcium 5.0 L* (8.4-10.2) mg/dL Phosphorus (2.5-4.5) mg/dL AST 1195 H (17-59) U/L ALT 127 H (4-49) U/L Creatine Kinase 38271 H* (55-170) U/L Total Protein 4.8 L (6.3-8.2) g/dL Albumin 2.2 L (3.5-5.0) g/dL 10/22/23 Range/Units 06:55 WBC (3.8-10.6) k/uL RBC (4.30-5.90) m/uL Hgb (13.0-17.5) gm/dL Hct (39.0-53.0) % Plt Count (150-450) k/uL APTT (22.0-30.0) sec ABG pO2 (83-108) mmHg ABG O2 Saturation (94-97) % Sodium (137-145) mmol/L Carbon Dioxide (22-30) mmol/L BUN (9-20) mg/dL Creatinine (0.66-1.25) mg/dL Glucose (74-99) mg/dL POC Glucose (mg/dL) (70-110) mg/dL Calcium (8.4-10.2) mg/dL Phosphorus 9.2 H* (2.5-4.5) mg/dL AST (17-59) U/L ALT (4-49) U/L Creatine Kinase (55-170) U/L Total Protein (6.3-8.2) g/dL Albumin (3.5-5.0) g/dL Microbiology - Last 24 Hours (Table) 10/21/23 04:30 Gram Stain - Preliminary Sputum Sputum Culture - Preliminary Kamilah albicans 10/19/23 12:34 Blood Culture - Preliminary Blood 10/19/23 12:23 Blood Culture - Preliminary Blood Assessment and Plan (1) SIRS (systemic inflammatory response syndrome) Current Visit: Yes Status: Acute Code(s): R65.10 - SIRS OF NON-INFECTIOUS ORIGIN W/O ACUTE ORGAN DYSFUNCTION SNOMED Code(s): 267589575 Plan: 1patient with fever and looks status is in this patient with initial presentation to the hospital with bilateral lower extremity pain, patient has been diagnosed with the critical ischemia to bilateral lower extremity with evidence of acute thrombosis of the bilateral popliteal and tibial and superficial femoral artery s/p open thrombectomy selective bilateral tibial artery angiogram and bilateral 4 compartment fasciotomy 2blood cultures has been repeated we will continue the patient cefepime add daptomycin for gram-positive coverage and monitor clinical course closely Dictation was produced using [employer] dictation software. please excuse any grammatical, word or spelling errors. Time with Patient: Less than 30
--- NOTE | 2023-10-22 12:43 | P.PN ---
Subjective Progress Note Date: 10/22/23 Principal diagnosis: Acute bilateral critical limb ischemia Patient is seen and examined today as a follow-up in the ICU. He remains intubated and sedated, currently on levothyroid. He has left groin temporary dialysis catheter, right groin incision with Prevena dressing in place. No acute changes throughout the night reported per nursing. He is currently getting hemodialysis. Objective - Vital Signs Vital signs: Vital Signs Temp 36.3 F L 10/22/23 05:15 Pulse 80 10/22/23 07:00 Resp 18 10/22/23 07:00 BP 124/64 10/22/23 07:00 Pulse Ox 97 10/22/23 07:00 FiO2 90 10/22/23 07:57 Intake & Output 10/21/23 10/22/23 10/22/23 18:59 06:59 18:59 Intake Total 4477.070 6839.266 60 Output Total 1920 15 0 Balance -951.417 6228.266 60 Weight 112.7 kg 115.3 kg Intake: IV 700 730 60 Calcium Gluconate in NaCl 100 2 gm In Saline 1 100ml. bag @ 100 mls/hr IVPB ONCE ONE Rx#:[id number] Dextrose 5% in Water 1, 600 600 50 000 ml @ 50 mls/hr IV . Q23H JOLYNN with Sodium Bicarb (1 Meq/ml) 150 ml Rx#:[id number] Sodium Chloride 0.9% @ 10 130 10 Intake, IV Titration 485.129 640.266 Amount Norepinephrine 8 mg In 274.889 303.573 Sodium Chloride 0.9% 250 ml @ 0.03 MCG/KG/MIN 5. 661 mls/hr IV .Q24H JOLYNN Rx#:[id number] Sodium Chloride 0.9% 80 0 59.162 ml @ 0.5 MCG/KG/HR 4.876 mls/hr IV .[id number] JOLYNN with fentaNYL (PF) 1,000 mcg Rx#:[id number] propofoL 1,000 mg In 210.240 277.531 Empty Bag 1 bag @ 15 MCG/ KG/MIN 8.777 mls/hr IV . [id number] JOLYNN Rx#:[id number] Tube Feeding 60 20 Hemodialysis 400 Output: Urine 20 15 0 Hemodialysis 1900 Other: Voiding Method Indwelling Catheter Indwelling Catheter ABP, PAP, CO, CI - Last Documented Arterial Blood Pressure 121/45 - Exam General appearance: The patient sedated and intubated on mechanical ventilation. HET: Head is normocephalic and atraumatic. Neck: Supple. Heart: Regular. Lungs: Equal expansion.. Abdomen: Soft, nondistended. Extremities: Right groin with Prevena dressing in place. Left groin with temporary hemodialysis catheter. Bilateral lower extremities with dressings, clean dry and intact. Left toes cool to touch with ischemic changes, right foot warm to touch with areas of ischemic changes on toes. No mottling noted down lower extremities. Multiphasic PT and DP Doppler signals. Bilateral upper extremity swelling, with radial Doppler signals. Dressings changed to bilateral lower extremity fasciotomy sites. Tissue pink, left lateral aspect with area of bleeding with hemostasis with pressure. Neurological: Sedated and intubated. - Labs CBC & Chem 7: 10/22/23 05:00 10/22/23 05:00 Labs: Abnormal Lab Results - Last 24 Hours (Table) 10/21/23 10/21/23 10/21/23 Range/Units 13:19 15:21 19:28 WBC (3.8-10.6) k/uL RBC (4.30-5.90) m/uL Hgb (13.0-17.5) gm/dL Hct (39.0-53.0) % Plt Count (150-450) k/uL APTT (22.0-30.0) sec ABG pO2 52 L* (83-108) mmHg ABG O2 Saturation 85.7 L (94-97) % Sodium (137-145) mmol/L Carbon Dioxide (22-30) mmol/L BUN (9-20) mg/dL Creatinine (0.66-1.25) mg/dL Glucose (74-99) mg/dL POC Glucose (mg/dL) 63 L 69 L (70-110) mg/dL Calcium (8.4-10.2) mg/dL AST (17-59) U/L ALT (4-49) U/L Creatine Kinase (55-170) U/L Total Protein (6.3-8.2) g/dL Albumin (3.5-5.0) g/dL 10/22/23 10/22/23 10/22/23 Range/Units 05:00 05:00 05:00 WBC 22.3 H (3.8-10.6) k/uL RBC 3.27 L (4.30-5.90) m/uL Hgb 9.7 L (13.0-17.5) gm/dL Hct 28.5 L (39.0-53.0) % Plt Count 129 L (150-450) k/uL APTT 60.5 H (22.0-30.0) sec ABG pO2 (83-108) mmHg ABG O2 Saturation (94-97) % Sodium 136 L (137-145) mmol/L Carbon Dioxide 19 L (22-30) mmol/L BUN 45 H (9-20) mg/dL Creatinine 5.22 H (0.66-1.25) mg/dL Glucose 68 L (74-99) mg/dL POC Glucose (mg/dL) (70-110) mg/dL Calcium 5.0 L* (8.4-10.2) mg/dL AST 1195 H (17-59) U/L ALT 127 H (4-49) U/L Creatine Kinase 53633 H* (55-170) U/L Total Protein 4.8 L (6.3-8.2) g/dL Albumin 2.2 L (3.5-5.0) g/dL Microbiology - Last 24 Hours (Table) 10/21/23 04:30 Gram Stain - Preliminary Sputum Sputum Culture - Preliminary Kamilah albicans 10/19/23 12:34 Blood Culture - Preliminary Blood 10/19/23 12:23 Blood Culture - Preliminary Blood Assessment and Plan Assessment: 1. Acute bilateral critical limb ischemia status post revascularization 2. Acute renal failure secondary to above 3. Leukocytosis 4. Lactic acidosis secondary to #1 Plan: 1. Continue ICU care 2. Daily dressing changes, wet-to-dry to bilateral fasciotomy sites 3. Wait for further demarcation for potential need for site amputation. Multiphasic signals. Consider potential stage closure in the future. Thank you for this consultation, we will continue to follow. The impression and plan of care has been dictated as directed. I performed a history and examination of this patient, discussed the same with the dictator. I agree with the dictator's note ,documented as a scribe. Any additional findings or plans will be noted.
--- NOTE | 2023-10-22 12:54 | P.PN ---
Subjective Progress Note Date: 10/22/23 patient is 72-year-old gentleman who is currently in [facility] has a past medical history of Coronary Artery Disease status post CABG , Heart Failure, Diabetes Mellitus, Hyperlipidemia, Hypertension, Syncope, thyroid disease, CT of the brain in September 2017 demonstrated old right lacunar infarct, Bipolar, PTSD was brought to the ER for generalized weakness. Patient is a poor historian. Most of the history has been taken from electronic medical records and from the patient, patient stated that he was complaining of weakness this morning after waking up from sleep. Patient stated that his legs were heavy on him and was unable to lift them off. Denied any pain in lower extremities. Denied any fever or chills. There was no complain of nausea, vomiting abdominal pain. [facility] staff checked on the patient and found his blood sugars to be low and he was given some dextrose which improved his blood sugars. Patient was recently in the hospital at which time he was diagnosed with COVID-19 infection and was also found to have colitis. Patient was brought to the ER Initial lab work done in the ER showed WBC 18, hemoglobin, platelet count 357, sodium 147, potassium 5.4, BUN 53, creatinine 7.47 , lactate 10.5, calcium 7.9, AST 243, ALT 78, [id number], troponin 0.055 Chest x-ray done in the ER showed low lung volumes, no acute cardiac process, COPD change In the ER, patient was found to have cold bilateral lower extremities, there was no pulses in lower extremities and there was mottling of the skin. Stat vascular surgery consult was requested and vascular surgery evaluated the patient recommended starting patient on heparin and initiating surgical intervention for acute bilateral lower extremity ischemia. Patient will be admitted to ICU 10/20. Patient seen and examined. Status post Open thrombectomy of bilateral popliteal, superficial femoral, and tibial arteries. Currently intubated and sedated. Patient is being started on nutrition by tube feeding. Currently on IV fentanyl, propofol and Levophed 10/21. Patient seen and examined. Lab work done this morning showed WBC 19.6, hemoglobin 10.2, sodium 141, potassium 5.7, BUN 49, creatinine 5.75. Continues to be intubated and sedated. Currently undergoing dialysis. Currently on IV Levophed, bicarb drip, cefepime, heparin, fentanyl. 10/22. Patient seen and examined. Patient currently on bicarb drip, propofol, fentanyl, Levophed and heparin drip. Continues to be intubated REVIEW OF SYSTEMS: Currently intubated and sedated PHYSICAL EXAMINATION: GENERAL: The patient is intubated and sedated, chronically ill-looking HEENT: Pupils are round and equally reacting to light. No pharyngeal erythema. No thyromegaly. CARDIOVASCULAR: S1 and S2 present. No murmurs, rubs, or gallops. PULMONARY: Diminished breath sounds at the bases bilaterally, no wheezing or crackles. ABDOMEN: Soft, nontender, nondistended, normoactive bowel sounds. No palpable organomegaly. MUSCULOSKELETAL: Bilateral lower extremity bandage seen at site of fasciotomies EXTREMITIES: No cyanosis, legs are warm NEUROLOGICAL: Intubated and sedated SKIN: No rashes. Assessment and plan Bilateral lower extremity critical limb ischemia.nhi class II Severe Sepsis Bilateral popliteal and tibial artery thrombosis Bilateral superficial femoral artery occlusions Acute hypoxic respiratory failure Lactic acidosis Acute kidney injury Rhabdomyolysis Hyperkalemia Hypoglycemia Rhabdomyolysis Elevated troponin COVID-19 infection Diabetes mellitus, with hyperglycemia Hypothyroidism Hypertension Hyperlipidemia History of osteoarthritis Hypothyroidism History of coronary artery disease status post CABG Hypocalcemia Monitor vital signs Monitor CBC Monitor CMP Continue telemetry monitoring Status post Open thrombectomy of bilateral popliteal, superficial femoral, and tibial arteries with stenting of left and right superficial femoral artery and Bilateral 4 compartment fasciotomy Follow-up on blood cultures Continue vent management per ICU Continue fentanyl and propofol. Continue Levophed Continue bicarb drip continue pharmacy dose heparin Continue IV cefepime and daptomycin Vascularr surgery following Critical care following ID following Nephrology is following Labs and medication were reviewed.. Continue same treatment. Continue with symptomatic treatment. Resume home medication. Monitor labs and vitals. DVT and GI prophylaxis. Further recommendations as per clinical course of the patient Dictation was produced using [employer] dictation software. please excuse any grammatical, word or spelling errors. Objective - Vital Signs Vital signs: Vital Signs Temp 97.9 F 10/22/23 11:59 Pulse 91 10/22/23 11:59 Resp 28 H 10/22/23 11:59 BP 113/44 10/22/23 11:59 Pulse Ox 94 L 10/22/23 11:30 FiO2 80 10/22/23 11:20 Intake & Output 10/21/23 10/22/23 10/22/23 18:59 06:59 18:59 Intake Total 0797.375 2051.266 776.490 Output Total 1920 15 1775 Balance -555.295 6701.266 -998.510 Weight 112.7 kg 115.3 kg 115.3 kg Intake: IV 700 730 60 Calcium Gluconate in NaCl 100 2 gm In Saline 1 100ml. bag @ 100 mls/hr IVPB ONCE ONE Rx#:[id number] Dextrose 5% in Water 1, 600 600 50 000 ml @ 50 mls/hr IV . Q23H JOLYNN with Sodium Bicarb (1 Meq/ml) 150 ml Rx#:[id number] Sodium Chloride 0.9% @ 10 130 10 Intake, IV Titration 485.129 640.266 316.490 Amount Norepinephrine 8 mg In 274.889 303.573 129.207 Sodium Chloride 0.9% 250 ml @ 0.03 MCG/KG/MIN 5. 661 mls/hr IV .Q24H JOLYNN Rx#:[id number] Sodium Chloride 0.9% 80 0 59.162 ml @ 0.5 MCG/KG/HR 4.876 mls/hr IV .[id number] JOLYNN with fentaNYL (PF) 1,000 mcg Rx#:[id number] propofoL 1,000 mg In 210.240 277.531 187.283 Empty Bag 1 bag @ 15 MCG/ KG/MIN 8.777 mls/hr IV . [id number] JOLYNN Rx#:[id number] Tube Feeding 60 20 Hemodialysis 400 400 Output: Urine 20 15 0 Hemodialysis 1900 1775 Other: Voiding Method Indwelling Catheter Indwelling Catheter ABP, PAP, CO, CI - Last Documented Arterial Blood Pressure 63/29 - Labs CBC & Chem 7: 10/22/23 05:00 10/22/23 05:00 Labs: Abnormal Lab Results - Last 24 Hours (Table) 10/21/23 10/21/23 10/21/23 Range/Units 13:19 15:21 19:28 WBC (3.8-10.6) k/uL RBC (4.30-5.90) m/uL Hgb (13.0-17.5) gm/dL Hct (39.0-53.0) % Plt Count (150-450) k/uL APTT (22.0-30.0) sec ABG pO2 52 L* (83-108) mmHg ABG O2 Saturation 85.7 L (94-97) % Sodium (137-145) mmol/L Carbon Dioxide (22-30) mmol/L BUN (9-20) mg/dL Creatinine (0.66-1.25) mg/dL Glucose (74-99) mg/dL POC Glucose (mg/dL) 63 L 69 L (70-110) mg/dL Calcium (8.4-10.2) mg/dL Phosphorus (2.5-4.5) mg/dL AST (17-59) U/L ALT (4-49) U/L Creatine Kinase (55-170) U/L Total Protein (6.3-8.2) g/dL Albumin (3.5-5.0) g/dL 10/22/23 10/22/23 10/22/23 Range/Units 05:00 05:00 05:00 WBC 22.3 H (3.8-10.6) k/uL RBC 3.27 L (4.30-5.90) m/uL Hgb 9.7 L (13.0-17.5) gm/dL Hct 28.5 L (39.0-53.0) % Plt Count 129 L (150-450) k/uL APTT 60.5 H (22.0-30.0) sec ABG pO2 (83-108) mmHg ABG O2 Saturation (94-97) % Sodium 136 L (137-145) mmol/L Carbon Dioxide 19 L (22-30) mmol/L BUN 45 H (9-20) mg/dL Creatinine 5.22 H (0.66-1.25) mg/dL Glucose 68 L (74-99) mg/dL POC Glucose (mg/dL) (70-110) mg/dL Calcium 5.0 L* (8.4-10.2) mg/dL Phosphorus (2.5-4.5) mg/dL AST 1195 H (17-59) U/L ALT 127 H (4-49) U/L Creatine Kinase 95803 H* (55-170) U/L Total Protein 4.8 L (6.3-8.2) g/dL Albumin 2.2 L (3.5-5.0) g/dL 10/22/23 Range/Units 06:55 WBC (3.8-10.6) k/uL RBC (4.30-5.90) m/uL Hgb (13.0-17.5) gm/dL Hct (39.0-53.0) % Plt Count (150-450) k/uL APTT (22.0-30.0) sec ABG pO2 (83-108) mmHg ABG O2 Saturation (94-97) % Sodium (137-145) mmol/L Carbon Dioxide (22-30) mmol/L BUN (9-20) mg/dL Creatinine (0.66-1.25) mg/dL Glucose (74-99) mg/dL POC Glucose (mg/dL) (70-110) mg/dL Calcium (8.4-10.2) mg/dL Phosphorus 9.2 H* (2.5-4.5) mg/dL AST (17-59) U/L ALT (4-49) U/L Creatine Kinase (55-170) U/L Total Protein (6.3-8.2) g/dL Albumin (3.5-5.0) g/dL Microbiology - Last 24 Hours (Table) 10/21/23 04:30 Gram Stain - Preliminary Sputum Sputum Culture - Preliminary Kamilah albicans 10/19/23 12:34 Blood Culture - Preliminary Blood 10/19/23 12:23 Blood Culture - Preliminary Blood
[2023-10-22 17:11] LABS: Glucose,Whole Blood 82 mg/dL (70-110)
[2023-10-22] MEDS: CALCIUM ACETATE 667 MG TAB PO SCH (18:34)
[2023-10-22 20:23] LABS: Glucose,Whole Blood 104 mg/dL (70-110)
[2023-10-22] MEDS: HEPARIN SOD,PORK IN 0.45% NACL 25,000 UNIT in 0.45% NACL 1 250ML.BAG IV SCH (20:49)
[2023-10-23] MEDS: HEPARIN SOD,PORK IN 0.45% NACL 25,000 UNIT in 0.45% NACL 1 250ML.BAG IV SCH (00:09)
[2023-10-23] MEDS: DEXTROSE 5% IN WATER 1,000 ML with SODIUM BICARB (1 MEQ/ML) 150 ML IV SCH (00:14)
[2023-10-23 00:21] LABS: Glucose,Whole Blood 139 mg/dL (70-110)
[2023-10-23 04:26] LABS: Glucose,Whole Blood 182 mg/dL (70-110)
[2023-10-23 04:37] LABS: Basophils % (A) 0 %; Eosinophils # (A) 0.1 k/uL (0-0.7); Eosinophils % (A) 1 %; HCT 24.7 % (39.0-53.0); HGB 8.6 gm/dL (13.0-17.5); Lymphocytes # (A) 0.5 k/uL (1.0-4.8); Lymphocytes % (A) 2 %; MCH 30.4 pg (25.0-35.0); MCHC 34.6 g/dL (31.0-37.0); MCV 87.7 fL (80.0-100.0); Mean Platelet Volume 9.6; Monocytes # (A) 0.3 k/uL (0-1.0); Monocytes % (A) 1 %; Neutrophils # (A) 22.3 k/uL (1.3-7.7); Neutrophils % (A) 95 %; Platelet Count 130 k/uL (150-450); RBC 2.82 m/uL (4.30-5.90); RDW 15.4 % (11.5-15.5); WBC 23.5 k/uL (3.8-10.6)
[2023-10-23 05:05] LABS: Albumin 2.1 g/dL (3.5-5.0); Alkaline Phosphatase 141 U/L (38-126); Blood Urea Nitrogen 43 mg/dL (9-20); Carbon Dioxide 22 mmol/L (22-30); Chloride 98 mmol/L (98-107); Glucose 151 mg/dL (74-99); Total Bilirubin 0.6 mg/dL (0.2-1.3); Total Protein 4.7 g/dL (6.3-8.2)
[2023-10-23 05:06] LABS: ALT 109 U/L (4-49)
[2023-10-23 05:39] LABS: Calcium 5.3 mg/dL (8.4-10.2); Phosphorus 9.6 mg/dL (2.5-4.5)
[2023-10-23 05:42] LABS: ABG Base Excess -1.2 mmol/L; ABG HCO3 24 mmol/L (21-25); ABG Oxygen Saturation 90.5 % (94-97); ABG PCO2 45 mmHg (35-45); ABG PH 7.35 (7.35-7.45); ABG PO2 63 mmHg (83-108); ABG TCO2 26 mmol/L (19-24); Allen Test Performed? Yes
[2023-10-23 05:42] LABS: AST 1026 U/L (17-59)
[2023-10-23 05:43] LABS: Anion Gap 13 mmol/L; Potassium 5.2 mmol/L (3.5-5.1); Sodium 133 mmol/L (137-145)
[2023-10-23] MEDS: NOREPINEPHRINE 8 MG in SODIUM CHLORIDE 0.9% 250 ML IV SCH ×4 (05:58→21:37)
[2023-10-23 06:00] LABS: African American GFR (CKD) 14 (>60 ml/min/1.73 sqM); Non-African American GFR(CKD) 12 (>60 ml/min/1.73 sqM)
[2023-10-23] MEDS: CALCIUM ACETATE 667 MG TAB PO SCH ×3 (06:43→17:44)
[2023-10-23 06:59] LABS: Ionized Calcium 3.1 mg/dL (4.5-5.3)
[2023-10-23] MEDS ORDERED: CALCIUM GLUCONATE IN NACL 2 GM in SALINE 1 100ML.BAG IVPB ONE (07:00)
[2023-10-23 07:09] LABS: Magnesium 1.7 mg/dL (1.6-2.3)
[2023-10-23] MEDS: PANTOPRAZOLE 40 MG/10 ML VIAL IV SCH (08:24)
[2023-10-23] MEDS: CHLORHEXIDINE GLUCONATE 15 ML CUP MUCOUS MEM SCH ×2 (08:24→20:40)
[2023-10-23] MEDS: CEFEPIME 1 GM in SODIUM CHLORIDE 0.9% 50 ML IVPB SCH (08:35)
[2023-10-23] MEDS ORDERED: FLUCONAZOLE IN NACL,ISO-OSM 100 MG in SALINE 1 50ML.BAG IVPB SCH (09:30)
[2023-10-23] MEDS: NYSTATIN 100,000 UNIT/GM POWD 15 GM TOPICAL SCH ×2 (09:51→21:37)
[2023-10-23] MEDS ORDERED: DEXTROSE 5% IN WATER 1,000 ML with SODIUM BICARB (1 MEQ/ML) 150 ML IV SCH (10:00)
[2023-10-23 10:09] LABS: Glucose,Whole Blood 236 mg/dL (70-110)
--- NOTE | 2023-10-23 10:21 | P.PN ---
Subjective Patient is seen in follow-up for acute kidney injury. Started on hemodialysis 10/20/2023. Oliguric. Intubated. On Levophed. Receiving tube feeds. Became hypoxic and hypotensive during dialysis yesterday and the treatment was cut short. Vital signs are stable. On vasopressor support. General: Resting in bed. HEENT: Intubated. LUNGS: Scattered rhonchi. HEART: Rate and Rhythm are regular. ABDOMEN: No distention. EXTREMITITES: Lower extremities wrapped. Objective - Vital Signs Vital signs: Vital Signs Temp 97 F L 10/23/23 08:00 Pulse 80 10/23/23 09:45 Resp 11 L 10/23/23 09:45 BP 120/56 10/23/23 09:45 Pulse Ox 94 L 10/23/23 09:45 FiO2 60 10/23/23 08:57 Intake & Output 10/22/23 10/23/23 10/23/23 18:59 06:59 18:59 Intake Total 2311.295 2092.956 446.518 Output Total 1795 8 3 Balance 417.416 0695.956 443.518 Weight 115.3 kg 115.7 kg Intake: IV 1145 910 300 Calcium Gluconate in NaCl 100 2 gm In Saline 1 100ml. bag @ 100 mls/hr IVPB ONCE ONE Rx#:[id number] Cefepime 1 gm In Sodium 50 50 Chloride 0.9% 50 ml @ 12. 5 mls/hr IVPB Q24HR [facility] Rx#:[id number] Dextrose 5% in Water 1, 50 000 ml @ 50 mls/hr IV . Q23H [facility] with Sodium Bicarb (1 Meq/ml) 150 ml Rx#:[id number] Dextrose 5% in Water 1, 875 900 150 000 ml @ 75 mls/hr IV . [id number] [facility] with Sodium Bicarb (1 Meq/ml) 150 ml Rx#:[id number] Sodium Chloride 0.9% @ 10 120 10 50 Intake, IV Titration 686.295 942.956 46.518 Amount Heparin Sod,Pork in 0.45% 250 NaCl 25,000 unit In 0.45 % NaCl 1 250ml.bag @ 10. 254 UNITS/KG/HR 10 mls/hr IV .Q24H [facility] Rx#: [id number] Norepinephrine 8 mg In 299.012 278.569 Sodium Chloride 0.9% 250 ml @ 0.03 MCG/KG/MIN 5. 661 mls/hr IV .Q24H [facility] Rx#:[id number] Sodium Chloride 0.9% 80 84.03 ml @ 0.5 MCG/KG/HR 4.876 mls/hr IV .[id number] [facility] with fentaNYL (PF) 1,000 mcg Rx#:[id number] propofoL 1,000 mg In 387.283 330.357 46.518 Empty Bag 1 bag @ 15 MCG/ KG/MIN 8.777 mls/hr IV . [id number] [facility] Rx#:[id number] Tube Feeding 50 180 70 Hemodialysis 400 Other 30 60 30 Output: Urine 20 8 3 Hemodialysis 1775 Other: Voiding Method Indwelling Catheter Indwelling Catheter # Bowel Movements 2 1 ABP, PAP, CO, CI - Last Documented Arterial Blood Pressure 125/42 - Labs CBC & Chem 7: 10/23/23 04:18 10/23/23 04:18 Labs: Abnormal Lab Results - Last 24 Hours (Table) 10/22/23 10/23/23 10/23/23 Range/Units 06:55 00:19 04:18 WBC (3.8-10.6) k/uL RBC (4.30-5.90) m/uL Hgb (13.0-17.5) gm/dL Hct (39.0-53.0) % Plt Count (150-450) k/uL Neutrophils # (1.3-7.7) k/uL Lymphocytes # (1.0-4.8) k/uL APTT (22.0-30.0) sec ABG pO2 (83-108) mmHg ABG Total CO2 (19-24) mmol/L ABG O2 Saturation (94-97) % Sodium 133 L (137-145) mmol/L Potassium 5.2 H (3.5-5.1) mmol/L BUN 43 H (9-20) mg/dL Creatinine 4.65 H (0.66-1.25) mg/dL Glucose 151 H (74-99) mg/dL POC Glucose (mg/dL) 139 H (70-110) mg/dL Calcium 5.3 L* (8.4-10.2) mg/dL Ionized Calcium Rich (4.5-5.3) mg/dL Phosphorus 9.2 H* 9.6 H* (2.5-4.5) mg/dL AST 1026 H (17-59) U/L ALT 109 H (4-49) U/L Alkaline Phosphatase 141 H (38-126) U/L Creatine Kinase 70785 H* (55-170) U/L Total Protein 4.7 L (6.3-8.2) g/dL Albumin 2.1 L (3.5-5.0) g/dL 10/23/23 10/23/23 10/23/23 Range/Units 04:18 04:18 04:23 WBC 23.5 H (3.8-10.6) k/uL RBC 2.82 L (4.30-5.90) m/uL Hgb 8.6 L (13.0-17.5) gm/dL Hct 24.7 L (39.0-53.0) % Plt Count 130 L (150-450) k/uL Neutrophils # 22.3 H (1.3-7.7) k/uL Lymphocytes # 0.5 L (1.0-4.8) k/uL APTT 57.3 H (22.0-30.0) sec ABG pO2 (83-108) mmHg ABG Total CO2 (19-24) mmol/L ABG O2 Saturation (94-97) % Sodium (137-145) mmol/L Potassium (3.5-5.1) mmol/L BUN (9-20) mg/dL Creatinine (0.66-1.25) mg/dL Glucose (74-99) mg/dL POC Glucose (mg/dL) 182 H (70-110) mg/dL Calcium (8.4-10.2) mg/dL Ionized Calcium Rich (4.5-5.3) mg/dL Phosphorus (2.5-4.5) mg/dL AST (17-59) U/L ALT (4-49) U/L Alkaline Phosphatase (38-126) U/L Creatine Kinase (55-170) U/L Total Protein (6.3-8.2) g/dL Albumin (3.5-5.0) g/dL 10/23/23 10/23/23 10/23/23 Range/Units 04:58 05:38 10:08 WBC (3.8-10.6) k/uL RBC (4.30-5.90) m/uL Hgb (13.0-17.5) gm/dL Hct (39.0-53.0) % Plt Count (150-450) k/uL Neutrophils # (1.3-7.7) k/uL Lymphocytes # (1.0-4.8) k/uL APTT (22.0-30.0) sec ABG pO2 63 L (83-108) mmHg ABG Total CO2 26 H (19-24) mmol/L ABG O2 Saturation 90.5 L (94-97) % Sodium (137-145) mmol/L Potassium (3.5-5.1) mmol/L BUN (9-20) mg/dL Creatinine (0.66-1.25) mg/dL Glucose (74-99) mg/dL POC Glucose (mg/dL) 236 H (70-110) mg/dL Calcium (8.4-10.2) mg/dL Ionized Calcium Rich 3.1 L* (4.5-5.3) mg/dL Phosphorus (2.5-4.5) mg/dL AST (17-59) U/L ALT (4-49) U/L Alkaline Phosphatase (38-126) U/L Creatine Kinase (55-170) U/L Total Protein (6.3-8.2) g/dL Albumin (3.5-5.0) g/dL Microbiology - Last 24 Hours (Table) 10/19/23 12:34 Blood Culture - Preliminary Blood 10/19/23 12:23 Blood Culture - Preliminary Blood 10/21/23 04:30 Gram Stain - Preliminary Sputum Sputum Culture - Preliminary Kamilah albicans Assessment and Plan Plan: Assessment: 1. Acute kidney injury secondary to ATN secondary to septic shock/rhabdomyolysis. Baseline creatinine 0.8 and 7.47 this admission. Started on hemodialysis 10/20/2023. Has left femoral catheter. No hydronephrosis noted on kidney ultrasound. 2. Acute COVID-19 infection. 3. Rhabdomyolysis status post fasciotomy. CK level trending down. 4. Shock maintained on Levophed. 5. Metabolic acidosis secondary to acute kidney injury maintained on bicarb drip. Improved. 6. Hypocalcemia secondary to acute kidney injury, rhabdomyolysis. 7. Hyperkalemia secondary to acute kidney injury. Improved postdialysis. 8. Hyperphosphatemia secondary to acute kidney injury. On PhosLo. Plan: Hemodialysis today and again tomorrow. Status post Lasix 80 mg IV given 10/22/2023 with no response in urine output. Decrease rate of bicarb drip to 50 mL an hour. Maintain tube feeds. Replace calcium. Repeat CK level in AM. Wean FiO2 and vasopressors. Monitor for renal recovery.
--- NOTE | 2023-10-23 10:48 | P.PN ---
Subjective Progress Note Date: 10/23/23 Principal diagnosis: Respiratory failure. Acute hypoxic respiratory failure secondary to sepsis, septic shock, rhabdomyolysis, and compartment syndrome of lower extremities secondary to critical limb ischemia and thromboses Patient was reevaluated today on 10/21/23, remains in the ICU, intubated and mechanically ventilated. Patient is on assist control rate of 24 tidal volume 400 FiO2 50% and PEEP of 5 ABG showed a pO2 of 82 pCO2 35 pH of 7.37 hence no changes were made today in his ventilator settings. Patient remains on norepinephrine at 0.2 mcg/kg/m, propofol at 35 mcg/kg/m, and he is also on heparin drip. Nutrition-nathan the patient will be started on Nepro today. He is still undergoing hemodialysis, and the plan is to remove 1.5 L of fluids today. Patient remains on bicarb drip 50 ML per hour with 3 A of bicarb in 1 L of D5W. Asked x-ray showed mostly right basilar atelectasis, proper position of the endotracheal tube in proper position of the orogastric tube noted. Labs today showed improvement of his leukocytosis WBC count of 19.6 hemoglobin is 10.2 PTT is therapeutic at 54, basic metabolic profile showed slight hyperkalemia that would be corrected by hemodialysis which would be done sometime in the next half hour. Patient continues to have poor blood flow down to the feet, but pulses are noted by Doppler. Even his left radial pulse was not palpable, and it is detectable by Doppler obviously the patient is not ready for any form of weaning and I will not hold his sedation today, may consider sedation interruption and assessment of mental status and possible but the patient remains hemodynamically unstable I prefer not to do so at this point Progress note dated 10/22/2023. This is a 72-year-old male who was admitted to the hospital on October 19, for systemic inflammatory response syndrome and rhabdomyolysis. The patient came to the intensive care unit, on the , and was intubated on the . The patient remains on mechanical ventilator. He is on the volume assist control, rate 24, tidal volume 400, FiO2 90%, and PEEP of 10. Blood gases show pO2 101, pCO2 40, and a pH is 7.36. The FiO2 was dropped down to 80%, but the patient desaturated, and so the patient was placed on a PEEP of 15. Currently, the patient is on D5W with 3 ampules of sodium bicarbonate at 75 mL an hour, heparin via weightbase protocol, propofol at 50 mcg/kg/m, fentanyl at 0.5 mcg/kg/h, norepinephrine at 15 mcg/m, and tube feedings with Nepro at 10 mL an hour. The patient had an extensive vascular procedure/thrombectomy. White count was 22.3, hemoglobin 9.7, hematocrit 28.5, and platelet count is 129,000. Sodium 136, potassium 5, chlorides 100, CO2 19, anion gap 17, BUN 45, and creatinine 5.22. The patient's CK is 56,363. AST is 1195, and ALT is 127. Calcium is 5.0. Albumin is 2.2. Blood urine and sputum cultures are thus far negative. Chest x-ray shows proper placement of the endotracheal tube, and other catheters, and a small right pleural effusion. Progress note dated 10/23/2023. 72-year-old male who was admitted to the hospital on October 19, for systemic inflammatory response syndrome and rhabdomyolysis. The patient came to the intensive care unit, on the , was intubated on the . The patient remains on mechanical ventilator. His ventilator settings include the volume assist control, rate 24, tidal volume 400, FiO2 60%, and PEEP of 12. Her gases show pO2 of 63, pCO2 45, and pH is 7.35. The patient's on fentanyl at 0.5 mcg/kg/h, norepinephrine at 21 mcg/m, heparin via weightbase protocol, propofol at 40 mcg/kg/m, sodium bicarbonate drip with 3 ampules of sodium bicarbonate and D5W at 75 mL an hour, vital high protein at 20 mL an hour, with a goal of 38, and cefepime. Current labs include a white count 23.5, hemoglobin 8.6, hematocrit 24.7, and a platelet count of 130,000. Sodium 133, potassium 5.2, chlorides 98, CO2 22, anion gap 13, BUN 43, creatinine 4.65. Calcium is 5.3. Ionized calcium is 3.1, albumin is 2.1, creatine kinase is 37,839. Sputum samples are positive for Kamilah albicans. Chest x-ray shows a small right pleural effusion, and some basilar atelectasis. Objective - Vital Signs Vital signs: Vital Signs Temp 97 F L 11/28/23 08:00 Pulse 80 10/23/23 09:45 Resp 11 L 10/23/23 09:45 BP 120/56 10/23/23 09:45 Pulse Ox 94 L 10/23/23 09:45 FiO2 60 10/23/23 08:57 Intake & Output 10/22/23 10/23/23 10/23/23 18:59 06:59 18:59 Intake Total 2311.295 2092.956 446.518 Output Total 1795 8 3 Balance 983.532 4077.956 443.518 Weight 115.3 kg 115.7 kg Intake: IV 1145 910 300 Calcium Gluconate in NaCl 100 2 gm In Saline 1 100ml. bag @ 100 mls/hr IVPB ONCE ONE Rx#:[id number] Cefepime 1 gm In Sodium 50 50 Chloride 0.9% 50 ml @ 12. 5 mls/hr IVPB Q24HR [facility] Rx#:[id number] Dextrose 5% in Water 1, 50 000 ml @ 50 mls/hr IV . Q23H [facility] with Sodium Bicarb (1 Meq/ml) 150 ml Rx#:[id number] Dextrose 5% in Water 1, 875 900 150 000 ml @ 75 mls/hr IV . [id number] [facility] with Sodium Bicarb (1 Meq/ml) 150 ml Rx#:[id number] Sodium Chloride 0.9% @ 10 120 10 50 Intake, IV Titration 686.295 942.956 46.518 Amount Heparin Sod,Pork in 0.45% 250 NaCl 25,000 unit In 0.45 % NaCl 1 250ml.bag @ 10. 254 UNITS/KG/HR 10 mls/hr IV .Q24H [facility] Rx#: [id number] Norepinephrine 8 mg In 299.012 278.569 Sodium Chloride 0.9% 250 ml @ 0.03 MCG/KG/MIN 5. 661 mls/hr IV .Q24H [facility] Rx#:[id number] Sodium Chloride 0.9% 80 84.03 ml @ 0.5 MCG/KG/HR 4.876 mls/hr IV .[id number] [facility] with fentaNYL (PF) 1,000 mcg Rx#:[id number] propofoL 1,000 mg In 387.283 330.357 46.518 Empty Bag 1 bag @ 15 MCG/ KG/MIN 8.777 mls/hr IV . [id number] [facility] Rx#:[id number] Tube Feeding 50 180 70 Hemodialysis 400 Other 30 60 30 Output: Urine 20 8 3 Hemodialysis 1775 Other: Voiding Method Indwelling Catheter Indwelling Catheter # Bowel Movements 2 1 ABP, PAP, CO, CI - Last Documented Arterial Blood Pressure 125/42 - Exam No acute distress, sedated, with an orally placed endotracheal tube and NG tube. HEENT examination is grossly unremarkable. Neck supple. Full range of motion. No adenopathy thyromegaly or neck vein distention. Cardiovascular examination reveals regular rhythm rate. S1-S2 normal. No S3 or S4. No discernible murmur noted. Heart sounds are distant. Heart rate 77 bpm. Lungs reveal scattered bilateral rhonchi and crackles. Breath sounds are equal. No wheezes. Saturations are 94 %. Abdomen soft with bowel sounds. No masses or tenderness. Extremities are intact. No cyanosis clubbing or edema. Skin is without rash or lesion. Neurologic examination cannot be assessed at this time. - Labs CBC & Chem 7: 10/23/23 04:18 10/23/23 04:18 Labs: Abnormal Lab Results - Last 24 Hours (Table) 10/22/23 10/23/23 10/23/23 Range/Units 06:55 00:19 04:18 WBC (3.8-10.6) k/uL RBC (4.30-5.90) m/uL Hgb (13.0-17.5) gm/dL Hct (39.0-53.0) % Plt Count (150-450) k/uL Neutrophils # (1.3-7.7) k/uL Lymphocytes # (1.0-4.8) k/uL APTT (22.0-30.0) sec ABG pO2 (83-108) mmHg ABG Total CO2 (19-24) mmol/L ABG O2 Saturation (94-97) % Sodium 133 L (137-145) mmol/L Potassium 5.2 H (3.5-5.1) mmol/L BUN 43 H (9-20) mg/dL Creatinine 4.65 H (0.66-1.25) mg/dL Glucose 151 H (74-99) mg/dL POC Glucose (mg/dL) 139 H (70-110) mg/dL Calcium 5.3 L* (8.4-10.2) mg/dL Ionized Calcium Rich (4.5-5.3) mg/dL Phosphorus 9.2 H* 9.6 H* (2.5-4.5) mg/dL AST 1026 H (17-59) U/L ALT 109 H (4-49) U/L Alkaline Phosphatase 141 H (38-126) U/L Creatine Kinase 24180 H* (55-170) U/L Total Protein 4.7 L (6.3-8.2) g/dL Albumin 2.1 L (3.5-5.0) g/dL 10/23/23 10/23/23 10/23/23 Range/Units 04:18 04:18 04:23 WBC 23.5 H (3.8-10.6) k/uL RBC 2.82 L (4.30-5.90) m/uL Hgb 8.6 L (13.0-17.5) gm/dL Hct 24.7 L (39.0-53.0) % Plt Count 130 L (150-450) k/uL Neutrophils # 22.3 H (1.3-7.7) k/uL Lymphocytes # 0.5 L (1.0-4.8) k/uL APTT 57.3 H (22.0-30.0) sec ABG pO2 (83-108) mmHg ABG Total CO2 (19-24) mmol/L ABG O2 Saturation (94-97) % Sodium (137-145) mmol/L Potassium (3.5-5.1) mmol/L BUN (9-20) mg/dL Creatinine (0.66-1.25) mg/dL Glucose (74-99) mg/dL POC Glucose (mg/dL) 182 H (70-110) mg/dL Calcium (8.4-10.2) mg/dL Ionized Calcium Rich (4.5-5.3) mg/dL Phosphorus (2.5-4.5) mg/dL AST (17-59) U/L ALT (4-49) U/L Alkaline Phosphatase (38-126) U/L Creatine Kinase (55-170) U/L Total Protein (6.3-8.2) g/dL Albumin (3.5-5.0) g/dL 10/23/23 10/23/23 10/23/23 Range/Units 04:58 05:38 10:08 WBC (3.8-10.6) k/uL RBC (4.30-5.90) m/uL Hgb (13.0-17.5) gm/dL Hct (39.0-53.0) % Plt Count (150-450) k/uL Neutrophils # (1.3-7.7) k/uL Lymphocytes # (1.0-4.8) k/uL APTT (22.0-30.0) sec ABG pO2 63 L (83-108) mmHg ABG Total CO2 26 H (19-24) mmol/L ABG O2 Saturation 90.5 L (94-97) % Sodium (137-145) mmol/L Potassium (3.5-5.1) mmol/L BUN (9-20) mg/dL Creatinine (0.66-1.25) mg/dL Glucose (74-99) mg/dL POC Glucose (mg/dL) 236 H (70-110) mg/dL Calcium (8.4-10.2) mg/dL Ionized Calcium Rich 3.1 L* (4.5-5.3) mg/dL Phosphorus (2.5-4.5) mg/dL AST (17-59) U/L ALT (4-49) U/L Alkaline Phosphatase (38-126) U/L Creatine Kinase (55-170) U/L Total Protein (6.3-8.2) g/dL Albumin (3.5-5.0) g/dL Microbiology - Last 24 Hours (Table) 10/19/23 12:34 Blood Culture - Preliminary Blood 10/19/23 12:23 Blood Culture - Preliminary Blood 10/21/23 04:30 Gram Stain - Preliminary Sputum Sputum Culture - Preliminary Kamilah albicans Assessment and Plan Assessment: Acute hypoxemic respiratory failure secondary to sepsis/septic shock, and rhabdomyolysis. Status post intubation and mechanical ventilation, 10/19/2023. Bilateral lower extremity critical limb ischemia, status post extensive surgery. Bilateral popliteal and tibial artery thrombosis. Bilateral superficial femoral artery occlusions. Acute rhabdomyolysis. Acute renal failure/acute tubular necrosis. Acute metabolic acidosis. CAD, with previous myocardial infarction. Type 2 diabetes mellitus. Bilateral lower extremity cellulitis. History of colitis. Recent coronavirus infection. Plan: Plan dated 10/22/2023. The patient continues on ventilatory support. The patient is on 90% FiO2, and PEEP of 10, with repeat being increased to 15 cm water. The patient also continues on IV heparin, propofol and fentanyl for sedation, and norepinephrine at 15 mcg/m. The patient is getting tube feedings with Nepro at 10 mL an hour. In addition, the patient continues on a sodium bicarbonate drip. Labs, x-rays, and medications are reviewed. Currently, the patient is too unstable, requiring too much support, to be able to be weaned off mechanical ventilation. In addition, dropping the FiO2 from 90%, to 80%, resulted in a very low saturation, having to increase the PEEP up to 15 from 10. Labs, x-rays, medications are all reviewed. Prognosis is certainly guarded. The patient continues on cefepime for the time being. Plan dated 10/23/2023. The patient is likely headed towards tracheostomy and PEG tube placement by the end of the week, if he does not show any improvement or progress. The patient continues on fentanyl, norepinephrine, IV heparin, cefepime, propofol, and sodium bicarbonate drip. In addition, the patient may require hemodialysis again today. Previously, he was quite hypotensive with hemodialysis. He may need more norepinephrine during hemodialysis today. In addition, we had some fluconazole to his regimen. He continues on cefepime labs, x-rays, medications are reviewed. The patient's overall prognosis remains very guarded. Continue to see the patient on a daily basis, and make recommendations. Time with Patient: Greater than 30
[2023-10-23 12:02] LABS: Glucose,Whole Blood 169 mg/dL (70-110)
[2023-10-23] MEDS: INSULIN ASPART (NovoLOG) 100 UNIT/ML VIAL SQ SCH ×3 (12:44→20:40)
--- NOTE | 2023-10-23 14:56 | XR ---
EXAMINATION TYPE: XR chest 1V portable DATE OF EXAM: 10/23/2023 COMPARISON: 10/22/2023 INDICATION: Difficulty breathing TECHNIQUE: Single frontal view of the chest is obtained. FINDINGS: The heart size is normal. The pulmonary vasculature is normal. Scattered increased lung markings are on the right. Endotracheal tube tip is above luis. Left central venous catheter tip is within the proximal right atrium. Nasogastric tube transverses the thorax tip in the left upper quadrant of the abdomen. IMPRESSION: 1. Mild right midlung infiltrate. Follow-up is recommended. 2 lines and catheters discussed above
[2023-10-23] MEDS ORDERED: VANCOMYCIN IV PER PHARMACY 1 EACH MISC MISCELLANE PRN (15:01)
--- NOTE | 2023-10-23 15:01 | P.PN ---
Subjective Progress Note Date: 10/23/23 Principal diagnosis: Leukocytosis and lactic acidosis Patient is a 72-year-old male with multiple comorbidities including diabetes mellitus presented to the hospital with acute pain to bilateral lower extremity and this patient has been diagnosed with bilateral lower extremity critical limb ischemia bilateral popliteal and tibial artery thrombosis and bilateral superficial femoral artery occlusion status post open thrombectomy of bilateral popliteal superficial femoral and tibial arteries patient did have bilateral 4 compartment fasciotomy subsequently admitted to the ICU on the vent On today's evaluation that is 10/23/2023 patient remains to be afebrile, the pa tient remains to be intubated on the vent, FiO2 is up to 100%, no significant purulent secretions through the ET diarrhea or any other changes reported by the nursing staff patient did require increase in the pressor support for dialysis Patient did have a white count is 23.5, creatinine is 4.65 blood cultures are so far negative, sputum is growing gram-negative bacilli and staph aureus Objective - Vital Signs Vital signs: Vital Signs Temp 97 F L 10/23/23 08:00 Pulse 83 10/23/23 11:30 Resp 24 10/23/23 11:30 BP 124/58 10/23/23 11:30 Pulse Ox 92 L 10/23/23 11:30 FiO2 100 10/23/23 12:32 Intake & Output 10/22/23 10/23/23 10/23/23 18:59 06:59 18:59 Intake Total 2311.295 2092.956 939.774 Output Total 1795 8 3 Balance 413.388 2591.956 936.774 Weight 115.3 kg 115.7 kg Intake: IV 1145 910 470 Calcium Gluconate in NaCl 100 2 gm In Saline 1 100ml. bag @ 100 mls/hr IVPB ONCE ONE Rx#:[id number] Cefepime 1 gm In Sodium 50 50 Chloride 0.9% 50 ml @ 12. 5 mls/hr IVPB Q24HR [facility] Rx#:[id number] Dextrose 5% in Water 1, 150 000 ml @ 50 mls/hr IV . Q23H [facility] with Sodium Bicarb (1 Meq/ml) 150 ml Rx#:[id number] Dextrose 5% in Water 1, 875 900 150 000 ml @ 75 mls/hr IV . [id number] [facility] with Sodium Bicarb (1 Meq/ml) 150 ml Rx#:[id number] Fluconazole in NaCl,Iso- 50 Osm 100 mg In Saline 1 50ml.bag @ 50 mls/hr IVPB DAILY [facility] Rx#:[id number] Sodium Chloride 0.9% @ 10 120 10 70 Intake, IV Titration 686.295 942.956 309.774 Amount Heparin Sod,Pork in 0.45% 250 NaCl 25,000 unit In 0.45 % NaCl 1 250ml.bag @ 10. 254 UNITS/KG/HR 10 mls/hr IV .Q24H [facility] Rx#: [id number] Norepinephrine 8 mg In 299.012 278.569 210.595 Sodium Chloride 0.9% 250 ml @ 0.03 MCG/KG/MIN 5. 661 mls/hr IV .Q24H [facility] Rx#:[id number] Sodium Chloride 0.9% 80 84.03 ml @ 0.5 MCG/KG/HR 4.876 mls/hr IV .[id number] [facility] with fentaNYL (PF) 1,000 mcg Rx#:[id number] propofoL 1,000 mg In 387.283 330.357 99.179 Empty Bag 1 bag @ 15 MCG/ KG/MIN 8.777 mls/hr IV . [id number] [facility] Rx#:[id number] Tube Feeding 50 180 130 Hemodialysis 400 Other 30 60 30 Output: Urine 20 8 3 Hemodialysis 1775 Other: Voiding Method Indwelling Catheter Indwelling Catheter # Bowel Movements 2 1 ABP, PAP, CO, CI - Last Documented Arterial Blood Pressure 121/42 - Exam GENERAL DESCRIPTION: An elderly male intubated on the vent RESPIRATORY SYSTEM: Unlabored breathing , decreased breath sounds at bases HEART: S1 S2 regular rate and rhythm , ABDOMEN: Soft , no tenderness EXTREMITIES: Bilateral lower extremities currently dressed - Labs CBC & Chem 7: 10/23/23 04:18 10/23/23 04:18 Labs: Abnormal Lab Results - Last 24 Hours (Table) 10/23/23 10/23/23 10/23/23 Range/Units 00:19 04:18 04:18 WBC (3.8-10.6) k/uL RBC (4.30-5.90) m/uL Hgb (13.0-17.5) gm/dL Hct (39.0-53.0) % Plt Count (150-450) k/uL Neutrophils # (1.3-7.7) k/uL Lymphocytes # (1.0-4.8) k/uL APTT 57.3 H (22.0-30.0) sec ABG pO2 (83-108) mmHg ABG Total CO2 (19-24) mmol/L ABG O2 Saturation (94-97) % Sodium 133 L (137-145) mmol/L Potassium 5.2 H (3.5-5.1) mmol/L BUN 43 H (9-20) mg/dL Creatinine 4.65 H (0.66-1.25) mg/dL Glucose 151 H (74-99) mg/dL POC Glucose (mg/dL) 139 H (70-110) mg/dL Calcium 5.3 L* (8.4-10.2) mg/dL Ionized Calcium Rich (4.5-5.3) mg/dL Phosphorus 9.6 H* (2.5-4.5) mg/dL AST 1026 H (17-59) U/L ALT 109 H (4-49) U/L Alkaline Phosphatase 141 H (38-126) U/L Creatine Kinase 71477 H* (55-170) U/L Total Protein 4.7 L (6.3-8.2) g/dL Albumin 2.1 L (3.5-5.0) g/dL 10/23/23 10/23/23 10/23/23 Range/Units 04:18 04:23 04:58 WBC 23.5 H (3.8-10.6) k/uL RBC 2.82 L (4.30-5.90) m/uL Hgb 8.6 L (13.0-17.5) gm/dL Hct 24.7 L (39.0-53.0) % Plt Count 130 L (150-450) k/uL Neutrophils # 22.3 H (1.3-7.7) k/uL Lymphocytes # 0.5 L (1.0-4.8) k/uL APTT (22.0-30.0) sec ABG pO2 (83-108) mmHg ABG Total CO2 (19-24) mmol/L ABG O2 Saturation (94-97) % Sodium (137-145) mmol/L Potassium (3.5-5.1) mmol/L BUN (9-20) mg/dL Creatinine (0.66-1.25) mg/dL Glucose (74-99) mg/dL POC Glucose (mg/dL) 182 H (70-110) mg/dL Calcium (8.4-10.2) mg/dL Ionized Calcium Rich 3.1 L* (4.5-5.3) mg/dL Phosphorus (2.5-4.5) mg/dL AST (17-59) U/L ALT (4-49) U/L Alkaline Phosphatase (38-126) U/L Creatine Kinase (55-170) U/L Total Protein (6.3-8.2) g/dL Albumin (3.5-5.0) g/dL 10/23/23 10/23/23 10/23/23 Range/Units 05:38 10:08 12:01 WBC (3.8-10.6) k/uL RBC (4.30-5.90) m/uL Hgb (13.0-17.5) gm/dL Hct (39.0-53.0) % Plt Count (150-450) k/uL Neutrophils # (1.3-7.7) k/uL Lymphocytes # (1.0-4.8) k/uL APTT (22.0-30.0) sec ABG pO2 63 L (83-108) mmHg ABG Total CO2 26 H (19-24) mmol/L ABG O2 Saturation 90.5 L (94-97) % Sodium (137-145) mmol/L Potassium (3.5-5.1) mmol/L BUN (9-20) mg/dL Creatinine (0.66-1.25) mg/dL Glucose (74-99) mg/dL POC Glucose (mg/dL) 236 H 169 H (70-110) mg/dL Calcium (8.4-10.2) mg/dL Ionized Calcium Rich (4.5-5.3) mg/dL Phosphorus (2.5-4.5) mg/dL AST (17-59) U/L ALT (4-49) U/L Alkaline Phosphatase (38-126) U/L Creatine Kinase (55-170) U/L Total Protein (6.3-8.2) g/dL Albumin (3.5-5.0) g/dL Microbiology - Last 24 Hours (Table) 10/21/23 04:30 Gram Stain - Preliminary Sputum Sputum Culture - Preliminary Kamilah albicans Gram Neg Bacilli Presumptive Staph aureus 10/19/23 12:34 Blood Culture - Preliminary Blood 10/19/23 12:23 Blood Culture - Preliminary Blood Assessment and Plan (1) SIRS (systemic inflammatory response syndrome) Current Visit: Yes Status: Acute Code(s): R65.10 - SIRS OF NON-INFECTIOUS ORIGIN W/O ACUTE ORGAN DYSFUNCTION SNOMED Code(s): 831806973 Plan: 1patient with fever and looks status is in this patient with initial presentation to the hospital with bilateral lower extremity pain, patient has been diagnosed with the critical ischemia to bilateral lower extremity with evidence of acute thrombosis of the bilateral popliteal and tibial and superficial femoral artery s/p open thrombectomy selective bilateral tibial artery angiogram and bilateral 4 compartment fasciotomy 2patient with likely component of pneumonia sputum is showing gram-negative bacilli and staph aureus patient is covered with cefepime well and vancomycin while waiting for sensitivity on staph aureus, Zyvox could not be added because of interaction with fentanyl and monitor clinical course closely Dictation was produced using [employer] dictation software. please excuse any grammatical, word or spelling errors. Time with Patient: Less than 30
[2023-10-23] MEDS ORDERED: VASOPRESSIN 60 UNIT in SODIUM CHLORIDE 0.9% 150 ML IV SCH (15:45)
[2023-10-23] MEDS ORDERED: VANCOMYCIN 1,750 MG in SODIUM CHLORIDE 0.9% 500 ML 500 ML IVPB ONE (16:00)
--- NOTE | 2023-10-23 16:08 | P.PN ---
Subjective Progress Note Date: 10/23/23 Patient remains in intensive care in critical condition. Underwent revascularization for acute bilateral critical limb ischemia and subsequent open fasciotomy bilaterally. Patient has temporary hemodialysis catheter in place and today was unable to tolerate full HD session due to decreased blood pressure. Remains on levophed which has been increased in rate and patient will be started on vasopression. He remains sedated with fentanyl, propofol. Continues on IV vancomycin, IV cefepime, IV fluconazole. Chest xray today reveals mild right midlung infiltrate. Labs today showing white count of 23.5, hemoglobin 8.6, sodium 133, potassium 5.2, BUN 43, creatinine 4.65, calcium 5.3, phosphorous 9.6, AST 1026, ALT 109, alk phos 141, creat kinase 37,839. Talked to the patients brother claudio in extent over the phone and would like pt to remain full code. Unable to complete review of systems patient is intubated and sedated. PHYSICAL EXAMINATION: GENERAL: The patient is sedated on mechanical, not in any acute distress. Well developed, well nourished. HEENT: Pupils are round and equally reacting to light. EOMI. No scleral icterus. No conjunctival pallor. Normocephalic, atraumatic. No pharyngeal erythema. No thyromegaly. CARDIOVASCULAR: S1 and S2 present. No murmurs, rubs, or gallops. PULMONARY: Diminished ABDOMEN: Soft, nontender, nondistended, normoactive bowel sounds. No palpable organomegaly. MUSCULOSKELETAL: No joint swelling or deformity. EXTREMITIES: No cyanosis, clubbing, or pedal edema. NEUROLOGICAL: Unable to assess SKIN: No rashes. Weeping wound to the left leg. Dressings intact. Assessment Bilateral lower extremity critical limb ischemia nhi class II s/p revasc ularization with open thrombectomy due to acute thrombosis of the bilateral popliteal and tibial and superficial femoral artery. Subsequent compartment fasciotomy Severe Sepsis and septic shock Acute hypoxic respiratory failure secondary to above Lactic acidosis and leukocytosis Acute kidney injury due to acute tubular necrosis from sepsis and hypovolemia Acute Rhabdomyolysis Hyperkalemia due to karolina Hypocalcemia Elevated troponin COVID-19 infection prior hospital stay Diabetes mellitus, with hyperglycemia Hypothyroidism Hypertension Hyperlipidemia History of osteoarthritis History of coronary artery disease status post CABG DVT prophylaxis with IV heparin Full Code Plan Continue on anticoagulation and local wound care Remains in intensive care unit on pressor support Continues on IV cefepime, IV vancomycin and has been started on IV fluconazole Continue on bicarb gtt rate has been decreased Hemodialysis per nephrology unable to tolerate session today due to hypotension Continue ventilator support per sales representative uniforms Continue enteral nutrition Electrolyte supplementation Talk with patients brother Claudio over the phone regarding plan of care Total time spent in coordination of care with family over 35 minutes. The impression and plan of care has been dictated by Fe Fair, Nurse Practitioner as directed. Dr. Joe MD I have performed a history and physical examination and medical decision making of this patient, discussed the same with the dictator, and agree with the dictators assessment and plan as written, documented as a scribe. Based on total visit time, I have performed more than 50% of this visit. Objective - Vital Signs Vital signs: Vital Signs Temp 97.6 F 10/23/23 14:34 Pulse 81 10/23/23 15:15 Resp 30 H 10/23/23 15:15 BP 99/50 10/23/23 15:15 Pulse Ox 95 10/23/23 15:00 FiO2 100 10/23/23 12:32 Intake & Output 10/22/23 10/23/23 10/23/23 18:59 06:59 18:59 Intake Total 2311.295 2092.956 1860.820 Output Total 1795 8 960 Balance 758.201 4905.956 900.820 Weight 115.3 kg 115.7 kg Intake: IV 1145 910 700 Calcium Gluconate in NaCl 100 2 gm In Saline 1 100ml. bag @ 100 mls/hr IVPB ONCE ONE Rx#:[id number] Cefepime 1 gm In Sodium 50 50 Chloride 0.9% 50 ml @ 12. 5 mls/hr IVPB Q24HR [facility] Rx#:[id number] Dextrose 5% in Water 1, 300 000 ml @ 50 mls/hr IV . Q23H [facility] with Sodium Bicarb (1 Meq/ml) 150 ml Rx#:[id number] Dextrose 5% in Water 1, 875 900 150 000 ml @ 75 mls/hr IV . [id number] [facility] with Sodium Bicarb (1 Meq/ml) 150 ml Rx#:[id number] Fluconazole in NaCl,Iso- 100 Osm 100 mg In Saline 1 50ml.bag @ 50 mls/hr IVPB DAILY [facility] Rx#:[id number] Sodium Chloride 0.9% @ 10 120 10 100 Intake, IV Titration 686.295 942.956 480.820 Amount Heparin Sod,Pork in 0.45% 250 NaCl 25,000 unit In 0.45 % NaCl 1 250ml.bag @ 10. 254 UNITS/KG/HR 10 mls/hr IV .Q24H [facility] Rx#: [id number] Norepinephrine 8 mg In 299.012 278.569 289.191 Sodium Chloride 0.9% 250 ml @ 0.03 MCG/KG/MIN 5. 661 mls/hr IV .Q24H [facility] Rx#:[id number] Sodium Chloride 0.9% 80 84.03 ml @ 0.5 MCG/KG/HR 4.876 mls/hr IV .[id number] [facility] with fentaNYL (PF) 1,000 mcg Rx#:[id number] propofoL 1,000 mg In 387.283 330.357 191.629 Empty Bag 1 bag @ 15 MCG/ KG/MIN 8.777 mls/hr IV . [id number] [facility] Rx#:[id number] Tube Feeding 50 180 220 Hemodialysis 400 400 Other 30 60 60 Output: Urine 20 8 3 Hemodialysis 1775 957 Other: Voiding Method Indwelling Catheter Indwelling Catheter # Bowel Movements 2 1 ABP, PAP, CO, CI - Last Documented Arterial Blood Pressure 92/40 - Labs CBC & Chem 7: 10/23/23 04:18 10/23/23 04:18 Labs: Abnormal Lab Results - Last 24 Hours (Table) 10/23/23 10/23/23 10/23/23 Range/Units 00:19 04:18 04:18 WBC (3.8-10.6) k/uL RBC (4.30-5.90) m/uL Hgb (13.0-17.5) gm/dL Hct (39.0-53.0) % Plt Count (150-450) k/uL Neutrophils # (1.3-7.7) k/uL Lymphocytes # (1.0-4.8) k/uL APTT 57.3 H (22.0-30.0) sec ABG pO2 (83-108) mmHg ABG Total CO2 (19-24) mmol/L ABG O2 Saturation (94-97) % Sodium 133 L (137-145) mmol/L Potassium 5.2 H (3.5-5.1) mmol/L BUN 43 H (9-20) mg/dL Creatinine 4.65 H (0.66-1.25) mg/dL Glucose 151 H (74-99) mg/dL POC Glucose (mg/dL) 139 H (70-110) mg/dL Calcium 5.3 L* (8.4-10.2) mg/dL Ionized Calcium Rich (4.5-5.3) mg/dL Phosphorus 9.6 H* (2.5-4.5) mg/dL AST 1026 H (17-59) U/L ALT 109 H (4-49) U/L Alkaline Phosphatase 141 H (38-126) U/L Creatine Kinase 17238 H* (55-170) U/L Total Protein 4.7 L (6.3-8.2) g/dL Albumin 2.1 L (3.5-5.0) g/dL 10/23/23 10/23/23 10/23/23 Range/Units 04:18 04:23 04:58 WBC 23.5 H (3.8-10.6) k/uL RBC 2.82 L (4.30-5.90) m/uL Hgb 8.6 L (13.0-17.5) gm/dL Hct 24.7 L (39.0-53.0) % Plt Count 130 L (150-450) k/uL Neutrophils # 22.3 H (1.3-7.7) k/uL Lymphocytes # 0.5 L (1.0-4.8) k/uL APTT (22.0-30.0) sec ABG pO2 (83-108) mmHg ABG Total CO2 (19-24) mmol/L ABG O2 Saturation (94-97) % Sodium (137-145) mmol/L Potassium (3.5-5.1) mmol/L BUN (9-20) mg/dL Creatinine (0.66-1.25) mg/dL Glucose (74-99) mg/dL POC Glucose (mg/dL) 182 H (70-110) mg/dL Calcium (8.4-10.2) mg/dL Ionized Calcium Rich 3.1 L* (4.5-5.3) mg/dL Phosphorus (2.5-4.5) mg/dL AST (17-59) U/L ALT (4-49) U/L Alkaline Phosphatase (38-126) U/L Creatine Kinase (55-170) U/L Total Protein (6.3-8.2) g/dL Albumin (3.5-5.0) g/dL 10/23/23 10/23/23 10/23/23 Range/Units 05:38 10:08 12:01 WBC (3.8-10.6) k/uL RBC (4.30-5.90) m/uL Hgb (13.0-17.5) gm/dL Hct (39.0-53.0) % Plt Count (150-450) k/uL Neutrophils # (1.3-7.7) k/uL Lymphocytes # (1.0-4.8) k/uL APTT (22.0-30.0) sec ABG pO2 63 L (83-108) mmHg ABG Total CO2 26 H (19-24) mmol/L ABG O2 Saturation 90.5 L (94-97) % Sodium (137-145) mmol/L Potassium (3.5-5.1) mmol/L BUN (9-20) mg/dL Creatinine (0.66-1.25) mg/dL Glucose (74-99) mg/dL POC Glucose (mg/dL) 236 H 169 H (70-110) mg/dL Calcium (8.4-10.2) mg/dL Ionized Calcium Rich (4.5-5.3) mg/dL Phosphorus (2.5-4.5) mg/dL AST (17-59) U/L ALT (4-49) U/L Alkaline Phosphatase (38-126) U/L Creatine Kinase (55-170) U/L Total Protein (6.3-8.2) g/dL Albumin (3.5-5.0) g/dL Microbiology - Last 24 Hours (Table) 10/21/23 04:30 Gram Stain - Preliminary Sputum Sputum Culture - Preliminary Kamilah albicans Gram Neg Bacilli Presumptive Staph aureus 10/19/23 12:34 Blood Culture - Preliminary Blood 10/19/23 12:23 Blood Culture - Preliminary Blood Assessment and Plan Time with Patient: Greater than 30
[2023-10-23] MEDS: SODIUM CHLORIDE 0.9% 80 ML with fentaNYL (PF) 1,000 MCG IV SCH ×2 (16:20)
[2023-10-23 16:56] LABS: Glucose,Whole Blood 84 mg/dL (70-110)
[2023-10-23 20:12] VITALS: RESP 24
[2023-10-23 20:37] LABS: Glucose,Whole Blood 42 mg/dL (70-110)
[2023-10-23 20:37] LABS: Glucose,Whole Blood 43 mg/dL (70-110)
[2023-10-23 21:33] LABS: Glucose,Whole Blood 102 mg/dL (70-110)
[2023-10-23] MEDS ORDERED: DOPamine DRIP 800 MG in DEXTROSE/WATER 1 250ML.BAG IV SCH (23:15)
[2023-10-23 23:47] LABS: Glucose,Whole Blood 89 mg/dL (70-110)
[2023-10-24] MEDS: INSULIN ASPART (NovoLOG) 100 UNIT/ML VIAL SQ SCH (00:20)
[2023-10-24] MEDS: NOREPINEPHRINE 8 MG in SODIUM CHLORIDE 0.9% 250 ML IV SCH (00:55)
[2023-10-24 01:08] LABS: Blood Urea Nitrogen 27 mg/dL (9-20); Chloride 94 mmol/L (98-107); Glucose 69 mg/dL (74-99); Sodium 131 mmol/L (137-145)
[2023-10-24 01:33] VITALS: TEMP 96.1
[2023-10-24 01:54] LABS: Carbon Dioxide <5 mmol/L (22-30); Potassium 9.1 mmol/L (3.5-5.1)
[2023-10-24 02:55] VITALS: BP 78/34; PULSE 43
[2023-10-24 03:31] LABS: African American GFR (CKD) 15 (>60 ml/min/1.73 sqM); Non-African American GFR(CKD) 13 (>60 ml/min/1.73 sqM)
--- NOTE | 2023-10-24 06:28 | P.PN ---
Subjective Progress Note Date: 10/23/23 Principal diagnosis: Acute bilateral critical limb ischemia Patient is seen and examined today as a follow-up in the ICU. He remains intubated and sedated.nursing reports no significant bleeding from the fasciotomy sites throughout the night. He has left groin temporary dialysis catheter, right groin incision with dressing in place. No acute changes through the night. Objective - Vital Signs Vital signs: Vital Signs Temp 97.6 F 10/23/23 14:34 Pulse 93 10/23/23 14:34 Resp 27 H 10/23/23 14:34 BP 119/64 10/23/23 14:34 Pulse Ox 95 10/23/23 14:30 FiO2 100 10/23/23 12:32 Intake & Output 10/22/23 10/23/23 10/23/23 18:59 06:59 18:59 Intake Total 2311.295 2092.956 1829.369 Output Total 1795 8 960 Balance 831.199 9719.956 869.369 Weight 115.3 kg 115.7 kg Intake: IV 1145 910 700 Calcium Gluconate in NaCl 100 2 gm In Saline 1 100ml. bag @ 100 mls/hr IVPB ONCE ONE Rx#:[id number] Cefepime 1 gm In Sodium 50 50 Chloride 0.9% 50 ml @ 12. 5 mls/hr IVPB Q24HR [facility] Rx#:[id number] Dextrose 5% in Water 1, 300 000 ml @ 50 mls/hr IV . Q23H [facility] with Sodium Bicarb (1 Meq/ml) 150 ml Rx#:[id number] Dextrose 5% in Water 1, 875 900 150 000 ml @ 75 mls/hr IV . [id number] [facility] with Sodium Bicarb (1 Meq/ml) 150 ml Rx#:[id number] Fluconazole in NaCl,Iso- 100 Osm 100 mg In Saline 1 50ml.bag @ 50 mls/hr IVPB DAILY [facility] Rx#:[id number] Sodium Chloride 0.9% @ 10 120 10 100 Intake, IV Titration 686.295 942.956 449.369 Amount Heparin Sod,Pork in 0.45% 250 NaCl 25,000 unit In 0.45 % NaCl 1 250ml.bag @ 10. 254 UNITS/KG/HR 10 mls/hr IV .Q24H [facility] Rx#: [id number] Norepinephrine 8 mg In 299.012 278.569 257.740 Sodium Chloride 0.9% 250 ml @ 0.03 MCG/KG/MIN 5. 661 mls/hr IV .Q24H [facility] Rx#:[id number] Sodium Chloride 0.9% 80 84.03 ml @ 0.5 MCG/KG/HR 4.876 mls/hr IV .[id number] [facility] with fentaNYL (PF) 1,000 mcg Rx#:[id number] propofoL 1,000 mg In 387.283 330.357 191.629 Empty Bag 1 bag @ 15 MCG/ KG/MIN 8.777 mls/hr IV . [id number] [facility] Rx#:[id number] Tube Feeding 50 180 220 Hemodialysis 400 400 Other 30 60 60 Output: Urine 20 8 3 Hemodialysis 1775 957 Other: Voiding Method Indwelling Catheter Indwelling Catheter # Bowel Movements 2 1 ABP, PAP, CO, CI - Last Documented Arterial Blood Pressure 105/45 - Exam General appearance: The patient sedated and intubated on mechanical ventilation. HET: Head is normocephalic and atraumatic. Neck: Supple. Heart: Regular. Lungs: Equal expansion.. Abdomen: Soft, nondistended. Extremities: Right groin incision with dressing clean dry andintact. Left groin with temporary hemodialysis catheter. Bilateral lower extremities with dressingsin place. Left toes cool to touch with ischemic changeshowever no changes from before, right foot warm to touch with areas of ischemic changes on toes, again no changes from prior. No mottling noted down lower extremities. Neurological: Sedated and intubated. - Labs CBC & Chem 7: 10/23/23 04:18 10/23/23 23:47 Labs: Abnormal Lab Results - Last 24 Hours (Table) 10/23/23 10/23/23 10/23/23 Range/Units 00:19 04:18 04:18 WBC (3.8-10.6) k/uL RBC (4.30-5.90) m/uL Hgb (13.0-17.5) gm/dL Hct (39.0-53.0) % Plt Count (150-450) k/uL Neutrophils # (1.3-7.7) k/uL Lymphocytes # (1.0-4.8) k/uL APTT 57.3 H (22.0-30.0) sec ABG pO2 (83-108) mmHg ABG Total CO2 (19-24) mmol/L ABG O2 Saturation (94-97) % Sodium 133 L (137-145) mmol/L Potassium 5.2 H (3.5-5.1) mmol/L BUN 43 H (9-20) mg/dL Creatinine 4.65 H (0.66-1.25) mg/dL Glucose 151 H (74-99) mg/dL POC Glucose (mg/dL) 139 H (70-110) mg/dL Calcium 5.3 L* (8.4-10.2) mg/dL Ionized Calcium Rich (4.5-5.3) mg/dL Phosphorus 9.6 H* (2.5-4.5) mg/dL AST 1026 H (17-59) U/L ALT 109 H (4-49) U/L Alkaline Phosphatase 141 H (38-126) U/L Creatine Kinase 02067 H* (55-170) U/L Total Protein 4.7 L (6.3-8.2) g/dL Albumin 2.1 L (3.5-5.0) g/dL 10/23/23 10/23/23 10/23/23 Range/Units 04:18 04:23 04:58 WBC 23.5 H (3.8-10.6) k/uL RBC 2.82 L (4.30-5.90) m/uL Hgb 8.6 L (13.0-17.5) gm/dL Hct 24.7 L (39.0-53.0) % Plt Count 130 L (150-450) k/uL Neutrophils # 22.3 H (1.3-7.7) k/uL Lymphocytes # 0.5 L (1.0-4.8) k/uL APTT (22.0-30.0) sec ABG pO2 (83-108) mmHg ABG Total CO2 (19-24) mmol/L ABG O2 Saturation (94-97) % Sodium (137-145) mmol/L Potassium (3.5-5.1) mmol/L BUN (9-20) mg/dL Creatinine (0.66-1.25) mg/dL Glucose (74-99) mg/dL POC Glucose (mg/dL) 182 H (70-110) mg/dL Calcium (8.4-10.2) mg/dL Ionized Calcium Rich 3.1 L* (4.5-5.3) mg/dL Phosphorus (2.5-4.5) mg/dL AST (17-59) U/L ALT (4-49) U/L Alkaline Phosphatase (38-126) U/L Creatine Kinase (55-170) U/L Total Protein (6.3-8.2) g/dL Albumin (3.5-5.0) g/dL 10/23/23 10/23/23 10/23/23 Range/Units 05:38 10:08 12:01 WBC (3.8-10.6) k/uL RBC (4.30-5.90) m/uL Hgb (13.0-17.5) gm/dL Hct (39.0-53.0) % Plt Count (150-450) k/uL Neutrophils # (1.3-7.7) k/uL Lymphocytes # (1.0-4.8) k/uL APTT (22.0-30.0) sec ABG pO2 63 L (83-108) mmHg ABG Total CO2 26 H (19-24) mmol/L ABG O2 Saturation 90.5 L (94-97) % Sodium (137-145) mmol/L Potassium (3.5-5.1) mmol/L BUN (9-20) mg/dL Creatinine (0.66-1.25) mg/dL Glucose (74-99) mg/dL POC Glucose (mg/dL) 236 H 169 H (70-110) mg/dL Calcium (8.4-10.2) mg/dL Ionized Calcium Rich (4.5-5.3) mg/dL Phosphorus (2.5-4.5) mg/dL AST (17-59) U/L ALT (4-49) U/L Alkaline Phosphatase (38-126) U/L Creatine Kinase (55-170) U/L Total Protein (6.3-8.2) g/dL Albumin (3.5-5.0) g/dL Microbiology - Last 24 Hours (Table) 10/21/23 04:30 Gram Stain - Preliminary Sputum Sputum Culture - Preliminary Kamilah albicans Gram Neg Bacilli Presumptive Staph aureus 10/19/23 12:34 Blood Culture - Preliminary Blood 10/19/23 12:23 Blood Culture - Preliminary Blood Assessment and Plan Assessment: 1. Acute bilateral critical limb ischemia status post revascularization 2. Acute renal failure secondary to above 3. Leukocytosis 4. Lactic acidosis secondary to #1 Plan: 1. Continue ICU care 2. Daily dressing changes, wet-to-dry to bilateral fasciotomy sites 3. Wait for further demarcation for potential need for site amputation. Multiphasic signals. Consider potential stage closure in the future. Thank you for this consultation, we will continue to follow. The impression and plan of care has been dictated as directed. Dr. Brady I performed a history and examination of this patient, discussed the same with the dictator. I agree with the dictator's note ,documented as a scribe. Any additional findings or plans will be noted.
[2023-10-24] MEDS ORDERED: VANCOMYCIN 1,500 MG in SODIUM CHLORIDE 0.9% 500 ML 500 ML IVPB ONE (12:00)
--- NOTE | 2023-10-24 17:22 | P.DS ---
Providers Date of admission: 10/19/23 12:47 Attending physician: Mariano Sanchez Consults: 10/19/23 12:24 Consult Physician Routine Consulting Provider: Thierno Aguilar Consult Reason/Comments: sepsis Do you want consulting provider notified?: Yes Consult Physician Routine Consulting Provider: Dara Talamantes Consult Reason/Comments: karolina Do you want consulting provider notified?: Yes 10/19/23 12:56 Consult Physician Routine Consulting Provider: Alivia Tripp Consult Reason/Comments: weak pulses Do you want consulting provider notified?: Yes 10/19/23 14:46 Consult Physician Routine Consulting Provider: Bradford Shine Consult Reason/Comments: sepsis, acute limb ischemia Do you want consulting provider notified?: Yes 10/19/23 22:11 Consult Physician Routine Consulting Provider: Dara Talamantes Consult Reason/Comments: Dialysis Do you want consulting provider notified?: Yes 10/23/23 23:27 Consult Physician Urgent Consulting Provider: Trey Jett Consult Reason/Comments: atrial fibrillation slow ventricular response Do you want consulting provider notified?: Yes Primary care physician: Zaida Horton Hospital Course: Final Diagnosis Bilateral lower extremity critical limb ischemia nhi class II/III s/p revascularization with open thrombectomy due to acute thrombosis of the bilateral popliteal and tibial and superficial femoral artery. Subsequent compartment fasciotomy Severe Sepsis and septic shock Acute hypoxic respiratory failure secondary to above ventilator dependent respiratory failure Lactic acidosis and leukocytosis Acute kidney injury due to acute tubular necrosis from sepsis and hypovolemia Acute Rhabdomyolysis status post fasciotomy Hyperkalemia due to karolina Hypocalcemia Elevated troponin COVID-19 infection prior hospital stay Diabetes mellitus, with hyperglycemia Hypothyroidism Hypertension Hyperlipidemia History of osteoarthritis History of coronary artery disease status post CABG Patient on 10/24/23 at 0149. Preliminary cause of Septic/hypovolemic shock, acute renal failure, hyperkalemia Hospital Course patient is 72-year-old gentleman who is currently in long term has a past medical history of Coronary Artery Disease status post CABG , Heart Failure, Diabetes Mellitus, Hyperlipidemia, Hypertension, Syncope, thyroid disease, CT of the brain in September 2017 demonstrated old right lacunar infarct, Bipolar, PTSD was brought to the ER for generalized weakness. Patient is a poor historian. Most of the history has been taken from electronic medical records and from the patient, patient stated that he was complaining of weakness this morning after waking up from sleep. Patient stated that his legs were heavy on him and was unable to lift them off. Denied any pain in lower extremities. Denied any fe hussein or chills. There was no complain of nausea, vomiting abdominal pain. [facility]itentiary staff checked on the patient and found his blood sugars to be low and he was given some dextrose which improved his blood sugars. Patient was recently in the hospital at which time he was diagnosed with COVID-19 infection and was also found to have colitis. Patient was brought to the ER. Patient had elevated CK level of 8909, troponin level 0.055. sodium 147, BUN 53, creatinine 7.47, White count 18. In the ER, patient was found to have cold bilateral lower extremities, there was no pulses in lower extremities and there was mottling of the skin. Stat vascular surgery consult was requested and vascular surgery evaluated the patient recommended starting patient on heparin and initiating surgical intervention for acute bilateral lower extremity ischemia. Patient underwent Open thrombectomy of bilateral popliteal, superficial femoral, and tibial arteries, bilateral stenting of the SFA. Patient admitted to the ICU afterwards with consults to nephrology and pulmonology. Patient was started on temporary hemodialysis he also required vasopressor support. He had evidence of acute rhabdomyolysis and shock and was treated with pressor support and bicarb gtt and antibiotics. He was also given IV lasix. Patient was unable to tolerate HD and his pressure are decreased he maxed out on pressor support and continued to decline. Family made patient a no code. He in the ICU on 10/24/2023 at 0149. Thank you for allowing us to participate in the care of this patient. The impression and plan of care has been dictated by Fe Fair, Nurse Practitioner as directed. Dr. Joe MD I have performed a history and physical examination and medical decision making of this patient, discussed the same with the dictator, and agree with the dictators assessment and plan as written, documented as a scribe. Based on total visit time, I have performed more than 50% of this visit. Plan - Discharge Summary New Discharge Prescriptions: No Action metFORMIN HCL 500 mg PO TID Atorvastatin [Lipitor] 40 mg PO HS amLODIPine [Norvasc] 10 mg PO DAILY #30 tab Insulin Regular, Human [Novolin R] See Protocol SQ ACHS cefUROXime axetiL [Ceftin] 500 mg PO BID 10 Days #20 tab metroNIDAZOLE [Flagyl] 500 mg PO TID #30 tab Clopidogrel [Plavix] 75 mg PO DAILY Levothyroxine Sodium [Synthroid] 112 mcg PO DAILY Metoprolol Tartrate [Lopressor] 12.5 mg PO BID Pantoprazole [Protonix] 40 mg PO DAILY Memantine HCl [Namenda] 5 mg PO BID Loperamide HCl [Loperamide] 2 - 4 mg PO TID PRN PRN Reason: Diarrhea Discharge Medication List metFORMIN HCL 500 mg PO TID 02/06/19 [History] Atorvastatin [Lipitor] 40 mg PO HS 10/09/19 [History] amLODIPine [Norvasc] 10 mg PO DAILY #30 tab 11/09/22 [Rx] Metoprolol Tartrate [Lopressor] 12.5 mg PO BID 09/16/23 [History] Insulin Regular, Human [Novolin R] See Protocol SQ ACHS 10/07/23 [History] Pantoprazole [Protonix] 40 mg PO DAILY 10/07/23 [History] cefUROXime axetiL [Ceftin] 500 mg PO BID 10 Days #20 tab 10/12/23 [Rx] metroNIDAZOLE [Flagyl] 500 mg PO TID #30 tab 10/12/23 [Rx] Clopidogrel [Plavix] 75 mg PO DAILY 10/19/23 [History] Levothyroxine Sodium [Synthroid] 112 mcg PO DAILY 10/19/23 [History] Loperamide HCl [Loperamide] 2 - 4 mg PO TID PRN 10/19/23 [History] Memantine HCl [Namenda] 5 mg PO BID 10/19/23 [History] Follow up Appointment(s)/Referral(s): Sol Cerda MD [Primary Care Provider] - 1-2 days Discharge Disposition: - Preliminary Cause of Preliminary Cause of : Shock, acute renal failure, hyperkalemia
--- NOTE | 2023-10-25 11:24 | CDI ---
Documentation Clarification Form Date: 10/25/2023 11:03:38 AM From: Gretel Richardson Phone: Admit Date: 10/19/2023 12:47:00 PM Patient Name: Faisal Lozano Visit Number: [id number] Discharge Date: 10/24/2023 06:21:00 AM ATTENTION: The Clinical Documentation Specialists (CDI) and [facility] Coding Staff appreciate your assistance in clarifying documentation. Please respond to the clarification below the line at the bottom and electronically sign. The CDI & [facility] Coding staff will review the response and follow-up if needed. Please note: Queries are made part of the Legal Health Record. If you have any questions, please contact the author of this message via ITS. Dr. Evaristo Brady Acute Rhabdomyolysis is documented per OP Note. Additional clarification regarding the type of rhabdomyolysis is requested. History/Risk Factors: 72yo M, BLEcritical limb ischemias/p, acutethrombosisof the NISH popliteal, tibial & superficial femoral artery, severe sepsis w shock, AHRF, lactic acidosis, ATN,hypovolemia w shock, hyperkalemia, hypocalcemia, COVID not vacc, DMII w hypo/hyperglycemia, HTN, HLD, OA, CAD sp CABG, patient wasfounddown and unable to walk. Clinical Indicators: Creatine Kinase 8909 Treatment: compartmentfasciotomy, revascularization with openthrombectomy Please clarify the type of rhabdomyolysis, if known: [ ] Traumatic rhabdomyolysis due to fall [x ] Traumatic rhabdomyolysis due to prolonged immobility [ ] Non traumatic rhabdomyolysis due to infection (please specify) [ ] Other, please specify [ ] Unable to Determine (Template Last Revised: January 2021) MTDD
== END 2023-10-24 06:21 | disposition expired | DRG 853 ==
LOC: EC 11:06 → 2SICU 12:47
PROVIDERS: ADMIT Hospitalist; ATTEND Hospitalist
PROC: 04CL0ZZ Extirpation of Matter from Left Femoral Artery, Open Approach (ICD-10-PCS; 2023-10-19)
PROC: 04CK0ZZ Extirpation of Matter from Right Femoral Artery, Open Approach (ICD-10-PCS; 2023-10-19)
PROC: 04CQ0ZZ Extirpation of Matter from Left Anterior Tibial Artery, Open Approach (ICD-10-PCS; 2023-10-19)
PROC: 04CP0ZZ Extirpation of Matter from Right Anterior Tibial Artery, Open Approach (ICD-10-PCS; 2023-10-19)
PROC: X27J385 Dilation of Left Femoral Artery with Sustained Release Drug-eluting Intraluminal Device, Percutaneous Approach, New Technology Group 5 (ICD-10-PCS; 2023-10-19)
PROC: X27H385 Dilation of Right Femoral Artery with Sustained Release Drug-eluting Intraluminal Device, Percutaneous Approach, New Technology Group 5 (ICD-10-PCS; 2023-10-19)
PROC: 0KNT0ZZ Release Left Lower Leg Muscle, Open Approach (ICD-10-PCS; 2023-10-19)
PROC: 0KNT0ZZ Release Left Lower Leg Muscle, Open Approach (ICD-10-PCS; 2023-10-19)
PROC: 0KNS0ZZ Release Right Lower Leg Muscle, Open Approach (ICD-10-PCS; 2023-10-19)
PROC: 0KNS0ZZ Release Right Lower Leg Muscle, Open Approach (ICD-10-PCS; 2023-10-19)
PROC: 06HY33Z Insertion of Infusion Device into Lower Vein, Percutaneous Approach (ICD-10-PCS; 2023-10-19)
PROC: B41G1ZZ Fluoroscopy of Left Lower Extremity Arteries using Low Osmolar Contrast (ICD-10-PCS; 2023-10-19)
PROC: B41F1ZZ Fluoroscopy of Right Lower Extremity Arteries using Low Osmolar Contrast (ICD-10-PCS; 2023-10-19)
PROC: 3E043XZ Introduction of Vasopressor into Central Vein, Percutaneous Approach (ICD-10-PCS; 2023-10-19)
PROC: 5A1955Z Respiratory Ventilation, Greater than 96 Consecutive Hours (ICD-10-PCS; 2023-10-19)
PROC: 0D9670Z Drainage of Stomach with Drainage Device, Via Natural or Artificial Opening (ICD-10-PCS; 2023-10-19)
PROC: 04CN0ZZ Extirpation of Matter from Left Popliteal Artery, Open Approach (ICD-10-PCS; principal; 2023-10-19 13:44)
PROC: 04CM0ZZ Extirpation of Matter from Right Popliteal Artery, Open Approach (ICD-10-PCS; 2023-10-19 13:44)
PROC: 03HY32Z Insertion of Monitoring Device into Upper Artery, Percutaneous Approach (ICD-10-PCS; 2023-10-20)
PROC: 4A133B1 Monitoring of Arterial Pressure, Peripheral, Percutaneous Approach (ICD-10-PCS; 2023-10-20)
PROC: 4A133J1 Monitoring of Arterial Pulse, Peripheral, Percutaneous Approach (ICD-10-PCS; 2023-10-20)
PROC: 5A1D70Z Performance of Urinary Filtration, Intermittent, Less than 6 Hours Per Day (ICD-10-PCS; 2023-10-20)
PROC: 3E0G76Z Introduction of Nutritional Substance into Upper GI, Via Natural or Artificial Opening (ICD-10-PCS; 2023-10-20)
DX: A41.89 Other specified sepsis (principal); J96.01 Acute respiratory failure with hypoxia; R65.21 Severe sepsis with septic shock; N17.0 Acute kidney failure with tubular necrosis; U07.1 COVID-19; I74.3 Embolism and thrombosis of arteries of the lower extremities; I75.023 Atheroembolism of bilateral lower extremities; E87.20 Acidosis, unspecified; T79.A0XA Compartment syndrome, unspecified, initial encounter; L03.115 Cellulitis of right lower limb; L03.116 Cellulitis of left lower limb; L03.314 Cellulitis of groin; R57.1 Hypovolemic shock; E11.649 Type 2 diabetes mellitus with hypoglycemia without coma; E11.51 Type 2 diabetes mellitus with diabetic peripheral angiopathy without gangrene; I50.9 Heart failure, unspecified; I11.0 Hypertensive heart disease with heart failure; I70.223 Atherosclerosis of native arteries of extremities with rest pain, bilateral legs; E11.65 Type 2 diabetes mellitus with hyperglycemia; T79.6XXA Traumatic ischemia of muscle, initial encounter; Z66 Do not resuscitate; E83.51 Hypocalcemia; E83.39 Other disorders of phosphorus metabolism; E03.9 Hypothyroidism, unspecified; Z28.310 Unvaccinated for COVID-19; E78.5 Hyperlipidemia, unspecified; M19.90 Unspecified osteoarthritis, unspecified site; E86.1 Hypovolemia; E87.5 Hyperkalemia; B37.2 Candidiasis of skin and nail; B95.62 Methicillin resistant Staphylococcus aureus infection as the cause of diseases classified elsewhere; I25.10 Atherosclerotic heart disease of native coronary artery without angina pectoris; Z95.1 Presence of aortocoronary bypass graft; I25.2 Old myocardial infarction; Z86.73 Personal history of transient ischemic attack (TIA), and cerebral infarction without residual deficits; Z79.84 Long term (current) use of oral hypoglycemic drugs; Z79.899 Other long term (current) drug therapy; Z79.02 Long term (current) use of antithrombotics/antiplatelets; Z79.890 Hormone replacement therapy
CPT/HCPCS: 36415; 36430; 36558; 71045; 76770; 80048; 80053; 81001; 82330; 82550; 82805; 83036; 83605; 83690; 83735; 83935; 84100; 84145; 84484; 85025; 85027; 85610; 85730; 86140; 86706; 86850; 86900; 86901; 86920; 87040; 87070; 87077; 87086; 87186; 87205; 87340; 87636; 88304; 90935; 93005; 94002; 94003; 96361; 96365; 96375; 99291